=== PATIENT | male | born 1955 | race Caucasian/White ===

== ENCOUNTER → 2016-07-28 | Outpatient (CLI) | payer MEDICAID ==
[~2016-07-28] MED LIST: ALDACTONE; BUDE10.2 IH; BUDE6HFA INH; CHOLESTYRAMINE; CLCX200C; DIAZ10TA3 PO; DIAZ2TAB2 PO; FLUC100T PO; FURO20TA4 PO; FURO40TA4 PO; HYDR1TAB86 PO; LACT10SO33; LACT10SO33 PO; LANS30CA PO; LEVO500T2 PO; LNS30CCR; MAGN500C15 PO; MAGNESIUM PO; METH10TA12 PO; METH20TA34 PO; METO10TA3 PO; METO25TA PO; NR-TACRO1; NR-TACRO1 PO; OMEP20CA6; ONDN4T PO; OSLT75C PO; OXC5T; OXYC10TA7 PO; OXYC20TA4; OXYC30TA; OXYC30TA PO; OXYC30TA80 PO; OXYC80TA PO; OXYC80TA39 PO; OXYC80TA4 PO; OXYCODONE 30 MG PO; PHEN16.223 PO; PNT40TEC; POTA10TA10 PO; POTA10TA36 PO; PRD20T PO; PREG50C; RELISTOR12 SQ; RIFA550T PO; RT-ALBUINH IH; SENN-101 PO; SENN8.6T80 PO; SIME125C PO; SPIR100T PO; SPIR100T28 PO; SULF1TAB38 PO; TACR0.5C2 PO; TACR0.5C6 PO; [UNRECOGNIZED DRUG - CODE]; [UNRECOGNIZED DRUG - CODE]; [UNRECOGNIZED DRUG - CODE] PO; [UNRECOGNIZED DRUG - OTHER]; [UNRECOGNIZED DRUG - OTHER] PO
--- OUTSIDE RECORDS SUMMARY | 2016-07-28 10:06 | XMS REPORT | Continuity of Care Document ---
Author Author [facility] Organization [facility] Address Unknown Phone Unavailable Care Team Providers Care Cardiovascular Surgical Tech Name Role Phone Max Anne PCP Unavailable Source Comments Some departments are not documenting in the electronic medical record. If you do not see the information that you expected, contact Release of Information in the Health Information Management department at [phone] for further assistance in locating additional records.[facility] Active Allergies and Adverse Reactions Allergen Noted Date Severity Reactions Comments Codeine 12/16/2003 Medium NAUSEA ONLY, ITCHING, SEE Ringing in ears COMMENTS Fentanyl 03/06/2005 High SEE COMMENTS Restlessness, sleep loss, Hyperactivity Heparin Analogues 12/18/2003 Medium NAUSEA ONLY Sumatriptan 03/06/2005 High SEE COMMENTS Hypertension, Headache Current Medications Prescription Sig. Disp. Refills Start End Date Status Date oxycodone (OXY-IR) 30 mg Take 1 Tab by mouth Twice Active tablet Daily as needed. oxycodone SR (OXYCONTIN) Take 1 Tab by mouth Every Active 80 mg tablet 12 Hours. tacrolimus (PROGRAF) 1 mg Take 1 Cap by mouth Twice Active capsule Daily. lansoprazole DR Take 1 Cap by mouth Active (PREVACID) 30 mg capsule Daily. spironolactone Take 1 Tab by mouth Active (ALDACTONE) 100 mg tablet Daily. Cholestyramine, Bulk, Take 1 Packet by mouth Active Powd Four Times Daily. Lactulose 10 gram/15 mL Take 30 mL by mouth Three Active Syrp Times Daily as needed. oxycodone 5 mg capsule Take 1 Cap by mouth Every 30 Cap 0 10/30/19 Active 4 Hours as needed. 1-2 10 tablets as needed for pain Active Problems Not on file Most Recent Encounters Date Type Specialty Providers Description 07/25/2016 Telephone Transplant Surgery True, Beck, RN Labs Only Social History Tobacco Use Types Packs/Day Years Used Date Former Smoker Cigarettes 1 20 Alcohol Use Drinks/Week oz/Week Comments No Last Filed Vital Signs Vital Sign Reading Time Taken Blood Pressure 94/51 10/29/2009 6:00 AM CDT Pulse 79 10/29/2009 6:00 AM CDT Temperature 37.1 C (98.8 F) 10/29/2009 6:00 AM CDT Respiratory Rate - - Height 1.803 m (5' 11") 10/28/2009 9:00 AM CDT Weight 65.5 kg (144 lb 6.4 oz) 10/28/2009 9:00 AM CDT Body Mass Index 20.15 10/28/2009 9:00 AM CDT Oxygen Saturation 94% 10/29/2009 6:00 AM CDT Plan of Care Health Maintenance Due Date Last Done Comments Physical (Comprehensive) 10/10/1963 Exam Pertussis Vaccine 10/10/1967 Tetanus Vaccine 1973 Colorectal Cancer 2006 Screening Influenza Vaccine 03/09/2016 Hepatitis C Screening Completed 03/16/2004 Results from Last 3 Months Not on file
--- NOTE | 2016-07-28 11:34 | Diagnostic Imaging Report ---
PROCEDURE: US abdomen complete. TECHNIQUE: Multiple real-time grayscale images were obtained over the abdomen in various projections. INDICATION: Cirrhosis. FINDINGS: The visualized portions of the pancreas appear unremarkable. The liver is fairly homogeneous with no focal lesion seen. The portal vein is patent with hepatopetal flow seen. There is a TIPS stent seen that appears patent. The left lobe of the liver is partially obscured by bowel gas. The CBD is 1 cm in caliber, normal after cholecystectomy. The spleen is 15.0 x 7.4 x 5.4 cm, borderline enlarged. There is normal caliber of the visualized mid abdominal aorta. The IVC visualized portions appear unremarkable. The right kidney is 11.0 cm, and the left kidney is 11.8 cm in length. There is no hydronephrosis or focal lesion in either kidney. No ascites seen. IMPRESSION: Some limitations to this study as above. Patent TIPS stent seen. No definite abnormality. Dictated by: Dictated on workstation # [id number]
== END ==
LOC: RAD 10:03
PROVIDERS: ATTEND Internal Medicine Gastroenterology
DX: K74.60 Unspecified cirrhosis of liver (principal)
CPT/HCPCS: 76700

== ENCOUNTER → 2016-07-31 | Outpatient (CLI) | payer MEDICAID ==
--- OUTSIDE RECORDS SUMMARY | 2016-07-31 12:51 | XMS REPORT | Continuity of Care Document ---
Author Author [facility] Organization [facility] Address Unknown Phone Unavailable Care Team Providers Care Pet Adoption Counselor Name Role Phone Max Anne PCP Unavailable Source Comments Some departments are not documenting in the electronic medical record. If you do not see the information that you expected, contact Release of Information in the Health Information Management department at [phone] for further assistance in locating additional records.[facility] Active Allergies and Adverse Reactions Allergen Noted [...]
--- NOTE | 2016-07-31 14:32 | Diagnostic Imaging Report ---
PROCEDURE: CT chest without contrast. TECHNIQUE: Multiple contiguous axial images were obtained through the chest without the use of intravenous contrast. INDICATION: Lung mass, COPD. FINDINGS: The CT chest exam performed on 07/22/15 indicated multiple lung nodules primarily in the right lower lobe and right middle lobe. The subsequent PET/CT exam of 08/03/15 indicated that the nodules were not hypermetabolic in nature. The subsequent CT chest exam of 10/29/15 indicated that the nodules in the lungs have resolved with the exception of a 6 mm opacity in the anterior aspect of the right middle lobe and another 6 mm pleural-based nodule along the posterior aspect of the right upper lobe. Those findings are again evident on this study and no different. No other parenchymal nodule is identified. The emphysematous changes seen on the previous study are again visualized and no different. There is no sign of failure, pneumonia or pleural effusion to indicate an acute abnormality. The heart size is within normal limits and stable when compared to the prior exam. The aorta is not abnormally dilated. The prior study did note a 9.6 mm lymph node in the pretracheal region on the right. That finding is again evident and no different. A few other smaller mediastinal nodes are also seen and these appear stable as well. The prior study also identified 2 contiguous lymph nodes in the left axilla. These have a conglomerate size of approximately 1.6 cm. Those findings are again evident and no different. The thyroid gland is unremarkable. The sections through the upper abdomen fail to show any sign of an acute abnormality. The TIPS catheter noted previously is again evident. The bone windows show no evidence for a fracture or for a destructive lesion. IMPRESSION: 1. The 2 small nodules in the right middle lobe and right upper lung seen previously are again evident and no different. Most likely, these are benign. There is no other parenchymal nodule identified. A six-month followup CT chest exam would be recommended for continued evaluation. 2. The nodes in the mediastinum and left axilla seen previously are also again evident and unchanged. There is no new mediastinal or hilar adenopathy. 3. There are emphysematous changes involving both lungs but there is no sign of an acute cardiopulmonary abnormality. Dictated by: Dictated on workstation # [id number]
== END ==
LOC: RAD 12:48
PROVIDERS: ATTEND Nurse Practitioner Family
DX: R91.8 Other nonspecific abnormal finding of lung field (principal); J44.9 Chronic obstructive pulmonary disease, unspecified; F17.200 Nicotine dependence, unspecified, uncomplicated
CPT/HCPCS: 71250

== ENCOUNTER → 2016-11-08 | Outpatient (CLI) | payer MEDICAID ==
[2016-11-08 13:56] LABS: BASOPHILS # (AUTO) 0.1 10^3/uL (0.0-0.1); BASOPHILS % (AUTO) 1 % (0-10); EOSINOPHILS # (AUTO) 0.8 10^3/uL (0.0-0.3); EOSINOPHILS % (AUTO) 6 % (0-10); LYMPHOCYTES # (AUTO) 3.2 X 10^3 (1.0-4.0); LYMPHOCYTES % (AUTO) 25 % (12-44); MEAN CORPUSCULAR HEMOGLOBIN 31 PG (25-34); MEAN CORPUSCULAR HGB CONC 35 G/DL (32-36); MEAN CORPUSCULAR VOLUME 91 FL (80-99); MEAN PLATELET VOLUME 10.8 FL (7.4-10.4); MONOCYTES # (AUTO) 1.3 X 10^3 (0.0-1.0); MONOCYTES % (AUTO) 10 % (0-12); NEUTROPHILS # (AUTO) 7.6 X 10^3 (1.8-7.8); NEUTROPHILS % (AUTO) 59 % (42-75); PLATELET COUNT 110 10^3/uL (130-400); RED BLOOD COUNT 3.84 10^6/uL (4.35-5.85); RED CELL DISTRIBUTION WIDTH 14.5 % (10.0-14.5); WHITE BLOOD COUNT 12.9 10^3/uL (4.3-11.0)
[2016-11-08 14:13] LABS: ALBUMIN 3.3 G/DL (3.2-4.5); BILIRUBIN,TOTAL 1.3 MG/DL (0.1-1.0); CALCIUM 8.9 MG/DL (8.5-10.1); CREATININE SERUM 1.68 MG/DL (0.60-1.30); MAGNESIUM 1.5 MG/DL (1.8-2.4); POTASSIUM 4.1 MMOL/L (3.6-5.0); TOTAL PROTEIN 7.1 G/DL (6.4-8.2)
== END ==
LOC: LAB 12:53
PROVIDERS: ATTEND Internal Medicine Gastroenterology
DX: E83.42 Hypomagnesemia (principal)
CPT/HCPCS: 36415; 80053; 80197; 80306; 82140; 83735; 85025

== ENCOUNTER → 2016-11-27 | Outpatient (CLI) | payer MEDICAID | LOC: LAB 13:23 | PROVIDERS: ATTEND Internal Medicine Gastroenterology | DX: Z94.4 Liver transplant status (principal) | CPT/HCPCS: 36415; 80197 ==

== ENCOUNTER 2016-11-28 02:09 | Emergency (ER) | payer MEDICAID ==
[2016-11-28 02:18] VITALS: BP 0/0
== END 2016-11-28 02:18 | disposition left against medical advice (07) ==
LOC: EDUNIT# 02:09 → ER 02:13
DX: R53.81 Other malaise (principal); Z94.4 Liver transplant status; Z53.21 Procedure and treatment not carried out due to patient leaving prior to being seen by health care provider
CPT/HCPCS: 99281

== ENCOUNTER → 2016-12-21 | Outpatient (CLI) | payer MEDICAID ==
[2016-12-21 14:45] LABS: BASOPHILS # (AUTO) 0.1 10^3/uL (0.0-0.1); BASOPHILS % (AUTO) 1 % (0-10); EOSINOPHILS % (AUTO) 12 % (0-10); LYMPHOCYTES # (AUTO) 2.1 X 10^3 (1.0-4.0); LYMPHOCYTES % (AUTO) 27 % (12-44); MEAN CORPUSCULAR HEMOGLOBIN 32 PG (25-34); MEAN CORPUSCULAR HGB CONC 35 G/DL (32-36); MEAN CORPUSCULAR VOLUME 93 FL (80-99); MEAN PLATELET VOLUME 10.7 FL (7.4-10.4); MONOCYTES # (AUTO) 1.1 X 10^3 (0.0-1.0); MONOCYTES % (AUTO) 14 % (0-12); NEUTROPHILS # (AUTO) 3.6 X 10^3 (1.8-7.8); NEUTROPHILS % (AUTO) 46 % (42-75); PLATELET COUNT 104 10^3/uL (130-400); RED BLOOD COUNT 3.73 10^6/uL (4.35-5.85); RED CELL DISTRIBUTION WIDTH 14.6 % (10.0-14.5); WHITE BLOOD COUNT 7.8 10^3/uL (4.3-11.0)
[2016-12-21 15:00] LABS: BILIRUBIN,URINE NEGATIVE (NEGATIVE); KETONES,URINE NEGATIVE (NEGATIVE); LEUKOCYTE ESTERASE ,URINE NEGATIVE (NEGATIVE); NITRITE,URINE NEGATIVE (NEGATIVE); PH,URINE 5 (5-9); PROTEIN,URINE 3+ (NEGATIVE); UROBILINOGEN,URINE NORMAL (NORMAL)
[2016-12-21 15:08] LABS: SQUAMOUS EPITHELIAL CELL,UR 0-2 /HPF
[2016-12-21 15:09] LABS: BILIRUBIN,DIRECT 0.5 MG/DL (0.0-0.3); BILIRUBIN,INDIRECT 0.8 MG/DL; BILIRUBIN,TOTAL 1.3 MG/DL (0.1-1.0); CALCIUM 8.5 MG/DL (8.5-10.1); CREATININE SERUM 1.68 MG/DL (0.60-1.30); ICTERUS 0.8 (0-1.9); MAGNESIUM 1.8 MG/DL (1.8-2.4); PHOSPHORUS 3.2 MG/DL (2.3-4.7); POTASSIUM 4.1 MMOL/L (3.6-5.0); TOTAL PROTEIN 5.9 GM/DL (6.4-8.2); URIC ACID 6.5 MG/DL (2.6-7.2)
[2016-12-21 15:11] LABS: BAND NEUTROPHILS 1 %; BASOPHILS % (MANUAL) 0 %; EOSINOPHILS % (MANUAL) 6 %; LYMPHOCYTES % (MANUAL) 37 %; NEUTROPHILS % (MANUAL) 41 %
[2016-12-21 15:18] LABS: PROTEIN/CREATININE RATIO 1.42
[2016-12-22 07:14] LABS: CALCIUM PARA THYROID HORMONE 8.3 mg/dL (8.5-10.5)
== END ==
LOC: LAB 13:55
PROVIDERS: ATTEND Internal Medicine Nephrology
DX: E55.9 Vitamin D deficiency, unspecified (principal); J20.9 Acute bronchitis, unspecified; E83.42 Hypomagnesemia; N18.3 Chronic kidney disease, stage 3 (moderate)
CPT/HCPCS: 36415; 80069; 80076; 81000; 82306; 82550; 82570; 83735; 83970; 84156; 84550; 85007; 85025; 85027

== ENCOUNTER → 2016-12-26 | Outpatient (CLI) | payer MEDICAID | LOC: LAB 13:36 | PROVIDERS: ATTEND Internal Medicine Gastroenterology | DX: K74.60 Unspecified cirrhosis of liver (principal) | CPT/HCPCS: 36415; 82140 ==

== ENCOUNTER 2017-01-21 09:52 | Emergency (ER) | payer MEDICAID ==
[~2017-01-21] VITALS: Ht 182.9 cm; Wt 73.9 kg
[2017-01-21] MEDS ORDERED: morphine INJ 10 MG/ML 1ML (SYR OR VIAL) IM ONE (10:30)
--- NOTE | 2017-01-21 10:32 | ED Abdominal Pain ---
General Stated Complaint: R SIDE PAIN Source of Information: Patient Exam Limitations: No Limitations History of Present Illness Time Seen By Provider: 10:30 Initial Comments To ER with right-sided abdominal pain. His pain began over a month ago and has been worked up by Dr. Miller, photograph tinter in [place] as well as Dr. Phipps, box sorter in [place]. He was admitted to the hospital last week over there. He has a history of hepatitis C, liver transplant in 2004. History of chronic kidney disease. States that he is out of his oxycodone 80 mg tablets which he takes 3 times a day. He is scheduled to see Dr. Phipps tomorrow and Dr[facility]. He states he is here because he is out of his pain medication for the last 3 days and cannot Sleep. He denies fevers chills nausea vomiting or diarrhea. He does have discharge papers with him from [facility]. He states this pain is not new to him and is the reason that he takes his oxycodone but has been worse lately. He states he was told his transplanted liver was too large and is pushing on his ribs and that is the cause of his chronic pain. Timing/Duration: 2-3 Days Severity/Quality: Moderate Location: RUQ, RLQ Radiation: No Radiation Activities at Onset: None Allergies and Home Medications Allergies Coded Allergies: Heparin Analogues (Verified Allergy, Mild, 07/22/15) codeine (Verified Allergy, Unknown, TAKES OXYCODONE AT HOME, 07/22/15) fentanyl (Verified Allergy, Unknown, 07/22/15) sumatriptan (Verified Allergy, Unknown, 07/22/15) zolpidem (Verified Allergy, Unknown, 07/22/15) Uncoded Allergies: NSADS (Allergy, Unknown, 04/10/14) CONTRAST DYE/RADIOLOGY DYE (Adverse Reaction, Unknown, 04/10/14) DUE TO KIDNEY FUNCTION Home Medications Albuterol Sulfate 8.5 Gm Hfa.aer.ad, 2 PUFF IH Q4H PRN for SHORTNESS OF BREATH, (Reported) Budesonide/Formoterol Fumarate 10.2 Gm Hfa.aer.ad, 2 PUFF IH BID PRN for SHORTNESS OF BREATH, (Reported) Diazepam 10 Mg Tablet, 10 MG PO HS PRN for ANXIETY, (Reported) Fluconazole 100 Mg Tablet, 100 MG PO DAILY, #7 Prescribed by: MARJAN STANLEY on 07/24/1524 Lactulose 10 G/15 Ml Solution, 10 ML PO TID PRN, (Reported) NEEDED FOR HIGH AMONIA LEVELS Levofloxacin 500 Mg Tablet, 500 MG PO DAILY, #4 Prescribed by: MARJAN STANLEY on 07/24/1524 Magnesium Oxide 500 Mg Capsule, 500 MG PO DAILY, (Reported) Methylphenidate HCl 20 Mg Tablet, 20-40 MG PO DAILY, (Reported) TAKES 1 TO 2 (20 MG) TABLETS Oxycodone HCl 80 Mg Tab.er.12h, 80 MG PO TID, (Reported) Oxycodone HCl 30 Mg Tablet, 30 MG PO Q4H PRN for PAIN, (Reported) Potassium Chloride 10 Meq Tablet.er, 10 MEQ PO BID, (Reported) Rifaximin 550 Mg Tablet, 550 MG PO BID, (Reported) Senna 8.6 Mg Tab, 17.2 MG PO BID, (Reported) Tacrolimus 0.5 Mg Capsule, 1 MG PO DAILY, (Reported) TAKES 2 (0.5 MG) CAPSULES Tacrolimus Anhydrous 0.5 Mg Capsule, 0.5 MG PO HS, (Reported) Review of Systems Constitutional: see HPI EENTM: No Symptoms Reported Respiratory: No Symptoms Reported Cardiovascular: No Symptoms Reported Gastrointestinal: See HPI, Abdominal Pain, Denies Constipated, Denies Nausea Genitourinary: No Symptoms Reported Musculoskeletal: no symptoms reported Skin: no symptoms reported Psychiatric/Neurological: No Symptoms Reported Endocrine: No Symptoms Reported Past Qbhomju-Zeigyd-Wwfizq Hx Patient Social History Recent Foreign Travel: No Contact w/Someone Who Travel: No Immunizations Up To Date Tetanus Booster (TDap): Less than 5yrs PED Vaccines UTD: Yes Date of Pneumonia Vaccine: May 09, 2015 Date of Influenza Vaccine: Jul 22, 2015 Seasonal Allergies Seasonal Allergies: No Surgeries HX Surgeries: Yes (LIVER TRANSPLANT 2004. BROKEN LEFT ARM 2011. PORT PLACEMENT. LIVER SHUNT) Respiratory Hx Respiratory Disorders: Yes Respiratory Disorders: Asthma, Emphysema Cardiovascular Hx Cardiac Disorders: Yes Neurological Hx Neurological Disorders: Yes (CAUSED FROM ANTI REJECTION MED) Reproductive System Hx Reproductive Disorders: No Sexually Transmitted Disease: No HIV/AIDS: No Genitourinary Hx Genitourinary Disorders: Yes Genitourinary Disorders: Renal Failure Gastrointestinal Hx Gastrointestinal Disorders: Yes (chronic abdominal pain) Gastrointestinal Disorders: Liver Disease/Jaundice, Hepatitis, Gall Bladder Disease Musculoskeletal Hx Musculoskeletal Disorders: Yes ( right dislocated shoulde, broken arm age 13 & 2 years ago , siatica nerve) Musculoskeletal Disorders: Arthritis, Fractures Endocrine Hx Endocrine Disorders: No HEENT HX ENT Disorders: Yes (WEARS GLASSES) Loss of Vision: Denies Hearing Impairment: Hard of Hearing Cancer Hx Cancer: Yes Cancer: Liver Psychosocial Hx Psychiatric Problems: Yes Behavioral Health Disorders: Anxiety, Depression Integumentary HX Skin/Integumentary Disorder: Yes (BRUISES EASY) Blood Transfusions Hx Blood Disorders: No Adverse Reaction to a Blood Tr: No Family Medical History Family Medial History: Not obtainable due to adoption Physical Exam Vital Signs Capillary Refill : General Appearance: WD/WN, no apparent distress, other (appears chronically ill and older than stated age) HEENT: PERRL/EOMI, normal ENT inspection Neck: non-tender, full range of motion Respiratory: no respiratory distress, no accessory muscle use, decreased breath sounds Cardiovascular: regular rate, rhythm, no murmur Gastrointestinal: normal bowel sounds, soft, tenderness (slight tenderness right side of the abdomen) Extremities: normal range of motion, non-tender Neurologic/Psychiatric: alert, normal mood/affect, oriented x 3 Skin: normal color, warm/dry Progress/Results/Core Measures Results/Orders My Orders Orders - MAXIME AMAYA APRN Morphine Injection (Morphine Injection (01/21/17 10:30) Departure Impression Impression: Primary Impression: Chronic pain Disposition: 01 HOME, SELF-CARE Condition: Stable Departure-Patient Inst. Decision time for Depature: 10:37 Referrals: TEREZA JAVIER MD (PCP/Family) Primary Care Physician Patient Instructions: CHRONIC PAIN Add. Discharge Instructions: 1. Return to ER for any concerns such as fevers chills or feeling poorly 2. Follow-up with your doctor as scheduled this week MAXIME AMAYA APRN Jan 21, 2017 10:32
[2017-01-21 10:55] VITALS: BP 185/99
== END 2017-01-21 10:55 | disposition home or self-care (01) ==
LOC: EDUNIT# 09:52 → ER 09:54
DX: R10.11 Right upper quadrant pain (principal); R10.31 Right lower quadrant pain; G89.29 Other chronic pain; J43.9 Emphysema, unspecified; J45.909 Unspecified asthma, uncomplicated; B19.20 Unspecified viral hepatitis C without hepatic coma; N18.9 Chronic kidney disease, unspecified; F41.9 Anxiety disorder, unspecified; F32.9 Major depressive disorder, single episode, unspecified; M19.90 Unspecified osteoarthritis, unspecified site; Z87.19 Personal history of other diseases of the digestive system; Z94.4 Liver transplant status
CPT/HCPCS: 96372; 99284

== ENCOUNTER 2017-01-21 19:43 | Emergency (ER) | payer MEDICAID ==
[~2017-01-21] VITALS: Ht 182.9 cm; Wt 78.5 kg
[2017-01-21 20:05] VITALS: BP 160/97
--- NOTE | 2017-01-21 20:11 | ED Abdominal Pain ---
General Chief Complaint: General Problems/Pain Stated Complaint: SIDE AB PAIN Nursing Triage Note: Patient advises he was seen this am secondary to right abdominal pain. He advised that he received a shot of morphine that has since worn off and he is experiencing pain again. Sepsis Screen: No Definite Risk Source of Information: Patient Exam Limitations: No Limitations History of Present Illness Time Seen By Provider: 20:08 Initial Comments To ER with severe right-sided abdominal pain. Patient was seen here earlier this morning for the same complaint. He states that he been out of his pain medicine since and his abdominal pain is being worked up by Dr. Miller and his nurse aide evaluator in [place]. The pain is not new to him is been present for over a month. He takes oxycodone extended release 80 mg tablets 3 times a day. He was prescribed a 28 day supply of these 24 days ago and states that he ran out 4 days ago. He denies fevers chills constipation diarrhea or vomiting. Severity/Quality: Severe Location: RUQ, RLQ Radiation: No Radiation Allergies and Home Medications Allergies Coded Allergies: Heparin Analogues (Verified Allergy, Mild, 07/22/15) codeine (Verified Allergy, Unknown, TAKES OXYCODONE AT HOME, 07/22/15) fentanyl (Verified Allergy, Unknown, 07/22/15) sumatriptan (Verified Allergy, Unknown, 07/22/15) zolpidem (Verified Allergy, Unknown, 07/22/15) Uncoded Allergies: NSADS (Allergy, Unknown, 04/10/14) CONTRAST DYE/RADIOLOGY DYE (Adverse Reaction, Unknown, 04/10/14) DUE TO KIDNEY FUNCTION Home Medications Albuterol Sulfate 8.5 Gm Hfa.aer.ad, 2 PUFF IH Q4H PRN for SHORTNESS OF BREATH, (Reported) Budesonide/Formoterol Fumarate 10.2 Gm Hfa.aer.ad, 2 PUFF IH BID PRN for SHORTNESS OF BREATH, (Reported) Diazepam 10 Mg Tablet, 10 MG PO HS PRN for ANXIETY, (Reported) Fluconazole 100 Mg Tablet, 100 MG PO DAILY, #7 Prescribed by: MARJAN STANLEY on 07/24/15 0924 Lactulose 10 G/15 Ml Solution, 10 ML PO TID PRN, (Reported) NEEDED FOR HIGH AMONIA LEVELS Levofloxacin 500 Mg Tablet, 500 MG PO DAILY, #4 Prescribed by: AMRJAN STANLEY on 07/24/15 0924 Magnesium Oxide 500 Mg Capsule, 500 MG PO DAILY, (Reported) Methylphenidate HCl 20 Mg Tablet, 20-40 MG PO DAILY, (Reported) TAKES 1 TO 2 (20 MG) TABLETS Oxycodone HCl 80 Mg Tab.er.12h, 80 MG PO TID, (Reported) Oxycodone HCl 30 Mg Tablet, 30 MG PO Q4H PRN for PAIN, (Reported) Potassium Chloride 10 Meq Tablet.er, 10 MEQ PO BID, (Reported) Rifaximin 550 Mg Tablet, 550 MG PO BID, (Reported) Senna 8.6 Mg Tab, 17.2 MG PO BID, (Reported) Tacrolimus 0.5 Mg Capsule, 1 MG PO DAILY, (Reported) TAKES 2 (0.5 MG) CAPSULES Tacrolimus Anhydrous 0.5 Mg Capsule, 0.5 MG PO HS, (Reported) Review of Systems Constitutional: see HPI EENTM: No Symptoms Reported Respiratory: No Symptoms Reported Cardiovascular: No Symptoms Reported Gastrointestinal: See HPI, Abdominal Pain Genitourinary: No Symptoms Reported Musculoskeletal: no symptoms reported Skin: no symptoms reported Psychiatric/Neurological: No Symptoms Reported Past Kcozynw-Aunbcg-Kjgfzg Hx Patient Social History Alcohol Use: Occasionally Uses Recreational Drug Use: No Smoking Status: Current Everyday Smoker Type Used: Cigarettes 2nd Hand Smoke Exposure: Yes Recent Foreign Travel: No Contact w/Someone Who Travel: No Recent Infectious Disease Expo: No Immunizations Up To Date Tetanus Booster (TDap): Less than 5yrs PED Vaccines UTD: Yes Date of Pneumonia Vaccine: May 09, 2015 Date of Influenza Vaccine: Jul 22, 2015 Seasonal Allergies Seasonal Allergies: No Surgeries HX Surgeries: Yes (LIVER TRANSPLANT 2004. BROKEN LEFT ARM 2011. PORT PLACEMENT. LIVER SHUNT) Respiratory Hx Respiratory Disorders: Yes Respiratory Disorders: Asthma, Emphysema Cardiovascular Hx Cardiac Disorders: Yes Neurological Hx Neurological Disorders: Yes (CAUSED FROM ANTI REJECTION MED) Reproductive System Hx Reproductive Disorders: No Sexually Transmitted Disease: No HIV/AIDS: No Genitourinary Hx Genitourinary Disorders: Yes Genitourinary Disorders: Renal Failure Gastrointestinal Hx Gastrointestinal Disorders: Yes (chronic abdominal pain) Gastrointestinal Disorders: Liver Disease/Jaundice, Hepatitis, Gall Bladder Disease Musculoskeletal Hx Musculoskeletal Disorders: Yes ( right dislocated shoulde, broken arm age 13 & 2 years ago , siatica nerve) Musculoskeletal Disorders: Arthritis, Fractures Endocrine Hx Endocrine Disorders: No HEENT HX ENT Disorders: Yes (WEARS GLASSES) Loss of Vision: Denies Hearing Impairment: Hard of Hearing Cancer Hx Cancer: Yes Cancer: Liver Psychosocial Hx Psychiatric Problems: Yes Behavioral Health Disorders: Anxiety, Depression Integumentary HX Skin/Integumentary Disorder: Yes (BRUISES EASY) Blood Transfusions Hx Blood Disorders: No Adverse Reaction to a Blood Tr: No Family Medical History Family Medial History: Not obtainable due to adoption Physical Exam Vital Signs VS - Last 72 Hours, by Label 01/21/17 01/21/17 19:59 20:05 Temp 98.7 Pulse 71 71 Resp 16 16 B/P (MAP) 160/97 Pulse Ox 97 97 O2 Delivery Room Air Room Air Capillary Refill : Less Than 3 Seconds General Appearance: WD/WN, no apparent distress, other (I advised the patient that if his pain is so severe we should check blood work. However I would not be giving another shot of morphine or refilling his oxycodone prescription before determining the cause of his abdominal pain. He states "well then admit me!". Advised him that I could not do this without checking blood work area patient states "no, I'm having labs drawn tomorrow when you're not checking them tonight". He states he will be leaving and talking with administration tomorrow) Progress/Results/Core Measures Results/Orders Vital Signs/I&O Vital Sign - Last 12Hours 01/21/17 01/21/17 19:59 20:05 Temp 98.7 Pulse 71 71 Resp 16 16 B/P (MAP) 160/97 Pulse Ox 97 97 O2 Delivery Room Air Room Air Blood Pressure Mean: 118 Departure Impression Impression: Primary Impression: Left against medical advice Disposition: 07 AGAINST MEDICAL ADVICE Condition: Against Medical Advice Departure-Patient Inst. Referrals: TEREZA JAVIER MD (PCP/Family) Primary Care Physician MAXIME AMAYA APRN Jan 21, 2017 20:11
== END 2017-01-21 20:06 | disposition left against medical advice (07) ==
LOC: EDUNIT# 19:43 → ER 19:45
DX: R10.11 Right upper quadrant pain (principal); R10.31 Right lower quadrant pain; J43.9 Emphysema, unspecified; J45.909 Unspecified asthma, uncomplicated; F41.9 Anxiety disorder, unspecified; F32.9 Major depressive disorder, single episode, unspecified; M19.90 Unspecified osteoarthritis, unspecified site; F17.210 Nicotine dependence, cigarettes, uncomplicated; Z85.05 Personal history of malignant neoplasm of liver; Z87.19 Personal history of other diseases of the digestive system; Z94.4 Liver transplant status
CPT/HCPCS: 99281

== ENCOUNTER → 2017-01-25 | Outpatient (CLI) | payer MEDICAID ==
[~2017-01-25] MED LIST changes: +AMLO5TAB2 PO; +CHOL20003 PO; +LACT10SO PO; +MAGN500T PO; +METH-288 PO; +METH10TA3 PO; +NADO40TA PO; +SENN-1 PO; +TACR0.5C PO
[2017-01-25 13:29] LABS: BASOPHILS # (AUTO) 0.1 10^3/uL (0.0-0.1); BASOPHILS % (AUTO) 1 % (0-10); BILIRUBIN,URINE NEGATIVE (NEGATIVE); EOSINOPHILS % (AUTO) 11 % (0-10); KETONES,URINE NEGATIVE (NEGATIVE); LEUKOCYTE ESTERASE ,URINE NEGATIVE (NEGATIVE); LYMPHOCYTES # (AUTO) 2.4 X 10^3 (1.0-4.0); LYMPHOCYTES % (AUTO) 24 % (12-44); MEAN CORPUSCULAR HEMOGLOBIN 32 PG (25-34); MEAN CORPUSCULAR HGB CONC 34 G/DL (32-36); MEAN CORPUSCULAR VOLUME 95 FL (80-99); MEAN PLATELET VOLUME 11.2 FL (7.4-10.4); MONOCYTES # (AUTO) 1.4 X 10^3 (0.0-1.0); MONOCYTES % (AUTO) 14 % (0-12); NEUTROPHILS # (AUTO) 4.9 X 10^3 (1.8-7.8); NEUTROPHILS % (AUTO) 50 % (42-75); NITRITE,URINE NEGATIVE (NEGATIVE); PH,URINE 5 (5-9); PLATELET COUNT 127 10^3/uL (130-400); PROTEIN,URINE 3+ (NEGATIVE); RED BLOOD COUNT 4.01 10^6/uL (4.35-5.85); RED CELL DISTRIBUTION WIDTH 14.4 % (10.0-14.5); UROBILINOGEN,URINE NORMAL (NORMAL); WHITE BLOOD COUNT 9.8 10^3/uL (4.3-11.0)
[2017-01-25 13:36] LABS: SQUAMOUS EPITHELIAL CELL,UR 0-2 /HPF; WBC,URINE 0-2 /HPF
[2017-01-25 13:46] LABS: PROTEIN/CREATININE RATIO 0.69
[2017-01-25 13:47] LABS: ALBUMIN 2.9 GM/DL (3.2-4.5); CALCIUM 8.3 MG/DL (8.5-10.1); CREATININE SERUM 2.17 MG/DL (0.60-1.30); PHOSPHORUS 3.2 MG/DL (2.3-4.7); POTASSIUM 4.2 MMOL/L (3.6-5.0)
== END ==
LOC: LAB 13:00
PROVIDERS: ATTEND Internal Medicine Nephrology
DX: N18.3 Chronic kidney disease, stage 3 (moderate) (principal)
CPT/HCPCS: 36415; 80069; 81000; 82570; 84156; 85025

== ENCOUNTER → 2017-01-30 | Outpatient (CLI) | payer MEDICAID ==
[2017-01-30 16:34] LABS: ALBUMIN 2.9 GM/DL (3.2-4.5); CALCIUM 8.2 MG/DL (8.5-10.1); CREATININE SERUM 1.82 MG/DL (0.60-1.30); PHOSPHORUS 2.4 MG/DL (2.3-4.7); POTASSIUM 4.1 MMOL/L (3.6-5.0)
== END ==
LOC: LAB 16:05
PROVIDERS: ATTEND Internal Medicine Nephrology
DX: N18.3 Chronic kidney disease, stage 3 (moderate) (principal)
CPT/HCPCS: 36415; 80069

== ENCOUNTER → 2017-02-21 | Outpatient (CLI) | payer MEDICAID ==
[~2017-02-21] MED LIST changes: -AMLO5TAB2 PO; -CHOL20003 PO; -LACT10SO PO; -MAGN500T PO; -METH-288 PO; -METH10TA3 PO; -NADO40TA PO; -SENN-1 PO; -TACR0.5C PO
[2017-02-21 14:28] LABS: BILIRUBIN,URINE NEGATIVE (NEGATIVE); KETONES,URINE NEGATIVE (NEGATIVE); LEUKOCYTE ESTERASE ,URINE NEGATIVE (NEGATIVE); NITRITE,URINE NEGATIVE (NEGATIVE); PH,URINE 5 (5-9); PROTEIN,URINE 2+ (NEGATIVE); UROBILINOGEN,URINE NORMAL (NORMAL)
[2017-02-21 14:48] LABS: PROTEIN/CREATININE RATIO 0.8; SQUAMOUS EPITHELIAL CELL,UR RARE /HPF
[2017-02-21 14:54] LABS: BASOPHILS # (AUTO) 0.1 10^3/uL (0.0-0.1); BASOPHILS % (AUTO) 1 % (0-10); EOSINOPHILS # (AUTO) 1.6 10^3/uL (0.0-0.3); EOSINOPHILS % (AUTO) 15 % (0-10); LYMPHOCYTES # (AUTO) 2.9 X 10^3 (1.0-4.0); LYMPHOCYTES % (AUTO) 27 % (12-44); MEAN CORPUSCULAR HEMOGLOBIN 32 PG (25-34); MEAN CORPUSCULAR HGB CONC 34 G/DL (32-36); MEAN CORPUSCULAR VOLUME 93 FL (80-99); MEAN PLATELET VOLUME 10.7 FL (7.4-10.4); MONOCYTES # (AUTO) 1.5 X 10^3 (0.0-1.0); MONOCYTES % (AUTO) 14 % (0-12); NEUTROPHILS # (AUTO) 4.8 X 10^3 (1.8-7.8); NEUTROPHILS % (AUTO) 44 % (42-75); PLATELET COUNT 143 10^3/uL (130-400); RED CELL DISTRIBUTION WIDTH 14.1 % (10.0-14.5)
[2017-02-21 14:57] LABS: ALBUMIN 3.4 GM/DL (3.2-4.5); CALCIUM 8.8 MG/DL (8.5-10.1); CREATININE SERUM 2.04 MG/DL (0.60-1.30); PHOSPHORUS 2.7 MG/DL (2.3-4.7); POTASSIUM 3.8 MMOL/L (3.6-5.0)
== END ==
LOC: LAB 14:20
PROVIDERS: ATTEND Internal Medicine Nephrology
DX: N18.3 Chronic kidney disease, stage 3 (moderate) (principal)
CPT/HCPCS: 36415; 80069; 81000; 82570; 84156; 85025

== ENCOUNTER → 2017-02-21 | Outpatient (CLI) | payer MEDICAID ==
[2017-02-21 14:39] LABS: CALCIUM 8.6 MG/DL (8.5-10.1); CREATININE SERUM 2.05 MG/DL (0.60-1.30); POTASSIUM 3.8 MMOL/L (3.6-5.0)
== END ==
LOC: LAB 13:42
PROVIDERS: ATTEND Internal Medicine Gastroenterology
DX: K74.60 Unspecified cirrhosis of liver (principal)
CPT/HCPCS: 36415; 80048; 82140

== ENCOUNTER → 2017-03-05 | Outpatient (CLI) | payer MEDICAID ==
[2017-03-05 14:34] LABS: CREATININE SERUM 1.71 MG/DL (0.60-1.30); POTASSIUM 3.9 MMOL/L (3.6-5.0)
== END ==
LOC: LAB 13:54
PROVIDERS: ATTEND Internal Medicine Gastroenterology
DX: K74.60 Unspecified cirrhosis of liver (principal)
CPT/HCPCS: 36415; 80048

== ENCOUNTER → 2017-03-05 | Outpatient (CLI) | payer MEDICAID ==
[2017-03-05 14:38] LABS: CREATININE SERUM 1.71 MG/DL (0.60-1.30); POTASSIUM 3.9 MMOL/L (3.6-5.0)
[2017-03-05 14:39] LABS: ALBUMIN 3.4 GM/DL (3.2-4.5); PHOSPHORUS 2.8 MG/DL (2.3-4.7)
== END ==
LOC: LAB 13:49
PROVIDERS: ATTEND Internal Medicine Nephrology
DX: N18.3 Chronic kidney disease, stage 3 (moderate) (principal)
CPT/HCPCS: 36415; 80069

== ENCOUNTER → 2017-03-16 | Outpatient (CLI) | payer MEDICAID ==
[~2017-03-16] MED LIST changes: +AMLO5TAB2 PO; +CHOL20003 PO; +LACT10SO PO; +MAGN500T PO; +METH-288 PO; +METH10TA3 PO; +NADO40TA PO; +SENN-1 PO; +TACR0.5C PO
[2017-03-16 12:23] LABS: ALBUMIN 3.1 GM/DL (3.2-4.5); CALCIUM 8.9 MG/DL (8.5-10.1); CREATININE SERUM 1.91 MG/DL (0.60-1.30); POTASSIUM 3.9 MMOL/L (3.6-5.0)
== END ==
LOC: LAB 11:27
PROVIDERS: ATTEND Internal Medicine Nephrology
DX: I12.9 Hypertensive chronic kidney disease with stage 1 through stage 4 chronic kidney disease, or unspecified chronic kidney disease (principal); N18.3 Chronic kidney disease, stage 3 (moderate); R80.8 Other proteinuria; Z94.4 Liver transplant status
CPT/HCPCS: 36415; 80069; 80197; 82550

== ENCOUNTER 2017-03-28 23:29 | Inpatient (IN) | payer MEDICAID ==
[~2017-03-28] VITALS: Ht 182.9 cm; Wt 83.1 kg
[~2017-03-28 23:29] MED LIST changes: -AMLO5TAB2 PO; -CHOL20003 PO; -LACT10SO PO; -MAGN500T PO; -METH-288 PO; -METH10TA3 PO; -NADO40TA PO; +RT-ALBUTEROL/IPRATROPIUM 3 ML (DUONEB) VIAL ONE; +RT-IPRATROPIUM (ATROVENT) 0.5MG/2.5ML AMP IH ONE; -SENN-1 PO; -TACR0.5C PO
--- OUTSIDE RECORDS SUMMARY | 2017-03-28 23:35 | XMS REPORT | Clinical Summary ---
Author Author [facility] Organization [facility] Address Unknown Phone Unavailable Care Team Providers Care First Officer Name Role Phone PCP Unavailable Source Comments Some departments are not documenting in the electronic medical record. If you do not see the information that you expected, contact Release of Information in the Health Information Management department at [phone] for further assistance in locating additional records.[facility] Allergies Active Allergy Reactions Severity Noted Date Comments Fentanyl SEE COMMENTS High 03/06/2005 Restlessness, sleep loss, Hyperactivity Sumatriptan SEE COMMENTS High 03/06/2005 Hypertension, Headache Codeine NAUSEA ONLY, ITCHING, SEE Medium 12/16/2003 Ringing in ears COMMENTS Heparin Analogues NAUSEA ONLY Medium 12/18/2003 Current Medications Prescription Sig. Disp. Refills Start [...] for pain Active Problems Not on file Social History Tobacco Use Types Packs/Day Years Used Date Former Smoker Cigarettes 1 20 Alcohol Use Drinks/Week oz/Week Comments No Sex Assigned at Date Recorded Not on file Last Filed Vital Signs Vital Sign Reading Time Taken Blood Pressure 94/51 10/29/2009 6:00 AM CDT Pulse 79 10/29/2009 6:00 AM CDT Temperature 37.1 C (98.8 F) 10/29/2009 6:00 AM CDT Respiratory Rate - - Oxygen Saturation 94% 10/29/2009 6:00 AM CDT Inhaled Oxygen - - Concentration Weight 65.5 kg (144 lb 6.4 oz) 10/28/2009 9:00 AM CDT Height 180.3 cm (5' 11") 10/28/2009 9:00 AM CDT Body Mass Index 20.14 10/28/2009 9:00 AM CDT Plan of Treatment Health Maintenance Due Date Last Done Comments PHYSICAL (COMPREHENSIVE) 10/10/1963 EXAM PERTUSSIS VACCINE 10/10/1967 TETANUS VACCINE 1973 COLORECTAL CANCER 2006 SCREENING SHINGLES VACCINE 2016 INFLUENZA VACCINE 04/08/2017 HEPATITIS C SCREENING Completed 03/16/2004 Results Not on filefrom Last 3 Months
--- OUTSIDE RECORDS SUMMARY | 2017-03-28 23:36 | XMS REPORT ---
Author Author TEREZA JAVIER [facility] Address [address] [place] [address] Care Team Providers Care First Coat Operator Name Role Phone TEREZA JAVIER Unavailable PROBLEMS Type Condition ICD9-CM Code [id number] Code Onset Dates Condition Status SNOMED Code Problem Essential hypertension I10 Active 62006025 Problem Reactive depression F32.9 Active 97930841 Problem ZOSTAVAX DX V05.8 Active 35421018 Problem History of liver transplant Z94.4 Active 899133049 Problem Sciatica of left side M54.32 Active 27499932 ALLERGIES Unknown Allergies SOCIAL HISTORY No smoking Hx information available PLAN OF CARE VITAL SIGNS MEDICATIONS Medication Instructions Dosage Frequency Start Date End Date Duration Status OxyContin 80 MG Orally 3 times a day 1 tablet 8h Jul, Active Oxycodone HCl 30 MG Orally every 4 hours as needed 1 tablet Jul, Active RESULTS No Results PROCEDURES No Known procedures IMMUNIZATIONS No Known Immunizations
--- OUTSIDE RECORDS SUMMARY | 2017-03-28 23:36 | XMS REPORT ---
Author Author TEREZA JAVIER [facility] Address [address] [place] [address] Care Team Providers Care Truck Repair Service Estimator Name Role Phone TEREZA JAVIER Unavailable PROBLEMS Type Condition ICD9-CM Code [id number] Code Onset Dates Condition Status SNOMED Code Problem Essential hypertension I10 Active 72025998 Problem Reactive depression F32.9 Active 91432439 Problem ZOSTAVAX DX V05.8 Active 39686059 Problem History of liver transplant Z94.4 Active 569855000 Problem Sciatica of left side M54.32 Active 05192104 ALLERGIES Unknown Allergies SOCIAL HISTORY No smoking Hx information available PLAN OF CARE VITAL SIGNS MEDICATIONS Medication Instructions Dosage Frequency Start Date End Date Duration Status Oxycodone HCl 30 MG Orally every 4 hours as needed 1 tablet Aug, Active OxyContin 80 MG Orally 3 times a day 1 tablet 8h Aug, Active RESULTS No Results PROCEDURES No Known procedures IMMUNIZATIONS No Known Immunizations
[2017-03-28] MEDS ORDERED: PROPOFOL DRIP (ICU) 100 ML IV SCH (23:45)
[2017-03-28] MEDS ORDERED: ETOMIDATE IV SOLN 20 MG/10 ML VIAL IV ONE (23:45)
[2017-03-28] MEDS ORDERED: NS IV 1000 ML 1,000 ML IV SCH (23:45)
[2017-03-28] MEDS ORDERED: SUCCINYLCHOLINE INJ 100 MG/5 ML SYR INJ ONE (23:45)
[2017-03-28 23:49] LABS: BASOPHILS % (AUTO) 0 % (0-10); EOSINOPHILS # (AUTO) 0.6 10^3/uL (0.0-0.3); EOSINOPHILS % (AUTO) 3 % (0-10); LYMPHOCYTES # (AUTO) 2.6 X 10^3 (1.0-4.0); LYMPHOCYTES % (AUTO) 14 % (12-44); MEAN CORPUSCULAR HEMOGLOBIN 32 PG (25-34); MEAN CORPUSCULAR HGB CONC 34 G/DL (32-36); MEAN CORPUSCULAR VOLUME 93 FL (80-99); MEAN PLATELET VOLUME 11.3 FL (7.4-10.4); MONOCYTES # (AUTO) 0.8 X 10^3 (0.0-1.0); MONOCYTES % (AUTO) 4 % (0-12); NEUTROPHILS # (AUTO) 14.8 X 10^3 (1.8-7.8); NEUTROPHILS % (AUTO) 79 % (42-75); PLATELET COUNT 137 10^3/uL (130-400); RED BLOOD COUNT 3.66 10^6/uL (4.35-5.85); RED CELL DISTRIBUTION WIDTH 14.3 % (10.0-14.5); WHITE BLOOD COUNT 18.8 10^3/uL (4.3-11.0)
[2017-03-28] MEDS ORDERED: RT-ALBUTEROL/IPRATROPIUM 3 ML (DUONEB) VIAL ONE (23:56)
--- NOTE | 2017-03-28 23:56 | ED Neurological Problem ---
General Stated Complaint: CHOKING Source: patient, EMS, spouse Exam Limitations: clinical condition History of Present Illness Time seen by provider: 23:30 Initial Comments Patient presents to ER by EMS with chief complaint of altered mental status, choking. EMS reports that they were called on scene because the patient was choking on some pills had earlier per had some choking on food. He said he was very short of breath when they arrived he was in the car at the police station where they family members had drove him to. They loaded him up and started moving indoors ER and S1 they noticed he had a heart rate in the 40s and a sat duration rate in the 70s so they put him on a nonrebreather and were contemplating RSI but the patient was talking. Patient gives little history that he was short of breath but not having any pain anywhere or nausea. The reports that earlier this week the patient was obtunded and not taking his rifaximin or his lactulose for his liver failure as she is status post liver transplant and that his ammonia gotten up to 88 but after they got him back on his medicines he was improving and he just had lab this morning outpatient at [facility] lab. The ammonia this morning was 65. She says the patient this morning was having some problems choking on his food all of the dinner table and got up and ran to the bathroom and threw up some of it but otherwise was doing just fine feeling well again. Then tonight she was giving him his pills and saw them including the potassium and the rifaximin or very large pills so she has been getting them little bit by little bit and he still had a problem getting them down to like he was choking on them. She says after that he told her he was very short of breath. This worried her so she loaded him in the car drove the police station. Of note she says he also has a triple a but does not know how big it is and is never received any surgical attention. She denies any history of coronary disease or CHF. She says for the past couple days she's been coughing up frothy sputum. Allergies and Home Medications Allergies Coded Allergies: Heparin Analogues (Verified Allergy, Mild, 07/22/15) codeine (Verified Allergy, Unknown, TAKES OXYCODONE AT HOME, 07/22/15) fentanyl (Verified Allergy, Unknown, 07/22/15) sumatriptan (Verified Allergy, Unknown, 07/22/15) zolpidem (Verified Allergy, Unknown, 07/22/15) Uncoded Allergies: NSADS (Allergy, Unknown, 04/10/14) CONTRAST DYE/RADIOLOGY DYE (Adverse Reaction, Unknown, 04/10/14) DUE TO KIDNEY FUNCTION Home Medications Albuterol Sulfate 8.5 Gm Hfa.aer.ad, 2 PUFF IH Q4H PRN for SHORTNESS OF BREATH, (Reported) Budesonide/Formoterol Fumarate 10.2 Gm Hfa.aer.ad, 2 PUFF IH BID PRN for SHORTNESS OF BREATH, (Reported) Diazepam 10 Mg Tablet, 10 MG PO HS PRN for ANXIETY, (Reported) Fluconazole 100 Mg Tablet, 100 MG PO DAILY, #7 Prescribed by: MARJAN STANLEY on 07/24/15 0924 Lactulose 10 G/15 Ml Solution, 10 ML PO TID PRN, (Reported) NEEDED FOR HIGH AMONIA LEVELS Levofloxacin 500 Mg Tablet, 500 MG PO DAILY, #4 Prescribed by: MARJAN STANLEY on 07/24/15 0924 Magnesium Oxide 500 Mg Capsule, 500 MG PO DAILY, (Reported) Methylphenidate HCl 20 Mg Tablet, 20-40 MG PO DAILY, (Reported) TAKES 1 TO 2 (20 MG) TABLETS Oxycodone HCl 80 Mg Tab.er.12h, 80 MG PO TID, (Reported) Oxycodone HCl 30 Mg Tablet, 30 MG PO Q4H PRN for PAIN, (Reported) Potassium Chloride 10 Meq Tablet.er, 10 MEQ PO BID, (Reported) Rifaximin 550 Mg Tablet, 550 MG PO BID, (Reported) Senna 8.6 Mg Tab, 17.2 MG PO BID, (Reported) Tacrolimus 0.5 Mg Capsule, 1 MG PO DAILY, (Reported) TAKES 2 (0.5 MG) CAPSULES Tacrolimus Anhydrous 0.5 Mg Capsule, 0.5 MG PO HS, (Reported) Constitutional: see HPI (a thorough review of systems was unable to be obtained secondary to the patient's clinical condition) Past Ulehqsq-Iwsmko-Olkqrx Hx Patient Social History Alcohol Use: Denies Use Recreational Drug Use: No Smoking Status: Current Everyday Smoker Type Used: Cigarettes 2nd Hand Smoke Exposure: Yes Recent Foreign Travel: No Contact w/Someone Who Travel: No Immunizations Up To Date Tetanus Booster (TDap): Less than 5yrs PED Vaccines UTD: Yes Date of Pneumonia Vaccine: May 09, 2015 Date of Influenza Vaccine: Jul 22, 2015 Seasonal Allergies Seasonal Allergies: No Respiratory Respiratory Disorders: Asthma, Emphysema Currently Using CPAP: No Currently Using BIPAP: No Reproductive System Hx Reproductive Disorders: No Sexually Transmitted Disease: No HIV/AIDS: No Genitourinary Genitourinary Disorders: Renal Failure Gastrointestinal Gastrointestinal Disorders: Liver Disease/Jaundice, Hepatitis, Gall Bladder Disease Musculoskeletal Musculoskeletal Disorders: Arthritis, Fractures HEENT Loss of Vision: Denies Hearing Impairment: Hard of Hearing Cancer Cancer: Liver Psychosocial Behavioral Health Disorders: Anxiety, Depression Blood Transfusions Adverse Reaction to a Blood Tr: No Family Medical History Family Medial History: Not obtainable due to adoption Physical Exam Vital Signs Vital Sign - Last 12Hours 03/28/17 03/28/17 23:38 23:53 Temp 97.6 Pulse 49 Resp 21 B/P (MAP) 159/80 Pulse Ox 96 O2 Delivery Non Rebreather O2 Flow Rate 15.00 FiO2 92 Capillary Refill : General Appearance: WD/WN, moderate distress, thin HEENT: PERRL/EOMI, normal ENT inspection, TMs normal, pharynx normal Neck: non-tender, supple Respiratory: chest non-tender, decreased breath sounds, accessory muscle use ( mild with mild intercostal retractions), wheezing (scant bilateral) Cardiovascular: normal peripheral pulses, regular rate, rhythm, no edema, no JVD Peripheral Pulses: 3+ Dorsalis Pedis (R), 3+ Left Dors-Pedis (L), 3+ Radial Pulses (R), 3+ Radial Pulses (L) Gastrointestinal: normal bowel sounds, non tender, soft, no organomegaly Extremities: normal range of motion, no pedal edema, no calf tenderness, normal capillary refill Neurologic/Psychiatric: alert, oriented x 3, other (initial GCS 11) Crainal Nerves: normal hearing, PERRL Motor/Sensory: no motor deficit, no sensory deficit Skin: normal color, warm/dry Focused Exam Evaluation Lactate Level Laboratory Tests 03/28/17 23:54: Lactic Acid Level 1.13 Lactic Acid Level Laboratory Tests Test 03/28/17 23:54 Lactic Acid Level 1.13 MMOL/L (0.50-2.00) Progress/Results/Core Measures Results/Orders Lab Results Laboratory Tests Test 03/28/17 11:42 03/28/17 23:42 03/28/17 23:49 03/28/17 23:54 Range/Units White Blood Count 18.8 H 4.3-11.0 10^3/uL Red Blood Count 3.66 L 4.35-5.85 10^6/uL Hemoglobin 11.6 L 13.3-17.7 G/DL Hematocrit 34 L 40-54 % Mean Corpuscular Volume 93 80-99 FL Mean Corpuscular Hemoglobin 32 25-34 PG Mean Corpuscular Hemoglobin Concent 34 32-36 G/DL Red Cell Distribution Width 14.3 10.0-14.5 % Platelet Count 137 130-400 10^3/uL Mean Platelet Volume 11.3 H 7.4-10.4 FL Neutrophils (%) (Auto) 79 H 42-75 % Lymphocytes (%) (Auto) 14 12-44 % Monocytes (%) (Auto) 4 0-12 % Eosinophils (%) (Auto) 3 0-10 % Basophils (%) (Auto) 0 0-10 % Neutrophils # (Auto) 14.8 H 1.8-7.8 X 10^3 Lymphocytes # (Auto) 2.6 1.0-4.0 X 10^3 Monocytes # (Auto) 0.8 0.0-1.0 X 10^3 Eosinophils # (Auto) 0.6 H 0.0-0.3 10^3/uL Basophils # (Auto) 0.0 0.0-0.1 10^3/uL Neutrophils % (Manual) 68 % Lymphocytes % (Manual) 14 % Monocytes % (Manual) 1 % Eosinophils % (Manual) 2 % Basophils % (Manual) 0 % Band Neutrophils 13 % Reactive Lymphocytes 2 % Anisocytosis SLIGHT Prothrombin Time 14.6 12.2-14.7 SEC INR Comment 1.1 0.8-1.4 Activated Partial Thromboplast Time 41 H 24-35 SEC Sodium Level 139 135-145 MMOL/L Potassium Level 4.2 3.6-5.0 MMOL/L Chloride Level 108 H 98-107 MMOL/L Carbon Dioxide Level 22 21-32 MMOL/L Anion Gap 9 5-14 MMOL/L Blood Urea Nitrogen 24 H 7-18 MG/DL Creatinine 2.33 H 0.60-1.30 MG/DL Estimat Glomerular Filtration Rate 29 BUN/Creatinine Ratio 10 Glucose Level 111 H 70-105 MG/DL Calcium Level 8.1 L 8.5-10.1 MG/DL Total Bilirubin 1.0 0.1-1.0 MG/DL Aspartate Amino Transf (AST/SGOT) 72 H 5-34 U/L Alanine Aminotransferase (ALT/SGPT) 49 0-55 U/L Alkaline Phosphatase 130 40-136 U/L Ammonia 93 H 11-32 UMOL/L B-Type Natriuretic Peptide 208.7 H <100.0 PG/ML Total Protein 6.5 6.4-8.2 GM/DL Albumin 2.8 L 3.2-4.5 GM/DL Salicylates Level < 5.0 L 5.0-20.0 MG/DL Troponin I < 0.30 <0.30 NG/ML Blood Gas Puncture Site L RAD Blood Gas Patient Temperature 97.6 Arterial Blood pH 7.33 *L 7.37-7.43 Arterial Blood Partial Pressure CO2 46 H 35-45 MMHG Arterial Blood Partial Pressure O2 114 H 79-93 MMHG Arterial Blood HCO3 24 23-27 MMOL/L Arterial Blood Total CO2 25.3 21.0-31.0 MMOL/L Arterial Blood Oxygen Saturation 97 94-100 % Arterial Blood Base Excess -1.3 -2.5-2.5 MMOL/L Rigo Test YES-POS Blood Gas Ventilator Setting NO Blood Gas Inspired Oxygen 15L Lactic Acid Level 1.13 0.50-2.00 MMOL/L My Orders Orders - HELGA COREAS Continuous Ekg Monitoring (03/28/17 23:49) Ekg Tracing (03/28/17 23:49) Lactic Acid Analyzer (03/28/17 23:49) Blood Culture (03/28/17 23:49) Sputum Culture (03/28/17 23:49) Ua Culture If Indicated (03/28/17 23:49) O2 (03/28/17 23:49) Saline Lock/Iv-Start (03/28/17 23:49) Troponin I (03/28/17 23:49) Vital Signs Adult Sepsis Patie Q1HR (03/28/17 23:49) Remove Rings In Anticipation O (03/28/17 23:49) Influenza A And B Antigens (03/28/17 23:49) Ct Head Wo (03/29/17 00:01) Ct Chest/Abdomen/Pelvis Wo (03/29/17 00:01) Albuterol/Ipra Inhalation Soln (Duoneb I (03/28/17 23:56) Vancomycin Injection (Vancomycin Injecti (03/29/17 01:00) Ns Iv 500 Ml (Sodium Chloride 0.9%) (03/29/17 01:14) Medications Given in ED Current Medications Medications Dose Ordered Sig/Lindsay Route Start Time Stop Time Status Last Admin Dose Admin Albuterol/ Ipratropium 3 ml STK-MED ONCE .ROUTE 03/28/17 23:29 03/28/17 23:37 DC 03/29/17 00:00 3 ML Sodium Chloride 500 ml @ 0 mls/hr Q0M ONCE IV 03/29/17 01:14 03/29/17 01:16 DC 03/29/17 01:32 500 MLS/HR Vancomycin HCl 1000 mg/Sodium Chloride 250 ml @ 250 mls/hr ONCE ONCE IV 03/29/17 01:00 03/29/17 01:59 DC 03/29/17 01:32 250 MLS/HR Vital Signs/I&O Vital Sign - Last 12Hours 03/28/17 03/28/17 03/29/17 23:38 23:53 00:29 Temp 97.6 Pulse 49 Resp 21 B/P (MAP) 159/80 Pulse Ox 96 92 94 O2 Delivery Non Rebreather OxyMask OxyMask O2 Flow Rate 15.00 6.00 7.00 FiO2 92 Progress Note : Time: 01:12 Progress Note Patient's clinical presentation is that of one who is dry without any edema. His chest x-ray shows some patchiness in the CT also shows groundglass appearance which in this case is probably more consistent with pneumonitis if he 's been choking on food and pills all day. We'll go ahead and treat him with antibiotics given his 18,000 white count and give him a little fluids cautiously given the elevated BNP. His initial Rick Coma Scale was 11 however this improved to 14 with the administration of some oxygen and breathing treatments. We held off intubating him to protect his airway as he was improving and his was insistent that intubating him was about what she him desired. ECG Initial ECG Impression Date: Mar 28, 2017 Initial ECG Impression Time: 23:45 Initial ECG Rate: 49 Initial ECG Rhythm: S.Chano Initial ECG Intervals: Normal Initial ECG Impression: Nonspecific Changes, Sinus Bradycardia Initial ECG Comparisson: No Previous ECG Available Comment There are sinus P waves present. There is no ST-T wave elevation or depression. Diagnostic Imaging Diagonstic Imaging: Xray Plain Films/CT/US/NM/MRI: chest Comments No obvious infiltrates or acute cardiopulmonary processes noted. Reviewed: Reviewed by Me Diagonstic Imaging: CT Plain Films/CT/US/NM/MRI: chest, abdomen, pelvis, head Comments Negative head. Groundglass appearance of chest consistent with pneumonitis versus pneumonia. Reviewed: Reviewed [place] Hawk Study, Reviewed by Me Departure Communication (Admissions) Time/Spoke to Admitting Phy: 01:[address] Delgado about the patient's case, clinical condition, imaging, laboratory findings and treatment plan and is okay with vancomycin and cefepime and will see the patient in the morning. Impression Impression: Primary Impression: Pneumonia Qualified Codes: J18.9 - Pneumonia, unspecified organism Additional Impressions: Pneumonitis Sepsis Qualified Codes: A41.9 - Sepsis, unspecified organism Encephalopathy acute Hyperammonemia Disposition: HOME, SELF-CARE Condition: Stable Admissions Decision to Admit Reason: Admit from ER (General) Decision to Admit/Date: Mar 29, 2017 Time/Decision to Admit Time: 01:30 Departure-Patient Inst. Referrals: TEREZA JAVIER MD (PCP/Family) Primary Care Physician Copy Copies To 1: LAZRAUS EVERETT TITUS J Mar 28, 2017 23:56
[2017-03-28 23:58] LABS: ABG BASE EXCESS -1.3 MMOL/L (-2.5-2.5); ABG HCO3 24 MMOL/L (23-27); ABG OXYGEN SATURATION 97 % (94-100); ABG PCO2 46 MMHG (35-45); ABG PO2 114 MMHG (79-93); ABG TCO2 25.3 MMOL/L (21.0-31.0)
[2017-03-29] VITALS (22 sets, daily range): BP systolic 73–170; BP diastolic 41–79
[2017-03-29] LABS: INR 1.1 (0.8-1.4); PROTHROMBIN TIME PATIENT 14.6 SEC (12.2-14.7)
[2017-03-29 00:01] LABS: BAND NEUTROPHILS 13 %; BASOPHILS % (MANUAL) 0 %; EOSINOPHILS % (MANUAL) 2 %; LYMPHOCYTES % (MANUAL) 14 %; NEUTROPHILS % (MANUAL) 68 %
[2017-03-29 00:02] LABS: ANISOCYTOSIS SLIGHT; REACTIVE LYMPHOCYTES 2 %
[2017-03-29 00:04] LABS: ALLENS TEST YES-POS; PATIENT TEMP 97.6
[2017-03-29 00:05] LABS: ABG PH 7.33 (7.37-7.43)
[2017-03-29 00:27] LABS: ALANINE AMINOTRANSFERASE 49 U/L (0-55); ALBUMIN 2.8 GM/DL (3.2-4.5); AMMONIA 93 UMOL/L (11-32); ANION GAP 9 MMOL/L (5-14); ASPARTATE AMINO TRANSFERASE 72 U/L (5-34); BLOOD UREA NITROGEN 24 MG/DL (7-18); BUN/CREATININE RATIO 10; CALCIUM 8.1 MG/DL (8.5-10.1); CARBON DIOXIDE 22 MMOL/L (21-32); CHLORIDE 108 MMOL/L (98-107); CREATININE SERUM 2.33 MG/DL (0.60-1.30); GFR ESTIMATED 29; GLUCOSE 111 MG/DL (70-105); POTASSIUM 4.2 MMOL/L (3.6-5.0); SALICYLATE < 5.0 MG/DL (5.0-20.0); SODIUM 139 MMOL/L (135-145); TOTAL PROTEIN 6.5 GM/DL (6.4-8.2)
[2017-03-29] MEDS ORDERED: VANCOMYCIN INJECTION 1,000 MG in NS (IVPB) 250 ML IV ONE (01:00)
[2017-03-29] MEDS ORDERED: NS IV 500 ML 500 ML IV ONE (01:14)
[2017-03-29] MEDS ORDERED: RT-ALBUTEROL/IPRATROPIUM 3 ML (DUONEB) VIAL INH PRN (03:15)
[2017-03-29] MEDS ORDERED: ONDANSETRON 4 MG/2 ML (SDV) Z0FRAN IV PRN (03:15)
[2017-03-29] MEDS ORDERED: IBUPROFEN TABLET 200 MG TAB PO PRN (03:15)
[2017-03-29] MEDS ORDERED: NS IV SCH (03:15)
[2017-03-29] MEDS ORDERED: CEFEPIME IV SCH (03:15)
[2017-03-29] MEDS ORDERED: NS (IVPB) 250 ML IV ONE (03:45)
[2017-03-29 04:59] LABS: BASOPHILS % (AUTO) 0 % (0-10); EOSINOPHILS # (AUTO) 0.6 10^3/uL (0.0-0.3); EOSINOPHILS % (AUTO) 5 % (0-10); LYMPHOCYTES # (AUTO) 1.2 X 10^3 (1.0-4.0); LYMPHOCYTES % (AUTO) 9 % (12-44); MEAN CORPUSCULAR HEMOGLOBIN 31 PG (25-34); MEAN CORPUSCULAR HGB CONC 34 G/DL (32-36); MEAN CORPUSCULAR VOLUME 92 FL (80-99); MEAN PLATELET VOLUME 11.9 FL (7.4-10.4); MONOCYTES # (AUTO) 1.2 X 10^3 (0.0-1.0); MONOCYTES % (AUTO) 9 % (0-12); NEUTROPHILS # (AUTO) 10.4 X 10^3 (1.8-7.8); NEUTROPHILS % (AUTO) 78 % (42-75); PLATELET COUNT 105 10^3/uL (130-400); RED BLOOD COUNT 3.53 10^6/uL (4.35-5.85); RED CELL DISTRIBUTION WIDTH 14.1 % (10.0-14.5); WHITE BLOOD COUNT 13.4 10^3/uL (4.3-11.0)
[2017-03-29 05:27] LABS: CALCIUM 7.6 MG/DL (8.5-10.1); CREATININE SERUM 2.03 MG/DL (0.60-1.30); MAGNESIUM 1.4 MG/DL (1.8-2.4); PHOSPHORUS 2.4 MG/DL (2.3-4.7); POTASSIUM 4.2 MMOL/L (3.6-5.0)
--- NOTE | 2017-03-29 06:21 | Diagnostic Imaging Report ---
PROCEDURE: CT head without contrast. TECHNIQUE: Multiple contiguous axial images were obtained through the brain without the use of intravenous contrast. INDICATION: Dyspnea, dysphagia and liver cancer. CT HEAD: Multiple contiguous axial CT images of the head were obtained. FINDINGS: Ventricles and sulci are within normal limits for size. There is no intracranial hemorrhage identified. There is no abnormal mass effect or shift of midline structures. IMPRESSION: Unremarkable CT of the head. Dictated by: Dictated on workstation # [id number]
--- NOTE | 2017-03-29 06:31 | Diagnostic Imaging Report ---
PROCEDURE: CT chest, abdomen, and pelvis without contrast. TECHNIQUE: Multiple contiguous axial images were obtained through the chest, abdomen, and pelvis without the use of intravenous contrast. INDICATION: Dyspnea in patient with liver transplant and liver cancer There is diffuse centrilobular emphysema with development of patchy groundglass opacities throughout the middle lobe, lingula and both lower lobes. No focal consolidation is identified. There is no significant pleural or pericardial fluid. Prominent lymph nodes are again seen within the left axilla measuring up to 1.5 cm long axis. Mildly prominent mediastinal lymph nodes are again noted with the largest precarinal lymph node measuring up to 1.3 cm long axis. Evaluation of the mediastinum and sonia somewhat limited without intravenous contrast. IMPRESSION: Groundglass opacities in the lower half of the lungs, bilaterally. This may represent edema or pneumonitis. Atypical pneumonia could have this appearance. Mild prominent thoracic lymph nodes are not significantly changed when compared to the previous study. 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 The portal vein and intrahepatic branches are prominent with heterogeneous density throughout the liver parenchyma. A focal lesion is not seen on the noncontrast study. There is no evidence of pancreatic, splenic or adrenal gland lesion. Evaluation of the kidneys is limited without intravenous contrast, however, no stone, mass or hydronephrosis is noted. There is no evidence of free fluid in the abdomen or pelvis. No pathologic adenopathy is identified. IMPRESSION: Heterogeneous appearance of transplanted liver. This is nonspecific on the unenhanced study. Consideration could be given to ultrasound assessment if indicated. Otherwise, there is no evidence of acute abnormality. In particular, there is no significant splenomegaly or free fluid. Dictated by: Dictated on workstation # [id number]
[2017-03-29] MEDS: RT-ALBUTEROL/IPRATROPIUM 3 ML (DUONEB) VIAL INH SCH ×4 (06:36→18:56)
--- NOTE | 2017-03-29 07:59 | Diagnostic Imaging Report ---
Portable supine AP chest at 1129 hours. INDICATION: Respiratory distress. FINDINGS: The heart size is within normal limits and stable when compared to 07/23/15. In the interval since the prior study, alveolar/interstitial pulmonary infiltrates have developed in both lung bases. Most likely these are related to pneumonia/atelectasis. The upper lungs are relatively clear. There is no significant pleural effusion identified. The mediastinum is not widened. The osseous structures are intact. The right-sided central venous catheter seen previously is again evident and no different. IMPRESSION: 1. The appearance of the chest has worsened since the prior study as bibasilar pneumonia/atelectasis has developed. There is no acute cardiopulmonary abnormality noted otherwise. 2. Reportedly, CT of the chest is pending for further evaluation. Dictated by: Dictated on workstation # [id number]
--- NOTE | 2017-03-29 08:19 | Diagnostic Imaging Report ---
INDICATION: Dyspnea 0502 hrs. Since the examination of one day earlier, there has been an increase in airspace disease in the lung bases, greater on the right. There is no evidence of pneumothorax. Right anterior chest wall port is in stable position. IMPRESSION: Increasing basilar airspace disease, greater on the right. This could be due to edema or developing pneumonia. Radiographic followup would be of use. Dictated by: Dictated on workstation # [id number]
[2017-03-29] MEDS: LACTULOSE SYRUP 10GM/15ML (ENULOSE) 30ML UDC PO SCH ×2 (08:40→21:25)
[2017-03-29] MEDS: RIFAXIMIN 550 MG TABLET (XIFAXAN) PO SCH ×2 (08:40→21:26)
[2017-03-29] MEDS ORDERED: NADO40TA PO (08:54)
[2017-03-29] MEDS ORDERED: METH-288 PO (08:54)
[2017-03-29] MEDS ORDERED: LACT10SO PO (08:54)
[2017-03-29] MEDS ORDERED: AMLO5TAB2 PO (08:54)
[2017-03-29] MEDS ORDERED: SENN-1 PO (08:54)
[2017-03-29] MEDS ORDERED: TACR0.5C PO (08:54)
[2017-03-29] MEDS ORDERED: RIFA550T PO (08:54)
[2017-03-29] MEDS ORDERED: CHOL20003 PO (08:54)
[2017-03-29] MEDS ORDERED: MAGN500T PO (08:54)
[2017-03-29] MEDS ORDERED: METH10TA3 PO (09:06)
--- NOTE | 2017-03-29 11:41 | History & Physicial (CHS) ---
FRANCISCO BOSWELL MED STUDENT 03/29/17 1141: HPI History of Present Illness: Harshal is a 61-year old male who presented to the [facility] ED last evening () with the chief complaints of difficulty breathing, SOB, and lethargy. Patient was brought in by ambulance after police called EMS at the request of his ; who had initially driven him to the police station. 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 Buck). After returning home from blood draw , patient "didn't feel well." After taking his dog for a walk, patient ate a corn dog and reddy burrito, and soon "began to have shallow breaths." Patient seemed to have a "congested chest" and was emitting "gurgling noises." Patient' s assisted patient as he took his Symbicort. Patient had cereal for dinner and soon thereafter began "coughing it up into the toilet." Soon after going to bed, patient sat upright and said "[he] couldn't breathe" and started running around "as if in a panic attack." Patient's started to drive patient to hospital, but stopped at the police station on the way because patient stated he was, "about to pass out." Patient's anxiety continued at police station as he "ran around saying he couldn't get air." Upon arrival at ED, patient had an elevated ammonia level of 98. Patient has been "coma-like" in the past whenever his ammonia levels get to high. Patient will then take his Laculose to address this. Dr. Buck was contacted last night regarding the evening's developments. Patient sees Dr. Phipps in [place] for his kidney care. Patient had contact over the past couple of weeks with his [id number], who has had "flu-like symptoms." Dr. Chance is patient's PCP at [facility], but he "has only seen patient twice" all time. Source: spouse (Outside of orientation questions, patient's Ramon provided history) Date seen by provider: Mar 29, 2017 Time Seen by Provider: 08:15 Attending Physician Ramírez Mcneal MD PCP Eric Chance MD Consult Date of Admission Mar 29, 2017 at 01:20 Home Medications Home Medications Reviewed patient Home Medication Reconciliation Form Allergies Coded Allergies: Heparin Analogues (Verified Allergy, Mild, 07/22/15) codeine (Verified Allergy, Unknown, TAKES OXYCODONE AT HOME, 07/22/15) fentanyl (Verified Allergy, Unknown, 07/22/15) sumatriptan (Verified Allergy, Unknown, 07/22/15) zolpidem (Verified Allergy, Unknown, 07/22/15) Uncoded Allergies: NSADS (Allergy, Unknown, 04/10/14) CONTRAST DYE/RADIOLOGY DYE (Adverse Reaction, Unknown, 04/10/14) DUE TO KIDNEY FUNCTION [id number]-Uitjrl Hx Patient Social History Marrital Status: Alcohol Use: Past History (Patient gave up drinking alcohol 15-16 years ago in advanve of his liver transplant 12.5 years ago) Recreational Drug Use: No Smoking Status: Current Everyday Smoker (Patient has smoked cigarettes for the past 47 years) Type Used: Cigarettes 2nd Hand Smoke Exposure: Yes Recent Foreign Travel: No Contact w/other who traveled: No Recent Hopitalizations: No Recent Infectious Disease Expo: No Physical Abuse Screen: No Sexual Abuse: No Immunizations Up To Date Tetanus Booster (TDap): Less than 5yrs Date of Pneumonia Vaccine: May 09, 2015 Date of Influenza Vaccine: Jul 22, 2015 Past Medical History Centrolobar emphysema, hepatic encephalopathy, varices, HTN, heart murmur, benign lung mass (1 year ago), liver transplant (September 2004) and liver rejection (2009), and port placement (5 or 6 years ago) Family Medical History Family History: Not obtainable due to adoption Review of Systems (CHC) Constitutional: other (Patient feels "hot" at times, but hands are "cold") Respiratory: short of breath (recent shallow breathing) Gastrointestinal: constipation (Constipated when he doesn't take laculose) Physical Exam-([facility]) Physical Exam Vital Signs VS - Last 72 Hours, by Label 03/28/17 03/28/17 03/29/17 03/29/17 23:38 23:53 00:29 01:28 Temp 97.6 97.6 Pulse 49 51 Resp 21 13 B/P (MAP) 159/80 Pulse Ox 96 92 94 95 O2 Delivery Non Rebreather OxyMask OxyMask OxyMask O2 Flow Rate 15.00 6.00 7.00 6.00 FiO2 92 03/29/17 03/29/17 03/29/17 03/29/17 01:35 01:40 02:00 02:55 Temp 100.1 Pulse 56 55 56 Resp 22 21 B/P (MAP) 110/74 170/71 Pulse Ox 93 93 93 O2 Delivery OxyMask OxyMask OxyMask O2 Flow Rate 6.00 6.00 6.00 03/29/17 03/29/17 03/29/17 03/29/17 03:00 03:44 03:45 04:00 Temp 100.9 Pulse 55 55 Resp 16 17 B/P (MAP) 147/79 141/74 Pulse Ox 96 94 O2 Delivery OxyMask OxyMask OxyMask O2 Flow Rate 6.00 4.00 4.00 03/29/17 03/29/17 03/29/17 03/29/17 04:00 05:00 06:00 06:36 Pulse 60 58 Resp 20 16 B/P (MAP) 147/79 121/65 Pulse Ox 97 93 95 96 O2 Delivery OxyMask OxyMask OxyMask OxyMask O2 Flow Rate 4.00 4.00 4.00 4.00 03/29/17 03/29/17 03/29/17 03/29/17 07:00 07:07 07:37 08:00 Temp 101.6 101.6 100.6 Pulse 63 03/29/17 03/29/17 08:00 10:15 Pulse Ox 97 93 O2 Delivery OxyMask OxyMask O2 Flow Rate 4.00 4.00 Capillary Refill : Less Than 3 Seconds General Appearance: other (Patient lethargic and oriented x2 (person and place) ) Respiratory: decreased breath sounds Cardiovascular: bradycardia (HR since admission has been in the 50's for bpm) Neurologic/Psychiatric: No oriented x 3 (Patient oriented x2 (person and place , did not know date and time)) Assessment/Plan Assessment/Plan Admission Dx 1. Aspiration Pneumonia 2. Hepatic encephalopathy 3. Liver transplant (09/2004) 4. Liver rejection (2009) 5. Centrolobar emphysema 6. HTN Plan 1. Continue vancomycin and cefepime to treat aspiration PNA. Stop vancomycin after 24-48 if no bacteremia present on most recent blood draw. 2. Monitor kidney function and make sure his kidney medications are dosed appropriately. 3. NPO and perform a bedside swallow test to ascertain patient's current swallow capability. 4. Hold all of patient's sedating medications until patient is more awake. 5. Hold patient's methylphenidate. Diagnosis/Problems: Clinical Quality Measures DVT/VTE Risk/Contraindication: Risk Factor Score Per Nursin RFS Level Per Nursing on Admit: 3=High RAMÍREZ MCNEAL MD 03/29/17 1843: HPI History of Present Illness: Time Seen by Provider: 09:00 Home Medications Allergies Coded Allergies: Heparin Analogues (Verified Allergy, Mild, 07/22/15) codeine (Verified Allergy, Unknown, TAKES OXYCODONE AT HOME, 07/22/15) fentanyl (Verified Allergy, Unknown, 07/22/15) sumatriptan (Verified Allergy, Unknown, 07/22/15) zolpidem (Verified Allergy, Unknown, 07/22/15) Uncoded Allergies: NSADS (Allergy, Unknown, 04/10/14) CONTRAST DYE/RADIOLOGY DYE (Adverse Reaction, Unknown, 04/10/14) DUE TO KIDNEY FUNCTION KWK-Kldksw-Rpeste Hx Past Medical History PMHx: Hep C s/p liver transplant with chronic rejection Chronic kidney disease Chronic pain PSurgHx: Liver transplant Lung biopsy Family Medical History Family History: Not obtainable due to adoption Reviewed Test Results Reviewed Test Results Lab Laboratory Tests Test 03/28/17 11:42 03/28/17 23:42 03/28/17 23:49 03/28/17 23:54 Range/Units White Blood Count 18.8 H 4.3-11.0 10^3/uL Red Blood Count 3.66 L 4.35-5.85 10^6/uL Hemoglobin 11.6 L 13.3-17.7 G/DL Hematocrit 34 L 40-54 % Mean Corpuscular Volume 93 80-99 FL Mean Corpuscular Hemoglobin 32 25-34 PG Mean Corpuscular Hemoglobin Concent 34 32-36 G/DL Red Cell Distribution Width 14.3 10.0-14.5 % Platelet Count 137 130-400 10^3/uL Mean Platelet Volume 11.3 H 7.4-10.4 FL Neutrophils (%) (Auto) 79 H 42-75 % Lymphocytes (%) (Auto) 14 12-44 % Monocytes (%) (Auto) 4 0-12 % Eosinophils (%) (Auto) 3 0-10 % Basophils (%) (Auto) 0 0-10 % Neutrophils # (Auto) 14.8 H 1.8-7.8 X 10^3 Lymphocytes # (Auto) 2.6 1.0-4.0 X 10^3 Monocytes # (Auto) 0.8 0.0-1.0 X 10^3 Eosinophils # (Auto) 0.6 H 0.0-0.3 10^3/uL Basophils # (Auto) 0.0 0.0-0.1 10^3/uL Neutrophils % (Manual) 68 % Lymphocytes % (Manual) 14 % Monocytes % (Manual) 1 % Eosinophils % (Manual) 2 % Basophils % (Manual) 0 % Band Neutrophils 13 % Reactive Lymphocytes 2 % Anisocytosis SLIGHT Prothrombin Time 14.6 12.2-14.7 SEC INR Comment 1.1 0.8-1.4 Activated Partial Thromboplast Time 41 H 24-35 SEC Sodium Level 139 135-145 MMOL/L Potassium Level 4.2 3.6-5.0 MMOL/L Chloride Level 108 H 98-107 MMOL/L Carbon Dioxide Level 22 21-32 MMOL/L Anion Gap 9 5-14 MMOL/L Blood Urea Nitrogen 24 H 7-18 MG/DL Creatinine 2.33 H 0.60-1.30 MG/DL Estimat Glomerular Filtration Rate 29 BUN/Creatinine Ratio 10 Glucose Level 111 H 70-105 MG/DL Calcium Level 8.1 L 8.5-10.1 MG/DL Total Bilirubin 1.0 0.1-1.0 MG/DL Aspartate Amino Transf (AST/SGOT) 72 H 5-34 U/L Alanine Aminotransferase (ALT/SGPT) 49 0-55 U/L Alkaline Phosphatase 130 40-136 U/L Ammonia 93 H 11-32 UMOL/L B-Type Natriuretic Peptide 208.7 H <100.0 PG/ML Total Protein 6.5 6.4-8.2 GM/DL Albumin 2.8 L 3.2-4.5 GM/DL Salicylates Level < 5.0 L 5.0-20.0 MG/DL Troponin I < 0.30 <0.30 NG/ML Blood Gas Puncture Site L RAD Blood Gas Patient Temperature 97.6 Arterial Blood pH 7.33 *L 7.37-7.43 Arterial Blood Partial Pressure CO2 46 H 35-45 MMHG Arterial Blood Partial Pressure O2 114 H 79-93 MMHG Arterial Blood HCO3 24 23-27 MMOL/L Arterial Blood Total CO2 25.3 21.0-31.0 MMOL/L Arterial Blood Oxygen Saturation 97 94-100 % Arterial Blood Base Excess -1.3 -2.5-2.5 MMOL/L Rigo Test YES-POS Blood Gas Ventilator Setting NO Blood Gas Inspired Oxygen 15L Lactic Acid Level 1.13 0.50-2.00 MMOL/L Test 03/29/17 04:30 Range/Units White Blood Count 13.4 H 4.3-11.0 10^3/uL Red Blood Count 3.53 L 4.35-5.85 10^6/uL Hemoglobin 11.1 L 13.3-17.7 G/DL Hematocrit 33 L 40-54 % Mean Corpuscular Volume 92 80-99 FL Mean Corpuscular Hemoglobin 31 25-34 PG Mean Corpuscular Hemoglobin Concent 34 32-36 G/DL Red Cell Distribution Width 14.1 10.0-14.5 % Platelet Count 105 L 130-400 10^3/uL Mean Platelet Volume 11.9 H 7.4-10.4 FL Neutrophils (%) (Auto) 78 H 42-75 % Lymphocytes (%) (Auto) 9 L 12-44 % Monocytes (%) (Auto) 9 0-12 % Eosinophils (%) (Auto) 5 0-10 % Basophils (%) (Auto) 0 0-10 % Neutrophils # (Auto) 10.4 H 1.8-7.8 X 10^3 Lymphocytes # (Auto) 1.2 1.0-4.0 X 10^3 Monocytes # (Auto) 1.2 H 0.0-1.0 X 10^3 Eosinophils # (Auto) 0.6 H 0.0-0.3 10^3/uL Basophils # (Auto) 0.0 0.0-0.1 10^3/uL Sodium Level 139 135-145 MMOL/L Potassium Level 4.2 3.6-5.0 MMOL/L Chloride Level 111 H 98-107 MMOL/L Carbon Dioxide Level 21 21-32 MMOL/L Anion Gap 7 5-14 MMOL/L Blood Urea Nitrogen 24 H 7-18 MG/DL Creatinine 2.03 H 0.60-1.30 MG/DL Estimat Glomerular Filtration Rate 34 BUN/Creatinine Ratio 12 Glucose Level 118 H 70-105 MG/DL Calcium Level 7.6 L 8.5-10.1 MG/DL Phosphorus Level 2.4 2.3-4.7 MG/DL Magnesium Level 1.4 L 1.8-2.4 MG/DL Radiology Head CT 03/28: Unremarkable CAP CT 03/28: IMPRESSION: Heterogeneous appearance of transplanted liver. This is nonspecific on the unenhanced study. Consideration could be given to ultrasound assessment if indicated. Otherwise, there is no evidence of acute abnormality. In particular, there is no significant splenomegaly or free fluid. CXR 03/28: IMPRESSION: 1. The appearance of the chest has worsened since the prior study as bibasilar pneumonia/atelectasis has developed. There is no acute cardiopulmonary abnormality noted otherwise. Physical Exam-([facility]) Physical Exam Vital Signs VS - Last 72 Hours, by Label 03/28/17 03/28/17 03/29/17 03/29/17 23:38 23:53 00:29 01:28 Temp 97.6 97.6 Pulse 49 51 Resp 21 13 B/P (MAP) 159/80 Pulse Ox 96 92 94 95 O2 Delivery Non Rebreather OxyMask OxyMask OxyMask O2 Flow Rate 15.00 6.00 7.00 6.00 FiO2 92 03/29/17 03/29/17 03/29/17 03/29/17 01:35 01:40 02:00 02:55 Temp 100.1 Pulse 56 55 56 Resp 21 B/P (MAP) 110/74 170/71 Pulse Ox 93 93 93 O2 Delivery OxyMask OxyMask OxyMask O2 Flow Rate 6.00 6.00 6.00 03/29/17 03/29/17 03/29/17 03/29/17 03:00 03:44 03:45 04:00 Temp 100.9 Pulse 55 55 Resp 17 B/P (MAP) 147/79 141/74 Pulse Ox 96 94 O2 Delivery OxyMask OxyMask OxyMask O2 Flow Rate 6.00 4.00 4.00 03/29/17 03/29/17 03/29/17 03/29/17 04:00 05:00 06:00 06:36 Pulse 60 58 Resp 20 16 B/P (MAP) 147/79 121/65 Pulse Ox 97 93 95 96 O2 Delivery OxyMask OxyMask OxyMask OxyMask O2 Flow Rate 4.00 4.00 4.00 4.00 03/29/17 03/29/17 03/29/17 03/29/17 07:00 07:00 07:07 07:37 Temp 101.6 101.6 Pulse 63 56 Resp 16 B/P (MAP) 117/57 Pulse Ox 98 O2 Delivery OxyMask O2 Flow Rate 4.00 03/29/17 03/29/17 03/29/17 03/29/17 08:00 08:00 08:00 09:00 Temp 100.6 Pulse 54 52 Resp 14 13 B/P (MAP) 133/79 95/55 Pulse Ox 97 98 95 O2 Delivery OxyMask OxyMask OxyMask O2 Flow Rate 4.00 4.00 4.00 03/29/17 03/29/17 03/29/17 03/29/17 10:00 10:15 11:00 11:49 Pulse 49 49 Resp 11 10 B/P (MAP) 89/53 82/47 Pulse Ox 90 93 91 90 O2 Delivery OxyMask OxyMask OxyMask OxyMask O2 Flow Rate 4.00 4.00 4.00 3.00 03/29/17 03/29/17 03/29/17 03/29/17 12:00 12:00 13:00 13:00 Pulse 49 49 48 Resp 14 18 B/P (MAP) 94/51 73/42 Pulse Ox 97 94 93 O2 Delivery OxyMask OxyMask OxyMask O2 Flow Rate 4.00 4.00 4.00 03/29/17 03/29/17 03/29/17 03/29/17 14:00 14:09 15:00 16:00 Pulse 46 44 47 Resp 12 10 16 B/P (MAP) 79/53 83/50 91/62 Pulse Ox 90 93 97 97 O2 Delivery OxyMask OxyMask OxyMask OxyMask O2 Flow Rate 4.00 4.00 4.00 4.00 03/29/17 03/29/17 17:00 18:00 Pulse 48 47 B/P (MAP) 74/41 90/47 Pulse Ox 97 100 O2 Delivery OxyMask OxyMask O2 Flow Rate 4.00 4.00 General Appearance: other (Patient lethargic and oriented x2 (person and place) ) Cardiovascular: no murmur, bradycardia Gastrointestinal: normal bowel sounds, non tender, soft Extremities: No pedal edema Neurologic/Psychiatric: other (lethargic, answers direct questions) Skin: warm/dry Supervisory-Addendum Brief Supervisory Addendum Patient seen and examined by me, history confirmed by me with patient and on 03/29/2017 am with [facility]3 Michael Sheldon. See below for my changes/additions to plans. Aspiration pneumonia with sepsis- febrile with leukocytosis, normal lactic acid and BP in the am at time of rounds, currently requiring 4 lpm by oxymask, no home supplemental oxygen requirement -cefepime, vancomycin -RT, resume home inhalers Received call about 3 pm with new hypotension- 1 liter bolus ordered given his CKD and chronic liver disease with plan to re-evaluate after first liter and likely order more fluid if tolerating. BP improved with bolus but began to drop again, at about 6 pm blood pressure less than 80/50, now suspect severe sepsis, additional 1.5 liter bolus ordered (to achieve total of 2.5 liters which is 30 mls/kg). Due to his severe sepsis with underlying chronic liver transplant rejection and CKD followed at [facility], discussed with Dr. Watson, technical instructor at [facility] who accepted in transfer. However, they are on med/surg diversion and only accepting ICU transfers, so are unsure as to when bed will be available , he will be transferred as soon as possible. CKD- relatively new diagnosis apparently based on labs with new elevation 11/2016 , following with Dr. Phipps in [place] -Electrolytes stable, monitor electrolytes and fluid status carefully Hepatic encephalopathy- ammonia 96 on admission, lactulose restarted (had not been taking at home for period, but had restarted in last day or so). CT head unremarkable. -Was recently given diazepam, will hold for now due to lethargy Chronic pain- on large doses of oxycodone/oxycontin at home, holding for now due to lethargy Bradycardia- unclear etiology, EKG and Cardiology consult FRANCISCO BOSWELL MED STUDENT Mar 29, 2017 11:41 RAMÍREZ MCNEAL MD Mar 29, 2017 18:43
[2017-03-29] MEDS: RT-ADVAIR HFA 115/21 MCG PER PUFF IH SCH ×2 (11:48→18:56)
[2017-03-29] MEDS ORDERED: NS IV 1000 ML 1,000 ML IV SCH ×4 (15:00→19:30)
[2017-03-29] MEDS ORDERED: PATIENT MAY USE OWN MEDS, ALL MC SCH (16:45)
[2017-03-29 20:43] LABS: BASOPHILS % (AUTO) 0 % (0-10); EOSINOPHILS # (AUTO) 0.8 10^3/uL (0.0-0.3); EOSINOPHILS % (AUTO) 5 % (0-10); LYMPHOCYTES # (AUTO) 2.4 X 10^3 (1.0-4.0); LYMPHOCYTES % (AUTO) 16 % (12-44); MEAN CORPUSCULAR HEMOGLOBIN 32 PG (25-34); MEAN CORPUSCULAR HGB CONC 33 G/DL (32-36); MEAN CORPUSCULAR VOLUME 94 FL (80-99); MEAN PLATELET VOLUME 11.8 FL (7.4-10.4); MONOCYTES # (AUTO) 1.7 X 10^3 (0.0-1.0); MONOCYTES % (AUTO) 11 % (0-12); NEUTROPHILS % (AUTO) 67 % (42-75); PLATELET COUNT 82 10^3/uL (130-400); RED BLOOD COUNT 3.02 10^6/uL (4.35-5.85); RED CELL DISTRIBUTION WIDTH 14.3 % (10.0-14.5); WHITE BLOOD COUNT 14.9 10^3/uL (4.3-11.0)
[2017-03-29] MEDS ORDERED: TACROLIMUS 0.5 MG (PROGRAF) CAP NON-FORMULARY PO SCH (21:00)
[2017-03-29] MEDS ORDERED: VITAMIN D3 1,000 UNITS (CHOLECALCIFEROL) TABLET PO SCH (21:00)
[2017-03-29] MEDS ORDERED: MAGNESIUM OXIDE (MAG-OX)400 MG TAB PO SCH (21:00)
[2017-03-29] MEDS ORDERED: NADOLOL 40 MG PO SCH (21:00)
[2017-03-29 21:09] LABS: ALANINE AMINOTRANSFERASE 38 U/L (0-55); ALBUMIN 2.3 GM/DL (3.2-4.5); AMMONIA 41 UMOL/L (11-32); ANION GAP 6 MMOL/L (5-14); ASPARTATE AMINO TRANSFERASE 50 U/L (5-34); BILIRUBIN,TOTAL 0.9 MG/DL (0.1-1.0); BLOOD UREA NITROGEN 28 MG/DL (7-18); BUN/CREATININE RATIO 13; CARBON DIOXIDE 20 MMOL/L (21-32); CHLORIDE 112 MMOL/L (98-107); CREATININE SERUM 2.09 MG/DL (0.60-1.30); GFR ESTIMATED 33; GLUCOSE 89 MG/DL (70-105); POTASSIUM 3.9 MMOL/L (3.6-5.0); SODIUM 138 MMOL/L (135-145); TOTAL PROTEIN 5.4 GM/DL (6.4-8.2)
[2017-03-29 21:29] LABS: THYROID STIMULATING HORMONE 0.64 UIU/ML (0.35-4.94); TROPONIN I < 0.30 NG/ML (<0.30)
[2017-03-30] MEDS ORDERED: VANCOMYCIN 1250 MG/NS 250 ML IVPB IV SCH ×2 (08:00)
[2017-03-30] MEDS ORDERED: CEFEPIME INJECTION 500 MG in NS (IVPB) 50 ML IV SCH (09:00)
--- NOTE | 2017-03-30 14:52 | Discharge Summary ---
Diagnosis/Chief Complaint Date of Admission Mar 29, 2017 at 01:20 Date of Discharge Mar 29, 2017 at 22:02 Admission Diagnosis Admission Diagnosis Aspiration pneumonia with sepsis CKD Hepatic encephalopathy Chronic pain Discharge Diagnosis Aspiration pneumonia with severe sepsis- febrile with leukocytosis, normal lactic acid and BP in the am at time of rounds, currently requiring 4 lpm by oxymask, no home supplemental oxygen requirement -cefepime, vancomycin -RT, resume home inhalers Received call about 3 pm with new hypotension- 1 liter bolus ordered given his CKD and chronic liver disease with plan to re-evaluate after first liter and likely order more fluid if tolerating. BP improved with bolus but began to drop again, at about 6 pm blood pressure less than 80/50, now suspect severe sepsis, additional 1.5 liter bolus ordered (to achieve total of 2.5 liters which is 30 mls/kg). Due to his severe sepsis with underlying chronic liver transplant rejection and CKD followed at [facility], discussed with Dr. Watson, waste minimization technician at [facility] who accepted in transfer. CKD- relatively new diagnosis apparently based on labs with new elevation 11/2016 , following with Dr. Phipps in [place] -Electrolytes stable, monitor electrolytes and fluid status carefully Hepatic encephalopathy- ammonia 96 on admission, lactulose restarted (had not been taking at home for period, but had restarted in last day or so). CT head unremarkable. -Was recently given diazepam, will hold for now due to lethargy Chronic pain- on large doses of oxycodone/oxycontin at home, holding for now due to lethargy Bradycardia- unclear etiology, EKG and Cardiology consult EKG concerning for junctional escape rhythm, patient transferred as noted above. May be related to nadolol which was new medication for him. Chief Complaint/HPI Chief Complaint/HPI Harshal is a 61-year old male who presented to the [facility] ED last evening () with the chief complaints of difficulty breathing, SOB, and lethargy. Patient was brought in by ambulance after police called EMS at the request of his ; who had initially driven him to the police station. Patient came to [facility] earlier in the day yesterday (03/28) for a routine blood draw as required by his real estate legal assistant (Dr. Buck). After returning home from blood draw , patient "didn't feel well." After taking his dog for a walk, patient ate a corn dog and reddy burrito, and soon "began to have shallow breaths." Patient seemed to have a "congested chest" and was emitting "gurgling noises." Patient' s assisted patient as he took his Symbicort. Patient had cereal for dinner and soon thereafter began "coughing it up into the toilet." Soon after going to bed, patient sat upright and said "[he] couldn't breathe" and started running around "as if in a panic attack." Patient's started to drive patient to hospital, but stopped at the police station on the way because patient stated he was, "about to pass out." Patient's anxiety continued at police station as he "ran around saying he couldn't get air." Upon arrival at ED, patient had an elevated ammonia level of 98. Patient has been "coma-like" in the past whenever his ammonia levels get to high. Patient will then take his Laculose to address this. Dr. Buck was contacted last night regarding the evening's developments. Patient sees Dr. Phipps in [place] for his kidney care. Patient had contact over the past couple of weeks with his [id number], who has had "flu-like symptoms." Dr. Javier is patient's PCP at [facility], but he "has only seen patient twice" all time. Discharge Summary-Simple/Stand Consultations Discharge Physical Examination Allergies: Coded Allergies: Heparin Analogues (Verified Allergy, Mild, 07/22/15) codeine (Verified Allergy, Unknown, TAKES OXYCODONE AT HOME, 07/22/15) fentanyl (Verified Allergy, Unknown, 07/22/15) sumatriptan (Verified Allergy, Unknown, 07/22/15) zolpidem (Verified Allergy, Unknown, 07/22/15) Uncoded Allergies: NSADS (Allergy, Unknown, 04/10/14) CONTRAST DYE/RADIOLOGY DYE (Adverse Reaction, Unknown, 04/10/14) DUE TO KIDNEY FUNCTION Vitals & I&Os Vital Sign - Last 12Hours Date Time Temp Pulse Resp B/P (MAP) Pulse Ox O2 Delivery O2 Flow Rate FiO2 03/29/17 21:00 48 97/53 99 OxyMask 3.00 03/29/17 20:00 92 03/29/17 19:00 98.7 03/29/17 16:00 16 General Appearance: Alert, No Acute Distress Psych/Mental Status: Mental Status NL Hospital Course See final discharge diagnosis. Labs Laboratory Tests Test 03/28/17 23:42 03/28/17 23:49 03/28/17 23:54 03/29/17 04:30 Range/Units Troponin I < 0.30 <0.30 NG/ML Blood Gas Puncture Site L RAD Blood Gas Patient Temperature 97.6 Arterial Blood pH 7.33 *L 7.37-7.43 Arterial Blood Partial Pressure CO2 46 H 35-45 MMHG Arterial Blood Partial Pressure O2 114 H 79-93 MMHG Arterial Blood HCO3 24 23-27 MMOL/L Arterial Blood Total CO2 25.3 21.0-31.0 MMOL/L Arterial Blood Oxygen Saturation 97 94-100 % Arterial Blood Base Excess -1.3 -2.5-2.5 MMOL/L Rigo Test YES-POS Blood Gas Ventilator Setting NO Blood Gas Inspired Oxygen 15L Lactic Acid Level 1.13 0.50-2.00 MMOL/L White Blood Count 13.4 H 4.3-11.0 10^3/uL Red Blood Count 3.53 L 4.35-5.85 10^6/uL Hemoglobin 11.1 L 13.3-17.7 G/DL Hematocrit 33 L 40-54 % Mean Corpuscular Volume 92 80-99 FL Mean Corpuscular Hemoglobin 31 25-34 PG Mean Corpuscular Hemoglobin Concent 34 32-36 G/DL Red Cell Distribution Width 14.1 10.0-14.5 % Platelet Count 105 L 130-400 10^3/uL Mean Platelet Volume 11.9 H 7.4-10.4 FL Neutrophils (%) (Auto) 78 H 42-75 % Lymphocytes (%) (Auto) 9 L 12-44 % Monocytes (%) (Auto) 9 0-12 % Eosinophils (%) (Auto) 5 0-10 % Basophils (%) (Auto) 0 0-10 % Neutrophils # (Auto) 10.4 H 1.8-7.8 X 10^3 Lymphocytes # (Auto) 1.2 1.0-4.0 X 10^3 Monocytes # (Auto) 1.2 H 0.0-1.0 X 10^3 Eosinophils # (Auto) 0.6 H 0.0-0.3 10^3/uL Basophils # (Auto) 0.0 0.0-0.1 10^3/uL Sodium Level 139 135-145 MMOL/L Potassium Level 4.2 3.6-5.0 MMOL/L Chloride Level 111 H 98-107 MMOL/L Carbon Dioxide Level 21 21-32 MMOL/L Anion Gap 7 5-14 MMOL/L Blood Urea Nitrogen 24 H 7-18 MG/DL Creatinine 2.03 H 0.60-1.30 MG/DL Estimat Glomerular Filtration Rate 34 BUN/Creatinine Ratio 12 Glucose Level 118 H 70-105 MG/DL Calcium Level 7.6 L 8.5-10.1 MG/DL Phosphorus Level 2.4 2.3-4.7 MG/DL Magnesium Level 1.4 L 1.8-2.4 MG/DL Test 03/29/17 20:35 Range/Units White Blood Count 14.9 H 4.3-11.0 10^3/uL Red Blood Count 3.02 L 4.35-5.85 10^6/uL Hemoglobin 9.5 L 13.3-17.7 G/DL Hematocrit 29 L 40-54 % Mean Corpuscular Volume 94 80-99 FL Mean Corpuscular Hemoglobin 32 25-34 PG Mean Corpuscular Hemoglobin Concent 33 32-36 G/DL Red Cell Distribution Width 14.3 10.0-14.5 % Platelet Count 82 L 130-400 10^3/uL Mean Platelet Volume 11.8 H 7.4-10.4 FL Neutrophils (%) (Auto) 67 42-75 % Lymphocytes (%) (Auto) 16 12-44 % Monocytes (%) (Auto) 11 0-12 % Eosinophils (%) (Auto) 5 0-10 % Basophils (%) (Auto) 0 0-10 % Neutrophils # (Auto) 10.0 H 1.8-7.8 X 10^3 Lymphocytes # (Auto) 2.4 1.0-4.0 X 10^3 Monocytes # (Auto) 1.7 H 0.0-1.0 X 10^3 Eosinophils # (Auto) 0.8 H 0.0-0.3 10^3/uL Basophils # (Auto) 0.0 0.0-0.1 10^3/uL Sodium Level 138 135-145 MMOL/L Potassium Level 3.9 3.6-5.0 MMOL/L Chloride Level 112 H 98-107 MMOL/L Carbon Dioxide Level 20 L 21-32 MMOL/L Anion Gap 6 5-14 MMOL/L Blood Urea Nitrogen 28 H 7-18 MG/DL Creatinine 2.09 H 0.60-1.30 MG/DL Estimat Glomerular Filtration Rate 33 BUN/Creatinine Ratio 13 Glucose Level 89 70-105 MG/DL Lactic Acid Level 1.77 0.50-2.00 MMOL/L Calcium Level 7.0 L 8.5-10.1 MG/DL Total Bilirubin 0.9 0.1-1.0 MG/DL Aspartate Amino Transf (AST/SGOT) 50 H 5-34 U/L Alanine Aminotransferase (ALT/SGPT) 38 0-55 U/L Alkaline Phosphatase 100 40-136 U/L Ammonia 41 H 11-32 UMOL/L Troponin I < 0.30 <0.30 NG/ML Total Protein 5.4 L 6.4-8.2 GM/DL Albumin 2.3 L 3.2-4.5 GM/DL Thyroid Stimulating Hormone (TSH) 0.64 0.35-4.94 UIU/ML Radiology Reviewed Head CT 03/28: Unremarkable CAP CT 03/28: IMPRESSION: Heterogeneous appearance of transplanted liver. This is nonspecific on the unenhanced study. Consideration could be given to ultrasound assessment if indicated. Otherwise, there is no evidence of acute abnormality. In particular, there is no significant splenomegaly or free fluid. CXR 03/28: IMPRESSION: 1. The appearance of the chest has worsened since the prior study as bibasilar pneumonia/atelectasis has developed. There is no acute cardiopulmonary abnormality noted otherwise. Discharge Instructions to patient/family Please see electronic discharge instructions given to patient. Discharge Medications Reviewed and agree with Discharge Medication list on patient's Discharge Instruction sheet Clinical Quality Measures DVT/VTE Risk/Contraindication: Risk Factor Score Per Nursin RFS Level Per Nursing on Admit: 3=High Copy Copies To 1: TEREZA JAVIER MD, BETHANY N MD Mar 30, 2017 14:52
[2017-03-31] MEDS ORDERED: TROUGH ORDER-PHARMACY XX NR (07:00)
== END 2017-03-29 22:02 | disposition short-term general hospital (02) | DRG 871 ==
LOC: EDUNIT# 23:29 → ER 23:31 → ICU 03-29 01:20
PROVIDERS: ADMIT Family Medicine; ATTEND Family Medicine
DX: J69.0 Pneumonitis due to inhalation of food and vomit; R00.1 Bradycardia, unspecified; F41.9 Anxiety disorder, unspecified; G89.29 Other chronic pain; F17.210 Nicotine dependence, cigarettes, uncomplicated; I12.9 Hypertensive chronic kidney disease with stage 1 through stage 4 chronic kidney disease, or unspecified chronic kidney disease; J43.2 Centrilobular emphysema; F32.9 Major depressive disorder, single episode, unspecified; A41.9 Sepsis, unspecified organism; Z94.4 Liver transplant status; K72.90 Hepatic failure, unspecified without coma; N18.9 Chronic kidney disease, unspecified
CPT/HCPCS: 36415; 70450; 71010; 71250; 74176; 80048; 80053; 80329; 82140; 82805; 83605; 83735; 83880; 84100; 84443; 84484; 85007; 85025; 85027; 85610; 85730; 87040; 87081; 93005; 94640; 94664

== ENCOUNTER → 2017-03-28 | Outpatient (CLI) | payer MEDICAID ==
[2017-03-28 13:36] LABS: BILIRUBIN,URINE NEGATIVE (NEGATIVE); KETONES,URINE NEGATIVE (NEGATIVE); LEUKOCYTE ESTERASE ,URINE 1+ (NEGATIVE); NITRITE,URINE NEGATIVE (NEGATIVE); PH,URINE 5 (5-9); PROTEIN,URINE 3+ (NEGATIVE); UROBILINOGEN,URINE NORMAL (NORMAL)
[2017-03-28 13:45] LABS: WBC,URINE RARE /HPF
[2017-03-28 13:51] LABS: MEAN PLATELET VOLUME 11.4 FL (7.4-10.4); RED BLOOD COUNT 3.9 10^6/uL (4.35-5.85); RED CELL DISTRIBUTION WIDTH 14.2 % (10.0-14.5); WHITE BLOOD COUNT 14.4 10^3/uL (4.3-11.0)
[2017-03-28 13:54] LABS: PROTEIN/CREATININE RATIO 0.32
[2017-03-28 14:08] LABS: BILIRUBIN,DIRECT 0.5 MG/DL (0.0-0.3); BILIRUBIN,INDIRECT 0.7 MG/DL; BILIRUBIN,TOTAL 1.2 MG/DL (0.1-1.0); CALCIUM 8.5 MG/DL (8.5-10.1); CREATININE SERUM 2.15 MG/DL (0.60-1.30); MAGNESIUM 1.8 MG/DL (1.8-2.4); POTASSIUM 4.3 MMOL/L (3.6-5.0); TOTAL PROTEIN 7.2 GM/DL (6.4-8.2); URIC ACID 7.2 MG/DL (2.6-7.2)
[2017-03-29 06:35] LABS: CALCIUM PARA THYROID HORMONE 8.4 mg/dL (8.5-10.5)
== END ==
LOC: LAB 13:08
PROVIDERS: ATTEND Internal Medicine Gastroenterology
DX: K74.60 Unspecified cirrhosis of liver (principal)
CPT/HCPCS: 36415; 80069; 80076; 81000; 82140; 82247; 82248; 82550; 82570; 83735; 83970; 84075; 84155; 84156; 84450; 84460; 84550; 85027

== ENCOUNTER → 2017-03-28 | Outpatient (CLI) | payer MEDICAID | LOC: LAB 12:58 | PROVIDERS: ATTEND Internal Medicine Nephrology | DX: R80.8 Other proteinuria; E55.9 Vitamin D deficiency, unspecified; I12.9 Hypertensive chronic kidney disease with stage 1 through stage 4 chronic kidney disease, or unspecified chronic kidney disease; N18.3 Chronic kidney disease, stage 3 (moderate) ==

== ENCOUNTER 2017-07-16 09:09 | Emergency (ER) | payer MEDICAID ==
[~2017-07-16] VITALS: Ht 182.9 cm; Wt 83.9 kg
[~2017-07-16 09:09] MED LIST changes: +AMLO5TAB2 PO; +CHOL20003 PO; +LACT10SO PO; +MAGN500T PO; +METH-288 PO; +METH10TA3 PO; +NADO40TA PO; -RT-ALBUTEROL/IPRATROPIUM 3 ML (DUONEB) VIAL ONE; -RT-IPRATROPIUM (ATROVENT) 0.5MG/2.5ML AMP IH ONE; +SENN-1 PO; +TACR0.5C PO
[2017-07-16] MEDS ORDERED: HALOPERIDOL 5 MG/ML (HALDOL) AMP IM ONE (09:15)
--- OUTSIDE RECORDS SUMMARY | 2017-07-16 09:15 | XMS REPORT | Clinical Summary ---
Author Author [facility] Organization [facility] Address Unknown Phone Unavailable Care Team Providers Care Parking Attendant Name Role Phone PCP Unavailable Source Comments Some departments are not documenting in the electronic medical record. If you do not see the information that you expected, contact Release of Information in the Health Information Management department at [phone] for further assistance in locating additional records.[facility] Allergies Active Allergy Reactions Severity Noted Date [...] 2006 SCREENING SHINGLES VACCINE 2016 INFLUENZA VACCINE 02/06/2017 HEPATITIS C SCREENING Completed 03/16/2004 Results Not on filefrom Last 3 Months
--- OUTSIDE RECORDS SUMMARY | 2017-07-16 09:16 | XMS REPORT ---
Author Author TEREZA JAVIER [facility] Address [address] [place] [address] Care Team Providers Care Cardiovascular Invasive Specialist Name Role Phone TEREZA JAVIER Unavailable PROBLEMS Type Condition ICD9-CM Code [id number] Code Onset Dates Condition Status SNOMED Code Problem Essential hypertension I10 Active 41054529 Problem Reactive depression F32.9 Active 35206407 Problem ZOSTAVAX DX V05.8 Active 55577761 Problem History of liver transplant Z94.4 Active 044571606 Problem Sciatica of left side M54.32 Active 64215916 ALLERGIES No Known Allergies SOCIAL HISTORY Never Assessed PLAN OF CARE Activity Details Follow Up 3 Months Reason: VITAL SIGNS Height 72 in 2016-09-12 Weight 175.5 lbs 2016-09-12 Temperature 98.5 degrees Fahrenheit 2016-09-12 Heart Rate 92 bpm 2016-09-12 Respiratory Rate 20 2016-09-12 BMI 23.80 kg/m2 2016-09-12 Blood pressure systolic 132 mmHg 2016-09-12 Blood pressure diastolic 80 mmHg 2016-09-12 MEDICATIONS Medication Instructions Dosage Frequency Start Date End Date Duration Status OxyContin 80 MG Orally 3 times a day 1 tablet 8h Sep, 28 days Active Oxycodone HCl 30 MG Orally every 4 hrs 1 tablet 4h Sep, 28 days Active Symbicort 160-4.5 MCG/ACT Inhalation Twice a day 2 puffs 12h Active Lactulose 20 GM/30ML Orally 4 times a day 45 ml 6h Active Klor-Con 25 MEQ Orally Once a day 1 packet with food 24h Active Prograf 0.5 MG Orally Once a day 3 capsules 24h Active Xifaxan 550 MG Orally Twice a day 1 tablet 12h Active Albuterol Sulfate (5 MG/ML) 0.5% Inhalation Three times a day 0.5 ml 8h Active Potassium 99 MG Orally Once a day 1 tablet 24h Active Magnesium 500 MG Orally twice a day 1 tablet with a meal 12h Active Vitamin D 1000 UNIT Orally Once a day 1 tablet 24h Active Nebulizer - Active RESULTS No Results PROCEDURES No Known procedures IMMUNIZATIONS No Known Immunizations MEDICAL (GENERAL) HISTORY Type Description Date Medical History cirrhosis of liver Medical History liver transplant Surgical History liver transplant Hospitalization History liver transplant
--- OUTSIDE RECORDS SUMMARY | 2017-07-16 09:18 | XMS REPORT ---
Author Author TEREZA JAVIER [facility] Address [address] [place] [address] Care Team Providers Care Reclamation Worker Name Role Phone TEREZA JAVIER Unavailable PROBLEMS Type Condition ICD9-CM Code [id number] Code Onset Dates Condition Status SNOMED Code Problem Essential hypertension I10 Active 88821741 Problem Reactive depression F32.9 Active 38594705 Problem ZOSTAVAX DX V05.8 Active 30255403 Problem History of liver transplant Z94.4 Active 189958944 Problem Sciatica of left side M54.32 Active 32657863 ALLERGIES No Information SOCIAL HISTORY Never Assessed PLAN OF CARE VITAL SIGNS MEDICATIONS Medication Instructions Dosage Frequency Start Date End Date Duration Status OxyContin 80 MG Orally 3 times a day 1 tablet 8h November, 28 days Active Oxycodone HCl 30 MG Orally every 4 hrs 1 tablet 4h November, 28 days Active RESULTS No Results PROCEDURES No Known procedures IMMUNIZATIONS No Known Immunizations MEDICAL (GENERAL) HISTORY Type Description Date Medical History cirrhosis of liver Medical History liver transplant Surgical History liver transplant Hospitalization History liver transplant
[2017-07-16] MEDS ORDERED: NS IV 1000 ML 1,000 ML IV ONE (09:19)
--- OUTSIDE RECORDS SUMMARY | 2017-07-16 09:20 | XMS REPORT ---
Author Author TEREZA JAVIER [facility] Address [address] [place] [address] Care Team Providers Care Train Engineer Name Role Phone TEREZA JAVIER Unavailable PROBLEMS Type Condition ICD9-CM Code [id number] Code Onset Dates Condition Status SNOMED Code Problem Essential hypertension I10 Active 16303805 Problem Reactive depression F32.9 Active 36234419 Problem ZOSTAVAX DX V05.8 Active 91073172 Problem History of liver transplant Z94.4 Active 561968626 Problem Sciatica of left side M54.32 Active 72873259 ALLERGIES No Information SOCIAL HISTORY Never Assessed PLAN OF CARE VITAL SIGNS MEDICATIONS Medication Instructions Dosage Frequency Start Date End Date Duration Status OxyContin 80 MG Orally 3 times a day 1 tablet 8h Sep, 28 days Active Oxycodone HCl 30 MG Orally every 4 hrs 1 tablet 4h Sep, 28 days Active RESULTS No Results PROCEDURES No Known procedures IMMUNIZATIONS No Known Immunizations MEDICAL (GENERAL) HISTORY Type Description Date Medical History cirrhosis of liver Medical History liver transplant Surgical History liver transplant Hospitalization History liver transplant
--- OUTSIDE RECORDS SUMMARY | 2017-07-16 09:27 | XMS REPORT | Continuity of Care Document ---
Author Author [facility] Organization [facility] Address Unknown Phone Unavailable Allergies Active Description Code Type Severity Reaction Onset Reported/Identified Relationship to Patient Clinical Status Yes CONTRAST DYE/RADIOLOGY DYE CONTRAST DYE/RADIOLOGY DYE Unknown N/A 04/10 Yes NSADS NSADS Unknown N/A 04/10/2014 Yes Heparin Analogues [id number] Drug Allergy Mild N/A 07/22/2015 Yes codeine [id number] Drug Allergy Unknown TAKES OXYCODONE 07/22/2015 Yes fentanyl [id number] Drug Allergy Unknown N/A 07/22/2015 Yes morphine [id number] Drug Allergy Unknown N/A 07/22/2015 Yes sumatriptan [id number] Drug Allergy Unknown N/A 07/22/2015 Yes zolpidem [id number] Drug Allergy Unknown N/A 07/22/2015 Medications There is no data. Problems Date Dx Coded Attending Type Code Diagnosis Diagnosed By 01/03/2010 Ot 572.2 01/03/2010 Ot 572.8 01/03/2010 Ot 996.82 01/03/2010 Ot E849.9 01/03/2010 Ot E878.0 01/24/2010 Ot V42.7 01/24/2010 Ot V58.44 01/24/2010 Ot V58.69 02/07/2010 Ot 560.1 02/07/2010 Ot 572.8 02/07/2010 Ot 585.9 02/07/2010 Ot 593.9 02/07/2010 Ot 996.82 02/07/2010 Ot E937.9 03/19/2010 Ot 285.9 ANEMIA NOS 03/19/2010 Ot 300.4 DYSTHYMIC DISORDER 03/19/2010 Ot 789.00 ABDOMINAL PAIN, UNSPECIFIED SITE 03/19/2010 Ot V42.7 LIVER TRANSPLANT STATUS 03/19/2010 Ot V58.69 OTH MED,LT, CURRENT USE 03/21/2010 Ot 070.70 03/21/2010 Ot 285.9 03/21/2010 Ot 535.40 03/21/2010 Ot 553.3 03/21/2010 Ot 572.8 03/21/2010 Ot V42.7 03/21/2010 Ot V58.69 04/12/2010 Ot 300.4 DYSTHYMIC DISORDER 04/12/2010 Ot 496 CHR AIRWAY OBSTRUCT NEC 04/12/2010 Ot 560.9 INTESTINAL OBSTRUCT NOS 04/12/2010 Ot V42.7 LIVER TRANSPLANT STATUS 04/12/2010 Ot V58.69 OTH MED,LT, CURRENT USE 05/24/2010 Ot 285.9 ANEMIA NOS 05/24/2010 Ot 796.4 ABN CLINICAL FINDING NEC 07/11/2010 Ot 276.51 DEHYDRATION 07/11/2010 Ot 276.7 HYPERPOTASSEMIA 07/11/2010 Ot 285.9 ANEMIA NOS 07/11/2010 Ot 300.00 ANXIETY STATE NOS 07/11/2010 Ot 305.1 TOBACCO USE DISORDER 07/11/2010 Ot 493.20 CHRONIC OBSTRUCTIVE ASTHMA, NOS 07/11/2010 Ot 572.2 HEPATIC ENCEPHALOPATHY 07/11/2010 Ot 572.8 OTH SEQUELA, CHR LILIANA DIS 07/11/2010 Ot 573.3 HEPATITIS NOS 07/11/2010 Ot 996.82 COMPLICATIONS OF TRANSPLANTED LIVER 07/11/2010 Ot V10.07 HX OF LIVER MALIGNANCY 07/11/2010 Ot V11.3 HX OF ALCOHOLISM 09/14/2010 Ot 285.9 ANEMIA NOS 09/14/2010 Ot 796.4 ABN CLINICAL FINDING NEC 01/20/2012 Ot 155.0 MAL FIDEL LIVER , PRIMARY 01/20/2012 Ot 496 CHR AIRWAY OBSTRUCT NEC 01/20/2012 Ot 572.8 OTH SEQUELA, CHR LILIANA DIS 01/20/2012 Ot 585.9 CHRONIC KIDNEY DISEASE, UNSPECIFIED 01/20/2012 Ot 784.0 HEADACHE 01/20/2012 Ot 787.01 NAUSEA WITH VOMITING 01/20/2012 Ot 791.9 ABN URINE FINDINGS NEC 01/20/2012 Ot V42.7 LIVER TRANSPLANT STATUS 10/16/2012 Ot 573.8 LIVER DISORDERS NEC 10/16/2012 Ot 593.9 RENAL URETERAL DIS NOS 10/16/2012 Ot 789.09 ABDOMINAL PAIN, OTHER SPECIFIED SITE 01/29/2013 JJ CORRAL DO Ot 959.4 HAND INJURY NOS 01/29/2013 JJ CORRAL DO Ot E000.8 OTHER EXTERNAL CAUSE STATUS 01/29/2013 JJ CORRAL DO Ot E928.9 ACCIDENT NOS 03/30/2013 TEREZA BRADEN MD Ot 572.8 OTH SEQUELA, CHR LILIANA DIS 03/30/2013 TEREZA BRADEN MD Ot 585.3 CHRONIC KIDNEY DISEASE, STAGE III (MODER 04/07/2013 EDUARDO PALACIO Ot V42.7 LIVER TRANSPLANT STATUS 04/07/2013 EDUARDO PALACIO Ot V58.69 OTH MED,LT,CURRENT USE 04/07/2013 EDUARDO PALACIO Ot V58.83 ENCOUNTER FOR THERAPEUTIC DRUG MONITORIN 06/11/2013 EDUARDO PALACIO Ot V42.7 LIVER TRANSPLANT STATUS 06/11/2013 EDUARDO PALACIO Ot V58.44 AFTERCARE FOLLOWING ORGAN TRANSPLANT 06/11/2013 EDUARDO PALACIO Ot V58.69 OTH MED,LT,CURRENT USE 06/30/2013 TEREZA BRADEN MD Ot 572.8 OTH SEQUELA, CHR LILIANA DIS 06/30/2013 TEREZA BRADEN MD Ot 585.3 CHRONIC KIDNEY DISEASE, STAGE III (MODER 07/08/2013 MARIA LUISA STARR, MICHAEL Joel Ot 276.51 DEHYDRATION 07/08/2013 MARIA LUISA STARR, MICHAEL Joel Ot 301.9 PERSONALITY DISORDER NOS 07/08/2013 MARIA LUISA STARR, MICHAEL Joel Ot 305.1 TOBACCO USE DISORDER 07/08/2013 MARIA LUISA STARR, MICHAEL Joel Ot 305.90 DRUG ABUSE NEC-UNSPEC 07/08/2013 MARIA LUISA STARR, MICHAEL Joel Ot 487.0 INFLUENZA WITH PNEUMONIA 07/08/2013 MICHAEL GLASS MD Ot 782.4 JAUNDICE NOS 07/08/2013 MICHAEL GLASS MD Ot V42.7 LIVER TRANSPLANT STATUS 09/10/2013 EDUARDO PALACIO Ot V42.7 LIVER TRANSPLANT STATUS 09/10/2013 EDUARDO PALACIO Ot V58.44 AFTERCARE FOLLOWING ORGAN TRANSPLANT 09/10/2013 EDUARDO PALACIO Ot V58.69 OTH MED,LT,CURRENT USE 11/20/2013 TEREZA BRADEN MD Ot 572.8 OTH SEQUELA, CHR LILIANA DIS 11/20/2013 TEREZA BRADEN MD Ot 585.3 CHRONIC KIDNEY DISEASE, STAGE III (MODER 12/11/2013 EDUARDO PALACIO Ot V42.7 LIVER TRANSPLANT STATUS 12/11/2013 EDUARDO PALACIO Ot V58.44 AFTERCARE FOLLOWING ORGAN TRANSPLANT 12/11/2013 EDUARDO PALACIO Ot V58.69 OTH MED,LT,CURRENT USE 12/29/2013 SALOME PERSAUD Ot 724.3 SCIATICA 03/02/2014 LOYDA DOMINGUEZ MD Ot 305.1 TOBACCO USE DISORDER 03/02/2014 LOYDA DOMINGUEZ MD Ot 427.9 CARDIAC DYSRHYTHMIA NOS 03/02/2014 LOYDA DOMINGUEZ MD Ot 585.9 CHRONIC KIDNEY DISEASE, UNSPECIFIED 03/02/2014 LOYDA DOMINGUEZ MD Ot 790.29 OTHER ABNORMAL GLUCOSE 03/02/2014 LOYDA DOMINGUEZ MD Ot V15.81 HX OF PAST NONCOMPLIANCE 03/15/2014 TEREZA BRADEN MD Ot 572.8 OTH SEQUELA, CHR LILIANA DIS 03/15/2014 TEREZA BRADEN MD Ot 585.3 CHRONIC KIDNEY DISEASE, STAGE III (MODER 03/15/2014 EDUARDO PALACIO Ot V42.7 LIVER TRANSPLANT STATUS 03/15/2014 EDUARDO PALACIO Ot V58.44 AFTERCARE FOLLOWING ORGAN TRANSPLANT 03/15/2014 EDUARDO PALACIO Ot V58.69 OTH MED,LT,CURRENT USE 04/12/2014 MICHAEL GLASS MD Ot 276.51 DEHYDRATION 04/12/2014 MICHAEL GLASS MD Ot 285.9 ANEMIA NOS 04/12/2014 MICHAEL GLASS MD Ot 435.9 TRANS CEREB ISCHEMIA NOS 04/12/2014 MICHAEL GLASS MD Ot 496 CHR AIRWAY OBSTRUCT NEC 04/12/2014 MICHAEL GLASS MD Ot 572.2 HEPATIC ENCEPHALOPATHY 04/12/2014 MICHAEL GLASS MD Ot 572.8 OTH SEQUELA, CHR LILIANA DIS 04/12/2014 MICHAEL GLASS MD Ot 724.3 SCIATICA 04/12/2014 MICHAEL GLASS MD Ot 790.6 ABN BLOOD CHEMISTRY NEC 04/12/2014 MICHAEL GLASS MD Ot V04.81 ND FOR PROPHYLACTIC VACCIN AND INOCULATI 04/12/2014 MARIA LUISA STARR, MICHAEL Joel Ot V42.7 LIVER TRANSPLANT STATUS 04/24/2014 TEREZA BRADEN MD Ot 572.8 OTH SEQUELA, CHR LILIANA DIS 04/24/2014 TEREZA BRADEN MD Ot 585.3 CHRONIC KIDNEY DISEASE, STAGE III (MODER 05/21/2014 RAMESH STARR, PRSICILA B Ot 268.9 05/21/2014 RAMESH STARR, PRISCILA B Ot 275.2 05/21/2014 RAMESH STARR, PRISCILA B Ot 585.3 05/27/2014 TEREZA BRADEN MD Ot 572.8 05/27/2014 TEREZA BRADEN MD Ot 585.3 05/27/2014 TEREZA BRADEN MD Ot 790.6 06/21/2014 EDUARDO PALACIO Ot V42.7 LIVER TRANSPLANT STATUS 06/21/2014 EDUARDO PALACIO Ot V58.44 AFTERCARE FOLLOWING ORGAN TRANSPLANT 06/21/2014 EDUARDO PALACIO Ot V58.69 OT MED,LT,CURRENT USE 07/20/2014 TEREZA BRADEN MD Ot 572.8 OTH SEQUELA, CHR LILIANA DIS 07/20/2014 TEREZA BRADEN MD Ot 585.3 CHRONIC KIDNEY DISEASE, STAGE III (MODER 07/20/2014 TEREZA BRADEN MD Ot 790.6 ABN BLOOD CHEMISTRY NEC 08/11/2014 TEREZA BRADEN MD Ot 572.8 08/11/2014 TEREZA BRADEN MD Ot 585.3 08/11/2014 TEREZA BRADEN MD Ot 790.6 08/11/2014 EDUARDO PALACIO Ot V42.7 08/11/2014 EDUARDO PALACIO Ot V58.44 08/11/2014 EDUARDO PALACIO Ot V58.69 08/12/2014 EDUARDO PALACIO Ot V42.7 08/12/2014 EDUARDO PALACIO Ot V58.44 08/12/2014 EDUARDO PALACIO Ot V58.69 08/12/2014 TEREZA BRADEN MD Ot 572.8 08/12/2014 ASIYA STARR, TEREZA Mathew Ot 585.3 08/12/2014 ASIYA STARR, TEREZA Mathew Ot 790.6 08/27/2014 EDUARDO PALACIO Ot V42.7 08/27/2014 EDUARDO PALACIO Ot V58.44 08/27/2014 EDUARDO PALACIO Ot V58.69 08/27/2014 ASIYA STARR, TEREZA Mathew Ot 572.8 08/27/2014 ASIYA STARR, TEREZA Mathew Ot 585.3 08/27/2014 ASIYA STARR, TEREZA Mathew Ot 790.6 10/06/2014 Ot 268.9 10/06/2014 Ot 275.2 10/06/2014 Ot 403.90 10/06/2014 Ot 585.3 11/09/2014 EDUARDO PALACIO Ot V42.7 LIVER TRANSPLANT STATUS 11/09/2014 EDUARDO PALACIO Ot V58.44 AFTERCARE FOLLOWING ORGAN TRANSPLANT 11/09/2014 EDUARDO PALACIO Ot V58.69 OTH MED,LT,CURRENT USE 11/09/2014 ASIYA STARR, TEREZA Mathew Ot 572.8 OTH SEQUELA, CHR LILIANA DIS 11/09/2014 ASIYA STARR, TEREZA Mathew Ot 585.3 CHRONIC KIDNEY DISEASE, STAGE III (MODER 11/09/2014 ASIYA STARR, TEREZA Mathew Ot 790.6 ABN BLOOD CHEMISTRY NEC 11/18/2014 EDUARDO PALACIO Ot V42.7 LIVER TRANSPLANT STATUS 11/18/2014 EDUARDO PALACIO Ot V58.44 AFTERCARE FOLLOWING ORGAN TRANSPLANT 11/18/2014 EDUARDO PALACIO Ot V58.69 OTH MED,LT,CURRENT USE 11/18/2014 ASIYA STARR, TEREZA Mathew Ot 572.8 11/18/2014 ASIYA STARR, TEREZA Mathew Ot 585.3 11/18/2014 ASIYA STARR, TEREZA Mathew Ot 790.6 11/19/2014 AISYA STARR, TEREZA Mathew Ot 572.8 11/19/2014 ASIYA STARR, TEREZA Mathew Ot 585.3 11/19/2014 ASIYA STARR, TEREZA Mathew Ot 790.6 12/18/2014 MARIA LUISA STARR, MICHAEL J Ot 729.82 12/18/2014 MARIA LUISA STARR, MICHAEL J Ot 780.60 12/18/2014 MARIA LUISA STARR, MICHAEL J Ot V58.69 12/29/2014 ASIYA STARR, YADY Ot 572.8 12/29/2014 ASIYA STARR, YADY Ot 585.3 12/29/2014 ASIYA STARR, YADY Ot 790.6 01/06/2015 ASIYA STARR, YADY Ot 571.5 01/06/2015 ASIYA STARR, YADY Ot V42.7 02/05/2015 ASIYA STARR, YADY Ot 571.5 02/05/2015 ASIYA STARR, YADY Ot V42.7 02/16/2015 ASIYA STARR, TEREZA Mathew Ot 572.8 OTH SEQUELA, CHR LILIANA DIS 02/16/2015 ASIYA STARR, TEREZA Mathew Ot 585.3 CHRONIC KIDNEY DISEASE, STAGE III (MODER 02/16/2015 ASIYA STARR, TEREZA Mathew Ot 790.6 ABN BLOOD CHEMISTRY NEC 02/17/2015 ASIYA STRAR, TEREZA Mathew Ot 572.8 02/17/2015 ASIYA STARR, YADY Ot 585.3 02/17/2015 ASIYA STARR, YADY Ot 790.6 02/17/2015 MARIA LUISA STARR, MICHAEL Joel Ot 573.9 02/17/2015 MARIA LUISA STARR, MICHAEL J Ot 780.60 02/17/2015 MARIA LUISA STARR, MICHAEL Joel Ot V42.7 03/17/2015 ASIYA STARR, TEREZA Mathew Ot 572.8 03/17/2015 ASIYA STARR, TEREZA aMthew Ot 585.3 03/17/2015 ASIYA STARR, TEREZA Mathew Ot 790.6 03/18/2015 ASIYA STARR, TEREZA Mathew Ot 572.8 03/18/2015 ASIYA STARR, TEREZA Mathew Ot 585.3 03/18/2015 ASIYA STARR, TEREZA Mathew Ot 790.6 03/30/2015 EDUARDO PALACIO Ot 268.9 03/30/2015 EDUARDO PALACIO Ot 272.4 03/30/2015 EDUARDO PALACIO Ot V42.7 03/30/2015 EDUARDO PALACIO Ot V58.69 04/01/2015 ASIYA STARR, TEREZA Mathew Ot 572.8 04/01/2015 ASIYA STARR, TEREZA Mathew Ot 585.3 04/01/2015 ASIYA STARR, TEREZA Mathew Ot 790.6 04/07/2015 ASIYA STARR, TEREZA Mathew Ot 572.8 OTH SEQUELA, CHR LILIANA DIS 04/07/2015 ASIYA STARR, TEREZA Mathew Ot 585.3 CHRONIC KIDNEY DISEASE, STAGE III (MODER 04/07/2015 ASIYA STARR, TEREZA Mathew Ot 790.6 ABN BLOOD CHEMISTRY NEC 04/07/2015 RAMESH STARR, PRISCILA Vieira Ot 268.9 VITAMIN D DEFICIENCY NOS 04/07/2015 RAMESH STARR, PRISCILA Vieira Ot 275.2 DIS MAGNESIUM METABOLISM 04/07/2015 RAMESH STARR, PRISCILA Vieira Ot 403.90 HYPTNSV CHR KID DIS, UNSPEC, W CHR KD ST 04/07/2015 RAMESH STARR, PRISCILA Vieira Ot 585.3 CHRONIC KIDNEY DISEASE, STAGE III (MODER 04/13/2015 ASIYA STARR, TEREZA Mathew Ot 572.8 04/13/2015 ASIYA STARR, TEREZA Mathew Ot 585.3 04/13/2015 ASIYA STARR, TEREZA Mathew Ot 790.6 04/16/2015 ASIYA STARR, TEREZA Mathew Ot 572.8 04/16/2015 ASIYA STARR, TEREZA Mathew Ot 585.3 04/16/2015 ASIYA STARR, TEREZA Mathew Ot 790.6 05/06/2015 ASIYA STARR, TEREZA Mathew Ot 572.8 05/06/2015 ASIYA STARR, TEREZA Mathew Ot 585.3 05/06/2015 ASIYA STARR, TEREZA Mathew Ot 790.6 05/21/2015 ASIYA STARR, TEREZA Mathew Ot K72.90 05/21/2015 ASIYA STARR, TEREZA Mahtew Ot N18.3 05/21/2015 ASIYA STARR, TEREZA Mathew Ot R79.89 05/21/2015 ASIYA STARR, TEREZA Mathew Ot Z51.81 05/21/2015 ASIYA STARR, TEREZA Mathew Ot Z79.899 05/21/2015 ASIYA STARR, TEREZA Mathew Ot Z94.4 05/21/2015 MARIA LUISA STARR, MICHAEL Joel Ot K72.90 06/11/2015 Ot V42.7 06/11/2015 Ot V58.44 06/11/2015 Ot V58.69 06/11/2015 Ot 996.82 06/11/2015 Ot 285.9 06/11/2015 Ot 571.5 06/11/2015 Ot 571.5 06/11/2015 Ot 786.9 06/11/2015 Ot 276.7 06/11/2015 Ot 285.9 06/11/2015 Ot 572.8 06/11/2015 Ot 276.7 06/11/2015 Ot 571.2 06/11/2015 Ot 572.8 06/11/2015 Ot 276.7 06/11/2015 Ot 571.2 06/11/2015 Ot 572.8 06/11/2015 Ot 572.8 06/11/2015 Ot 586 06/11/2015 Ot 572.8 06/11/2015 Ot 572.8 06/11/2015 Ot 572.8 06/11/2015 Ot 276.7 06/11/2015 Ot 571.2 06/11/2015 Ot 572.8 06/11/2015 Ot 572.8 06/11/2015 Ot 572.8 06/11/2015 Ot 572.8 06/11/2015 Ot 276.7 06/11/2015 Ot 572.8 06/11/2015 Ot 572.8 06/11/2015 Ot 572.8 06/11/2015 Ot 572.8 06/11/2015 Ot 572.8 06/11/2015 Ot 572.8 06/11/2015 Ot 572.8 06/11/2015 Ot 572.8 06/11/2015 Ot 572.8 06/11/2015 Ot 572.8 06/11/2015 Ot 572.8 06/11/2015 Ot 572.8 06/11/2015 Ot 572.8 06/11/2015 Ot 572.8 06/11/2015 Ot 572.8 06/11/2015 Ot 572.8 06/11/2015 Ot 572.8 06/11/2015 Ot 572.8 06/11/2015 Ot 572.8 06/11/2015 Ot 572.8 06/11/2015 Ot 285.9 06/11/2015 Ot 572.8 06/11/2015 Ot 585.6 06/11/2015 Ot V42.7 06/11/2015 Ot 572.8 06/11/2015 Ot 572.8 06/11/2015 Ot 572.8 06/11/2015 Ot 585.9 06/11/2015 Ot 572.8 06/11/2015 Ot 572.8 06/11/2015 Ot 572.8 06/11/2015 Ot 572.8 06/11/2015 Ot 276.8 06/11/2015 Ot 572.8 06/11/2015 Ot 585.3 06/11/2015 Ot 588.81 06/11/2015 Ot 571.5 06/11/2015 Ot V42.7 06/11/2015 Ot 572.8 06/11/2015 Ot 585.3 06/11/2015 Ot 285.9 06/11/2015 Ot 585.3 06/11/2015 Ot 572.8 06/11/2015 Ot 572.8 06/11/2015 Ot 572.8 06/11/2015 Ot 585.3 06/11/2015 Ot 572.8 06/11/2015 Ot 572.8 06/11/2015 Ot 070.54 06/11/2015 Ot 285.9 06/11/2015 Ot 491.20 06/11/2015 Ot 572.8 06/11/2015 Ot 585.9 06/11/2015 Ot V42.7 06/11/2015 Ot 572.8 06/11/2015 Ot 572.8 06/11/2015 Ot 585.9 06/11/2015 Ot 572.8 06/11/2015 Ot 585.9 06/11/2015 Ot 572.8 06/11/2015 Ot 585.3 06/11/2015 Ot 572.8 06/11/2015 Ot 572.8 06/11/2015 Ot 285.9 06/11/2015 Ot 496 06/11/2015 Ot 572.8 06/11/2015 Ot 607.84 06/11/2015 Ot 780.79 06/11/2015 Ot V42.7 06/11/2015 Ot V58.69 06/11/2015 Ot 572.8 06/11/2015 Ot 796.4 06/11/2015 Ot V42.7 06/11/2015 Ot 572.8 06/11/2015 Ot 572.8 06/11/2015 Ot 572.8 06/11/2015 Ot 070.54 06/11/2015 Ot 572.8 06/11/2015 Ot 585.3 06/11/2015 Ot 572.8 06/11/2015 Ot 572.8 06/11/2015 Ot 572.8 06/11/2015 Ot 572.8 06/11/2015 Ot 572.8 06/11/2015 Ot 572.8 06/11/2015 Ot V42.7 06/11/2015 Ot 268.9 06/11/2015 Ot 281.1 06/11/2015 Ot 285.9 06/11/2015 Ot 491.21 06/11/2015 Ot 572.8 06/11/2015 Ot 585.3 06/11/2015 Ot V42.7 06/11/2015 Ot V58.69 06/11/2015 Ot 573.8 06/11/2015 Ot 593.9 06/11/2015 Ot 721.3 06/11/2015 Ot V58.69 06/11/2015 Ot 572.8 06/11/2015 Ot V42.7 06/11/2015 Ot 572.8 06/11/2015 Ot 585.3 06/11/2015 Ot 572.8 06/11/2015 Ot 572.8 06/11/2015 Ot 585.3 06/11/2015 Ot 572.8 06/11/2015 Ot 268.9 06/11/2015 Ot 275.2 06/11/2015 Ot 572.8 06/11/2015 Ot 585.3 06/11/2015 Ot V42.7 06/11/2015 Ot V58.69 06/11/2015 Ot 573.8 06/11/2015 Ot 593.9 06/11/2015 Ot 789.09 06/11/2015 RAMESH STARR, PRISCILA Vieira Ot 285.9 06/11/2015 RAMESH STARR, PRISCILA Vieira Ot 572.8 06/11/2015 PRISCILA CHANDLER MD Ot 585.9 06/11/2015 EDUARDO PALACIO Ot 572.8 06/11/2015 EDUARDO PALACIO Ot 585.9 06/11/2015 PRISCILA CHANDLER MD Ot 285.9 06/11/2015 PRISCILA CHANDLER MD Ot 572.8 06/11/2015 RAMESH STARR, PRISCILA B Ot 585.9 06/11/2015 EDUARDO PALACIO Ot 572.8 06/11/2015 TEREZA BRADEN MD Ot 572.8 06/11/2015 TEREZA BRADEN MD Ot 585.3 06/11/2015 RAMESH STARR, PRISCILA B Ot 268.9 06/11/2015 RAMESH STARR, PRISCILA B Ot V42.7 06/11/2015 MARIA LUISA STARR, MICHAEL Joel Ot 780.79 06/11/2015 PRISCILA CHANDLER MD B Ot 585.3 06/11/2015 MARIA LUISA STARR, MICHAEL Joel Ot 719.06 06/11/2015 MARIA LUISA STARR, MICHAEL Joel Ot 719.47 06/11/2015 TEREZA BRADEN MD Ot V42.7 06/11/2015 TEREZA BRADEN MD Ot V58.44 06/11/2015 PRISCILA CHANDLER MD Ot 268.9 06/11/2015 PRISCILA CHANDLER MD Ot 276.8 06/11/2015 PRISCILA CHANDLER MD B Ot 585.3 06/11/2015 RAMESH STARR, PRISCILA B Ot 588.81 06/11/2015 MARIA LUISA STARR, MICHAEL Joel Ot 275.41 06/11/2015 MARIA LUISA STARR, MICHAEL Joel Ot 276.9 06/11/2015 MARIA LUISA STARR, MICHAEL Joel Ot 427.89 06/11/2015 TEREZA BRADEN MD Ot 572.8 06/11/2015 TEREZA BRADEN MD Ot 585.3 06/11/2015 TEREZA BRADEN MD Ot 790.6 06/11/2015 ANGELICA STARR, LOYDA Joel Ot 427.9 06/11/2015 ANGELICA STARR, LOYDA Joel Ot 585.9 06/11/2015 ANGELICA STARR, LOYDA Joel Ot V15.81 06/11/2015 MARIA LUISA STARR, MICHAEL Joel Ot 721.3 06/11/2015 MARIA LUISA STARR, MICHAEL Joel Ot 722.10 06/11/2015 MARIA LUISA STARR, MICHAEL Joel Ot V15.88 06/11/2015 MARIA LUISA STARR, MICHAEL Joel Ot 722.52 06/11/2015 MARIA LUISA STARR, MICHAEL Joel Ot 737.30 06/11/2015 Ot 305.1 06/11/2015 Ot 427.9 06/11/2015 Ot 585.9 06/11/2015 Ot 790.29 06/11/2015 Ot V15.81 06/11/2015 RAMESH STARR, PRISCILA Vieira Ot 268.9 06/11/2015 RAMESH STARR, PRISCILA Vieira Ot 275.2 06/11/2015 RAMESH STARR, PRISCILA Vieira Ot 585.3 06/11/2015 RAMESH STARR, PRISCILA Vieira Ot 588.81 06/11/2015 RAMESH STARR, PRISCILA Vieira Ot 268.9 06/11/2015 RAMESH STARR, PRISCILA Vieira Ot 275.2 06/11/2015 RAMESH STARR, PRISCILA Vieira Ot 585.3 06/11/2015 Ot 338.29 06/11/2015 Ot 573.9 06/11/2015 Ot 729.82 06/11/2015 Ot V58.69 06/11/2015 Ot 268.9 06/11/2015 Ot 275.2 06/11/2015 Ot 403.90 06/11/2015 Ot 585.3 06/11/2015 MARIA LUISA STARR, MICHAEL Joel Ot 729.82 06/11/2015 MARIA LUISA STARR, MICHAEL Joel Ot 780.60 06/11/2015 MARIA LUISA STARR, MICHAEL Marycruz Ot V58.69 06/11/2015 ASIYA STARR, TEREZA Mathew Ot 571.5 06/11/2015 TEREZA BRADEN MD Ot V42.7 06/11/2015 MARIA LUISA STARR, MICHAEL Joel Ot 573.9 06/11/2015 MARIA LUISA STARR, MICHAEL Joel Ot 780.60 06/11/2015 MARIA LUISA STARR, MICHAEL Joel Ot V42.7 06/11/2015 EDUARDO PALACIO Ot 268.9 06/11/2015 EDUARDO PALACIO Ot 272.4 06/11/2015 EDUARDO PALACIO Ot V42.7 06/11/2015 EDUARDO PALACIO Ot V58.69 06/11/2015 TEREZA BRADEN MD Ot K72.90 06/11/2015 TEREZA BRADEN MD Ot N18.3 06/11/2015 TEREZA BRADEN MD Ot R79.89 06/11/2015 TEREZA BRADEN MD Ot Z51.81 06/11/2015 TEREZA BRADEN MD Ot Z79.899 06/11/2015 TEREZA BRADEN MD Ot Z94.4 06/11/2015 MARIA LUISA STARR, MICHAEL Joel Ot K72.90 07/12/2015 TEREZA BRADEN MD Ot K72.90 HEPATIC FAILURE, UNSPECIFIED WITHOUT COM 07/12/2015 TEREZA BRADEN MD Ot N18.3 CHRONIC KIDNEY DISEASE, STAGE 3 (MODERAT 07/12/2015 TEREZA BRADEN MD Ot R79.89 OTHER SPECIFIED ABNORMAL FINDINGS OF BLO 07/12/2015 TEREZA BRADEN MD Ot V42.7 LIVER TRANSPLANT STATUS 07/12/2015 TEREZA BRADEN MD Ot V58.69 OT MED,LT,CURRENT USE 07/12/2015 TEREZA BRADEN MD Ot V58.83 ENCOUNTER FOR THERAPEUTIC DRUG MONITORIN 07/12/2015 TEREZA BRADEN MD, Ot Z51.81 ENCOUNTER FOR THERAPEUTIC DRUG LEVEL MON 07/12/2015 TEREZA BRADEN MD Ot Z79.899 OTHER CARE HOME (CURRENT) DRUG THERAPY 07/12/2015 TEREZA BRADEN MD Ot Z94.4 LIVER TRANSPLANT STATUS 07/13/2015 MARIA LUISA STARR, MICHAEL Joel Ot K72.90 07/22/2015 Ot V42.7 07/22/2015 Ot V58.44 07/22/2015 Ot V58.69 07/22/2015 Ot 996.82 07/22/2015 Ot 285.9 07/22/2015 Ot 571.5 07/22/2015 Ot 571.5 07/22/2015 Ot 786.9 07/22/2015 Ot 276.7 07/22/2015 Ot 285.9 07/22/2015 Ot 572.8 07/22/2015 Ot 276.7 07/22/2015 Ot 571.2 07/22/2015 Ot 572.8 07/22/2015 Ot 276.7 07/22/2015 Ot 571.2 07/22/2015 Ot 572.8 07/22/2015 Ot 572.8 07/22/2015 Ot 586 07/22/2015 Ot 572.8 07/22/2015 Ot 572.8 07/22/2015 Ot 572.8 07/22/2015 Ot 276.7 07/22/2015 Ot 571.2 07/22/2015 Ot 572.8 07/22/2015 Ot 572.8 07/22/2015 Ot 572.8 07/22/2015 Ot 572.8 07/22/2015 Ot 276.7 07/22/2015 Ot 572.8 07/22/2015 Ot 572.8 07/22/2015 Ot 572.8 07/22/2015 Ot 572.8 07/22/2015 Ot 572.8 07/22/2015 Ot 572.8 07/22/2015 Ot 572.8 07/22/2015 Ot 572.8 07/22/2015 Ot 572.8 07/22/2015 Ot 572.8 07/22/2015 Ot 572.8 07/22/2015 Ot 572.8 07/22/2015 Ot 572.8 07/22/2015 Ot 572.8 07/22/2015 Ot 572.8 07/22/2015 Ot 572.8 07/22/2015 Ot 572.8 07/22/2015 Ot 572.8 07/22/2015 Ot 572.8 07/22/2015 Ot 572.8 07/22/2015 Ot 285.9 07/22/2015 Ot 572.8 07/22/2015 Ot 585.6 07/22/2015 Ot V42.7 07/22/2015 Ot 572.8 07/22/2015 Ot 572.8 07/22/2015 Ot 572.8 07/22/2015 Ot 585.9 07/22/2015 Ot 572.8 07/22/2015 Ot 572.8 07/22/2015 Ot 572.8 07/22/2015 Ot 572.8 07/22/2015 Ot 276.8 07/22/2015 Ot 572.8 07/22/2015 Ot 585.3 07/22/2015 Ot 588.81 07/22/2015 Ot 571.5 07/22/2015 Ot V42.7 07/22/2015 Ot 572.8 07/22/2015 Ot 585.3 07/22/2015 Ot 285.9 07/22/2015 Ot 585.3 07/22/2015 Ot 572.8 07/22/2015 Ot 572.8 07/22/2015 Ot 572.8 07/22/2015 Ot 585.3 07/22/2015 Ot 572.8 07/22/2015 Ot 572.8 07/22/2015 Ot 070.54 07/22/2015 Ot 285.9 07/22/2015 Ot 491.20 07/22/2015 Ot 572.8 07/22/2015 Ot 585.9 07/22/2015 Ot V42.7 07/22/2015 Ot 572.8 07/22/2015 Ot 572.8 07/22/2015 Ot 585.9 07/22/2015 Ot 572.8 07/22/2015 Ot 585.9 07/22/2015 Ot 572.8 07/22/2015 Ot 585.3 07/22/2015 Ot 572.8 07/22/2015 Ot 572.8 07/22/2015 Ot 285.9 07/22/2015 Ot 496 07/22/2015 Ot 572.8 07/22/2015 Ot 607.84 07/22/2015 Ot 780.79 07/22/2015 Ot V42.7 07/22/2015 Ot V58.69 07/22/2015 Ot 572.8 07/22/2015 Ot 796.4 07/22/2015 Ot V42.7 07/22/2015 Ot 572.8 07/22/2015 Ot 572.8 07/22/2015 Ot 572.8 07/22/2015 Ot 070.54 07/22/2015 Ot 572.8 07/22/2015 Ot 585.3 07/22/2015 Ot 572.8 07/22/2015 Ot 572.8 07/22/2015 Ot 572.8 07/22/2015 Ot 572.8 07/22/2015 Ot 572.8 07/22/2015 Ot 572.8 07/22/2015 Ot V42.7 07/22/2015 Ot 268.9 07/22/2015 Ot 281.1 07/22/2015 Ot 285.9 07/22/2015 Ot 491.21 07/22/2015 Ot 572.8 07/22/2015 Ot 585.3 07/22/2015 Ot V42.7 07/22/2015 Ot V58.69 07/22/2015 Ot 573.8 07/22/2015 Ot 593.9 07/22/2015 Ot 721.3 07/22/2015 Ot V58.69 07/22/2015 Ot 572.8 07/22/2015 Ot V42.7 07/22/2015 Ot 572.8 07/22/2015 Ot 585.3 07/22/2015 Ot 572.8 07/22/2015 Ot 572.8 07/22/2015 Ot 585.3 07/22/2015 Ot 572.8 07/22/2015 Ot 268.9 07/22/2015 Ot 275.2 07/22/2015 Ot 572.8 07/22/2015 Ot 585.3 07/22/2015 Ot V42.7 07/22/2015 Ot V58.69 07/22/2015 Ot 573.8 07/22/2015 Ot 593.9 07/22/2015 Ot 789.09 07/22/2015 RAMESH STARR, PRISCILA Vieira Ot 285.9 07/22/2015 RAMESH STARR, PRISCILA B Ot 572.8 07/22/2015 RAMESH STARR, PRISCILA B Ot 585.9 07/22/2015 ED[place]IO [facility] [place] 572.8 07/22/2015 EDUARDO PALACIO Ot 585.9 07/22/2015 RAMESH STARR, PRISCILA [place] Ot 285.9 07/22/2015 RAMESH STARR, PRISCILA B Ot 572.8 07/22/2015 RAMESH STARR, PRISCILA B Ot 585.9 07/22/2015 EDUARDO PALACIO Ot 572.8 07/22/2015 ASIYA STARR, TEREZA Mathew Ot 572.8 07/22/2015 ASIYA STARR, TEREZA Mathew Ot 585.3 07/22/2015 RAMESH STARR, PRISCILA [place] Ot 268.9 07/22/2015 RAMESH STARR, PRISCILA [place] Ot V42.7 07/22/2015 MARIA LUISA STARR, MICHAEL Joel Ot 780.79 07/22/2015 RAMESH STARR, PRISCILA [place] Ot 585.3 07/22/2015 MARIA LUISA STARR, MICHAEL Joel Ot 719.06 07/22/2015 MARIA LUISA STARR, MICHAEL Joel Ot 719.47 07/22/2015 TEREZA BRADEN MD Ot V42.7 07/22/2015 ASIYA STARR, TEREZA Mathew Ot V58.44 07/22/2015 RAMESH STARR, PRISCILA [place] Ot 268.9 07/22/2015 RAMESH STARR, PRISCILA [place] Ot 276.8 07/22/2015 RAMESH STARR, PRISCILA [place] Ot 585.3 07/22/2015 RAMESH STARR, PRISCILA [place] Ot 588.81 07/22/2015 MARIA LUISA STARR, MICHAEL J Ot 275.41 07/22/2015 MARIA LUISA STARR, MICHAEL J Ot 276.9 07/22/2015 MARIA LUISA STARR, MICHAEL J Ot 427.89 07/22/2015 ASIYA STARR, TEREZA Mathew Ot 572.8 07/22/2015 ASIYA STARR, TEREZA Mathew Ot 585.3 07/22/2015 ASIYA STARR, TEREZA Mathew Ot 790.6 07/22/2015 ANGELICA STARR, LOYDA Joel Ot 427.9 07/22/2015 [facility] Ot 585.9 07/22/2015 [facility] J Ot V15.81 07/22/2015 MARIA LUISA STARR, MICHAEL J Ot 721.3 07/22/2015 MARIA LUISA STARR, MICHAEL J Ot 722.10 07/22/2015 MARIA LUISA STARR, MICHAEL J Ot V15.88 07/22/2015 MARIA LUISA STARR, MICHAEL J Ot 722.52 07/22/2015 MARIA LUISA STARR, MICHAEL J Ot 737.30 07/22/2015 Ot 305.1 07/22/2015 Ot 427.9 07/22/2015 Ot 585.9 07/22/2015 Ot 790.29 07/22/2015 Ot V15.81 07/22/2015 RAMESH STARR, PRISCILA [place] Ot 268.9 07/22/2015 RAMESH STARR, PRISCILA [place] Ot 275.2 07/22/2015 RAMESH STARR, PRISCILA [place] Ot 585.3 07/22/2015 RAMESH STARR, PRISCILA [place] Ot 588.81 07/22/2015 RAMESH STARR, PRISCILA [place] Ot 268.9 07/22/2015 RAMESH STARR, PRISCILA [place] Ot 275.2 07/22/2015 RAMESH STARR, PRISCILA [place] Ot 585.3 07/22/2015 Ot 338.29 07/22/2015 Ot 573.9 07/22/2015 Ot 729.82 07/22/2015 Ot V58.69 07/22/2015 Ot 268.9 07/22/2015 Ot 275.2 07/22/2015 Ot 403.90 07/22/2015 Ot 585.3 07/22/2015 MARIA LUISA STARR, MICHAEL J Ot 729.82 07/22/2015 MARIA LUISA STARR, MICHAEL J Ot 780.60 07/22/2015 MARIA LUISA STARR, MICHAEL J Ot V58.69 07/22/2015 ASIYA STARR, TEREZA Mathew Ot 571.5 07/22/2015 ASIYA STARR, TEREZA Mathew Ot V42.7 07/22/2015 MARIA LUISA STARR, MICHAEL J Ot 573.9 07/22/2015 MARIA LUISA STARR, MICHAEL J Ot 780.60 07/22/2015 MARIA LUISA STARR, MICHAEL Joel Ot V42.7 07/22/2015 EDUARDO PALACIO Ot 268.9 07/22/2015 EDUARDO PALACIO Ot 272.4 07/22/2015 EDUARDO PALACIO Ot V42.7 07/22/2015 EDUARDO PALACIO Ot V58.69 07/22/2015 MARIA LUISA STARR, MICHAEL Joel Ot K72.90 07/22/2015 ASIYA STARR, TEREZA Mathew Ot K72.90 07/22/2015 ASIYA STARR, TEREZA Mathew Ot N18.3 07/22/2015 ASIYA STARR, TEREZA Mathew Ot R79.89 07/22/2015 EDUARDO PALACIO Ot Z51.81 07/22/2015 EDUARDO PALACIO Ot Z79.899 07/22/2015 EDUARDO PALACIO Ot Z94.4 07/22/2015 Ot 573.8 07/22/2015 Ot 593.9 07/22/2015 Ot 789.09 07/22/2015 Ot 305.1 07/22/2015 Ot 427.9 07/22/2015 Ot 585.9 07/22/2015 Ot 790.29 07/22/2015 Ot V15.81 07/22/2015 MARIA LUISA STARR, MICHAEL Joel Ot K72.90 07/22/2015 ASIYA STARR, TEREZA Mathew Ot K72.90 07/22/2015 ASIYA STARR, TEREZA Mathew Ot N18.3 07/22/2015 ASIYA STARR, TEREZA Mathew Ot R79.89 07/22/2015 EDUARDO PALACIO Ot Z51.81 07/22/2015 EDUARDO PALACIO Ot Z79.899 07/22/2015 EDUARDO PALACOI Ot Z94.4 07/24/2015 MARIA LUISA STARR, MICHAEL Joel Ot B49 UNSPECIFIED MYCOSIS 07/24/2015 MARIA LUISA STARR, MICHAEL Joel Ot 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 07/24/2015 MARIA LUISA STARR, MICHAEL Joel Ot F17.210 NICOTINE DEPENDENCE, CIGARETTES, UNCOMPL 07/24/2015 MARIA LUISA STARR, MICHAEL Joel Ot G89.29 OTHER CHRONIC PAIN 07/24/2015 MARIA LUISA STARR, MICHAEL Joel Ot J16.8 PNEUMONIA DUE TO OTHER SPECIFIED INFECTI 07/24/2015 MARIA LUISA STARR, MICHAEL Joel Ot J44.9 CHRONIC OBSTRUCTIVE PULMONARY DISEASE, U 07/24/2015 MARIA LUISA STARR, MICHAEL Joel Ot K72.90 HEPATIC FAILURE, UNSPECIFIED WITHOUT COM 07/24/2015 MARIA LUISA STARR, MICHAEL Joel Ot Z66 DO NOT RESUSCITATE 07/24/2015 MARIA LUISA STARR, MICHAEL Joel Ot Z85.05 PERSONAL HISTORY OF MALIGNANT NEOPLASM O 07/24/2015 MARIA LUISA STARR, MICHAEL Joel Ot Z94.4 LIVER TRANSPLANT STATUS 07/29/2015 MARIA LUISA STARR, MICHAEL Joel Ot K72.90 HEPATIC FAILURE, UNSPECIFIED WITHOUT COM 08/10/2015 MARIA LUISA STARR, MICHAEL Joel Ot F17.210 08/10/2015 MARIA LUISA STARR, MICHAEL Joel Ot R05 08/10/2015 MARIA LUISA STARR, MICHEAL Joel Ot R10.9 08/10/2015 MARIA LUISA STARR, MICHAEL Joel Ot R91.1 08/12/2015 MARIA LUISA STARR, MICHAEL Joel Ot F17.210 08/12/2015 MARIA LUISA STARR, MICHAEL Joel Ot R05 08/12/2015 MARIA LUISA STARR, MICHAEL Joel Ot R10.9 08/12/2015 MICHAEL GLASS MD Ot R91.1 08/13/2015 STANLEY DO, MARJAN Ot B49 08/13/2015 STANLEY DO, MARJAN Ot R91.8 08/13/2015 STANLEY DO, MARJAN Ot Z94.4 09/27/2015 EDUARDO PALACIO Ot Z51.81 09/27/2015 EDUARDO PALACIO Ot Z79.899 09/27/2015 EDUARDO PALACIO Ot Z94.4 09/27/2015 TEREZA BRADEN MD Ot K72.90 09/27/2015 TEREZA BRADEN MD Ot N18.3 09/27/2015 ASIYA STARR, TEREZA Mathew Ot R79.89 09/28/2015 ASIYA STARR, TEREZA Mathew Ot K72.90 09/28/2015 ASIYA STARR, TEREZA Mathew Ot N18.3 09/28/2015 ASIYA STARR, TEREZA Mathew Ot R79.89 09/29/2015 ASIYA STARR, TEREZA Mathew Ot K72.90 09/29/2015 ASIYA STARR, TEREZA Mathew Ot N18.3 09/29/2015 ASIYA STARR, TEREAZ Mathew Ot R79.89 10/13/2015 EDUARDO PALACIO Ot Z51.81 10/13/2015 EDUARDO PALACIO Ot Z79.899 10/13/2015 EDUARDO PALACIO Ot Z94.4 10/19/2015 ASIYA STARR, TEREZA Mathew Ot K72.90 10/19/2015 ASIYA STARR, TEREZA Mathew Ot N18.3 10/19/2015 ASIYA STARR, TEREZA Mathew Ot R79.89 10/21/2015 EDUARDO PALACIO Ot Z51.81 10/21/2015 EDUARDO PALACIO Ot Z79.899 10/21/2015 EDUARDO PALACIO Ot Z94.4 10/27/2015 Ot V42.7 LIVER TRANSPLANT STATUS 10/27/2015 Ot V58.44 AFTERCARE FOLLOWING ORGAN TRANSPLANT 10/27/2015 Ot V58.69 OTH MED,LT, CURRENT USE 10/27/2015 Ot 571.5 CIRRHOSIS OF LIVER NOS 10/27/2015 Ot 786.9 RESP SYS/ CHEST SYMP NEC 10/27/2015 Ot 276.7 HYPERPOTASSEMIA 10/27/2015 Ot 285.9 ANEMIA NOS 10/27/2015 Ot 572.8 OTH SEQUELA, CHR LILIANA DIS 10/27/2015 Ot 276.7 HYPERPOTASSEMIA 10/27/2015 Ot 571.2 ALCOHOL CIRRHOSIS LIVER 10/27/2015 Ot 572.8 OTH SEQUELA, CHR LILIANA DIS 10/27/2015 Ot 276.7 HYPERPOTASSEMIA 10/27/2015 Ot 571.2 ALCOHOL CIRRHOSIS LIVER 10/27/2015 Ot 572.8 OTH SEQUELA, CHR LILIANA DIS 10/27/2015 Ot 572.8 OTH SEQUELA, CHR LILIANA DIS 10/27/2015 Ot 586 RENAL FAILURE NOS 10/27/2015 Ot 572.8 OTH SEQUELA, CHR LILIANA DIS 10/27/2015 Ot 572.8 OTH SEQUELA, CHR LILIANA DIS 10/27/2015 Ot 572.8 OTH SEQUELA, CHR LILIANA DIS 10/27/2015 Ot 276.7 HYPERPOTASSEMIA 10/27/2015 Ot 571.2 ALCOHOL CIRRHOSIS LIVER 10/27/2015 Ot 572.8 OTH SEQUELA, CHR LILIANA DIS 10/27/2015 Ot 572.8 OTH SEQUELA, CHR LILIANA DIS 10/27/2015 Ot 572.8 OTH SEQUELA, CHR LILIANA DIS 10/27/2015 Ot 572.8 OTH SEQUELA, CHR LILIANA DIS 10/27/2015 Ot 276.7 HYPERPOTASSEMIA 10/27/2015 Ot 572.8 OTH SEQUELA, CHR LILIANA DIS 10/27/2015 Ot 572.8 OTH SEQUELA, CHR LILIANA DIS 10/27/2015 Ot 572.8 OTH SEQUELA, CHR LILIANA DIS 10/27/2015 Ot 572.8 OTH SEQUELA, CHR LILIANA DIS 10/27/2015 Ot 572.8 OTH SEQUELA, CHR LILIANA DIS 10/27/2015 Ot 572.8 OTH SEQUELA, CHR LILIANA DIS 10/27/2015 Ot 572.8 OTH SEQUELA, CHR LILIANA DIS 10/27/2015 Ot 572.8 OTH SEQUELA, CHR LILIANA DIS 10/27/2015 Ot 572.8 OTH SEQUELA, CHR LILIANA DIS 10/27/2015 Ot 572.8 OTH SEQUELA, CHR LILIANA DIS 10/27/2015 Ot 572.8 OTH SEQUELA, CHR LILIANA DIS 10/27/2015 Ot 572.8 OTH SEQUELA, CHR LILIANA DIS 10/27/2015 Ot 572.8 OTH SEQUELA, CHR LILIANA DIS 10/27/2015 Ot 572.8 OTH SEQUELA, CHR LILIANA DIS 10/27/2015 Ot 572.8 OTH SEQUELA, CHR LILIANA DIS 10/27/2015 Ot 572.8 OTH SEQUELA, CHR LILIANA DIS 10/27/2015 Ot 572.8 OTH SEQUELA, CHR LILIANA DIS 10/27/2015 Ot 572.8 OTH SEQUELA, CHR LILIANA DIS 10/27/2015 Ot 572.8 OTH SEQUELA, CHR LILIANA DIS 10/27/2015 Ot 572.8 OTH SEQUELA, CHR LILIANA DIS 10/27/2015 Ot 285.9 ANEMIA NOS 10/27/2015 Ot 572.8 OTH SEQUELA, CHR LILIANA DIS 10/27/2015 Ot 585.6 END STAGE RENAL DISEASE 10/27/2015 Ot V42.7 LIVER TRANSPLANT STATUS 10/27/2015 Ot 572.8 OTH SEQUELA, CHR LILIANA DIS 10/27/2015 Ot 572.8 OTH SEQUELA, CHR LILIANA DIS 10/27/2015 Ot 572.8 OTH SEQUELA, [facility] LILIANA DIS 10/27/2015 Ot 585.9 CHRONIC KIDNEY DISEASE, UNSPECIFIED 10/27/2015 Ot 572.8 OTH SEQUELA, [facility] LILIANA DIS 10/27/2015 Ot 572.8 OTH SEQUELA, [facility] DIS 10/27/2015 Ot 572.8 OTH SEQUELA, [facility] DIS 10/27/2015 Ot 572.8 OTH SEQUELA, [facility] DIS 10/27/2015 Ot 276.8 HYPOPOTASSEMIA 10/27/2015 Ot 572.8 OTH SEQUELA, [facility] LILIANA DIS 10/27/2015 Ot 585.3 CHRONIC KIDNEY DISEASE, STAGE III (MODER 10/27/2015 Ot 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 10/27/2015 Ot 571.5 CIRRHOSIS OF LIVER NOS 10/27/2015 Ot V42.7 LIVER TRANSPLANT STATUS 10/27/2015 Ot 572.8 OTH SEQUELA, [facility] DIS 10/27/2015 Ot 585.3 CHRONIC KIDNEY DISEASE, STAGE III (MODER 10/27/2015 Ot 285.9 ANEMIA NOS 10/27/2015 Ot 585.3 CHRONIC KIDNEY DISEASE, STAGE III (MODER 10/27/2015 Ot 572.8 OTH SEQUELA, CHR LILIANA DIS 10/27/2015 Ot 572.8 OTH SEQUELA, CHR LILIANA DIS 10/27/2015 Ot 572.8 OTH SEQUELA, CHR LILIANA DIS 10/27/2015 Ot 585.3 CHRONIC KIDNEY DISEASE, STAGE III (MODER 10/27/2015 Ot 572.8 OTH SEQUELA, CHR LILIANA DIS 10/27/2015 Ot 572.8 OTH SEQUELA, CHR LILIANA DIS 10/27/2015 Ot 070.54 CHRONIC HEPATITIS C W/O HEPATIC COMA 10/27/2015 Ot 285.9 ANEMIA NOS 10/27/2015 Ot 491.20 OBSTR CHRONIC BRONCHITIS, W/O EXACERBATI 10/27/2015 Ot 572.8 OTH SEQUELA, CHR LILIANA DIS 10/27/2015 Ot 585.9 CHRONIC KIDNEY DISEASE, UNSPECIFIED 10/27/2015 Ot V42.7 LIVER TRANSPLANT STATUS 10/27/2015 Ot 572.8 OTH SEQUELA, CHR LILIANA DIS 10/27/2015 Ot 572.8 OTH SEQUELA, CHR LILIANA DIS 10/27/2015 Ot 585.9 CHRONIC KIDNEY DISEASE, UNSPECIFIED 10/27/2015 Ot 572.8 OTH SEQUELA, CHR LILIANA DIS 10/27/2015 Ot 585.9 CHRONIC KIDNEY DISEASE, UNSPECIFIED 10/27/2015 Ot 572.8 OTH SEQUELA, CHR LILIANA DIS 10/27/2015 Ot 585.3 CHRONIC KIDNEY DISEASE, STAGE III (MODER 10/27/2015 Ot 572.8 OTH SEQUELA, CHR LILIANA DIS 10/27/2015 Ot 572.8 OTH SEQUELA, CHR LILIANA DIS 10/27/2015 Ot 285.9 ANEMIA NOS 10/27/2015 Ot 496 CHR AIRWAY OBSTRUCT NEC 10/27/2015 Ot 572.8 OTH SEQUELA, CHR LILIANA DIS 10/27/2015 Ot 607.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, ORGANIC ORIGN 10/27/2015 Ot 780.79 OTH MALAISE FATIGUE 10/27/2015 Ot V42.7 LIVER TRANSPLANT STATUS 10/27/2015 Ot V58.69 OTH MED,LT, CURRENT USE 10/27/2015 Ot 572.8 OTH SEQUELA, CHR LILIANA DIS 10/27/2015 Ot 796.4 ABN CLINICAL FINDING NEC 10/27/2015 Ot V42.7 LIVER TRANSPLANT STATUS 10/27/2015 Ot 572.8 OTH SEQUELA, CHR LILIANA DIS 10/27/2015 Ot 572.8 OTH SEQUELA, CHR LILIANA DIS 10/27/2015 Ot 572.8 OTH SEQUELA, [facility] LILIANA DIS 10/27/2015 Ot 070.54 CHRONIC HEPATITIS C W/O HEPATIC COMA 10/27/2015 Ot 572.8 OTH SEQUELA, CHR LILIANA DIS 10/27/2015 Ot 585.3 CHRONIC KIDNEY DISEASE, STAGE III (MODER 10/27/2015 Ot 572.8 OTH SEQUELA, CHR LILIANA DIS 10/27/2015 Ot 572.8 OTH SEQUELA, CHR LILIANA DIS 10/27/2015 Ot 572.8 OTH SEQUELA, CHR LILIANA DIS 10/27/2015 Ot 572.8 OTH SEQUELA, CHR LILIANA DIS 10/27/2015 Ot 572.8 OTH SEQUELA, CHR LILIANA DIS 10/27/2015 Ot 572.8 OTH SEQUELA, CHR LILIANA DIS 10/27/2015 Ot V42.7 LIVER TRANSPLANT STATUS 10/27/2015 Ot 268.9 VITAMIN D DEFICIENCY NOS 10/27/2015 Ot 281.1 B12 DEFIC ANEMIA NEC 10/27/2015 Ot 285.9 ANEMIA NOS 10/27/2015 Ot 491.21 OBSTR CHRONIC BRONCHITIS, W (ACUTE) EXAC 10/27/2015 Ot 572.8 OTH SEQUELA, CHR LILIANA DIS 10/27/2015 Ot 585.3 CHRONIC KIDNEY DISEASE, STAGE III (MODER 10/27/2015 Ot V42.7 LIVER TRANSPLANT STATUS 10/27/2015 Ot V58.69 OTH MED,LT, CURRENT USE 10/27/2015 Ot 573.8 LIVER DISORDERS NEC 10/27/2015 Ot 593.9 RENAL URETERAL DIS NOS 10/27/2015 Ot 721.3 LUMBOSACRAL SPONDYLOSIS 10/27/2015 Ot V58.69 OTH MED,LT, CURRENT USE 10/27/2015 Ot 572.8 OTH SEQUELA, CHR LILIANA DIS 10/27/2015 Ot V42.7 LIVER TRANSPLANT STATUS 10/27/2015 Ot 572.8 OTH SEQUELA, CHR LILIANA DIS 10/27/2015 Ot 585.3 CHRONIC KIDNEY DISEASE, STAGE III (MODER 10/27/2015 Ot 572.8 OTH SEQUELA, CHR LILIANA DIS 10/27/2015 Ot 572.8 OTH SEQUELA, CHR LILIANA DIS 10/27/2015 Ot 585.3 CHRONIC KIDNEY DISEASE, STAGE III (MODER 10/27/2015 Ot 572.8 OTH SEQUELA, CHR LILIANA DIS 10/27/2015 Ot 268.9 VITAMIN D DEFICIENCY NOS 10/27/2015 Ot 275.2 DIS MAGNESIUM METABOLISM 10/27/2015 Ot 572.8 OTH SEQUELA, CHR LILIANA DIS 10/27/2015 Ot 585.3 CHRONIC KIDNEY DISEASE, STAGE III (MODER 10/27/2015 Ot V42.7 LIVER TRANSPLANT STATUS 10/27/2015 Ot V58.69 OTH MED,LT, CURRENT USE 10/27/2015 Ot 573.8 LIVER DISORDERS NEC 10/27/2015 Ot 593.9 RENAL URETERAL DIS NOS 10/27/2015 Ot 789.09 ABDOMINAL PAIN, OTHER SPECIFIED SITE 10/27/2015 RAMESH STARR, PRISCILA Vieira Ot 285.9 ANEMIA NOS 10/27/2015 RAMESH STARR, PRISCILA Vieira Ot 572.8 OTH SEQUELA, CHR LILIANA DIS 10/27/2015 RAMESH STARR, PRISCILA Vieira Ot 585.9 CHRONIC KIDNEY DISEASE, UNSPECIFIED 10/27/2015 EDUARDO PALACIO Ot 572.8 OTH SEQUELA, CHR LILIANA DIS 10/27/2015 EDUARDO PALACIO Ot 585.9 CHRONIC KIDNEY DISEASE, UNSPECIFIED 10/27/2015 RAMESH STARR, PRISCILA Vieira Ot 285.9 ANEMIA NOS 10/27/2015 RAMESH STARR, PRISCILA Vieira Ot 572.8 OTH SEQUELA, CHR LILIANA DIS 10/27/2015 RAMESH STARR, PRISCILA Vieira Ot 585.9 CHRONIC KIDNEY DISEASE, UNSPECIFIED 10/27/2015 EDUARDO PALACIO Ot 572.8 OTH SEQUELA, CHR LILIANA DIS 10/27/2015 TEREZA BRADEN MD Ot 572.8 OTH SEQUELA, CHR LILIANA DIS 10/27/2015 TEREZA BRADEN MD Ot 585.3 CHRONIC KIDNEY DISEASE, STAGE III (MODER 10/27/2015 RAMESH STARR, PRISCILA Vieira Ot 268.9 VITAMIN D DEFICIENCY NOS 10/27/2015 PRISCILA CHANDLER MD Ot V42.7 LIVER TRANSPLANT STATUS 10/27/2015 MARIA LUISA STARR, MICHAEL Joel Ot 780.79 OTH MALAISE FATIGUE 10/27/2015 PRISCILA CHANDLER MD Ot 585.3 CHRONIC KIDNEY DISEASE, STAGE III (MODER 10/27/2015 MARIA LIUSA STARR, MICHAEL Joel Ot 719.06 JOINT EFFUSION-L/LEG 10/27/2015 MARIA LUISA STARR, MICHAEL Joel Ot 719.47 JOINT PAIN-ANKLE 10/27/2015 TEREZA BRADEN MD Ot V42.7 LIVER TRANSPLANT STATUS 10/27/2015 TEREZA BRADEN MD Ot V58.44 AFTERCARE FOLLOWING ORGAN TRANSPLANT 10/27/2015 RAMESH STARR, PRISCILA Vieira Ot 268.9 VITAMIN D DEFICIENCY NOS 10/27/2015 PRISCILA CHANDLER MD Ot 276.8 HYPOPOTASSEMIA 10/27/2015 PRISCILA CHANDLER MD Ot 585.3 CHRONIC KIDNEY DISEASE, STAGE III (MODER 10/27/2015 PRISCILA CHANDLER MD Ot 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 10/27/2015 MARIA LUISA STARR, MICHAEL Joel Ot 275.41 HYPOCALCEMIA 10/27/2015 MICHAEL GLASS MD Ot 276.9 ELECTROLYT/FLUID DIS NEC 10/27/2015 MICHAEL GLASS MD Ot 427.89 CARDIAC DYSRHYTHMIAS NEC 10/27/2015 TEREZA BRADEN MD Ot 572.8 OTH SEQUELA, CHR LILIANA DIS 10/27/2015 TEREZA BRADEN MD Ot 585.3 CHRONIC KIDNEY DISEASE, STAGE III (MODER 10/27/2015 TEREZA BRADEN MD Ot 790.6 ABN BLOOD CHEMISTRY NEC 10/27/2015 ANGELICA STARR, LOYDA Joel Ot 427.9 CARDIAC DYSRHYTHMIA NOS 10/27/2015 LOYDA DOMINGUEZ MD Ot 585.9 CHRONIC KIDNEY DISEASE, UNSPECIFIED 10/27/2015 ANGELICA STARR, LOYDA Joel Ot V15.81 HX OF PAST NONCOMPLIANCE 10/27/2015 MARIA LUISA STARR, MICHAEL Joel Ot 721.3 LUMBOSACRAL SPONDYLOSIS 10/27/2015 MARIA LUISA STARR, MICHAEL Joel Ot 722.10 LUMBAR DISC DISPLACEMENT 10/27/2015 MARIA LUISA STARR, MICHAEL Joel Ot V15.88 HISTORY OF FALL 10/27/2015 MARIA LUISA STARR, MICHAEL Joel Ot 722.52 LUMB/LUMBOSAC DISC DEGEN 10/27/2015 MARIA LUISA STARR, MICHAEL Joel Ot 737.30 IDIOPATHIC SCOLIOSIS 10/27/2015 Ot 305.1 TOBACCO USE DISORDER 10/27/2015 Ot 427.9 CARDIAC DYSRHYTHMIA NOS 10/27/2015 Ot 585.9 CHRONIC KIDNEY DISEASE, UNSPECIFIED 10/27/2015 Ot 790.29 OTHER ABNORMAL GLUCOSE 10/27/2015 Ot V15.81 HX OF PAST NONCOMPLIANCE 10/27/2015 PRISCILA CHANDLER MD Ot 268.9 VITAMIN D DEFICIENCY NOS 10/27/2015 PRISCILA CHANDLER MD Ot 275.2 DIS MAGNESIUM METABOLISM 10/27/2015 RAMESH STARR, PRISCILA Vieira Ot 585.3 CHRONIC KIDNEY DISEASE, STAGE III (MODER 10/27/2015 PRISCILA CHANDLER MD Ot 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 10/27/2015 PRISCILA CHANDLER MD Ot 268.9 VITAMIN D DEFICIENCY NOS 10/27/2015 RAMESH STARR, PRISCILA Vieira Ot 275.2 DIS MAGNESIUM METABOLISM 10/27/2015 PRISCILA CHANDLER MD Ot 585.3 CHRONIC KIDNEY DISEASE, STAGE III (MODER 10/27/2015 Ot 338.29 OTHER CHRONIC PAIN 10/27/2015 Ot 573.9 LIVER DISORDER NOS 10/27/2015 Ot 729.82 CRAMP IN LIMB 10/27/2015 Ot V58.69 OTH MED,LT, CURRENT USE 10/27/2015 Ot 268.9 VITAMIN D DEFICIENCY NOS 10/27/2015 Ot 275.2 DIS MAGNESIUM METABOLISM 10/27/2015 Ot 403.90 HYPTNSV CHR KID DIS, UNSPEC, W CHR KD ST 10/27/2015 Ot 585.3 CHRONIC KIDNEY DISEASE, STAGE III (MODER 10/27/2015 MICHAEL GLASS MD Ot 729.82 CRAMP IN LIMB 10/27/2015 MICHAEL GLASS MD Ot 780.60 FEVER, UNSPECIFIED 10/27/2015 MICHAEL GLASS MD Ot V58.69 OTH MED,LT,CURRENT USE 10/27/2015 TEREZA BRADEN MD Ot 571.5 CIRRHOSIS OF LIVER NOS 10/27/2015 TEREZA BRADEN MD Ot V42.7 LIVER TRANSPLANT STATUS 10/27/2015 MICHAEL GLASS MD Ot 573.9 LIVER DISORDER NOS 10/27/2015 MICHAEL GLASS MD Ot 780.60 FEVER, UNSPECIFIED 10/27/2015 MICHAEL GLASS MD Ot V42.7 LIVER TRANSPLANT STATUS 10/27/2015 EDUARDO PALACIO Ot 268.9 VITAMIN D DEFICIENCY NOS 10/27/2015 EDUARDO PALACIO Ot 272.4 HYPERLIPIDEMIA NEC/NOS 10/27/2015 EDUARDO PALACIO Ot V42.7 LIVER TRANSPLANT STATUS 10/27/2015 EDUARDO PALACIO Ot V58.69 OTH MED,LT,CURRENT USE 10/27/2015 TEREZA BRADEN MD Ot K72.90 HEPATIC FAILURE, UNSPECIFIED WITHOUT COM 10/27/2015 ASIYA STARR, TEREZA Mathew Ot N18.3 CHRONIC KIDNEY DISEASE, STAGE 3 (MODERAT 10/27/2015 TEREZA BRADEN MD Ot R79.89 OTHER SPECIFIED ABNORMAL FINDINGS OF BLO 10/27/2015 EDUARDO PALACIO Ot Z51.81 ENCOUNTER FOR THERAPEUTIC DRUG LEVEL MON 10/27/2015 EDUARDO PALACIO Ot Z79.899 OTHER RENTAL MANAGEMENT TRAINEE (CURRENT) DRUG THERAPY 10/27/2015 EDUARDO PALACIO Ot Z94.4 LIVER TRANSPLANT STATUS 10/27/2015 MARIA LUISA STARR, MICHAEL Joel Ot F17.210 NICOTINE DEPENDENCE, CIGARETTES, UNCOMPL 10/27/2015 MICHAEL GLASS MD Ot R05 COUGH 10/27/2015 MICHAEL GLASS MD Ot R10.9 UNSPECIFIED ABDOMINAL PAIN 10/27/2015 MICHAEL GLASS MD Ot R91.1 SOLITARY PULMONARY NODULE 10/27/2015 MARJAN STANLEY DO Ot B49 UNSPECIFIED MYCOSIS 10/27/2015 MARJAN STANLEY DO Ot R91.8 OTHER NONSPECIFIC ABNORMAL FINDING OF BRENT 10/27/2015 MARJAN STANLEY DO Ot Z94.4 LIVER TRANSPLANT STATUS 10/27/2015 MICHAEL GLASS MD Ot K72.90 HEPATIC FAILURE, UNSPECIFIED WITHOUT COM 11/01/2015 KIMBERLEY HILL DO Ot J44.9 CHRONIC OBSTRUCTIVE PULMONARY DISEASE, U 11/01/2015 KIMBERLEY HILL DO Ot R91.8 OTHER NONSPECIFIC ABNORMAL FINDING OF BRENT 11/01/2015 KIMBERLEY HILL DO Ot J44.9 CHRONIC OBSTRUCTIVE PULMONARY DISEASE, U 11/01/2015 KIMBERLEY HILL DO Ot R91.8 OTHER NONSPECIFIC ABNORMAL FINDING OF BRENT 11/02/2015 MICHAEL GLASS MD Ot K72.90 HEPATIC FAILURE, UNSPECIFIED WITHOUT COM 11/03/2015 MICHAEL GLASS MD Ot K72.90 HEPATIC FAILURE, UNSPECIFIED WITHOUT COM 11/10/2015 RAMESH STARR, PRISCILA Vieira Ot E55.9 VITAMIN D DEFICIENCY, UNSPECIFIED 11/10/2015 PRISCILA CHANDLER MD Ot E83.42 HYPOMAGNESEMIA 11/10/2015 PRISCILA CHANDLER MD Ot K72.90 HEPATIC FAILURE, UNSPECIFIED WITHOUT COM 11/10/2015 RAMESH MD, PRISCILA B Ot N18.3 CHRONIC KIDNEY DISEASE, STAGE 3 (MODERAT 11/10/2015 KIMBERLEY HILL DO Ot J44.9 CHRONIC OBSTRUCTIVE PULMONARY DISEASE, U 11/10/2015 KIMBERLEY HILL DO Ot R91.8 OTHER NONSPECIFIC ABNORMAL FINDING OF BRENT 11/17/2015 MARIA LUISA STARR, MICHAEL Joel Ot K72.90 HEPATIC FAILURE, UNSPECIFIED WITHOUT COM 11/23/2015 TEREZA BRADEN MD Ot K72.90 HEPATIC FAILURE, UNSPECIFIED WITHOUT COM 11/23/2015 TEREZA BRADEN MD Ot N18.3 CHRONIC KIDNEY DISEASE, STAGE 3 (MODERAT 11/23/2015 TEREZA BRADEN MD Ot R79.89 OTHER SPECIFIED ABNORMAL FINDINGS OF BLO 11/23/2015 EDUARDO PALACIO Ot Z51.81 ENCOUNTER FOR THERAPEUTIC DRUG LEVEL MON 11/23/2015 EDUARDO PALACIO Ot Z79.899 OTHER CARE HOME (CURRENT) DRUG THERAPY 11/23/2015 EDUARDO PALACIO Ot Z94.4 LIVER TRANSPLANT STATUS 11/23/2015 MARIA LUISA STARR, MICHAEL Joel Ot K72.90 HEPATIC FAILURE, UNSPECIFIED WITHOUT COM 12/01/2015 RAMESH STARR, PRISCILA Vieira Ot E55.9 VITAMIN D DEFICIENCY, UNSPECIFIED 12/01/2015 PRISCILA CHANDLER MD Ot E83.42 HYPOMAGNESEMIA 12/01/2015 PRISCILA CHANDLER MD Ot K72.90 HEPATIC FAILURE, UNSPECIFIED WITHOUT COM 12/01/2015 PRISCILA CHANDLER MD Ot N18.3 CHRONIC KIDNEY DISEASE, STAGE 3 (MODERAT 12/26/2015 TEREZA BRADEN MD Ot K72.90 HEPATIC FAILURE, UNSPECIFIED WITHOUT COM 12/26/2015 TEREZA BRADEN MD Ot N18.3 CHRONIC KIDNEY DISEASE, STAGE 3 (MODERAT 12/26/2015 TEREZA BRADEN MD Ot R79.89 OTHER SPECIFIED ABNORMAL FINDINGS OF BLO 12/26/2015 EDUARDO PALACIO Ot Z51.81 ENCOUNTER FOR THERAPEUTIC DRUG LEVEL MON 12/26/2015 EDUARDO PALACIO Ot Z79.899 OTHER RENTAL MANAGEMENT TRAINEE (CURRENT) DRUG THERAPY 12/26/2015 EDUARDO PALACIO Ot Z94.4 LIVER TRANSPLANT STATUS 12/27/2015 TEREZA BRADEN MD, Ot K74.60 UNSPECIFIED CIRRHOSIS OF LIVER 01/21/2016 TEREZA BRADEN MD Ot K72.90 HEPATIC FAILURE, UNSPECIFIED WITHOUT COM 01/21/2016 TEREZA BRADEN MD, Ot N18.3 CHRONIC KIDNEY DISEASE, STAGE 3 (MODERAT 01/21/2016 TEREZA BRADEN MD Ot R79.89 OTHER SPECIFIED ABNORMAL FINDINGS OF BLO 01/24/2016 TEREZA BRADEN MD Ot K72.90 HEPATIC FAILURE, UNSPECIFIED WITHOUT COM 01/24/2016 TEREZA BRADEN MD, Ot N18.3 CHRONIC KIDNEY DISEASE, STAGE 3 (MODERAT 01/24/2016 TEREAZ BRADEN MD Ot R79.89 OTHER SPECIFIED ABNORMAL FINDINGS OF BLO 01/31/2016 MICHAEL GLASS MD Ot K72.90 HEPATIC FAILURE, UNSPECIFIED WITHOUT COM 02/01/2016 TEREZA BRADEN MD, Ot K72.90 HEPATIC FAILURE, UNSPECIFIED WITHOUT COM 02/01/2016 TEREZA BRADEN MD, Ot N18.3 CHRONIC KIDNEY DISEASE, STAGE 3 (MODERAT 02/01/2016 TEREZA BRADEN MD Ot R79.89 OTHER SPECIFIED ABNORMAL FINDINGS OF BLO 03/17/2016 TEREZA BRADEN MD Ot K72.90 HEPATIC FAILURE, UNSPECIFIED WITHOUT COM 03/17/2016 TEREZA BRADEN MD, Ot N18.3 CHRONIC KIDNEY DISEASE, STAGE 3 (MODERAT 03/17/2016 TEREZA BRADEN MD Ot R79.89 OTHER SPECIFIED ABNORMAL FINDINGS OF BLO 04/20/2016 TEREZA BRADEN MD Ot K72.90 HEPATIC FAILURE, UNSPECIFIED WITHOUT COM 04/20/2016 TEREZA BRADEN MD, Ot N18.3 CHRONIC KIDNEY DISEASE, STAGE 3 (MODERAT 04/20/2016 TEREZA BRADEN MD Ot R79.89 OTHER SPECIFIED ABNORMAL FINDINGS OF BLO 04/21/2016 TEREZA BRADEN MD, Ot K72.90 HEPATIC FAILURE, UNSPECIFIED WITHOUT COM 04/21/2016 TEREZA BRADEN MD, Ot N18.3 CHRONIC KIDNEY DISEASE, STAGE 3 (MODERAT 04/21/2016 TEREZA BRADEN MD Ot R79.89 OTHER SPECIFIED ABNORMAL FINDINGS OF BLO 05/24/2016 RAMESH STARR, PRISCILA Vieira Ot E55.9 VITAMIN D DEFICIENCY, UNSPECIFIED 05/24/2016 RAMESH STARR, PRISCILA Vieira Ot E83.42 HYPOMAGNESEMIA 05/24/2016 RAMESH STARR, PRISCILA Vieira Ot K72.90 HEPATIC FAILURE, UNSPECIFIED WITHOUT COM 05/24/2016 RAMESH STARR, PRISCILA Vieira Ot K74.60 UNSPECIFIED CIRRHOSIS OF LIVER 05/24/2016 RAMESH STARR, PRISCILA Vieira Ot N18.3 CHRONIC KIDNEY DISEASE, STAGE 3 (MODERAT 05/24/2016 RAMESH STARR, PRISCILA Vieira Ot 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 O 05/24/2016 RAMESH STARR, PRISCILA Vieira Ot R79.89 OTHER SPECIFIED ABNORMAL FINDINGS OF BLO 05/25/2016 TEREZA BRADEN MD Ot K74.60 UNSPECIFIED CIRRHOSIS OF LIVER 06/06/2016 TEREZA BRADEN MD Ot K74.60 UNSPECIFIED CIRRHOSIS OF LIVER 06/07/2016 TEREZA BRADEN MD Ot K72.90 HEPATIC FAILURE, UNSPECIFIED WITHOUT COM 06/07/2016 TEREZA BRADEN MD Ot N18.3 CHRONIC KIDNEY DISEASE, STAGE 3 (MODERAT 06/07/2016 TEREZA BRADEN MD Ot R79.89 OTHER SPECIFIED ABNORMAL FINDINGS OF BLO 06/26/2016 Ot V42.7 LIVER TRANSPLANT STATUS 06/26/2016 Ot V58.44 AFTERCARE FOLLOWING ORGAN TRANSPLANT 06/26/2016 Ot V58.69 OTH MED,LT, CURRENT USE 06/26/2016 Ot 572.8 OTH SEQUELA, CHR LILIANA DIS 06/26/2016 Ot 572.8 OTH SEQUELA, CHR LILIANA DIS 06/26/2016 Ot 572.8 OTH SEQUELA, CHR LILIANA DIS 06/26/2016 Ot 572.8 OTH SEQUELA, CHR LILIANA DIS 06/26/2016 Ot 572.8 OTH SEQUELA, CHR LILIANA DIS 06/26/2016 Ot 572.8 OTH SEQUELA, CHR LILIANA DIS 06/26/2016 Ot 572.8 OTH SEQUELA, CHR LILIANA DIS 06/26/2016 Ot 572.8 OTH SEQUELA, CHR LILIANA DIS 06/26/2016 Ot 572.8 OTH SEQUELA, CHR LILIANA DIS 06/26/2016 Ot 285.9 ANEMIA NOS 06/26/2016 Ot 572.8 OTH SEQUELA, CHR LILIANA DIS 06/26/2016 Ot 585.6 END STAGE RENAL DISEASE 06/26/2016 Ot V42.7 LIVER TRANSPLANT STATUS 06/26/2016 Ot 572.8 OTH SEQUELA, CHR LILIANA DIS 06/26/2016 Ot 572.8 OTH SEQUELA, CHR LILIANA DIS 06/26/2016 Ot 572.8 OTH SEQUELA, CHR LILIANA DIS 06/26/2016 Ot 585.9 CHRONIC KIDNEY DISEASE, UNSPECIFIED 06/26/2016 Ot 572.8 OTH SEQUELA, CHR LILIANA DIS 06/26/2016 Ot 572.8 OTH SEQUELA, CHR LILIANA DIS 06/26/2016 Ot 572.8 OTH SEQUELA, CHR LILIANA DIS 06/26/2016 Ot 572.8 OTH SEQUELA, CHR LILIANA DIS 06/26/2016 Ot 276.8 HYPOPOTASSEMIA 06/26/2016 Ot 572.8 OTH SEQUELA, CHR LILIANA DIS 06/26/2016 Ot 585.3 CHRONIC KIDNEY DISEASE, STAGE III (MODER 06/26/2016 Ot 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 06/26/2016 Ot 571.5 CIRRHOSIS OF LIVER NOS 06/26/2016 Ot V42.7 LIVER TRANSPLANT STATUS 06/26/2016 Ot 572.8 OTH SEQUELA, CHR LILIANA DIS 06/26/2016 Ot 585.3 CHRONIC KIDNEY DISEASE, STAGE III (MODER 06/26/2016 Ot 285.9 ANEMIA NOS 06/26/2016 Ot 585.3 CHRONIC KIDNEY DISEASE, STAGE III (MODER 06/26/2016 Ot 572.8 OTH SEQUELA, CHR LILIANA DIS 06/26/2016 Ot 572.8 OTH SEQUELA, CHR LILIANA DIS 06/26/2016 Ot 572.8 OTH SEQUELA, CHR LILIANA DIS 06/26/2016 Ot 585.3 CHRONIC KIDNEY DISEASE, STAGE III (MODER 06/26/2016 Ot 572.8 OTH SEQUELA, CHR LILIANA DIS 06/26/2016 Ot 572.8 OTH SEQUELA, CHR LILIANA DIS 06/26/2016 Ot 070.54 CHRONIC HEPATITIS C W/O HEPATIC COMA 06/26/2016 Ot 285.9 ANEMIA NOS 06/26/2016 Ot 491.20 OBSTR CHRONIC BRONCHITIS, W/O EXACERBATI 06/26/2016 Ot 572.8 OTH SEQUELA, CHR LILIANA DIS 06/26/2016 Ot 585.9 CHRONIC KIDNEY DISEASE, UNSPECIFIED 06/26/2016 Ot V42.7 LIVER TRANSPLANT STATUS 06/26/2016 Ot 572.8 OTH SEQUELA, CHR LILIANA DIS 06/26/2016 Ot 572.8 OTH SEQUELA, CHR LILIANA DIS 06/26/2016 Ot 585.9 CHRONIC KIDNEY DISEASE, UNSPECIFIED 06/26/2016 Ot 572.8 OTH SEQUELA, CHR LILIANA DIS 06/26/2016 Ot 585.9 CHRONIC KIDNEY DISEASE, UNSPECIFIED 06/26/2016 Ot 572.8 OTH SEQUELA, CHR LILIANA DIS 06/26/2016 Ot 585.3 CHRONIC KIDNEY DISEASE, STAGE III (MODER 06/26/2016 Ot 572.8 OTH SEQUELA, CHR LILIANA DIS 06/26/2016 Ot 572.8 OTH SEQUELA, CHR LILIANA DIS 06/26/2016 Ot 285.9 ANEMIA NOS 06/26/2016 Ot 496 CHR AIRWAY OBSTRUCT NEC 06/26/2016 Ot 572.8 OTH SEQUELA, CHR LILIANA DIS 06/26/2016 Ot 607.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, ORGANIC ORIGN 06/26/2016 Ot 780.79 OTH MALAISE FATIGUE 06/26/2016 Ot V42.7 LIVER TRANSPLANT STATUS 06/26/2016 Ot V58.69 OTH MED,LT, CURRENT USE 06/26/2016 Ot 572.8 OTH SEQUELA, CHR LILIANA DIS 06/26/2016 Ot 796.4 ABN CLINICAL FINDING NEC 06/26/2016 Ot V42.7 LIVER TRANSPLANT STATUS 06/26/2016 Ot 572.8 OTH SEQUELA, CHR LILIANA DIS 06/26/2016 Ot 572.8 OTH SEQUELA, CHR LILIANA DIS 06/26/2016 Ot 572.8 OTH SEQUELA, CHR LILIANA DIS 06/26/2016 Ot 070.54 CHRONIC HEPATITIS C W/O HEPATIC COMA 06/26/2016 Ot 572.8 OTH SEQUELA, CHR LILIANA DIS 06/26/2016 Ot 585.3 CHRONIC KIDNEY DISEASE, STAGE III (MODER 06/26/2016 Ot 572.8 OTH SEQUELA, CHR LILIANA DIS 06/26/2016 Ot 572.8 OTH SEQUELA, CHR LILIANA DIS 06/26/2016 Ot 572.8 OTH SEQUELA, CHR LILIANA DIS 06/26/2016 Ot 572.8 OTH SEQUELA, CHR LILIANA DIS 06/26/2016 Ot 572.8 OTH SEQUELA, CHR LILIANA DIS 06/26/2016 Ot 572.8 OTH SEQUELA, CHR LILIANA DIS 06/26/2016 Ot V42.7 LIVER TRANSPLANT STATUS 06/26/2016 Ot 268.9 VITAMIN D DEFICIENCY NOS 06/26/2016 Ot 281.1 B12 DEFIC ANEMIA NEC 06/26/2016 Ot 285.9 ANEMIA NOS 06/26/2016 Ot 491.21 OBSTR CHRONIC BRONCHITIS, W (ACUTE) EXAC 06/26/2016 Ot 572.8 OTH SEQUELA, CHR LILIANA DIS 06/26/2016 Ot 585.3 CHRONIC KIDNEY DISEASE, STAGE III (MODER 06/26/2016 Ot V42.7 LIVER TRANSPLANT STATUS 06/26/2016 Ot V58.69 OTH MED,LT, CURRENT USE 06/26/2016 Ot 573.8 LIVER DISORDERS NEC 06/26/2016 Ot 593.9 RENAL URETERAL DIS NOS 06/26/2016 Ot 721.3 LUMBOSACRAL SPONDYLOSIS 06/26/2016 Ot V58.69 OTH MED,LT, CURRENT USE 06/26/2016 Ot 572.8 OTH SEQUELA, CHR LILIANA DIS 06/26/2016 Ot V42.7 LIVER TRANSPLANT STATUS 06/26/2016 Ot 572.8 OTH SEQUELA, CHR LILIANA DIS 06/26/2016 Ot 585.3 CHRONIC KIDNEY DISEASE, STAGE III (MODER 06/26/2016 Ot 572.8 OTH SEQUELA, CHR LILIANA DIS 06/26/2016 Ot 572.8 OTH SEQUELA, CHR LILIANA DIS 06/26/2016 Ot 585.3 CHRONIC KIDNEY DISEASE, STAGE III (MODER 06/26/2016 Ot 572.8 OTH SEQUELA, CHR LILIANA DIS 06/26/2016 Ot 268.9 VITAMIN D DEFICIENCY NOS 06/26/2016 Ot 275.2 DIS MAGNESIUM METABOLISM 06/26/2016 Ot 572.8 OTH SEQUELA, CHR LILIANA DIS 06/26/2016 Ot 585.3 CHRONIC KIDNEY DISEASE, STAGE III (MODER 06/26/2016 Ot V42.7 LIVER TRANSPLANT STATUS 06/26/2016 Ot V58.69 OTH MED,LT, CURRENT USE 06/26/2016 Ot 573.8 LIVER DISORDERS NEC 06/26/2016 Ot 593.9 RENAL URETERAL DIS NOS 06/26/2016 Ot 789.09 ABDOMINAL PAIN, OTHER SPECIFIED SITE 06/26/2016 RAMESH STARR, PRISCILA Vieira Ot 285.9 ANEMIA NOS 06/26/2016 RAMESH STARR, PRISCILA Vieira Ot 572.8 OTH SEQUELA, CHR LILIANA DIS 06/26/2016 RAMESH STARR, PRISCILA Vieira Ot 585.9 CHRONIC KIDNEY DISEASE, UNSPECIFIED 06/26/2016 EDUARDO PALACIO Ot 572.8 OTH SEQUELA, CHR LILIANA DIS 06/26/2016 EDUARDO PALACIOBS Ot 585.9 CHRONIC KIDNEY DISEASE, UNSPECIFIED 06/26/2016 RAMESH STARR, PRISCILA Vieira Ot 285.9 ANEMIA NOS 06/26/2016 RAMESH STARR, PRISCILA Vieira Ot 572.8 OTH SEQUELA, CHR LILIANA DIS 06/26/2016 RAMESH STARR, PRISCILA Vieira Ot 585.9 CHRONIC KIDNEY DISEASE, UNSPECIFIED 06/26/2016 EDUARDO PALACIO Ot 572.8 OTH SEQUELA, CHR LILIANA DIS 06/26/2016 TEREZA BRADEN MD Ot 572.8 OTH SEQUELA, CHR LILIANA DIS 06/26/2016 TEREZA BRADEN MD Ot 585.3 CHRONIC KIDNEY DISEASE, STAGE III (MODER 06/26/2016 RAMESH STARR, PRISCILA Vieira Ot 268.9 VITAMIN D DEFICIENCY NOS 06/26/2016 PRISCILA CHANDLER MD Ot V42.7 LIVER TRANSPLANT STATUS 06/26/2016 MARIA LUISA STARR, MICHAEL Joel Ot 780.79 OTH MALAISE FATIGUE 06/26/2016 PRISCILA CHANDLER MD Ot 585.3 CHRONIC KIDNEY DISEASE, STAGE III (MODER 06/26/2016 MARIA LUISA STARR, MICHAEL Joel Ot 719.06 JOINT EFFUSION-L/LEG 06/26/2016 MARIA LUISA STARR, MICHAEL Joel Ot 719.47 JOINT PAIN-ANKLE 06/26/2016 TEREZA BRADEN MD Ot V42.7 LIVER TRANSPLANT STATUS 06/26/2016 TEREZA BRADEN MD Ot V58.44 AFTERCARE FOLLOWING ORGAN TRANSPLANT 06/26/2016 PRISCILA CHANDLER MD Ot 268.9 VITAMIN D DEFICIENCY NOS 06/26/2016 RAMESH STARR, PRISCILA Vieira Ot 276.8 HYPOPOTASSEMIA 06/26/2016 PRISCILA CHANDLER MD Ot 585.3 CHRONIC KIDNEY DISEASE, STAGE III (MODER 06/26/2016 RAMESH STARR, PRISCILA Vieira Ot 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 06/26/2016 MARIA LUISA STARR, MICHAEL Joel Ot 275.41 HYPOCALCEMIA 06/26/2016 MARIA LUISA STARR, MICHAEL Joel Ot 276.9 ELECTROLYT/FLUID DIS NEC 06/26/2016 MICHAEL GLASS MD Ot 427.89 CARDIAC DYSRHYTHMIAS NEC 06/26/2016 TEREZA BRADEN MD Ot 572.8 OTH SEQUELA, CHR LILIANA DIS 06/26/2016 TEREZA BRADEN MD Ot 585.3 CHRONIC KIDNEY DISEASE, STAGE III (MODER 06/26/2016 TEREZA BRADEN MD Ot 790.6 ABN BLOOD CHEMISTRY NEC 06/26/2016 ANGELICA STARR, LOYDA Joel Ot 427.9 CARDIAC DYSRHYTHMIA NOS 06/26/2016 LOYDA DOMINGUEZ MD Ot 585.9 CHRONIC KIDNEY DISEASE, UNSPECIFIED 06/26/2016 LOYDA DOMINGUEZ MD Ot V15.81 HX OF PAST NONCOMPLIANCE 06/26/2016 MARIA LUISA STARR, MICHAEL Joel Ot 721.3 LUMBOSACRAL SPONDYLOSIS 06/26/2016 MARIA LUISA STARR, MICHAEL Joel Ot 722.10 LUMBAR DISC DISPLACEMENT 06/26/2016 MARIA LUISA STARR, MICHAEL Joel Ot V15.88 HISTORY OF FALL 06/26/2016 MARIA LUISA STARR, MICHAEL Joel Ot 722.52 LUMB/LUMBOSAC DISC DEGEN 06/26/2016 MARIA LUISA STARR, MICHAEL Joel Ot 737.30 IDIOPATHIC SCOLIOSIS 06/26/2016 Ot 305.1 TOBACCO USE DISORDER 06/26/2016 Ot 427.9 CARDIAC DYSRHYTHMIA NOS 06/26/2016 Ot 585.9 CHRONIC KIDNEY DISEASE, UNSPECIFIED 06/26/2016 Ot 790.29 OTHER ABNORMAL GLUCOSE 06/26/2016 Ot V15.81 HX OF PAST NONCOMPLIANCE 06/26/2016 RAMESH STARR, PRISCILA Vieira Ot 268.9 VITAMIN D DEFICIENCY NOS 06/26/2016 PRISCILA CHANDLER MD Ot 275.2 DIS MAGNESIUM METABOLISM 06/26/2016 PRISCILA CHANDLER MD Ot 585.3 CHRONIC KIDNEY DISEASE, STAGE III (MODER 06/26/2016 PRISCILA CHANDLER MD Ot 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 06/26/2016 RAMESH STARR, PRISCILA Vieira Ot 268.9 VITAMIN D DEFICIENCY NOS 06/26/2016 PRISCILA CHANDLER MD Ot 275.2 DIS MAGNESIUM METABOLISM 06/26/2016 PRISCILA CHANDLER MD Ot 585.3 CHRONIC KIDNEY DISEASE, STAGE III (MODER 06/26/2016 Ot 338.29 OTHER CHRONIC PAIN 06/26/2016 Ot 573.9 LIVER DISORDER NOS 06/26/2016 Ot 729.82 CRAMP IN LIMB 06/26/2016 Ot V58.69 OTH MED,LT, CURRENT USE 06/26/2016 Ot 268.9 VITAMIN D DEFICIENCY NOS 06/26/2016 Ot 275.2 DIS MAGNESIUM METABOLISM 06/26/2016 Ot 403.90 HYPTNSV CHR KID DIS, UNSPEC, W CHR KD ST 06/26/2016 Ot 585.3 CHRONIC KIDNEY DISEASE, STAGE III (MODER 06/26/2016 MARIA LUISA STARR, MICHAEL Joel Ot 729.82 CRAMP IN LIMB 06/26/2016 MICHAEL GLASS MD Ot 780.60 FEVER, UNSPECIFIED 06/26/2016 MICHAEL GLASS MD Ot V58.69 OTH MED,LT,CURRENT USE 06/26/2016 TEREZA BRADEN MD Ot 571.5 CIRRHOSIS OF LIVER NOS 06/26/2016 TEREZA BRADEN MD Ot V42.7 LIVER TRANSPLANT STATUS 06/26/2016 MICHAEL GLASS MD Ot 573.9 LIVER DISORDER NOS 06/26/2016 MICHAEL GLASS MD Ot 780.60 FEVER, UNSPECIFIED 06/26/2016 MICHAEL GLASS MD Ot V42.7 LIVER TRANSPLANT STATUS 06/26/2016 EDUARDO PALACIO Ot 268.9 VITAMIN D DEFICIENCY NOS 06/26/2016 EDUARDO PALACIO Ot 272.4 HYPERLIPIDEMIA NEC/NOS 06/26/2016 EDUARDO PALACIO Ot V42.7 LIVER TRANSPLANT STATUS 06/26/2016 EDUARDO PALACIO Ot V58.69 OTH MED,LT,CURRENT USE 06/26/2016 MICHAEL GLASS MD Ot F17.210 NICOTINE DEPENDENCE, CIGARETTES, UNCOMPL 06/26/2016 MICHAEL GLASS MD Ot R05 COUGH 06/26/2016 MICHAEL GLASS MD Ot R10.9 UNSPECIFIED ABDOMINAL PAIN 06/26/2016 MICHAEL GLASS MD Ot R91.1 SOLITARY PULMONARY NODULE 06/26/2016 MARJAN STANLEY DO Ot B49 UNSPECIFIED MYCOSIS 06/26/2016 MARJAN STANLEY DO Ot R91.8 OTHER NONSPECIFIC ABNORMAL FINDING OF BRENT 06/26/2016 MARJAN STANLEY DO Ot Z94.4 LIVER TRANSPLANT STATUS 06/26/2016 KIMBERLEY HILL DO Ot J44.9 CHRONIC OBSTRUCTIVE PULMONARY DISEASE, U 06/26/2016 KIMBERLEY HILL DO Ot R91.8 OTHER NONSPECIFIC ABNORMAL FINDING OF BRENT 06/26/2016 RAMESH STARR, PRISCILA Vieira Ot E55.9 VITAMIN D DEFICIENCY, UNSPECIFIED 06/26/2016 RAMESH STARR, PRISCILA Vieira Ot E83.42 HYPOMAGNESEMIA 06/26/2016 RAMESH STARR, PRISCILA Vieira Ot K72.90 HEPATIC FAILURE, UNSPECIFIED WITHOUT COM 06/26/2016 RAMESH STARR, PRISCILA Vieira Ot N18.3 CHRONIC KIDNEY DISEASE, STAGE 3 (MODERAT 06/26/2016 ASIYA STARR, TEREZA Mathew Ot K74.60 UNSPECIFIED CIRRHOSIS OF LIVER 06/26/2016 Ot Z51.81 ENCOUNTER FOR THERAPEUTIC DRUG LEVEL MON 06/26/2016 Ot Z79.899 OTHER CARE HOME (CURRENT) DRUG THERAPY 06/26/2016 Ot Z94.4 LIVER TRANSPLANT STATUS 06/26/2016 MARIA LUISA STARR, MICHAEL Joel Ot K72.90 HEPATIC FAILURE, UNSPECIFIED WITHOUT COM 06/26/2016 ASIYA STARR, TEREZA Mathew Ot K74.60 UNSPECIFIED CIRRHOSIS OF LIVER 06/28/2016 EMELIA LOZOYA PROFESSIONAL DRIVER Ot F17.200 NICOTINE DEPENDENCE, UNSPECIFIED, UNCOMP 06/28/2016 EMELIA LOZOYA APRN Ot J44.9 CHRONIC OBSTRUCTIVE PULMONARY DISEASE, U 07/12/2016 EMELIA LOZOYA PROFESSIONAL DRIVER Ot F17.200 NICOTINE DEPENDENCE, UNSPECIFIED, UNCOMP 07/12/2016 EMELIA LOZOYA PROFESSIONAL DRIVER Ot J44.9 CHRONIC OBSTRUCTIVE PULMONARY DISEASE, U 07/31/2016 Ot V42.7 LIVER TRANSPLANT STATUS 07/31/2016 Ot V58.44 AFTERCARE FOLLOWING ORGAN TRANSPLANT 07/31/2016 Ot V58.69 OTH MED,LT, CURRENT USE 07/31/2016 Ot 572.8 OTH SEQUELA, CHR LILIANA DIS 07/31/2016 Ot 572.8 OTH SEQUELA, CHR LILIANA DIS 07/31/2016 Ot 572.8 OTH SEQUELA, CHR LILIANA DIS 07/31/2016 Ot 572.8 OTH SEQUELA, CHR LILIANA DIS 07/31/2016 Ot 572.8 OTH SEQUELA, CHR LILIANA DIS 07/31/2016 Ot 572.8 OTH SEQUELA, CHR LILIANA DIS 07/31/2016 Ot 572.8 OTH SEQUELA, CHR LILIANA DIS 07/31/2016 Ot 285.9 ANEMIA NOS 07/31/2016 Ot 572.8 OTH SEQUELA, CHR LILIANA DIS 07/31/2016 Ot 585.6 END STAGE RENAL DISEASE 07/31/2016 Ot V42.7 LIVER TRANSPLANT STATUS 07/31/2016 Ot 572.8 OTH SEQUELA, CHR LILIANA DIS 07/31/2016 Ot 572.8 OTH SEQUELA, CHR LILIANA DIS 07/31/2016 Ot 572.8 OTH SEQUELA, CHR LILIANA DIS 07/31/2016 Ot 585.9 CHRONIC KIDNEY DISEASE, UNSPECIFIED 07/31/2016 Ot 572.8 OTH SEQUELA, CHR LILIANA DIS 07/31/2016 Ot 572.8 OTH SEQUELA, CHR LILIANA DIS 07/31/2016 Ot 572.8 OTH SEQUELA, CHR LILIANA DIS 07/31/2016 Ot 572.8 OTH SEQUELA, CHR LILIANA DIS 07/31/2016 Ot 276.8 HYPOPOTASSEMIA 07/31/2016 Ot 572.8 OTH SEQUELA, CHR LILIANA DIS 07/31/2016 Ot 585.3 CHRONIC KIDNEY DISEASE, STAGE III (MODER 07/31/2016 Ot 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 07/31/2016 Ot 571.5 CIRRHOSIS OF LIVER NOS 07/31/2016 Ot V42.7 LIVER TRANSPLANT STATUS 07/31/2016 Ot 572.8 OTH SEQUELA, CHR LILIANA DIS 07/31/2016 Ot 585.3 CHRONIC KIDNEY DISEASE, STAGE III (MODER 07/31/2016 Ot 285.9 ANEMIA NOS 07/31/2016 Ot 585.3 CHRONIC KIDNEY DISEASE, STAGE III (MODER 07/31/2016 Ot 572.8 OTH SEQUELA, CHR LILIANA DIS 07/31/2016 Ot 572.8 OTH SEQUELA, CHR LILIANA DIS 07/31/2016 Ot 572.8 OTH SEQUELA, CHR LILIANA DIS 07/31/2016 Ot 585.3 CHRONIC KIDNEY DISEASE, STAGE III (MODER 07/31/2016 Ot 572.8 OTH SEQUELA, CHR LILIANA DIS 07/31/2016 Ot 572.8 OTH SEQUELA, CHR LILIANA DIS 07/31/2016 Ot 070.54 CHRONIC HEPATITIS C W/O HEPATIC COMA 07/31/2016 Ot 285.9 ANEMIA NOS 07/31/2016 Ot 491.20 OBSTR CHRONIC BRONCHITIS, W/O EXACERBATI 07/31/2016 Ot 572.8 OTH SEQUELA, CHR LILIANA DIS 07/31/2016 Ot 585.9 CHRONIC KIDNEY DISEASE, UNSPECIFIED 07/31/2016 Ot V42.7 LIVER TRANSPLANT STATUS 07/31/2016 Ot 572.8 OTH SEQUELA, CHR LILIANA DIS 07/31/2016 Ot 572.8 OTH SEQUELA, CHR LILIANA DIS 07/31/2016 Ot 585.9 CHRONIC KIDNEY DISEASE, UNSPECIFIED 07/31/2016 Ot 572.8 OTH SEQUELA, CHR LILIANA DIS 07/31/2016 Ot 585.9 CHRONIC KIDNEY DISEASE, UNSPECIFIED 07/31/2016 Ot 572.8 OTH SEQUELA, CHR LILIANA DIS 07/31/2016 Ot 585.3 CHRONIC KIDNEY DISEASE, STAGE III (MODER 07/31/2016 Ot 572.8 OTH SEQUELA, CHR LILIANA DIS 07/31/2016 Ot 572.8 OTH SEQUELA, CHR LILIANA DIS 07/31/2016 Ot 285.9 ANEMIA NOS 07/31/2016 Ot 496 CHR AIRWAY OBSTRUCT NEC 07/31/2016 Ot 572.8 OTH SEQUELA, CHR LILIANA DIS 07/31/2016 Ot 607.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, ORGANIC ORIGN 07/31/2016 Ot 780.79 OTH MALAISE FATIGUE 07/31/2016 Ot V42.7 LIVER TRANSPLANT STATUS 07/31/2016 Ot V58.69 OTH MED,LT, CURRENT USE 07/31/2016 Ot 572.8 OTH SEQUELA, CHR LILIANA DIS 07/31/2016 Ot 796.4 ABN CLINICAL FINDING NEC 07/31/2016 Ot V42.7 LIVER TRANSPLANT STATUS 07/31/2016 Ot 572.8 OTH SEQUELA, CHR LILIANA DIS 07/31/2016 Ot 572.8 OTH SEQUELA, CHR LILIANA DIS 07/31/2016 Ot 572.8 OTH SEQUELA, CHR LILIANA DIS 07/31/2016 Ot 070.54 CHRONIC HEPATITIS C W/O HEPATIC COMA 07/31/2016 Ot 572.8 OTH SEQUELA, CHR LILIANA DIS 07/31/2016 Ot 585.3 CHRONIC KIDNEY DISEASE, STAGE III (MODER 07/31/2016 Ot 572.8 OTH SEQUELA, CHR LILIANA DIS 07/31/2016 Ot 572.8 OTH SEQUELA, CHR LILIANA DIS 07/31/2016 Ot 572.8 OTH SEQUELA, CHR LILIANA DIS 07/31/2016 Ot 572.8 OTH SEQUELA, CHR LILIANA DIS 07/31/2016 Ot 572.8 OTH SEQUELA, CHR LILIANA DIS 07/31/2016 Ot 572.8 OTH SEQUELA, CHR LILIANA DIS 07/31/2016 Ot V42.7 LIVER TRANSPLANT STATUS 07/31/2016 Ot 268.9 VITAMIN D DEFICIENCY NOS 07/31/2016 Ot 281.1 B12 DEFIC ANEMIA NEC 07/31/2016 Ot 285.9 ANEMIA NOS 07/31/2016 Ot 491.21 OBSTR CHRONIC BRONCHITIS, W (ACUTE) EXAC 07/31/2016 Ot 572.8 OTH SEQUELA, CHR LILIANA DIS 07/31/2016 Ot 585.3 CHRONIC KIDNEY DISEASE, STAGE III (MODER 07/31/2016 Ot V42.7 LIVER TRANSPLANT STATUS 07/31/2016 Ot V58.69 OTH MED,LT, CURRENT USE 07/31/2016 Ot 573.8 LIVER DISORDERS NEC 07/31/2016 Ot 593.9 RENAL URETERAL DIS NOS 07/31/2016 Ot 721.3 LUMBOSACRAL SPONDYLOSIS 07/31/2016 Ot V58.69 OTH MED,LT, CURRENT USE 07/31/2016 Ot 572.8 OTH SEQUELA, CHR LILIANA DIS 07/31/2016 Ot V42.7 LIVER TRANSPLANT STATUS 07/31/2016 Ot 572.8 OTH SEQUELA, CHR LILIANA DIS 07/31/2016 Ot 585.3 CHRONIC KIDNEY DISEASE, STAGE III (MODER 07/31/2016 Ot 572.8 OTH SEQUELA, CHR LILIANA DIS 07/31/2016 Ot 572.8 OTH SEQUELA, CHR LILIANA DIS 07/31/2016 Ot 585.3 CHRONIC KIDNEY DISEASE, STAGE III (MODER 07/31/2016 Ot 572.8 OTH SEQUELA, CHR LILIANA DIS 07/31/2016 Ot 268.9 VITAMIN D DEFICIENCY NOS 07/31/2016 Ot 275.2 DIS MAGNESIUM METABOLISM 07/31/2016 Ot 572.8 OTH SEQUELA, CHR LILIANA DIS 07/31/2016 Ot 585.3 CHRONIC KIDNEY DISEASE, STAGE III (MODER 07/31/2016 Ot V42.7 LIVER TRANSPLANT STATUS 07/31/2016 Ot V58.69 OTH MED,LT, CURRENT USE 07/31/2016 Ot 573.8 LIVER DISORDERS NEC 07/31/2016 Ot 593.9 RENAL URETERAL DIS NOS 07/31/2016 Ot 789.09 ABDOMINAL PAIN, OTHER SPECIFIED SITE 07/31/2016 RAMESH STARR, PRISCILA Vieira Ot 285.9 ANEMIA NOS 07/31/2016 RAMESH STARR, PRISCILA Vieira Ot 572.8 OTH SEQUELA, CHR LILIANA DIS 07/31/2016 RAMESH STARR, PRISCILA Vieira Ot 585.9 CHRONIC KIDNEY DISEASE, UNSPECIFIED 07/31/2016 EDUARDO PALACIO Ot 572.8 OTH SEQUELA, CHR LILIANA DIS 07/31/2016 EDUARDO PALACIO Ot 585.9 CHRONIC KIDNEY DISEASE, UNSPECIFIED 07/31/2016 RAMESH STARR, PRISCILA Vieira Ot 285.9 ANEMIA NOS 07/31/2016 RAMESH STARR, PRISCILA Vieira Ot 572.8 OTH SEQUELA, CHR LILIANA DIS 07/31/2016 PRISCILA CHANDLER MD Ot 585.9 CHRONIC KIDNEY DISEASE, UNSPECIFIED 07/31/2016 EDUARDO PALACIOBS Ot 572.8 OTH SEQUELA, CHR LILIANA DIS 07/31/2016 TEREZA BRADEN MD Ot 572.8 OTH SEQUELA, CHR LILIANA DIS 07/31/2016 TEREZA BRADEN MD Ot 585.3 CHRONIC KIDNEY DISEASE, STAGE III (MODER 07/31/2016 RAMESH STARR, PRISCILA Vieira Ot 268.9 VITAMIN D DEFICIENCY NOS 07/31/2016 PRISCILA CHANDLER MD Ot V42.7 LIVER TRANSPLANT STATUS 07/31/2016 MARIA LUISA STARR, MICHAEL Joel Ot 780.79 OTH MALAISE FATIGUE 07/31/2016 PRISCILA CHANDLER MD Ot 585.3 CHRONIC KIDNEY DISEASE, STAGE III (MODER 07/31/2016 MARIA LUISA STARR, MICHAEL Joel Ot 719.06 JOINT EFFUSION-L/LEG 07/31/2016 MARIA LUISA STARR, MICHAEL Joel Ot 719.47 JOINT PAIN-ANKLE 07/31/2016 TEREZA BRADEN MD Ot V42.7 LIVER TRANSPLANT STATUS 07/31/2016 TEREZA BRADEN MD Ot V58.44 AFTERCARE FOLLOWING ORGAN TRANSPLANT 07/31/2016 PRISCILA CHANDLER MD Ot 268.9 VITAMIN D DEFICIENCY NOS 07/31/2016 PRISCILA CHANDLER MD Ot 276.8 HYPOPOTASSEMIA 07/31/2016 PRISCILA CHANDLER MD Ot 585.3 CHRONIC KIDNEY DISEASE, STAGE III (MODER 07/31/2016 PRISCILA CHANDLER MD Ot 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 07/31/2016 MARIA LUISA STARR, MICHAEL Joel Ot 275.41 HYPOCALCEMIA 07/31/2016 MARIA LUISA STARR, MICHAEL Joel Ot 276.9 ELECTROLYT/FLUID DIS NEC 07/31/2016 MICHAEL GLASS MD Ot 427.89 CARDIAC DYSRHYTHMIAS NEC 07/31/2016 TEREZA BRADEN MD Ot 572.8 OTH SEQUELA, CHR LILIANA DIS 07/31/2016 TEREZA BRADEN MD Ot 585.3 CHRONIC KIDNEY DISEASE, STAGE III (MODER 07/31/2016 TEREZA BRADEN MD Ot 790.6 ABN BLOOD CHEMISTRY NEC 07/31/2016 ANGELICA STARR, LOYDA Joel Ot 427.9 CARDIAC DYSRHYTHMIA NOS 07/31/2016 LOYDA DOMINGUEZ MD Ot 585.9 CHRONIC KIDNEY DISEASE, UNSPECIFIED 07/31/2016 LOYDA DOMINGUEZ MD Ot V15.81 HX OF PAST NONCOMPLIANCE 07/31/2016 MARIA LUISA STARR, MICHAEL Joel Ot 721.3 LUMBOSACRAL SPONDYLOSIS 07/31/2016 MICHAEL GLASS MD Ot 722.10 LUMBAR DISC DISPLACEMENT 07/31/2016 MARIA LUISA STARR, MICHAEL Joel Ot V15.88 HISTORY OF FALL 07/31/2016 MARIA LUISA STARR, MICHAEL Joel Ot 722.52 LUMB/LUMBOSAC DISC DEGEN 07/31/2016 MICHAEL GLASS MD Ot 737.30 IDIOPATHIC SCOLIOSIS 07/31/2016 Ot 305.1 TOBACCO USE DISORDER 07/31/2016 Ot 427.9 CARDIAC DYSRHYTHMIA NOS 07/31/2016 Ot 585.9 CHRONIC KIDNEY DISEASE, UNSPECIFIED 07/31/2016 Ot 790.29 OTHER ABNORMAL GLUCOSE 07/31/2016 Ot V15.81 HX OF PAST NONCOMPLIANCE 07/31/2016 PRISCILA CHANDLER MD Ot 268.9 VITAMIN D DEFICIENCY NOS 07/31/2016 PRISCILA CHANDLER MD Ot 275.2 DIS MAGNESIUM METABOLISM 07/31/2016 PRISCILA CHANDLER MD Ot 585.3 CHRONIC KIDNEY DISEASE, STAGE III (MODER 07/31/2016 PRISCILA CHANDLER MD Ot 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 07/31/2016 PRISCILA CHANDLER MD Ot 268.9 VITAMIN D DEFICIENCY NOS 07/31/2016 PRISCILA CHANDLER MD Ot 275.2 DIS MAGNESIUM METABOLISM 07/31/2016 PRISCILA CHANDLER MD Ot 585.3 CHRONIC KIDNEY DISEASE, STAGE III (MODER 07/31/2016 Ot 338.29 OTHER CHRONIC PAIN 07/31/2016 Ot 573.9 LIVER DISORDER NOS 07/31/2016 Ot 729.82 CRAMP IN LIMB 07/31/2016 Ot V58.69 OTH MED,LT, CURRENT USE 07/31/2016 Ot 268.9 VITAMIN D DEFICIENCY NOS 07/31/2016 Ot 275.2 DIS MAGNESIUM METABOLISM 07/31/2016 Ot 403.90 HYPTNSV CHR KID DIS, UNSPEC, W CHR KD ST 07/31/2016 Ot 585.3 CHRONIC KIDNEY DISEASE, STAGE III (MODER 07/31/2016 MARIA LUISA STARR, MICHAEL Joel Ot 729.82 CRAMP IN LIMB 07/31/2016 MARIA LUISA STARR, MICHAEL Joel Ot 780.60 FEVER, UNSPECIFIED 07/31/2016 MICHAEL GLASS MD Ot V58.69 OTH MED,LT,CURRENT USE 07/31/2016 TEREZA BRADEN MD Ot 571.5 CIRRHOSIS OF LIVER NOS 07/31/2016 TEREZA BRADEN MD Ot V42.7 LIVER TRANSPLANT STATUS 07/31/2016 MICHAEL GLASS MD Ot 573.9 LIVER DISORDER NOS 07/31/2016 MICHAEL GLASS MD Ot 780.60 FEVER, UNSPECIFIED 07/31/2016 MICHAEL GLASS MD Ot V42.7 LIVER TRANSPLANT STATUS 07/31/2016 EDUARDO PALACIO Ot 268.9 VITAMIN D DEFICIENCY NOS 07/31/2016 EDUARDO PALACIO Ot 272.4 HYPERLIPIDEMIA NEC/NOS 07/31/2016 EDUARDO PALACIO Ot V42.7 LIVER TRANSPLANT STATUS 07/31/2016 EDUARDO PALACIO Ot V58.69 OTH MED,LT,CURRENT USE 07/31/2016 MARIA LUISA STARR, MICHAEL Joel Ot F17.210 NICOTINE DEPENDENCE, CIGARETTES, UNCOMPL 07/31/2016 MARIA LUISA STARR, MICHAEL Joel Ot R05 COUGH 07/31/2016 MICHAEL GLASS MD Ot R10.9 UNSPECIFIED ABDOMINAL PAIN 07/31/2016 MICHAEL GLASS MD Ot R91.1 SOLITARY PULMONARY NODULE 07/31/2016 STANLEYMARJAN LIN DO Ot B49 UNSPECIFIED MYCOSIS 07/31/2016 STANLEYMARJAN LIN DO Ot R91.8 OTHER NONSPECIFIC ABNORMAL FINDING OF BRENT 07/31/2016 MARJAN STANLEY DO Ot Z94.4 LIVER TRANSPLANT STATUS 07/31/2016 KIMBERLEY HILL DO Ot J44.9 CHRONIC OBSTRUCTIVE PULMONARY DISEASE, U 07/31/2016 KIMBERLEY HILL DO Ot R91.8 OTHER NONSPECIFIC ABNORMAL FINDING OF BRENT 07/31/2016 RAMESH STARR, PRISCILA Vieira Ot E55.9 VITAMIN D DEFICIENCY, UNSPECIFIED 07/31/2016 PRISCILA CHANDLER MD Ot E83.42 HYPOMAGNESEMIA 07/31/2016 PRISCILA CHANDLER MD Ot K72.90 HEPATIC FAILURE, UNSPECIFIED WITHOUT COM 07/31/2016 RAMESH STARR, PRISCILA Vieira Ot N18.3 CHRONIC KIDNEY DISEASE, STAGE 3 (MODERAT 07/31/2016 TEREZA BRADEN MD Ot K74.60 UNSPECIFIED CIRRHOSIS OF LIVER 07/31/2016 Ot Z51.81 ENCOUNTER FOR THERAPEUTIC DRUG LEVEL MON 07/31/2016 Ot Z79.899 OTHER RENTAL MANAGEMENT TRAINEE (CURRENT) DRUG THERAPY 07/31/2016 Ot Z94.4 LIVER TRANSPLANT STATUS 07/31/2016 MICHAEL GLASS MD Ot K72.90 HEPATIC FAILURE, UNSPECIFIED WITHOUT COM 07/31/2016 TEREZA BRADEN MD Ot K74.60 UNSPECIFIED CIRRHOSIS OF LIVER 07/31/2016 EMELIA LOZOYA APRN Ot F17.200 NICOTINE DEPENDENCE, UNSPECIFIED, UNCOMP 07/31/2016 EMELIA LOZOYA APRN Ot J44.9 CHRONIC OBSTRUCTIVE PULMONARY DISEASE, U 07/31/2016 TEREZA BRADEN MD Ot K74.60 UNSPECIFIED CIRRHOSIS OF LIVER 07/31/2016 TEREZA BRADEN MD Ot K74.60 UNSPECIFIED CIRRHOSIS OF LIVER 08/01/2016 DEVORA, EMELIA E PROFESSIONAL DRIVER Ot F17.200 NICOTINE DEPENDENCE, UNSPECIFIED, UNCOMP 08/01/2016 EMELIA LOZOYA PROFESSIONAL DRIVER Ot J44.9 CHRONIC OBSTRUCTIVE PULMONARY DISEASE, U 08/01/2016 EMELIA LOZOYA PROFESSIONAL DRIVER Ot R91.8 OTHER NONSPECIFIC ABNORMAL FINDING OF BRENT 08/08/2016 TEREZA BRADEN MD Ot K74.60 UNSPECIFIED CIRRHOSIS OF LIVER 08/17/2016 EMELIA LOZOYA PROFESSIONAL DRIVER Ot F17.200 NICOTINE DEPENDENCE, UNSPECIFIED, UNCOMP 08/17/2016 EMELIA LOZOYA PROFESSIONAL DRIVER Ot J44.9 CHRONIC OBSTRUCTIVE PULMONARY DISEASE, U 08/17/2016 EMELIA LOZOYA PROFESSIONAL DRIVER Ot R91.8 OTHER NONSPECIFIC ABNORMAL FINDING OF BRENT 11/14/2016 TEREZA BRADEN MD Ot E83.42 HYPOMAGNESEMIA 11/27/2016 TEREZA BRADEN MD Ot E83.42 HYPOMAGNESEMIA 11/28/2016 Ot V42.7 LIVER TRANSPLANT STATUS 11/28/2016 Ot V58.44 AFTERCARE FOLLOWING ORGAN TRANSPLANT 11/28/2016 Ot V58.69 OTH MED,LT, CURRENT USE 11/28/2016 Ot 572.8 OTH SEQUELA, CHR LILIA[place] DIS 11/28/2016 Ot 572.8 OTH SEQUELA, CHR LILIANA DIS 11/28/2016 Ot 572.8 OTH SEQUELA, CHR LILIANA DIS 11/28/2016 Ot 572.8 OTH SEQUELA, CHR LILIANA DIS 11/28/2016 Ot 572.8 OTH SEQUELA, CHR LILIANA DIS 11/28/2016 Ot 276.8 HYPOPOTASSEMIA 11/28/2016 Ot 572.8 OTH SEQUELA, CHR LILIANA DIS 11/28/2016 Ot 585.3 CHRONIC KIDNEY DISEASE, STAGE III (MODER 11/28/2016 Ot 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 11/28/2016 Ot 571.5 CIRRHOSIS OF LIVER NOS 11/28/2016 Ot V42.7 LIVER TRANSPLANT STATUS 11/28/2016 Ot 572.8 OTH SEQUELA, CHR LILIANA DIS 11/28/2016 Ot 585.3 CHRONIC KIDNEY DISEASE, STAGE III (MODER 11/28/2016 Ot 285.9 ANEMIA NOS 11/28/2016 Ot 585.3 CHRONIC KIDNEY DISEASE, STAGE III (MODER 11/28/2016 Ot 572.8 OTH SEQUELA, CHR LILIANA DIS 11/28/2016 Ot 572.8 OTH SEQUELA, CHR LILIANA DIS 11/28/2016 Ot 572.8 OTH SEQUELA, CHR LILIANA DIS 11/28/2016 Ot 585.3 CHRONIC KIDNEY DISEASE, STAGE III (MODER 11/28/2016 Ot 572.8 OTH SEQUELA, CHR LILIANA DIS 11/28/2016 Ot 572.8 OTH SEQUELA, CHR LILIANA DIS 11/28/2016 Ot 070.54 CHRONIC HEPATITIS C W/O HEPATIC COMA 11/28/2016 Ot 285.9 ANEMIA NOS 11/28/2016 Ot 491.20 OBSTR CHRONIC BRONCHITIS, W/O EXACERBATI 11/28/2016 Ot 572.8 OTH SEQUELA, CHR LILIANA DIS 11/28/2016 Ot 585.9 CHRONIC KIDNEY DISEASE, UNSPECIFIED 11/28/2016 Ot V42.7 LIVER TRANSPLANT STATUS 11/28/2016 Ot 572.8 OTH SEQUELA, CHR LILIANA DIS 11/28/2016 Ot 572.8 OTH SEQUELA, CHR LILIANA DIS 11/28/2016 Ot 585.9 CHRONIC KIDNEY DISEASE, UNSPECIFIED 11/28/2016 Ot 572.8 OTH SEQUELA, CHR LILIANA DIS 11/28/2016 Ot 585.9 CHRONIC KIDNEY DISEASE, UNSPECIFIED 11/28/2016 Ot 572.8 OTH SEQUELA, CHR LILIANA DIS 11/28/2016 Ot 585.3 CHRONIC KIDNEY DISEASE, STAGE III (MODER 11/28/2016 Ot 572.8 OTH SEQUELA, CHR LILIANA DIS 11/28/2016 Ot 572.8 OTH SEQUELA, CHR LILIANA DIS 11/28/2016 Ot 285.9 ANEMIA NOS 11/28/2016 Ot 496 CHR AIRWAY OBSTRUCT NEC 11/28/2016 Ot 572.8 OTH SEQUELA, CHR LILIANA DIS 11/28/2016 Ot 607.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, ORGANIC ORIGN 11/28/2016 Ot 780.79 OTH MALAISE FATIGUE 11/28/2016 Ot V42.7 LIVER TRANSPLANT STATUS 11/28/2016 Ot V58.69 OTH MED,LT, CURRENT USE 11/28/2016 Ot 572.8 OTH SEQUELA, [facility] LILIA[place] DIS 11/28/2016 Ot 796.4 ABN CLINICAL FINDING NEC 11/28/2016 Ot V42.7 LIVER TRANSPLANT STATUS 11/28/2016 Ot 572.8 OTH SEQUELA, CHR LILIANA DIS 11/28/2016 Ot 572.8 OTH SEQUELA, CHR LILIANA DIS 11/28/2016 Ot 572.8 OTH SEQUELA, CHR LILIANA DIS 11/28/2016 Ot 070.54 CHRONIC HEPATITIS C W/O HEPATIC COMA 11/28/2016 Ot 572.8 OTH SEQUELA, CHR LILIANA DIS 11/28/2016 Ot 585.3 CHRONIC KIDNEY DISEASE, STAGE III (MODER 11/28/2016 Ot 572.8 OTH SEQUELA, CHR LILIANA DIS 11/28/2016 Ot 572.8 OTH SEQUELA, CHR LILIANA DIS 11/28/2016 Ot 572.8 OTH SEQUELA, CHR LILIANA DIS 11/28/2016 Ot 572.8 OTH SEQUELA, CHR LILIANA DIS 11/28/2016 Ot 572.8 OTH SEQUELA, [facility] L[place] DIS 11/28/2016 Ot 572.8 OTH SEQUELA, [facility] [place] DIS 11/28/2016 Ot V42.7 LIVER TRANSPLANT STATUS 11/28/2016 Ot 268.9 VITAMIN D DEFICIENCY NOS 11/28/2016 Ot 281.1 B12 DEFIC ANEMIA NEC 11/28/2016 Ot 285.9 ANEMIA NOS 11/28/2016 Ot 491.21 OBSTR CHRONIC BRONCHITIS, W (ACUTE) EXAC 11/28/2016 Ot 572.8 OTH SEQUELA, CHR LILIANA DIS 11/28/2016 Ot 585.3 CHRONIC KIDNEY DISEASE, STAGE III (MODER 11/28/2016 Ot V42.7 LIVER TRANSPLANT STATUS 11/28/2016 Ot V58.69 OTH MED,LT, CURRENT USE 11/28/2016 Ot 573.8 LIVER DISORDERS NEC 11/28/2016 Ot 593.9 RENAL URETERAL DIS NOS 11/28/2016 Ot 721.3 LUMBOSACRAL SPONDYLOSIS 11/28/2016 Ot V58.69 OTH MED,LT, CURRENT USE 11/28/2016 Ot 572.8 OTH SEQUELA, CHR LILIANA DIS 11/28/2016 Ot V42.7 LIVER TRANSPLANT STATUS 11/28/2016 Ot 572.8 OTH SEQUELA, CHR LILIANA DIS 11/28/2016 Ot 585.3 CHRONIC KIDNEY DISEASE, STAGE III (MODER 11/28/2016 Ot 572.8 OTH SEQUELA, CHR LILIANA DIS 11/28/2016 Ot 572.8 OTH SEQUELA, CHR LILIANA DIS 11/28/2016 Ot 585.3 CHRONIC KIDNEY DISEASE, STAGE III (MODER 11/28/2016 Ot 572.8 OTH SEQUELA, CHR LILIANA DIS 11/28/2016 Ot 268.9 VITAMIN D DEFICIENCY NOS 11/28/2016 Ot 275.2 DIS MAGNESIUM METABOLISM 11/28/2016 Ot 572.8 OTH SEQUELA, [facility] [place] DIS 11/28/2016 Ot 585.3 CHRONIC KIDNEY DISEASE, STAGE III (MODER 11/28/2016 Ot V42.7 LIVER TRANSPLANT STATUS 11/28/2016 Ot V58.69 OTH MED,LT, CURRENT USE 11/28/2016 Ot 573.8 LIVER DISORDERS NEC 11/28/2016 Ot 593.9 RENAL URETERAL DIS NOS 11/28/2016 Ot 789.09 ABDOMINAL PAIN, OTHER SPECIFIED SITE 11/28/2016 RAMESH STARR, PRISCILA Vieira Ot 285.9 ANEMIA NOS 11/28/2016 RAMESH STARR, PRISCILA Vieira Ot 572.8 OTH SEQUELA, [facility] [place] DIS 11/28/2016 RAMESH STARR, PRISCILA Vieira Ot 585.9 CHRONIC KIDNEY DISEASE, UNSPECIFIED 11/28/2016 EDUARDO PALACIO Ot 572.8 OTH SEQUELA, [facility] [place] DIS 11/28/2016 EDUARDO PALACIO Ot 585.9 CHRONIC KIDNEY DISEASE, UNSPECIFIED 11/28/2016 RAMESH STARR, PRISCILA Vieira Ot 285.9 ANEMIA NOS 11/28/2016 RAMESH STARR, PRISCILA Vieira Ot 572.8 OTH SEQUELA, [facility] [place] DIS 11/28/2016 RAMESH STARR, PRISCILA Vieira Ot 585.9 CHRONIC KIDNEY DISEASE, UNSPECIFIED 11/28/2016 EDUARDO PALACIO Ot 572.8 OTH SEQUELA, CHR [place] DIS 11/28/2016 ASIYA STARR, TEREZA Mathew Ot 572.8 OTH SEQUELA, [facility] [place] DIS 11/28/2016 ASIYA STARR, TEREZA Mathew Ot 585.3 CHRONIC KIDNEY DISEASE, STAGE III (MODER 11/28/2016 RAMESH STARR, PRISCILA Vieira Ot 268.9 VITAMIN D DEFICIENCY NOS 11/28/2016 RAMESH STARR, PRISCILA Vieira Ot V42.7 LIVER TRANSPLANT STATUS 11/28/2016 MICHAEL GLASS MD Ot 780.79 OTH MALAISE FATIGUE 11/28/2016 PRISCILA CHANDLER MD Ot 585.3 CHRONIC KIDNEY DISEASE, STAGE III (MODER 11/28/2016 MICHAEL GLASS MD Ot 719.06 JOINT EFFUSION-L/LEG 11/28/2016 MICHAEL GLASS MD Ot 719.47 JOINT PAIN-ANKLE 11/28/2016 TEREZA BRDAEN MD Ot V42.7 LIVER TRANSPLANT STATUS 11/28/2016 TEREZA BRADEN MD Ot V58.44 AFTERCARE FOLLOWING ORGAN TRANSPLANT 11/28/2016 PRISCILA CHANDLER MD Ot 268.9 VITAMIN D DEFICIENCY NOS 11/28/2016 PRISCILA CHANDLER MD Ot 276.8 HYPOPOTASSEMIA 11/28/2016 PRISCILA CHANDLER MD Ot 585.3 CHRONIC KIDNEY DISEASE, STAGE III (MODER 11/28/2016 PRISCILA CHANDLER MD Ot 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 11/28/2016 MICHAEL GLASS MD Ot 275.41 HYPOCALCEMIA 11/28/2016 MICHAEL GLASS MD Ot 276.9 ELECTROLYT/FLUID DIS NEC 11/28/2016 MICHAEL GLASS MD Ot 427.89 CARDIAC DYSRHYTHMIAS NEC 11/28/2016 TEREZA BRADEN MD Ot 572.8 OTH SEQUELA, [facility] [place] DIS 11/28/2016 TEREZA BRADEN MD Ot 585.3 CHRONIC KIDNEY DISEASE, STAGE III (MODER 11/28/2016 TEREZA BRADEN MD Ot 790.6 ABN BLOOD CHEMISTRY NEC 11/28/2016 LOYDA DOMINGUEZ MD Ot 427.9 CARDIAC DYSRHYTHMIA NOS 11/28/2016 LOYDA DOMINGUEZ MD Ot 585.9 CHRONIC KIDNEY DISEASE, UNSPECIFIED 11/28/2016 LOYDA DOMINGUEZ MD Ot V15.81 HX OF PAST NONCOMPLIANCE 11/28/2016 MICHAEL GLASS MD Ot 721.3 LUMBOSACRAL SPONDYLOSIS 11/28/2016 MICHAEL GLASS MD Ot 722.10 LUMBAR DISC DISPLACEMENT 11/28/2016 MICHAEL GLASS MD Ot V15.88 HISTORY OF FALL 11/28/2016 MICHAEL GLASS MD Ot 722.52 LUMB/LUMBOSAC DISC DEGEN 11/28/2016 MICHAEL GLASS MD Ot 737.30 IDIOPATHIC SCOLIOSIS 11/28/2016 Ot 305.1 TOBACCO USE DISORDER 11/28/2016 Ot 427.9 CARDIAC DYSRHYTHMIA NOS 11/28/2016 Ot 585.9 CHRONIC KIDNEY DISEASE, UNSPECIFIED 11/28/2016 Ot 790.29 OTHER ABNORMAL GLUCOSE 11/28/2016 Ot V15.81 HX OF PAST NONCOMPLIANCE 11/28/2016 RAMESH STARR, PRISCILA Vieira Ot 268.9 VITAMIN D DEFICIENCY NOS 11/28/2016 RAMESH STARR, PRISCILA Vieira Ot 275.2 DIS MAGNESIUM METABOLISM 11/28/2016 PRISCILA CHANDLER MD Ot 585.3 CHRONIC KIDNEY DISEASE, STAGE III (MODER 11/28/2016 PRISCILA CHANDLER MD Ot 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 11/28/2016 PRISCILA CHANDLER MD Ot 268.9 VITAMIN D DEFICIENCY NOS 11/28/2016 RAMESH STARR, PRISCILA Vieira Ot 275.2 DIS MAGNESIUM METABOLISM 11/28/2016 PRISCILA CHANDLER MD Ot 585.3 CHRONIC KIDNEY DISEASE, STAGE III (MODER 11/28/2016 Ot 338.29 OTHER CHRONIC PAIN 11/28/2016 Ot 573.9 LIVER DISORDER NOS 11/28/2016 Ot 729.82 CRAMP IN LIMB 11/28/2016 Ot V58.69 OTH MED,LT, CURRENT USE 11/28/2016 Ot 268.9 VITAMIN D DEFICIENCY NOS 11/28/2016 Ot 275.2 DIS MAGNESIUM METABOLISM 11/28/2016 Ot 403.90 HYPTNSV CHR KID DIS, UNSPEC, W CHR KD ST 11/28/2016 Ot 585.3 CHRONIC KIDNEY DISEASE, STAGE III (MODER 11/28/2016 MARIA LUISA STARR, MICHAEL Joel Ot 729.82 CRAMP IN LIMB 11/28/2016 MARIA LUISA STARR, MICHAEL Joel Ot 780.60 FEVER, UNSPECIFIED 11/28/2016 MICHAEL GLASS MD Ot V58.69 OTH MED,LT,CURRENT USE 11/28/2016 TEREZA BRADEN MD Ot 571.5 CIRRHOSIS OF LIVER NOS 11/28/2016 TEREZA BRADEN MD Ot V42.7 LIVER TRANSPLANT STATUS 11/28/2016 MICHAEL GLASS MD Ot 573.9 LIVER DISORDER NOS 11/28/2016 MICHAEL GLASS MD Ot 780.60 FEVER, UNSPECIFIED 11/28/2016 MICHAEL GLASS MD Ot V42.7 LIVER TRANSPLANT STATUS 11/28/2016 [place] [facility] [place] 268.9 VITAMIN D DEFICIENCY NOS 11/28/2016 EDUARDO PALACIOBS Ot 272.4 HYPERLIPIDEMIA NEC/NOS 11/28/2016 EDUARDO PALACIOBS Ot V42.7 LIVER TRANSPLANT STATUS 11/28/2016 EDUARDO PALACIO Ot V58.69 OTH MED,LT,CURRENT USE 11/28/2016 MARIA LUISA STARR, MICHAEL Joel Ot F17.210 NICOTINE DEPENDENCE, CIGARETTES, UNCOMPL 11/28/2016 MICHAEL GLASS MD Ot R05 COUGH 11/28/2016 MICHAEL GLASS MD Ot R10.9 UNSPECIFIED ABDOMINAL PAIN 11/28/2016 MICHAEL GLASS MD Ot R91.1 SOLITARY PULMONARY NODULE 11/28/2016 MARJAN STANLEY DO Ot B49 UNSPECIFIED MYCOSIS 11/28/2016 MARJAN STANLEY DO Ot R91.8 OTHER NONSPECIFIC ABNORMAL FINDING OF BRENT 11/28/2016 MARJAN STANLEY DO Ot Z94.4 LIVER TRANSPLANT STATUS 11/28/2016 KIMBERLEY HILL DO Ot J44.9 CHRONIC OBSTRUCTIVE PULMONARY DISEASE, U 11/28/2016 KIMBERLEY HILL DO Ot R91.8 OTHER NONSPECIFIC ABNORMAL FINDING OF BRENT 11/28/2016 PRISCILA CHANDLER MD Ot E55.9 VITAMIN D DEFICIENCY, UNSPECIFIED 11/28/2016 PRISCILA CHANDLER MD Ot E83.42 HYPOMAGNESEMIA 11/28/2016 PRISCILA CHANDLER MD Ot K72.90 HEPATIC FAILURE, UNSPECIFIED WITHOUT COM 11/28/2016 PRISCILA CHANDLER MD Ot N18.3 CHRONIC KIDNEY DISEASE, STAGE 3 (MODERAT 11/28/2016 TEREZA BRADEN MD Ot K74.60 UNSPECIFIED CIRRHOSIS OF LIVER 11/28/2016 Ot Z51.81 ENCOUNTER FOR THERAPEUTIC DRUG LEVEL MON 11/28/2016 Ot Z79.899 OTHER CARE HOME (CURRENT) DRUG THERAPY 11/28/2016 Ot Z94.4 LIVER TRANSPLANT STATUS 11/28/2016 MICHAEL GLASS MD Ot K72.90 HEPATIC FAILURE, UNSPECIFIED WITHOUT COM 11/28/2016 TEREZA BRADEN MD Ot K74.60 UNSPECIFIED CIRRHOSIS OF LIVER 11/28/2016 EMELIA LOZOYA APRN Ot F17.200 NICOTINE DEPENDENCE, UNSPECIFIED, UNCOMP 11/28/2016 EMELIA LOZOYA APRN Ot J44.9 CHRONIC OBSTRUCTIVE PULMONARY DISEASE, U 11/28/2016 EMELIA LOZOYA APRN Ot F17.200 NICOTINE DEPENDENCE, UNSPECIFIED, UNCOMP 11/28/2016 EMELIA LOZOYA APRN Ot J44.9 CHRONIC OBSTRUCTIVE PULMONARY DISEASE, U 11/28/2016 EMELIA LOZOYA APRN Ot R91.8 OTHER NONSPECIFIC ABNORMAL FINDING OF BRENT 11/28/2016 TEREZA BRADEN MD Ot K74.60 UNSPECIFIED CIRRHOSIS OF LIVER 11/28/2016 TEREZA BRADEN MD Ot E83.42 HYPOMAGNESEMIA 11/28/2016 JJ CORRAL DO Ot R53.81 OTHER MALAISE 11/28/2016 JJ CORRAL DO Ot Z53.21 PROC/TRTMT NOT CRD OUT D/T PT LV BEF SEE 11/28/2016 JJ CORRAL DO Ot Z94.4 LIVER TRANSPLANT STATUS 12/11/2016 TEREZA BRADEN MD Ot Z94.4 LIVER TRANSPLANT STATUS 01/04/2017 Ot V42.7 LIVER TRANSPLANT STATUS 01/04/2017 Ot V58.44 AFTERCARE FOLLOWING ORGAN TRANSPLANT 01/04/2017 Ot V58.69 OTH MED,LT, CURRENT USE 01/04/2017 Ot 572.8 OTH SEQUELA, CH[facility] [place] DIS 01/04/2017 Ot 572.8 OTH SEQUELA, CHR [place] DIS 01/04/2017 Ot 276.8 HYPOPOTASSEMIA 01/04/2017 Ot 572.8 OTH SEQUELA, CH[facility] [place] DIS 01/04/2017 Ot 585.3 CHRONIC KIDNEY DISEASE, STAGE III (MODER 01/04/2017 Ot 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 01/04/2017 Ot 571.5 CIRRHOSIS OF LIVER NOS 01/04/2017 Ot V42.7 LIVER TRANSPLANT STATUS 01/04/2017 Ot 572.8 OTH SEQUELA, CH[facility] [place] DIS 01/04/2017 Ot 585.3 CHRONIC KIDNEY DISEASE, STAGE III (MODER 01/04/2017 Ot 285.9 ANEMIA NOS 01/04/2017 Ot 585.3 CHRONIC KIDNEY DISEASE, STAGE III (MODER 01/04/2017 Ot 572.8 OTH SEQUELA, CHR [place] DIS 01/04/2017 Ot 572.8 OTH SEQUELA, CHR [place] DIS 01/04/2017 Ot 572.8 OTH SEQUELA, CHR [place] DIS 01/04/2017 Ot 585.3 CHRONIC KIDNEY DISEASE, STAGE III (MODER 01/04/2017 Ot 572.8 OTH SEQUELA, CHR [place] DIS 01/04/2017 Ot 572.8 OTH SEQUELA, CH[facility] [place] DIS 01/04/2017 Ot 070.54 CHRONIC HEPATITIS C W/O HEPATIC COMA 01/04/2017 Ot 285.9 ANEMIA NOS 01/04/2017 Ot 491.20 OBSTR CHRONIC BRONCHITIS, W/O EXACERBATI 01/04/2017 Ot 572.8 OTH SEQUELA, CHR [place] DIS 01/04/2017 Ot 585.9 CHRONIC KIDNEY DISEASE, UNSPECIFIED 01/04/2017 Ot V42.7 LIVER TRANSPLANT STATUS 01/04/2017 Ot 572.8 OTH SEQUELA, CHR [place] DIS 01/04/2017 Ot 572.8 OTH SEQUELA, [facility] [place] DIS 01/04/2017 Ot 585.9 CHRONIC KIDNEY DISEASE, UNSPECIFIED 01/04/2017 Ot 572.8 OTH SEQUELA, CHR [place] DIS 01/04/2017 Ot 585.9 CHRONIC KIDNEY DISEASE, UNSPECIFIED 01/04/2017 Ot 572.8 OTH SEQUELA, CHR [place] DIS 01/04/2017 Ot 585.3 CHRONIC KIDNEY DISEASE, STAGE III (MODER 01/04/2017 Ot 572.8 OTH SEQUELA, CHR [place] DIS 01/04/2017 Ot 572.8 OTH SEQUELA, [facility] [place] DIS 01/04/2017 Ot 285.9 ANEMIA NOS 01/04/2017 Ot 496 CHR AIRWAY OBSTRUCT NEC 01/04/2017 Ot 572.8 OTH SEQUELA, CHR [place] DIS 01/04/2017 Ot 607.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, ORGANIC ORIGN 01/04/2017 Ot 780.79 OTH MALAISE FATIGUE 01/04/2017 Ot V42.7 LIVER TRANSPLANT STATUS 01/04/2017 Ot V58.69 OTH MED,LT, CURRENT USE 01/04/2017 Ot 572.8 OTH SEQUELA, [facility] [place] DIS 01/04/2017 Ot 796.4 ABN CLINICAL FINDING NEC 01/04/2017 Ot V42.7 LIVER TRANSPLANT STATUS 01/04/2017 Ot 572.8 OTH SEQUELA, CH[facility] [place] DIS 01/04/2017 Ot 572.8 OTH SEQUELA, [facility] [place] DIS 01/04/2017 Ot 572.8 OTH SEQUELA, [facility] [place] DIS 01/04/2017 Ot 070.54 CHRONIC HEPATITIS C W/O HEPATIC COMA 01/04/2017 Ot 572.8 OTH SEQUELA, CHR [place] DIS 01/04/2017 Ot 585.3 CHRONIC KIDNEY DISEASE, STAGE III (MODER 01/04/2017 Ot 572.8 OTH SEQUELA, CH[facility] [place] DIS 01/04/2017 Ot 572.8 OTH SEQUELA, CHR [place] DIS 01/04/2017 Ot 572.8 OTH SEQUELA, [facility] [place] DIS 01/04/2017 Ot 572.8 OTH SEQUELA, [facility] [place] DIS 01/04/2017 Ot 572.8 OTH SEQUELA, [facility] DIS 01/04/2017 Ot 572.8 OTH SEQUELA, [facility] [place] DIS 01/04/2017 Ot V42.7 LIVER TRANSPLANT STATUS 01/04/2017 Ot 268.9 VITAMIN D DEFICIENCY NOS 01/04/2017 Ot 281.1 B12 DEFIC ANEMIA NEC 01/04/2017 Ot 285.9 ANEMIA NOS 01/04/2017 Ot 491.21 OBSTR CHRONIC BRONCHITIS, W (ACUTE) EXAC 01/04/2017 Ot 572.8 OTH SEQUELA, [facility] DIS 01/04/2017 Ot 585.3 CHRONIC KIDNEY DISEASE, STAGE III (MODER 01/04/2017 Ot V42.7 LIVER TRANSPLANT STATUS 01/04/2017 Ot V58.69 OTH MED,LT, CURRENT USE 01/04/2017 Ot 573.8 LIVER DISORDERS NEC 01/04/2017 Ot 593.9 RENAL URETERAL DIS NOS 01/04/2017 Ot 721.3 LUMBOSACRAL SPONDYLOSIS 01/04/2017 Ot V58.69 OTH MED,LT, CURRENT USE 01/04/2017 Ot 572.8 OTH SEQUELA, [facility] [place] DIS 01/04/2017 Ot V42.7 LIVER TRANSPLANT STATUS 01/04/2017 Ot 572.8 OTH SEQUELA, [facility] [place] DIS 01/04/2017 Ot 585.3 CHRONIC KIDNEY DISEASE, STAGE III (MODER 01/04/2017 Ot 572.8 OTH SEQUELA, CHR [place] DIS 01/04/2017 Ot 572.8 OTH SEQUELA, [facility] [place] DIS 01/04/2017 Ot 585.3 CHRONIC KIDNEY DISEASE, STAGE III (MODER 01/04/2017 Ot 572.8 OTH SEQUELA, CH[facility] [place] DIS 01/04/2017 Ot 268.9 VITAMIN D DEFICIENCY NOS 01/04/2017 Ot 275.2 DIS MAGNESIUM METABOLISM 01/04/2017 Ot 572.8 OTH SEQUELA, [facility] [place] DIS 01/04/2017 Ot 585.3 CHRONIC KIDNEY DISEASE, STAGE III (MODER 01/04/2017 Ot V42.7 LIVER TRANSPLANT STATUS 01/04/2017 Ot V58.69 OTH MED,LT, CURRENT USE 01/04/2017 Ot 573.8 LIVER DISORDERS NEC 01/04/2017 Ot 593.9 RENAL URETERAL DIS NOS 01/04/2017 Ot 789.09 ABDOMINAL PAIN, OTHER SPECIFIED SITE 01/04/2017 RAMESH STARR, PRISCILA Vieira Ot 285.9 ANEMIA NOS 01/04/2017 RAMESH STARR, PRISCILA Vieira Ot 572.8 OTH SEQUELA, [facility] [place] DIS 01/04/2017 RAMESH STARR, PRISCILA Vieira Ot 585.9 CHRONIC KIDNEY DISEASE, UNSPECIFIED 01/04/2017 EDUARDO PALACIO Ot 572.8 OTH SEQUELA, [facility] [place] DIS 01/04/2017 EDUARDO PALACIO Ot 585.9 CHRONIC KIDNEY DISEASE, UNSPECIFIED 01/04/2017 RAMESH STARR, PRISCILA Vieira Ot 285.9 ANEMIA NOS 01/04/2017 RAMESH STARR, PRISCILA Vieira Ot 572.8 OTH SEQUELA, CHR [place] DIS 01/04/2017 RAMESH STARR, PRISCILA Vieira Ot 585.9 CHRONIC KIDNEY DISEASE, UNSPECIFIED 01/04/2017 EDUARDO PALACIOBS Ot 572.8 OTH SEQUELA, [facility] [place] DIS 01/04/2017 ASIYA STARR, TEREZA Mathew Ot 572.8 OTH SEQUELA, CH[facility] [place] DIS 01/04/2017 ASIYA STARR, TEREZA Mathew Ot 585.3 CHRONIC KIDNEY DISEASE, STAGE III (MODER 01/04/2017 RAMESH STARR, PRISCILA Vieira Ot 268.9 VITAMIN D DEFICIENCY NOS 01/04/2017 RAMESH STARR, PRISCILA Vieira Ot V42.7 LIVER TRANSPLANT STATUS 01/04/2017 MARIA LUISA STARR, MICHAEL Joel Ot 780.79 OTH MALAISE FATIGUE 01/04/2017 PRISCILA CHANDLER MD Ot 585.3 CHRONIC KIDNEY DISEASE, STAGE III (MODER 01/04/2017 MARIA LUISA STARR, MICHAEL Joel Ot 719.06 JOINT EFFUSION-L/LEG 01/04/2017 MICHAEL GLASS MD Ot 719.47 JOINT PAIN-ANKLE 01/04/2017 TEREZA BRADEN MD Ot V42.7 LIVER TRANSPLANT STATUS 01/04/2017 TEREZA BRADEN MD Ot V58.44 AFTERCARE FOLLOWING ORGAN TRANSPLANT 01/04/2017 PRISCILA CHANDLER MD Ot 268.9 VITAMIN D DEFICIENCY NOS 01/04/2017 PRISCILA CHANDLER MD Ot 276.8 HYPOPOTASSEMIA 01/04/2017 PRISCILA CHANDLER MD Ot 585.3 CHRONIC KIDNEY DISEASE, STAGE III (MODER 01/04/2017 PRISCILA CHANDLER MD Ot 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 01/04/2017 MICHAEL GLASS MD Ot 275.41 HYPOCALCEMIA 01/04/2017 MICHAEL GLASS MD Ot 276.9 ELECTROLYT/FLUID DIS NEC 01/04/2017 MICHAEL GLASS MD Ot 427.89 CARDIAC DYSRHYTHMIAS NEC 01/04/2017 TEREZA BRADEN MD Ot 572.8 OTH SEQUELA, CH[facility] [place] DIS 01/04/2017 TEREZA BRADEN MD Ot 585.3 CHRONIC KIDNEY DISEASE, STAGE III (MODER 01/04/2017 TEREZA BRADEN MD Ot 790.6 ABN BLOOD CHEMISTRY NEC 01/04/2017 LOYDA DOMINGUEZ MD Ot 427.9 CARDIAC DYSRHYTHMIA NOS 01/04/2017 LOYDA DOMINGUEZ MD Ot 585.9 CHRONIC KIDNEY DISEASE, UNSPECIFIED 01/04/2017 LOYDA DOMINGUEZ MD Ot V15.81 HX OF PAST NONCOMPLIANCE 01/04/2017 MICHAEL GLASS MD Ot 721.3 LUMBOSACRAL SPONDYLOSIS 01/04/2017 MICHAEL GLASS MD Ot 722.10 LUMBAR DISC DISPLACEMENT 01/04/2017 MICHAEL GLASS MD Ot V15.88 HISTORY OF FALL 01/04/2017 MICHAEL GLASS MD Ot 722.52 LUMB/LUMBOSAC DISC DEGEN 01/04/2017 MICHAEL GLASS MD Ot 737.30 IDIOPATHIC SCOLIOSIS 01/04/2017 Ot 305.1 TOBACCO USE DISORDER 01/04/2017 Ot 427.9 CARDIAC DYSRHYTHMIA NOS 01/04/2017 Ot 585.9 CHRONIC KIDNEY DISEASE, UNSPECIFIED 01/04/2017 Ot 790.29 OTHER ABNORMAL GLUCOSE 01/04/2017 Ot V15.81 HX OF PAST NONCOMPLIANCE 01/04/2017 RAMESH STARR, PRISCILA Vieira Ot 268.9 VITAMIN D DEFICIENCY NOS 01/04/2017 RAMESH STARR, PRISCILA Vieira Ot 275.2 DIS MAGNESIUM METABOLISM 01/04/2017 PRISCILA CHANDLER MD Ot 585.3 CHRONIC KIDNEY DISEASE, STAGE III (MODER 01/04/2017 PRISCILA CHANDLER MD Ot 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 01/04/2017 PRISCILA CHANDLER MD Ot 268.9 VITAMIN D DEFICIENCY NOS 01/04/2017 PRISCILA CHANDLER MD Ot 275.2 DIS MAGNESIUM METABOLISM 01/04/2017 PRISCILA CHANDLER MD Ot 585.3 CHRONIC KIDNEY DISEASE, STAGE III (MODER 01/04/2017 Ot 338.29 OTHER CHRONIC PAIN 01/04/2017 Ot 573.9 LIVER DISORDER NOS 01/04/2017 Ot 729.82 CRAMP IN LIMB 01/04/2017 Ot V58.69 OTH MED,LT, CURRENT USE 01/04/2017 Ot 268.9 VITAMIN D DEFICIENCY NOS 01/04/2017 Ot 275.2 DIS MAGNESIUM METABOLISM 01/04/2017 Ot 403.90 HYPTNSV CHR KID DIS, UNSPEC, W CHR KD ST 01/04/2017 Ot 585.3 CHRONIC KIDNEY DISEASE, STAGE III (MODER 01/04/2017 MARIA LUISA STARR, MICHAEL Joel Ot 729.82 CRAMP IN LIMB 01/04/2017 MARIA LUISA STARR, MICHAEL Joel Ot 780.60 FEVER, UNSPECIFIED 01/04/2017 MICHAEL GLASS MD Ot V58.69 OTH MED,LT,CURRENT USE 01/04/2017 TEREZA BRADEN MD Ot 571.5 CIRRHOSIS OF LIVER NOS 01/04/2017 TEREZA BRADEN MD Ot V42.7 LIVER TRANSPLANT STATUS 01/04/2017 MICHAEL GLASS MD Ot 573.9 LIVER DISORDER NOS 01/04/2017 MICHAEL GLASS MD Ot 780.60 FEVER, UNSPECIFIED 01/04/2017 MICHAEL GLASS MD Ot V42.7 LIVER TRANSPLANT STATUS 01/04/2017 EDUARDO PALACIO Ot 268.9 VITAMIN D DEFICIENCY NOS 01/04/2017 [place] [facility] [place] 272.4 HYPERLIPIDEMIA NEC/NOS 01/04/2017 EDUARDO PALACIOBS Ot V42.7 LIVER TRANSPLANT STATUS 01/04/2017 EDUARDO PALACIO Ot V58.69 OTH MED,LT,CURRENT USE 01/04/2017 MARIA LUISA STARR, MICHAEL Joel Ot F17.210 NICOTINE DEPENDENCE, CIGARETTES, UNCOMPL 01/04/2017 MICHAEL GLASS MD Ot R05 COUGH 01/04/2017 MICHAEL GLASS MD Ot R10.9 UNSPECIFIED ABDOMINAL PAIN 01/04/2017 MICHAEL GLASS MD Ot R91.1 SOLITARY PULMONARY NODULE 01/04/2017 MARJAN STANLEY DO Ot B49 UNSPECIFIED MYCOSIS 01/04/2017 MARJAN STANLEY DO Ot R91.8 OTHER NONSPECIFIC ABNORMAL FINDING OF BRENT 01/04/2017 MARJAN STANLEY DO Ot Z94.4 LIVER TRANSPLANT STATUS 01/04/2017 KIMBERLEY HILL DO Ot J44.9 CHRONIC OBSTRUCTIVE PULMONARY DISEASE, U 01/04/2017 KIMBERLEY HILL DO Ot R91.8 OTHER NONSPECIFIC ABNORMAL FINDING OF BRENT 01/04/2017 PRISCILA CHANDLER MD Ot E55.9 VITAMIN D DEFICIENCY, UNSPECIFIED 01/04/2017 PRISCILA CHANDLER MD Ot E83.42 HYPOMAGNESEMIA 01/04/2017 PRISCILA CHANDLER MD Ot K72.90 HEPATIC FAILURE, UNSPECIFIED WITHOUT COM 01/04/2017 PRISCILA CHANDLER MD Ot N18.3 CHRONIC KIDNEY DISEASE, STAGE 3 (MODERAT 01/04/2017 TEREZA BRADEN MD Ot K74.60 UNSPECIFIED CIRRHOSIS OF LIVER 01/04/2017 Ot Z51.81 ENCOUNTER FOR THERAPEUTIC DRUG LEVEL MON 01/04/2017 Ot Z79.899 OTHER CARE HOME (CURRENT) DRUG THERAPY 01/04/2017 Ot Z94.4 LIVER TRANSPLANT STATUS 01/04/2017 MICHAEL GLASS MD Ot K72.90 HEPATIC FAILURE, UNSPECIFIED WITHOUT COM 01/04/2017 TEREZA BRADEN MD Ot K74.60 UNSPECIFIED CIRRHOSIS OF LIVER 01/04/2017 EMELIA LOZOYA APRN Ot F17.200 NICOTINE DEPENDENCE, UNSPECIFIED, UNCOMP 01/04/2017 EMELIA LOZOYA APRN Ot J44.9 CHRONIC OBSTRUCTIVE PULMONARY DISEASE, U 01/04/2017 EMELIA LOZOYA APRN Ot F17.200 NICOTINE DEPENDENCE, UNSPECIFIED, UNCOMP 01/04/2017 EMELIA LOZOYA APRN Ot J44.9 CHRONIC OBSTRUCTIVE PULMONARY DISEASE, U 01/04/2017 EMELIA LOZOYA APRN Ot R91.8 OTHER NONSPECIFIC ABNORMAL FINDING OF BRENT 01/04/2017 TEREZA BRADEN MD Ot K74.60 UNSPECIFIED CIRRHOSIS OF LIVER 01/04/2017 TEREZA BRADEN MD Ot E83.42 HYPOMAGNESEMIA 01/04/2017 TEREZA BRADEN MD Ot Z94.4 LIVER TRANSPLANT STATUS 01/04/2017 RAMESH STARR, PRISCILA Vieira Ot E55.9 VITAMIN D DEFICIENCY, UNSPECIFIED 01/04/2017 RAMESH STARR, PRISCILA Vieira Ot E83.42 HYPOMAGNESEMIA 01/04/2017 RAMESH STARR, PRISCILA B Ot J20.9 ACUTE BRONCHITIS, UNSPECIFIED 01/04/2017 RAMESH STARR, PRISCILA Vieira Ot N18.3 CHRONIC KIDNEY DISEASE, STAGE 3 (MODERAT 01/04/2017 TEREZA BRADEN MD Ot K74.60 UNSPECIFIED CIRRHOSIS OF LIVER 01/04/2017 RAMESH STARR, PRISCILA Vieira Ot E55.9 VITAMIN D DEFICIENCY, UNSPECIFIED 01/04/2017 RAMESH STARR, PRISCILA Vieira Ot E83.42 HYPOMAGNESEMIA 01/04/2017 RAMESH STARR, PRISCILA B Ot J20.9 ACUTE BRONCHITIS, UNSPECIFIED 01/04/2017 RAMESH STARR, PRISCILA B Ot N18.3 CHRONIC KIDNEY DISEASE, STAGE 3 (MODERAT 01/05/2017 TEREZA BRADEN MD Ot K74.60 UNSPECIFIED CIRRHOSIS OF LIVER 01/21/2017 Ot V42.7 LIVER TRANSPLANT STATUS 01/21/2017 Ot V58.44 AFTERCARE FOLLOWING ORGAN TRANSPLANT 01/21/2017 Ot V58.69 OTH MED,LT, CURRENT USE 01/21/2017 Ot 572.8 OTH SEQUELA, CHR LILIANA DIS 01/21/2017 Ot 276.8 HYPOPOTASSEMIA 01/21/2017 Ot 572.8 OTH SEQUELA, CHR LILIANA DIS 01/21/2017 Ot 585.3 CHRONIC KIDNEY DISEASE, STAGE III (MODER 01/21/2017 Ot 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 01/21/2017 Ot 571.5 CIRRHOSIS OF LIVER NOS 01/21/2017 Ot V42.7 LIVER TRANSPLANT STATUS 01/21/2017 Ot 572.8 OTH SEQUELA, CHR LILIANA DIS 01/21/2017 Ot 585.3 CHRONIC KIDNEY DISEASE, STAGE III (MODER 01/21/2017 Ot 285.9 ANEMIA NOS 01/21/2017 Ot 585.3 CHRONIC KIDNEY DISEASE, STAGE III (MODER 01/21/2017 Ot 572.8 OTH SEQUELA, CHR LILIANA DIS 01/21/2017 Ot 572.8 OTH SEQUELA, CHR LILIANA DIS 01/21/2017 Ot 572.8 OTH SEQUELA, CHR LILIANA DIS 01/21/2017 Ot 585.3 CHRONIC KIDNEY DISEASE, STAGE III (MODER 01/21/2017 Ot 572.8 OTH SEQUELA, CHR LILIANA DIS 01/21/2017 Ot 572.8 OTH SEQUELA, CHR LILIANA DIS 01/21/2017 Ot 070.54 CHRONIC HEPATITIS C W/O HEPATIC COMA 01/21/2017 Ot 285.9 ANEMIA NOS 01/21/2017 Ot 491.20 OBSTR CHRONIC BRONCHITIS, W/O EXACERBATI 01/21/2017 Ot 572.8 OTH SEQUELA, CHR LILIANA DIS 01/21/2017 Ot 585.9 CHRONIC KIDNEY DISEASE, UNSPECIFIED 01/21/2017 Ot V42.7 LIVER TRANSPLANT STATUS 01/21/2017 Ot 572.8 OTH SEQUELA, CHR LILIANA DIS 01/21/2017 Ot 572.8 OTH SEQUELA, CHR LILIANA DIS 01/21/2017 Ot 585.9 CHRONIC KIDNEY DISEASE, UNSPECIFIED 01/21/2017 Ot 572.8 OTH SEQUELA, CHR ILLIANA DIS 01/21/2017 Ot 585.9 CHRONIC KIDNEY DISEASE, UNSPECIFIED 01/21/2017 Ot 572.8 OTH SEQUELA, CHR LILIANA DIS 01/21/2017 Ot 585.3 CHRONIC KIDNEY DISEASE, STAGE III (MODER 01/21/2017 Ot 572.8 OTH SEQUELA, CHR LILIANA DIS 01/21/2017 Ot 572.8 OTH SEQUELA, CHR LILIANA DIS 01/21/2017 Ot 285.9 ANEMIA NOS 01/21/2017 Ot 496 CHR AIRWAY OBSTRUCT NEC 01/21/2017 Ot 572.8 OTH SEQUELA, [facility] LILIANA DIS 01/21/2017 Ot 607.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, ORGANIC ORIGN 01/21/2017 Ot 780.79 OTH MALAISE FATIGUE 01/21/2017 Ot V42.7 LIVER TRANSPLANT STATUS 01/21/2017 Ot V58.69 OTH MED,LT, CURRENT USE 01/21/2017 Ot 572.8 OTH SEQUELA, CHR LILIANA DIS 01/21/2017 Ot 796.4 ABN CLINICAL FINDING NEC 01/21/2017 Ot V42.7 LIVER TRANSPLANT STATUS 01/21/2017 Ot 572.8 OTH SEQUELA, CHR LILIANA DIS 01/21/2017 Ot 572.8 OTH SEQUELA, CHR LILIANA DIS 01/21/2017 Ot 572.8 OTH SEQUELA, [facility] LILIANA DIS 01/21/2017 Ot 070.54 CHRONIC HEPATITIS C W/O HEPATIC COMA 01/21/2017 Ot 572.8 OTH SEQUELA, CHR LILIANA DIS 01/21/2017 Ot 585.3 CHRONIC KIDNEY DISEASE, STAGE III (MODER 01/21/2017 Ot 572.8 OTH SEQUELA, CHR LILIANA DIS 01/21/2017 Ot 572.8 OTH SEQUELA, CHR LILIANA DIS 01/21/2017 Ot 572.8 OTH SEQUELA, CHR LILIANA DIS 01/21/2017 Ot 572.8 OTH SEQUELA, CHR LILIANA DIS 01/21/2017 Ot 572.8 OTH SEQUELA, [facility] LILIANA DIS 01/21/2017 Ot 572.8 OTH SEQUELA, CHR LILIANA DIS 01/21/2017 Ot V42.7 LIVER TRANSPLANT STATUS 01/21/2017 Ot 268.9 VITAMIN D DEFICIENCY NOS 01/21/2017 Ot 281.1 B12 DEFIC ANEMIA NEC 01/21/2017 Ot 285.9 ANEMIA NOS 01/21/2017 Ot 491.21 OBSTR CHRONIC BRONCHITIS, W (ACUTE) EXAC 01/21/2017 Ot 572.8 OTH SEQUELA, CHR LILIANA DIS 01/21/2017 Ot 585.3 CHRONIC KIDNEY DISEASE, STAGE III (MODER 01/21/2017 Ot V42.7 LIVER TRANSPLANT STATUS 01/21/2017 Ot V58.69 OTH MED,LT, CURRENT USE 01/21/2017 Ot 573.8 LIVER DISORDERS NEC 01/21/2017 Ot 593.9 RENAL URETERAL DIS NOS 01/21/2017 Ot 721.3 LUMBOSACRAL SPONDYLOSIS 01/21/2017 Ot V58.69 OTH MED,LT, CURRENT USE 01/21/2017 Ot 572.8 OTH SEQUELA, CHR LILIANA DIS 01/21/2017 Ot V42.7 LIVER TRANSPLANT STATUS 01/21/2017 Ot 572.8 OTH SEQUELA, CHR LILIANA DIS 01/21/2017 Ot 585.3 CHRONIC KIDNEY DISEASE, STAGE III (MODER 01/21/2017 Ot 572.8 OTH SEQUELA, CHR LILIANA DIS 01/21/2017 Ot 572.8 OTH SEQUELA, CHR LILIANA DIS 01/21/2017 Ot 585.3 CHRONIC KIDNEY DISEASE, STAGE III (MODER 01/21/2017 Ot 572.8 OTH SEQUELA, CHR LILIANA DIS 01/21/2017 Ot 268.9 VITAMIN D DEFICIENCY NOS 01/21/2017 Ot 275.2 DIS MAGNESIUM METABOLISM 01/21/2017 Ot 572.8 OTH SEQUELA, CHR LILIANA DIS 01/21/2017 Ot 585.3 CHRONIC KIDNEY DISEASE, STAGE III (MODER 01/21/2017 Ot V42.7 LIVER TRANSPLANT STATUS 01/21/2017 Ot V58.69 OTH MED,LT, CURRENT USE 01/21/2017 Ot 573.8 LIVER DISORDERS NEC 01/21/2017 Ot 593.9 RENAL URETERAL DIS NOS 01/21/2017 Ot 789.09 ABDOMINAL PAIN, OTHER SPECIFIED SITE 01/21/2017 RAMESH STARR, PRISCILA [place] Ot 285.9 ANEMIA NOS 01/21/2017 RAMESH SATRR, PRISCILA [place] Ot 572.8 OTH SEQUELA, [facility] LILIA[place] DIS 01/21/2017 PRISCILA CHANDLER MD Ot 585.9 CHRONIC KIDNEY DISEASE, UNSPECIFIED 01/21/2017 EDUARDO PALACIO Ot 572.8 OTH SEQUELA, CHR LIL[place] DIS 01/21/2017 EDUARDO PALACIOBS Ot 585.9 CHRONIC KIDNEY DISEASE, UNSPECIFIED 01/21/2017 PRISCILA CHANDLER MD Ot 285.9 ANEMIA NOS 01/21/2017 PRISCILA CHANDLER MD Ot 572.8 OTH SEQUELA, CHR LIL[place] DIS 01/21/2017 PRISCILA CHANDLER MD Ot 585.9 CHRONIC KIDNEY DISEASE, UNSPECIFIED 01/21/2017 EDUARDO PALACIO Ot 572.8 OTH SEQUELA, CHR LIL[place] DIS 01/21/2017 TEREZA BRADEN MD Ot 572.8 OTH SEQUELA, CHR LILIANA DIS 01/21/2017 TEREZA BRADEN MD Ot 585.3 CHRONIC KIDNEY DISEASE, STAGE III (MODER 01/21/2017 PRISCILA CHANDLER MD Ot 268.9 VITAMIN D DEFICIENCY NOS 01/21/2017 PRISCILA CHANDLER MD Ot V42.7 LIVER TRANSPLANT STATUS 01/21/2017 MARIA LUISA STARR, MICHAEL Joel Ot 780.79 OTH MALAISE FATIGUE 01/21/2017 PRISCILA CHANDLER MD Ot 585.3 CHRONIC KIDNEY DISEASE, STAGE III (MODER 01/21/2017 MARIA LUISA STARR, MICHAEL Joel Ot 719.06 JOINT EFFUSION-L/LEG 01/21/2017 MARIA LUISA STARR, MICHAEL Joel Ot 719.47 JOINT PAIN-ANKLE 01/21/2017 TEREZA BRADEN MD Ot V42.7 LIVER TRANSPLANT STATUS 01/21/2017 TEREZA BRADEN MD Ot V58.44 AFTERCARE FOLLOWING ORGAN TRANSPLANT 01/21/2017 PRISCILA CHANDLER MD Ot 268.9 VITAMIN D DEFICIENCY NOS 01/21/2017 PRISCILA CHANDLER MD Ot 276.8 HYPOPOTASSEMIA 01/21/2017 PRISCILA CHANDLER MD Ot 585.3 CHRONIC KIDNEY DISEASE, STAGE III (MODER 01/21/2017 PRISCILA CHANDLER MD Ot 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 01/21/2017 MARIA LUISA STARR, MICHAEL Joel Ot 275.41 HYPOCALCEMIA 01/21/2017 MARIA LUISA STARR, MICHAEL Joel Ot 276.9 ELECTROLYT/FLUID DIS NEC 01/21/2017 MARIA LUISA STARR, MICHAEL Joel Ot 427.89 CARDIAC DYSRHYTHMIAS NEC 01/21/2017 TEREZA BRADEN MD Ot 572.8 OTH SEQUELA, CHR LILIANA DIS 01/21/2017 TEREZA BRADEN MD Ot 585.3 CHRONIC KIDNEY DISEASE, STAGE III (MODER 01/21/2017 TEREZA BRADEN MD Ot 790.6 ABN BLOOD CHEMISTRY NEC 01/21/2017 LOYDA DOMINGUEZ MD Ot 427.9 CARDIAC DYSRHYTHMIA NOS 01/21/2017 LOYDA DOMINGUEZ MD Ot 585.9 CHRONIC KIDNEY DISEASE, UNSPECIFIED 01/21/2017 LOYDA DOMINGUEZ MD Ot V15.81 HX OF PAST NONCOMPLIANCE 01/21/2017 MICHAEL GLASS MD Ot 721.3 LUMBOSACRAL SPONDYLOSIS 01/21/2017 MARIA LUISA STARR, MICHAEL Joel Ot 722.10 LUMBAR DISC DISPLACEMENT 01/21/2017 MARIA LUISA STARR, MICHAEL Joel Ot V15.88 HISTORY OF FALL 01/21/2017 MARIA LUISA STARR, MICHAEL Joel Ot 722.52 LUMB/LUMBOSAC DISC DEGEN 01/21/2017 MARIA LUISA STARR, MICHAEL Joel Ot 737.30 IDIOPATHIC SCOLIOSIS 01/21/2017 Ot 305.1 TOBACCO USE DISORDER 01/21/2017 Ot 427.9 CARDIAC DYSRHYTHMIA NOS 01/21/2017 Ot 585.9 CHRONIC KIDNEY DISEASE, UNSPECIFIED 01/21/2017 Ot 790.29 OTHER ABNORMAL GLUCOSE 01/21/2017 Ot V15.81 HX OF PAST NONCOMPLIANCE 01/21/2017 PRISCILA CHANDLER MD Ot 268.9 VITAMIN D DEFICIENCY NOS 01/21/2017 PRISCILA CHANDLER MD Ot 275.2 DIS MAGNESIUM METABOLISM 01/21/2017 PRISCILA CHANDLER MD Ot 585.3 CHRONIC KIDNEY DISEASE, STAGE III (MODER 01/21/2017 PRISCILA CHANDLER MD Ot 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 01/21/2017 PRISCILA CHANDLER MD Ot 268.9 VITAMIN D DEFICIENCY NOS 01/21/2017 PRISCILA CHANDLER MD Ot 275.2 DIS MAGNESIUM METABOLISM 01/21/2017 PRISCILA CHANDLER MD Ot 585.3 CHRONIC KIDNEY DISEASE, STAGE III (MODER 01/21/2017 Ot 338.29 OTHER CHRONIC PAIN 01/21/2017 Ot 573.9 LIVER DISORDER NOS 01/21/2017 Ot 729.82 CRAMP IN LIMB 01/21/2017 Ot V58.69 OTH MED,LT, CURRENT USE 01/21/2017 Ot 268.9 VITAMIN D DEFICIENCY NOS 01/21/2017 Ot 275.2 DIS MAGNESIUM METABOLISM 01/21/2017 Ot 403.90 HYPTNSV CHR KID DIS, UNSPEC, W CHR KD ST 01/21/2017 Ot 585.3 CHRONIC KIDNEY DISEASE, STAGE III (MODER 01/21/2017 MICHAEL GLASS MD Ot 729.82 CRAMP IN LIMB 01/21/2017 MICHAEL GLASS MD Ot 780.60 FEVER, UNSPECIFIED 01/21/2017 MICHAEL GLASS MD Ot V58.69 OTH MED,LT,CURRENT USE 01/21/2017 TEREZA BRADEN MD Ot 571.5 CIRRHOSIS OF LIVER NOS 01/21/2017 TEREZA BRADEN MD Ot V42.7 LIVER TRANSPLANT STATUS 01/21/2017 MICHAEL GLASS MD Ot 573.9 LIVER DISORDER NOS 01/21/2017 MICHAEL GLASS MD Ot 780.60 FEVER, UNSPECIFIED 01/21/2017 MICHAEL GLASS MD Ot V42.7 LIVER TRANSPLANT STATUS 01/21/2017 EDUARDO PALACIO Ot 268.9 VITAMIN D DEFICIENCY NOS 01/21/2017 EDUARDO PALACIO Ot 272.4 HYPERLIPIDEMIA NEC/NOS 01/21/2017 EDUARDO PALACIO Ot V42.7 LIVER TRANSPLANT STATUS 01/21/2017 EDUARDO PALACIO Ot V58.69 OTH MED,LT,CURRENT USE 01/21/2017 MICHAEL GLASS MD Ot F17.210 NICOTINE DEPENDENCE, CIGARETTES, UNCOMPL 01/21/2017 MICHAEL GLASS MD Ot R05 COUGH 01/21/2017 MICHAEL GLASS MD Ot R10.9 UNSPECIFIED ABDOMINAL PAIN 01/21/2017 MICHAEL GLASS MD Ot R91.1 SOLITARY PULMONARY NODULE 01/21/2017 MARJAN STANLEY DO Ot B49 UNSPECIFIED MYCOSIS 01/21/2017 MARJAN STANLEY DO Ot R91.8 OTHER NONSPECIFIC ABNORMAL FINDING OF BRENT 01/21/2017 MARJAN STANLEY DO Ot Z94.4 LIVER TRANSPLANT STATUS 01/21/2017 KIMBERLEY HILL DO Ot J44.9 CHRONIC OBSTRUCTIVE PULMONARY DISEASE, U 01/21/2017 KIMBERLEY HILL DO Ot R91.8 OTHER NONSPECIFIC ABNORMAL FINDING OF BRENT 01/21/2017 PRISCILA CHANDLER MD Ot E55.9 VITAMIN D DEFICIENCY, UNSPECIFIED 01/21/2017 PRISCILA CHANDLER MD Ot E83.42 HYPOMAGNESEMIA 01/21/2017 PRISCILA CHANDLER MD Ot K72.90 HEPATIC FAILURE, UNSPECIFIED WITHOUT COM 01/21/2017 PRISCILA CHANDLER MD Ot N18.3 CHRONIC KIDNEY DISEASE, STAGE 3 (MODERAT 01/21/2017 TEREZA BRADEN MD Ot K74.60 UNSPECIFIED CIRRHOSIS OF LIVER 01/21/2017 Ot Z51.81 ENCOUNTER FOR THERAPEUTIC DRUG LEVEL MON 01/21/2017 Ot Z79.899 OTHER CARE HOME (CURRENT) DRUG THERAPY 01/21/2017 Ot Z94.4 LIVER TRANSPLANT STATUS 01/21/2017 MARIA LUISA STARR, MICHAEL Joel Ot K72.90 HEPATIC FAILURE, UNSPECIFIED WITHOUT COM 01/21/2017 TEREZA BRADEN MD Ot K74.60 UNSPECIFIED CIRRHOSIS OF LIVER 01/21/2017 DEVORAEMELIA ONEAL PROFESSIONAL DRIVER Ot F17.200 NICOTINE DEPENDENCE, UNSPECIFIED, UNCOMP 01/21/2017 DEVORAEMELIA ONEAL PROFESSIONAL DRIVER Ot J44.9 CHRONIC OBSTRUCTIVE PULMONARY DISEASE, U 01/21/2017 DEVORAEMELIA ONEAL PROFESSIONAL DRIVER Ot F17.200 NICOTINE DEPENDENCE, UNSPECIFIED, UNCOMP 01/21/2017 DEVORAEMELIA ONEAL PROFESSIONAL DRIVER Ot J44.9 CHRONIC OBSTRUCTIVE PULMONARY DISEASE, U 01/21/2017 EMELIA LOZOYA APRN Ot R91.8 OTHER NONSPECIFIC ABNORMAL FINDING OF BRENT 01/21/2017 TEREZA BRADEN MD Ot K74.60 UNSPECIFIED CIRRHOSIS OF LIVER 01/21/2017 TEREZA BRADEN MD Ot E83.42 HYPOMAGNESEMIA 01/21/2017 TEREZA BRADEN MD Ot Z94.4 LIVER TRANSPLANT STATUS 01/21/2017 RAMESH STARR, PRISCILA Vieira Ot E55.9 VITAMIN D DEFICIENCY, UNSPECIFIED 01/21/2017 RAMESH STARR, PRISCILA Vieira Ot E83.42 HYPOMAGNESEMIA 01/21/2017 RAMESH STARR, PRISCILA Vieira Ot J20.9 ACUTE BRONCHITIS, UNSPECIFIED 01/21/2017 RAMESH STARR, PRISCILA Vieira Ot N18.3 CHRONIC KIDNEY DISEASE, STAGE 3 (MODERAT 01/21/2017 TEREZA BRADEN MD Ot K74.60 UNSPECIFIED CIRRHOSIS OF LIVER 01/21/2017 Ot 573.8 LIVER DISORDERS NEC 01/21/2017 Ot 593.9 RENAL URETERAL DIS NOS 01/21/2017 Ot 789.09 ABDOMINAL PAIN, OTHER SPECIFIED SITE 01/21/2017 Ot 305.1 TOBACCO USE DISORDER 01/21/2017 Ot 427.9 CARDIAC DYSRHYTHMIA NOS 01/21/2017 Ot 585.9 CHRONIC KIDNEY DISEASE, UNSPECIFIED 01/21/2017 Ot 790.29 OTHER ABNORMAL GLUCOSE 01/21/2017 Ot V15.81 HX OF PAST NONCOMPLIANCE 01/21/2017 Ot Z51.81 ENCOUNTER FOR THERAPEUTIC DRUG LEVEL MON 01/21/2017 Ot Z79.899 OTHER RENTAL MANAGEMENT TRAINEE (CURRENT) DRUG THERAPY 01/21/2017 Ot Z94.4 LIVER TRANSPLANT STATUS 01/21/2017 MARIA LUISA STARR, MICHAEL Joel Ot K72.90 HEPATIC FAILURE, UNSPECIFIED WITHOUT COM 01/21/2017 MAXIME AMAYA PROFESSIONAL DRIVER Ot B19.20 UNSPECIFIED VIRAL HEPATITIS C WITHOUT HE 01/21/2017 MAXIME AMAYA PROFESSIONAL DRIVER Ot F32.9 MAJOR DEPRESSIVE DISORDER, SINGLE EPISOD 01/21/2017 MAIXME AMAYA PROFESSIONAL DRIVER Ot F41.9 ANXIETY DISORDER, UNSPECIFIED 01/21/2017 MAXIME AMAYA PROFESSIONAL DRIVER Ot G89.29 OTHER CHRONIC PAIN 01/21/2017 MAXIME AMAYA APRN Ot J43.9 EMPHYSEMA, UNSPECIFIED 01/21/2017 MAXIME AMAYA APRN Ot J45.909 UNSPECIFIED ASTHMA, UNCOMPLICATED 01/21/2017 MAXIME AMAYA APRN Ot M19.90 UNSPECIFIED OSTEOARTHRITIS, UNSPECIFIED 01/21/2017 MAXIME AMAYA APRN Ot N18.9 CHRONIC KIDNEY DISEASE, UNSPECIFIED 01/21/2017 MAXIME AMAYA APRN Ot R10.11 RIGHT UPPER QUADRANT PAIN 01/21/2017 MAXIME AMAYA APRN Ot R10.31 RIGHT LOWER QUADRANT PAIN 01/21/2017 MAXIME AMAYA APRN Ot Z87.19 PERSONAL HISTORY OF OTHER DISEASES OF TH 01/21/2017 MAXIME AMAYA PROFESSIONAL DRIVER Ot Z94.4 LIVER TRANSPLANT STATUS 01/21/2017 MAXIME AMAYA PROFESSIONAL DRIVER Ot F17.210 NICOTINE DEPENDENCE, CIGARETTES, UNCOMPL 01/21/2017 MAXIME AMAYA APRN Ot F32.9 MAJOR DEPRESSIVE DISORDER, SINGLE EPISOD 01/21/2017 MAXIME AMAYA PROFESSIONAL DRIVER Ot F41.9 ANXIETY DISORDER, UNSPECIFIED 01/21/2017 MAXIME AMAYA APRN Ot J43.9 EMPHYSEMA, UNSPECIFIED 01/21/2017 MAXIME AMAYA APRN Ot J45.909 UNSPECIFIED ASTHMA, UNCOMPLICATED 01/21/2017 MAXIME AMAYA PROFESSIONAL DRIVER Ot M19.90 UNSPECIFIED OSTEOARTHRITIS, UNSPECIFIED 01/21/2017 MAXIME AMAYA PROFESSIONAL DRIVER Ot R10.11 RIGHT UPPER QUADRANT PAIN 01/21/2017 MAXIME AMAYA PROFESSIONAL DRIVER Ot R10.31 RIGHT LOWER QUADRANT PAIN 01/21/2017 MAXIME AMAYA PROFESSIONAL DRIVER Ot Z85.05 PERSONAL HISTORY OF MALIGNANT NEOPLASM O 01/21/2017 MAXIME AMAYA PROFESSIONAL DRIVER Ot Z87.19 PERSONAL HISTORY OF OTHER DISEASES OF TH 01/21/2017 MAXIME AMAYA PROFESSIONAL DRIVER Ot Z94.4 LIVER TRANSPLANT STATUS 01/23/2017 MAXIME AMAYA PROFESSIONAL DRIVER Ot B19.20 UNSPECIFIED VIRAL HEPATITIS C WITHOUT HE 01/23/2017 MAXIME AMAYA PROFESSIONAL DRIVER Ot F32.9 MAJOR DEPRESSIVE DISORDER, SINGLE EPISOD 01/23/2017 MAXIME AMAYA PROFESSIONAL DRIVER Ot F41.9 ANXIETY DISORDER, UNSPECIFIED 01/23/2017 MAXIME AMAYA PROFESSIONAL DRIVER Ot G89.29 OTHER CHRONIC PAIN 01/23/2017 MAXIME AMAYA APRN Ot J43.9 EMPHYSEMA, UNSPECIFIED 01/23/2017 MAXIME AMAYA PROFESSIONAL DRIVER Ot J45.909 UNSPECIFIED ASTHMA, UNCOMPLICATED 01/23/2017 MAXIME AMAYA PROFESSIONAL DRIVER Ot M19.90 UNSPECIFIED OSTEOARTHRITIS, UNSPECIFIED 01/23/2017 MAXIME AMAYA PROFESSIONAL DRIVER Ot N18.9 CHRONIC KIDNEY DISEASE, UNSPECIFIED 01/23/2017 MAXIME AMAYA PROFESSIONAL DRIVER Ot R10.11 RIGHT UPPER QUADRANT PAIN 01/23/2017 MAXIME AMAYA PROFESSIONAL DRIVER Ot R10.31 RIGHT LOWER QUADRANT PAIN 01/23/2017 MAXIME AMAYA PROFESSIONAL DRIVER Ot Z87.19 PERSONAL HISTORY OF OTHER DISEASES OF TH 01/23/2017 MAXIME AMAYA PROFESSIONAL DRIVER Ot Z94.4 LIVER TRANSPLANT STATUS 01/23/2017 MAXIME AMAYA PROFESSIONAL DRIVER Ot F17.210 NICOTINE DEPENDENCE, CIGARETTES, UNCOMPL 01/23/2017 MAXIME AMAYA PROFESSIONAL DRIVER Ot F32.9 MAJOR DEPRESSIVE DISORDER, SINGLE EPISOD 01/23/2017 MAXIME AMAYA PROFESSIONAL DRIVER Ot F41.9 ANXIETY DISORDER, UNSPECIFIED 01/23/2017 MAXIME AMAYA PROFESSIONAL DRIVER Ot J43.9 EMPHYSEMA, UNSPECIFIED 01/23/2017 MAXIME AMAYA PROFESSIONAL DRIVER Ot J45.909 UNSPECIFIED ASTHMA, UNCOMPLICATED 01/23/2017 MAXIME AMAYA PROFESSIONAL DRIVER Ot M19.90 UNSPECIFIED OSTEOARTHRITIS, UNSPECIFIED 01/23/2017 MAXIME AMAYA PROFESSIONAL DRIVER Ot R10.11 RIGHT UPPER QUADRANT PAIN 01/23/2017 MAXIME AAMYA PROFESSIONAL DRIVER Ot R10.31 RIGHT LOWER QUADRANT PAIN 01/23/2017 MAXIME AMAYA PROFESSIONAL DRIVER Ot Z85.05 PERSONAL HISTORY OF MALIGNANT NEOPLASM O 01/23/2017 MAXIME AMAYA PROFESSIONAL DRIVER Ot Z87.19 PERSONAL HISTORY OF OTHER DISEASES OF TH 01/23/2017 MAXIME AMAYA PROFESSIONAL DRIVER Ot Z94.4 LIVER TRANSPLANT STATUS 01/26/2017 RAMESH STARR, PRISCILA Vieira Ot N18.3 CHRONIC KIDNEY DISEASE, STAGE 3 (MODERAT 01/30/2017 Ot V42.7 LIVER TRANSPLANT STATUS 01/30/2017 Ot V58.44 AFTERCARE FOLLOWING ORGAN TRANSPLANT 01/30/2017 Ot V58.69 OTH MED,LT, CURRENT USE 01/30/2017 Ot 571.5 CIRRHOSIS OF LIVER NOS 01/30/2017 Ot V42.7 LIVER TRANSPLANT STATUS 01/30/2017 Ot 572.8 OTH SEQUELA, CHR LILIANA DIS 01/30/2017 Ot 585.3 CHRONIC KIDNEY DISEASE, STAGE III (MODER 01/30/2017 Ot 285.9 ANEMIA NOS 01/30/2017 Ot 585.3 CHRONIC KIDNEY DISEASE, STAGE III (MODER 01/30/2017 Ot 572.8 OTH SEQUELA, CHR LILIANA DIS 01/30/2017 Ot 572.8 OTH SEQUELA, CHR LILIANA DIS 01/30/2017 Ot 572.8 OTH SEQUELA, CHR LILIANA DIS 01/30/2017 Ot 585.3 CHRONIC KIDNEY DISEASE, STAGE III (MODER 01/30/2017 Ot 572.8 OTH SEQUELA, CHR LILIANA DIS 01/30/2017 Ot 572.8 OTH SEQUELA, CHR LILIANA DIS 01/30/2017 Ot 070.54 CHRONIC HEPATITIS C W/O HEPATIC COMA 01/30/2017 Ot 285.9 ANEMIA NOS 01/30/2017 Ot 491.20 OBSTR CHRONIC BRONCHITIS, W/O EXACERBATI 01/30/2017 Ot 572.8 OTH SEQUELA, CHR LILIANA DIS 01/30/2017 Ot 585.9 CHRONIC KIDNEY DISEASE, UNSPECIFIED 01/30/2017 Ot V42.7 LIVER TRANSPLANT STATUS 01/30/2017 Ot 572.8 OTH SEQUELA, CHR LILIANA DIS 01/30/2017 Ot 572.8 OTH SEQUELA, CHR LILIANA DIS 01/30/2017 Ot 585.9 CHRONIC KIDNEY DISEASE, UNSPECIFIED 01/30/2017 Ot 572.8 OTH SEQUELA, CHR LILIANA DIS 01/30/2017 Ot 585.9 CHRONIC KIDNEY DISEASE, UNSPECIFIED 01/30/2017 Ot 572.8 OTH SEQUELA, CHR LILIANA DIS 01/30/2017 Ot 585.3 CHRONIC KIDNEY DISEASE, STAGE III (MODER 01/30/2017 Ot 572.8 OTH SEQUELA, CHR LILIANA DIS 01/30/2017 Ot 572.8 OTH SEQUELA, [facility] DIS 01/30/2017 Ot 285.9 ANEMIA NOS 01/30/2017 Ot 496 CHR AIRWAY OBSTRUCT NEC 01/30/2017 Ot 572.8 OTH SEQUELA, [facility] LILIANA DIS 01/30/2017 Ot 607.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, ORGANIC ORIGN 01/30/2017 Ot 780.79 OTH MALAISE FATIGUE 01/30/2017 Ot V42.7 LIVER TRANSPLANT STATUS 01/30/2017 Ot V58.69 OTH MED,LT, CURRENT USE 01/30/2017 Ot 572.8 OTH SEQUELA, [facility] DIS 01/30/2017 Ot 796.4 ABN CLINICAL FINDING NEC 01/30/2017 Ot V42.7 LIVER TRANSPLANT STATUS 01/30/2017 Ot 572.8 OTH SEQUELA, [facility] LILIANA DIS 01/30/2017 Ot 572.8 OTH SEQUELA, [facility] DIS 01/30/2017 Ot 572.8 OTH SEQUELA, [facility] DIS 01/30/2017 Ot 070.54 CHRONIC HEPATITIS C W/O HEPATIC COMA 01/30/2017 Ot 572.8 OTH SEQUELA, [facility] LILIANA DIS 01/30/2017 Ot 585.3 CHRONIC KIDNEY DISEASE, STAGE III (MODER 01/30/2017 Ot 572.8 OTH SEQUELA, CHR LILIANA DIS 01/30/2017 Ot 572.8 OTH SEQUELA, CHR LILIANA DIS 01/30/2017 Ot 572.8 OTH SEQUELA, [facility] LILIANA DIS 01/30/2017 Ot 572.8 OTH SEQUELA, [facility] LILIANA DIS 01/30/2017 Ot 572.8 OTH SEQUELA, [facility] LILIANA DIS 01/30/2017 Ot 572.8 OTH SEQUELA, [facility] DIS 01/30/2017 Ot V42.7 LIVER TRANSPLANT STATUS 01/30/2017 Ot 268.9 VITAMIN D DEFICIENCY NOS 01/30/2017 Ot 281.1 B12 DEFIC ANEMIA NEC 01/30/2017 Ot 285.9 ANEMIA NOS 01/30/2017 Ot 491.21 OBSTR CHRONIC BRONCHITIS, W (ACUTE) EXAC 01/30/2017 Ot 572.8 OTH SEQUELA, CHR LILIANA DIS 01/30/2017 Ot 585.3 CHRONIC KIDNEY DISEASE, STAGE III (MODER 01/30/2017 Ot V42.7 LIVER TRANSPLANT STATUS 01/30/2017 Ot V58.69 OTH MED,LT, CURRENT USE 01/30/2017 Ot 573.8 LIVER DISORDERS NEC 01/30/2017 Ot 593.9 RENAL URETERAL DIS NOS 01/30/2017 Ot 721.3 LUMBOSACRAL SPONDYLOSIS 01/30/2017 Ot V58.69 OTH MED,LT, CURRENT USE 01/30/2017 Ot 572.8 OTH SEQUELA, CHR LILIANA DIS 01/30/2017 Ot V42.7 LIVER TRANSPLANT STATUS 01/30/2017 Ot 572.8 OTH SEQUELA, CHR LILIANA DIS 01/30/2017 Ot 585.3 CHRONIC KIDNEY DISEASE, STAGE III (MODER 01/30/2017 Ot 572.8 OTH SEQUELA, CHR LILIANA DIS 01/30/2017 Ot 572.8 OTH SEQUELA, CHR LILIANA DIS 01/30/2017 Ot 585.3 CHRONIC KIDNEY DISEASE, STAGE III (MODER 01/30/2017 Ot 572.8 OTH SEQUELA, CHR LILIANA DIS 01/30/2017 Ot 268.9 VITAMIN D DEFICIENCY NOS 01/30/2017 Ot 275.2 DIS MAGNESIUM METABOLISM 01/30/2017 Ot 572.8 OTH SEQUELA, CHR LILIANA DIS 01/30/2017 Ot 585.3 CHRONIC KIDNEY DISEASE, STAGE III (MODER 01/30/2017 Ot V42.7 LIVER TRANSPLANT STATUS 01/30/2017 Ot V58.69 OTH MED,LT, CURRENT USE 01/30/2017 Ot 573.8 LIVER DISORDERS NEC 01/30/2017 Ot 593.9 RENAL URETERAL DIS NOS 01/30/2017 Ot 789.09 ABDOMINAL PAIN, OTHER SPECIFIED SITE 01/30/2017 PRISCILA CHANDLER MD Ot 285.9 ANEMIA NOS 01/30/2017 PRISCILA CHANDLER MD Ot 572.8 OTH SEQUELA, CHR LILIANA DIS 01/30/2017 PRISCILA CHANDLER MD Ot 585.9 CHRONIC KIDNEY DISEASE, UNSPECIFIED 01/30/2017 EDUARDO PALACIO Ot 572.8 OTH SEQUELA, CHR LILIANA DIS 01/30/2017 EDUARDO PALACIOBS Ot 585.9 CHRONIC KIDNEY DISEASE, UNSPECIFIED 01/30/2017 RAMESH STARR, PRISCILA Vieira Ot 285.9 ANEMIA NOS 01/30/2017 RAMESH STARR, PRISCILA Vieira Ot 572.8 OTH SEQUELA, CHR LILIANA DIS 01/30/2017 PRISCILA CHANDLER MD Ot 585.9 CHRONIC KIDNEY DISEASE, UNSPECIFIED 01/30/2017 EDUARDO PALACIOBS Ot 572.8 OTH SEQUELA, CHR LILIANA DIS 01/30/2017 TEREZA BRADEN MD Ot 572.8 OTH SEQUELA, CHR LILIANA DIS 01/30/2017 TEREZA BRADEN MD Ot 585.3 CHRONIC KIDNEY DISEASE, STAGE III (MODER 01/30/2017 PRISCILA CHANDLER MD Ot 268.9 VITAMIN D DEFICIENCY NOS 01/30/2017 RAMESH STARR, PRISCILA Vieira Ot V42.7 LIVER TRANSPLANT STATUS 01/30/2017 MARIA LUISA STARR, MICHAEL Joel Ot 780.79 OTH MALAISE FATIGUE 01/30/2017 PRISCILA CHANDLER MD Ot 585.3 CHRONIC KIDNEY DISEASE, STAGE III (MODER 01/30/2017 MARIA LUISA STARR, MICHAEL Joel Ot 719.06 JOINT EFFUSION-L/LEG 01/30/2017 MARIA LUISA STARR, MICHAEL Joel Ot 719.47 JOINT PAIN-ANKLE 01/30/2017 TEREZA BRADEN MD Ot V42.7 LIVER TRANSPLANT STATUS 01/30/2017 TEREZA BRADEN MD Ot V58.44 AFTERCARE FOLLOWING ORGAN TRANSPLANT 01/30/2017 RAMESH STARR, PRISCILA Vieira Ot 268.9 VITAMIN D DEFICIENCY NOS 01/30/2017 RAMESH STARR, PRISCILA B Ot 276.8 HYPOPOTASSEMIA 01/30/2017 PRISCILA CHANDLER MD Ot 585.3 CHRONIC KIDNEY DISEASE, STAGE III (MODER 01/30/2017 RAMESH STARR, PRISCILA Vieira Ot 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 01/30/2017 MARIA LUISA STARR, MICHAEL Joel Ot 275.41 HYPOCALCEMIA 01/30/2017 MARIA LUISA STARR, MICHAEL Joel Ot 276.9 ELECTROLYT/FLUID DIS NEC 01/30/2017 MARIA LUISA STARR, MICHAEL Joel Ot 427.89 CARDIAC DYSRHYTHMIAS NEC 01/30/2017 TEREZA BRADEN MD Ot 572.8 OTH SEQUELA, CHR LILIANA DIS 01/30/2017 TEREZA BRADEN MD Ot 585.3 CHRONIC KIDNEY DISEASE, STAGE III (MODER 01/30/2017 TEREZA BRADEN MD Ot 790.6 ABN BLOOD CHEMISTRY NEC 01/30/2017 LOYDA DOMINGUEZ MD Ot 427.9 CARDIAC DYSRHYTHMIA NOS 01/30/2017 LOYDA DOMINGUEZ MD Ot 585.9 CHRONIC KIDNEY DISEASE, UNSPECIFIED 01/30/2017 LOYDA DOMINGUEZ MD Ot V15.81 HX OF PAST NONCOMPLIANCE 01/30/2017 MARIA LUISA STARR, MICHAEL Joel Ot 721.3 LUMBOSACRAL SPONDYLOSIS 01/30/2017 MARIA LUISA STARR, MICHAEL Joel Ot 722.10 LUMBAR DISC DISPLACEMENT 01/30/2017 MICHAEL GLASS MD Ot V15.88 HISTORY OF FALL 01/30/2017 MARIA LUISA STARR, MICHAEL Joel Ot 722.52 LUMB/LUMBOSAC DISC DEGEN 01/30/2017 MARIA LUISA STARR, MICHAEL Joel Ot 737.30 IDIOPATHIC SCOLIOSIS 01/30/2017 Ot 305.1 TOBACCO USE DISORDER 01/30/2017 Ot 427.9 CARDIAC DYSRHYTHMIA NOS 01/30/2017 Ot 585.9 CHRONIC KIDNEY DISEASE, UNSPECIFIED 01/30/2017 Ot 790.29 OTHER ABNORMAL GLUCOSE 01/30/2017 Ot V15.81 HX OF PAST NONCOMPLIANCE 01/30/2017 PRISCILA CHANDLER MD Ot 268.9 VITAMIN D DEFICIENCY NOS 01/30/2017 PRISCILA CHANDLER MD Ot 275.2 DIS MAGNESIUM METABOLISM 01/30/2017 PRISCILA CHANDLER MD Ot 585.3 CHRONIC KIDNEY DISEASE, STAGE III (MODER 01/30/2017 PRISCILA CHANDLER MD Ot 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 01/30/2017 PRISCILA CHANDLER MD Ot 268.9 VITAMIN D DEFICIENCY NOS 01/30/2017 PRISCILA CHANDLER MD Ot 275.2 DIS MAGNESIUM METABOLISM 01/30/2017 PRISCILA CHANDLER MD Ot 585.3 CHRONIC KIDNEY DISEASE, STAGE III (MODER 01/30/2017 Ot 338.29 OTHER CHRONIC PAIN 01/30/2017 Ot 573.9 LIVER DISORDER NOS 01/30/2017 Ot 729.82 CRAMP IN LIMB 01/30/2017 Ot V58.69 OTH MED,LT, CURRENT USE 01/30/2017 Ot 268.9 VITAMIN D DEFICIENCY NOS 01/30/2017 Ot 275.2 DIS MAGNESIUM METABOLISM 01/30/2017 Ot 403.90 HYPTNSV CHR 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, UNSPEC, W CHR KD ST 01/30/2017 Ot 585.3 CHRONIC KIDNEY DISEASE, STAGE III (MODER 01/30/2017 MICHAEL GLASS MD Ot 729.82 CRAMP IN LIMB 01/30/2017 MICHAEL GLASS MD Ot 780.60 FEVER, UNSPECIFIED 01/30/2017 MICHAEL GLASS MD Ot V58.69 OTH MED,LT,CURRENT USE 01/30/2017 TEREZA BRADEN MD Ot 571.5 CIRRHOSIS OF LIVER NOS 01/30/2017 TEREZA BRADEN MD Ot V42.7 LIVER TRANSPLANT STATUS 01/30/2017 MICHAEL GLASS MD Ot 573.9 LIVER DISORDER NOS 01/30/2017 MICHAEL GLASS MD Ot 780.60 FEVER, UNSPECIFIED 01/30/2017 MICHAEL GLASS MD Ot V42.7 LIVER TRANSPLANT STATUS 01/30/2017 EDUARDO PALACIO Ot 268.9 VITAMIN D DEFICIENCY NOS 01/30/2017 EDUARDO PALACIO Ot 272.4 HYPERLIPIDEMIA NEC/NOS 01/30/2017 EDUARDO PALACIO Ot V42.7 LIVER TRANSPLANT STATUS 01/30/2017 EDUARDO PALACIO Ot V58.69 OTH MED,LT,CURRENT USE 01/30/2017 MICHAEL GLASS MD Ot F17.210 NICOTINE DEPENDENCE, CIGARETTES, UNCOMPL 01/30/2017 MICHAEL GLASS MD Ot R05 COUGH 01/30/2017 MICHAEL GLASS MD Ot R10.9 UNSPECIFIED ABDOMINAL PAIN 01/30/2017 MICHAEL GLASS MD Ot R91.1 SOLITARY PULMONARY NODULE 01/30/2017 MARJAN STANLEY DO Ot B49 UNSPECIFIED MYCOSIS 01/30/2017 MARJAN STANLEY DO Ot R91.8 OTHER NONSPECIFIC ABNORMAL FINDING OF BRENT 01/30/2017 MARJAN STANLEY DO Ot Z94.4 LIVER TRANSPLANT STATUS 01/30/2017 KIMBERLEY HILL DO Ot J44.9 CHRONIC OBSTRUCTIVE PULMONARY DISEASE, U 01/30/2017 KIMBERLEY HILL DO Ot R91.8 OTHER NONSPECIFIC ABNORMAL FINDING OF BRENT 01/30/2017 RAMESH STARR, PRISCILA Vieira Ot E55.9 VITAMIN D DEFICIENCY, UNSPECIFIED 01/30/2017 RAMESH STARR, PRISCILA Vieira Ot E83.42 HYPOMAGNESEMIA 01/30/2017 RAMESH STARR, PRISCILA Vieira Ot K72.90 HEPATIC FAILURE, UNSPECIFIED WITHOUT COM 01/30/2017 RAMESH STARR, PRISCILA Vieira Ot N18.3 CHRONIC KIDNEY DISEASE, STAGE 3 (MODERAT 01/30/2017 TEREZA BRADEN MD Ot K74.60 UNSPECIFIED CIRRHOSIS OF LIVER 01/30/2017 Ot Z51.81 ENCOUNTER FOR THERAPEUTIC DRUG LEVEL MON 01/30/2017 Ot Z79.899 OTHER RENTAL MANAGEMENT TRAINEE (CURRENT) DRUG THERAPY 01/30/2017 Ot Z94.4 LIVER TRANSPLANT STATUS 01/30/2017 MARIA LUISA STARR, MICHAEL Joel Ot K72.90 HEPATIC FAILURE, UNSPECIFIED WITHOUT COM 01/30/2017 TEREZA BRADEN MD Ot K74.60 UNSPECIFIED CIRRHOSIS OF LIVER 01/30/2017 DEVORAEMELIA ONEAL PROFESSIONAL DRIVER Ot F17.200 NICOTINE DEPENDENCE, UNSPECIFIED, UNCOMP 01/30/2017 PHYLLIS LOZOYAINE E PROFESSIONAL DRIVER Ot J44.9 CHRONIC OBSTRUCTIVE PULMONARY DISEASE, U 01/30/2017 DEVORAEMELIA ONEAL E PROFESSIONAL DRIVER Ot F17.200 NICOTINE DEPENDENCE, UNSPECIFIED, UNCOMP 01/30/2017 EMELIA LOZOYA PROFESSIONAL DRIVER Ot J44.9 CHRONIC OBSTRUCTIVE PULMONARY DISEASE, U 01/30/2017 EMELIA LOZOYA PROFESSIONAL DRIVER Ot R91.8 OTHER NONSPECIFIC ABNORMAL FINDING OF BRENT 01/30/2017 TEREZA BRADEN MD Ot K74.60 UNSPECIFIED CIRRHOSIS OF LIVER 01/30/2017 TEREZA BRADEN MD Ot E83.42 HYPOMAGNESEMIA 01/30/2017 TEREZA BRADEN MD Ot Z94.4 LIVER TRANSPLANT STATUS 01/30/2017 PRISCILA CHANDLER MD Ot E55.9 VITAMIN D DEFICIENCY, UNSPECIFIED 01/30/2017 PRISCILA CHANDLER MD Ot E83.42 HYPOMAGNESEMIA 01/30/2017 PRISCILA CHANDLER MD Ot J20.9 ACUTE BRONCHITIS, UNSPECIFIED 01/30/2017 PRISCILA CHANDLER MD Ot N18.3 CHRONIC KIDNEY DISEASE, STAGE 3 (MODERAT 01/30/2017 TEREZA BRADEN MD Ot K74.60 UNSPECIFIED CIRRHOSIS OF LIVER 01/30/2017 RAMESH STARR, PRISCILA B Ot N18.3 CHRONIC KIDNEY DISEASE, STAGE 3 (MODERAT 01/31/2017 RAMESH STARR, PRISCILA B Ot N18.3 CHRONIC KIDNEY DISEASE, STAGE 3 (MODERAT 02/06/2017 RAMESH STARR, PRISCILA B Ot N18.3 CHRONIC KIDNEY DISEASE, STAGE 3 (MODERAT 02/09/2017 RAMESH STARR, PRISCILA B Ot N18.3 CHRONIC KIDNEY DISEASE, STAGE 3 (MODERAT 03/06/2017 RAMESH STARR, PRISCILA B Ot N18.3 CHRONIC KIDNEY DISEASE, STAGE 3 (MODERAT 03/06/2017 TEREZA BRADEN MD Ot K74.60 UNSPECIFIED CIRRHOSIS OF LIVER 03/06/2017 TEREZA BRADEN MD Ot K74.60 UNSPECIFIED CIRRHOSIS OF LIVER 03/06/2017 TEREZA BRADEN MD Ot K74.60 UNSPECIFIED CIRRHOSIS OF LIVER 03/06/2017 PRISCILA CHANDLER MD B Ot N18.3 CHRONIC KIDNEY DISEASE, STAGE 3 (MODERAT 03/20/2017 PRISCILA CHANDLER MD B Ot N18.3 CHRONIC KIDNEY DISEASE, STAGE 3 (MODERAT 03/27/2017 PRISCILA CHANDLER MD Ot I12.9 HYPERTENSIVE CHRONIC KIDNEY DISEASE W ST 03/27/2017 PRISCILA CHANDLER MD Ot N18.3 CHRONIC KIDNEY DISEASE, STAGE 3 (MODERAT 03/27/2017 PRISCILA CHANDLER MD Ot R80.8 OTHER PROTEINURIA 03/27/2017 RAMESH STARR, PRISCILA Vieira Ot Z94.4 LIVER TRANSPLANT STATUS 03/29/2017 PRISCILA CHANDLER MD Ot E55.9 VITAMIN D DEFICIENCY, UNSPECIFIED 03/29/2017 PRISCILA CHANDLER MD Ot I12.9 HYPERTENSIVE CHRONIC KIDNEY DISEASE W ST 03/29/2017 PRISCILA CHANDLER MD Ot N18.3 CHRONIC KIDNEY DISEASE, STAGE 3 (MODERAT 03/29/2017 PRISCILA CHANDLER MD Ot R80.8 OTHER PROTEINURIA 03/29/2017 FREDIS STARR, RAMÍREZ Fulton Ot A41.9 SEPSIS, UNSPECIFIED ORGANISM 03/29/2017 RAMÍREZ MCNEAL MD Ot F17.210 NICOTINE DEPENDENCE, CIGARETTES, UNCOMPL 03/29/2017 RAMÍREZ MCNEAL MD, Ot F32.9 MAJOR DEPRESSIVE DISORDER, SINGLE EPISOD 03/29/2017 RAMÍREZ MCNEAL MD, Ot F41.9 ANXIETY DISORDER, UNSPECIFIED 03/29/2017 RAMÍREZ MCNEAL MD Ot G89.29 OTHER CHRONIC PAIN 03/29/2017 RAMÍREZ MCNEAL MD, Ot I12.9 HYPERTENSIVE CHRONIC KIDNEY DISEASE W ST 03/29/2017 RAMÍREZ MCNEAL MD, Ot J43.2 CENTRILOBULAR EMPHYSEMA 03/29/2017 RAMÍREZ MCNEAL MD, Ot J69.0 PNEUMONITIS DUE TO INHALATION OF FOOD AN 03/29/2017 RAMÍREZ MCNEAL MD Ot K72.90 HEPATIC FAILURE, UNSPECIFIED WITHOUT COM 03/29/2017 RAMÍREZ MCNEAL MD, Ot N18.9 CHRONIC KIDNEY DISEASE, UNSPECIFIED 03/29/2017 RAMÍREZ MCNEAL MD Ot R00.1 BRADYCARDIA, UNSPECIFIED 03/29/2017 RAMÍREZ MCNEAL MD Ot Z94.4 LIVER TRANSPLANT STATUS 03/31/2017 TEREZA BRADEN MD, Ot K74.60 UNSPECIFIED CIRRHOSIS OF LIVER 04/04/2017 PRISCILA CHANDLER MD Ot E55.9 VITAMIN D DEFICIENCY, UNSPECIFIED 04/04/2017 PRISCILA CHANDLER MD, Ot I12.9 HYPERTENSIVE CHRONIC KIDNEY DISEASE W ST 04/04/2017 PRISCILA CHANDLER MD, Ot N18.3 CHRONIC KIDNEY DISEASE, STAGE 3 (MODERAT 04/04/2017 PRISCILA CHANDLER MD Ot R80.8 OTHER PROTEINURIA 04/04/2017 TEREZA BRADEN MD, Ot K74.60 UNSPECIFIED CIRRHOSIS OF LIVER 04/08/2017 Ot 572.8 OTH SEQUELA, CHR LILIANA DIS 04/08/2017 Ot 585.3 CHRONIC KIDNEY DISEASE, STAGE III (MODER 04/10/2017 TEREZA BRADEN MD, Ot K74.60 UNSPECIFIED CIRRHOSIS OF LIVER Procedures Code Description Performed By Performed On 86.07 INSERTION OF TOTALLY IMPLANTABLE VASC AC 10/15/2009 Results Test Result Range Complete blood count (CBC) with automated white blood cell (WBC) differential - 04/06/16 10:33 Blood leukocytes automated count (number/volume) 8.3 10*3/uL 4.3-11.0 Blood erythrocytes automated count (number/volume) 4.19 10*6/uL 4.35-5.85 Venous blood hemoglobin measurement (mass/volume) 13.3 g/dL 13.3-17.7 Blood hematocrit (volume fraction) 38 % 40-54 Automated erythrocyte mean corpuscular volume 91 [foz_us] 80-99 Automated erythrocyte mean corpuscular hemoglobin (mass per erythrocyte) 32 pg 25-34 Automated erythrocyte mean corpuscular hemoglobin concentration measurement ( mass/volume) 35 g/dL 32-36 Automated erythrocyte distribution width ratio 13.6 % 10.0-14.5 Automated blood platelet count (count/volume) 134 10*3/uL 130-400 Automated blood platelet mean volume measurement 10.5 [foz_us] 7.4-10.4 Automated blood neutrophils/100 leukocytes 48 % 42-75 Automated blood lymphocytes/100 leukocytes 23 % 12-44 Blood monocytes/100 leukocytes 13 % 0-12 Automated blood eosinophils/100 leukocytes 15 % 0-10 Automated blood basophils/100 leukocytes 1 % 0-10 Blood neutrophils automated count (number/volume) 4.0 10*3 1.8-7.8 Blood lymphocytes automated count (number/volume) 1.9 10*3 1.0-4.0 Blood monocytes automated count (number/volume) 1.1 10*3 0.0-1.0 Automated eosinophil count 1.2 10*3/uL 0.0-0.3 Automated blood basophil count (count/volume) 0.1 10*3/uL 0.0-0.1 Comprehensive metabolic panel - 04/06/16 10:33 Serum or plasma sodium measurement (moles/volume) 138 mmol/L 135-145 Serum or plasma potassium measurement (moles/volume) 3.5 mmol/L 3.6-5.0 Serum or plasma chloride measurement (moles/volume) 105 mmol/L 98-107 Carbon dioxide 23 mmol/L 21-32 Serum or plasma anion gap determination (moles/volume) 10 mmol/L 5-14 Serum or plasma urea nitrogen measurement (mass/volume) 11 mg/dL 7-18 Serum or plasma creatinine measurement (mass/volume) 1.21 mg/dL 0.60-1.30 Serum or plasma urea nitrogen/creatinine mass ratio 9 NRG Serum or plasma creatinine measurement with calculation of estimated glomerular filtration rate > NRG Serum or plasma glucose measurement (mass/volume) 112 mg/dL 70-105 Serum or plasma calcium measurement (mass/volume) 8.7 mg/dL 8.5-10.1 Serum or plasma total bilirubin measurement (mass/volume) 1.6 mg/dL 0.1-1.0 Serum or plasma alkaline phosphatase measurement (enzymatic activity/volume) 137 U/L 40-136 Serum or plasma aspartate aminotransferase measurement (enzymatic activity/ volume) 30 U/L 5-34 Serum or plasma alanine aminotransferase measurement (enzymatic activity/volume ) 20 U/L 0-55 Serum or plasma protein measurement (mass/volume) 6.7 g/dL 6.4-8.2 Serum or plasma albumin measurement (mass/volume) 3.2 g/dL 3.2-4.5 Ammonia - 04/06/16 10:33 Ammonia 47 umol/L 11-32 Blood manual differential performed detection - 04/06/16 10:33 Blood monocytes/100 leukocytes 9 % NRG Manual blood segmented neutrophils/100 leukocytes 46 % NRG Blood band neutrophils/100 leukocytes 0 % NRG Manual blood lymphocytes/100 leukocytes 26 % NRG Manual eosinophils/100 leukocytes in nose 19 % NRG Manual blood basophils/100 leukocytes 0 % NRG Blood erythrocyte morphology finding identification NORMAL NRG Serum or plasma renal function panel (Na, K, Cl, CO2, BUN, Cr, glucose,Ca, phos , alb) - 05/24/16 13:23 Serum or plasma sodium measurement (moles/volume) 135 mmol/L 135-145 Serum or plasma potassium measurement (moles/volume) 4.0 mmol/L 3.6-5.0 Serum or plasma chloride measurement (moles/volume) 104 mmol/L 98-107 Carbon dioxide 25 mmol/L 21-32 Serum or plasma anion gap determination (moles/volume) 6 mmol/L 5-14 Serum or plasma urea nitrogen measurement (mass/volume) 17 mg/dL 7-18 Serum or plasma creatinine measurement (mass/volume) 1.15 mg/dL 0.60-1.30 Serum or plasma urea nitrogen/creatinine mass ratio 15 NRG Serum or plasma creatinine measurement with calculation of estimated glomerular filtration rate > NRG Serum or plasma glucose measurement (mass/volume) 88 mg/dL 70-105 Serum or plasma calcium measurement (mass/volume) 8.2 mg/dL 8.5-10.1 Serum or plasma albumin measurement (mass/volume) 2.9 g/dL 3.2-4.5 Serum or plasma phosphate measurement (mass/volume) 2.7 mg/dL 2.3-4.7 Serum or plasma uric acid measurement (mass/volume) - 05/24/16 13:23 Serum or plasma uric acid measurement (mass/volume) 5.4 mg/dL 2.6-7.2 Magnesium - 05/24/16 13:23 Magnesium 1.4 mg/dL 1.8-2.4 Serum or plasma creatine kinase measurement (enzymatic activity/volume) - 05/24 13:23 Serum or plasma creatine kinase measurement (enzymatic activity/volume) 152 U/L 30-200 Serum or plasma intact pararthyroid hormone measurement (mass/volume) - 13:23 Serum or plasma intact parathyroid hormone measurement (mass/volume) 99 pg/mL 10-65 Bio-intact parathyroid hormone (PTH) measurement with calcium 8.0 % 8.5-10.5 25-hydroxyvitamin D measurement - 05/24/16 13:23 25-hydroxy vitamin D measurement 26 % 30-100 Complete urinalysis with reflex to culture - 05/24/16 14:10 Urine color determination CHRISTIN NRG Urine clarity determination CLEAR NRG Urine pH measurement by test strip 6 5-9 Specific gravity of urine by test strip 1.020 1.016- 1.022 Urine protein assay by test strip, semi-quantitative 3+ NEGATIVE Urine glucose detection by automated test strip NEGATIVE NEGATIVE Erythrocytes detection in urine sediment by light microscopy 2+ NEGATIVE Urine ketones detection by automated test strip NEGATIVE NEGATIVE Urine nitrite detection by test strip NEGATIVE NEGATIVE Urine total bilirubin detection by test strip NEGATIVE NEGATIVE Urine urobilinogen measurement by automated test strip (mass/volume) 1 mg/dL NORMAL Urine leukocyte esterase detection by dipstick NEGATIVE NEGATIVE Automated urine sediment erythrocyte count by microscopy (number/high power field) NONE NRG Automated urine sediment leukocyte count by microscopy (number/high power field ) RARE NRG Bacteria detection in urine sediment by light microscopy NEGATIVE NRG Squamous epithelial cells detection in urine sediment by light microscopy 0-2 NRG Crystals detection in urine sediment by light microscopy NONE NRG Casts detection in urine sediment by light microscopy NONE NRG Mucus detection in urine sediment by light microscopy SMALL NRG Complete urinalysis with reflex to culture NO NRG Urine protein/creatinine mass ratio - 05/24/16 14:10 Urine protein measurement (mass/volume) 196 mg/dL 6-12 Urine creatinine measurement (mass/volume) 204 mg/dL 30- 125 Urine protein/creatinine mass ratio 0.96 NRG Urine drug screening test - 11/08/16 13:30 Urine phencyclidine detection by screening method NEGATIVE NEGATIVE Urine benzodiazepines detection by screening method NEGATIVE NEGATIVE Urine cocaine detection NEGATIVE NEGATIVE Urine amphetamines detection by screening method NEGATIVE NEGATIVE Urine methamphetamine detection by screening method NEGATIVE NEGATIVE Urine cannabinoids detection by screening method NEGATIVE NEGATIVE Urine opiates detection by screening method POSITIVE NEGATIVE Urine barbiturates detection NEGATIVE NEGATIVE Screening urine tricyclic antidepressants detection NEGATIVE NEGATIVE Urine methadone detection by screening method NEGATIVE NEGATIVE Urine oxycodone detection POSITIVE NEGATIVE Urine propoxyphene detection NEGATIVE NEGATIVE Complete blood count (CBC) with automated white blood cell (WBC) differential - 11/08/16 13:49 Blood leukocytes automated count (number/volume) 12.9 10*3/uL 4.3-11.0 Blood erythrocytes automated count (number/volume) 3.84 10*6/uL 4.35-5.85 Venous blood hemoglobin measurement (mass/volume) 12.0 g/dL 13.3-17.7 Blood hematocrit (volume fraction) 35 % 40-54 Automated erythrocyte mean corpuscular volume 91 [foz_us] 80-99 Automated erythrocyte mean corpuscular hemoglobin (mass per erythrocyte) 31 pg 25-34 Automated erythrocyte mean corpuscular hemoglobin concentration measurement ( mass/volume) 35 g/dL 32-36 Automated erythrocyte distribution width ratio 14.5 % 10.0-14.5 Automated blood platelet count (count/volume) 110 10*3/uL 130-400 Automated blood platelet mean volume measurement 10.8 [foz_us] 7.4-10.4 Automated blood neutrophils/100 leukocytes 59 % 42-75 Automated blood lymphocytes/100 leukocytes 25 % 12-44 Blood monocytes/100 leukocytes 10 % 0-12 Automated blood eosinophils/100 leukocytes 6 % 0-10 Automated blood basophils/100 leukocytes 1 % 0-10 Blood neutrophils automated count (number/volume) 7.6 10*3 1.8-7.8 Blood lymphocytes automated count (number/volume) 3.2 10*3 1.0-4.0 Blood monocytes automated count (number/volume) 1.3 10*3 0.0-1.0 Automated eosinophil count 0.8 10*3/uL 0.0-0.3 Automated blood basophil count (count/volume) 0.1 10*3/uL 0.0-0.1 Comprehensive metabolic panel - 11/08/16 13:49 Serum or plasma sodium measurement (moles/volume) 138 mmol/L 135-145 Serum or plasma potassium measurement (moles/volume) 4.1 mmol/L 3.6-5.0 Serum or plasma chloride measurement (moles/volume) 107 mmol/L 98-107 Carbon dioxide 22 mmol/L 21-32 Serum or plasma anion gap determination (moles/volume) 9 mmol/L 5-14 Serum or plasma urea nitrogen measurement (mass/volume) 23 mg/dL 7-18 Serum or plasma creatinine measurement (mass/volume) 1.68 mg/dL 0.60-1.30 Serum or plasma urea nitrogen/creatinine mass ratio 14 NRG Serum or plasma creatinine measurement with calculation of estimated glomerular filtration rate 42 NRG Serum or plasma glucose measurement (mass/volume) 104 mg/dL 70-105 Serum or plasma calcium measurement (mass/volume) 8.9 mg/dL 8.5-10.1 Serum or plasma total bilirubin measurement (mass/volume) 1.3 mg/dL 0.1-1.0 Serum or plasma alkaline phosphatase measurement (enzymatic activity/volume) 119 U/L 40-136 Serum or plasma aspartate aminotransferase measurement (enzymatic activity/ volume) 32 U/L 5-34 Serum or plasma alanine aminotransferase measurement (enzymatic activity/volume ) 24 U/L 0-55 Serum or plasma protein measurement (mass/volume) 7.1 g/dL 6.4-8.2 Serum or plasma albumin measurement (mass/volume) 3.3 g/dL 3.2-4.5 Magnesium - 11/08/16 13:49 Magnesium 1.5 mg/dL 1.8-2.4 Ammonia - 11/08/16 13:49 Ammonia 45 umol/L 11-32 FK 506 - 11/08/16 13:49 Tacrolimus blood 12.2 % NRG Complete blood count (CBC) with automated white blood cell (WBC) differential - 12/21/16 14:40 Blood leukocytes automated count (number/volume) 7.8 10*3/uL 4.3-11.0 Blood erythrocytes automated count (number/volume) 3.73 10*6/uL 4.35-5.85 Venous blood hemoglobin measurement (mass/volume) 11.9 g/dL 13.3-17.7 Blood hematocrit (volume fraction) 35 % 40-54 Automated erythrocyte mean corpuscular volume 93 [foz_us] 80-99 Automated erythrocyte mean corpuscular hemoglobin (mass per erythrocyte) 32 pg 25-34 Automated erythrocyte mean corpuscular hemoglobin concentration measurement ( mass/volume) 35 g/dL 32-36 Automated erythrocyte distribution width ratio 14.6 % 10.0-14.5 Automated blood platelet count (count/volume) 104 10*3/uL 130-400 Automated blood platelet mean volume measurement 10.7 [foz_us] 7.4-10.4 Automated blood neutrophils/100 leukocytes 46 % 42-75 Automated blood lymphocytes/100 leukocytes 27 % 12-44 Blood monocytes/100 leukocytes 14 % 0-12 Automated blood eosinophils/100 leukocytes 12 % 0-10 Automated blood basophils/100 leukocytes 1 % 0-10 Blood neutrophils automated count (number/volume) 3.6 10*3 1.8-7.8 Blood lymphocytes automated count (number/volume) 2.1 10*3 1.0-4.0 Blood monocytes automated count (number/volume) 1.1 10*3 0.0-1.0 Automated eosinophil count 1.0 10*3/uL 0.0-0.3 Automated blood basophil count (count/volume) 0.1 10*3/uL 0.0-0.1 Complete urinalysis with reflex to culture - 12/21/16 14:40 Urine color determination YELLOW NRG Urine clarity determination CLEAR NRG Urine pH measurement by test strip 5 5-9 Specific gravity of urine by test strip 1.020 1.016- 1.022 Urine protein assay by test strip, semi-quantitative 3+ NEGATIVE Urine glucose detection by automated test strip NEGATIVE NEGATIVE Erythrocytes detection in urine sediment by light microscopy 1+ NEGATIVE Urine ketones detection by automated test strip NEGATIVE NEGATIVE Urine nitrite detection by test strip NEGATIVE NEGATIVE Urine total bilirubin detection by test strip NEGATIVE NEGATIVE Urine urobilinogen measurement by automated test strip (mass/volume) NORMAL NORMAL Urine leukocyte esterase detection by dipstick NEGATIVE NEGATIVE Automated urine sediment erythrocyte count by microscopy (number/high power field) [HPF] NRG Automated urine sediment leukocyte count by microscopy (number/high power field ) NONE NRG Bacteria detection in urine sediment by light microscopy NEGATIVE NRG Squamous epithelial cells detection in urine sediment by light microscopy 0-2 NRG Crystals detection in urine sediment by light microscopy NONE NRG Casts detection in urine sediment by light microscopy NONE NRG Mucus detection in urine sediment by light microscopy NEGATIVE NRG Complete urinalysis with reflex to culture NO NRG Liver function panel (serum or plasma alk phos, alb, total and direct bili, total protein, ALT, AST) - 12/21/16 14:40 Serum or plasma total bilirubin measurement (mass/volume) 1.3 mg/dL 0.1-1.0 Serum or plasma alkaline phosphatase measurement (enzymatic activity/volume) 116 U/L 40-136 Serum or plasma aspartate aminotransferase measurement (enzymatic activity/ volume) 36 U/L 5-34 Serum or plasma alanine aminotransferase measurement (enzymatic activity/volume ) 22 U/L 0-55 Serum or plasma protein measurement (mass/volume) 5.9 g/dL 6.4-8.2 Serum or plasma albumin measurement (mass/volume) 3.0 g/dL 3.2-4.5 Bilirubin direct 0.5 mg/dL 0.0-0.3 Serum or plasma indirect bilirubin measurement (mass/volume) 0.8 mg/ dL NRG Serum or plasma renal function panel (Na, K, Cl, CO2, BUN, Cr, glucose,Ca, phos , alb) - 12/21/16 14:40 Serum or plasma sodium measurement (moles/volume) 138 mmol/L 135-145 Serum or plasma potassium measurement (moles/volume) 4.1 mmol/L 3.6-5.0 Serum or plasma chloride measurement (moles/volume) 111 mmol/L 98-107 Carbon dioxide 19 mmol/L 21-32 Serum or plasma anion gap determination (moles/volume) 8 mmol/L 5-14 Serum or plasma urea nitrogen measurement (mass/volume) 23 mg/dL 7-18 Serum or plasma creatinine measurement (mass/volume) 1.68 mg/dL 0.60-1.30 Serum or plasma urea nitrogen/creatinine mass ratio 14 0 -20 Serum or plasma creatinine measurement with calculation of estimated glomerular filtration rate 42 NRG Serum or plasma glucose measurement (mass/volume) 104 mg/dL 70-105 Serum or plasma calcium measurement (mass/volume) 8.5 mg/dL 8.5-10.1 Serum or plasma phosphate measurement (mass/volume) 3.2 mg/dL 2.3-4.7 Serum or plasma uric acid measurement (mass/volume) - 12/21/16 14:40 Serum or plasma uric acid measurement (mass/volume) 6.5 mg/dL 2.6-7.2 Magnesium - 12/21/16 14:40 Magnesium 1.8 mg/dL 1.8-2.4 Serum or plasma creatine kinase measurement (enzymatic activity/volume) - 12/21 14:40 Serum or plasma creatine kinase measurement (enzymatic activity/volume) 153 U/L 30-200 Blood manual differential performed detection - 12/21/16 14:40 Blood monocytes/100 leukocytes 15 % NRG Manual blood segmented neutrophils/100 leukocytes 41 % NRG Blood band neutrophils/100 leukocytes 1 % NRG Manual blood lymphocytes/100 leukocytes 37 % NRG Manual eosinophils/100 leukocytes in nose 6 % NRG Manual blood basophils/100 leukocytes 0 % NRG Blood erythrocyte morphology finding identification NORMAL NRG Urine protein/creatinine mass ratio - 12/21/16 14:40 Urine protein measurement (mass/volume) 173 mg/dL 6-12 Urine creatinine measurement (mass/volume) 122 mg/dL 30- 125 Urine protein/creatinine mass ratio 1.42 NRG Serum or plasma intact pararthyroid hormone measurement (mass/volume) - 14:40 Serum or plasma intact parathyroid hormone measurement (mass/volume) 64.0 pg/mL 10.0-65.0 Bio-intact parathyroid hormone (PTH) measurement with calcium 8.3 % 8.5-10.5 25-hydroxyvitamin D measurement - 12/21/16 14:40 25-hydroxy vitamin D measurement 23 % 30-100 Ammonia - 12/26/16 13:45 Ammonia 39 umol/L 11-32 Complete blood count (CBC) with automated white blood cell (WBC) differential - 01/25/17 13:20 Blood leukocytes automated count (number/volume) 9.8 10*3/uL 4.3-11.0 Blood erythrocytes automated count (number/volume) 4.01 10*6/uL 4.35-5.85 Venous blood hemoglobin measurement (mass/volume) 12.8 g/dL 13.3-17.7 Blood hematocrit (volume fraction) 38 % 40-54 Automated erythrocyte mean corpuscular volume 95 [foz_us] 80-99 Automated erythrocyte mean corpuscular hemoglobin (mass per erythrocyte) 32 pg 25-34 Automated erythrocyte mean corpuscular hemoglobin concentration measurement ( mass/volume) 34 g/dL 32-36 Automated erythrocyte distribution width ratio 14.4 % 10.0-14.5 Automated blood platelet count (count/volume) 127 10*3/uL 130-400 Automated blood platelet mean volume measurement 11.2 [foz_us] 7.4-10.4 Automated blood neutrophils/100 leukocytes 50 % 42-75 Automated blood lymphocytes/100 leukocytes 24 % 12-44 Blood monocytes/100 leukocytes 14 % 0-12 Automated blood eosinophils/100 leukocytes 11 % 0-10 Automated blood basophils/100 leukocytes 1 % 0-10 Blood neutrophils automated count (number/volume) 4.9 10*3 1.8-7.8 Blood lymphocytes automated count (number/volume) 2.4 10*3 1.0-4.0 Blood monocytes automated count (number/volume) 1.4 10*3 0.0-1.0 Automated eosinophil count 1.0 10*3/uL 0.0-0.3 Automated blood basophil count (count/volume) 0.1 10*3/uL 0.0-0.1 Complete urinalysis with reflex to culture - 01/25/17 13:20 Urine color determination YELLOW NRG Urine clarity determination CLEAR NRG Urine pH measurement by test strip 5 5-9 Specific gravity of urine by test strip 1.020 1.016- 1.022 Urine protein assay by test strip, semi-quantitative 3+ NEGATIVE Urine glucose detection by automated test strip NEGATIVE NEGATIVE Erythrocytes detection in urine sediment by light microscopy 2+ NEGATIVE Urine ketones detection by automated test strip NEGATIVE NEGATIVE Urine nitrite detection by test strip NEGATIVE NEGATIVE Urine total bilirubin detection by test strip NEGATIVE NEGATIVE Urine urobilinogen measurement by automated test strip (mass/volume) NORMAL NORMAL Urine leukocyte esterase detection by dipstick NEGATIVE NEGATIVE Automated urine sediment erythrocyte count by microscopy (number/high power field) [HPF] NRG Automated urine sediment leukocyte count by microscopy (number/high power field ) [HPF] NRG Bacteria detection in urine sediment by light microscopy NEGATIVE NRG Squamous epithelial cells detection in urine sediment by light microscopy 0-2 NRG Crystals detection in urine sediment by light microscopy NONE NRG Casts detection in urine sediment by light microscopy NONE NRG Mucus detection in urine sediment by light microscopy NEGATIVE NRG Complete urinalysis with reflex to culture NO NR Urine protein/creatinine mass ratio - 01/25/17 13:20 Urine protein measurement (mass/volume) 90 mg/dL 6-12 Urine creatinine measurement (mass/volume) 130 mg/dL 30- 125 Urine protein/creatinine mass ratio 0.69 NR Serum or plasma renal function panel (Na, K, Cl, CO2, BUN, Cr, glucose,Ca, phos , alb) - 01/25/17 13:20 Serum or plasma sodium measurement (moles/volume) 139 mmol/L 135-145 Serum or plasma potassium measurement (moles/volume) 4.2 mmol/L 3.6-5.0 Serum or plasma chloride measurement (moles/volume) 111 mmol/L 98-107 Carbon dioxide 22 mmol/L 21-32 Serum or plasma anion gap determination (moles/volume) 6 mmol/L 5-14 Serum or plasma urea nitrogen measurement (mass/volume) 33 mg/dL 7-18 Serum or plasma creatinine measurement (mass/volume) 2.17 mg/dL 0.60-1.30 Serum or plasma urea nitrogen/creatinine mass ratio 15 NR Serum or plasma creatinine measurement with calculation of estimated glomerular filtration rate 31 NR Serum or plasma glucose measurement (mass/volume) 133 mg/dL 70-105 Serum or plasma calcium measurement (mass/volume) 8.3 mg/dL 8.5-10.1 Serum or plasma albumin measurement (mass/volume) 2.9 g/dL 3.2-4.5 Serum or plasma phosphate measurement (mass/volume) 3.2 mg/dL 2.3-4.7 Serum or plasma renal function panel (Na, K, Cl, CO2, BUN, Cr, glucose,Ca, phos , alb) - 01/30/17 16:10 Serum or plasma sodium measurement (moles/volume) 142 mmol/L 135-145 Serum or plasma potassium measurement (moles/volume) 4.1 mmol/L 3.6-5.0 Serum or plasma chloride measurement (moles/volume) 112 mmol/L 98-107 Carbon dioxide 21 mmol/L 21-32 Serum or plasma anion gap determination (moles/volume) 9 mmol/L 5-14 Serum or plasma urea nitrogen measurement (mass/volume) 26 mg/dL 7-18 Serum or plasma creatinine measurement (mass/volume) 1.82 mg/dL 0.60-1.30 Serum or plasma urea nitrogen/creatinine mass ratio 14 NRG Serum or plasma creatinine measurement with calculation of estimated glomerular filtration rate 38 NRG Serum or plasma glucose measurement (mass/volume) 122 mg/dL 70-105 Serum or plasma calcium measurement (mass/volume) 8.2 mg/dL 8.5-10.1 Serum or plasma albumin measurement (mass/volume) 2.9 g/dL 3.2-4.5 Serum or plasma phosphate measurement (mass/volume) 2.4 mg/dL 2.3-4.7 Whole blood basic metabolic panel - 02/21/17 14:17 Serum or plasma sodium measurement (moles/volume) 141 mmol/L 135-145 Serum or plasma potassium measurement (moles/volume) 3.8 mmol/L 3.6-5.0 Serum or plasma chloride measurement (moles/volume) 108 mmol/L 98-107 Carbon dioxide 25 mmol/L 21-32 Serum or plasma anion gap determination (moles/volume) 8 mmol/L 5-14 Serum or plasma urea nitrogen measurement (mass/volume) 22 mg/dL 7-18 Serum or plasma creatinine measurement (mass/volume) 2.05 mg/dL 0.60-1.30 Serum or plasma urea nitrogen/creatinine mass ratio 11 NRG Serum or plasma creatinine measurement with calculation of estimated glomerular filtration rate 33 NRG Serum or plasma glucose measurement (mass/volume) 101 mg/dL 70-105 Serum or plasma calcium measurement (mass/volume) 8.6 mg/dL 8.5-10.1 Ammonia - 02/21/17 14:17 Ammonia 88 umol/L 11-32 Urine protein/creatinine mass ratio - 02/21/17 14:20 Urine protein measurement (mass/volume) 32 mg/dL 6-12 Urine creatinine measurement (mass/volume) 40 mg/dL 30- 125 Urine protein/creatinine mass ratio 0.80 NRG Complete urinalysis with reflex to culture - 02/21/17 14:20 Urine color determination YELLOW NRG Urine clarity determination CLEAR NRG Urine pH measurement by test strip 5 5-9 Specific gravity of urine by test strip 1.010 1.016- 1.022 Urine protein assay by test strip, semi-quantitative 2+ NEGATIVE Urine glucose detection by automated test strip NEGATIVE NEGATIVE Erythrocytes detection in urine sediment by light microscopy NEGATIVE NEGATIVE Urine ketones detection by automated test strip NEGATIVE NEGATIVE Urine nitrite detection by test strip NEGATIVE NEGATIVE Urine total bilirubin detection by test strip NEGATIVE NEGATIVE Urine urobilinogen measurement by automated test strip (mass/volume) NORMAL NORMAL Urine leukocyte esterase detection by dipstick NEGATIVE NEGATIVE Automated urine sediment erythrocyte count by microscopy (number/high power field) NONE NRG Automated urine sediment leukocyte count by microscopy (number/high power field ) NONE NRG Bacteria detection in urine sediment by light microscopy NEGATIVE NRG Squamous epithelial cells detection in urine sediment by light microscopy RARE NRG Crystals detection in urine sediment by light microscopy NONE NRG Casts detection in urine sediment by light microscopy NONE NRG Mucus detection in urine sediment by light microscopy NEGATIVE NRG Complete urinalysis with reflex to culture NO NRG Serum or plasma renal function panel (Na, K, Cl, CO2, BUN, Cr, glucose,Ca, phos , alb) - 02/21/17 14:31 Serum or plasma sodium measurement (moles/volume) 142 mmol/L 135-145 Serum or plasma potassium measurement (moles/volume) 3.8 mmol/L 3.6-5.0 Serum or plasma chloride measurement (moles/volume) 110 mmol/L 98-107 Carbon dioxide 24 mmol/L 21-32 Serum or plasma anion gap determination (moles/volume) 8 mmol/L 5-14 Serum or plasma urea nitrogen measurement (mass/volume) 23 mg/dL 7-18 Serum or plasma creatinine measurement (mass/volume) 2.04 mg/dL 0.60-1.30 Serum or plasma urea nitrogen/creatinine mass ratio 11 NRG Serum or plasma creatinine measurement with calculation of estimated glomerular filtration rate 33 NRG Serum or plasma glucose measurement (mass/volume) 97 mg/dL 70-105 Serum or plasma calcium measurement (mass/volume) 8.8 mg/dL 8.5-10.1 Serum or plasma albumin measurement (mass/volume) 3.4 g/dL 3.2-4.5 Serum or plasma phosphate measurement (mass/volume) 2.7 mg/dL 2.3-4.7 Complete blood count (CBC) with automated white blood cell (WBC) differential - 02/21/17 14:31 Blood leukocytes automated count (number/volume) 11.0 10*3/uL 4.3-11.0 Blood erythrocytes automated count (number/volume) 4.00 10*6/uL 4.35-5.85 Venous blood hemoglobin measurement (mass/volume) 12.7 g/dL 13.3-17.7 Blood hematocrit (volume fraction) 37 % 40-54 Automated erythrocyte mean corpuscular volume 93 [foz_us] 80-99 Automated erythrocyte mean corpuscular hemoglobin (mass per erythrocyte) 32 pg 25-34 Automated erythrocyte mean corpuscular hemoglobin concentration measurement ( mass/volume) 34 g/dL 32-36 Automated erythrocyte distribution width ratio 14.1 % 10.0-14.5 Automated blood platelet count (count/volume) 143 10*3/uL 130-400 Automated blood platelet mean volume measurement 10.7 [foz_us] 7.4-10.4 Automated blood neutrophils/100 leukocytes 44 % 42-75 Automated blood lymphocytes/100 leukocytes 27 % 12-44 Blood monocytes/100 leukocytes 14 % 0-12 Automated blood eosinophils/100 leukocytes 15 % 0-10 Automated blood basophils/100 leukocytes 1 % 0-10 Blood neutrophils automated count (number/volume) 4.8 10*3 1.8-7.8 Blood lymphocytes automated count (number/volume) 2.9 10*3 1.0-4.0 Blood monocytes automated count (number/volume) 1.5 10*3 0.0-1.0 Automated eosinophil count 1.6 10*3/uL 0.0-0.3 Automated blood basophil count (count/volume) 0.1 10*3/uL 0.0-0.1 Whole blood basic metabolic panel - 03/05/17 14:11 Serum or plasma sodium measurement (moles/volume) 143 mmol/L 135-145 Serum or plasma potassium measurement (moles/volume) 3.9 mmol/L 3.6-5.0 Serum or plasma chloride measurement (moles/volume) 115 mmol/L 98-107 Carbon dioxide 20 mmol/L 21-32 Serum or plasma anion gap determination (moles/volume) 8 mmol/L 5-14 Serum or plasma urea nitrogen measurement (mass/volume) 18 mg/dL 7-18 Serum or plasma creatinine measurement (mass/volume) 1.71 mg/dL 0.60-1.30 Serum or plasma urea nitrogen/creatinine mass ratio 11 NRG Serum or plasma creatinine measurement with calculation of estimated glomerular filtration rate 41 NRG Serum or plasma glucose measurement (mass/volume) 94 mg/dL 70-105 Serum or plasma calcium measurement (mass/volume) 9.0 mg/dL 8.5-10.1 Serum or plasma renal function panel (Na, K, Cl, CO2, BUN, Cr, glucose,Ca, phos , alb) - 03/05/17 14:11 Serum or plasma sodium measurement (moles/volume) 143 mmol/L 135-145 Serum or plasma potassium measurement (moles/volume) 3.9 mmol/L 3.6-5.0 Serum or plasma chloride measurement (moles/volume) 115 mmol/L 98-107 Carbon dioxide 20 mmol/L -32 Serum or plasma anion gap determination (moles/volume) 8 mmol/L 5-14 Serum or plasma urea nitrogen measurement (mass/volume) 18 mg/dL 7-18 Serum or plasma creatinine measurement (mass/volume) 1.71 mg/dL 0.60-1.30 Serum or plasma urea nitrogen/creatinine mass ratio 11 NRG Serum or plasma creatinine measurement with calculation of estimated glomerular filtration rate 41 NRG Serum or plasma glucose measurement (mass/volume) 94 mg/dL 70-105 Serum or plasma calcium measurement (mass/volume) 9.0 mg/dL 8.5-10.1 Serum or plasma albumin measurement (mass/volume) 3.4 g/dL 3.2-4.5 Serum or plasma phosphate measurement (mass/volume) 2.8 mg/dL 2.3-4.7 Serum or plasma renal function panel (Na, K, Cl, CO2, BUN, Cr, glucose,Ca, phos , alb) - 03/16/17 11:47 Serum or plasma sodium measurement (moles/volume) 141 mmol/L 135-145 Serum or plasma potassium measurement (moles/volume) 3.9 mmol/L 3.6-5.0 Serum or plasma chloride measurement (moles/volume) 107 mmol/L 98-107 Carbon dioxide 26 mmol/L -32 Serum or plasma anion gap determination (moles/volume) 8 mmol/L 5-14 Serum or plasma urea nitrogen measurement (mass/volume) 22 mg/dL 7-18 Serum or plasma creatinine measurement (mass/volume) 1.91 mg/dL 0.60-1.30 Serum or plasma urea nitrogen/creatinine mass ratio 12 NRG Serum or plasma creatinine measurement with calculation of estimated glomerular filtration rate 36 NRG Serum or plasma glucose measurement (mass/volume) 143 mg/dL 70-105 Serum or plasma calcium measurement (mass/volume) 8.9 mg/dL 8.5-10.1 Serum or plasma albumin measurement (mass/volume) 3.1 g/dL 3.2-4.5 Serum or plasma phosphate measurement (mass/volume) 3.0 mg/dL 2.3-4.7 Serum or plasma creatine kinase measurement (enzymatic activity/volume) - 03/16 11:47 Serum or plasma creatine kinase measurement (enzymatic activity/volume) 62 U/L 30-200 FK 506 - 03/16/17 11:47 Tacrolimus blood 3.7 % NRG Complete blood count (CBC) with automated white blood cell (WBC) differential - 03/28/17 23:42 Blood leukocytes automated count (number/volume) 18.8 10*3/uL 4.3-11.0 Blood erythrocytes automated count (number/volume) 3.66 10*6/uL 4.35-5.85 Venous blood hemoglobin measurement (mass/volume) 11.6 g/dL 13.3-17.7 Blood hematocrit (volume fraction) 34 % 40-54 Automated erythrocyte mean corpuscular volume 93 [foz_us] 80-99 Automated erythrocyte mean corpuscular hemoglobin (mass per erythrocyte) 32 pg 25-34 Automated erythrocyte mean corpuscular hemoglobin concentration measurement ( mass/volume) 34 g/dL 32-36 Automated erythrocyte distribution width ratio 14.3 % 10.0-14.5 Automated blood platelet count (count/volume) 137 10*3/uL 130-400 Automated blood platelet mean volume measurement 11.3 [foz_us] 7.4-10.4 Automated blood neutrophils/100 leukocytes 79 % 42-75 Automated blood lymphocytes/100 leukocytes 14 % 12-44 Blood monocytes/100 leukocytes 4 % 0-12 Automated blood eosinophils/100 leukocytes 3 % 0-10 Automated blood basophils/100 leukocytes 0 % 0-10 Blood neutrophils automated count (number/volume) 14.8 10*3 1.8-7.8 Blood lymphocytes automated count (number/volume) 2.6 10*3 1.0-4.0 Blood monocytes automated count (number/volume) 0.8 10*3 0.0-1.0 Automated eosinophil count 0.6 10*3/uL 0.0-0.3 Automated blood basophil count (count/volume) 0.0 10*3/uL 0.0-0.1 Blood manual differential performed detection - 03/28/17 23:42 Blood monocytes/100 leukocytes 1 % NRG Manual blood segmented neutrophils/100 leukocytes 68 % NRG Blood band neutrophils/100 leukocytes 13 % NRG Manual blood lymphocytes/100 leukocytes 14 % NRG Manual eosinophils/100 leukocytes in nose 2 % NRG Manual blood basophils/100 leukocytes 0 % NRG Blood lymphocytes variant/100 leukocytes 2 % NRG Blood anisocytosis detection by light microscopy SLIGHT NRG PT panel in platelet poor plasma by coagulation assay - 03/28/17 23:42 Prothrombin time (PT) in platelet poor plasma by coagulation assay 14.6 s 12.2-14.7 INR in platelet poor plasma or blood by coagulation assay 1.1 0.8-1.4 Activated partial thromboplastin time (aPTT) in platelet poor plasma bycoagulation assay - 03/28/17 23:42 Activated partial thromboplastin time (aPTT) in platelet poor plasma bycoagulation assay 41 s 24-35 Comprehensive metabolic panel - 03/28/17 23:42 Serum or plasma sodium measurement (moles/volume) 139 mmol/L 135-145 Serum or plasma potassium measurement (moles/volume) 4.2 mmol/L 3.6-5.0 Serum or plasma chloride measurement (moles/volume) 108 mmol/L 98-107 Carbon dioxide 22 mmol/L 21-32 Serum or plasma anion gap determination (moles/volume) 9 mmol/L 5-14 Serum or plasma urea nitrogen measurement (mass/volume) 24 mg/dL 7-18 Serum or plasma creatinine measurement (mass/volume) 2.33 mg/dL 0.60-1.30 Serum or plasma urea nitrogen/creatinine mass ratio 10 NRG Serum or plasma creatinine measurement with calculation of estimated glomerular filtration rate 29 NRG Serum or plasma glucose measurement (mass/volume) 111 mg/dL 70-105 Serum or plasma calcium measurement (mass/volume) 8.1 mg/dL 8.5-10.1 Serum or plasma total bilirubin measurement (mass/volume) 1.0 mg/dL 0.1-1.0 Serum or plasma alkaline phosphatase measurement (enzymatic activity/volume) 130 U/L 40-136 Serum or plasma aspartate aminotransferase measurement (enzymatic activity/ volume) 72 U/L 5-34 Serum or plasma alanine aminotransferase measurement (enzymatic activity/volume ) 49 U/L 0-55 Serum or plasma protein measurement (mass/volume) 6.5 g/dL 6.4-8.2 Serum or plasma albumin measurement (mass/volume) 2.8 g/dL 3.2-4.5 Ammonia - 03/28/17 23:42 Ammonia 93 umol/L 11-32 Serum or plasma salicylates measurement (mass/volume) - 03/28/17 23:42 Serum or plasma salicylates measurement (mass/volume) < mg/dL 5.0-20.0 Serum or plasma lithium measurement (moles/volume) - 03/28/17 23:42 BNP level 208.7 pg/mL <100.0 Complete urinalysis with reflex to culture - 03/28/17 13:30 Urine color determination YELLOW NRG Urine clarity determination CLEAR NRG Urine pH measurement by test strip 5 5-9 Specific gravity of urine by test strip 1.025 1.016- 1.022 Urine protein assay by test strip, semi-quantitative 3+ NEGATIVE Urine glucose detection by automated test strip NEGATIVE NEGATIVE Erythrocytes detection in urine sediment by light microscopy NEGATIVE NEGATIVE Urine ketones detection by automated test strip NEGATIVE NEGATIVE Urine nitrite detection by test strip NEGATIVE NEGATIVE Urine total bilirubin detection by test strip NEGATIVE NEGATIVE Urine urobilinogen measurement by automated test strip (mass/volume) NORMAL NORMAL Urine leukocyte esterase detection by dipstick 1+ NEGATIVE Automated urine sediment erythrocyte count by microscopy (number/high power field) NONE NRG Automated urine sediment leukocyte count by microscopy (number/high power field ) RARE NRG Bacteria detection in urine sediment by light microscopy NEGATIVE NRG Squamous epithelial cells detection in urine sediment by light microscopy 2-5 NRG Crystals detection in urine sediment by light microscopy NONE NRG Casts detection in urine sediment by light microscopy NONE NRG Mucus detection in urine sediment by light microscopy NEGATIVE NRG Complete urinalysis with reflex to culture NO NRG Urine protein/creatinine mass ratio - 03/28/17 13:30 Urine protein measurement (mass/volume) 66 mg/dL 6-12 Urine creatinine measurement (mass/volume) 208 mg/dL 30- 125 Urine protein/creatinine mass ratio 0.32 NRG Automated blood complete blood count (hemogram) panel - 03/28/17 13:40 Blood leukocytes automated count (number/volume) 14.4 10*3/uL 4.3-11.0 Blood erythrocytes automated count (number/volume) 3.90 10*6/uL 4.35-5.85 Venous blood hemoglobin measurement (mass/volume) 12.2 g/dL 13.3-17.7 Blood hematocrit (volume fraction) 36 % 40-54 Automated erythrocyte mean corpuscular volume 92 [foz_us] 80-99 Automated erythrocyte mean corpuscular hemoglobin (mass per erythrocyte) 31 pg 25-34 Automated erythrocyte mean corpuscular hemoglobin concentration measurement ( mass/volume) 34 g/dL 32-36 Automated erythrocyte distribution width ratio 14.2 % 10.0-14.5 Automated blood platelet count (count/volume) 153 10*3/uL 130-400 Automated blood platelet mean volume measurement 11.4 [foz_us] 7.4-10.4 Liver function panel (serum or plasma alk phos, alb, total and direct bili, total protein, ALT, AST) - 03/28/17 13:40 Serum or plasma total bilirubin measurement (mass/volume) 1.2 mg/dL 0.1-1.0 Serum or plasma alkaline phosphatase measurement (enzymatic activity/volume) 144 U/L 40-136 Serum or plasma aspartate aminotransferase measurement (enzymatic activity/ volume) 85 U/L 5-34 Serum or plasma alanine aminotransferase measurement (enzymatic activity/volume ) 57 U/L 0-55 Serum or plasma protein measurement (mass/volume) 7.2 g/dL 6.4-8.2 Serum or plasma albumin measurement (mass/volume) 3.0 g/dL 3.2-4.5 Bilirubin direct 0.5 mg/dL 0.0-0.3 Serum or plasma indirect bilirubin measurement (mass/volume) 0.7 mg/ dL NRG Serum or plasma renal function panel (Na, K, Cl, CO2, BUN, Cr, glucose,Ca, phos , alb) - 03/28/17 13:40 Serum or plasma sodium measurement (moles/volume) 138 mmol/L 135-145 Serum or plasma potassium measurement (moles/volume) 4.3 mmol/L 3.6-5.0 Serum or plasma chloride measurement (moles/volume) 108 mmol/L 98-107 Carbon dioxide 23 mmol/L 21-32 Serum or plasma anion gap determination (moles/volume) 7 mmol/L 5-14 Serum or plasma urea nitrogen measurement (mass/volume) 21 mg/dL 7-18 Serum or plasma creatinine measurement (mass/volume) 2.15 mg/dL 0.60-1.30 Serum or plasma urea nitrogen/creatinine mass ratio 10 NRG Serum or plasma creatinine measurement with calculation of estimated glomerular filtration rate 32 NRG Serum or plasma glucose measurement (mass/volume) 99 mg/dL 70-105 Serum or plasma calcium measurement (mass/volume) 8.5 mg/dL 8.5-10.1 Serum or plasma phosphate measurement (mass/volume) 3.0 mg/dL 2.3-4.7 Serum or plasma uric acid measurement (mass/volume) - 03/28/17 13:40 Serum or plasma uric acid measurement (mass/volume) 7.2 mg/dL 2.6-7.2 Magnesium - 03/28/17 13:40 Magnesium 1.8 mg/dL 1.8-2.4 Serum or plasma creatine kinase measurement (enzymatic activity/volume) - 03/28 13:40 Serum or plasma creatine kinase measurement (enzymatic activity/volume) 49 U/L 30-200 Ammonia - 03/28/17 13:40 Ammonia 65 umol/L 11-32 Serum or plasma intact pararthyroid hormone measurement (mass/volume) - 13:40 Serum or plasma intact parathyroid hormone measurement (mass/volume) 30.0 pg/mL 10.0-65.0 Bio-intact parathyroid hormone (PTH) measurement with calcium 8.4 % 8.5-10.5 Serum or plasma troponin i.cardiac measurement (mass/volume) - 03/28/17 23:42 Serum or plasma troponin i.cardiac measurement (mass/volume) < ng/ mL <0.30 Arterial blood gas measurement - 03/28/17 23:49 Blood pCO2 46 mm[Hg] 35-45 Blood pO2 114 mm[Hg] 79-93 Arterial blood bicarbonate measurement (moles/volume) 24 mmol/L 23-27 Arterial blood base excess by calculation -1.3 mmol/L - 2.5-2.5 Arterial blood oxygen saturation measurement 97 % 94-100 * Inhaled oxygen flow rate 15L NRG Arterial blood pH measurement with patient temperature correction 7.33 7.37-7.43 Arterial blood carbon dioxide, total measurement (moles/volume) 25.3 mmol/L 21.0-31.0 Body site L RAD NRG Assessment of wrist artery patency prior to arterial puncture YES- POS NRG Setting of ventilation mode NO NRG Measurement of body temperature 97.6 NRG Blood lactic acid measurement (moles/volume) - 03/28/17 23:54 Blood lactic acid measurement (moles/volume) 1.13 mmol/L 0.50-2.00 Bacterial blood culture - 03/28/17 23:54 Bacterial blood culture NG NRG Bacterial blood culture - 03/29/17 00:30 Bacterial blood culture NG NRG Methicillin resistant Staphylococcus aureus (MRSA) screening culture - 02:15 Methicillin resistant Staphylococcus aureus (MRSA) screening culture NEG NRG Complete blood count (CBC) with automated white blood cell (WBC) differential - 03/29/17 04:30 Blood leukocytes automated count (number/volume) 13.4 10*3/uL 4.3-11.0 Blood erythrocytes automated count (number/volume) 3.53 10*6/uL 4.35-5.85 Venous blood hemoglobin measurement (mass/volume) 11.1 g/dL 13.3-17.7 Blood hematocrit (volume fraction) 33 % 40-54 Automated erythrocyte mean corpuscular volume 92 [foz_us] 80-99 Automated erythrocyte mean corpuscular hemoglobin (mass per erythrocyte) 31 pg 25-34 Automated erythrocyte mean corpuscular hemoglobin concentration measurement ( mass/volume) 34 g/dL 32-36 Automated erythrocyte distribution width ratio 14.1 % 10.0-14.5 Automated blood platelet count (count/volume) 105 10*3/uL 130-400 Automated blood platelet mean volume measurement 11.9 [foz_us] 7.4-10.4 Automated blood neutrophils/100 leukocytes 78 % 42-75 Automated blood lymphocytes/100 leukocytes 9 % 12-44 Blood monocytes/100 leukocytes 9 % 0-12 Automated blood eosinophils/100 leukocytes 5 % 0-10 Automated blood basophils/100 leukocytes 0 % 0-10 Blood neutrophils automated count (number/volume) 10.4 10*3 1.8-7.8 Blood lymphocytes automated count (number/volume) 1.2 10*3 1.0-4.0 Blood monocytes automated count (number/volume) 1.2 10*3 0.0-1.0 Automated eosinophil count 0.6 10*3/uL 0.0-0.3 Automated blood basophil count (count/volume) 0.0 10*3/uL 0.0-0.1 Whole blood basic metabolic panel - 03/29/17 04:30 Serum or plasma sodium measurement (moles/volume) 139 mmol/L 135-145 Serum or plasma potassium measurement (moles/volume) 4.2 mmol/L 3.6-5.0 Serum or plasma chloride measurement (moles/volume) 111 mmol/L 98-107 Carbon dioxide 21 mmol/L 21-32 Serum or plasma anion gap determination (moles/volume) 7 mmol/L 5-14 Serum or plasma urea nitrogen measurement (mass/volume) 24 mg/dL 7-18 Serum or plasma creatinine measurement (mass/volume) 2.03 mg/dL 0.60-1.30 Serum or plasma urea nitrogen/creatinine mass ratio 12 NRG Serum or plasma creatinine measurement with calculation of estimated glomerular filtration rate 34 NRG Serum or plasma glucose measurement (mass/volume) 118 mg/dL 70-105 Serum or plasma calcium measurement (mass/volume) 7.6 mg/dL 8.5-10.1 Serum or plasma phosphate measurement (mass/volume) - 03/29/17 04:30 Serum or plasma phosphate measurement (mass/volume) 2.4 mg/dL 2.3-4.7 Magnesium - 03/29/17 04:30 Magnesium 1.4 mg/dL 1.8-2.4 Complete blood count (CBC) with automated white blood cell (WBC) differential - 03/29/17 20:35 Blood leukocytes automated count (number/volume) 14.9 10*3/uL 4.3-11.0 Blood erythrocytes automated count (number/volume) 3.02 10*6/uL 4.35-5.85 Venous blood hemoglobin measurement (mass/volume) 9.5 g/dL 13.3-17.7 Blood hematocrit (volume fraction) 29 % 40-54 Automated erythrocyte mean corpuscular volume 94 [foz_us] 80-99 Automated erythrocyte mean corpuscular hemoglobin (mass per erythrocyte) 32 pg 25-34 Automated erythrocyte mean corpuscular hemoglobin concentration measurement ( mass/volume) 33 g/dL 32-36 Automated erythrocyte distribution width ratio 14.3 % 10.0-14.5 Automated blood platelet count (count/volume) 82 10*3/uL 130-400 Automated blood platelet mean volume measurement 11.8 [foz_us] 7.4-10.4 Automated blood neutrophils/100 leukocytes 67 % 42-75 Automated blood lymphocytes/100 leukocytes 16 % 12-44 Blood monocytes/100 leukocytes 11 % 0-12 Automated blood eosinophils/100 leukocytes 5 % 0-10 Automated blood basophils/100 leukocytes 0 % 0-10 Blood neutrophils automated count (number/volume) 10.0 10*3 1.8-7.8 Blood lymphocytes automated count (number/volume) 2.4 10*3 1.0-4.0 Blood monocytes automated count (number/volume) 1.7 10*3 0.0-1.0 Automated eosinophil count 0.8 10*3/uL 0.0-0.3 Automated blood basophil count (count/volume) 0.0 10*3/uL 0.0-0.1 Blood lactic acid measurement (moles/volume) - 03/29/17 20:35 Blood lactic acid measurement (moles/volume) 1.77 mmol/L 0.50-2.00 Comprehensive metabolic panel - 03/29/17 20:35 Serum or plasma sodium measurement (moles/volume) 138 mmol/L 135-145 Serum or plasma potassium measurement (moles/volume) 3.9 mmol/L 3.6-5.0 Serum or plasma chloride measurement (moles/volume) 112 mmol/L 98-107 Carbon dioxide 20 mmol/L 21-32 Serum or plasma anion gap determination (moles/volume) 6 mmol/L 5-14 Serum or plasma urea nitrogen measurement (mass/volume) 28 mg/dL 7-18 Serum or plasma creatinine measurement (mass/volume) 2.09 mg/dL 0.60-1.30 Serum or plasma urea nitrogen/creatinine mass ratio 13 NRG Serum or plasma creatinine measurement with calculation of estimated glomerular filtration rate 33 NRG Serum or plasma glucose measurement (mass/volume) 89 mg/dL 70-105 Serum or plasma calcium measurement (mass/volume) 7.0 mg/dL 8.5-10.1 Serum or plasma total bilirubin measurement (mass/volume) 0.9 mg/dL 0.1-1.0 Serum or plasma alkaline phosphatase measurement (enzymatic activity/volume) 100 U/L 40-136 Serum or plasma aspartate aminotransferase measurement (enzymatic activity/ volume) 50 U/L 5-34 Serum or plasma alanine aminotransferase measurement (enzymatic activity/volume ) 38 U/L 0-55 Serum or plasma protein measurement (mass/volume) 5.4 g/dL 6.4-8.2 Serum or plasma albumin measurement (mass/volume) 2.3 g/dL 3.2-4.5 Ammonia - 03/29/17 20:35 Ammonia 41 umol/L 11-32 Serum or plasma troponin i.cardiac measurement (mass/volume) - 03/29/17 20:35 Serum or plasma troponin i.cardiac measurement (mass/volume) < ng/ mL <0.30 THYROID STIMULATING HORMONE - 03/29/17 20:35 THYROID STIMULATING HORMONE 0.64 u[iU]/mL 0.35-4.94 Ammonia - 03/29/17 20:35 Ammonia 41 umol/L 11-32 THYROID STIMULATING HORMONE - 03/29/17 20:35 THYROID STIMULATING HORMONE 0.64 u[iU]/mL 0.35-4.94 Encounters ACCT No. Visit Date/Time Discharge Status Pt. Type Provider Facility Loc./Unit Complaint [id number] 03/29/2017 01:20:00 03/29/2017 22:02:00 DIS Inpatient FREDIS STARR, RAMÍREZ [place] [facility] ICU PNEUMONITIS VS PNEUMONIA, REST DISTRESS,HYPOXIA, [id number] 03/28/2017 13:08:00 03/28/2017 23:59:59 CLS Outpatient TEREZA BRADEN MD [facility] LAB R74.60 [id number] 03/28/2017 12:58:00 03/28/2017 23:59:59 CLS Outpatient PRISCILA CHANDLER MD [facility] LAB N18.3 E55.9 I12.9 R80.8 [id number] 03/16/2017 11:27:00 03/16/2017 23:59:59 CLS Outpatient PRISCILA CHANDLER MD [facility] LAB N18.3 [id number] 03/05/2017 13:54:00 03/05/2017 23:59:59 CLS Outpatient TEREZA BRADEN MD [facility] LAB K74.60 [id number] 03/05/2017 13:49:00 03/05/2017 23:59:59 CLS Outpatient PRISCILA CHANDLER MD [facility] LAB CKD STAGE III [id number] 02/21/2017 14:20:00 02/21/2017 23:59:59 CLS Outpatient PRISCILA CHANDLER MD [facility] LAB CKD STAGE III [id number] 02/21/2017 13:42:00 02/21/2017 23:59:59 CLS Outpatient TEREZA BRADEN MD [facility] LAB K74.60 [id number] 01/30/2017 16:05:00 01/30/2017 23:59:59 CLS Outpatient PRISCILA CHANDLER MD [facility] LAB CKD STAGE III [id number] 01/25/2017 13:00:00 01/25/2017 23:59:59 CLS Outpatient PRISCILA CHANDLER MD [facility] LAB N18.3 [id number] 01/21/2017 19:45:00 01/21/2017 20:06:00 DIS Emergency MAXIME AMAYA [employer] [facility] ER SIDE AB PAIN [id number] 01/21/2017 09:54:00 01/21/2017 10:55:00 DIS Emergency MAIXME AMAYA [employer] [facility] ER R SIDE PAIN [id number] 01/08/2017 09:15:00 01/08/2017 23:59:59 CLS Preadmit TEREZA BRADEN MD [facility] RAD POST LIVER TRANSPLANT, RUQ PAIN [id number] 12/26/2016 13:36:00 12/26/2016 23:59:59 CLS Outpatient TEREZA BRADEN MD [facility] LAB K74.60 [id number] 12/21/2016 13:55:00 12/21/2016 23:59:59 CLS Outpatient PRISCILA CHANDLER MD [facility] LAB N18.3 E55.9 E83.42 J20 [id number] 11/28/2016 02:13:00 11/28/2016 02:18:00 DIS Emergency JJ CORRAL DO [facility] ER NOT FEELING WELL,LIVER TRANSPLANT IN 2005 [id number] 11/27/2016 13:23:00 11/27/2016 23:59:59 CLS Outpatient TEREZA BRADEN MD [facility] LAB POST TRANSPLANT [id number] 11/08/2016 12:53:00 11/08/2016 23:59:59 CLS Outpatient TEREZA BRADEN MD [facility] LAB LOW MAGNESIUM [id number] 07/31/2016 12:48:00 07/31/2016 23:59:59 CLS Outpatient EMELIA LOZOYA APRN [facility] RAD LUNG MASS,COPD [id number] 07/28/2016 10:03:00 07/28/2016 23:59:59 CLS Outpatient TEREZA BRADEN MD [facility] RAD CIRRHOSIS [id number] 06/26/2016 16:10:00 06/26/2016 23:59:59 CLS Outpatient EMELIA LOZOYA APRN [facility] RT COPD [id number] 05/24/2016 12:50:00 05/24/2016 23:59:59 CLS Outpatient TEREZA BRADEN MD [facility] LAB UNSPECIFIED CIRRHOSIS OF LIVER [id number] 05/24/2016 13:48:00 05/24/2016 14:31:00 DIS Outpatient PRISCILA CHANDLER MD [facility] LAB CHRONIC LIVER DISEASE , CKD, VIT D DEF, HYPERTHYROI [id number] 04/06/2016 10:24:00 04/20/2016 00:01:00 DIS Outpatient TEREZA BRADEN MD [facility] LAB CHRONIC LIVER DISEASE, CKD, OTHER [id number] 02/01/2016 00:08:00 02/01/2016 23:59:59 CLS Preadmit MICHAEL GLASS MD [facility] LAB HEPATIC CEPHALITIS [id number] 11/02/2015 13:41:00 01/31/2016 00:01:00 DIS Outpatient MICHAEL GLASS MD [facility] LAB HEPATIC CEPHALITIS [id number] 12/13/2015 09:35:00 12/13/2015 23:59:59 CLS Outpatient TEREZA BRADEN MD [facility] LAB Unspecified cirrhosis of liver [id number] 11/08/2015 08:07:00 11/08/2015 23:59:59 CLS Outpatient PRISCILA CHANDLER MD [facility] LAB [id number] 10/29/2015 09:40:00 10/29/2015 23:59:59 CLS Outpatient TEREZA BRADEN MD [facility] LAB CHRONIC LIVER DISEASE, CKD, OTHER [id number] 10/29/2015 09:37:00 10/29/2015 23:59:59 CLS Outpatient EDUARDO PALACIO [facility] Liver replaced by transplant,Long-term med use [id number] 10/29/2015 09:07:00 10/29/2015 23:59:59 CLS Outpatient KIMBERLEY HILL DO [facility] RAD LUNG MASS,COPD [id number] 08/03/2015 08:56:00 08/03/2015 23:59:59 CLS Outpatient MARJAN STANLEY DO [facility] RAD FUNGAL LUNG INFECTION [id number] 07/22/2015 13:44:00 07/24/2015 09:58:00 DIS Inpatient MICHAEL GLASS MD [facility] 4TH FUNGAL LUNG INFECTION,S/ P LIVER TRANSPLANT [id number] 07/22/2015 12:44:00 07/22/2015 23:59:59 CLS Preadmit MICHAEL GLASS MD [id number] 07/22/2015 11:24:00 07/22/2015 23:59:59 CLS Outpatient MICHAEL GLASS MD [facility] LAB HEPATIC CEPHALITIS [id number] 07/22/2015 11:07:00 07/22/2015 23:59:59 CLS Outpatient MICHAEL GLASS MD [facility] RAD CHRONIC COUGH,ABD PAIN [id number] 06/30/2015 14:30:00 07/12/2015 00:01:00 DIS Outpatient TEREZA BRADEN MD [facility] LAB CHRONIC LIVER DISEASE, CKD, OTHER [id number] 06/30/2015 13:41:00 07/12/2015 00:01:00 DIS Outpatient TEREZA BRADEN MD [facility] LAB Liver replaced by transplant,Long-term med use [id number] 04/07/2015 13:37:00 04/07/2015 13:49:00 DIS Outpatient PRISCILA CHANDLER MD [facility] CKD STAGE III, HYPOMAGNESEMIA,VIT D DEFICIENCY [id number] 03/17/2015 10:29:00 04/07/2015 00:01:00 DIS Outpatient TEREZA BRADEN MD [facility] LAB CHRONIC LIVER DISEASE, CKD, OTHER [id number] 03/17/2015 10:32:00 03/17/2015 23:59:59 CLS Outpatient EDUARDO PALACIO [facility] LAB 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 def, [employer]ENT[employer] TRAINEE MED USE,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 [id number] 02/05/2015 14:20:00 02/16/2015 00:01:00 DIS Outpatient TEREZA BRADEN MD [facility] LAB CHRONIC LIVER DISEASE, CKD, OTHER [id number] 02/05/2015 14:22:00 02/05/2015 23:59:59 CLS Outpatient MICHAEL GLASS MD [facility] LAB FEVER, LIVER DISEASE, LIVER TRANSPLANT [id number] 01/05/2015 10:58:00 01/05/2015 23:59:59 CLS Outpatient TEREZA BRADEN MD [facility] RAD POST LIVER TRANSPLANT, CIRROHSIS [id number] 11/18/2014 13:21:00 11/18/2014 23:59:59 CLS Outpatient MICHAEL GLASS MD [facility] LAB CRAMPING, FEVER, RENTAL MANAGEMENT TRAINEE MED USE [id number] 11/18/2014 09:09:00 11/18/2014 09:12:00 DIS Outpatient EDUARDO PALACIO [facility] LAB LIVER TRANSPLANT [id number] 09/25/2014 09:57:00 11/09/2014 00:01:00 DIS Outpatient TEREZA BRADEN MD [facility] LAB CHRONIC LIVER DISEASE, CKD, OTHER [id number] 08/18/2014 09:04:00 11/09/2014 00:01:00 DIS Outpatient EDUARDO PALACIO [facility] LAB LIVER TRANSPLANT [id number] 05/28/2014 07:53:00 07/20/2014 00:01:00 DIS Outpatient TEREZA BRADEN MD [facility] LAB CHRONIC LIVER DISEASE, CKD, OTHER [id number] 05/28/2014 07:35:00 06/21/2014 00:01:00 DIS Outpatient EDUARDO PALACIO [facility] LAB LIVER TRANSPLANT [id number] 05/04/2014 15:02:00 05/04/2014 23:59:59 CLS Outpatient RAMESH STARR, PRISCILA Vieira [facility] LAB CKD, VIT D DEFICIENCY , HYPOMAGNESEMIA [id number] 04/21/2014 12:58:00 04/24/2014 08:14:00 DIS Outpatient ETREZA BRADEN MD [facility] LAB CHRONIC KIDNEY DISEASE, OTHER SPECIFIED DISEASES [id number] 04/10/2014 13:15:00 04/12/2014 11:06:00 DIS Inpatient MARIA LUISA STARR, MICHAEL Joel [facility] 4TH DEHYDRATION, ENCEPHALOTAPHIA,WEAKNESS [id number] 03/23/2014 09:34:00 03/23/2014 23:59:59 CLS Outpatient RAMESH STARR, PRISCILA Vieira [facility] LAB CKD, VIT D DEFICIENCY , HYPOMAGNESEMIA [id number] 02/10/2014 11:22:00 03/15/2014 00:01:00 DIS Outpatient TEREZA BRADEN MD [facility] LAB CHRONIC KIDNEY DISEASE, OTHER SPECIFIED DISEASES [id number] 01/23/2014 07:42:00 03/15/2014 00:01:00 DIS Outpatient EDUARDO PALACIO [facility] LAB LIVER TRANSPLANT [id number] 12/02/2013 12:54:00 03/02/2014 00:01:00 DIS Outpatient ANGELICA STARR, LOYDA Joel [facility] CARD IRREGULAR HEARTBEAT, CHRONIC RENAL DISEASE [id number] 01/26/2014 09:54:00 01/26/2014 23:59:59 CLS Outpatient MICHAEL GLASS MD [facility] RAD RT LOWER BACK AND BUTTOCK PAIN [id number] 01/16/2014 11:27:00 01/16/2014 23:59:59 CLS Outpatient MICHAEL GLASS MD [facility] RAD LOW BACK PAIN [id number] 12/29/2013 12:34:00 12/29/2013 14:26:00 DIS Emergency MINERVA PA, SALOME L [facility] ER FALL/RIGHT HIP PAIN [id number] 11/17/2013 13:11:00 12/11/2013 00:01:00 DIS Outpatient EDUARDO PALACIO [facility] LAB LIVER TRANSPLANT [id number] 11/17/2013 13:10:00 11/20/2013 00:01:00 DIS Outpatient TEREZA BRADEN MD [facility] LAB CHRONIC KIDNEY DISEASE, OTHER SPECIFIED DISEASES [id number] 11/17/2013 13:04:00 11/17/2013 23:59:59 CLS Outpatient ANGELICA STARR, LOYDA Joel [facility] CARD IRREGULAR HEART BEAT,CRD ,HYPERGLYCEMIA [id number] 10/29/2013 08:00:00 10/29/2013 23:59:59 CLS Outpatient TEREZA BRADEN MD [facility] LAB LIVER TRANSPLANT, ELEVATED PROGRAF [id number] 10/06/2013 08:12:00 10/06/2013 23:59:59 CLS Outpatient MICHAEL GLASS MD [facility] CARD ELECTROLYTES IMBALANCE, HYPOCALCEMIA [id number] 08/22/2013 07:15:00 09/10/2013 00:01:00 DIS Outpatient EDUARDO PALACIO [facility] LAB LIVER TRANSPLANT [id number] 08/22/2013 07:33:00 08/22/2013 23:59:59 CLS Outpatient PRISCILA CHANDLER MD [facility] LAB CKD III, HYPOKALEMIA , HYPERPARATHYROIDISM,VIT D DE [id number] 08/08/2013 08:53:00 08/08/2013 23:59:59 CLS Outpatient TEREZA BRADEN MD [facility] LAB POST LIVER TRANSPLANT [id number] 07/07/2013 10:13:00 07/08/2013 18:50:00 DIS Inpatient MARIA LUISA STARR, MICHAEL Joel [facility] 4TH PNEUMONIA,RUQ PAIN [id number] 05/22/2013 08:24:00 06/30/2013 00:01:00 DIS Outpatient TEREZA BRADEN MD [facility] CHRONIC KIDNEY DISEASE, OTHER SPECIFIED DISEASES [id number] 05/22/2013 08:24:00 06/11/2013 00:01:00 DIS Outpatient EDUARDO PALACIO [facility] LAB LIVER TRANSPLANT [id number] 04/24/2013 10:57:00 04/24/2013 23:59:59 CLS Outpatient MICHAEL GLASS MD [facility] RAD RT ANKLE PAIN AND SWELLING [id number] 04/18/2013 08:10:00 04/18/2013 23:59:59 CLS Outpatient PRISCILA CHANDLER MD [facility] LAB CHRONIC KIDNEY DISEASE STAGE III [id number] 04/01/2013 10:29:00 04/07/2013 12:02:00 DIS Outpatient EDUARDO PALACIO [facility] LAB TRANSPLANT [id number] 03/13/2013 11:35:00 03/30/2013 00:01:00 DIS Outpatient TEREZA BRADEN MD [facility] Other specified diseases, Chronic kidney disease, [id number] 02/12/2013 12:11:00 02/12/2013 23:59:59 CLS Outpatient PRISCILA CHANDLER MD [facility] LAB LIVER TRANSPLANT,VIT D DEFICIENCY [id number] 02/12/2013 12:11:00 02/12/2013 23:59:59 CLS Outpatient MICHAEL GLASS MD [facility] LAB FATIGUE, YEARLY SCREENING [id number] 01/29/2013 22:53:00 01/29/2013 23:15:00 DIS Emergency JJ CORRAL DO [facility] ER RT HAND/FINGER INJ [id number] 12/12/2012 11:43:00 12/12/2012 23:59:59 CLS Outpatient TEREZA BRADEN MD [facility] LAB LIVER TRANSPLANT [id number] 11/28/2012 10:45:00 11/28/2012 23:59:59 CLS Outpatient EDUARDO PAALCIO [facility] ESLD [id number] 11/14/2012 11:00:00 11/14/2012 23:59:59 CLS Outpatient PRISCILA CHANDLER MD [facility] END STAGE LIVER DISEASE, CKD [id number] 10/31/2012 11:25:00 10/31/2012 23:59:59 CLS Outpatient PRISCILA CHANDLER MD [facility] ESLD, CKD [id number] 10/31/2012 11:25:00 10/31/2012 23:59:59 CLS Outpatient EDUARDO PALACIO [facility] ESLD, CKD [id number] 12/27/2015 00:00:00 Document Registration [id number] 07/22/2015 14:20:00 Document Registration [id number] 06/11/2015 15:15:00 Document Registration [id number] 06/11/2015 15:14:00 Document Registration [id number] 06/11/2015 15:14:00 Document Registration [id number] 06/11/2015 15:14:00 Document Registration [id number] 06/11/2015 15:14:00 Document Registration [id number] 06/11/2015 15:14:00 Document Registration [id number] 06/11/2015 15:14:00 Document Registration [id number] 09/25/2014 10:00:00 Document Registration [id number] 09/02/2014 10:04:00 Document Registration [id number] 03/03/2014 08:00:00 Document Registration [id number] 10/18/2012 10:20:00 Document Registration [id number] 10/17/2012 00:00:00 Document Registration [id number] 10/03/2012 10:55:00 Document Registration [id number] 09/19/2012 11:48:00 Document Registration [id number] 09/05/2012 11:26:00 Document Registration [id number] 08/23/2012 11:30:00 Document Registration [id number] 08/08/2012 11:45:00 Document Registration [id number] 07/19/2012 14:09:00 Document Registration [id number] 07/18/2012 10:45:00 Document Registration [id number] 07/11/2012 09:30:00 Document Registration [id number] 06/27/2012 10:10:00 Document Registration [id number] 06/13/2012 11:30:00 Document Registration [id number] 05/28/2012 10:25:00 Document Registration [id number] 05/16/2012 14:30:00 Document Registration [id number] 05/01/2012 10:20:00 Document Registration [id number] 04/18/2012 10:50:00 Document Registration [id number] 04/04/2012 11:40:00 Document Registration [id number] 03/21/2012 10:26:00 Document Registration [id number] 03/02/2012 10:55:00 Document Registration [id number] 03/01/2012 07:48:00 Document Registration [id number] 02/29/2012 09:30:00 Document Registration [id number] 02/23/2012 10:20:00 Document Registration [id number] 02/09/2012 10:00:00 Document Registration [id number] 02/01/2012 13:50:00 Document Registration [id number] 01/20/2012 18:52:00 Document Registration [id number] 01/19/2012 12:05:00 Document Registration [id number] 12/29/2011 12:00:00 Document Registration [id number] 12/14/2011 11:45:00 Document Registration [id number] 12/07/2011 11:00:00 Document Registration [id number] 11/30/2011 11:40:00 Document Registration [id number] 11/16/2011 12:00:00 Document Registration [id number] 11/02/2011 10:50:00 Document Registration [id number] 10/19/2011 12:55:00 Document Registration [id number] 10/06/2011 09:33:00 Document Registration [id number] 09/21/2011 11:00:00 Document Registration [id number] 09/07/2011 11:45:00 Document Registration [id number] 08/28/2011 08:57:00 Document Registration [id number] 08/24/2011 12:00:00 Document Registration [id number] 08/24/2011 12:00:00 Document Registration [id number] 08/10/2011 12:10:00 Document Registration [id number] 08/10/2011 11:30:00 Document Registration [id number] 07/26/2011 08:00:00 Document Registration [id number] 07/14/2011 09:15:00 Document Registration [id number] 06/27/2011 11:00:00 Document Registration [id number] 06/13/2011 10:45:00 Document Registration [id number] 05/30/2011 11:15:00 Document Registration [id number] 05/30/2011 11:15:00 Document Registration [id number] 05/12/2011 11:00:00 Document Registration [id number] 05/04/2011 11:10:00 Document Registration [id number] 05/04/2011 11:10:00 Document Registration [id number] 04/27/2011 11:30:00 Document Registration [id number] 04/13/2011 10:20:00 Document Registration [id number] 03/23/2011 11:00:00 Document Registration [id number] 03/08/2011 11:10:00 Document Registration [id number] 02/23/2011 04:03:00 Document Registration [id number] 02/09/2011 10:55:00 Document Registration [id number] 01/26/2011 14:15:00 Document Registration [id number] 01/12/2011 10:45:00 Document Registration [id number] 12/27/2010 10:00:00 Document Registration [id number] 12/13/2010 10:45:00 Document Registration [id number] 11/24/2010 11:50:00 Document Registration [id number] 11/09/2010 10:15:00 Document Registration [id number] 11/03/2010 11:20:00 Document Registration [id number] 10/28/2010 10:45:00 Document Registration [id number] 10/20/2010 11:35:00 Document Registration [id number] 10/20/2010 11:35:00 Document Registration [id number] 10/11/2010 11:55:00 Document Registration [id number] 10/04/2010 10:20:00 Document Registration [id number] 09/27/2010 10:10:00 Document Registration [id number] 09/27/2010 10:10:00 Document Registration [id number] 09/13/2010 10:15:00 Document Registration [id number] 09/06/2010 10:45:00 Document Registration [id number] 08/30/2010 10:45:00 Document Registration [id number] 08/30/2010 10:45:00 Document Registration [id number] 08/23/2010 10:30:00 Document Registration [id number] 08/18/2010 10:40:00 Document Registration [id number] 08/11/2010 11:15:00 Document Registration [id number] 08/02/2010 10:30:00 Document Registration [id number] 07/26/2010 11:30:00 Document Registration [id number] 07/19/2010 10:00:00 Document Registration [id number] 07/06/2010 16:25:00 Document Registration [id number] 07/05/2010 15:23:00 Document Registration [id number] 06/30/2010 10:37:00 Document Registration [id number] 05/23/2010 13:59:00 Document Registration [id number] 04/11/2010 11:00:00 Document Registration [id number] 03/21/2010 07:55:00 Document Registration [id number] 03/18/2010 11:48:00 Document Registration [id number] 02/15/2010 09:54:00 Document Registration [id number] 02/06/2010 03:26:00 Document Registration [id number] 02/01/2010 11:06:00 Document Registration [id number] 01/01/2010 10:12:00 Document Registration [id number] 10/26/2009 09:34:00 Document Registration [id number] 08/18/2009 00:00:00 Document Registration
--- NOTE | 2017-07-16 09:29 | ED Psychosocial ---
General Stated Complaint: DELIRIUM Source: patient, family ( and son), EMS, old records Exam Limitations: clinical condition (acute delirium) History of Present Illness Time seen by provider: 09:12 Initial Comments Patient presents to ER by EMS with and son and toe and a chief complaint of acute hyper excitatory state delirium. EMS and son report that the patient has a history of a liver transplant and has not been very good about taking his lactulose, mag citrate, rifaximin, Prograf. He has however eating lots of proteins in salt and this is happened in the past when the patient's ammonia levels of gotten too high and his gone into a delirium state although the son says his private worst he seen. Says the past he was given Ativan which caused him to sleep for over a week. the patient is unable to give any meaningful history but is agitated and just shouting confused, nonsensical words. Prior to this patient was not complaining of any fevers, chills, cough, shortness of breath, chest pain or nausea and vomiting. EMS also reports the patient has a cut on his left elbow. He is known to a GI doctor and [place]. The plan was to go see a employment interviewer in [place] tomorrow and have routine labs drawn. Allergies and Home Medications Allergies Coded Allergies: Heparin Analogues (Verified Allergy, Mild, 07/22/15) codeine (Verified Allergy, Unknown, TAKES OXYCODONE AT HOME, 07/22/15) fentanyl (Verified Allergy, Unknown, 07/22/15) sumatriptan (Verified Allergy, Unknown, 07/22/15) zolpidem (Verified Allergy, Unknown, 07/22/15) Uncoded Allergies: NSADS (Allergy, Unknown, 04/10/14) CONTRAST DYE/RADIOLOGY DYE (Adverse Reaction, Unknown, 04/10/14) DUE TO KIDNEY FUNCTION Home Medications Budesonide/Formoterol Fumarate 10.2 Gm Hfa.aer.ad, 2 PUFF IH BID PRN for SHORTNESS OF BREATH, (Reported) Cholecalciferol (Vitamin D3) 2,000 Unit Capsule, 2,000 UNIT PO BID, (Reported) Diazepam 10 Mg Tablet, 10 MG PO HS PRN for ANXIETY, (Reported) Lactulose 10 Gm/15 Ml Solution, 45 ML PO QID PRN for HIGH AMMONIA LEVELS, ( Reported) LAST FILLED #[id number] ML 4-11-17 Magnesium Oxide 500 Mg Tablet, 500 MG PO BID, (Reported) Methylphenidate HCl 10 Mg Tablet, 10 MG PO DAILY, (Reported) Methylphenidate HCl 10 Mg Tablet, 10 MG PO TID PRN for ENERGY, (Reported) Nadolol 40 Mg Tablet, 40 MG PO HS, (Reported) Oxycodone HCl 80 Mg Tab.er.12h, 80 MG PO TID PRN for PAIN-SEVERE, (Reported) Oxycodone HCl 30 Mg Tablet, 30 MG PO Q4H PRN for PAIN-BREAKTHROUGH, (Reported) Potassium Chloride 10 Meq Tablet.er, 10 MEQ PO BID, (Reported) LAST FILLED #60 02-13-17 Rifaximin 550 Mg Tablet, 550 MG PO BID, (Reported) LAST FILLED #60 02-13-17 Sennosides/Docusate Sodium 1 Each Tablet, 2 TAB PO BID, (Reported) Tacrolimus 0.5 Mg Capsule, 0.5 MG PO BID, (Reported) LAST FILLED #90 02-13-17 Constitutional: see HPI (patient unable to give a meaningful review of systems secondary to clinical condition surgeries as well as basal and sons report) Past Ajzetrj-Alfzll-Ofjvnb Hx Patient Social History Alcohol Use: Denies Use Recreational Drug Use: No Smoking Status: Current Everyday Smoker Type Used: Cigarettes 2nd Hand Smoke Exposure: Yes Recent Hopitalizations: No Immunizations Up To Date Tetanus Booster (TDap): Less than 5yrs PED Vaccines UTD: No Date of Pneumonia Vaccine: May 09, 2015 Date of Influenza Vaccine: Jul 22, 2015 Seasonal Allergies Seasonal Allergies: No Surgeries History of Surgeries: Yes (LIVER TRANSPLANT 2004. BROKEN LEFT ARM 2011. PORT PLACEMENT. LIVER SHUNT) Respiratory History of Respiratory Disorde: Yes Respiratory Disorders: Asthma, COPD, Emphysema Currently Using CPAP: No Currently Using BIPAP: No Cardiovascular History of Cardiac Disorders: No (AORTIC ANEURYSM ) Neurological History of Neurological Disord: Yes (CAUSED FROM ANTI REJECTION MED) Reproductive System Hx Reproductive Disorders: No Sexually Transmitted Disease: No HIV/AIDS: No Genitourinary History of Genitourinary Disor: Yes Genitourinary Disorders: Renal Failure Gastrointestinal History of Gastrointestinal Di: Yes (chronic abdominal pain) Gastrointestinal Disorders: Liver Disease/Jaundice, Hepatitis, Gall Bladder Disease Musculoskeletal History of Musculoskeletal Dis: Yes ( right dislocated shoulder, broken arm age 13 & 3 years ago , siatica nerve) Musculoskeletal Disorders: Arthritis, Fractures Endocrine History of Endocrine Disorders: No HEENT History of HEENT Disorders: No Loss of Vision: Denies Hearing Impairment: Hard of Hearing Cancer History of Cancer: Yes Cancer: Liver Psychosocial History of Psychiatric Problem: Yes Behavioral Health Disorders: Anxiety, Depression Integumentary History of Skin or Integumenta: Yes (BRUISES EASY) Blood Transfusions History of Blood Disorders: No Adverse Reaction to a Blood Tr: No Family Medical History Family Medial History: Not obtainable due to adoption Physical Exam Vital Signs Vital Sign - Last 12Hours 07/16/17 09:09 Temp 98.0 Pulse 82 Resp 18 B/P (MAP) 172/115 (134) Pulse Ox 92 O2 Delivery Room Air Capillary Refill : General Appearance: moderate distress, thin HEENT: PERRL/EOMI, pharynx normal (oral mucosa is dry) Neck: non-tender, normal inspection Respiratory: normal breath sounds, no respiratory distress, no accessory muscle use Cardiovascular: normal peripheral pulses, regular rate, rhythm Peripheral Pulses: 2+ Radial Pulses (R), 2+ Radial Pulses (L) Gastrointestinal: normal bowel sounds, non tender, soft Extremities: non-tender, normal inspection, normal capillary refill Neurologic/Psychiatric: alert, other (delirious shouting) Appearance/Memory: disheveled, impaired insight, impaired recent memory, impaired remote memory Behavior/Eye Contact: belligerent, uncooperative Thoughts/Hallucinations: incoherent Skin: normal color, warm/dry Progress/Results/Core Measures Results/Orders Lab Results Laboratory Tests Test 07/16/17 09:25 07/16/17 09:53 07/16/17 10:54 Range/Units White Blood Count 5.5 4.3-11.0 10^3/uL Red Blood Count 3.43 L 4.35-5.85 10^6/uL Hemoglobin 10.7 L 13.3-17.7 G/DL Hematocrit 33 L 40-54 % Mean Corpuscular Volume 96 80-99 FL Mean Corpuscular Hemoglobin 31 25-34 PG Mean Corpuscular Hemoglobin Concent 32 32-36 G/DL Red Cell Distribution Width 15.4 H 10.0-14.5 % Platelet Count 129 L 130-400 10^3/uL Mean Platelet Volume 11.1 H 7.4-10.4 FL Neutrophils (%) (Auto) 70 42-75 % Lymphocytes (%) (Auto) 17 12-44 % Monocytes (%) (Auto) 10 0-12 % Eosinophils (%) (Auto) 3 0-10 % Basophils (%) (Auto) 1 0-10 % Neutrophils # (Auto) 3.8 1.8-7.8 X 10^3 Lymphocytes # (Auto) 0.9 L 1.0-4.0 X 10^3 Monocytes # (Auto) 0.5 0.0-1.0 X 10^3 Eosinophils # (Auto) 0.2 0.0-0.3 10^3/uL Basophils # (Auto) 0.0 0.0-0.1 10^3/uL Prothrombin Time 15.1 H 12.2-14.7 SEC INR Comment 1.2 0.8-1.4 Activated Partial Thromboplast Time 40 H 24-35 SEC Sodium Level 141 135-145 MMOL/L Potassium Level 3.8 3.6-5.0 MMOL/L Chloride Level 111 H 98-107 MMOL/L Carbon Dioxide Level 22 21-32 MMOL/L Anion Gap 8 5-14 MMOL/L Blood Urea Nitrogen 23 H 7-18 MG/DL Creatinine 1.93 H 0.60-1.30 MG/DL Estimat Glomerular Filtration Rate 36 BUN/Creatinine Ratio 12 Glucose Level 117 H 70-105 MG/DL Calcium Level 8.0 L 8.5-10.1 MG/DL Phosphorus Level 2.1 L 2.3-4.7 MG/DL Magnesium Level 1.2 L 1.8-2.4 MG/DL Total Bilirubin 1.5 H 0.1-1.0 MG/DL Aspartate Amino Transf (AST/SGOT) 152 H 5-34 U/L Alanine Aminotransferase (ALT/SGPT) 95 H 0-55 U/L Alkaline Phosphatase 348 H 40-136 U/L Total Protein 6.8 6.4-8.2 GM/DL Albumin 2.1 L 3.2-4.5 GM/DL Serum Alcohol < 10 <10 MG/DL Lactic Acid Level 1.37 0.50-2.00 MMOL/L Ammonia 155 H 11-32 UMOL/L Urine Color YELLOW Urine Clarity CLEAR Urine pH 6 5-9 Urine Specific Myra 1.010 L 1.016-1.022 Urine Protein 3+ H NEGATIVE Urine Glucose (UA) NEGATIVE NEGATIVE Urine Ketones NEGATIVE NEGATIVE Urine Nitrite NEGATIVE NEGATIVE Urine Bilirubin NEGATIVE NEGATIVE Urine Urobilinogen NORMAL NORMAL MG/DL Urine Leukocyte Esterase NEGATIVE NEGATIVE Urine RBC (Auto) 3+ H NEGATIVE Urine RBC 2-5 H /HPF Urine WBC RARE /HPF Urine Squamous Epithelial Cells 2-5 /HPF Urine Crystals NONE /LPF Urine Bacteria NEGATIVE /HPF Urine Casts NONE /LPF Urine Mucus NEGATIVE /LPF Urine Culture Indicated NO Urine Opiates Screen NEGATIVE NEGATIVE Urine Oxycodone Screen POSITIVE H NEGATIVE Urine Methadone Screen NEGATIVE NEGATIVE Urine Propoxyphene Screen NEGATIVE NEGATIVE Urine Barbiturates Screen NEGATIVE NEGATIVE Ur Tricyclic Antidepressants Screen NEGATIVE NEGATIVE Urine Phencyclidine Screen NEGATIVE NEGATIVE Urine Amphetamines Screen NEGATIVE NEGATIVE Urine Methamphetamines Screen NEGATIVE NEGATIVE Urine Benzodiazepines Screen NEGATIVE NEGATIVE Urine Cocaine Screen NEGATIVE NEGATIVE Urine Cannabinoids Screen NEGATIVE NEGATIVE Micro Results Microbiology 07/16/17 Influenza Types A,B Antigen (PAGE) - Final, Complete My Orders Orders - HELGA COREAS Haloperidol Injection (Haldol Injectio (07/16/17 09:15) Alcohol (07/16/17 09:19) Cbc With Automated Diff (07/16/17 09:19) Comprehensive Metabolic Panel (07/16/17 09:19) Drug Screen Stat (Urine) (07/16/17 09:19) Lactic Acid Analyzer (07/16/17 09:19) Magnesium (07/16/17 09:19) Protime With Inr (07/16/17 09:19) Partial Thromboplastin Time (07/16/17 09:19) Ua Culture If Indicated (07/16/17 09:19) Blood Culture (07/16/17 09:19) Influenza A And B Antigens (07/16/17 09:19) Phosphorus (07/16/17 09:19) Chest 1 View, Ap/Pa Only (07/16/17 09:19) Saline Lock/Iv-Start (07/16/17 09:19) Ns Iv 1000 Ml (Sodium Chloride 0.9%) (07/16/17 09:19) Ketamine Injection (Ketalar Injection) (07/16/17 09:45) Ketamine Injection (Ketalar Injection) (07/16/17 09:32) Ketamine Injection (Ketalar Injection) (07/16/17 09:45) Ketamine Injection (Ketalar Injection) (07/16/17 09:59) Ammonia (07/16/17 10:00) Magnesium 1 Gm/100 Ml Ivpb (Magnesium Marcelino (07/16/17 10:30) Sodium Phosphate Inj (Sodium Phosphate I (07/16/17 10:30) Ketamine Injection (Ketalar Injection) (07/16/17 10:30) Labetalol Injection (Normodyne Injection (07/16/17 10:45) Ketamine Injection (Ketalar Injection) (07/16/17 12:15) Labetalol Injection (Normodyne Injection (07/16/17 12:30) Medications Given in ED Current Medications Medications Dose Ordered Sig/Lindsay Route Start Time Stop Time Status Last Admin Dose Admin Haloperidol Lactate 5 mg ONCE ONCE IM 07/16/17 09:15 07/16/17 09:16 DC 07/16/17 09:16 5 MG Ketamine HCl 40 mg ONCE ONCE IM 07/16/17 12:15 07/16/17 12:16 DC 07/16/17 12:28 40 MG Ketamine HCl 40 mg ONCE ONCE IV 07/16/17 10:30 07/16/17 10:31 DC 07/16/17 10:29 40 MG Ketamine HCl 80 mg ONCE ONCE IM 07/16/17 09:45 07/16/17 09:46 DC 07/16/17 09:35 80 MG Labetalol HCl 20 mg ONCE ONCE IV 07/16/17 10:45 07/16/17 10:46 DC 07/16/17 11:01 20 MG Magnesium Sulfate/ Dextrose 100 ml @ 100 mls/hr ONCE ONCE IV 07/16/17 10:30 07/16/17 11:29 DC 07/16/17 10:59 100 MLS/HR Sodium Chloride 1,000 ml @ 0 mls/hr Q0M ONCE IV 07/16/17 09:19 07/16/17 09:23 DC 07/16/17 09:44 1,000 MLS/HR Sodium Phosphate 15 mm/Sodium Chloride 105 ml @ 42 mls/hr 1030 ONCE IV 07/16/17 10:30 07/16/17 12:43 DC 07/16/17 11:25 42 MLS/HR Vital Signs/I&O Vital Sign - Last 12Hours 07/16/17 07/16/17 09:09 12:35 Temp 98.0 Pulse 82 62 Resp 18 18 B/P (MAP) 172/115 (134) Pulse Ox 92 98 O2 Delivery Room Air Room Air Progress Note : Time: 09:30 Progress Note Patient has not responded to 5 mg Haldol so we'll use ketamine trying to bring his delirium and uncontrolled states that we can get blood work and start treating him. Return as soon the most likely differential is hyperammonemia and hepatic encephalopathy however been also look for evidence of infection. Diagnostic Imaging Diagonstic Imaging: Xray Plain Films/CT/US/NM/MRI: chest (1v) Comments NAME: MONICA LORD MED REC#: [id number] PHYSICIAN: HELGA COREAS MD CC: FIORDALIZA CORREIA MD; HELGA COREAS Page 1 of 1 RADIOLOGY REPORT VIA [facility], [facility]. [place], [place] CC: FIORDALIZA CORREIA MD; HELGA COREAS Page 1 of 1 RADIOLOGY REPORT NAME: MONICA LORD MED REC#: [id number] PT STATUS: DEP ER : 1955 PHYSICIAN: HELGA COREAS MD ADMIT DATE: 07/16/17/ER Signed Date of Exam: 07/16/17 CHEST 1 VIEW, AP/PA ONLY INDICATION: Confusion in patient with liver transplantation. Portable upright AP view of the chest is obtained. Comparison is made to study of 03/29/2017. FINDINGS: Heart size and pulmonary vascularity are within normal limits. There is no pneumothorax or consolidation. Right anterior chest wall port is in stable position. There is no pneumothorax or significant pleural fluid. IMPRESSION: No acute abnormality is seen in the chest. Dictated by: Dictated on workstation # [id number] Dict: 07/16/17 1022 Trans: 07/16/17 171 Interpreted by: FIORDALIZA CORREIA MD Electronically signed by: FIORDALIZA CORREIA MD 07/16/171711 Reviewed: Reviewed by Me Departure Impression Impression: Primary Impression: Acute hepatic encephalopathy Additional Impressions: Hypomagnesemia Hypophosphatemia Chronic anemia Chronic kidney disease Qualified Codes: N18.3 - Chronic kidney disease, stage 3 (moderate) Hypertensive urgency Disposition: 02 XFER SHT-TRM HOSP Condition: Stable Transfer Time Spoke to Accepting Phy: 10:53 Transfer Progress Notes [place] coordinator at [facility], [place]. Dr Mendoza, accepting physician. Transfer Time: 12:35 Transfer Facility: [facility] Method of Transfer: EMS Departure-Patient Inst. Referrals: TEREZA JAVIER MD (PCP/Family) Primary Care Physician Copy Copies To 1: LAZARUS EVERETT TITUS J Jul 16, 2017 09:29
[2017-07-16] MEDS ORDERED: KETAMINE HCL 100 MG/ML 5 ML VIAL ONE (09:32)
[2017-07-16] MEDS ORDERED: KETAMINE HCL 100 MG/ML 5 ML VIAL IV ONE ×2 (09:45→10:30)
[2017-07-16] MEDS ORDERED: KETAMINE HCL 100 MG/ML 5 ML VIAL IM ONE ×2 (09:45→12:15)
[2017-07-16 09:51] LABS: INR 1.2 (0.8-1.4); PROTHROMBIN TIME PATIENT 15.1 SEC (12.2-14.7)
[2017-07-16 09:57] LABS: BASOPHILS % (AUTO) 1 % (0-10); EOSINOPHILS # (AUTO) 0.2 10^3/uL (0.0-0.3); EOSINOPHILS % (AUTO) 3 % (0-10); HEMATOCRIT 33 % (40-54); HEMOGLOBIN 10.7 G/DL (13.3-17.7); LYMPHOCYTES # (AUTO) 0.9 X 10^3 (1.0-4.0); LYMPHOCYTES % (AUTO) 17 % (12-44); MEAN CORPUSCULAR HEMOGLOBIN 31 PG (25-34); MEAN CORPUSCULAR HGB CONC 32 G/DL (32-36); MEAN CORPUSCULAR VOLUME 96 FL (80-99); MEAN PLATELET VOLUME 11.1 FL (7.4-10.4); MONOCYTES # (AUTO) 0.5 X 10^3 (0.0-1.0); MONOCYTES % (AUTO) 10 % (0-12); NEUTROPHILS # (AUTO) 3.8 X 10^3 (1.8-7.8); NEUTROPHILS % (AUTO) 70 % (42-75); PLATELET COUNT 129 10^3/uL (130-400); RED BLOOD COUNT 3.43 10^6/uL (4.35-5.85); RED CELL DISTRIBUTION WIDTH 15.4 % (10.0-14.5); WHITE BLOOD COUNT 5.5 10^3/uL (4.3-11.0)
[2017-07-16] MEDS ORDERED: KETAMINE INJECTION 100 MG in NS (IVPB) 100 ML IV NR (09:59)
[2017-07-16 10:15] LABS: ALANINE AMINOTRANSFERASE 95 U/L (0-55); ALBUMIN 2.1 GM/DL (3.2-4.5); ALKALINE PHOSPHATASE 348 U/L (40-136); BILIRUBIN,TOTAL 1.5 MG/DL (0.1-1.0); BUN/CREATININE RATIO 12; CARBON DIOXIDE 22 MMOL/L (21-32); CHLORIDE 111 MMOL/L (98-107); CREATININE SERUM 1.93 MG/DL (0.60-1.30); GFR ESTIMATED 36; GLUCOSE 117 MG/DL (70-105); MAGNESIUM 1.2 MG/DL (1.8-2.4); PHOSPHORUS 2.1 MG/DL (2.3-4.7); POTASSIUM 3.8 MMOL/L (3.6-5.0); SODIUM 141 MMOL/L (135-145); TOTAL PROTEIN 6.8 GM/DL (6.4-8.2)
--- NOTE | 2017-07-16 10:25 | Diagnostic Imaging Report ---
INDICATION: Confusion in patient with liver transplantation. Portable upright AP view of the chest is obtained. Comparison is made to study of 03/29/2017. FINDINGS: Heart size and pulmonary vascularity are within normal limits. There is no pneumothorax or consolidation. Right anterior chest wall port is in stable position. There is no pneumothorax or significant pleural fluid. IMPRESSION: No acute abnormality is seen in the chest. Dictated by: Dictated on workstation # [id number]
[2017-07-16] MEDS ORDERED: SODIUM PHOSPHATE INJ 15 MM in NS (IVPB) 100 ML IV ONE (10:30)
[2017-07-16] MEDS ORDERED: MAGNESIUM 1 GM/100 ML IVPB 100 ML IV ONE (10:30)
[2017-07-16] MEDS ORDERED: LABETALOL HCL 20 MG/4 ML VIAL IV ONE ×2 (10:45→12:30)
[2017-07-16 11:04] LABS: BILIRUBIN,URINE NEGATIVE (NEGATIVE); CLARITY,URINE CLEAR; COLOR,URINE YELLOW; GLUCOSE, URINE (UA) NEGATIVE (NEGATIVE); KETONES,URINE NEGATIVE (NEGATIVE); LEUKOCYTE ESTERASE ,URINE NEGATIVE (NEGATIVE); NITRITE,URINE NEGATIVE (NEGATIVE); PH,URINE 6 (5-9); PROTEIN,URINE 3+ (NEGATIVE); UROBILINOGEN,URINE NORMAL (NORMAL)
[2017-07-16 11:20] LABS: BACTERIA,URINE NEGATIVE /HPF; WBC,URINE RARE /HPF
[2017-07-16 11:44] LABS: AMPHETAMINE SCREEN, URINE NEGATIVE (NEGATIVE); BARBITURATE SCREEN URINE NEGATIVE (NEGATIVE); BENZODIAZEPINES SCREEN URINE NEGATIVE (NEGATIVE); CANNABINOID SCREEN, URINE NEGATIVE (NEGATIVE); COCAINE SCREEN URINE NEGATIVE (NEGATIVE); METHADONE STAT NEGATIVE (NEGATIVE); METHAMPHETAMINE SCREEN URINE S NEGATIVE (NEGATIVE); OPIATE SCREEN URINE NEGATIVE (NEGATIVE); OXYCODONE STAT POSITIVE (NEGATIVE); PROPOXYPHENE STAT NEGATIVE (NEGATIVE); TRICYCLIC ANTIDEPRESSANTS SCRE NEGATIVE (NEGATIVE)
[2017-07-16 12:35] VITALS: BP 168/90
== END 2017-07-16 12:35 | disposition short-term general hospital (02) ==
LOC: EDUNIT# 09:09 → ER 09:11
DX: K72.90 Hepatic failure, unspecified without coma (principal); E83.42 Hypomagnesemia; E83.31 Familial hypophosphatemia; N18.9 Chronic kidney disease, unspecified; D63.8 Anemia in other chronic diseases classified elsewhere; J43.9 Emphysema, unspecified; F41.9 Anxiety disorder, unspecified; F32.9 Major depressive disorder, single episode, unspecified; F17.210 Nicotine dependence, cigarettes, uncomplicated; Z94.4 Liver transplant status; Z87.19 Personal history of other diseases of the digestive system; Z85.05 Personal history of malignant neoplasm of liver
CPT/HCPCS: 36415; 51701; 71045; 80053; 80306; 80320; 81000; 82140; 83605; 83735; 84100; 85025; 85610; 85730; 87040; 87804; 96361; 96365; 96366; 96367; 96368; 96372; 96375

== ENCOUNTER → 2017-08-01 | Outpatient (CLI) | payer MEDICAID ==
[2017-08-01 10:21] LABS: ALBUMIN 2.1 GM/DL (3.2-4.5); CALCIUM 8.5 MG/DL (8.5-10.1); CREATININE SERUM 2.54 MG/DL (0.60-1.30); POTASSIUM 4.1 MMOL/L (3.6-5.0)
== END ==
LOC: LAB 09:02
PROVIDERS: ATTEND Internal Medicine Nephrology
DX: N18.3 Chronic kidney disease, stage 3 (moderate) (principal)
CPT/HCPCS: 36415; 80069

== ENCOUNTER → 2017-08-07 | Outpatient (CLI) | payer MEDICAID ==
[2017-08-07 07:38] LABS: BASOPHILS # (AUTO) 0.1 10^3/uL (0.0-0.1); BASOPHILS % (AUTO) 1 % (0-10); EOSINOPHILS # (AUTO) 1.2 10^3/uL (0.0-0.3); EOSINOPHILS % (AUTO) 12 % (0-10); HEMATOCRIT 34 % (40-54); HEMOGLOBIN 11.6 G/DL (13.3-17.7); LYMPHOCYTES % (AUTO) 30 % (12-44); MEAN CORPUSCULAR HEMOGLOBIN 32 PG (25-34); MEAN CORPUSCULAR HGB CONC 34 G/DL (32-36); MEAN CORPUSCULAR VOLUME 92 FL (80-99); MEAN PLATELET VOLUME 10.3 FL (7.4-10.4); MONOCYTES # (AUTO) 1.5 X 10^3 (0.0-1.0); MONOCYTES % (AUTO) 15 % (0-12); NEUTROPHILS # (AUTO) 4.2 X 10^3 (1.8-7.8); NEUTROPHILS % (AUTO) 42 % (42-75); PLATELET COUNT 156 10^3/uL (130-400); RED BLOOD COUNT 3.67 10^6/uL (4.35-5.85); RED CELL DISTRIBUTION WIDTH 14.4 % (10.0-14.5)
[2017-08-07 08:04] LABS: ALBUMIN 2.1 GM/DL (3.2-4.5); CALCIUM 7.8 MG/DL (8.5-10.1); CREATININE SERUM 2.59 MG/DL (0.60-1.30); PHOSPHORUS 3.3 MG/DL (2.3-4.7); POTASSIUM 3.9 MMOL/L (3.6-5.0)
[2017-08-07 08:29] LABS: BILIRUBIN,URINE NEGATIVE (NEGATIVE); CLARITY,URINE CLEAR; COLOR,URINE YELLOW; GLUCOSE, URINE (UA) NEGATIVE (NEGATIVE); KETONES,URINE NEGATIVE (NEGATIVE); LEUKOCYTE ESTERASE ,URINE NEGATIVE (NEGATIVE); NITRITE,URINE NEGATIVE (NEGATIVE); PH,URINE 5 (5-9); PROTEIN,URINE 3+ (NEGATIVE); UROBILINOGEN,URINE NORMAL (NORMAL)
[2017-08-07 08:40] LABS: BACTERIA,URINE TRACE /HPF; RBC,URINE 0-2 /HPF
== END ==
LOC: LAB 07:10
PROVIDERS: ATTEND Internal Medicine Nephrology
DX: I12.9 Hypertensive chronic kidney disease with stage 1 through stage 4 chronic kidney disease, or unspecified chronic kidney disease (principal); N18.3 Chronic kidney disease, stage 3 (moderate); Z94.4 Liver transplant status
CPT/HCPCS: 36415; 80069; 80197; 81000; 82550; 83735; 84550; 85025; 85027

== ENCOUNTER → 2017-08-13 | Outpatient (CLI) | payer MEDICAID | LOC: LAB 08:46 | PROVIDERS: ATTEND Internal Medicine Gastroenterology | DX: K74.60 Unspecified cirrhosis of liver (principal) | CPT/HCPCS: 36415; 80197; 82140 ==

== ENCOUNTER → 2017-08-13 | Outpatient (CLI) | payer MEDICAID | LOC: LAB 08:41 | PROVIDERS: ATTEND Internal Medicine Nephrology | DX: I12.9 Hypertensive chronic kidney disease with stage 1 through stage 4 chronic kidney disease, or unspecified chronic kidney disease (principal); N18.3 Chronic kidney disease, stage 3 (moderate); R60.9 Edema, unspecified; Z94.4 Liver transplant status ==

== ENCOUNTER → 2017-10-15 | Outpatient (CLI) | payer MEDICAID ==
[2017-10-15 13:28] LABS: BASOPHILS % (AUTO) 0 % (0-10); EOSINOPHILS # (AUTO) 0.9 10^3/uL (0.0-0.3); EOSINOPHILS % (AUTO) 10 % (0-10); HEMATOCRIT 32 % (40-54); HEMOGLOBIN 10.8 G/DL (13.3-17.7); LYMPHOCYTES # (AUTO) 1.8 X 10^3 (1.0-4.0); LYMPHOCYTES % (AUTO) 19 % (12-44); MEAN CORPUSCULAR HEMOGLOBIN 32 PG (25-34); MEAN CORPUSCULAR HGB CONC 34 G/DL (32-36); MEAN CORPUSCULAR VOLUME 95 FL (80-99); MEAN PLATELET VOLUME 11.2 FL (7.4-10.4); MONOCYTES # (AUTO) 1.6 X 10^3 (0.0-1.0); MONOCYTES % (AUTO) 17 % (0-12); NEUTROPHILS # (AUTO) 5.2 X 10^3 (1.8-7.8); NEUTROPHILS % (AUTO) 54 % (42-75); PLATELET COUNT 122 10^3/uL (130-400); RED BLOOD COUNT 3.36 10^6/uL (4.35-5.85); RED CELL DISTRIBUTION WIDTH 16.4 % (10.0-14.5); WHITE BLOOD COUNT 9.6 10^3/uL (4.3-11.0)
[2017-10-15 13:41] LABS: BILIRUBIN,URINE NEGATIVE (NEGATIVE); CLARITY,URINE CLEAR; COLOR,URINE YELLOW; GLUCOSE, URINE (UA) NEGATIVE (NEGATIVE); KETONES,URINE NEGATIVE (NEGATIVE); LEUKOCYTE ESTERASE ,URINE NEGATIVE (NEGATIVE); NITRITE,URINE NEGATIVE (NEGATIVE); PH,URINE 5 (5-9); PROTEIN,URINE 3+ (NEGATIVE); UROBILINOGEN,URINE NORMAL (NORMAL)
[2017-10-15 13:46] LABS: ALBUMIN 2.4 GM/DL (3.2-4.5); BILIRUBIN,DIRECT 0.4 MG/DL (0.0-0.3); BILIRUBIN,INDIRECT 0.3 MG/DL; BILIRUBIN,TOTAL 0.7 MG/DL (0.1-1.0); CALCIUM 8.2 MG/DL (8.5-10.1); CREATININE SERUM 2.56 MG/DL (0.60-1.30); MAGNESIUM 1.7 MG/DL (1.8-2.4); PHOSPHORUS 2.8 MG/DL (2.3-4.7); POTASSIUM 4.5 MMOL/L (3.6-5.0); TOTAL PROTEIN 6.6 GM/DL (6.4-8.2)
[2017-10-15 13:57] LABS: BACTERIA,URINE NEGATIVE /HPF; SQUAMOUS EPITHELIAL CELL,UR 0-2 /HPF; WBC,URINE RARE /HPF
== END ==
LOC: LAB 12:45
PROVIDERS: ATTEND Internal Medicine Nephrology
DX: I12.9 Hypertensive chronic kidney disease with stage 1 through stage 4 chronic kidney disease, or unspecified chronic kidney disease (principal); N18.3 Chronic kidney disease, stage 3 (moderate); E83.42 Hypomagnesemia; R60.9 Edema, unspecified
CPT/HCPCS: 36415; 80069; 80076; 80197; 81000; 82550; 82570; 83735; 84156; 84550; 85025

== ENCOUNTER → 2017-10-24 | Outpatient (CLI) | payer MEDICAID ==
[~2017-10-24] MED LIST changes: -SENN-1 PO; +SENN-145 PO
[2017-10-24 10:22] LABS: BASOPHILS % (AUTO) 0 % (0-10); EOSINOPHILS # (AUTO) 0.8 10^3/uL (0.0-0.3); EOSINOPHILS % (AUTO) 9 % (0-10); HEMATOCRIT 30 % (40-54); HEMOGLOBIN 9.9 G/DL (13.3-17.7); LYMPHOCYTES # (AUTO) 2.6 X 10^3 (1.0-4.0); LYMPHOCYTES % (AUTO) 30 % (12-44); MEAN CORPUSCULAR HEMOGLOBIN 31 PG (25-34); MEAN CORPUSCULAR HGB CONC 33 G/DL (32-36); MEAN CORPUSCULAR VOLUME 95 FL (80-99); MEAN PLATELET VOLUME 11.2 FL (7.4-10.4); MONOCYTES % (AUTO) 23 % (0-12); NEUTROPHILS # (AUTO) 3.3 X 10^3 (1.8-7.8); NEUTROPHILS % (AUTO) 38 % (42-75); PLATELET COUNT 118 10^3/uL (130-400); RED BLOOD COUNT 3.18 10^6/uL (4.35-5.85); RED CELL DISTRIBUTION WIDTH 16.7 % (10.0-14.5); WHITE BLOOD COUNT 8.6 10^3/uL (4.3-11.0)
[2017-10-24 10:25] LABS: AMPHETAMINE SCREEN, URINE NEGATIVE (NEGATIVE); BARBITURATE SCREEN URINE NEGATIVE (NEGATIVE); BENZODIAZEPINES SCREEN URINE NEGATIVE (NEGATIVE); CANNABINOID SCREEN, URINE NEGATIVE (NEGATIVE); COCAINE SCREEN URINE NEGATIVE (NEGATIVE); METHADONE STAT NEGATIVE (NEGATIVE); METHAMPHETAMINE SCREEN URINE S NEGATIVE (NEGATIVE); OPIATE SCREEN URINE NEGATIVE (NEGATIVE); OXYCODONE STAT POSITIVE (NEGATIVE); PROPOXYPHENE STAT NEGATIVE (NEGATIVE); TRICYCLIC ANTIDEPRESSANTS SCRE NEGATIVE (NEGATIVE)
[2017-10-24 10:45] LABS: ALBUMIN 2.5 GM/DL (3.2-4.5); BILIRUBIN,DIRECT 0.4 MG/DL (0.0-0.3); BILIRUBIN,INDIRECT 0.3 MG/DL; BILIRUBIN,TOTAL 0.7 MG/DL (0.1-1.0); TOTAL PROTEIN 6.6 GM/DL (6.4-8.2)
[2017-10-24 11:20] LABS: ANISOCYTOSIS SLIGHT; BAND NEUTROPHILS 0 %; BASOPHILS % (MANUAL) 1 %; EOSINOPHILS % (MANUAL) 12 %; LYMPHOCYTES % (MANUAL) 28 %; MONOCYTES % (MANUAL) 10 %; NEUTROPHILS % (MANUAL) 49 %
== END ==
LOC: LAB 09:59
PROVIDERS: ATTEND Internal Medicine Gastroenterology
DX: K74.60 Unspecified cirrhosis of liver (principal); Z79.899 Other long term (current) drug therapy
CPT/HCPCS: 36415; 80076; 80306; 85007; 85027

== ENCOUNTER → 2018-01-10 | Outpatient (CLI) | payer MEDICAID ==
[2018-01-10 13:02] LABS: ALBUMIN 2.6 GM/DL (3.2-4.5); CREATININE SERUM 2.84 MG/DL (0.60-1.30); PHOSPHORUS 3.6 MG/DL (2.3-4.7)
== END ==
LOC: LAB 12:03
PROVIDERS: ATTEND Internal Medicine Nephrology
DX: N18.4 Chronic kidney disease, stage 4 (severe) (principal)
CPT/HCPCS: 36415; 80069

== ENCOUNTER → 2018-03-14 | Outpatient (CLI) | payer MEDICAID ==
[~2018-03-14] MED LIST changes: -AMLO5TAB2 PO; +AMLO5TAB7 PO
[2018-03-14 10:02] LABS: HEMOGLOBIN 11.3 G/DL (13.3-17.7); MEAN PLATELET VOLUME 11.9 FL (7.4-10.4); RED BLOOD COUNT 3.47 10^6/uL (4.35-5.85); RED CELL DISTRIBUTION WIDTH 14.2 % (10.0-14.5); WHITE BLOOD COUNT 9.8 10^3/uL (4.3-11.0)
[2018-03-14 10:24] LABS: ALBUMIN 2.9 GM/DL (3.2-4.5); BILIRUBIN,DIRECT 0.4 MG/DL (0.0-0.3); BILIRUBIN,INDIRECT 0.4 MG/DL; BILIRUBIN,TOTAL 0.8 MG/DL (0.1-1.0); CALCIUM 8.2 MG/DL (8.5-10.1); CREATININE SERUM 2.9 MG/DL (0.60-1.30); MAGNESIUM 1.6 MG/DL (1.8-2.4); PHOSPHORUS 3.1 MG/DL (2.3-4.7); URIC ACID 7.9 MG/DL (2.6-7.2)
== END ==
LOC: LAB 09:38
PROVIDERS: ATTEND Internal Medicine Nephrology
DX: I12.9 Hypertensive chronic kidney disease with stage 1 through stage 4 chronic kidney disease, or unspecified chronic kidney disease (principal); N18.4 Chronic kidney disease, stage 4 (severe); N17.9 Acute kidney failure, unspecified; R11.2 Nausea with vomiting, unspecified; E87.6 Hypokalemia; Z94.4 Liver transplant status
CPT/HCPCS: 36415; 80069; 80076; 82550; 83615; 83735; 83970; 84550; 85027

== ENCOUNTER 2018-04-15 02:31 | Emergency (ER) | payer MEDICAID ==
[~2018-04-15] VITALS: Ht 182.9 cm; Wt 74.9 kg
--- OUTSIDE RECORDS SUMMARY | 2018-04-15 02:37 | XMS REPORT ---
Author Author TEREZA JAVIER Organization [facility] Address [address] [place] [address] Care Team Providers Care Product Architect Name Role Phone TEREZA JAVIER Unavailable PROBLEMS Type Condition ICD9-CM Code PBR59-GB Code Onset Dates Condition Status SNOMED Code Problem ZOSTAVAX DX V05.8 Active 29449047 Problem Other chronic pain G89.29 Active 93007524 Problem Chronic obstructive pulmonary disease, unspecified COPD type J44.9 Active 25142459 Problem Sciatica of left side M54.32 Active 74487672 Problem History of liver transplant Z94.4 Active 788970200 Problem Reactive depression F32.9 Active 56145978 Problem Essential hypertension I10 Active 65115960 ALLERGIES No Information ENCOUNTERS Encounter Location Date Diagnosis [place] [id number] [place] [address]452- [address] 13 Mar, 2018 History of liver transplant Z94.4 [place] [id number] [place] [address] 62855- 6141 Feb, History of liver transplant Z94.4 [place] [id number] [place] [address] 80570- 8960 Jan, History of liver transplant Z94.4 [facility] [id number] [place] [address] 13348- 2070 05 Jan, 2018 Encounter for long-term opiate analgesic use Z79.891 [facility] [address] [address] Jan, [place] [id number] [place] [address] 28926- 8510 Dec, History of liver transplant Z94.4 [place] [id number] [place] [address] 02244- 4473 Dec, Other chronic pain G89.29 ; Unspecified abdominal pain R10.9 and Sciatica of left side M54.32 [facility] [id number] [place] [address] 26666- 5176 November, History of liver transplant Z94.4 [facility] [id number] [place] [address] 35475- 1556 Oct, History of liver transplant Z94.4 [facility] [id number] [place] [address] 94886- 9693 Oct, History of liver transplant Z94.4 [facility] [id number] [place] [address] 29049- 2657 Oct, Sciatica of left side M54.32 [facility] [id number] [place] [address] 99685- 2635 Sep, [facility] [id number] [place] [address] 79899- 8796 Sep, Sciatica of left side M54.32 and Flu-like symptoms R68.89 [facility] [id number] [place] [address] 03379- 0389 Sep, Sciatica of left side M54.32 [facility] [id number] [place] [address] 09037- 9024 Aug, History of liver transplant Z94.4 [facility] [address] [place] [address] 41147- 8856 Aug, Sciatica of left side M54.32 [facility] [id number] [place] [address] 83958- 8976 Jul, Generalized edema R60.1 [facility] [id number] [place] [address] 02983- 0074 Jun, Sciatica of left side M54.32 [facility] [address] [place] [address] Jun, Sciatica of left side M54.32 [facility] [address] 8[address]21- [address]85 May, Sciatica of left side M54.32 ; Encounter for immunization Z23 ; History of liver transplant Z94.4 and Chronic obstructive pulmonary disease, unspecified COPD type J44.9 [facility] [address] 11456- 8642 May, Sciatica of left side M54.32 [facility] [address] 94441- 4334 Apr, Sciatica of left side M54.32 [facility] [address] 31487- 3027 15 Mar, 2017 Sciatica of left side M54.32 [facility] [address] 93171- 6318 Mar, Sciatica of left side M54.32 [facility] [address] 31010- 4030 Feb, Sciatica of left side M54.32 [facility] [id number] [place] [address] 85747- 7088 Jan, [facility] [address] 16[address]- 1854 Jan, Essential hypertension I10 and Reactive depression F32.9 [facility] [id number] [place] [address] 18738- 4482 Jan, Sciatica of left side M54.32 [facility] [address] [address]- [address] Jan, [facility] [id number] [place] [address] 46044- 8050 Dec, [facility] [address] 13464- 2546 Dec, Sciatica of left side M54.32 [facility] [address] [place] [address] November, Sciatica of left side M54.32 [facility] [address] [place] [address]- 2546 Oct, Sciatica of left side M54.32 [facility] [id number] [place] [address], [place] [address]- [address] Sep, [facility] [address] [place] [address], [place] [address]- 2546 Sep, Sciatica of left side M54.32 [facility] [id number] [place] [address]- [address]46 Sep, Sciatica of left side M54.32 [facility] [id number] [place] [address], [place] [address]- 2546 Sep, Sciatica of left side M54.32 [facility] [address] [place] [address]- 2546 Aug, Sciatica of left side M54.32 [facility] [address] [place] [address]- [address] Aug, [facility] [address] [place] [address]- 2546 Jun, Sciatica of left side M54.32 [facility] [address] [place] [address]- [address]46 Jun, [facility] [address] [place] [address]- [address]46 Jun, [facility] [address] [place] [address]- [address]46 May, [facility] [address] [place] [address]- [address] May, [facility] [address] [address] Apr, [facility] [address] [address] Apr, Sciatica of left side M54.32 [facility] [address] [address] 2546 Mar, [facility] [id number] [place] [address]70 2546 Feb, [facility] [address] [address]- [address] Jan, [place] [id number] [place] [address] 06536- 0286 Jan, Sciatica of left side M54.32 [place] [address] [address] Dec, History of liver transplant Z94.4 and Sciatica of left side M54.32 [place] [address] [address] Oct, IMMUNIZATIONS No Known Immunizations SOCIAL HISTORY Never Assessed REASON FOR VISIT Controlled Med Refill 03/22 PLAN OF CARE VITAL SIGNS MEDICATIONS Medication Instructions Dosage Frequency Start Date End Date Duration Status Methylphenidate HCl 20 MG Orally Twice a day 1 tablet on an empty stomach 12h Aug, Active Oxycodone HCl 30 MG Orally every 4 hrs 1 tablet 4h Mar, 28 days Active OxyContin 80 MG Orally 3 times a day 1 tablet 8h Mar, 28 days Active RESULTS No Results PROCEDURES No Known procedures INSTRUCTIONS MEDICATIONS ADMINISTERED No Known Medications MEDICAL (GENERAL) HISTORY Type Description Date Medical History cirrhosis of liver Medical History liver transplant Surgical History liver transplant Surgical History kidney biopsy Hospitalization History liver transplant Hospitalization History [facility] Jul 2017
--- OUTSIDE RECORDS SUMMARY | 2018-04-15 02:37 | XMS REPORT | Clinical Summary ---
Author Author [facility] Organization [facility] Address Unknown Phone Unavailable Care Team Providers Care Financial Services Assistant Name Role Phone Max Anne MD PCP Unavailable Shaun Centeno MD Unavailable Flash Ruggiero RN Unavailable Unavailable Barb Luther Unavailable Unavailable Dennise Yao Unavailable Unavailable Marlen Bowling MA Unavailable Unavailable Source Comments Some departments are not documenting in the electronic medical record. If you do not see the information that you expected, contact Release of Information in the Health Information Management department at [phone] for further assistance in locating additional records.[facility] Allergies Active Allergy Reactions Severity Noted Date Comments Codeine NAUSEA ONLY, ITCHING, SEE Medium 12/16/2003 Ringing in ears COMMENTS Fentanyl SEE COMMENTS High 03/06/2005 Restlessness, sleep loss, Hyperactivity Heparin Analogues NAUSEA ONLY Medium 12/18/2003 Sumatriptan SEE COMMENTS High 03/06/2005 Hypertension, Headache Current Medications Prescription Sig. Disp. [...] Cap by mouth Every 30 Cap 0 04/23/20 Active 4 Hours as needed. 1-2 10 tablets as needed for pain Active Problems Not on file Encounters Date Type Specialty Care Team Description 02/05/2018 Telephone Transplant Surgery Beck Wong RN Other from Last 3 Months Social History Tobacco Use Types Packs/Day Years [...] PHYSICAL (COMPREHENSIVE) 10/10/1963 EXAM PERTUSSIS VACCINE 10/10/1967 HIV SCREENING 10/10/1971 TETANUS VACCINE 1973 COLORECTAL CANCER 2006 SCREENING SHINGLES RECOMBINANT 2006 VACCINE (1 of 2) INFLUENZA VACCINE 02/06/2018 HEPATITIS C SCREENING Completed 03/16/2004 Procedures Procedure Name Priority Date/Time Associated Diagnosis Comments TACROLIMUS LEVEL(FK506) Routine 01/23/2018 History of liver Results for this 2:41 PM CDT transplant (HCC) procedure are in the Encounter for long-term results section. (current) use of high-risk medication from Last 3 Months Results * TACROLIMUS LEVEL(FK506) (01/23/2018 2:41 PM) Tacrolimus 3.4 (L) 5 - 20 [facility] Specimen Blood Narrative Performed At [facility] Outside Lab Verified by Shea Blankenship on 01/25/2018. Performing Organization Address City/State/Zipcode Phone Number [facility] from Last 3 Months
--- OUTSIDE RECORDS SUMMARY | 2018-04-15 02:37 | XMS REPORT ---
Author Author TEREZA JAVIER Organization [facility] Address [address] [place] [address] Care Team Providers Care Director External Communications Name Role Phone TEREZA JAVIER Unavailable PROBLEMS Type Condition ICD9-CM Code CLA25-HL Code Onset Dates Condition Status SNOMED Code Problem ZOSTAVAX DX V05.8 Active 73129312 Problem Other chronic pain G89.29 Active 53903242 Problem Chronic obstructive pulmonary disease, unspecified COPD type J44.9 Active 13036390 Problem Sciatica of left side M54.32 Active 18720511 Problem History of liver transplant Z94.4 Active 046652055 Problem Reactive depression F32.9 Active 08053814 Problem Essential hypertension I10 Active 55960796 ALLERGIES No Information ENCOUNTERS Encounter Location Date Diagnosis [place] [id number] [place] [address] 84951- 1364 Feb, History of liver transplant Z94.4 [place] [id number] [place] [address] 24127- 9188 Jan, History of liver transplant Z94.4 [place] [id number] [place] [address] 28341- 4439 Jan, Encounter for long-term opiate analgesic use Z79.891 [place] [id number] [place] [address] 27715- 5700 Jan, [place] [id number] [place] [address] 65935- 1650 Dec, History of liver transplant Z94.4 [place] [address] [place] [address] 46118- 1468 Dec, Other chronic pain G89.29 ; Unspecified abdominal pain R10.9 and Sciatica of left side M54.32 [facility] [address] [address] November, History of liver transplant Z94.4 [facility] [id number] [place] [address] 35257 2546 Oct, History of liver transplant Z94.4 [facility] [address] [address] 2546 Oct, History of liver transplant Z94.4 [facility] [id number] [address] 2546 Oct, Sciatica of left side M54.32 [facility] [id number] [place] [address] 67842 2546 Sep, [facility] [id number] [place] [address] 71447 2546 Sep, Sciatica of left side M54.32 and Flu-like symptoms R68.89 [facility] [address] [place] [address] 24469 2546 Sep, Sciatica of left side M54.32 [facility] [address] [place] [address] 08696- 4436 Aug, History of liver transplant Z94.4 [facility] [address] [address] 2546 Aug, Sciatica of left side M54.32 [facility] [address] [address] 2546 Jul, Generalized edema R60.1 [facility] [id number] [place] [address] 25940 2546 Jun, Sciatica of left side M54.32 [facility] [address] [address] 2546 Jun, Sciatica of left side M54.32 [facility] [address] [place] [address] May, Sciatica of left side M54.32 ; Encounter for immunization Z23 ; History of liver transplant Z94.4 and Chronic obstructive pulmonary disease, unspecified COPD type J44.9 [facility] [id number] [place] [address] 75273- 2546 May, Sciatica of left side M54.32 [facility] [id number] [place] [address] 25357- 9708 Apr, Sciatica of left side M54.32 [facility] [id number] [place] [address] 15298- 4796 15 Mar, 2017 Sciatica of left side M54.32 [facility] [id number] [place] [address] 29304- 3890 07 Mar, 2017 Sciatica of left side M54.32 [facility] [id number] [place] [address] 81647- 4742 Feb, Sciatica of left side M54.32 [facility] [id number] [place] [address] 16978- 8474 Jan, [facility] [id number] [place] [address] 16636- 4239 Jan, Essential hypertension I10 and Reactive depression F32.9 [facility] [id number] [place] [address] 39884- 6415 Jan, Sciatica of left side M54.32 [facility] [id number] [place] [address] 69741- 8227 Jan, [facility] [id number] [place] [address] 42802- 9942 Dec, [facility] [id number] [place] [address] 75105- 2549 Dec, Sciatica of left side M54.32 [facility] [id number] [place] [address] [place] [address] 2546 November, Sciatica of left side M54.32 [facility] [address] [address]- 2546 Oct, Sciatica of left side M54.32 [facility] [address] [address]- 2546 Sep, [facility] [id number] [place] [address], [place] [address]- 2546 Sep, Sciatica of left side M54.32 [facility] [address] [address]- 2546 Sep, Sciatica of left side M54.32 [facility] [id number] [address]- 2546 Sep, Sciatica of left side M54.32 [facility] [id number] [address]- 2546 Aug, Sciatica of left side M54.32 [facility] [address] [address]- 2546 Aug, [facility] [address] [address] 2546 Jun, Sciatica of left side M54.32 [facility] [address] [address]- 2546 Jun, [facility] [address] [address]- 2546 Jun, [facility] [address] [address]- 2546 May, [facility] [address] [address]- 2546 May, [facility] [address] [address]- 2546 Apr, [facility] [id number] [address]- 0695 Apr, Sciatica of left side M54.32 [facility] [address] [address]- 5456 Mar, [facility] [address] [address] 68[address] Feb, [place] [address] [address]- 7806 Jan, [place] [address] [address] Jan, Sciatica of left side M54.32 [place] [address] [address] Dec, History of liver transplant Z94.4 and Sciatica of left side M54.32 [place] [address] [address]15 Oct, IMMUNIZATIONS No Known Immunizations SOCIAL HISTORY Never Assessed REASON FOR VISIT Oxycodone and Oxycontin Due 01/25 PLAN OF CARE VITAL SIGNS MEDICATIONS Medication Instructions Dosage Frequency Start Date End Date Duration Status OxyContin 80 MG Orally 3 times a day 1 tablet 8h Jan, 28 days Active Oxycodone HCl 30 MG Orally every 4 hrs 1 tablet 4h Jan, 28 days Active RESULTS No Results PROCEDURES No Known procedures INSTRUCTIONS MEDICATIONS ADMINISTERED No Known Medications MEDICAL (GENERAL) HISTORY Type Description Date Medical History cirrhosis of liver Medical History liver transplant Surgical History liver transplant Surgical History kidney biopsy Hospitalization History liver transplant Hospitalization History Bob Jul 2017
--- OUTSIDE RECORDS SUMMARY | 2018-04-15 02:37 | XMS REPORT | Encounter Summary ---
Author Author [facility] Organization [facility] Address Unknown Phone Unavailable Care Team Providers Care Management Liaison Name Role Phone Max Anne MD PCP Unavailable Shaun Centeno MD Unavailable Flash Ruggiero RN Unavailable Unavailable Barb Luther Unavailable Unavailable Dennise Yao Unavailable Unavailable Marlen Bowling MA Unavailable Unavailable Reason for Visit * Reason Comments Other Encounter Details Date Type Department Care Team Description 02/05/2018 Telephone Center for Beck Wong RN Other Transplantation-Liver Transplant [facility] [address] [place] [address] Social History Tobacco Use Types Packs/Day Years Used Date Former Smoker Cigarettes 1 20 Alcohol Use Drinks/Week oz/Week Comments No Sex Assigned at Date Recorded Not on file as of this encounter Miscellaneous Notes * Telephone Encounter - Beck Wong RN - 02/06/2018 1:50 PM CDT NC received a call from the patient. Claiming he has gone deaf. Patient states "I think I am going deaf and Dr. Edward said it was your fault because my immunosuppression dose is too high." RI informed the patient that our office has been able to contact for over 2 years now. Prior to the patients October 2017 we had not received labs since October 2015. Furthermore our office has not been able to fill his tacrolimus or manage his levels since we have not received labs or would know to send a prescription for the patients medication. NC asked the patient who has been filling his tacrolimus and adjusting the dosage. Patient informed the NC that Dr. Edward has been managing it. RI explained to the patient that there are multiple things that could be causing him to go deaf but our office would be unable to help the patient with this issue if we can not contact the patient or be able to assess the patient at least annually. Patient V/U NEDA informed the patient that once we see the patient in an office visit. We could possibly send a referral to a doctor that can help with the patients hearing loss. Myrat V/U NEDA informed the patient that if he would like to be seen by someone in our office we would be more than happy to get the patient scheduled for an appointment. Patient politely confirmed he would like to get an appointment and our office can just mail him an appointment date and time and he will show up. NEDA also explained the importance of good communication between the patient and our office. Patient V/ U and confirmed he would participate more in his care. in this encounter Plan of Treatment Not on fileas of this encounter Visit Diagnoses Not on filein this encounter
--- OUTSIDE RECORDS SUMMARY | 2018-04-15 02:37 | XMS REPORT ---
Author Author TEREZA JAVIER Organization [facility] Address [address] [place] [address] Care Team Providers Care Senior Account Executive Name Role Phone TEREZA JAVIER Unavailable PROBLEMS Type Condition ICD9-CM Code CMM13-ME Code Onset Dates Condition Status SNOMED Code Problem ZOSTAVAX DX V05.8 Active 55266005 Problem Other chronic pain G89.29 Active 71694492 Problem Chronic obstructive pulmonary disease, unspecified COPD type J44.9 Active 82878234 Problem Sciatica of left side M54.32 Active 81277729 Problem History of liver transplant Z94.4 Active 659185953 Problem Reactive depression F32.9 Active 39832736 Problem Essential hypertension I10 Active 31901059 ALLERGIES No Information ENCOUNTERS Encounter Location Date Diagnosis [place] [id number] [place] [address] 82319- 4218 13 Mar, 2018 History of liver transplant Z94.4 [place] [id number] [place] [address] 19355- 4377 Feb, History of liver transplant Z94.4 [place] [id number] [place] [address] 98492- 8801 Jan, History of liver transplant Z94.4 [facility] [id number] [place] [address] 69034- 8992 05 Jan, 2018 Encounter for long-term opiate analgesic use Z79.891 [facility] [address] [address]- 3728 02 Jan, 2018 [place] [id number] [place] [address] 47239- 3084 Dec, History of liver transplant Z94.4 [place] [id number] [place] [address] 52818- 3377 Dec, Other chronic pain G89.29 ; Unspecified abdominal pain R10.9 and Sciatica of left side M54.32 [facility] [id number] [place] [address] 03129- 3896 November, History of liver transplant Z94.4 [facility] [id number] [place] [address] 07990- 9676 Oct, History of liver transplant Z94.4 [facility] [id number] [place] [address] 76721- 0701 Oct, History of liver transplant Z94.4 [facility] [id number] [place] [address] 50470- 0176 Oct, Sciatica of left side M54.32 [facility] [id number] [place] [address] 77186- 2252 Sep, [facility] [id number] [place] [address] 72890- 4954 Sep, Sciatica of left side M54.32 and Flu-like symptoms R68.89 [facility] [id number] [place] [address] 04789- 8467 Sep, Sciatica of left side M54.32 [facility] [id number] [place] [address] 92255- 1014 Aug, History of liver transplant Z94.4 [facility] [address] [place] [address] 30309- 2866 Aug, Sciatica of left side M54.32 [facility] [id number] [place] [address] 96992- 8216 Jul, Generalized edema R60.1 [facility] [id number] [place] [address] 08366- 3106 Jun, Sciatica of left side M54.32 [facility] [address] [place] [address]- 5977 Jun, Sciatica of left side M54.32 [facility] [address] 05395- 5893 May, Sciatica of left side M54.32 ; Encounter for immunization Z23 ; History of liver transplant Z94.4 and Chronic obstructive pulmonary disease, unspecified COPD type J44.9 [facility] [address] 93664- 7154 May, Sciatica of left side M54.32 [facility] [address] 13901- 9746 Apr, Sciatica of left side M54.32 [facility] [address] 35540- 5481 15 Mar, 2017 Sciatica of left side M54.32 [facility] [address] 74921- 0775 Mar, Sciatica of left side M54.32 [facility] [address] 03300- 2599 Feb, Sciatica of left side M54.32 [facility] [id number] [place] [address] 55684- 0631 Jan, [facility] [address] 14004- 9568 Jan, Essential hypertension I10 and Reactive depression F32.9 [facility] [id number] [place] [address] 75933- 8006 Jan, Sciatica of left side M54.32 [facility] [address] 35218- 3039 Jan, [facility] [id number] [place] [address] 99310- 9989 Dec, [facility] [address] 87094- 2546 Dec, Sciatica of left side M54.32 [facility] [address] [place] [address]- 2546 November, Sciatica of left side M54.32 [facility] [address] [place] [address]- 2546 Oct, Sciatica of left side M54.32 [facility] [id number] [place] [address], [place] [address]- 2546 Sep, [facility] [address] [place] [address], [place] [address]- 2546 Sep, Sciatica of left side M54.32 [facility] [address] [place] [address]- 2546 Sep, Sciatica of left side M54.32 [facility] [id number] [place] [address], [place] [address]- 2546 Sep, Sciatica of left side M54.32 [facility] [address] [place] [address]- 2546 Aug, Sciatica of left side M54.32 [facility] [address] [place] [address]- 2546 Aug, [facility] [address] [place] [address]- 2546 Jun, Sciatica of left side M54.32 [facility] [address] [place] [address]- 2546 Jun, [facility] [address] [place] [address]- 2546 Jun, [facility] [address] [place] [address]- 2546 May, [facility] [address] [place] [address]- 2546 May, [facility] [address], [place] [address]- 0318 Apr, [facility] [address], [place] [address]- 3406 Apr, Sciatica of left side M54.32 [facility] [address] [place] [address] 2546 Mar, [facility] [id number] [place] [address] 53056 2546 Feb, [facility] [address] [place] [address] 38136- 8826 Jan, [facility] [id number] [place] [address] 89783- 9709 Jan, Sciatica of left side M54.32 [facility] [address], [place] [address]- 8732 Dec, History of liver transplant Z94.4 and Sciatica of left side M54.32 [facility] [address], [place] [address]- 5681 Oct, IMMUNIZATIONS No Known Immunizations SOCIAL HISTORY Never Assessed REASON FOR VISIT Controlled Med Refill 02/22 PLAN OF CARE VITAL SIGNS MEDICATIONS Medication Instructions Dosage Frequency Start Date End Date Duration Status Oxycodone HCl 30 MG Orally every 4 hrs 1 tablet 4h Feb, 28 days Active OxyContin 80 MG Orally 3 times a day 1 tablet 8h Feb, 28 days Active RESULTS No Results PROCEDURES No Known procedures INSTRUCTIONS MEDICATIONS ADMINISTERED No Known Medications MEDICAL (GENERAL) HISTORY Type Description Date Medical History cirrhosis of liver Medical History liver transplant Surgical History liver transplant Surgical History kidney biopsy Hospitalization History liver transplant Hospitalization History Bob Jul 2017
--- OUTSIDE RECORDS SUMMARY | 2018-04-15 02:37 | XMS REPORT | Clinical Summary ---
Author Author [facility] Organization [facility] Address Unknown Phone Unavailable Care Team Providers Care Business Services Director Name Role Phone PCP Unavailable Allergies Not on File Current Medications Not on file Active Problems Not on file Social History Tobacco Use Types Packs/Day Years Used Date Never Assessed Sex Assigned at Date Recorded Not on file Last Filed Vital Signs Not on file Plan of Treatment Not on file Results Not on filefrom Last 3 Months
--- OUTSIDE RECORDS SUMMARY | 2018-04-15 02:38 | XMS REPORT ---
Author Author TEREZA JAVIER Organization [facility] Address [address] [place] [address] Care Team Providers Care Smokehouse Operator Name Role Phone TEREZA JAVIER Unavailable PROBLEMS Type Condition ICD9-CM Code FCW35-LN Code Onset Dates Condition Status SNOMED Code Problem ZOSTAVAX DX V05.8 Active 24654390 Problem Other chronic pain G89.29 Active 07682931 Problem Chronic obstructive pulmonary disease, unspecified COPD type J44.9 Active 25965317 Problem Sciatica of left side M54.32 Active 90090066 Problem History of liver transplant Z94.4 Active 645525602 Problem Reactive depression F32.9 Active 00527570 Problem Essential hypertension I10 Active 15489534 ALLERGIES No Information ENCOUNTERS Encounter Location Date Diagnosis [place] [id number] [place] [address] 15268- 0439 Feb, History of liver transplant Z94.4 [place] [id number] [place] [address] 81803- 0231 Jan, History of liver transplant Z94.4 [place] [id number] [place] [address] 67273- 3791 Jan, Encounter for long-term opiate analgesic use Z79.891 [place] [id number] [place] [address] 01900- 0638 Jan, [place] [id number] [place] [address] 60747- 8210 Dec, History of liver transplant Z94.4 [place] [id number] [place] [address] 02499- 1538 Dec, Other chronic pain G89.29 ; Unspecified abdominal pain R10.9 and Sciatica of left side M54.32 [facility] [address] [address] November, History of liver transplant Z94.4 [facility] [id number] [place] [address] 79812 2546 Oct, History of liver transplant Z94.4 [facility] [address] [address] 2546 Oct, History of liver transplant Z94.4 [facility] [id number] [place] [address] 2546 Oct, Sciatica of left side M54.32 [facility] [id number] [place] [address] 01097 2546 Sep, [facility] [id number] [place] [address] 77469 2546 Sep, Sciatica of left side M54.32 and Flu-like symptoms R68.89 [facility] [id number] [place] [address] 10978 2546 Sep, Sciatica of left side M54.32 [facility] [id number] [place] [address] 54609- 2036 Aug, History of liver transplant Z94.4 [facility] [id number] [address] 2546 Aug, Sciatica of left side M54.32 [facility] [address] [address] 2546 Jul, Generalized edema R60.1 [facility] [id number] [place] [address] 80885 2546 Jun, Sciatica of left side M54.32 [facility] [address] [address] 2546 Jun, Sciatica of left side M54.32 [facility] [address] [place] [address] May, Encounter for immunization Z23 ; Sciatica of left side M54.32 ; History of liver transplant Z94.4 and Chronic obstructive pulmonary disease, unspecified COPD type J44.9 [facility] [id number] [place] [address] 10006- 2804 May, Sciatica of left side M54.32 [facility] [id number] [place] [address] 88368- 3825 Apr, Sciatica of left side M54.32 [facility] [id number] [place] [address] 85723- 5416 15 Mar, 2017 Sciatica of left side M54.32 [facility] [id number] [place] [address] 00649- 9130 07 Mar, 2017 Sciatica of left side M54.32 [facility] [id number] [place] [address] 67362- 1160 Feb, Sciatica of left side M54.32 [facility] [id number] [place] [address] 24619- 9010 Jan, [facility] [id number] [place] [address] 28532- 4921 Jan, Essential hypertension I10 and Reactive depression F32.9 [facility] [id number] [place] [address] 70291- 1228 Jan, Sciatica of left side M54.32 [facility] [id number] [place] [address] 05691- 5174 Jan, [facility] [id number] [place] [address] 54182- 4036 Dec, [facility] [id number] [place] [address] 77846- 6273 Dec, Sciatica of left side M54.32 [facility] [id number] [place] [address] [place] [address] 2546 November, Sciatica of left side M54.32 [facility] [id number] [place] [address]- 2546 Oct, Sciatica of left side M54.32 [facility] [id number] [place] [address]- 2546 Sep, [facility] [id number] [place] [address], [place] [address]- 2546 Sep, Sciatica of left side M54.32 [facility] [id number] [place] [address]- 2546 Sep, Sciatica of left side M54.32 [facility] [id number] [place] [address]- 2546 Sep, Sciatica of left side M54.32 [facility] [id number] [place] [address]- 2546 Aug, Sciatica of left side M54.32 [facility] [id number] [place] [address]- 2546 Aug, [facility] [id number] [place] [address] 2546 Jun, Sciatica of left side M54.32 [facility] [id number] [place] [address]- 2546 Jun, [facility] [id number] [address]- 2546 Jun, [facility] [id number] [place] [address]- 2546 May, [facility] [id number] [place] [address]- 2546 May, [facility] [id number] [address]- 2546 Apr, [facility] [id number] [address]- 7611 Apr, Sciatica of left side M54.32 [facility] [id number] [address]- 8206 Mar, [facility] [id number] [address]- 5432 Feb, [place] [id number] [address]- 2927 Jan, [place] [address] [address]- 5810 Jan, Sciatica of left side M54.32 [place] [address] [address]- 1178 Dec, History of liver transplant Z94.4 and Sciatica of left side M54.32 [place] [id number] [address] 7607 Oct, IMMUNIZATIONS No Known Immunizations SOCIAL HISTORY Never Assessed REASON FOR VISIT Oxycodone and Oxycontin due 11/30 PLAN OF CARE VITAL SIGNS MEDICATIONS Medication Instructions Dosage Frequency Start Date End Date Duration Status Oxycodone HCl 30 MG Orally every 4 hrs 1 tablet 4h November, 28 days Active OxyContin 80 MG Orally 3 times a day 1 tablet 8h November, 28 days Active RESULTS No Results PROCEDURES No Known procedures INSTRUCTIONS MEDICATIONS ADMINISTERED No Known Medications MEDICAL (GENERAL) HISTORY Type Description Date Medical History cirrhosis of liver Medical History liver transplant Surgical History liver transplant Surgical History kidney biopsy Hospitalization History liver transplant Hospitalization History Bob Jul 2017
--- OUTSIDE RECORDS SUMMARY | 2018-04-15 02:38 | XMS REPORT ---
Author Author TEREZA JAVIER Organization [facility] Address [address] [place] [address] Care Team Providers Care Bridge Attacher Name Role Phone TEREZA JAVIER Unavailable PROBLEMS Type Condition ICD9-CM Code EHG96-MN Code Onset Dates Condition Status SNOMED Code Problem ZOSTAVAX DX V05.8 Active 55573803 Problem Other chronic pain G89.29 Active 25010383 Problem Chronic obstructive pulmonary disease, unspecified COPD type J44.9 Active 16503961 Problem Sciatica of left side M54.32 Active 86779427 Problem History of liver transplant Z94.4 Active 331515337 Problem Reactive depression F32.9 Active 72132268 Problem Essential hypertension I10 Active 89317055 ALLERGIES No Known Allergies ENCOUNTERS Encounter Location Date Diagnosis [place] [id number] [place] [address] 87517- 9694 Jan, History of liver transplant Z94.4 [place] [id number] [place] [address] 88046- 6790 Jan, Encounter for long-term opiate analgesic use Z79.891 [place] [address] [place] [address] 92005- 8295 Jan, [place] [id number] [place] [address] 33332- 8083 Dec, History of liver transplant Z94.4 [place] [id number] [place] [address] 29212- 9197 Dec, Other chronic pain G89.29 ; Unspecified abdominal pain R10.9 and Sciatica of left side M54.32 [facility] [address] [place] [address] 29900- 8513 November, History of liver transplant Z94.4 [facility] [address], [place] [address]- 7456 Oct, History of liver transplant Z94.4 [facility] [address], [place] [address] 2546 Oct, History of liver transplant Z94.4 [facility] [address], [place] [address] 2546 Oct, Sciatica of left side M54.32 [facility] [address] [place] [address] 33045 2546 Sep, [facility] [id number] [place] [address] 46578 2546 Sep, Sciatica of left side M54.32 and Flu-like symptoms R68.89 [facility] [id number] [place] [address] 74085- 2996 Sep, Sciatica of left side M54.32 [facility] [id number] [address] Aug, History of liver transplant Z94.4 [facility] [id number] [place] [address] 50522 2546 Aug, Sciatica of left side M54.32 [facility] [address], [place] [address] 2546 Jul, Generalized edema R60.1 [facility] [address] [place] [address] 22616 2546 Jun, Sciatica of left side M54.32 [facility] [id number] [place] [address] 13101 2546 Jun, Sciatica of left side M54.32 [facility] [address], [place] [address] 2546 May, Sciatica of left side M54.32 ; Encounter for immunization Z23 ; History of liver transplant Z94.4 and Chronic obstructive pulmonary disease, unspecified COPD type J44.9 [facility] [id number] [place] [address] 49581- 2546 May, Sciatica of left side M54.32 [facility] [id number] [place] [address] 76311 2546 10 Apr, 2017 Sciatica of left side M54.32 [facility] [id number] [place] [address] 50314- 1076 15 Mar, 2017 Sciatica of left side M54.32 [facility] [id number] [place] [address] 00096- 1356 07 Mar, 2017 Sciatica of left side M54.32 [facility] [id number] [place] [address] 91728- 3346 Feb, Sciatica of left side M54.32 [facility] [id number] [place] [address] 43190- 7129 Jan, [facility] [id number] [place] [address] 69481- 1552 Jan, Essential hypertension I10 and Reactive depression F32.9 [facility] [id number] [place] [address] 53792- 4730 Jan, Sciatica of left side M54.32 [facility] [id number] [place] [address] 72652- 5034 Jan, [facility] [id number] [place] [address] 54042- 2547 Dec, [facility] [id number] [place] [address] 74670- 2544 Dec, Sciatica of left side M54.32 [facility] [id number] [place] [address] 13048- 5296 November, Sciatica of left side M54.32 [facility] [id number] [address]- 2546 Oct, Sciatica of left side M54.32 [facility] [address] [place] [address], [place] [address]- 2546 Sep, [facility] [id number] [place] [address]- 2546 Sep, Sciatica of left side M54.32 [facility] [id number] [place] [address], [place] [address]- 2546 Sep, Sciatica of left side M54.32 [facility] [address] [place] [address], [place] [address]- 2546 Sep, Sciatica of left side M54.32 [facility] [place] [id number] [place] [address]- 2546 Aug, Sciatica of left side M54.32 [facility] [address] [place] [address], [place] [address]- 2546 Aug, [facility] [id number] [place] [address]- 2546 Jun, Sciatica of left side M54.32 [facility] [id number] [place] [address]- 2546 Jun, [facility] [address], [place] [address] 2546 Jun, [facility] [address], [place] [address]- 2546 May, [facility] [id number] [place] [address]- 2546 May, [facility] [id number] [place] [address]- 2546 Apr, [facility] [id number] [place] [address]- 2546 Apr, Sciatica of left side M54.32 [facility] [id number], [place] [address]- 4603 Mar, [facility] [address], [place] [address]- 2233 Feb, [facility] [address], [place] [address]- 3296 Jan, [facility] [id number] [place] [address] 54438- 8234 Jan, Sciatica of left side M54.32 [facility] [address], [place] [address]- 8186 Dec, History of liver transplant Z94.4 and Sciatica of left side M54.32 [place] [address], [place] [address]- 0399 Oct, IMMUNIZATIONS No Known Immunizations SOCIAL HISTORY Never Assessed REASON FOR VISIT feeling sluggish, with sudden vomiting and fevers in the evening and heartburn- [place] MARY, PDM PLAN OF CARE Activity Details Follow Up prn Reason: Pending Test PDM - ATS (PROFILE 8) Pending Test PDM - AMPHETAMINES W/ REFLEX d/l ISOMERS VITAL SIGNS Height 72 in 2017-10-04 Weight 182.8 lbs 2017-10-04 Temperature 98.1 degrees Fahrenheit 2017-10-04 Heart Rate 72 bpm 2017-10-04 Respiratory Rate 18 2017-10-04 BMI 24.79 kg/m2 2017-10-04 Blood pressure systolic 148 mmHg 2017-10-04 Blood pressure diastolic 72 mmHg 2017-10-04 MEDICATIONS Medication Instructions Dosage Frequency Start Date End Date Duration Status Klor-Con 25 MEQ Orally Once a day 1 packet with food 24h Not- Taking Potassium 99 MG Orally Once a day 1 tablet 24h Active Lactulose 20 GM/30ML Orally 4 times a day 45 ml 6h Active Mirtazapine 15 mg Orally Once a day 1 tablet at bedtime 24h Jan, 30 day(s) Not-Taking Vitamin D 1000 UNIT Orally Once a day 1 tablet 24h Active Carvedilol 6.25 MG Orally 2 times a day 1 tablet 12h Active Methylphenidate HCl 20 MG Orally Twice a day 1 tablet on an empty stomach 12h Aug, Active Xifaxan 550 MG Orally Twice a day 1 tablet 12h Active Nebulizer - Active Albuterol Sulfate (5 MG/ML) 0.5% Inhalation Three times a day 0.5 ml 8h Active Symbicort 160-4.5 MCG/ACT Inhalation Twice a day 2 puffs 12h Active Prograf 0.5 MG Orally Once a day 3 capsules 24h Active Magnesium 500 MG Orally twice a day 1 tablet with a meal 12h Active Oxycodone HCl 30 MG Orally every 4 hrs 1 tablet 4h Sep, 28 days Active Zofran ODT 4 MG Orally every 4 hours as needed 1 tablet Sep, Active OxyContin 80 MG Orally 3 times a day 1 tablet 8h Sep, 28 days Active RESULTS No Results PROCEDURES Procedure Date Ordered Result Body Site DRUG TEST PRSMV CHEM ANLYZR October 04, 2017 DRUG SCREEN AMPHETAMINES 07/10October 04, 2017 INSTRUCTIONS MEDICATIONS ADMINISTERED No Known Medications MEDICAL (GENERAL) HISTORY Type Description Date Medical History cirrhosis of liver Medical History liver transplant Surgical History liver transplant Surgical History kidney biopsy Hospitalization History liver transplant Hospitalization History Bob Jul 2017
--- OUTSIDE RECORDS SUMMARY | 2018-04-15 02:38 | XMS REPORT ---
Author Author TEREZA JAVIER Organization [facility] Address [address] [place] [address] Care Team Providers Care Cloth Examiner Name Role Phone TEREZA JAVIER Unavailable PROBLEMS Type Condition ICD9-CM Code UUJ57-RN Code Onset Dates Condition Status SNOMED Code Problem ZOSTAVAX DX V05.8 Active 07036261 Problem Other chronic pain G89.29 Active 92168919 Problem Chronic obstructive pulmonary disease, unspecified COPD type J44.9 Active 80464464 Problem Sciatica of left side M54.32 Active 80591561 Problem History of liver transplant Z94.4 Active 689096253 Problem Reactive depression F32.9 Active 18696175 Problem Essential hypertension I10 Active 94626858 ALLERGIES No Information ENCOUNTERS Encounter Location Date Diagnosis [place] [id number] [place] [address] 82407- 0730 Jan, History of liver transplant Z94.4 [place] [id number] [place] [address] 03174- 4651 Jan, Encounter for long-term opiate analgesic use Z79.891 [place] [id number] [place] [address] 76608- 2480 Jan, [place] [id number] [place] [address] 89078- 0041 Dec, History of liver transplant Z94.4 [facility] [id number] [place] [address] 83099- 9643 Dec, Other chronic pain G89.29 ; Unspecified abdominal pain R10.9 and Sciatica of left side M54.32 [facility] [id number] [place] [address] 78408- 6761 November, History of liver transplant Z94.4 [facility] [address], [place] [address] 3346 Oct, History of liver transplant Z94.4 [facility] [id number] [place] [address] 42981- 3166 Oct, History of liver transplant Z94.4 [facility] [id number] [place] [address] 19935- 7076 Oct, Sciatica of left side M54.32 [facility] [id number] [place] [address] 97839- 9076 Sep, [facility] [id number] [place] [address] 52564- 0286 Sep, Sciatica of left side M54.32 and Flu-like symptoms R68.89 [facility] [id number] [place] [address] 00736- 3376 Sep, Sciatica of left side M54.32 [facility] [id number] [place] [address] 13363- 9553 Aug, History of liver transplant Z94.4 [facility] [id number] [place] [address] 91499- 5556 Aug, Sciatica of left side M54.32 [facility] [id number] [place] [address] 21425- 4926 Jul, Generalized edema R60.1 [facility] [id number] [place] [address] 74578- 6917 Jun, Sciatica of left side M54.32 [facility] [id number] [place] [address] 56587- 7426 Jun, Sciatica of left side M54.32 [facility] [address], [place] [address]- 7996 May, Encounter for immunization Z23 ; Sciatica of left side M54.32 ; History of liver transplant Z94.4 and Chronic obstructive pulmonary disease, unspecified COPD type J44.9 [facility] [id number] [place] [address] 08657- 3866 May, Sciatica of left side M54.32 [facility] [id number] [place] [address] 89760 2546 Apr, Sciatica of left side M54.32 [facility] [id number] [place] [address] 78452 2546 15 Mar, 2017 Sciatica of left side M54.32 [facility] [id number] [place] [address] 12833 2546 07 Mar, 2017 Sciatica of left side M54.32 [facility] [id number] [place] [address] 66911- 1026 Feb, Sciatica of left side M54.32 [facility] [id number] [place] [address] 98873- 9173 Jan, [facility] [id number] [place] [address] 37191- 4140 Jan, Essential hypertension I10 and Reactive depression F32.9 [facility] [id number] [place] [address] 29042- 4694 Jan, Sciatica of left side M54.32 [facility] [id number] [place] [address] 02880- 3958 Jan, [facility] [id number] [place] [address] 65571- 2546 Dec, [facility] [id number] [place] [address] 65000- 2545 Dec, Sciatica of left side M54.32 [facility] [id number] [place] [address] 76411- 2541 November, Sciatica of left side M54.32 [facility] [id number] [place] [address], [place] [address] 2546 Oct, Sciatica of left side M54.32 [facility] [id number] [address]- 2546 Sep, [facility] [address] [address]- 2546 Sep, Sciatica of left side M54.32 [facility] [address] [place] [address], [place] [address]- 2546 Sep, Sciatica of left side M54.32 [facility] [id number] [address]- 2546 Sep, Sciatica of left side M54.32 [facility] [address] [address]- 2546 Aug, Sciatica of left side M54.32 [facility] [id number] [place] [address], [place] [address]- 2546 Aug, [facility] [address] [address]- 2546 Jun, Sciatica of left side M54.32 [facility] [address] [address]- 2546 Jun, [facility] [address], [place] [address] 2546 Jun, [facility] [address], [place] [address]- 2546 May, [facility] [id number] [address]- 2546 May, [facility] [id number], [place] [address]- 2546 Apr, [facility] [id number] [address]- 2546 Apr, Sciatica of left side M54.32 [facility] [id number] 0306 Mar, [facility] [address] 9430 Feb, [facility] [address], [place] [address]- 5050 Jan, [facility] [address], [place] [address]- 4118 Jan, Sciatica of left side M54.32 [facility] [address], [place] [address]- 5573 Dec, History of liver transplant Z94.4 and Sciatica of left side M54.32 [facility] [address], [place] [address]- 0345 Oct, IMMUNIZATIONS No Known Immunizations SOCIAL HISTORY Never Assessed REASON FOR VISIT Oxycodone and Oxycontin 11/02 PLAN OF CARE VITAL SIGNS MEDICATIONS Medication Instructions Dosage Frequency Start Date End Date Duration Status Oxycodone HCl 30 MG Orally every 4 hrs 1 tablet 4h Oct, 28 days Active OxyContin 80 MG Orally 3 times a day 1 tablet 8h Oct, 28 days Active RESULTS No Results PROCEDURES No Known procedures INSTRUCTIONS MEDICATIONS ADMINISTERED No Known Medications MEDICAL (GENERAL) HISTORY Type Description Date Medical History cirrhosis of liver Medical History liver transplant Surgical History liver transplant Surgical History kidney biopsy Hospitalization History liver transplant Hospitalization History Bob Jul 2017
--- OUTSIDE RECORDS SUMMARY | 2018-04-15 02:38 | XMS REPORT ---
Author Author TEREZA JAVIER Organization [facility] Address [address] [place] [address] Care Team Providers Care Engineering Manager Name Role Phone TEREZA JAVIER Unavailable PROBLEMS Type Condition ICD9-CM Code GSX25-ON Code Onset Dates Condition Status SNOMED Code Problem ZOSTAVAX DX V05.8 Active 77773933 Problem Other chronic pain G89.29 Active 74959445 Problem Chronic obstructive pulmonary disease, unspecified COPD type J44.9 Active 10504370 Problem Sciatica of left side M54.32 Active 68041349 Problem History of liver transplant Z94.4 Active 550343836 Problem Reactive depression F32.9 Active 01342525 Problem Essential hypertension I10 Active 07634557 ALLERGIES No Information ENCOUNTERS Encounter Location Date Diagnosis [place] [id number] [place] [address] 53434- 9303 Feb, History of liver transplant Z94.4 [place] [id number] [place] [address] 89774- 7335 Jan, History of liver transplant Z94.4 [place] [id number] [place] [address] 57906- 8062 Jan, Encounter for long-term opiate analgesic use Z79.891 [place] [id number] [place] [address] 83136- 2543 Jan, [place] [id number] [place] [address] 56322- 7324 Dec, History of liver transplant Z94.4 [place] [address] [place] [address] 28110- 3343 Dec, Other chronic pain G89.29 ; Unspecified abdominal pain R10.9 and Sciatica of left side M54.32 [facility] [address], [place] [address]- 1156 November, History of liver transplant Z94.4 [facility] [id number] [place] [address] 28239 2546 Oct, History of liver transplant Z94.4 [facility] [address], [place] [address] 2546 Oct, History of liver transplant Z94.4 [facility] [id number] [place] [address] 2546 Oct, Sciatica of left side M54.32 [facility] [id number] [place] [address] 76792 2546 Sep, [facility] [id number] [place] [address] 42977 2546 Sep, Sciatica of left side M54.32 and Flu-like symptoms R68.89 [facility] [address] [place] [address] 28206 2546 Sep, Sciatica of left side M54.32 [facility] [address] [place] [address] 46218- 1576 Aug, History of liver transplant Z94.4 [facility] [address], [place] [address] 2546 Aug, Sciatica of left side M54.32 [facility] [address], [place] [address] 2546 Jul, Generalized edema R60.1 [facility] [id number] [place] [address] 07055 2546 Jun, Sciatica of left side M54.32 [facility] [address], [place] [address] 2546 Jun, Sciatica of left side M54.32 [facility] [address] [place] [address]- 2952 May, Sciatica of left side M54.32 ; Encounter for immunization Z23 ; History of liver transplant Z94.4 and Chronic obstructive pulmonary disease, unspecified COPD type J44.9 [facility] [id number] [place] [address] 01786- 2546 May, Sciatica of left side M54.32 [facility] [id number] [place] [address] 07459- 4809 Apr, Sciatica of left side M54.32 [facility] [id number] [place] [address] 52213- 8026 15 Mar, 2017 Sciatica of left side M54.32 [facility] [id number] [place] [address] 00546- 8806 07 Mar, 2017 Sciatica of left side M54.32 [facility] [id number] [place] [address] 46417- 3806 Feb, Sciatica of left side M54.32 [facility] [id number] [place] [address] 71092- 6110 Jan, [facility] [id number] [place] [address] 64780- 3660 Jan, Essential hypertension I10 and Reactive depression F32.9 [facility] [id number] [place] [address] 43684- 9277 Jan, Sciatica of left side M54.32 [facility] [id number] [place] [address] 01906- 7249 Jan, [facility] [id number] [place] [address] 94878- 3706 Dec, [facility] [id number] [place] [address] 19943- 2545 Dec, Sciatica of left side M54.32 [facility] [id number] [place] [address] [place] [address] 2546 November, Sciatica of left side M54.32 [facility] [id number] [place] [address]- 2546 Oct, Sciatica of left side M54.32 [facility] [id number] [place] [address]- 2546 Sep, [facility] [id number] [place] [address], [place] [address]- 2546 Sep, Sciatica of left side M54.32 [facility] [address] [place] [address]- 2546 Sep, Sciatica of left side M54.32 [facility] [id number] [place] [address]- 2546 Sep, Sciatica of left side M54.32 [facility] [id number] [place] [address]- 2546 Aug, Sciatica of left side M54.32 [facility] [id number] [place] [address]- 2546 Aug, [facility] [id number] [place] [address] 2546 Jun, Sciatica of left side M54.32 [facility] [id number] [place] [address]- 2546 Jun, [facility] [address], [place] [address]- 2546 Jun, [facility] [id number] [place] [address]- 2546 May, [facility] [id number] [place] [address]- 2546 May, [facility] [address], [place] [address]- 2546 Apr, [facility] [address], [place] [address]- 5388 Apr, Sciatica of left side M54.32 [facility] [address] [address]- 8573 Mar, [facility] [address] [place] [address] 30753- 7377 Feb, [facility] [id number] [place] [address] 39425- 1393 Jan, [facility] [id number] [place] [address] 91865- 3974 Jan, Sciatica of left side M54.32 [facility] [address], [place] [address]- 7990 Dec, History of liver transplant Z94.4 and Sciatica of left side M54.32 [place] [address], [place] [address]- 1590 Oct, IMMUNIZATIONS No Known Immunizations SOCIAL HISTORY Never Assessed REASON FOR VISIT Reports of narc abuse- Call PLAN OF CARE VITAL SIGNS MEDICATIONS Unknown Medications RESULTS No Results PROCEDURES No Known procedures INSTRUCTIONS MEDICATIONS ADMINISTERED No Known Medications MEDICAL (GENERAL) HISTORY Type Description Date Medical History cirrhosis of liver Medical History liver transplant Surgical History liver transplant Surgical History kidney biopsy Hospitalization History liver transplant Hospitalization History Bob Jul 2017
--- OUTSIDE RECORDS SUMMARY | 2018-04-15 02:38 | XMS REPORT ---
Author Author TEREZA JAVIER Organization [facility] Address [address] [place] [address] Care Team Providers Care Housecalls Nurse Name Role Phone TEREZA JAVIER Unavailable PROBLEMS Type Condition ICD9-CM Code HHN91-WY Code Onset Dates Condition Status SNOMED Code Problem ZOSTAVAX DX V05.8 Active 87421695 Problem Other chronic pain G89.29 Active 01455200 Problem Chronic obstructive pulmonary disease, unspecified COPD type J44.9 Active 19360251 Problem Sciatica of left side M54.32 Active 09351661 Problem History of liver transplant Z94.4 Active 998410512 Problem Reactive depression F32.9 Active 84355946 Problem Essential hypertension I10 Active 41746627 ALLERGIES Substance Reaction Event Type Date Status Codeine Phosphate itching Drug Allergy Dec, Active ENCOUNTERS Encounter Location Date Diagnosis [place] [address] [place] [address] 38552- 7174 Feb, History of liver transplant Z94.4 [place] [address] [place] [address] 78533- 8206 Jan, History of liver transplant Z94.4 [facility] [address], [place] [address] 4[address] Jan, Encounter for long-term opiate analgesic use Z79.891 [facility] [address], [place] [address] 2925 Jan, [place] [address] [place] [id number] [place] [address] 75678- 2908 Dec, History of liver transplant Z94.4 [facility] [address], [place] [address] 5243 Dec, Other chronic pain G89.29 ; Unspecified abdominal pain R10.9 and Sciatica of left side M54.32 [facility] [address] [place] [id number] [place] [address] 69937- 7166 November, History of liver transplant Z94.4 [facility] [address] [place] [id number] [place] [address] 84693 2546 Oct, History of liver transplant Z94.4 [facility] [address] [place] [id number] [place] [address] 91594 2546 Oct, History of liver transplant Z94.4 [facility] [address] [place] [id number] [place] [address] 18113- 0276 Oct, Sciatica of left side M54.32 [facility] [address] [place] [id number] [place] [address] 21723- 7056 Sep, [place] [address] [place] [id number] [place] [address] 21570- 4529 Sep, Sciatica of left side M54.32 and Flu-like symptoms R68.89 [facility] [address] [place] [id number] [place] [address] 74553- 4743 Sep, Sciatica of left side M54.32 [facility] [address] [place] [id number] [place] [address] 73195- 6707 Aug, History of liver transplant Z94.4 [facility] [address] [place] [address] 95019 2546 Aug, Sciatica of left side M54.32 [facility] [address] [place] [id number] [place] [address] 51143 2546 Jul, Generalized edema R60.1 [facility] [address] [place] [id number] [place] [address] 43100 2546 Jun, Sciatica of left side M54.32 [facility] [address] [place] [id number] [place] [address] 53976 2546 Jun, Sciatica of left side M54.32 [facility] [address] [place] [id number] [place] [address] 37843- 4527 May, Sciatica of left side M54.32 ; Encounter for immunization Z23 ; History of liver transplant Z94.4 and Chronic obstructive pulmonary disease, unspecified COPD type J44.9 [facility] [address] [place] [id number] [place] [address] 62488- 2546 May, Sciatica of left side M54.32 [facility] [address] [place] [id number] [place] [address] 19345- 5368 Apr, Sciatica of left side M54.32 [facility] [address] [address]- 3256 15 Mar, 2017 Sciatica of left side M54.32 [facility] [address] [place] [id number] [place] [address] 02361- 6436 Mar, Sciatica of left side M54.32 [facility] [address] [place] [id number] [place] [address] 83950- 2810 Feb, Sciatica of left side M54.32 [facility] [address] [place] [id number] [place] [address] 34161- 8565 Jan, [facility] [address] [place] [id number] [place] [address] 59986- 7483 Jan, Essential hypertension I10 and Reactive depression F32.9 [facility] [address] [place] [id number] [place] [address] 27507- 6791 Jan, Sciatica of left side M54.32 [facility] [address] [place] [id number] [place] [address] 81307- 9541 Jan, [facility] [address] [place] [id number] [place] [address] 55230- 5347 Dec, [facility] [address] [place] [id number] [place] [address] 80472- 5331 Dec, Sciatica of left side M54.32 [facility] [address] [place] [address]- 3226 November, Sciatica of left side M54.32 [facility] [address] [place] [id number] [place] [address]- 2546 Oct, Sciatica of left side M54.32 [facility] [address] [place] [id number] [place] [address], [place] [address]- 2546 Sep, [facility] [address] [place] [id number] [place] [address], [place] [address]- 2546 Sep, Sciatica of left side M54.32 [facility] [address] [place] [id number] [place] [address], [place] [address]- 2546 Sep, Sciatica of left side M54.32 [facility] [address] [place] [id number] [place] [address]- 2546 Sep, Sciatica of left side M54.32 [facility] [address] [place] [address] [place] [address]- 3226 Aug, Sciatica of left side M54.32 [facility] [address] [place] [address] [place] [address]- 2516 Aug, [facility] [address], [place] [address]- 2556 Jun, Sciatica of left side M54.32 [facility] [address], [place] [address]- 2546 Jun, [facility] [address], [place] [address]- 2546 Jun, [facility] [address] [place] [address] [address]- 2546 May, [facility] [address], [place] [address]- 2546 May, [facility] [address] [place] [id number] [place] [address] 98101- 2154 Apr, [place] [address] 8417 Apr, Sciatica of left side M54.32 [place] [address] 8496 Mar, [place] [address] 1744 Feb, [place] [address], [place] [address]- 7751 Jan, [place] [address] [place] [id number] [place] [address] 217114- 3398 Jan, Sciatica of left side M54.32 [place] [address], [place] [address]- 7211 Dec, History of liver transplant Z94.4 and Sciatica of left side M54.32 [place] [address] [place] [id number] [address]- 1296 Oct, IMMUNIZATIONS No Known Immunizations SOCIAL HISTORY Never Assessed REASON FOR VISIT Pain management (chronic) WB-MA, PT claims he pulled something within his right pectoral muscle, PT fears that he is going deaf and that his speech is beginning to deteriorate PLAN OF CARE Activity Details Follow Up 3 Months Reason: VITAL SIGNS Height 72 in 2017-12-11 Weight 175 lbs 2017-12-11 Temperature 99.8 degrees Fahrenheit 2017-12-11 Heart Rate 80 bpm 2017-12-11 Respiratory Rate 18 2017-12-11 BMI 23.73 kg/m2 2017-12-11 Blood pressure systolic 128 mmHg 2017-12-11 Blood pressure diastolic 84 mmHg 2017-12-11 MEDICATIONS Medication Instructions Dosage Frequency Start Date End Date Duration Status Potassium 99 MG Orally Once a day 1 tablet 24h Active Lactulose 20 GM/30ML Orally 4 times a day 45 ml 6h Active Prograf 0.5 MG Orally Once a day 3 capsules 24h Active Vitamin D 1000 UNIT Orally Once a day 1 tablet 24h Active Carvedilol 6.25 MG Orally 2 times a day 1 tablet 12h Active OxyContin 80 MG Orally 3 times a day 1 tablet 8h November, 28 days Active Xifaxan 550 MG Orally Twice a day 1 tablet 12h Active Symbicort 160-4.5 MCG/ACT Inhalation Twice a day 2 puffs 12h Active Nebulizer - Active Oxycodone HCl 30 MG Orally every 4 hrs 1 tablet 4h November, 28 days Active Magnesium 500 MG Orally twice a day 1 tablet with a meal 12h Active Methylphenidate HCl 20 MG Orally Twice a day 1 tablet on an empty stomach 12h Aug, Active Zofran ODT 4 MG Orally every 4 hours as needed 1 tablet Sep, Active RESULTS No Results PROCEDURES No Known procedures INSTRUCTIONS MEDICATIONS ADMINISTERED No Known Medications MEDICAL (GENERAL) HISTORY Type Description Date Medical History cirrhosis of liver Medical History liver transplant Surgical History liver transplant Surgical History kidney biopsy Hospitalization History liver transplant Hospitalization History [facility] Jul 2017
--- OUTSIDE RECORDS SUMMARY | 2018-04-15 02:38 | XMS REPORT ---
Author Author TEREZA JAVIER Organization [facility] [place] Address [address] [place] [address] Care Team Providers Care Pattern Wheel Maker Name Role Phone TEREZA JAVIER Unavailable PROBLEMS Type Condition ICD9-CM Code CXH42-RY Code Onset Dates Condition Status SNOMED Code Problem ZOSTAVAX DX V05.8 Active 24122414 Problem Other chronic pain G89.29 Active 13920122 Problem Chronic obstructive pulmonary disease, unspecified COPD type J44.9 Active 36757986 Problem Sciatica of left side M54.32 Active 07678310 Problem History of liver transplant Z94.4 Active 929252733 Problem Reactive depression F32.9 Active 42140799 Problem Essential hypertension I10 Active 97559735 ALLERGIES No Information ENCOUNTERS Encounter Location Date Diagnosis [place] [address] [place] [id number] [place] [address] 60150- 0460 Feb, History of liver transplant Z94.4 [place] [address] [place] [id number] [place] [address] 88867- 9203 Jan, History of liver transplant Z94.4 [place] [address] [place] [id number] [place] [address] 73496- 7016 Jan, Encounter for long-term opiate analgesic use Z79.891 [place] [address] [place] [id number] [place] [address] 76845- 9005 Jan, [place] [address] [place] [id number] [place] [address] 46222- 4955 Dec, History of liver transplant Z94.4 [place] [address] [place] [address] 91245- 5621 Dec, Other chronic pain G89.29 ; Unspecified abdominal pain R10.9 and Sciatica of left side M54.32 [facility] [place] [address], [place] [address]- 5146 November, History of liver transplant Z94.4 [facility] [place] [address] [place] [id number] [place] [address] 40735 2546 Oct, History of liver transplant Z94.4 [facility] [place] [address], [place] [address] 2546 Oct, History of liver transplant Z94.4 [facility] [place] [address] [place] [id number] [place] [address] 2546 Oct, Sciatica of left side M54.32 [facility] [place] [address] [place] [id number] [place] [address] 75942 2546 Sep, [facility] [place] [address] [place] [id number] [place] [address] 26710 2546 Sep, Sciatica of left side M54.32 and Flu-like symptoms R68.89 [facility] [place] [address] [place] [address] 95568 2546 Sep, Sciatica of left side M54.32 [facility] [place] [address] [place] [address] 63695- 6586 Aug, History of liver transplant Z94.4 [facility] [place] [address], [place] [address] 2546 Aug, Sciatica of left side M54.32 [facility] [place] [address], [place] [address] 2546 Jul, Generalized edema R60.1 [facility] [place] [address] [place] [id number] [place] [address] 41409 2546 Jun, Sciatica of left side M54.32 [facility] [place] [address], [place] [address] 2546 Jun, Sciatica of left side M54.32 [facility] [place] [address] [place] [address] [place] [address]- 0281 May, Sciatica of left side M54.32 ; Encounter for immunization Z23 ; History of liver transplant Z94.4 and Chronic obstructive pulmonary disease, unspecified COPD type J44.9 [facility] [place] [address] [place] [id number] [place] [address] 39167- 2546 May, Sciatica of left side M54.32 [facility] [place] [address] [place] [id number] [place] [address] 00629- 2717 Apr, Sciatica of left side M54.32 [facility] [place] [address] [place] [id number] [place] [address] 54160- 3846 15 Mar, 2017 Sciatica of left side M54.32 [facility] [place] [address] [place] [id number] [place] [address] 20445- 8749 07 Mar, 2017 Sciatica of left side M54.32 [facility] [place] [address] [place] [id number] [place] [address] 54719- 1008 Feb, Sciatica of left side M54.32 [facility] [place] [address] [place] [id number] [place] [address] 19301- 3782 Jan, [facility] [place] [address] [place] [id number] [place] [address] 82245- 2444 Jan, Essential hypertension I10 and Reactive depression F32.9 [facility] [place] [address] [place] [id number] [place] [address] 36267- 4502 Jan, Sciatica of left side M54.32 [facility] [place] [address] [place] [id number] [place] [address] 15481- 9442 Jan, [facility] [place] [address] [place] [id number] [place] [address] 41272- 2734 Dec, [facility] [place] [address] [place] [id number] [place] [address] 01550- 2542 Dec, Sciatica of left side M54.32 [facility] [place] [address] [place] [id number] [place] [address] [place] [address] 2546 November, Sciatica of left side M54.32 [facility] [place] [address] [place] [address]- 2546 Oct, Sciatica of left side M54.32 [facility] [place] [address] [place] [address]- 2546 Sep, [facility] [place] [address] [place] [id number] [place] [address], [place] [address]- 2546 Sep, Sciatica of left side M54.32 [facility] [place] [address] [place] [address]- 2546 Sep, Sciatica of left side M54.32 [facility] [place] [address] [place] [id number] [place] [address]- 2546 Sep, Sciatica of left side M54.32 [facility] [place] [address] [place] [id number] [place] [address]- 2546 Aug, Sciatica of left side M54.32 [facility] [place] [address] [place] [address]- 2546 Aug, [facility] [place] [address] [place] [address] 2546 Jun, Sciatica of left side M54.32 [facility] [place] [address] [place] [address]- 2546 Jun, [facility] [place] [address], [place] [address]- 2546 Jun, [facility] [place] [address] [place] [address]- 2546 May, [facility] [place] [address] [place] [address]- 2546 May, [facility] [place] [address], [place] [address]- 2546 Apr, [facility] [place] [address], [place] [address]- 9839 Apr, Sciatica of left side M54.32 [facility] [place] [address], [place] [address]- 1409 Mar, [facility] [place] [address] [place] [address] 56464- 9107 Feb, [place] [address] [place] [id number] [place] [address] 62843- 6904 Jan, [place] [address] [place] [id number] [place] [address] 03310- 2991 Jan, Sciatica of left side M54.32 [place] [address], [place] [address]- 1743 Dec, History of liver transplant Z94.4 and Sciatica of left side M54.32 [place] [address], [place] [address]- 2987 Oct, IMMUNIZATIONS No Known Immunizations SOCIAL HISTORY Never Assessed REASON FOR VISIT Lab (walk-in) PLAN OF CARE VITAL SIGNS MEDICATIONS Unknown Medications RESULTS No Results PROCEDURES Procedure Date Ordered Result Body Site LAB NOT BILLED BY [facility] January 10, 2018 INSTRUCTIONS MEDICATIONS ADMINISTERED No Known Medications MEDICAL (GENERAL) HISTORY Type Description Date Medical History cirrhosis of liver Medical History liver transplant Surgical History liver transplant Surgical History kidney biopsy Hospitalization History liver transplant Hospitalization History Bob Jul 2017
--- OUTSIDE RECORDS SUMMARY | 2018-04-15 02:39 | XMS REPORT ---
Author Author TEREZA JAVIER Organization [facility] Address [address] [place] [address] Care Team Providers Care Hospitality Ambassador Name Role Phone TEREZA JAVIER Unavailable PROBLEMS Type Condition ICD9-CM Code [id number] Code Onset Dates Condition Status SNOMED Code Problem ZOSTAVAX DX V05.8 Active 32993618 Problem Other chronic pain G89.29 Active 98132658 Problem Chronic obstructive pulmonary disease, unspecified COPD type J44.9 Active 92978611 Problem Sciatica of left side M54.32 Active 39589432 Problem History of liver transplant Z94.4 Active 663873646 Problem Reactive depression F32.9 Active 10776547 Problem Essential hypertension I10 Active 43661121 ALLERGIES No Information ENCOUNTERS Encounter Location Date Diagnosis [place] [id number] [place] [address] 04002- 1597 Jan, History of liver transplant Z94.4 [place] [id number] [place] [address] 25644- 7440 Jan, Encounter for long-term opiate analgesic use Z79.891 [place] [id number] [place] [address] 99748- 2457 Jan, [place] [id number] [place] [address] 72352- 7948 Dec, History of liver transplant Z94.4 [facility] [id number] [place] [address] 11566- 0693 Dec, Other chronic pain G89.29 ; Unspecified abdominal pain R10.9 and Sciatica of left side M54.32 [facility] [id number] [place] [address] 95911- 0952 November, History of liver transplant Z94.4 [facility] [address] [address] 3416 Oct, History of liver transplant Z94.4 [facility] [id number] [place] [address] 25943 2546 Oct, History of liver transplant Z94.4 [facility] [address] [place] [address] 80695 2546 Oct, Sciatica of left side M54.32 [facility] [id number] [place] [address] 64241 2546 Sep, [facility] [id number] [place] [address] 62663- 7976 Sep, Sciatica of left side M54.32 and Flu-like symptoms R68.89 [facility] [id number] [place] [address] 81222- 4446 Sep, Sciatica of left side M54.32 [facility] [id number] [place] [address] 83072- 4536 Aug, History of liver transplant Z94.4 [facility] [id number] [place] [address] 04710- 8496 Aug, Sciatica of left side M54.32 [facility] [id number] [place] [address] 23152- 2946 Jul, Generalized edema R60.1 [facility] [id number] [place] [address] 27400 2546 Jun, Sciatica of left side M54.32 [facility] [id number] [place] [address] 14365- 5926 Jun, Sciatica of left side M54.32 [facility] [address] [address]- 1026 May, Sciatica of left side M54.32 ; Encounter for immunization Z23 ; History of liver transplant Z94.4 and Chronic obstructive pulmonary disease, unspecified COPD type J44.9 [facility] [id number] [place] [address] 43326- 8076 May, Sciatica of left side M54.32 [facility] [id number] [place] [address] 90760 2546 Apr, Sciatica of left side M54.32 [facility] [id number] [place] [address] 86899 2546 15 Mar, 2017 Sciatica of left side M54.32 [facility] [id number] [place] [address] 10860 2546 07 Mar, 2017 Sciatica of left side M54.32 [facility] [id number] [place] [address] 35641- 2146 Feb, Sciatica of left side M54.32 [facility] [id number] [place] [address] 43130- 5812 Jan, [facility] [id number] [place] [address] 66397- 0185 Jan, Essential hypertension I10 and Reactive depression F32.9 [facility] [id number] [place] [address] 96033- 7032 Jan, Sciatica of left side M54.32 [facility] [id number] [place] [address] 64120- 4394 Jan, [facility] [id number] [place] [address] 88543- 2546 Dec, [facility] [id number] [place] [address] 75628- 254 Dec, Sciatica of left side M54.32 [facility] [id number] [place] [address] 20798- 2549 November, Sciatica of left side M54.32 [facility] [id number] [place] [address], [place] [address] 2546 Oct, Sciatica of left side M54.32 [facility] [id number] [place] [address]- 2546 Sep, [facility] [id number] [place] [address]- 2546 Sep, Sciatica of left side M54.32 [facility] [id number] [place] [address], [place] [address]- 2546 Sep, Sciatica of left side M54.32 [facility] [id number] [place] [address]- 2546 Sep, Sciatica of left side M54.32 [facility] [address] [place] [address]- 2546 Aug, Sciatica of left side M54.32 [facility] [id number] [place] [address], [place] [address]- 2546 Aug, [facility] [id number] [place] [address]- 2546 Jun, Sciatica of left side M54.32 [facility] [id number] [place] [address]- 2546 Jun, [facility] [address] [address] 2546 Jun, [facility] [id number] [address]- 2546 May, [facility] [id number] [place] [address]- 2546 May, [facility] [id number] [address]- 2546 Apr, [facility] [id number] [address]- 2546 Apr, Sciatica of left side M54.32 [facility] [id number] [address]- 7307 Mar, [facility] [address] [address]- 1221 Feb, [facility] [address] [address]- 1307 Jan, [facility] [id number] [place] [address] 63355- 3655 Jan, Sciatica of left side M54.32 [facility] [address] [address]- 8532 Dec, History of liver transplant Z94.4 and Sciatica of left side M54.32 [facility] [address] [address]- 2504 Oct, IMMUNIZATIONS No Known Immunizations SOCIAL HISTORY Never Assessed REASON FOR VISIT Lab (walk-in)--[facility] PLAN OF CARE VITAL SIGNS MEDICATIONS Unknown Medications RESULTS No Results PROCEDURES Procedure Date Ordered Result Body Site DRUG TEST PRSMV CHEM ANLYZR October 08, 2017 INSTRUCTIONS MEDICATIONS ADMINISTERED No Known Medications MEDICAL (GENERAL) HISTORY Type Description Date Medical History cirrhosis of liver Medical History liver transplant Surgical History liver transplant Surgical History kidney biopsy Hospitalization History liver transplant Hospitalization History Bob Jul 2017
--- OUTSIDE RECORDS SUMMARY | 2018-04-15 02:39 | XMS REPORT ---
Author Author TEREZA JAVIER Organization [facility] Address [address] [place] [address] Care Team Providers Care Gas Compressor Operator Name Role Phone TEREZA JAVIER Unavailable PROBLEMS Type Condition ICD9-CM Code BLC74-VH Code Onset Dates Condition Status SNOMED Code Problem ZOSTAVAX DX V05.8 Active 28817979 Problem Other chronic pain G89.29 Active 01513252 Problem Chronic obstructive pulmonary disease, unspecified COPD type J44.9 Active 70677427 Problem Sciatica of left side M54.32 Active 65114980 Problem History of liver transplant Z94.4 Active 967082507 Problem Reactive depression F32.9 Active 16729854 Problem Essential hypertension I10 Active 18052980 ALLERGIES No Information ENCOUNTERS Encounter Location Date Diagnosis [place] [id number] [place] [address] 18617- 6219 Jan, History of liver transplant Z94.4 [place] [id number] [place] [address] 83368- 1056 Jan, Encounter for long-term opiate analgesic use Z79.891 [place] [id number] [place] [address] 67060- 7668 Jan, [place] [id number] [place] [address] 05266- 1699 Dec, History of liver transplant Z94.4 [facility] [id number] [place] [address] 30370- 9519 Dec, Other chronic pain G89.29 ; Unspecified abdominal pain R10.9 and Sciatica of left side M54.32 [facility] [id number] [place] [address] 91032- 3175 November, History of liver transplant Z94.4 [facility] [address], [place] [address]- 2046 Oct, History of liver transplant Z94.4 [facility] [id number] [place] [address] 27151 2546 Oct, History of liver transplant Z94.4 [facility] [address] [place] [address] 45713 2546 Oct, Sciatica of left side M54.32 [facility] [id number] [place] [address] 52499 2546 Sep, [facility] [id number] [place] [address] 95024- 1506 Sep, Sciatica of left side M54.32 and Flu-like symptoms R68.89 [facility] [id number] [place] [address] 20483- 4156 Sep, Sciatica of left side M54.32 [facility] [id number] [place] [address] 91519- 6997 Aug, History of liver transplant Z94.4 [facility] [id number] [place] [address] 61825- 4726 Aug, Sciatica of left side M54.32 [facility] [id number] [place] [address] 92092- 9636 Jul, Generalized edema R60.1 [facility] [id number] [place] [address] 14911 2546 Jun, Sciatica of left side M54.32 [facility] [id number] [place] [address] 59745- 3236 Jun, Sciatica of left side M54.32 [facility] [address], [place] [address]- 8706 May, Sciatica of left side M54.32 ; Encounter for immunization Z23 ; History of liver transplant Z94.4 and Chronic obstructive pulmonary disease, unspecified COPD type J44.9 [facility] [id number] [place] [address] 46227- 7356 May, Sciatica of left side M54.32 [facility] [id number] [place] [address] 95514 2546 Apr, Sciatica of left side M54.32 [facility] [id number] [place] [address] 76893 2546 15 Mar, 2017 Sciatica of left side M54.32 [facility] [id number] [place] [address] 99497 2546 07 Mar, 2017 Sciatica of left side M54.32 [facility] [id number] [place] [address] 04059- 6446 Feb, Sciatica of left side M54.32 [facility] [id number] [place] [address] 38953- 3821 Jan, [facility] [id number] [place] [address] 66561- 6707 Jan, Essential hypertension I10 and Reactive depression F32.9 [facility] [id number] [place] [address] 50763- 6318 Jan, Sciatica of left side M54.32 [facility] [id number] [place] [address] 29792- 7238 Jan, [facility] [id number] [place] [address] 46051- 2546 Dec, [facility] [id number] [place] [address] 88769- 2549 Dec, Sciatica of left side M54.32 [facility] [id number] [place] [address] 46715- 2540 November, Sciatica of left side M54.32 [facility] [id number] [place] [address], [place] [address] 2546 Oct, Sciatica of left side M54.32 [facility] [id number] [place] [address]- 2546 Sep, [facility] [id number] [place] [address]- 2546 Sep, Sciatica of left side M54.32 [facility] [id number] [place] [address], [place] [address]- 2546 Sep, Sciatica of left side M54.32 [facility] [id number] [place] [address]- 2546 Sep, Sciatica of left side M54.32 [facility] [id number] [place] [address]- 2546 Aug, Sciatica of left side M54.32 [facility] [id number] [place] [address], [place] [address]- 2546 Aug, [facility] [id number] [place] [address]- 2546 Jun, Sciatica of left side M54.32 [facility] [id number] [address]- 2546 Jun, [facility] [address], [place] [address] 2546 Jun, [facility] [address], [place] [address]- 2546 May, [facility] [id number] [address]- 2546 May, [facility] [id number], [place] [address]- 2546 Apr, [facility] [id number] [address]- 2546 Apr, Sciatica of left side M54.32 [facility] [id number], [place] [address]- 5161 Mar, [facility] [address], [place] [address]- 5973 Feb, [facility] [address], [place] [address]- 2084 Jan, [facility] [address], [place] [address]- 3502 Jan, Sciatica of left side M54.32 [facility] [address], [place] [address]- 8617 Dec, History of liver transplant Z94.4 and Sciatica of left side M54.32 [facility] [id number], [place] [address]- 4704 Oct, IMMUNIZATIONS No Known Immunizations SOCIAL HISTORY Never Assessed REASON FOR VISIT Requests return call PLAN OF CARE VITAL SIGNS MEDICATIONS Medication [...]
--- OUTSIDE RECORDS SUMMARY | 2018-04-15 02:39 | XMS REPORT ---
Author Author TEREZA JAVIER Organization [facility] Address [address] [place] [address] Care Team Providers Care Communication Skills Instructor Name Role Phone TEREZA JAVIER Unavailable PROBLEMS Type Condition ICD9-CM Code JEE35-WY Code Onset Dates Condition Status SNOMED Code Problem ZOSTAVAX DX V05.8 Active 87178585 Problem Other chronic pain G89.29 Active 73221579 Problem Chronic obstructive pulmonary disease, unspecified COPD type J44.9 Active 97787819 Problem Sciatica of left side M54.32 Active 51617059 Problem History of liver transplant Z94.4 Active 792813540 Problem Reactive depression F32.9 Active 79751791 Problem Essential hypertension I10 Active 37063891 ALLERGIES No Information ENCOUNTERS Encounter Location Date Diagnosis [place] [id number] [place] [address] 55041- 6847 Jan, History of liver transplant Z94.4 [place] [id number] [place] [address] 89841- 2679 Jan, Encounter for long-term opiate analgesic use Z79.891 [place] [id number] [place] [address] 79500- 4267 Jan, [place] [id number] [place] [address] 21190- 9835 Dec, History of liver transplant Z94.4 [facility] [id number] [place] [address] 77368- 1405 Dec, Other chronic pain G89.29 ; Unspecified abdominal pain R10.9 and Sciatica of left side M54.32 [facility] [id number] [place] [address] 24749- 9949 November, History of liver transplant Z94.4 [facility] [address], [place] [address]26 Oct, History of liver transplant Z94.4 [facility] [id number] [place] [address] 33329- 2696 Oct, History of liver transplant Z94.4 [facility] [id number] [place] [address] 94582- 5386 Oct, Sciatica of left side M54.32 [facility] [id number] [place] [address] 19112- 3376 Sep, [facility] [id number] [place] [address] 11104- 9656 Sep, Sciatica of left side M54.32 and Flu-like symptoms R68.89 [facility] [id number] [place] [address] 03026- 7076 Sep, Sciatica of left side M54.32 [facility] [id number] [place] [address] 52725- 4926 Aug, History of liver transplant Z94.4 [facility] [id number] [place] [address] 07144- 4006 Aug, Sciatica of left side M54.32 [facility] [id number] [place] [address] 70391- 5866 Jul, Generalized edema R60.1 [facility] [id number] [place] [address] 76188- 8293 Jun, Sciatica of left side M54.32 [facility] [id number] [place] [address] 49166- 4526 Jun, Sciatica of left side M54.32 [facility] [address], [place] [address] 0876 May, Encounter for immunization Z23 ; Sciatica of left side M54.32 ; History of liver transplant Z94.4 and Chronic obstructive pulmonary disease, unspecified COPD type J44.9 [facility] [id number] [place] [address] 02831- 8456 May, Sciatica of left side M54.32 [facility] [id number] [place] [address] 46305 2546 Apr, Sciatica of left side M54.32 [facility] [id number] [place] [address] 01547 2546 15 Mar, 2017 Sciatica of left side M54.32 [facility] [id number] [place] [address] 22265 2546 07 Mar, 2017 Sciatica of left side M54.32 [facility] [id number] [place] [address] 06309- 4816 Feb, Sciatica of left side M54.32 [facility] [id number] [place] [address] 75514- 3975 Jan, [facility] [id number] [place] [address] 40313- 2235 Jan, Essential hypertension I10 and Reactive depression F32.9 [facility] [id number] [place] [address] 32886- 6100 Jan, Sciatica of left side M54.32 [facility] [id number] [place] [address] 72018- 6446 Jan, [facility] [id number] [place] [address] 62160- 2546 Dec, [facility] [id number] [place] [address] 21237- 2548 Dec, Sciatica of left side M54.32 [facility] [id number] [place] [address] 31987- 2545 November, Sciatica of left side M54.32 [facility] [id number] [place] [address], [place] [address] 2546 Oct, Sciatica of left side M54.32 [facility] [id number] [address]- 2546 Sep, [facility] [id number] [place] [address]- 2546 Sep, Sciatica of left side M54.32 [facility] [id number] [place] [address], [place] [address]- 2546 Sep, Sciatica of left side M54.32 [facility] [id number] [place] [address]- 2546 Sep, Sciatica of left side M54.32 [facility] [address] [place] [address]- 2546 Aug, Sciatica of left side M54.32 [facility] [id number] [place] [address], [place] [address]- 2546 Aug, [facility] [id number] [place] [address]- 2546 Jun, Sciatica of left side M54.32 [facility] [id number] [place] [address]- 2546 Jun, [facility] [address], [place] [address] 2546 Jun, [facility] [address], [place] [address]- 2546 May, [facility] [id number] [place] [address]- 2546 May, [facility] [id number] [address]- 2546 Apr, [facility] [id number] [address]- 2546 Apr, Sciatica of left side M54.32 [facility] [id number] [address]- 5180 Mar, [facility] [address], [place] [address]- 3911 Feb, [facility] [address], [place] [address]- 7355 Jan, [facility] [address] [place] [address] 417816- 9288 Jan, Sciatica of left side M54.32 [facility] [address], [place] [address]- 9913 Dec, History of liver transplant Z94.4 and Sciatica of left side M54.32 [place] [address], [place] [address]- 6068 Oct, IMMUNIZATIONS No Known Immunizations SOCIAL HISTORY Never Assessed REASON FOR VISIT Oxycodone 10/05 PLAN OF CARE VITAL SIGNS MEDICATIONS Medication [...]
--- OUTSIDE RECORDS SUMMARY | 2018-04-15 02:39 | XMS REPORT ---
Author Author TEREZA JAVIER Organization [facility] [place] Address [address] [place] [address] Care Team Providers Care Director Of Online Merchandising Name Role Phone TEREZA JAVIER Unavailable PROBLEMS Type Condition ICD9-CM Code NGS15-TZ Code Onset Dates Condition Status SNOMED Code Problem Chronic obstructive pulmonary disease, unspecified COPD type J44.9 Active 49060186 Problem Reactive depression F32.9 Active 46950396 Problem History of liver transplant Z94.4 Active 365048446 Problem ZOSTAVAX DX V05.8 Active 28212374 Problem Essential hypertension I10 Active 68944064 Problem Sciatica of left side M54.32 Active 06411252 ALLERGIES No Information ENCOUNTERS Encounter Location Date Diagnosis [place] [id number] [place] [address] 38924- 0576 Oct, [place] [id number] [place] [address] 46345- 7835 Oct, History of liver transplant Z94.4 [place] [id number] [place] [address] 31062- 6389 Oct, Sciatica of left side M54.32 [place] [id number] [place] [address] 01219- 6303 Sep, [place] [id number] [place] [address] 05928- 3978 Sep, Sciatica of left side M54.32 and Flu-like symptoms R68.89 [place] [id number] [place] [address] 89509- 7972 Sep, Sciatica of left side M54.32 [place] [id number] [place] [address] 49444- 0237 Aug, History of liver transplant Z94.4 [facility] [place] [id number] [place] [address] 02294- 8767 Aug, Sciatica of left side M54.32 [facility] [place] [id number] [place] [address] 72252- 1416 Jul, Generalized edema R60.1 [facility] [place] [id number] [place] [address] 84191- 9146 Jun, Sciatica of left side M54.32 [facility] [place] [id number] [place] [address] 32050- 7188 Jun, Sciatica of left side M54.32 [facility] [place] [id number] [place] [address] 12117- 4655 May, Encounter for immunization Z23 ; Sciatica of left side M54.32 ; History of liver transplant Z94.4 and Chronic obstructive pulmonary disease, unspecified COPD type J44.9 [facility] [place] [id number] [place] [address] 99170- 7609 May, Sciatica of left side M54.32 [facility] [place] [id number] [place] [address] 02172- 8273 Apr, Sciatica of left side M54.32 [facility] [place] [id number] [place] [address] 73339- 5853 15 Mar, 2017 Sciatica of left side M54.32 [facility] [place] [id number] [place] [address] 50323- 3924 07 Mar, 2017 Sciatica of left side M54.32 [facility] [place] [id number] [place] [address] 72686- 5599 Feb, Sciatica of left side M54.32 [facility] [place] [id number] [place] [address] 38453- 0198 Jan, [facility] [place] [address] 27909- 7166 Jan, Essential hypertension I10 and Reactive depression F32.9 [facility] [place] [id number] [place] [address] 80315- 0736 Jan, Sciatica of left side M54.32 [facility] [place] [id number] [place] [address] 33074 2546 Jan, [facility] [place] [id number] [place] [address] 15446- 3386 Dec, [facility] [place] [id number] [place] [address] 54037 2546 Dec, Sciatica of left side M54.32 [facility] [place] [id number] [place] [address] 63697- 4256 November, Sciatica of left side M54.32 [facility] [place] [id number] [place] [address] 21722- 0856 Oct, Sciatica of left side M54.32 [facility] [place] [id number] [place] [address] 59670 2546 Sep, [facility] [place] [id number] [place] [address] 26746- 2546 Sep, Sciatica of left side M54.32 [facility] [place] [id number] [place] [address] 43969 2546 Sep, Sciatica of left side M54.32 [facility] [place] [id number] [place] [address] 81136 2546 Sep, Sciatica of left side M54.32 [facility] [place] [id number] [place] [address] 49527 2546 Aug, Sciatica of left side M54.32 [facility] [place] [id number] [place] [address] 36938- 2546 Aug, [facility] [place] [id number] [place] [address] 52813- 1270 Jun, Sciatica of left side M54.32 [facility] [place] [address] [address]- 2536 Jun, [facility] [place] [address] [address]- 2776 Jun, [facility] [place] [address] [place] [address] 91863- 8786 May, [facility] [place] [id number] [place] [address] 70110- 4782 May, [facility] [place] [id number] [place] [address] 723903- 1524 Apr, [facility] [place] [id number] [place] [address] 978143- 8201 Apr, Sciatica of left side M54.32 [facility] [place] [id number] [place] [address] 333752- 6186 Mar, [facility] [place] [address]- 1080 Feb, [facility] [place] [address] [place] [address] 583577- 0510 Jan, [facility] [place] [address] [address]- 9348 Jan, Sciatica of left side M54.32 [facility] [place] [address]- 2258 Dec, History of liver transplant Z94.4 and Sciatica of left side M54.32 [facility] [place] [address]- 8771 Oct, IMMUNIZATIONS No Known Immunizations SOCIAL HISTORY Never Assessed REASON FOR VISIT Awaiting return call PLAN OF CARE VITAL SIGNS MEDICATIONS Unknown Medications RESULTS No Results PROCEDURES No Known procedures INSTRUCTIONS MEDICATIONS ADMINISTERED No Known Medications MEDICAL (GENERAL) HISTORY Type Description Date Medical History cirrhosis of liver Medical History liver transplant Surgical History liver transplant Surgical History kidney biopsy Hospitalization History liver transplant Hospitalization History Bob Jul 2017
--- OUTSIDE RECORDS SUMMARY | 2018-04-15 02:39 | XMS REPORT ---
Author Author TEREZA JAVIER Organization [facility] Address [address] [place] [address] Care Team Providers Care Roller Repairer Name Role Phone TEREZA JAVIER Unavailable PROBLEMS Type Condition ICD9-CM Code CCC81-AU Code Onset Dates Condition Status SNOMED Code Problem ZOSTAVAX DX V05.8 Active 96975993 Problem Other chronic pain G89.29 Active 72613871 Problem Chronic obstructive pulmonary disease, unspecified COPD type J44.9 Active 18470009 Problem Sciatica of left side M54.32 Active 20796663 Problem History of liver transplant Z94.4 Active 505624839 Problem Reactive depression F32.9 Active 58751641 Problem Essential hypertension I10 Active 93937578 ALLERGIES No Information ENCOUNTERS Encounter Location Date Diagnosis [place] [id number] [place] [address] 72965- 1532 Jan, History of liver transplant Z94.4 [place] [id number] [place] [address] 16021- 3241 Jan, Encounter for long-term opiate analgesic use Z79.891 [place] [id number] [place] [address] 11645- 9511 Jan, [place] [id number] [place] [address] 75379- 6469 Dec, History of liver transplant Z94.4 [facility] [id number] [place] [address] 55936- 6036 Dec, Other chronic pain G89.29 ; Unspecified abdominal pain R10.9 and Sciatica of left side M54.32 [facility] [id number] [place] [address] 05079- 6463 November, History of liver transplant Z94.4 [facility] [address], [place] [address] 9586 Oct, History of liver transplant Z94.4 [facility] [id number] [place] [address] 31588- 3676 Oct, History of liver transplant Z94.4 [facility] [id number] [place] [address] 44421- 0316 Oct, Sciatica of left side M54.32 [facility] [id number] [place] [address] 75949- 0166 Sep, [facility] [id number] [place] [address] 46772- 2646 Sep, Sciatica of left side M54.32 and Flu-like symptoms R68.89 [facility] [id number] [place] [address] 47756- 4436 Sep, Sciatica of left side M54.32 [facility] [id number] [place] [address] 48689- 6210 Aug, History of liver transplant Z94.4 [facility] [id number] [place] [address] 62247- 9116 Aug, Sciatica of left side M54.32 [facility] [id number] [place] [address] 31054- 4986 Jul, Generalized edema R60.1 [facility] [id number] [place] [address] 37477- 8448 Jun, Sciatica of left side M54.32 [facility] [id number] [place] [address] 14443- 0016 Jun, Sciatica of left side M54.32 [facility] [address], [place] [address]- 8996 May, Encounter for immunization Z23 ; Sciatica of left side M54.32 ; History of liver transplant Z94.4 and Chronic obstructive pulmonary disease, unspecified COPD type J44.9 [facility] [id number] [place] [address] 15167- 4466 May, Sciatica of left side M54.32 [facility] [id number] [place] [address] 57136 2546 Apr, Sciatica of left side M54.32 [facility] [id number] [place] [address] 83853 2546 15 Mar, 2017 Sciatica of left side M54.32 [facility] [id number] [place] [address] 24768 2546 07 Mar, 2017 Sciatica of left side M54.32 [facility] [id number] [place] [address] 42516- 8936 Feb, Sciatica of left side M54.32 [facility] [id number] [place] [address] 83319- 0356 Jan, [facility] [id number] [place] [address] 50184- 3496 Jan, Essential hypertension I10 and Reactive depression F32.9 [facility] [id number] [place] [address] 32236- 4090 Jan, Sciatica of left side M54.32 [facility] [id number] [place] [address] 89260- 6248 Jan, [facility] [id number] [place] [address] 84006- 2546 Dec, [facility] [id number] [place] [address] 11062- 2544 Dec, Sciatica of left side M54.32 [facility] [id number] [place] [address] 59079- 2540 November, Sciatica of left side M54.32 [facility] [id number] [place] [address], [place] [address] 2546 Oct, Sciatica of left side M54.32 [facility] [id number] [place] [address]- 2546 Sep, [facility] [address] [place] [address]- 2546 Sep, Sciatica of left side M54.32 [facility] [id number] [place] [address], [place] [address]- 2546 Sep, Sciatica of left side M54.32 [facility] [id number] [address]- 2546 Sep, Sciatica of left side M54.32 [facility] [address] [place] [address]- 2546 Aug, Sciatica of left side M54.32 [facility] [id number] [place] [address], [place] [address]- 2546 Aug, [facility] [address] [place] [address]- 2546 Jun, Sciatica of left side M54.32 [facility] [address] [place] [address]- 2546 Jun, [facility] [address], [place] [address] 2546 Jun, [facility] [address], [place] [address]- 2546 May, [facility] [id number] [address]- 2546 May, [facility] [id number] [address]- 2546 Apr, [facility] [id number] [address]- 2546 Apr, Sciatica of left side M54.32 [facility] [id number] [address]- 3334 Mar, [facility] [address], [place] [address]- 0162 Feb, [facility] [address], [place] [address]- 6866 Jan, [facility] [address] [place] [address] 79710- 5811 Jan, Sciatica of left side M54.32 [facility] [address], [place] [address]- 6664 Dec, History of liver transplant Z94.4 and Sciatica of left side M54.32 [facility] [address], [place] [address]- 4874 Oct, IMMUNIZATIONS No Known Immunizations SOCIAL HISTORY Never Assessed REASON FOR VISIT Requesting refill on controlled substance PLAN OF CARE VITAL SIGNS MEDICATIONS Unknown Medications RESULTS No Results PROCEDURES No Known procedures INSTRUCTIONS MEDICATIONS ADMINISTERED No Known Medications MEDICAL (GENERAL) HISTORY Type Description Date Medical History cirrhosis of liver Medical History liver transplant Surgical History liver transplant Surgical History kidney biopsy Hospitalization History liver transplant Hospitalization History Bbo Jul 2017
--- OUTSIDE RECORDS SUMMARY | 2018-04-15 02:40 | XMS REPORT ---
Author Author TEREZA JAVIER Organization [facility] Address [address] [place] [address] Care Team Providers Care Performance Test Architect Name Role Phone TEREZA JAVIER Unavailable PROBLEMS Type Condition ICD9-CM Code XYA37-BI Code Onset Dates Condition Status SNOMED Code Problem Chronic obstructive pulmonary disease, unspecified COPD type J44.9 Active 87923707 Problem Reactive depression F32.9 Active 51629639 Problem History of liver transplant Z94.4 Active 386539629 Problem ZOSTAVAX DX V05.8 Active 75083595 Problem Essential hypertension I10 Active 58397422 Problem Sciatica of left side M54.32 Active 45140310 ALLERGIES No Information ENCOUNTERS Encounter Location Date Diagnosis [place] [id number] [place] [address] 94881- 0116 Oct, [place] [id number] [place] [address] 02997- 4490 Aug, History of liver transplant Z94.4 [place] [id number] [place] [address] 05862- 3283 Aug, Sciatica of left side M54.32 [place] [id number] [place] [address] 69703- 3559 Jul, Generalized edema R60.1 [place] [id number] [place] [address] 81427- 7307 Jun, Sciatica of left side M54.32 [place] [id number] [place] [address] 12477- 2242 Jun, Sciatica of left side M54.32 [place] [id number] [place] [address] 04294- 1208 May, Sciatica of left side M54.32 ; Encounter for immunization Z23 ; History of liver transplant Z94.4 and Chronic obstructive pulmonary disease, unspecified COPD type J44.9 [facility] [id number] [place] [address] 44494- 3706 May, Sciatica of left side M54.32 [facility] [id number] [place] [address] 95342- 4746 Apr, Sciatica of left side M54.32 [facility] [id number] [place] [address] 55519- 2001 15 Mar, 2017 Sciatica of left side M54.32 [facility] [id number] [place] [address] 70258- 8316 07 Mar, 2017 Sciatica of left side M54.32 [facility] [id number] [place] [address] 22173- 5351 Feb, Sciatica of left side M54.32 [facility] [id number] [place] [address] 39536- 5740 Jan, [facility] [id number] [place] [address] 60834- 9564 Jan, Essential hypertension I10 and Reactive depression F32.9 [facility] [id number] [place] [address] 70086- 8048 Jan, Sciatica of left side M54.32 [facility] [id number] [place] [address] 71439- 0286 Jan, [facility] [id number] [place] [address] 10496- 6146 Dec, [facility] [id number] [place] [address] 16718- 6702 Dec, Sciatica of left side M54.32 [facility] [id number] [place] [address] 47732- 5789 November, Sciatica of left side M54.32 [facility] [id number] [place] [address] 2546 Oct, Sciatica of left side M54.32 [facility] [id number] [place] [address], [place] [address]- 2546 Sep, [facility] [id number] [place] [address], [place] [address] 2546 Sep, Sciatica of left side M54.32 [facility] [id number] [place] [address], [place] [address]- 2546 Sep, Sciatica of left side M54.32 [facility] [id number] [place] [address], [place] [address]- 2546 Sep, Sciatica of left side M54.32 [facility] [id number] [place] [address], [place] [address] 2546 Aug, Sciatica of left side M54.32 [facility] [address] [place] [address] 2546 Aug, [facility] [id number] [place] [address], [place] [address] 2546 Jun, Sciatica of left side M54.32 [facility] [address] [place] [address] 2546 Jun, [facility] [address] [address]- 2546 Jun, [facility] [id number] [place] [address] 2546 May, [facility] [id number] [place] [address], [place] [address]- 2546 May, [facility] [id number] [place] [address] 2546 14 Apr, 2016 [facility] [id number] [place] [address] 02802- 9436 Apr, Sciatica of left side M54.32 [facility] [id number] [address] 2546 Mar, [facility] [address] [address]- 2546 Feb, [facility] [address] [address]- 2546 Jan, [facility] [address] [address]- 2546 Jan, Sciatica of left side M54.32 [place] [address] [address] 2546 Dec, History of liver transplant Z94.4 and Sciatica of left side M54.32 [place] [id number] [address] 2546 Oct, IMMUNIZATIONS No Known Immunizations SOCIAL HISTORY Never Assessed REASON FOR VISIT Oxycodone 12/29 PLAN OF CARE VITAL SIGNS MEDICATIONS Medication Instructions Dosage Frequency Start Date End Date Duration Status OxyContin 80 MG Orally 3 times a day 1 tablet 8h Dec, 28 days Active Oxycodone HCl 30 MG Orally every 4 hrs 1 tablet 4h Dec, 28 days Active RESULTS No Results PROCEDURES No Known procedures INSTRUCTIONS MEDICATIONS ADMINISTERED No Known Medications MEDICAL (GENERAL) HISTORY Type Description Date Medical History cirrhosis of liver Medical History liver transplant Surgical History liver transplant Surgical History kidney biopsy Hospitalization History liver transplant Hospitalization History Bob Jul 2017
--- OUTSIDE RECORDS SUMMARY | 2018-04-15 02:40 | XMS REPORT ---
Author Author TEREZA JAVIER Organization [facility] Address [address] [place] [address] Care Team Providers Care Handbook Writer Name Role Phone TEREZA JAVIER Unavailable PROBLEMS Type Condition ICD9-CM Code RUH09-BU Code Onset Dates Condition Status SNOMED Code Problem Chronic obstructive pulmonary disease, unspecified COPD type J44.9 Active 26772988 Problem Reactive depression F32.9 Active 69630892 Problem History of liver transplant Z94.4 Active 427012928 Problem ZOSTAVAX DX V05.8 Active 85581840 Problem Essential hypertension I10 Active 01208769 Problem Sciatica of left side M54.32 Active 75782347 ALLERGIES No Information ENCOUNTERS Encounter Location Date Diagnosis [place] [address] [place] [address] 30272- 9741 Dec, [place] [id number] [place] [address] 30111- 7560 November, History of liver transplant Z94.4 [place] [id number] [place] [address] 06063- 4563 Oct, History of liver transplant Z94.4 [place] [address] [place] [address] 53384- 1850 Oct, History of liver transplant Z94.4 [place] [address] [address]- 8917 Oct, Sciatica of left side M54.32 [place] [address] [place] [address] 47313- 6893 Sep, [place] [address] [place] [address] 94595- 1702 Sep, Sciatica of left side M54.32 and Flu-like symptoms R68.89 [facility] [id number] [place] [address] 14355- 3387 Sep, Sciatica of left side M54.32 [facility] [id number] [place] [address] 92492- 3616 Aug, History of liver transplant Z94.4 [facility] [id number] [place] [address] 51247- 7736 Aug, Sciatica of left side M54.32 [facility] [id number] [place] [address] 59193- 3257 Jul, Generalized edema R60.1 [facility] [id number] [place] [address] 91567- 7075 Jun, Sciatica of left side M54.32 [facility] [address] 96452- 4118 Jun, Sciatica of left side M54.32 [facility] [id number] [place] [address] 32391- 9874 May, Encounter for immunization Z23 ; Sciatica of left side M54.32 ; History of liver transplant Z94.4 and Chronic obstructive pulmonary disease, unspecified COPD type J44.9 [facility] [id number] [place] [address] 54801- 7218 May, Sciatica of left side M54.32 [facility] [id number] [place] [address] 29412- 9322 10 Apr, 2017 Sciatica of left side M54.32 [facility] [address] 39440- 0084 15 Mar, 2017 Sciatica of left side M54.32 [facility] [id number] [place] [address] 24238- 9068 07 Mar, 2017 Sciatica of left side M54.32 [facility] [address] [place] [address]- 2365 Feb, Sciatica of left side M54.32 [facility] [id number] [place] [address] 44179- 0026 Jan, [facility] [id number] [place] [address] 62781 2546 Jan, Essential hypertension I10 and Reactive depression F32.9 [facility] [id number] [place] [address] 85620 2546 Jan, Sciatica of left side M54.32 [facility] [id number] [place] [address] 40842- 3376 Jan, [facility] [id number] [place] [address] 44724- 5756 Dec, [facility] [id number] [place] [address] 92837- 2666 Dec, Sciatica of left side M54.32 [facility] [id number] [place] [address] 82775- 2585 November, Sciatica of left side M54.32 [facility] [id number] [place] [address] 98652- 0576 Oct, Sciatica of left side M54.32 [facility] [id number] [place] [address] 53684 2546 Sep, [facility] [id number] [place] [address] 43799 2546 Sep, Sciatica of left side M54.32 [facility] [id number] [place] [address] 66956 2546 Sep, Sciatica of left side M54.32 [facility] [address] [place] [address] 11185 2546 Sep, Sciatica of left side M54.32 [facility] [id number] [place] [address], [place] [address]- 5466 Aug, Sciatica of left side M54.32 [facility] [address] [address] 2546 Aug, [facility] [address] [address] 2546 Jun, Sciatica of left side M54.32 [facility] [id number] [address]- 9686 Jun, [facility] [id number] [address]- 1586 Jun, [facility] [address] [place] [address], [place] [address]- 0016 May, [facility] [id number] 1706 May, [facility] [address] [address]- 0156 Apr, [facility] [id number] [address]- 4786 Apr, Sciatica of left side M54.32 [facility] [id number] [address] Mar, [facility] ([facility] [id number] [address] Feb, [facility] ([facility] [address] [id number] [address] Jan, [facility] ([facility] [id number] [address] Jan, Sciatica of left side M54.32 [facility] ([facility] [id number] [address] Dec, History of liver transplant Z94.4 and Sciatica of left side M54.32 [facility] ([facility] [id number] [id number] Oct, IMMUNIZATIONS No Known Immunizations SOCIAL HISTORY Never Assessed REASON FOR VISIT Oxycodone 06/15 PLAN OF CARE VITAL SIGNS MEDICATIONS Medication Instructions Dosage Frequency Start Date End Date Duration Status Oxycodone HCl 30 MG Orally every 4 hrs 1 tablet 4h Jun, 28 days Active OxyContin 80 MG Orally 3 times a day 1 tablet 8h Jun, 28 days Active RESULTS No Results PROCEDURES No Known procedures INSTRUCTIONS MEDICATIONS ADMINISTERED No Known Medications MEDICAL (GENERAL) HISTORY Type Description Date Medical History cirrhosis of liver Medical History liver transplant Surgical History liver transplant Surgical History kidney biopsy Hospitalization History liver transplant Hospitalization History [facility] Jul 2017
--- OUTSIDE RECORDS SUMMARY | 2018-04-15 02:40 | XMS REPORT ---
Author Author TEREAZ JAVIER Organization [facility] Address [address] [place] [address] Care Team Providers Care Unit Operator Name Role Phone TEREZA JAVIER Unavailable PROBLEMS Type Condition ICD9-CM Code MBO27-VN Code Onset Dates Condition Status SNOMED Code Problem ZOSTAVAX DX V05.8 Active 03647896 Problem Other chronic pain G89.29 Active 46070102 Problem Chronic obstructive pulmonary disease, unspecified COPD type J44.9 Active 83939941 Problem Sciatica of left side M54.32 Active 25820224 Problem History of liver transplant Z94.4 Active 735631135 Problem Reactive depression F32.9 Active 99786257 Problem Essential hypertension I10 Active 58325648 ALLERGIES No Information ENCOUNTERS Encounter Location Date Diagnosis [place] [id number] [place] [address] 39680- 6711 Dec, Other chronic pain G89.29 ; Unspecified abdominal pain R10.9 and Sciatica of left side M54.32 [place] [id number] [place] [address] 79980- 6355 November, History of liver transplant Z94.4 [place] [id number] [place] [address] 34204- 3296 Oct, History of liver transplant Z94.4 [facility] [id number] [place] [address] 97453- 6509 Oct, History of liver transplant Z94.4 [place] [id number] [place] [address] 57970- 5294 Oct, Sciatica of left side M54.32 [facility] [id number] [place] [address] 78710- 9470 Sep, [place] [id number] [place] [address] 36851- 3684 Sep, Sciatica of left side M54.32 and Flu-like symptoms R68.89 [facility] [address] 84779- 9066 Sep, Sciatica of left side M54.32 [facility] [address] 87155- 6734 Aug, History of liver transplant Z94.4 [facility] [address] 48721- 5755 Aug, Sciatica of left side M54.32 [place] [address] 72361- 3252 Jul, Generalized edema R60.1 [place] [address] 06215- 9240 Jun, Sciatica of left side M54.32 [place] [address] 43240- 1063 Jun, Sciatica of left side M54.32 [place] [address] 49855- 2574 May, Sciatica of left side M54.32 ; Encounter for immunization Z23 ; History of liver transplant Z94.4 and Chronic obstructive pulmonary disease, unspecified COPD type J44.9 [facility] [id number] [place] [address] 98656- 2962 May, Sciatica of left side M54.32 [place] [address] 31975- 9360 10 Apr, 2017 Sciatica of left side M54.32 [facility] [id number] [place] [address] 93010- 3257 15 Mar, 2017 Sciatica of left side M54.32 [facility] [address] [place] [address]- 7646 07 Mar, 2017 Sciatica of left side M54.32 [facility] [id number] [place] [address] 99069- 4656 Feb, Sciatica of left side M54.32 [facility] [id number] [place] [address] 17180 2546 Jan, [facility] [id number] [place] [address] 56804 2546 Jan, Essential hypertension I10 and Reactive depression F32.9 [facility] [id number] [place] [address] 69594 2546 Jan, Sciatica of left side M54.32 [facility] [id number] [place] [address] 13836- 2546 Jan, [facility] [id number] [place] [address] 67031- 8216 Dec, [facility] [id number] [place] [address] 19518 2546 Dec, Sciatica of left side M54.32 [facility] [id number] [place] [address] 99124 2546 November, Sciatica of left side M54.32 [facility] [id number] [place] [address] 46908- 1896 Oct, Sciatica of left side M54.32 [facility] [id number] [place] [address] 73516 2546 Sep, [facility] [id number] [place] [address] 79992 2546 Sep, Sciatica of left side M54.32 [facility] [address] [address] 2546 Sep, Sciatica of left side M54.32 [facility] [id number] [place] [address] 21980 2546 Sep, Sciatica of left side M54.32 [facility] [id number] [place] [address]- 2546 Aug, Sciatica of left side M54.32 [facility] [address] [place] [id number] [place] [address]- 2546 Aug, [facility] [id number] [place] [address] 2546 Jun, Sciatica of left side M54.32 [facility] [id number] [place] [address]- 2546 Jun, [facility] [id number] [place] [address] 2546 Jun, [facility] [id number] [place] [address], [place] [address] 2546 May, [facility] [id number] [place] [address] 2546 May, [facility] [id number] [place] [address] 2546 Apr, [facility] [id number] [place] [address] 2546 Apr, Sciatica of left side M54.32 [facility] [id number] [place] [address] 2546 Mar, [facility] [id number] [address] 2546 Feb, [facility] [id number] [place] [address] 2546 Jan, [facility] [id number] [place] [address]- 2546 Jan, Sciatica of left side M54.32 [facility] [address] [address]- 9769 Dec, History of liver transplant Z94.4 and Sciatica of left side M54.32 [facility] [address] [facility] [id number] [place] [address] 4463 Oct, IMMUNIZATIONS No Known Immunizations SOCIAL HISTORY Never Assessed REASON FOR VISIT Oxycodone and Oxycontin 1/5 PLAN OF CARE VITAL SIGNS MEDICATIONS Medication Instructions Dosage Frequency Start Date End Date Duration Status OxyContin 80 MG Orally 3 times a day 1 tablet 8h Jul, 28 days Active Oxycodone HCl 30 MG Orally every 4 hrs 1 tablet 4h Jul, 28 days Active RESULTS No Results PROCEDURES No Known procedures INSTRUCTIONS MEDICATIONS ADMINISTERED No Known Medications MEDICAL (GENERAL) HISTORY Type Description Date Medical History cirrhosis of liver Medical History liver transplant Surgical History liver transplant Surgical History kidney biopsy Hospitalization History liver transplant Hospitalization History Bob Jul 2017
--- OUTSIDE RECORDS SUMMARY | 2018-04-15 02:40 | XMS REPORT ---
Author Author TEREZA JAVIER Organization [facility] Address [address] [place] [address] Care Team Providers Care Health Commissioner Name Role Phone TEREZA JAVIER Unavailable PROBLEMS Type Condition ICD9-CM Code HWK78-RV Code Onset Dates Condition Status SNOMED Code Problem Chronic obstructive pulmonary disease, unspecified COPD type J44.9 Active 53741117 Problem Reactive depression F32.9 Active 96397828 Problem History of liver transplant Z94.4 Active 896977857 Problem ZOSTAVAX DX V05.8 Active 62279655 Problem Essential hypertension I10 Active 32247862 Problem Sciatica of left side M54.32 Active 50291576 ALLERGIES No Known Allergies ENCOUNTERS Encounter Location Date Diagnosis [place] [id number] [place] [address] 18552- 6994 Dec, [place] [id number] [place] [address] 94169- 2839 November, History of liver transplant Z94.4 [place] [id number] [place] [address] 56233- 2489 Oct, History of liver transplant Z94.4 [place] [id number] [place] [address] 02163- 6260 Oct, History of liver transplant Z94.4 [place] [id number] [place] [address] 19588- 1732 Oct, Sciatica of left side M54.32 [place] [id number] [place] [address] 93799- 5253 Sep, [place] [id number] [place] [address] 27120- 4978 Sep, Sciatica of left side M54.32 and Flu-like symptoms R68.89 [facility] [id number] [place] [address] 32642- 7082 Sep, Sciatica of left side M54.32 [facility] [id number] [place] [address] 33802- 9996 Aug, History of liver transplant Z94.4 [facility] [id number] [place] [address] 53812- 6783 Aug, Sciatica of left side M54.32 [facility] [id number] [place] [address] 86624- 8528 Jul, Generalized edema R60.1 [facility] [id number] [place] [address] 20289- 9334 Jun, Sciatica of left side M54.32 [facility] [id number] [place] [address] 73376- 4972 Jun, Sciatica of left side M54.32 [facility] [id number] [place] [address] 44208- 7276 May, Sciatica of left side M54.32 ; Encounter for immunization Z23 ; History of liver transplant Z94.4 and Chronic obstructive pulmonary disease, unspecified COPD type J44.9 [facility] [id number] [place] [address] 23842- 0941 May, Sciatica of left side M54.32 [facility] [id number] [place] [address] 02703- 4736 10 Apr, 2017 Sciatica of left side M54.32 [facility] [address] 10209- 1125 15 Mar, 2017 Sciatica of left side M54.32 [facility] [id number] [place] [address] 53723- 1246 07 Mar, 2017 Sciatica of left side M54.32 [facility] [address] [place] [address]- 9596 Feb, Sciatica of left side M54.32 [facility] [id number] [place] [address] 42478 2546 Jan, [facility] [id number] [place] [address] 42894 2546 Jan, Essential hypertension I10 and Reactive depression F32.9 [facility] [id number] [place] [address] 22766 2546 Jan, Sciatica of left side M54.32 [facility] [id number] [place] [address] 22228- 6936 Jan, [facility] [id number] [place] [address] 16964- 8926 Dec, [facility] [id number] [place] [address] 40136- 7796 Dec, Sciatica of left side M54.32 [facility] [id number] [place] [address] 71801 2547 November, Sciatica of left side M54.32 [facility] [id number] [place] [address] 00375 2546 Oct, Sciatica of left side M54.32 [facility] [id number] [place] [address] 57228 2546 Sep, [facility] [id number] [place] [address] 75037 2546 Sep, Sciatica of left side M54.32 [facility] [id number] [place] [address] 03673 2546 Sep, Sciatica of left side M54.32 [facility] [id number] [place] [address] 20317 2546 Sep, Sciatica of left side M54.32 [facility] [address] [id number] [place] [address] 2546 Aug, Sciatica of left side M54.32 [facility] [id number] [place] [address] 2546 Aug, [facility] [address] [place] [id number] [place] [address] 2546 Jun, Sciatica of left side M54.32 [facility] [id number] [place] [address]- 3876 Jun, [facility] [address] [place] [id number] [place] [address]- 8806 Jun, [facility] [id number] [place] [address]- 6356 May, [facility] [id number] [place] [address]- 5656 May, [facility] [id number] [place] 0116 Apr, [facility] [address] [place] [id number] [place] [address]- 5034 Apr, Sciatica of left side M54.32 [facility] [id number] [place] [address]- 6486 Mar, [facility] [address] [address]- 8256 Feb, [facility] [id number] [address] 2546 Jan, [facility] [id number] [address]- 2096 Jan, Sciatica of left side M54.32 [facility] [address] [id number] [address] 2546 Dec, History of liver transplant Z94.4 and Sciatica of left side M54.32 [facility] [address] [address]- 6947 Oct, IMMUNIZATIONS Vaccine Route Administration Date Status FLUARIX QUAD (3 AND UP) 2016 IM Intramuscular May 29, 2017 Administered PCV 13 IM Intramuscular May 29, 2017 Administered SOCIAL HISTORY Never Assessed REASON FOR VISIT Pain management (chronic), PT has had multiple proceduers since last time he was here-[facility] PLAN OF CARE Activity Details Follow Up 3 Months Reason: VITAL SIGNS Height 72 in 2017-05-29 Weight 173.8 lbs 2017-05-29 Temperature 98.6 degrees Fahrenheit 2017-05-29 Heart Rate 74 bpm 2017-05-29 Respiratory Rate 22 2017-05-29 BMI 23.57 kg/m2 2017-05-29 Blood pressure systolic 150 mmHg 2017-05-29 Blood pressure diastolic 88 mmHg 2017-05-29 MEDICATIONS Medication Instructions Dosage Frequency Start Date End Date Duration Status Lactulose 20 GM/30ML Orally 4 times a day 45 ml 6h Active Vitamin D 1000 UNIT Orally Once a day 1 tablet 24h Active Oxycodone HCl 30 MG Orally every 4 hrs 1 tablet 4h May, 28 days Active Mirtazapine 15 mg Orally Once a day 1 tablet at bedtime 24h Jan, 30 day(s) Not-Taking Potassium 99 MG Orally Once a day 1 tablet 24h Active Klor-Con 25 MEQ Orally Once a day 1 packet with food 24h Active Symbicort 160-4.5 MCG/ACT Inhalation Twice a day 2 puffs 12h Active Xifaxan 550 MG Orally Twice a day 1 tablet 12h Active Prograf 0.5 MG Orally Once a day 3 capsules 24h Active Magnesium 500 MG Orally twice a day 1 tablet with a meal 12h Active ProAir HFA 108 (90 Base) MCG/ACT Inhalation every 4 hrs 2 puffs as needed 4h Dec, 0 days Active OxyContin 80 MG Orally 3 times a day 1 tablet 8h May, 28 days Active Nebulizer - Active Albuterol Sulfate (5 MG/ML) 0.5% Inhalation Three times a day 0.5 ml 8h Active RESULTS No Results PROCEDURES Procedure Date Ordered Result Body Site PCV 13 May 29, 2017 SINGLE IMMUNIZATION ADMIN May 29, 2017 FLUARIX QUAD (3 AND UP) 2016May 29, 2017 IMMUNIZATION ADMIN, EACH ADD (please include units) May 29, 2017 INSTRUCTIONS MEDICATIONS ADMINISTERED No Known Medications MEDICAL (GENERAL) HISTORY Type Description Date Medical History cirrhosis of liver Medical History liver transplant Surgical History liver transplant Surgical History kidney biopsy Hospitalization History liver transplant Hospitalization History Bob Jul 2017
--- OUTSIDE RECORDS SUMMARY | 2018-04-15 02:41 | XMS REPORT ---
Author Author LAZARUS EVERETT Organization [facility] Address [address] [place] [address] Care Team Providers Care Dubbing Machine Operator Name Role Phone LAZARUS EVERETT Unavailable PROBLEMS Type Condition ICD9-CM Code ZJY15-RG Code Onset Dates Condition Status SNOMED Code Problem Chronic obstructive pulmonary disease, unspecified COPD type J44.9 Active 28833430 Problem Reactive depression F32.9 Active 19230833 Problem History of liver transplant Z94.4 Active 272211663 Problem ZOSTAVAX DX V05.8 Active 97602113 Problem Essential hypertension I10 Active 01657186 Problem Sciatica of left side M54.32 Active 53821976 ALLERGIES No Information ENCOUNTERS Encounter Location Date Diagnosis [place] [id number] [place] [address] 41388- 7647 Oct, History of liver transplant Z94.4 [place] [address] 64050- 7939 Oct, History of liver transplant Z94.4 [place] [id number] [place] [address] 03386- 8145 Oct, Sciatica of left side M54.32 [place] [id number] [place] [address] 18783- 7268 Sep, [place] [id number] [place] [address] 28705- 7656 Sep, Sciatica of left side M54.32 and Flu-like symptoms R68.89 [place] [id number] [place] [address] 36863- 9073 Sep, Sciatica of left side M54.32 [place] [id number] [place] [address] 64260- 8618 Aug, History of liver transplant Z94.4 [facility] [address] [place] [address] 91036- 3046 Aug, Sciatica of left side M54.32 [facility] [id number] [place] [address] 19809- 0286 Jul, Generalized edema R60.1 [facility] [address] 83551- 8686 Jun, Sciatica of left side M54.32 [facility] [id number] [place] [address] 76554- 6886 Jun, Sciatica of left side M54.32 [facility] [id number] [place] [address] 25912- 4020 May, Sciatica of left side M54.32 ; Encounter for immunization Z23 ; History of liver transplant Z94.4 and Chronic obstructive pulmonary disease, unspecified COPD type J44.9 [facility] [id number] [place] [address] 72837- 2165 May, Sciatica of left side M54.32 [facility] [id number] [place] [address] 96553- 5120 Apr, Sciatica of left side M54.32 [facility] [id number] [place] [address] 38576- 3451 15 Mar, 2017 Sciatica of left side M54.32 [facility] [id number] [place] [address] 98349- 2417 07 Mar, 2017 Sciatica of left side M54.32 [facility] [id number] [place] [address] 72268- 2489 Feb, Sciatica of left side M54.32 [facility] [id number] [place] [address] 76627- 9242 Jan, [facility] [address] [place] [address]- 2156 Jan, Essential hypertension I10 and Reactive depression F32.9 [facility] [id number] [place] [address] 79348 2546 Jan, Sciatica of left side M54.32 [facility] [id number] [place] [address] 04508 2546 Jan, [facility] [id number] [place] [address] 33321 2546 Dec, [facility] [id number] [place] [address] 88586 2546 Dec, Sciatica of left side M54.32 [facility] [id number] [place] [address] 97943 2546 November, Sciatica of left side M54.32 [facility] [id number] [place] [address] 14995 2546 Oct, Sciatica of left side M54.32 [facility] [id number] [place] [address] 06836 2546 Sep, [facility] [id number] [place] [address] 68501 2546 Sep, Sciatica of left side M54.32 [facility] [id number] [place] [address] 60893 2546 Sep, Sciatica of left side M54.32 [facility] [id number] [place] [address] 03260 2546 Sep, Sciatica of left side M54.32 [facility] [id number] [place] [address] 61112 2546 Aug, Sciatica of left side M54.32 [facility] [id number] [address]- 2546 Aug, [facility] [id number] [address]- 9703 Jun, Sciatica of left side M54.32 [facility] [address] [address]- 2866 Jun, [facility] [address] [address]- 2546 Jun, [facility] [address] [place] [address] 02802- 9866 May, [facility] [id number] [place] [address] 59258 2547 May, [facility] [id number] [place] [address] 21858- 5334 Apr, [facility] [id number] [place] [address] 12639- 9603 Apr, Sciatica of left side M54.32 [facility] [id number] [place] [address] 90006- [phone] Mar, [facility] [id number] [place] [phone] Feb, [facility] [id number] [place] [address] [id number] Jan, [facility] [id number] [address] Jan, Sciatica of left side M54.32 [facility] [id number] [address] Dec, History of liver transplant Z94.4 and Sciatica of left side M54.32 [facility] [id number] [address] Oct, IMMUNIZATIONS No Known Immunizations SOCIAL HISTORY Never Assessed REASON FOR VISIT Controlled Med Refill PLAN OF CARE VITAL SIGNS MEDICATIONS Medication Instructions Dosage Frequency Start Date End Date Duration Status Oxycodone HCl 30 MG Orally every 4 hrs 1 tablet 4h 15 Mar, 2017 28 days Active RESULTS No Results PROCEDURES No Known procedures INSTRUCTIONS MEDICATIONS ADMINISTERED No Known Medications MEDICAL (GENERAL) HISTORY Type Description Date Medical History cirrhosis of liver Medical History liver transplant Surgical History liver transplant Surgical History kidney biopsy Hospitalization History liver transplant Hospitalization History [facility] Jul 2017
--- OUTSIDE RECORDS SUMMARY | 2018-04-15 02:41 | XMS REPORT ---
Author Author LAZARUS EVERETT Organization [facility] Address [address] [place] [address] Care Team Providers Care Cafe Team Member Name Role Phone LAZARUS EVERETT Unavailable PROBLEMS Type Condition ICD9-CM Code JLE42-CJ Code Onset Dates Condition Status SNOMED Code Problem Chronic obstructive pulmonary disease, unspecified COPD type J44.9 Active 42139035 Problem Reactive depression F32.9 Active 10788305 Problem History of liver transplant Z94.4 Active 868976158 Problem ZOSTAVAX DX V05.8 Active 09771875 Problem Essential hypertension I10 Active 96533057 Problem Sciatica of left side M54.32 Active 03436886 ALLERGIES No Information ENCOUNTERS Encounter Location Date Diagnosis [place] [id number] [place] [address] 48285- 2264 Oct, [place] [id number] [place] [address] 30518- 9125 Oct, History of liver transplant Z94.4 [place] [id number] [place] [address] 24581- 8555 Oct, Sciatica of left side M54.32 [place] [id number] [place] [address] 78041- 7716 Sep, [place] [id number] [place] [address] 09235- 6822 Sep, Sciatica of left side M54.32 and Flu-like symptoms R68.89 [place] [id number] [place] [address] 77887- 8821 Sep, Sciatica of left side M54.32 [place] [id number] [place] [address] 92743- 7175 Aug, History of liver transplant Z94.4 [facility] [address] [place] [address] 04916- 9788 Aug, Sciatica of left side M54.32 [facility] [id number] [place] [address] 23849- 9236 Jul, Generalized edema R60.1 [facility] [id number] [place] [address] 47485- 7866 Jun, Sciatica of left side M54.32 [facility] [id number] [place] [address] 92722- 2924 Jun, Sciatica of left side M54.32 [facility] [id number] [place] [address] 81717- 0840 May, Encounter for immunization Z23 ; Sciatica of left side M54.32 ; History of liver transplant Z94.4 and Chronic obstructive pulmonary disease, unspecified COPD type J44.9 [facility] [id number] [place] [address] 77700- 5667 May, Sciatica of left side M54.32 [facility] [id number] [place] [address] 46367- 6134 Apr, Sciatica of left side M54.32 [facility] [id number] [place] [address] 66793- 1736 15 Mar, 2017 Sciatica of left side M54.32 [facility] [id number] [place] [address] 62699- 2040 07 Mar, 2017 Sciatica of left side M54.32 [facility] [id number] [place] [address] 72723- 3346 Feb, Sciatica of left side M54.32 [facility] [id number] [place] [address] 41298- 4682 Jan, [facility] [address] 91638- 3770 Jan, Essential hypertension I10 and Reactive depression F32.9 [facility] [id number] [place] [address] 56062 2546 Jan, Sciatica of left side M54.32 [facility] [id number] [place] [address] 72018 2546 Jan, [facility] [id number] [place] [address] 06582 2546 Dec, [facility] [id number] [place] [address] 46555 2546 Dec, Sciatica of left side M54.32 [facility] [id number] [place] [address] 43134 2546 November, Sciatica of left side M54.32 [facility] [id number] [place] [address] 10271- 0606 Oct, Sciatica of left side M54.32 [facility] [id number] [place] [address] 67898 2546 Sep, [facility] [id number] [place] [address] 71982 2546 Sep, Sciatica of left side M54.32 [facility] [id number] [place] [address] 98661 2546 Sep, Sciatica of left side M54.32 [facility] [id number] [place] [address] 26245 2546 Sep, Sciatica of left side M54.32 [facility] [id number] [place] [address] 42170 2546 Aug, Sciatica of left side M54.32 [facility] [id number] [address] 2546 Aug, [facility] [id number] [place] [address] 52054- 9436 Jun, Sciatica of left side M54.32 [facility] [address] [address] 2546 Jun, [facility] [address] [address]- 2546 Jun, [facility] [address] [address] 2546 May, [facility] [id number] [place] [address] 21758- 2546 May, [facility] [address] [place] [address] 12181- 2566 Apr, [facility] [id number] [place] [address] 01226- 2546 Apr, Sciatica of left side M54.32 [facility] [id number] [place] [address] 97224- 9466 Mar, [facility] [address] [place] [address] 06918- 3952 Feb, [facility] [address] [place] [address] 29803- 8456 Jan, [facility] [address] [address]- 0666 Jan, Sciatica of left side M54.32 [facility] [address] [address]- 0649 Dec, History of liver transplant Z94.4 and Sciatica of left side M54.32 [facility] [address] [place] [address]- 0756 Oct, IMMUNIZATIONS No Known Immunizations SOCIAL HISTORY Never Assessed REASON FOR VISIT Oxycontin- 03/23 PLAN OF CARE VITAL SIGNS MEDICATIONS Medication Instructions Dosage Frequency Start Date End Date Duration Status OxyContin 80 MG Orally 3 times a day 1 tablet 8h 14 Mar, 2017 28 days Active RESULTS No Results PROCEDURES No Known procedures INSTRUCTIONS MEDICATIONS ADMINISTERED No Known Medications MEDICAL (GENERAL) HISTORY Type Description Date Medical History cirrhosis of liver Medical History liver transplant Surgical History liver transplant Surgical History kidney biopsy Hospitalization History liver transplant Hospitalization History [facility] Jul 2017
--- OUTSIDE RECORDS SUMMARY | 2018-04-15 02:41 | XMS REPORT ---
Author Author TEREZA JAVIER Organization [facility] Address [address] [place] [address] Care Team Providers Care Associate Financial Planner Name Role Phone TEREZA JAVIER Unavailable PROBLEMS Type Condition ICD9-CM Code TES34-FW Code Onset Dates Condition Status SNOMED Code Problem Chronic obstructive pulmonary disease, unspecified COPD type J44.9 Active 59849483 Problem Reactive depression F32.9 Active 05521000 Problem History of liver transplant Z94.4 Active 306690342 Problem ZOSTAVAX DX V05.8 Active 22238792 Problem Essential hypertension I10 Active 46789274 Problem Sciatica of left side M54.32 Active 85627040 ALLERGIES No Information ENCOUNTERS Encounter Location Date Diagnosis [place] [id number] [place] [address] 95145- 5378 Oct, [place] [id number] [place] [address] 62109- 6646 Oct, History of liver transplant Z94.4 [place] [id number] [place] [address] 25278- 5832 Oct, Sciatica of left side M54.32 [place] [id number] [place] [address] 05317- 2918 Sep, [place] [id number] [place] [address] 32134- 3243 Sep, Sciatica of left side M54.32 and Flu-like symptoms R68.89 [place] [id number] [place] [address] 73298- 6523 Sep, Sciatica of left side M54.32 [place] [id number] [place] [address] 27917- 4988 Aug, History of liver transplant Z94.4 [facility] [id number] [place] [address] 84718- 6776 Aug, Sciatica of left side M54.32 [facility] [id number] [place] [address] 57195- 1863 Jul, Generalized edema R60.1 [facility] [id number] [place] [address] 92772- 5516 Jun, Sciatica of left side M54.32 [facility] [id number] [place] [address] 78353- 8475 Jun, Sciatica of left side M54.32 [facility] [id number] [place] [address] 96320- 3890 May, Encounter for immunization Z23 ; Sciatica of left side M54.32 ; History of liver transplant Z94.4 and Chronic obstructive pulmonary disease, unspecified COPD type J44.9 [facility] [id number] [place] [address] 69928- 1008 May, Sciatica of left side M54.32 [facility] [id number] [place] [address] 15598- 2888 Apr, Sciatica of left side M54.32 [facility] [id number] [place] [address] 10805- 8042 15 Mar, 2017 Sciatica of left side M54.32 [facility] [id number] [place] [address] 58322- 6381 07 Mar, 2017 Sciatica of left side M54.32 [facility] [id number] [place] [address] 53687- 6532 Feb, Sciatica of left side M54.32 [facility] [id number] [place] [address] 57554- 9847 Jan, [facility] [address] 79127- 4715 Jan, Essential hypertension I10 and Reactive depression F32.9 [facility] [id number] [place] [address] 16604- 8156 Jan, Sciatica of left side M54.32 [facility] [id number] [place] [address] 55096 2546 Jan, [facility] [id number] [place] [address] 28556- 3016 Dec, [facility] [id number] [place] [address] 53962 2546 Dec, Sciatica of left side M54.32 [facility] [id number] [place] [address] 38220- 3236 November, Sciatica of left side M54.32 [facility] [address] [place] [address] 83494- 3716 Oct, Sciatica of left side M54.32 [facility] [address] [place] [address] 44441 2546 Sep, [facility] [id number] [place] [address] 67854- 2546 Sep, Sciatica of left side M54.32 [facility] [id number] [place] [address] 25134 2546 Sep, Sciatica of left side M54.32 [facility] [id number] [place] [address] 56569 2546 Sep, Sciatica of left side M54.32 [facility] [id number] [place] [address] 78353 2546 Aug, Sciatica of left side M54.32 [facility] [id number] [place] [address] 46469- 2546 Aug, [facility] [id number] [place] [address] 964388- 4398 Jun, Sciatica of left side M54.32 [facility] [address] [address]- 0776 Jun, [facility] [address], [place] [address]- 2546 Jun, [facility] [address] [address]- 6626 May, [facility] [id number] [place] [address] 64396- 2546 May, [facility] [address] [place] [address] 75215- 9674 Apr, [facility] [id number] [place] [address] 59257- 8226 Apr, Sciatica of left side M54.32 [facility] [id number] [place] [address] 83851- 3606 Mar, [facility] [address] [address]- 7272 Feb, [facility] [address] [place] [address] 07224- 3388 Jan, [facility] [address] [address]- 5042 Jan, Sciatica of left side M54.32 [facility] [address] [address]- 1153 Dec, History of liver transplant Z94.4 and Sciatica of left side M54.32 [facility] [address], [place] [address]- 1564 Oct, IMMUNIZATIONS No Known Immunizations SOCIAL HISTORY Never Assessed REASON FOR VISIT Oxycodone and Oxycontin 01/26 PLAN OF CARE VITAL SIGNS MEDICATIONS Medication Instructions Dosage Frequency Start Date End Date Duration Status Oxycodone HCl 30 MG Orally every 4 hrs 1 tablet Jan, 28 days Active OxyContin 80 MG Orally 3 times a day 1 tablet 8h Jan, 28 days Active RESULTS No Results PROCEDURES No Known procedures INSTRUCTIONS MEDICATIONS ADMINISTERED No Known Medications MEDICAL (GENERAL) HISTORY Type Description Date Medical History cirrhosis of liver Medical History liver transplant Surgical History liver transplant Surgical History kidney biopsy Hospitalization History liver transplant Hospitalization History [facility] Jul 2017
--- OUTSIDE RECORDS SUMMARY | 2018-04-15 02:41 | XMS REPORT ---
Author Author TEREZA JAVIER Organization [facility] Address [address] [place] [address] Care Team Providers Care Territory Sales Manager Medical Name Role Phone TEREZA JAVIER Unavailable PROBLEMS Type Condition ICD9-CM Code WML55-GD Code Onset Dates Condition Status SNOMED Code Problem Chronic obstructive pulmonary disease, unspecified COPD type J44.9 Active 82722827 Problem Reactive depression F32.9 Active 07598974 Problem History of liver transplant Z94.4 Active 182421554 Problem ZOSTAVAX DX V05.8 Active 67360739 Problem Essential hypertension I10 Active 81798913 Problem Sciatica of left side M54.32 Active 95650975 ALLERGIES No Information ENCOUNTERS Encounter Location Date Diagnosis [place] [id number] [place] [address] 08500- 8653 Oct, [place] [id number] [place] [address] 23767- 0808 Sep, [place] [id number] [place] [address] 52585- 5229 Sep, Sciatica of left side M54.32 [place] [id number] [place] [address] 57356- 4541 Aug, History of liver transplant Z94.4 [place] [id number] [place] [address] 09592- 1169 Aug, Sciatica of left side M54.32 [place] [id number] [place] [address] 71023- 9350 Jul, Generalized edema R60.1 [place] [id number] [place] [address] 81882- 6777 Jun, Sciatica of left side M54.32 [facility] [id number] [place] [address] 35670- 9195 Jun, Sciatica of left side M54.32 [facility] [address] 70645- 5866 May, Sciatica of left side M54.32 ; Encounter for immunization Z23 ; History of liver transplant Z94.4 and Chronic obstructive pulmonary disease, unspecified COPD type J44.9 [facility] [address] 93803- 3506 May, Sciatica of left side M54.32 [facility] [address] 07585- 3044 Apr, Sciatica of left side M54.32 [facility] [address] 44881- 4483 15 Mar, 2017 Sciatica of left side M54.32 [facility] [address] 65977- 0444 Mar, Sciatica of left side M54.32 [facility] [address] 07855- 3115 Feb, Sciatica of left side M54.32 [facility] [id number] [place] [address] 34179- 1107 Jan, [facility] [id number] [place] [address] 45792- 1256 Jan, Essential hypertension I10 and Reactive depression F32.9 [facility] [id number] [place] [address] 87888- 7759 Jan, Sciatica of left side M54.32 [facility] [id number] [place] [address] 24131- 4201 Jan, [facility] [id number] [place] [address] 79717- 7725 Dec, [place] [address] [place] [address] 2546 Dec, Sciatica of left side M54.32 [facility] [address] [place] [place] [address]- 2546 November, Sciatica of left side M54.32 [facility] [address] [place] [place] [address]- 2546 Oct, Sciatica of left side M54.32 [facility] [id number] [place] [place] [address]- 2546 Sep, [facility] [id number] [place] [address], [place] [address]- 2546 Sep, Sciatica of left side M54.32 [facility] [address] [place] [place] [address]- 2546 Sep, Sciatica of left side M54.32 [facility] [address] [place] [place] [address]- 2546 Sep, Sciatica of left side M54.32 [facility] [address] [place] [place] [address] 2546 Aug, Sciatica of left side M54.32 [facility] [address] [place] [place] [address]- 2546 Aug, [facility] [address] [address]- 2546 Jun, Sciatica of left side M54.32 [facility] [address] [place] [place] [address]- 2546 Jun, [facility] [address] [place] [place] [address]- 2546 Jun, [facility] [address] [place] [place] [address]- 2546 May, [facility] [id number] [address]- 0022 May, [facility] [address] [address]- 7250 Apr, [facility] [address] [place] [address] 42343- 2920 Apr, Sciatica of left side M54.32 [facility] [id number] [place] [address] 57154- 7719 Mar, [facility] [address] [place] [address] 84986- 6007 Feb, [facility] [id number] [place] [address] 65431- 4231 Jan, [facility] [id number] [place] [address] 995249- 0661 Jan, Sciatica of left side M54.32 [facility] [id number] [place] [address] 24862- 2607 Dec, History of liver transplant Z94.4 and Sciatica of left side M54.32 [facility] [address] [place] [address] 97973- 1474 Oct, IMMUNIZATIONS No Known Immunizations SOCIAL HISTORY Never Assessed REASON FOR VISIT Medical records request PLAN OF CARE VITAL SIGNS MEDICATIONS Unknown Medications RESULTS No Results PROCEDURES No Known procedures INSTRUCTIONS MEDICATIONS ADMINISTERED No Known Medications MEDICAL (GENERAL) HISTORY Type Description Date Medical History cirrhosis of liver Medical History liver transplant Surgical History liver transplant Surgical History kidney biopsy Hospitalization History liver transplant Hospitalization History Bob Jul 2017
--- OUTSIDE RECORDS SUMMARY | 2018-04-15 02:42 | XMS REPORT ---
Author Author TEREZA JAVIER Organization [facility] Address [address] [place] [address] Care Team Providers Care Prosthodontist/Educator Name Role Phone TEREZA JAVIER Unavailable PROBLEMS Type Condition ICD9-CM Code DST08-EL Code Onset Dates Condition Status SNOMED Code Problem Chronic obstructive pulmonary disease, unspecified COPD type J44.9 Active 41304022 Problem Reactive depression F32.9 Active 29485615 Problem History of liver transplant Z94.4 Active 095923996 Problem ZOSTAVAX DX V05.8 Active 89009523 Problem Essential hypertension I10 Active 78388362 Problem Sciatica of left side M54.32 Active 63185431 ALLERGIES No Information ENCOUNTERS Encounter Location Date Diagnosis [facility] [id number] [place] [address] [phone] Oct, [facility] [id number] [place] [address] 96235- 2237 Aug, History of liver transplant Z94.4 [facility] [id number] [place] [address] 33305- 8011 Aug, Sciatica of left side M54.32 [facility] [id number] [place] [address] 95700- 7154 Jul, Generalized edema R60.1 [facility] [id number] [place] [address] 41629- 5937 Jun, Sciatica of left side M54.32 [facility] [id number] [place] [address] 69519- 0453 Jun, Sciatica of left side M54.32 [facility] [id number] [place] [address] 62022- 3313 May, Sciatica of left side M54.32 ; Encounter for immunization Z23 ; History of liver transplant Z94.4 and Chronic obstructive pulmonary disease, unspecified COPD type J44.9 [facility] [id number] [place] [address] 94667- 6396 May, Sciatica of left side M54.32 [facility] [id number] [place] [address] 63444- 8656 Apr, Sciatica of left side M54.32 [facility] [id number] [place] [address] 33069- 3098 15 Mar, 2017 Sciatica of left side M54.32 [facility] [id number] [place] [address] [phone]- 0796 07 Mar, 2017 Sciatica of left side M54.32 [facility] [id number] [place] [address] 79998- 4151 Feb, Sciatica of left side M54.32 [facility] [id number] [place] [address] 49526- 4006 Jan, [facility] [id number] [place] [address] 58873- 7670 Jan, Essential hypertension I10 and Reactive depression F32.9 [facility] [id number] [place] [address] 26643- 1182 Jan, Sciatica of left side M54.32 [facility] [id number] [place] [address] 86847- 3561 Jan, [facility] [id number] [place] [address] 76999- 7426 Dec, [facility] [id number] [place] [address] 16867- 6658 Dec, Sciatica of left side M54.32 [facility] [id number] [place] [address] 56997- 3237 November, Sciatica of left side M54.32 [facility] [id number] [place] [address] 2546 Oct, Sciatica of left side M54.32 [facility] [place] [id number] [place] [address], [place] [address] Sep, [facility] [id number] [place] [address], [place] [address] 2546 Sep, Sciatica of left side M54.32 [facility] [place] [facility] [id number] [place] [address], [place] [address]- 2546 Sep, Sciatica of left side M54.32 [facility] [place] [facility] [id number] [place] [address], [place] [address]- 2546 Sep, Sciatica of left side M54.32 [facility] [id number] [place] [address], [place] [address] 2546 Aug, Sciatica of left side M54.32 [facility] [place] [facility] [id number] [place] [address] 2546 Aug, [facility] [id number] [place] [address], [place] [address] 2546 Jun, Sciatica of left side M54.32 [facility] [id number] [place] [address] 2546 Jun, [facility] [id number] [place] [address] Jun, [facility] [id number] [place] [address] 2546 May, [facility] [id number] [place] [address], [place] [address]- 2546 May, [facility] [id number] [place] [address] 2546 14 Apr, 2016 [facility] [id number] [place] [address] 96036- 8756 Apr, Sciatica of left side M54.32 [facility] [address] [address] 2546 Mar, [facility] [id number], [place] [address] 2546 Feb, [facility] [address], [place] [address] 2546 Jan, [facility] [address] [address] 2546 Jan, Sciatica of left side M54.32 [facility] [address], [place] [address] 2546 Dec, History of liver transplant Z94.4 and Sciatica of left side M54.32 [facility] [address] [address] Oct, IMMUNIZATIONS No Known Immunizations SOCIAL HISTORY Never Assessed REASON FOR VISIT COPD PLAN OF CARE VITAL SIGNS MEDICATIONS Medication Instructions Dosage Frequency Start Date End Date Duration Status ProAir HFA 108 (90 Base) MCG/ACT Inhalation every 4 hrs 2 puffs as needed Dec, 0 days Active RESULTS No Results PROCEDURES No Known procedures INSTRUCTIONS MEDICATIONS ADMINISTERED No Known Medications MEDICAL (GENERAL) HISTORY Type Description Date Medical History cirrhosis of liver Medical History liver transplant Surgical History liver transplant Surgical History kidney biopsy Hospitalization History liver transplant Hospitalization History Bob Jul 2017
[2018-04-15 03:16] LABS: BASOPHILS % (AUTO) 0 % (0-10); EOSINOPHILS # (AUTO) 0.3 10^3/uL (0.0-0.3); EOSINOPHILS % (AUTO) 2 % (0-10); LYMPHOCYTES # (AUTO) 2.4 X 10^3 (1.0-4.0); LYMPHOCYTES % (AUTO) 16 % (12-44); MEAN CORPUSCULAR HEMOGLOBIN 32 PG (25-34); MEAN CORPUSCULAR HGB CONC 34 G/DL (32-36); MEAN CORPUSCULAR VOLUME 95 FL (80-99); MEAN PLATELET VOLUME 11.4 FL (7.4-10.4); MONOCYTES % (AUTO) 7 % (0-12); NEUTROPHILS # (AUTO) 11.2 X 10^3 (1.8-7.8); NEUTROPHILS % (AUTO) 76 % (42-75); PLATELET COUNT 133 10^3/uL (130-400); RED CELL DISTRIBUTION WIDTH 14.9 % (10.0-14.5); WHITE BLOOD COUNT 14.8 10^3/uL (4.3-11.0)
[2018-04-15 03:24] LABS: HEMOGLOBIN 6.8 G/DL (13.3-17.7)
[2018-04-15 03:25] LABS: HEMATOCRIT 20 % (40-54); INR 1.4 (0.8-1.4); PROTHROMBIN TIME PATIENT 17.5 SEC (12.2-14.7)
[2018-04-15 03:33] LABS: ALBUMIN 1.9 GM/DL (3.2-4.5); BILIRUBIN,TOTAL 0.6 MG/DL (0.1-1.0); CALCIUM 7.3 MG/DL (8.5-10.1); CREATININE SERUM 3.07 MG/DL (0.60-1.30); POTASSIUM 6.2 MMOL/L (3.6-5.0); TOTAL PROTEIN 4.5 GM/DL (6.4-8.2)
--- NOTE | 2018-04-15 03:39 | ED Abdominal Pain ---
General Chief Complaint: Abdominal/GI Problems Stated Complaint: RECTAL BLEEDING,VOMITING Nursing Triage Note: BLOODY STOOL, N/V/D, ABDOMINAL PAIN Sepsis Screen: No Definite Risk Source of Information: Patient, EMS, Family, Old Records Exam Limitations: No Limitations History of Present Illness Date Seen by Provider: Apr 15, 2018 Time Seen by Provider: 02:35 Initial Comments This 62-year-old man with known liver a history of renal failure presents to the emergency room with abdominal pain and rectal bleeding. His reports he has had dark stools for the past several days but today he had a grossly bloody stools. He also had an episode of near syncope with tremoring around the time he had a large bloody bowel movement. She reports he has had nausea, vomiting, and diarrhea for about one week patient was seen at [facility] on April 11. CT of the abdomen was performed and he was dismissed home. Symptoms have worsened since that time. As have other family members. He has had trouble keeping his medications down during that time it is likely dehydrated. Patient has a history of liver transplant and is on Prograf. When patient's arrives she provides further history including history of banded esophageal varices. Patient's blood pressure was marginal in route with a systolic blood pressure of 90. states his pain is essentially unchanged since he was assessed at [facility] on April 11, but his pain is uncontrolled due to inability to keep his medications down. Allergies and Home Medications Allergies Coded Allergies: Heparin Analogues (Verified Allergy, Mild, 07/22/15) codeine (Verified Allergy, Unknown, TAKES OXYCODONE AT HOME, 07/22/15) fentanyl (Verified Allergy, Unknown, 07/22/15) sumatriptan (Verified Allergy, Unknown, 07/22/15) zolpidem (Verified Allergy, Unknown, 07/22/15) Uncoded Allergies: NSADS (Allergy, Unknown, 04/10/14) CONTRAST DYE/RADIOLOGY DYE (Adverse Reaction, Unknown, 04/10/14) DUE TO KIDNEY FUNCTION Home Medications Budesonide/Formoterol Fumarate 10.2 Gm Hfa.aer.ad, 2 PUFF IH BID PRN for SHORTNESS OF BREATH, (Reported) Cholecalciferol (Vitamin D3) 2,000 Unit Capsule, 2,000 UNIT PO BID, (Reported) Diazepam 10 Mg Tablet, 10 MG PO HS PRN for ANXIETY, (Reported) Lactulose 10 Gm/15 Ml Solution, 45 ML PO QID PRN for HIGH AMMONIA LEVELS, ( Reported) LAST FILLED #[id number] ML 10-17-16 Magnesium Oxide 500 Mg Tablet, 500 MG PO BID, (Reported) Methylphenidate HCl 10 Mg Tablet, 10 MG PO DAILY, (Reported) Methylphenidate HCl 10 Mg Tablet, 10 MG PO TID PRN for ENERGY, (Reported) Nadolol 40 Mg Tablet, 40 MG PO HS, (Reported) Oxycodone HCl 80 Mg Tab.er.12h, 80 MG PO TID PRN for PAIN-SEVERE, (Reported) Oxycodone HCl 30 Mg Tablet, 30 MG PO Q4H PRN for PAIN-BREAKTHROUGH, (Reported) Potassium Chloride 10 Meq Tablet.er, 10 MEQ PO BID, (Reported) LAST FILLED #60 02-13-17 Rifaximin 550 Mg Tablet, 550 MG PO BID, (Reported) LAST FILLED #60 02-13-17 Sennosides/Docusate Sodium 1 Each Tablet, 2 TAB PO BID, (Reported) Tacrolimus 0.5 Mg Capsule, 0.5 MG PO BID, (Reported) LAST FILLED #90 02-13-17 Patient Home Medication List Home Medication List Reviewed: Yes Review of Systems Review of Systems Constitutional: chills EENTM: No Symptoms Reported Respiratory: No Symptoms Reported Cardiovascular: See HPI Gastrointestinal: See HPI Genitourinary: No Symptoms Reported Musculoskeletal: no symptoms reported Skin: no symptoms reported Psychiatric/Neurological: See HPI Endocrine: No Symptoms Reported Hematologic/Lymphatic: No Symptoms Reported Past Wcraqse-Moxcih-Wrktsv Hx Past Med/Social Hx: Reviewed and Corrections made Patient Social History Alcohol Use: Denies Use Recreational Drug Use: No Smoking Status: Current Everyday Smoker Type Used: Cigarettes 2nd Hand Smoke Exposure: Yes Recent Foreign Travel: No Contact w/Someone Who Travel: No Recent Infectious Disease Expo: No Recent Hopitalizations: No Immunizations Up To Date Tetanus Booster (TDap): Less than 5yrs PED Vaccines UTD: No Date of Pneumonia Vaccine: May 09, 2015 Date of Influenza Vaccine: Jul 22, 2015 Seasonal Allergies Seasonal Allergies: No Past Medical History Surgeries: Yes (LIVER TRANSPLANT 2004. BROKEN LEFT ARM 2011. PORT PLACEMENT. LIVER SHUNT) Liver Transplant Respiratory: Yes Asthma, COPD, Emphysema Currently Using CPAP: No Currently Using BIPAP: No Cardiac: Yes (AORTIC ANEURYSM ) Aneurysm Neurological: No Reproductive Disorders: No Sexually Transmitted Disease: No HIV/AIDS: No Genitourinary: Yes Renal Failure Gastrointestinal: Yes (chronic abdominal pain) Liver Disease/Jaundice, Hepatitis, Gall Bladder Disease Musculoskeletal: Yes ( right dislocated shoulder, broken arm age 13 & 3 years ago , siatica nerve) Arthritis, Fractures Endocrine: No HEENT: No Loss of Vision: Denies Hearing Impairment: Hard of Hearing Cancer: Yes Liver Psychosocial: Yes Anxiety, Depression Integumentary: Yes (BRUISES EASY) Blood Disorders: No Adverse Reaction/Blood Tranf: No Family Medical History Not obtainable due to adoption Physical Exam Vital Signs Vital Signs - First Documented 04/15/18 03:00 Temp 98.8 Pulse 53 Resp 18 B/P (MAP) 108/58 (75) Pulse Ox 100 O2 Delivery Room Air Capillary Refill : Less Than 3 Seconds Height/Weight/BMI Height: 6'0.00" Weight: 165lbs. 3.0oz. 74.414546pt; 24.9 BMI Method:Stated General Appearance: WD/WN, moderate distress HEENT: PERRL/EOMI, normal ENT inspection, other (oropharynx dry) Neck: supple, normal inspection Respiratory: lungs clear, normal breath sounds, no respiratory distress, no accessory muscle use Cardiovascular: regular rate, rhythm, no edema, no murmur Gastrointestinal: normal bowel sounds, soft, tenderness (tenderness throughout the lower and right side of the abdomen.) Extremities: normal inspection, no pedal edema Neurologic/Psychiatric: other (somnolent and mentation sluggish. Moves all 4 extremities. Alert when aroused and answers questions appropriately.) Skin: normal color, warm/dry Focused Exam Lactate Level 04/15/18 03:30: Lactic Acid Level 1.27 Lactic Acid Level Laboratory Tests Test 04/15/18 03:30 Lactic Acid Level 1.27 MMOL/L (0.50-2.00) Progress/Results/Core Measures Results/Orders Lab Results Laboratory Tests Test 04/15/18 03:00 04/15/18 03:30 Range/Units White Blood Count 14.8 H 4.3-11.0 10^3/uL Red Blood Count 2.10 L 4.35-5.85 10^6/uL Hemoglobin 6.8 *L 13.3-17.7 G/DL Hematocrit 20 *L 40-54 % Mean Corpuscular Volume 95 80-99 FL Mean Corpuscular Hemoglobin 32 25-34 PG Mean Corpuscular Hemoglobin Concent 34 32-36 G/DL Red Cell Distribution Width 14.9 H 10.0-14.5 % Platelet Count 133 130-400 10^3/uL Mean Platelet Volume 11.4 H 7.4-10.4 FL Neutrophils (%) (Auto) 76 H 42-75 % Lymphocytes (%) (Auto) 16 12-44 % Monocytes (%) (Auto) 7 0-12 % Eosinophils (%) (Auto) 2 0-10 % Basophils (%) (Auto) 0 0-10 % Neutrophils # (Auto) 11.2 H 1.8-7.8 X 10^3 Lymphocytes # (Auto) 2.4 1.0-4.0 X 10^3 Monocytes # (Auto) 1.0 0.0-1.0 X 10^3 Eosinophils # (Auto) 0.3 0.0-0.3 10^3/uL Basophils # (Auto) 0.0 0.0-0.1 10^3/uL Neutrophils % (Manual) 79 % Lymphocytes % (Manual) 14 % Monocytes % (Manual) 3 % Eosinophils % (Manual) 2 % Band Neutrophils 2 % Hypochromasia SLIGHT Rouleau SLIGHT Prothrombin Time 17.5 H 12.2-14.7 SEC INR Comment 1.4 0.8-1.4 Activated Partial Thromboplast Time 33 24-35 SEC Sodium Level 138 135-145 MMOL/L Potassium Level 6.2 H 3.6-5.0 MMOL/L Chloride Level 113 H 98-107 MMOL/L Carbon Dioxide Level 18 L 21-32 MMOL/L Anion Gap 7 5-14 MMOL/L Blood Urea Nitrogen 56 H 7-18 MG/DL Creatinine 3.07 H 0.60-1.30 MG/DL Estimat Glomerular Filtration Rate 21 BUN/Creatinine Ratio 18 Glucose Level 121 H 70-105 MG/DL Calcium Level 7.3 L 8.5-10.1 MG/DL Corrected Calcium 9.0 8.5-10.1 MG/DL Total Bilirubin 0.6 0.1-1.0 MG/DL Aspartate Amino Transf (AST/SGOT) 10 5-34 U/L Alanine Aminotransferase (ALT/SGPT) 8 0-55 U/L Alkaline Phosphatase 62 40-136 U/L Ammonia 194 H 11-32 UMOL/L Total Protein 4.5 L 6.4-8.2 GM/DL Albumin 1.9 L 3.2-4.5 GM/DL Lipase 20 8-78 U/L Lactic Acid Level 1.27 0.50-2.00 MMOL/L My Orders Orders - ANABELL PRITCHETT MD Ammonia (04/15/18 02:41) Cbc With Automated Diff (04/15/18 02:41) Comprehensive Metabolic Panel (04/15/18 02:41) Lipase (04/15/18 02:41) Protime With Inr (04/15/18 02:41) Partial Thromboplastin Time (04/15/18 02:41) Saline Lock/Iv-Start (04/15/18 02:41) Ua Culture If Indicated (04/15/18 02:44) Manual Differential (04/15/18 03:00) Red Cells Leukocytes Reduced (04/15/18 03:28) Type And Screen (04/15/18 03:28) Blood Culture (04/15/18 03:31) Lactic Acid Analyzer (04/15/18 03:31) Ns Iv 1000 Ml (Sodium Chloride 0.9%) (04/15/18 03:54) Pantoprazole Injection (Protonix Injecti (04/15/18 04:15) Ceftriaxone For Iv Use (Rocephin For I (04/15/18 04:30) Fresh Frozen Plasma (04/15/18 04:18) Chest 1 View, Ap/Pa Only (04/15/18 04:21) Morphine Injection (Morphine Injection (04/15/18 05:00) Medications Given in ED Current Medications Medications Dose Ordered Sig/Lindsay Route Start Time Stop Time Status Last Admin Dose Admin Ceftriaxone Sodium 1000 mg/ Sodium Chloride 50 ml @ 100 mls/hr ONCE ONCE IV 04/15/18 04:30 04/15/18 05:00 DC 04/15/18 04:21 100 MLS/HR Morphine Sulfate 4 mg ONCE ONCE IVP 04/15/18 05:00 04/15/18 05:01 DC 04/15/18 05:17 4 MG Pantoprazole 80 mg ONCE ONCE IV 04/15/18 04:15 10/8/18 04:16 DC 04/15/18 04:21 80 MG Sodium Chloride 1,000 ml @ 0 mls/hr Q0M ONCE IV 04/15/18 03:54 04/15/18 03:56 DC 04/15/18 03:45 1,000 MLS/HR Vital Signs/I&O 04/15/18 04/15/18 04/15/18 03:00 05:00 05:17 Temp 98.8 98.8 98.8 Pulse 53 48 Resp 18 B/P (MAP) 108/58 (75) Pulse Ox 100 O2 Delivery Room Air Blood Pressure Mean: 75 Progress Progress Note #1: Time: 03:57 Progress Note Patient did not exhibit any active bleeding after arrival to the ER but he did develop hypotension. He is presently receiving his second liter of IV saline and blood pressure has rebounded to 111/53. Patient has had some bradycardia with heart rate in the upper 40s. He is still responsive and answers questions. Patient has severe anemia in the context of hypotension. Four units of blood have been ordered for crossmatch. We intend to administer 2 units of blood. Have placed a call to [facility] in anticipation of transfer. I'm awaiting a call back. Patient's ammonia level is markedly elevated. Progress Note #2: Time: 04:22 Progress Note Case was discussed with Dr. Hollins, hospitalist at [facility]. He is deferring admission to the drapery cutter machine due to presence of esophageal varices and severe anemia. I discussed the case with Dr. Dunn, drapery cutter machine at [facility]. He excepts the transfer and agrees with transfusion. He also requests a gram of Rocephin be administered. Blood cultures have been obtained. I am presently awaiting a room assignment from [facility]. Blood pressure is stable at 110/52. Blood is now ready and transfusion will be started promptly. A unit of FFP will also be given. Progress Note #3: Time: 05:11 Progress Note EMS has been dispatched for transfer. Patient is receiving his second unit of PRBC as well as a unit of FFP. Systolic blood pressure is no 142/65. Patient is requesting pain medication and will be given morphine 4 mg IV. Patient has also received Rocephin 1 g and Protonix 80 mg. Patient has had stable bradycardia in the 45-55 bpm range throughout the ER stay Diagnostic Imaging Diagonstic Imaging: Xray Plain Films/CT/US/NM/MRI: chest Comments Chest x-ray viewed by me. Report not yet available. No acute abnormalities appreciated. Departure Impression Primary Impression: Severe anemia Additional Impressions: Hepatic encephalopathy Hypotension Qualified Codes: I95.89 - Other hypotension; E86.1 - Hypovolemia Hyperkalemia Acute on chronic renal failure Qualified Codes: N17.9 - Acute kidney failure, unspecified; N18.9 - Chronic kidney disease, unspecified Leukocytosis Qualified Codes: D72.829 - Elevated white blood cell count, unspecified Bradycardia Disposition: XFER SHT-TRM HOSP Condition: Improved Transfer Time Spoke to Accepting Phy: 04:00 Transfer Progress Notes Patient accepted to the [facility] ICU by Dr. Zimmerman. Transfer Time: 05:40 Transfer Facility: [facility] Method of Transfer: EMS Departure-Patient Inst. Referrals: TEREZA JAIVER MD (PCP/Family) Primary Care Physician ANABELL PRITCHETT MD Apr 15, 2018 03:39
[2018-04-15] MEDS ORDERED: NS IV 1000 ML 1,000 ML IV ONE (03:54)
[2018-04-15] MEDS ORDERED: PANTOPRAZOLE 40 MG (PROTONIX) VIAL IV ONE (04:15)
[2018-04-15] MEDS ORDERED: cefTRIAXone FOR IV USE 1,000 MG in NS (IVPB) 50 ML IV ONE (04:30)
[2018-04-15 04:35] LABS: BAND NEUTROPHILS 2 %; EOSINOPHILS % (MANUAL) 2 %; LYMPHOCYTES % (MANUAL) 14 %; MONOCYTES % (MANUAL) 3 %; NEUTROPHILS % (MANUAL) 79 %
[2018-04-15 04:36] LABS: HYPOCHROMASIA SLIGHT; ROULEAUX SLIGHT
[2018-04-15] MEDS ORDERED: morphine INJ 10 MG/ML 1ML (SYR OR VIAL) IVP ONE (05:00)
[2018-04-15 05:40] VITALS: BP 147/82
--- NOTE | 2018-04-15 06:42 | Diagnostic Imaging Report ---
INDICATION: Nausea, vomiting, diarrhea. TECHNIQUE: Single frontal view of the chest. COMPARISON: 07/16/2017 FINDINGS: Lung volumes are large. No focal consolidation is seen. There is biapical pleural scarring. The left costophrenic angle is incompletely included but no large pleural effusion or pneumothorax is seen. The cardiac silhouette is upper normal in size. No acute osseous abnormality is seen. IMPRESSION: 1. Large lung volumes with no acute pulmonary abnormality seen. Dictated by: Dictated on workstation # [id number]
== END 2018-04-15 05:40 | disposition short-term general hospital (02) ==
LOC: EDUNIT# 02:31 → ER 02:33
DX: K72.91 Hepatic failure, unspecified with coma (principal); I95.9 Hypotension, unspecified; N17.9 Acute kidney failure, unspecified; N18.9 Chronic kidney disease, unspecified; D72.829 Elevated white blood cell count, unspecified; D64.9 Anemia, unspecified; R00.1 Bradycardia, unspecified; J43.9 Emphysema, unspecified; F41.9 Anxiety disorder, unspecified; F32.9 Major depressive disorder, single episode, unspecified; F17.210 Nicotine dependence, cigarettes, uncomplicated; Z94.4 Liver transplant status; Z85.05 Personal history of malignant neoplasm of liver; Z87.448 Personal history of other diseases of urinary system; Z87.19 Personal history of other diseases of the digestive system; Z88.5 Allergy status to narcotic agent; Z88.8 Allergy status to other drugs, medicaments and biological substances; Z88.6 Allergy status to analgesic agent; Z91.041 Radiographic dye allergy status
CPT/HCPCS: 36415; 71045; 80053; 82140; 83605; 83690; 85007; 85027; 85610; 85730; 86850; 86900; 86901; 86920; 87040

== ENCOUNTER → 2018-05-21 | Outpatient (CLI) | payer MEDICAID ==
[2018-05-21 10:46] LABS: BASOPHILS % (AUTO) 0 % (0-10); EOSINOPHILS # (AUTO) 1.1 10^3/uL (0.0-0.3); EOSINOPHILS % (AUTO) 12 % (0-10); HEMATOCRIT 27 % (40-54); HEMOGLOBIN 8.7 G/DL (13.3-17.7); LYMPHOCYTES # (AUTO) 2.9 X 10^3 (1.0-4.0); LYMPHOCYTES % (AUTO) 29 % (12-44); MEAN CORPUSCULAR HEMOGLOBIN 31 PG (25-34); MEAN CORPUSCULAR HGB CONC 33 G/DL (32-36); MEAN CORPUSCULAR VOLUME 93 FL (80-99); MEAN PLATELET VOLUME 11.4 FL (7.4-10.4); MONOCYTES # (AUTO) 1.9 X 10^3 (0.0-1.0); MONOCYTES % (AUTO) 20 % (0-12); NEUTROPHILS # (AUTO) 3.8 X 10^3 (1.8-7.8); NEUTROPHILS % (AUTO) 39 % (42-75); PLATELET COUNT 130 10^3/uL (130-400); RED BLOOD COUNT 2.84 10^6/uL (4.35-5.85); RED CELL DISTRIBUTION WIDTH 15.2 % (10.0-14.5); WHITE BLOOD COUNT 9.8 10^3/uL (4.3-11.0)
[2018-05-21 11:03] LABS: EOSINOPHILS % (MANUAL) 12 %; LYMPHOCYTES % (MANUAL) 27 %; MONOCYTES % (MANUAL) 19 %; NEUTROPHILS % (MANUAL) 42 %; POIKILOCYTOSIS SLIGHT
== END ==
LOC: LAB 10:17
PROVIDERS: ATTEND Internal Medicine Nephrology
DX: D64.9 Anemia, unspecified (principal)
CPT/HCPCS: 36415; 85007; 85027

== ENCOUNTER → 2018-06-28 | Outpatient (CLI) | payer MEDICAID ==
[2018-06-28 14:11] LABS: BASOPHILS % (AUTO) 1 % (0-10); EOSINOPHILS # (AUTO) 0.4 10^3/uL (0.0-0.3); EOSINOPHILS % (AUTO) 6 % (0-10); HEMATOCRIT 30 % (40-54); HEMOGLOBIN 9.4 G/DL (13.3-17.7); LYMPHOCYTES # (AUTO) 1.7 X 10^3 (1.0-4.0); LYMPHOCYTES % (AUTO) 24 % (12-44); MEAN CORPUSCULAR HEMOGLOBIN 31 PG (25-34); MEAN CORPUSCULAR HGB CONC 31 G/DL (32-36); MEAN CORPUSCULAR VOLUME 98 FL (80-99); MONOCYTES % (AUTO) 15 % (0-12); NEUTROPHILS # (AUTO) 3.7 X 10^3 (1.8-7.8); NEUTROPHILS % (AUTO) 54 % (42-75); PLATELET COUNT 110 10^3/uL (130-400); RED BLOOD COUNT 3.06 10^6/uL (4.35-5.85); RED CELL DISTRIBUTION WIDTH 17.2 % (10.0-14.5); WHITE BLOOD COUNT 6.9 10^3/uL (4.3-11.0)
== END ==
LOC: LAB 13:55
PROVIDERS: ATTEND Internal Medicine Gastroenterology
DX: E61.1 Iron deficiency (principal)
CPT/HCPCS: 36415; 83540; 85025

== ENCOUNTER → 2018-07-19 | Outpatient (CLI) | payer MEDICAID ==
[2018-07-19 10:17] LABS: BASOPHILS # (AUTO) 0.1 10^3/uL (0.0-0.1); BASOPHILS % (AUTO) 1 % (0-10); EOSINOPHILS # (AUTO) 0.9 10^3/uL (0.0-0.3); EOSINOPHILS % (AUTO) 12 % (0-10); HEMATOCRIT 34 % (40-54); HEMOGLOBIN 10.7 G/DL (13.3-17.7); LYMPHOCYTES # (AUTO) 2.3 X 10^3 (1.0-4.0); LYMPHOCYTES % (AUTO) 31 % (12-44); MEAN CORPUSCULAR HEMOGLOBIN 30 PG (25-34); MEAN CORPUSCULAR HGB CONC 32 G/DL (32-36); MEAN CORPUSCULAR VOLUME 95 FL (80-99); MEAN PLATELET VOLUME 11.6 FL (7.4-10.4); MONOCYTES # (AUTO) 1.3 X 10^3 (0.0-1.0); MONOCYTES % (AUTO) 17 % (0-12); NEUTROPHILS % (AUTO) 40 % (42-75); PLATELET COUNT 99 10^3/uL (130-400); RED BLOOD COUNT 3.53 10^6/uL (4.35-5.85); RED CELL DISTRIBUTION WIDTH 15.2 % (10.0-14.5); WHITE BLOOD COUNT 7.5 10^3/uL (4.3-11.0)
[2018-07-19 10:30] LABS: BILIRUBIN,URINE NEGATIVE (NEGATIVE); CLARITY,URINE CLEAR; COLOR,URINE YELLOW; GLUCOSE, URINE (UA) NEGATIVE (NEGATIVE); KETONES,URINE NEGATIVE (NEGATIVE); LEUKOCYTE ESTERASE ,URINE NEGATIVE (NEGATIVE); NITRITE,URINE NEGATIVE (NEGATIVE); PH,URINE 6 (5-9); PROTEIN,URINE 2+ (NEGATIVE); UROBILINOGEN,URINE NORMAL (NORMAL)
[2018-07-19 10:41] LABS: ALBUMIN 2.8 GM/DL (3.2-4.5); BILIRUBIN,DIRECT 0.4 MG/DL (0.0-0.3); BILIRUBIN,INDIRECT 0.3 MG/DL; BILIRUBIN,TOTAL 0.7 MG/DL (0.1-1.0); CALCIUM 8.4 MG/DL (8.5-10.1); CREATININE SERUM 2.63 MG/DL (0.60-1.30); MAGNESIUM 1.5 MG/DL (1.8-2.4); POTASSIUM 4.7 MMOL/L (3.6-5.0); TOTAL PROTEIN 6.5 GM/DL (6.4-8.2); URIC ACID 7.8 MG/DL (2.6-7.2)
[2018-07-19 10:42] LABS: BACTERIA,URINE NEGATIVE /HPF; RBC,URINE RARE /HPF; SQUAMOUS EPITHELIAL CELL,UR RARE /HPF
== END ==
LOC: LAB 09:58
PROVIDERS: ATTEND Internal Medicine Nephrology
DX: N17.9 Acute kidney failure, unspecified (principal); D64.9 Anemia, unspecified; I12.9 Hypertensive chronic kidney disease with stage 1 through stage 4 chronic kidney disease, or unspecified chronic kidney disease; R60.9 Edema, unspecified; E87.6 Hypokalemia; N18.4 Chronic kidney disease, stage 4 (severe)
CPT/HCPCS: 36415; 80069; 80076; 81000; 82550; 82570; 83735; 83970; 84156; 84550; 85025

== ENCOUNTER → 2018-09-11 | Outpatient (CLI) | payer MEDICAID ==
[~2018-09-11] MED LIST changes: -AMLO5TAB7 PO; +AMLO5TAB9 PO
[2018-09-11 12:17] LABS: BASOPHILS % (AUTO) 0 % (0-10); EOSINOPHILS # (AUTO) 0.8 10^3/uL (0.0-0.3); EOSINOPHILS % (AUTO) 9 % (0-10); HEMATOCRIT 33 % (40-54); HEMOGLOBIN 10.8 G/DL (13.3-17.7); LYMPHOCYTES # (AUTO) 2.7 X 10^3 (1.0-4.0); LYMPHOCYTES % (AUTO) 30 % (12-44); MEAN CORPUSCULAR HEMOGLOBIN 30 PG (25-34); MEAN CORPUSCULAR HGB CONC 33 G/DL (32-36); MEAN CORPUSCULAR VOLUME 92 FL (80-99); MEAN PLATELET VOLUME 11.9 FL (7.4-10.4); MONOCYTES # (AUTO) 1.5 X 10^3 (0.0-1.0); MONOCYTES % (AUTO) 16 % (0-12); NEUTROPHILS # (AUTO) 4.1 X 10^3 (1.8-7.8); NEUTROPHILS % (AUTO) 45 % (42-75); PLATELET COUNT 108 10^3/uL (130-400); RED CELL DISTRIBUTION WIDTH 16.2 % (10.0-14.5); WHITE BLOOD COUNT 9.1 10^3/uL (4.3-11.0)
[2018-09-11 12:38] LABS: BILIRUBIN,TOTAL 0.5 MG/DL (0.1-1.0); CALCIUM 8.7 MG/DL (8.5-10.1); CREATININE SERUM 3.02 MG/DL (0.60-1.30); MAGNESIUM 1.4 MG/DL (1.8-2.4); POTASSIUM 4.4 MMOL/L (3.6-5.0); TOTAL PROTEIN 6.5 GM/DL (6.4-8.2)
== END ==
LOC: LAB 12:00
PROVIDERS: ATTEND Internal Medicine Gastroenterology
DX: K74.60 Unspecified cirrhosis of liver (principal)
CPT/HCPCS: 36415; 80053; 82105; 83735; 85025

== ENCOUNTER → 2018-09-12 | Outpatient (CLI) | payer MEDICAID ==
--- NOTE | 2018-09-12 10:57 | Diagnostic Imaging Report ---
PROCEDURE: US Hepatic (Liver). TECHNIQUE: Multiple real-time grayscale images were obtained over the right upper quadrant in various projections. INDICATION: Cirrhosis. Patient had a liver transplant in 2004 as well as a TIPS placed in 2007. FINDINGS: The liver measures 13.9 cm in size. There is generalized parenchymal heterogeneity throughout the liver but no discrete liver mass is identified. The patient does have a TIPS which appears to be patent. Evaluation of the bile duct is limited due to bowel gas. The pancreas is obscured by bowel gas. The right kidney is unremarkable. No calculi or hydronephrosis is seen. There is a small amount of upper abdominal ascites adjacent to the left lobe of the liver. IMPRESSION: 1. Liver heterogeneity without evidence of discrete mass. The patient has a TIPS which appears to be patent. 2. Minimal upper abdominal ascites. Dictated by: Dictated on workstation # [id number]
== END ==
LOC: RAD 08:02
PROVIDERS: ATTEND Internal Medicine Gastroenterology
DX: K74.60 Unspecified cirrhosis of liver (principal); Z94.4 Liver transplant status; Z96.89 Presence of other specified functional implants
CPT/HCPCS: 76705

== ENCOUNTER 2018-09-27 16:26 | Emergency (ER) | payer MEDICAID ==
[~2018-09-27] VITALS: Ht 182.9 cm; Wt 74.8 kg
--- OUTSIDE RECORDS SUMMARY | 2018-09-27 16:32 | XMS REPORT | Clinical Summary ---
Author Author [facility] Organization [facility] Address Unknown Phone Unavailable Care Team Providers Care Staff Nurse Anesthetist Name Role Phone PCP Unavailable Allergies Not [...]
--- OUTSIDE RECORDS SUMMARY | 2018-09-27 16:32 | XMS REPORT | Encounter Summary ---
Author Author [facility] Organization [facility] Address Unknown Phone Unavailable Care Team Providers Care Gasoline Pump Mechanic Name Role Phone Max Anne MD PCP Unavailable Shaun Centeno MD Unavailable Flash Ruggiero RN Unavailable Unavailable Barb Luther Unavailable Unavailable Dennise Yao Unavailable Unavailable Marlen Bowling MA Unavailable Unavailable Reason for Visit * Reason Comments Patient Reminder Call appointment reminder with Transplant Clinic Encounter Details Care Team Description Date Type Department Vic Clayton MD [address] [facility] [place] [address] Patient Reminder Call (appointment reminder with Transplant Clinic) 09/06/2018 Telephone [facility] [address] [id number] Social History Date Tobacco Use Types Packs/Day Years Used Former Smoker Cigarettes 1 20 Alcohol Use Drinks/Week oz/Week Comments No Sex Assigned at Date Recorded Not on file Industry Job Start Date Occupation Not on file Not on file Not on file Travel End Travel History Travel Start No recent travel history available. documented as of this encounter Miscellaneous Notes * Telephone Encounter - Blaze Lopes - 09/06/2018 11:53 AM DUST COLLECTOR OPERATOR Attempted x 3 to contact patient to confirm appointment with Dr. Clayton on Sunday, September 09, 2018 at 12:00 pm. Phone line has been busy. Unable to contact patient.Blaze Lopes COLLECTOR OPERATOR documented in this encounter Plan of Treatment Not on filedocumented as of this encounter Visit Diagnoses Not on filedocumented in this encounter
--- OUTSIDE RECORDS SUMMARY | 2018-09-27 16:32 | XMS REPORT | Clinical Summary ---
Author Author [facility] Organization [facility] Address Unknown Phone Unavailable Care Team Providers Care Repairer Recreational Vehicle Name Role Phone Max Anne MD PCP Unavailable Shaun Centeno MD Unavailable Flash Ruggiero RN Unavailable Unavailable Barb Luther Unavailable Unavailable Dennise Yao Unavailable Unavailable Marlen Bowling MA Unavailable Unavailable Source Comments Some departments are not documenting in the electronic medical record. If you do not see the information that you expected, contact Release of Information in the Health Information Management department at [phone] for further assistance in locating additional records.[facility] Allergies Comments Active Allergy Reactions Severity Noted Date Ringing in ears Codeine NAUSEA ONLY, Medium 12/16/2003 ITCHING, SEE COMMENTS Restlessness, sleep loss, Hyperactivity Fentanyl SEE COMMENTS High 03/06/2005 Heparin Analogues NAUSEA ONLY Medium 12/18/2003 Hypertension, Headache Sumatriptan SEE COMMENTS High 03/06/2005 Medications End Date Status Medication Sig Dispensed Refills Start Date Active oxycodone (OXY-IR) 30 mg Take 1 Tab by 0 tablet mouth Twice Daily as needed. Active oxycodone SR (OXYCONTIN) Take 1 Tab by 0 80 mg tablet mouth Every 12 Hours. Active tacrolimus (PROGRAF) 1 mg Take 1 Cap by 0 capsule mouth Twice Daily. Active lansoprazole DR Take 1 Cap by 0 (PREVACID) 30 mg capsule mouth Daily. Active spironolactone Take 1 Tab by 0 (ALDACTONE) 100 mg tablet mouth Daily. Active Cholestyramine, Bulk, Take 1 Packet 0 Powd by mouth Four Times Daily. Active Lactulose 10 gram/15 mL Take 30 mL by 0 Syrp mouth Three Times Daily as needed. Active oxycodone 5 mg capsule Take 1 Cap by 30 Cap 0 mouth Every 4 0 Hours as needed. 1-2 tablets as needed for pain Active Problems Not on file Encounters Care Team Description Date Type Specialty Vic Clayton MD Scheduling 09/09/2018 Telephone Transplant Surgery Vic Clayton MD Patient Reminder Call (appointment reminder with Transplant Clinic) 09/06/2018 Telephone Transplant Surgery from Last 3 Months Social History Date Tobacco Use Types Packs/Day Years Used Former Smoker Cigarettes 1 20 Alcohol Use Drinks/Week oz/Week Comments No Sex Assigned at Date Recorded Not on file Industry Job Start Date Occupation Not on file Not on file Not on file Travel End Travel History Travel Start No recent travel history available. Last Filed Vital Signs Time Taken Vital Sign Reading 10/29/2009 6:00 AM CDT Blood Pressure 94/51 10/29/2009 6:00 AM CDT Pulse 79 10/29/2009 6:00 AM CDT Temperature 37.1 C (98.8 F) - Respiratory Rate - 10/29/2009 6:00 AM CDT Oxygen Saturation 94% - Inhaled Oxygen - Concentration 10/28/2009 9:00 AM CDT Weight 65.5 kg (144 lb 6.4 oz) 10/28/2009 9:00 AM CDT Height 180.3 cm (5' 11") 10/28/2009 9:00 AM CDT Body Mass Index 20.14 Plan of Treatment Health Maintenance Due Date Last Done Comments PHYSICAL (COMPREHENSIVE) 10/10/1963 EXAM HIV SCREENING 10/10/1971 DTAP/TDAP VACCINES (1 - 1974 Tdap) COLORECTAL CANCER 2006 SCREENING SHINGLES RECOMBINANT 2006 VACCINE (1 of 2) INFLUENZA VACCINE 02/06/2018 HEPATITIS C SCREENING Completed 03/16/2004 Results Not on filefrom Last 3 Months Advance Directives Patient has advance care planning documents on file. For more information, please contact: [facility] [address] [place] [address]
--- OUTSIDE RECORDS SUMMARY | 2018-09-27 16:32 | XMS REPORT | Encounter Summary ---
Author Author [facility] Organization [facility] Address Unknown Phone Unavailable Care Team Providers Care Fruit Ii Farmworker Name Role Phone Max Anne MD PCP Unavailable Shaun Centeno MD Unavailable Flash Ruggiero RN Unavailable Unavailable Barb Luther Unavailable Unavailable Dennise Yao Unavailable Unavailable Marlen Bowling MA Unavailable Unavailable Reason for Visit * Reason Comments Scheduling Encounter Details Care Team Description Date Type Department Vic Clayton MD [address] [facility] [place], [place] [id number] Scheduling 09/09/2018 Telephone [facility] [address] [id number] Social History Date Tobacco Use Types Packs/Day [...] encounter Miscellaneous Notes * Telephone Encounter - Amy Buck - 09/10/2018 11:15 AM PHARMACY LABORATORY TECHNICIAN Called PT lvm with direct line [facility] LABORATORY TECHNICIAN * Telephone Encounter - Marjorie Owusu - 09/09/2018 8:33 AM PHARMACY LABORATORY TECHNICIAN Cancel today's appt. Please call to reschedule.. [facility] LABORATORY TECHNICIAN documented in this encounter Plan of Treatment Not on filedocumented as of this encounter Visit Diagnoses Not on filedocumented in this encounter
--- OUTSIDE RECORDS SUMMARY | 2018-09-27 16:33 | XMS REPORT ---
Author Author TEREZA JAVIER Organization [facility] Address [address] [place] [address] Care Team Providers Care General Office Clerk Name Role Phone TEREZA JAVIER Unavailable PROBLEMS Type Condition ICD9-CM Code ADF53-DQ Code Onset Dates Condition Status SNOMED Code Problem ZOSTAVAX DX V05.8 Active 70691905 Problem Other chronic pain G89.29 Active 17004225 Problem Chronic obstructive pulmonary disease, unspecified COPD type J44.9 Active 26614609 Problem Sciatica of left side M54.32 Active 21394631 Problem History of liver transplant Z94.4 Active 071556349 Problem Reactive depression F32.9 Active 39499713 Problem Essential hypertension I10 Active 12963434 ALLERGIES No Information ENCOUNTERS Encounter Location Date Diagnosis [facility] [id number] [place] [address]17- [address] Jun, History of liver transplant Z94.4 [facility] [id number] [place] [address] 72207- 6769 Jun, [facility] [id number] [place] [address] 74816- 7747 Jun, History of liver transplant Z94.4 [facility] [id number] [place] [address] 66137- 7276 May, Bronchitis J40 [facility] [id number] [place] [address] 69223- 9101 May, [facility] [address] [address] May, [facility] [id number] [place] [address] 01336- 2746 May, History of liver transplant Z94.4 [id number] [address] May, Other chronic pain G89.29 [facility] [id number] [place] [address] 71973- 9655 May, [facility] [address] [place] [address] 06788- 5684 Apr, History of liver transplant Z94.4 [facility] [id number] [place] [address] 60573- 6901 Mar, History of liver transplant Z94.4 [facility] [id number] [place] [address] 45411- 2407 Feb, History of liver transplant Z94.4 [facility] [id number] [place] [address] 77167- 7764 Jan, History of liver transplant Z94.4 [facility] [id number] [place] [address] 89829- 5424 Jan, Encounter for long-term opiate analgesic use Z79.891 [facility] [id number] [place] [address] 28118- 4646 Jan, [facility] [address] [place] [address] 98887- 6075 Dec, History of liver transplant Z94.4 [facility] [id number] [place] [address] 47174- 4430 Dec, Other chronic pain G89.29 ; Unspecified abdominal pain R10.9 and Sciatica of left side M54.32 [facility] [address] [place] [address] 16079- 2703 November, History of liver transplant Z94.4 [facility] [address] [address] Oct, History of liver transplant Z94.4 [facility] [id number] [place] [address] 38262- 1382 Oct, History of liver transplant Z94.4 [facility] [id number] [place] [address] 60465- 8796 Oct, Sciatica of left side M54.32 [facility] [id number] [place] [address] 76373- 7006 Sep, [facility] [id number] [place] [address] 86126- 6532 Sep, Sciatica of left side M54.32 and Flu-like symptoms R68.89 [facility] [id number] [place] [address] 34815- 8336 Sep, Sciatica of left side M54.32 [facility] [id number] [place] [address] 39150- 7487 Aug, History of liver transplant Z94.4 [facility] [id number] [place] [address] 36999- 9735 Aug, Sciatica of left side M54.32 [facility] [id number] [place] [address] 80113- 0076 Jul, Generalized edema R60.1 [facility] [id number] [place] [address] 66498- 9271 Jun, Sciatica of left side M54.32 [facility] [id number] [place] [address] 84169- 4156 Jun, Sciatica of left side M54.32 [facility] [id number] [place] [address] 38424- 3966 May, Sciatica of left side M54.32 ; Encounter for immunization Z23 ; History of liver transplant Z94.4 and Chronic obstructive pulmonary disease, unspecified COPD type J44.9 [facility] [address] [place] [address] 48655- 2146 May, Sciatica of left side M54.32 [facility] [address] [address] 10 Apr, 2017 Sciatica of left side M54.32 [facility] [id number] [place] [address] 63164 2546 15 Mar, 2017 Sciatica of left side M54.32 [facility] [id number] [place] [address] 17635 2546 07 Mar, 2017 Sciatica of left side M54.32 [facility] [address] [place] [address], [place] [address] 2546 Feb, Sciatica of left side M54.32 [facility] [id number] [place] [address] 33984- 3826 Jan, [facility] [id number] [place] [address] 64452- 6686 Jan, Essential hypertension I10 and Reactive depression F32.9 [facility] [id number] [place] [address] 63491- 7235 Jan, Sciatica of left side M54.32 [facility] [id number] [place] [address] 08210- 2006 Jan, [facility] [address] [address] Dec, [facility] [id number] [place] [address] 60204 2546 Dec, Sciatica of left side M54.32 [facility] [address] [address] 2546 November, Sciatica of left side M54.32 [facility] [address] [address] 2546 Oct, Sciatica of left side M54.32 [facility] [id number] [place] [address] 26835 2546 Sep, [facility] [address] [facility] [id number] [place] [address]- [address]46 Sep, Sciatica of left side M54.32 [facility] [id number] [place] [address]- 2546 Sep, Sciatica of left side M54.32 [facility] [address] [place] [address]- 2546 Sep, Sciatica of left side M54.32 [facility] [address] [facility] [id number] [place] [address]- 2546 Aug, Sciatica of left side M54.32 [facility] [id number] [place] [address], [place] [address]- 2546 Aug, [facility] [id number] [place] [address]- 2546 Jun, Sciatica of left side M54.32 [facility] [address] [place] [address]- 2546 Jun, [facility] [id number] [address] 2546 Jun, [facility] [address] [place] [address]- 2546 May, [facility] [address] [place] [address]- 2546 May, [facility] [id number] [place] [address]- 2546 Apr, [facility] [id number] [place] [address]- 2546 Apr, Sciatica of left side M54.32 [facility] [id number] [place] [address]- 2546 Mar, [facility] [address] [place] [address]- 3366 Feb, [facility] [address] [facility] [id number] [address] Jan, [facility] [address] [facility] [id number] [address]- [address]66 Jan, Sciatica of left side M54.32 [address] [facility] [id number] [address]- 9405 Dec, History of liver transplant Z94.4 and Sciatica of left side M54.32 [address] [facility] [id number] [address]- 2564 Oct, IMMUNIZATIONS No Known Immunizations SOCIAL HISTORY Never Assessed REASON FOR VISIT Controlled Med Refill 06/14 PLAN OF CARE VITAL SIGNS MEDICATIONS Medication Instructions Dosage Frequency Start Date End Date Duration Status OxyContin 80 MG Orally 3 times a day 1 tablet 8h Jun, 28 days Active Oxycodone HCl 30 MG Orally every 4 hrs 1 tablet 4h Jun, 28 days Active RESULTS No Results PROCEDURES No Known procedures INSTRUCTIONS MEDICATIONS ADMINISTERED No Known Medications MEDICAL (GENERAL) HISTORY Type Description Date Medical History cirrhosis of liver Medical History liver transplant Medical History ulcers Surgical History liver transplant Surgical History kidney biopsy Surgical History endoscopy for ulcers 04/25 Hospitalization History liver transplant Hospitalization History [facility] Jul 2017 Hospitalization History [facility] for uclers 04/25 Hospitalization History [place] trans to [facility] x3 days - toxins were very high 05/26
--- OUTSIDE RECORDS SUMMARY | 2018-09-27 16:33 | XMS REPORT ---
Author Author TEREZA JAVIER Organization [facility] Address [address] [place] [address] Care Team Providers Care Storyboard Artist Name Role Phone TEREZA JAVIER Unavailable PROBLEMS Type Condition ICD9-CM Code IRV97-AO Code Onset Dates Condition Status SNOMED Code Problem ZOSTAVAX DX V05.8 Active 96865034 Problem Other chronic pain G89.29 Active 35626600 Problem Chronic obstructive pulmonary disease, unspecified COPD type J44.9 Active 97518678 Problem Sciatica of left side M54.32 Active 75532701 Problem History of liver transplant Z94.4 Active 725032487 Problem Reactive depression F32.9 Active 94220821 Problem Essential hypertension I10 Active 38880763 ALLERGIES Substance Reaction Event Type Date Status Codeine Phosphate itching Drug Allergy May, Active ENCOUNTERS Encounter Location Date Diagnosis [facility] [id number] [place] [address] 93257- 2937 May, Bronchitis J40 [facility] [id number] [place] [address] 97817- 8178 May, [facility] [id number] [place] [address] 16755- 4240 May, [facility] [id number] [place] [address] 69832- 0398 May, History of liver transplant Z94.4 [facility] [id number] [place] [address] 11738- 3008 May, Other chronic pain G89.29 [facility] [id number] [place] [address] 04551- 8248 May, [facility] [id number] [place] [address] 68420- 5999 Apr, History of liver transplant Z94.4 [facility] [address], [place] [address] 1806 Mar, History of liver transplant Z94.4 [facility] [address] [address] 6[address] Feb, History of liver transplant Z94.4 [facility] [id number] [place] [address] 64013- 5903 Jan, History of liver transplant Z94.4 [facility] [address], [place] [address] 4694 Jan, Encounter for long-term opiate analgesic use Z79.891 [facility] [id number] [address] 59[address] Jan, [facility] [id number] [place] [address] 61140- 1180 Dec, History of liver transplant Z94.4 [facility] [address], [place] [address] 2360 Dec, Other chronic pain G89.29 ; Unspecified abdominal pain R10.9 and Sciatica of left side M54.32 [facility] [address], [place] [address] 7495 November, History of liver transplant Z94.4 [facility] [address], [place] [address] 8681 Oct, History of liver transplant Z94.4 [facility] [address], [place] [address]- 6842 Oct, History of liver transplant Z94.4 [facility] [address], [place] [address]- 3069 Oct, Sciatica of left side M54.32 [facility] [address], [place] [address]- 0640 Sep, [place] [id number] [place] [address] 01591- 7456 Sep, Sciatica of left side M54.32 and Flu-like symptoms R68.89 [facility] [id number] [place] [address] 58054- 0574 Sep, Sciatica of left side M54.32 [facility] [address] 47499- 7400 Aug, History of liver transplant Z94.4 [facility] [id number] [place] [address] 13154- 3294 Aug, Sciatica of left side M54.32 [place] [address] 78855- 1138 Jul, Generalized edema R60.1 [place] [address] 75773- 5955 Jun, Sciatica of left side M54.32 [facility] [id number] [place] [address] 93116- 7457 Jun, Sciatica of left side M54.32 [facility] [facility] [id number] [place] [address] 75261- 0949 May, Sciatica of left side M54.32 ; Encounter for immunization Z23 ; History of liver transplant Z94.4 and Chronic obstructive pulmonary disease, unspecified COPD type J44.9 [facility] [id number] [place] [address] 33096- 4501 May, Sciatica of left side M54.32 [place] [address] 99496- 2613 10 Apr, 2017 Sciatica of left side M54.32 [facility] [id number] [place] [address] 42722- 6044 15 Mar, 2017 Sciatica of left side M54.32 [facility] [address] [place] [address]- 8646 Mar, Sciatica of left side M54.32 [facility] [id number] [place] [address] 05985 2546 Feb, Sciatica of left side M54.32 [facility] [id number] [place] [address] 60609 2546 Jan, [facility] [id number] [place] [address] 22503 2546 Jan, Essential hypertension I10 and Reactive depression F32.9 [facility] [id number] [place] [address] 53083 2546 Jan, Sciatica of left side M54.32 [facility] [id number] [place] [address] 63186 2546 Jan, [facility] [id number] [place] [address] 77141 2546 Dec, [facility] [id number] [place] [address] 50149 2546 Dec, Sciatica of left side M54.32 [facility] [id number] [place] [address] 36093 2546 November, Sciatica of left side M54.32 [facility] [id number] [place] [address] 00542 2546 Oct, Sciatica of left side M54.32 [facility] [id number] [place] [address] 96893 2546 Sep, [facility] [id number] [place] [address] 99354 2546 Sep, Sciatica of left side M54.32 [facility] [id number] [address] 2546 Sep, Sciatica of left side M54.32 [facility] [id number] [address]- 2546 Sep, Sciatica of left side M54.32 [facility] [address] [place] [address], [place] [address]- 2546 Aug, Sciatica of left side M54.32 [facility] [address] [place] [address], [place] [address]- 2546 Aug, [facility] [id number] [place] [address], [place] [address]- 3876 Jun, Sciatica of left side M54.32 [facility] [id number] [place] [address], [place] [address]- 2546 Jun, [facility] [id number] [place] [address], [place] [address]- 2546 Jun, [facility] [id number] [place] [address] 94651- 9506 May, [facility] [id number] [place] [address]- 2546 May, [facility] [id number] [place] [address] 18455- 4736 Apr, [facility] [address], [place] [address]- 2546 Apr, Sciatica of left side M54.32 [facility] [address], [place] [address]- 2546 Mar, [facility] [address], [place] [address]- 2546 Feb, [facility] [id number] [address] 2546 Jan, [facility] [address], [place] [address]- 2546 Jan, Sciatica of left side M54.32 [facility] [id number] [place] [address] 52456- 8880 Dec, History of liver transplant Z94.4 and Sciatica of left side M54.32 [facility] [address] [facility] [id number] [address]- 9415 Oct, IMMUNIZATIONS No Known Immunizations SOCIAL HISTORY Never Assessed REASON FOR VISIT cough and congetion for over a week Melo TELLO , started with runny nose and cough and went to chest Melo TELLO , cough with mucus and vomiting from coughing so hard Melo Tello , PT says shortness of breath at night- 98% on room air Melo TELLO , PT and family not sure what he can take due to his kidneys Melo TELLO , very cold and has chills - cant get warm Melo Tello PLAN OF CARE Activity Details Follow Up Regular appt Reason: VITAL SIGNS Height 72 in 2018-06-04 Weight 176.3 lbs 2018-06-04 Temperature 98.0 degrees Fahrenheit 2018-06-04 Heart Rate 60 bpm 2018-06-04 Respiratory Rate 20 2018-06-04 Oximetry on room air:98 % 2018-06-04 BMI 23.91 kg/m2 2018-06-04 Blood pressure systolic 134 mmHg 2018-06-04 Blood pressure diastolic 86 mmHg 2018-06-04 MEDICATIONS Medication Instructions Dosage Frequency Start Date End Date Duration Status Oxycodone HCl 30 MG Orally every 4 hrs 1 tablet 4h May, 28 days Active Vitamin D 1000 UNIT Orally Once a day 1 tablet 24h Active Cefuroxime Axetil 500 MG Orally 2 times a day 1 tablet 12h May, 7 days Active Zofran ODT 4 MG Orally every 4 hours as needed 1 tablet Sep, Active Prograf 0.5 MG Orally Once a day 3 capsules 24h Active PredniSONE 20 MG Orally Once a day 2 tablet 24h May, 5 days Active Nebulizer - Active Lactulose 20 GM/30ML Orally 4 times a day 45 ml 6h Active Xifaxan 550 MG Orally Twice a day 1 tablet 12h Active Magnesium 500 MG Orally twice a day 1 tablet with a meal 12h Active Potassium 99 MG Orally Once a day 1 tablet 24h Active OxyContin 80 MG Orally 3 times a day 1 tablet 8h May, 28 days Active Methylphenidate HCl 20 MG Orally Twice a day 1 tablet on an empty stomach 12h Aug, Active Carvedilol 6.25 MG Orally 2 times a day 1 tablet 12h Active Symbicort 160-4.5 MCG/ACT Inhalation Twice a day 2 puffs 12h Active RESULTS No Results PROCEDURES No Known procedures INSTRUCTIONS MEDICATIONS ADMINISTERED No Known Medications MEDICAL (GENERAL) HISTORY Type Description Date Medical History cirrhosis of liver Medical History liver transplant Medical History ulcers Surgical History liver transplant Surgical History kidney biopsy Surgical History endoscopy for ulcers 04/25 Hospitalization History liver transplant Hospitalization History [place] Jul 2017 Hospitalization History [place] for uclers 04/25 Hospitalization History [facility] trans to [facility] x3 days - toxins were very high 05/26
--- OUTSIDE RECORDS SUMMARY | 2018-09-27 16:33 | XMS REPORT ---
Author Author TEREZA JAVIER Organization [facility] Address [address] [place] [address] Care Team Providers Care Physician Interventional Cardiologist Name Role Phone TEREZA JAVIER Unavailable PROBLEMS Type Condition ICD9-CM Code TDA38-KP Code Onset Dates Condition Status SNOMED Code Problem ZOSTAVAX DX V05.8 Active 28319312 Problem Other chronic pain G89.29 Active 07893278 Problem Chronic obstructive pulmonary disease, unspecified COPD type J44.9 Active 67938903 Problem Sciatica of left side M54.32 Active 98460721 Problem History of liver transplant Z94.4 Active 679720624 Problem Reactive depression F32.9 Active 78982429 Problem Essential hypertension I10 Active 83120584 ALLERGIES No Information ENCOUNTERS Encounter Location Date Diagnosis [facility] [id number] [place] [address] 57490- 5455 Jun, History of liver transplant Z94.4 [facility] [id number] [place] [address] 18594- 4947 Jun, [facility] [id number] [place] [address] 72548- 1845 Jun, History of liver transplant Z94.4 [facility] [id number] [place] [address] 09087- 3270 May, Bronchitis J40 [facility] [id number] [place] [address] 50045- 0180 May, [facility] [address] 13241- 1343 May, [facility] [id number] [place] [address] 86143- 4071 May, History of liver transplant Z94.4 [place] [address], [place] [address]- 9496 May, Other chronic pain G89.29 [facility] [id number] [place] [address] 86163- 9986 May, [facility] [address] [place] [address] 22205- 8792 Apr, History of liver transplant Z94.4 [facility] [id number] [place] [address] 17029- 0170 Mar, History of liver transplant Z94.4 [facility] [id number] [place] [address] 22035- 1919 Feb, History of liver transplant Z94.4 [facility] [id number] [place] [address] 27111- 0311 Jan, History of liver transplant Z94.4 [facility] [id number] [place] [address] 10289- 6652 Jan, Encounter for long-term opiate analgesic use Z79.891 [facility] [id number] [place] [address] 15081- 2157 Jan, [facility] [address] [place] [address] 62776- 0279 Dec, History of liver transplant Z94.4 [facility] [id number] [place] [address] 86024- 3624 Dec, Other chronic pain G89.29 ; Unspecified abdominal pain R10.9 and Sciatica of left side M54.32 [facility] [address] [place] [address] 67280- 4042 November, History of liver transplant Z94.4 [facility] [address], [place] [address]- 1828 Oct, History of liver transplant Z94.4 [facility] [id number] [place] [address] 66088- 0585 Oct, History of liver transplant Z94.4 [facility] [id number] [place] [address] 72403- 9626 Oct, Sciatica of left side M54.32 [facility] [id number] [place] [address] 73547- 7626 Sep, [facility] [id number] [place] [address] 70899- 7728 Sep, Sciatica of left side M54.32 and Flu-like symptoms R68.89 [facility] [id number] [place] [address] 59227- 7046 Sep, Sciatica of left side M54.32 [facility] [id number] [place] [address] 53172- 2006 Aug, History of liver transplant Z94.4 [facility] [id number] [place] [address] 57182- 8007 Aug, Sciatica of left side M54.32 [facility] [id number] [place] [address] 48816- 0966 Jul, Generalized edema R60.1 [facility] [id number] [place] [address] 69726- 5761 Jun, Sciatica of left side M54.32 [facility] [id number] [place] [address] 36274- 2086 Jun, Sciatica of left side M54.32 [facility] [id number] [place] [address] 61991- 3646 May, Sciatica of left side M54.32 ; Encounter for immunization Z23 ; History of liver transplant Z94.4 and Chronic obstructive pulmonary disease, unspecified COPD type J44.9 [facility] [address] [place] [address] 01267- 7756 May, Sciatica of left side M54.32 [facility] [address], [place] [address]- 6916 10 Apr, 2017 Sciatica of left side M54.32 [facility] [id number] [place] [address] 23978 2546 15 Mar, 2017 Sciatica of left side M54.32 [facility] [id number] [place] [address] 98649 2546 07 Mar, 2017 Sciatica of left side M54.32 [facility] [address] [place] [address], [place] [address] 2546 Feb, Sciatica of left side M54.32 [facility] [id number] [place] [address] 49128- 1256 Jan, [facility] [id number] [place] [address] 73774- 9766 Jan, Essential hypertension I10 and Reactive depression F32.9 [facility] [id number] [place] [address] 69808- 3306 Jan, Sciatica of left side M54.32 [facility] [id number] [place] [address] 75728- 3476 Jan, [facility] [address], [place] [address]- 8636 Dec, [facility] [id number] [place] [address] 87035 2546 Dec, Sciatica of left side M54.32 [facility] [address], [place] [address] 2546 November, Sciatica of left side M54.32 [facility] [address], [place] [address] 2546 Oct, Sciatica of left side M54.32 [facility] [address] [place] [address] 91258 2546 Sep, [facility] [address] [facility] [id number] [place] [address]- 2546 Sep, Sciatica of left side M54.32 [facility] [id number] [address]- 2546 Sep, Sciatica of left side M54.32 [facility] [address] [address]- 2546 Sep, Sciatica of left side M54.32 [facility] [address] [facility] [id number] [place] [address]- 2546 Aug, Sciatica of left side M54.32 [facility] [id number] [place] [address], [place] [address]- 2546 Aug, [facility] [id number] [address]- 2546 Jun, Sciatica of left side M54.32 [facility] [address] [address]- 2546 Jun, [facility] [id number] [address] 2546 Jun, [facility] [id number] [address]- 2546 May, [facility] [address] [address]- 2546 May, [facility] [id number] [address]- 2546 Apr, [facility] [id number] [address]- 2546 Apr, Sciatica of left side M54.32 [facility] [id number] [address]- 2546 Mar, [facility] [address] [address]- 1976 Feb, [facility] [address] [facility] [id number], [place] [address]- 4841 Jan, [facility] [id number], [place] [address]- 7113 Jan, Sciatica of left side M54.32 [place] [address] [facility] [id number], [place] [address]- 3203 Dec, History of liver transplant Z94.4 and Sciatica of left side M54.32 [place] [address] [facility] [id number], [place] [address]- 4046 Oct, IMMUNIZATIONS No Known Immunizations SOCIAL HISTORY Never Assessed REASON FOR VISIT med refill PLAN OF CARE VITAL SIGNS MEDICATIONS Medication [...] History [facility] for uclers 04/25 Hospitalization History [facility] trans [facility] x3 days - toxins were very high 05/26
--- OUTSIDE RECORDS SUMMARY | 2018-09-27 16:33 | XMS REPORT ---
Author Author TEREZA JAVIER Organization [facility] Address [address] [place] [address] Care Team Providers Care Barrel Assembly Inspector Name Role Phone TEREZA JAVIER Unavailable PROBLEMS Type Condition ICD9-CM Code JDD47-YD Code Onset Dates Condition Status SNOMED Code Problem ZOSTAVAX DX V05.8 Active 34367772 Problem Other chronic pain G89.29 Active 87680065 Problem Chronic obstructive pulmonary disease, unspecified COPD type J44.9 Active 98689118 Problem Sciatica of left side M54.32 Active 77916115 Problem History of liver transplant Z94.4 Active 608181621 Problem Reactive depression F32.9 Active 26974050 Problem Essential hypertension I10 Active 85651807 ALLERGIES No Information ENCOUNTERS Encounter Location Date Diagnosis [facility] [id number] [place] [address] 80763- 1295 Jun, [facility] [id number] [place] [address] 98641- 9734 Jun, History of liver transplant Z94.4 [facility] [id number] [place] [address] 90113- 5404 Jun, [facility] [id number] [place] [address] 60949- 7355 Jun, History of liver transplant Z94.4 [facility] [id number] [place] [address] 29972- 0984 May, Bronchitis J40 [facility] [id number] [place] [address] 75917- 7545 May, [facility] [id number] [place] [address] 20867- 7684 May, [facility] [id number] [address] 2903 May, History of liver transplant Z94.4 [facility] [address] [address]- 2402 May, Other chronic pain G89.29 [facility] [address] [address]- 3408 May, [facility] [id number] [place] [address] 91167- 5780 Apr, History of liver transplant Z94.4 [facility] [address] [address]- 9716 Mar, History of liver transplant Z94.4 [facility] [address] [address]- 2081 Feb, History of liver transplant Z94.4 [facility] [id number] [place] [address] 92697- 9275 Jan, History of liver transplant Z94.4 [facility] [address] [address]- 8995 Jan, Encounter for long-term opiate analgesic use Z79.891 [facility] [address] [address]- 5445 Jan, [facility] [address] [address]- 1759 Dec, History of liver transplant Z94.4 [facility] [id number] [address]- 4087 Dec, Other chronic pain G89.29 ; Unspecified abdominal pain R10.9 and Sciatica of left side M54.32 [facility] [address] [address]- 2942 November, History of liver transplant Z94.4 [facility] [address] [address]- 1714 Oct, History of liver transplant Z94.4 [facility] [address] [address] 2546 Oct, History of liver transplant Z94.4 [facility] [id number] [place] [address] 85960 2546 Oct, Sciatica of left side M54.32 [place] [id number] [place] [address] 57191 2546 Sep, [place] [id number] [place] [address] 21319 2549 Sep, Sciatica of left side M54.32 and Flu-like symptoms R68.89 [place] [id number] [place] [address] 68818- 2546 Sep, Sciatica of left side M54.32 [place] [id number] [place] [address] 75891- 0871 Aug, History of liver transplant Z94.4 [place] [address] [address] 2546 Aug, Sciatica of left side M54.32 [place] [address] [place] [address] 79876- 2546 Jul, Generalized edema R60.1 [place] [address] [place] [address] 77318 2546 Jun, Sciatica of left side M54.32 [place] [id number] [place] [address] 01539 2546 Jun, Sciatica of left side M54.32 [place] [id number] [place] [address] 29386- 2546 May, Sciatica of left side M54.32 ; Encounter for immunization Z23 ; History of liver transplant Z94.4 and Chronic obstructive pulmonary disease, unspecified COPD type J44.9 [place] [id number] [place] [address] 22397- 5266 May, Sciatica of left side M54.32 [facility] [id number] [place] [address] 43343- 2696 10 Apr, 2017 Sciatica of left side M54.32 [facility] [id number] [place] [address] 08273 2546 15 Mar, 2017 Sciatica of left side M54.32 [facility] [id number] [place] [address] 31188 2546 07 Mar, 2017 Sciatica of left side M54.32 [facility] [id number] [place] [address] 43228- 0026 Feb, Sciatica of left side M54.32 [facility] [id number] [place] [address] 52266- 5666 Jan, [facility] [id number] [place] [address] 38870- 3681 Jan, Essential hypertension I10 and Reactive depression F32.9 [facility] [id number] [place] [address] 04174- 0150 Jan, Sciatica of left side M54.32 [facility] [address] [address]- 3486 Jan, [facility] [id number] [place] [address] 08135277- 8786 Dec, [facility] [id number] [place] [address] 11734- 2543 Dec, Sciatica of left side M54.32 [facility] [id number] [place] [address] 46827- 9346 November, Sciatica of left side M54.32 [facility] [address] [address]- 8006 Oct, Sciatica of left side M54.32 [facility] [address] [address] 2546 Sep, [facility] [id number] [place] [address], [place] [address]- 2546 Sep, Sciatica of left side M54.32 [facility] [address] [address]- 2546 Sep, Sciatica of left side M54.32 [facility] [id number] [place] [address], [place] [address]- 2546 Sep, Sciatica of left side M54.32 [facility] [id number] [place] [address], [place] [address]- 2546 Aug, Sciatica of left side M54.32 [facility] [id number] [place] [address], [place] [address]- 2546 Aug, [facility] [id number] [place] [address] 30993 2546 Jun, Sciatica of left side M54.32 [facility] [id number] [place] [address] 2546 Jun, [facility] [address] [address]- 2546 Jun, [facility] [address] [address] 2546 May, [facility] [address] [address]- 2546 May, [facility] [id number] [place] [address] 06037 2546 14 Apr, 2016 [facility] [id number] [place] [address] 04512- 2546 Apr, Sciatica of left side M54.32 [facility] [address] [address]- 2546 Mar, [facility] [address] [facility] [id number] [address] Feb, [facility] [address] [address]- 5804 Jan, [facility] [id number] [address]- 7902 Jan, Sciatica of left side M54.32 [place] [address] [address]- 7459 Dec, History of liver transplant Z94.4 and Sciatica of left side M54.32 [place] [address] 8462 Oct, IMMUNIZATIONS No Known Immunizations SOCIAL HISTORY Never Assessed REASON FOR VISIT Medication refill request PLAN OF CARE VITAL SIGNS MEDICATIONS Medication Instructions Dosage Frequency Start Date End Date Duration Status Protonix 40 MG Orally Once a day 1 tablet 24h Jun, 30 day(s) Active RESULTS No Results PROCEDURES No Known [...] uclers 04/25 Hospitalization History [facility] trans [facility] x[facility] days - toxins were very high 05/26
--- OUTSIDE RECORDS SUMMARY | 2018-09-27 16:33 | XMS REPORT ---
Author Author TEREZA JAVIER Organization [facility] Address [address] [place] [address] Care Team Providers Care Oil Filters Inspector Name Role Phone TEREZA JAVIER Unavailable PROBLEMS Type Condition ICD9-CM Code DAI58-NX Code Onset Dates Condition Status SNOMED Code Problem ZOSTAVAX DX V05.8 Active 31215776 Problem Other chronic pain G89.29 Active 55106266 Problem Chronic obstructive pulmonary disease, unspecified COPD type J44.9 Active 41027760 Problem Sciatica of left side M54.32 Active 97880898 Problem History of liver transplant Z94.4 Active 470951633 Problem Reactive depression F32.9 Active 31412549 Problem Essential hypertension I10 Active 27993094 ALLERGIES No Information ENCOUNTERS Encounter Location Date Diagnosis [facility] [id number] [place] [address] 23081- 4139 Jun, History of liver transplant Z94.4 [facility] [id number] [place] [address] 29939- 9477 Jun, [facility] [id number] [place] [address] 87234- 8991 Jun, History of liver transplant Z94.4 [facility] [id number] [place] [address] 90774- 5541 May, Bronchitis J40 [facility] [id number] [place] [address] 18476- 2331 May, [facility] [address] 28578- 2124 May, [facility] [id number] [place] [address] 17899- 4726 May, History of liver transplant Z94.4 [address] [address], [place] [address]- 0567 May, Other chronic pain G89.29 [facility] [id number] [place] [address] 66769- 6817 May, [facility] [address] [place] [address] 81555- 3014 Apr, History of liver transplant Z94.4 [facility] [id number] [place] [address] 33442- 9236 Mar, History of liver transplant Z94.4 [facility] [id number] [place] [address] 58991- 0147 Feb, History of liver transplant Z94.4 [facility] [id number] [place] [address] 83921- 2116 Jan, History of liver transplant Z94.4 [facility] [id number] [place] [address] 21547- 3413 Jan, Encounter for long-term opiate analgesic use Z79.891 [facility] [id number] [place] [address] 05216- 2312 Jan, [facility] [address] [place] [address] 14740- 3056 Dec, History of liver transplant Z94.4 [facility] [id number] [place] [address] 85759- 5757 Dec, Other chronic pain G89.29 ; Unspecified abdominal pain R10.9 and Sciatica of left side M54.32 [facility] [address] [place] [address] 96637- 8850 November, History of liver transplant Z94.4 [facility] [address], [place] [address]- 2098 Oct, History of liver transplant Z94.4 [facility] [id number] [place] [address] 33069- 1801 Oct, History of liver transplant Z94.4 [facility] [id number] [place] [address] 68420- 5136 Oct, Sciatica of left side M54.32 [facility] [id number] [place] [address] 34205- 6446 Sep, [facility] [id number] [place] [address] 43623- 5933 Sep, Sciatica of left side M54.32 and Flu-like symptoms R68.89 [facility] [id number] [place] [address] 93690- 2836 Sep, Sciatica of left side M54.32 [facility] [id number] [place] [address] 40801- 1467 Aug, History of liver transplant Z94.4 [facility] [id number] [place] [address] 49356- 0004 Aug, Sciatica of left side M54.32 [facility] [id number] [place] [address] 11686- 6146 Jul, Generalized edema R60.1 [facility] [id number] [place] [address] 29252- 6596 Jun, Sciatica of left side M54.32 [facility] [id number] [place] [address] 44454- 3486 Jun, Sciatica of left side M54.32 [facility] [id number] [place] [address] 34633- 0626 May, Sciatica of left side M54.32 ; Encounter for immunization Z23 ; History of liver transplant Z94.4 and Chronic obstructive pulmonary disease, unspecified COPD type J44.9 [facility] [address] [place] [address] 13976- 7436 May, Sciatica of left side M54.32 [facility] [address], [place] [address]- 8096 10 Apr, 2017 Sciatica of left side M54.32 [facility] [id number] [place] [address] 51618 2546 15 Mar, 2017 Sciatica of left side M54.32 [facility] [id number] [place] [address] 46478 2546 07 Mar, 2017 Sciatica of left side M54.32 [facility] [address] [place] [address], [place] [address] 2546 Feb, Sciatica of left side M54.32 [facility] [id number] [place] [address] 04674- 9356 Jan, [facility] [id number] [place] [address] 27578- 4236 Jan, Essential hypertension I10 and Reactive depression F32.9 [facility] [id number] [place] [address] 05458- 1664 Jan, Sciatica of left side M54.32 [facility] [id number] [place] [address] 20226- 9916 Jan, [facility] [address], [place] [address]- 0206 Dec, [facility] [id number] [place] [address] 99234 2546 Dec, Sciatica of left side M54.32 [facility] [address], [place] [address] 2546 November, Sciatica of left side M54.32 [facility] [address], [place] [address] 2546 Oct, Sciatica of left side M54.32 [facility] [address] [place] [address] 76472 2546 Sep, [facility] [address] [facility] [id number] [place] [address]- 2546 Sep, Sciatica of left side M54.32 [facility] [id number] [place] [address]- 2546 Sep, Sciatica of left side M54.32 [facility] [address] [place] [address]- 2546 Sep, Sciatica of left side M54.32 [facility] [address] [facility] [id number] [place] [address]- 2546 Aug, Sciatica of left side M54.32 [facility] [id number] [place] [address], [place] [address]- 2546 Aug, [facility] [id number] [place] [address]- 2546 Jun, Sciatica of left side M54.32 [facility] [address] [place] [address]- 2546 Jun, [facility] [id number] [place] [address] 2546 Jun, [facility] [address] [place] [address]- 2546 May, [facility] [address] [place] [address]- 2546 May, [facility], [facility] [id number] [place] [address]- 2546 Apr, [facility], [facility] [id number] [place] [address]- 2546 Apr, Sciatica of left side M54.32 [facility] [id number] [place] [address]- 2546 Mar, [facility], [facility] [address] [place] [address]- 8074 Feb, [facility] [address] [facility] [id number] [address]- 0765 Jan, [facility] [id number] [address]- 4256 Jan, Sciatica of left side M54.32 [place] [id number] [address]- 7733 Dec, History of liver transplant Z94.4 and Sciatica of left side M54.32 [place] [address] [facility] [id number] [address]- 4306 Oct, IMMUNIZATIONS No Known Immunizations SOCIAL HISTORY [...]
--- OUTSIDE RECORDS SUMMARY | 2018-09-27 16:34 | XMS REPORT ---
Author Author TEREZA JAVIER Organization [facility] Address [address] [place] [address] Care Team Providers Care Price Changer Name Role Phone TEREZA JAVIER Unavailable PROBLEMS Type Condition ICD9-CM Code GSA91-QW Code Onset Dates Condition Status SNOMED Code Problem ZOSTAVAX DX V05.8 Active 02166528 Problem Other chronic pain G89.29 Active 61366412 Problem Chronic obstructive pulmonary disease, unspecified COPD type J44.9 Active 22579970 Problem Sciatica of left side M54.32 Active 08973402 Problem History of liver transplant Z94.4 Active 736127418 Problem Reactive depression F32.9 Active 59645222 Problem Essential hypertension I10 Active 46125493 ALLERGIES Substance Reaction Event Type Date Status Codeine Phosphate itching Drug Allergy May, Active ENCOUNTERS Encounter Location Date Diagnosis [facility] [id number] [place] [address] 10249- 0128 May, [facility] [id number] [place] [address] 81547- 9508 May, History of liver transplant Z94.4 [facility] [address] [place] [address] 02165- 0151 May, Other chronic pain G89.29 [facility] [id number] [place] [address] 26837- 2846 May, [facility] [id number] [place] [address] 57422- 4478 Apr, History of liver transplant Z94.4 [facility] [id number] [place] [address] 97002- 3261 Mar, History of liver transplant Z94.4 [facility] [address] [place] [address]- 3994 Feb, History of liver transplant Z94.4 [facility] [id number] [place] [address] 11510- 6838 Jan, History of liver transplant Z94.4 [facility] [id number] [place] [address] 61454- 6751 Jan, Encounter for long-term opiate analgesic use Z79.891 [facility] [id number] [place] [address] 11876- 1556 Jan, [facility] [id number] [place] [address] 60053- 2628 Dec, History of liver transplant Z94.4 [facility] [id number] [place] [address] 52039- 1580 Dec, Other chronic pain G89.29 ; Unspecified abdominal pain R10.9 and Sciatica of left side M54.32 [facility] [id number] [place] [address] 75466- 6666 November, History of liver transplant Z94.4 [facility] [id number] [place] [address] 58506- 1935 Oct, History of liver transplant Z94.4 [facility] [id number] [place] [address] 27450- 7941 Oct, History of liver transplant Z94.4 [facility] [id number] [place] [address] 58314- 0346 Oct, Sciatica of left side M54.32 [facility] [id number] [place] [address] 31332- 5903 Sep, [facility] [address] [place] [address] 93243- 5910 Sep, Sciatica of left side M54.32 and Flu-like symptoms R68.89 [facility] [address] [place] [address] 47155- 7737 Sep, Sciatica of left side M54.32 [facility] [id number] [place] [address] 67639- 1586 Aug, History of liver transplant Z94.4 [facility] [id number] [place] [address] 87633- 5216 Aug, Sciatica of left side M54.32 [facility] [id number] [place] [address] 98789- 2136 Jul, Generalized edema R60.1 [facility] [address] 82621- 6336 Jun, Sciatica of left side M54.32 [facility] [id number] [place] [address] 84719- 8026 Jun, Sciatica of left side M54.32 [facility] [address] 16490- 9804 May, Sciatica of left side M54.32 ; Encounter for immunization Z23 ; History of liver transplant Z94.4 and Chronic obstructive pulmonary disease, unspecified COPD type J44.9 [facility] [id number] [place] [address] 22873- 2797 May, Sciatica of left side M54.32 [facility] [id number] [place] [address] 31657- 6990 Apr, Sciatica of left side M54.32 [facility] [id number] [place] [address] 72282- 4062 15 Mar, 2017 Sciatica of left side M54.32 [facility] [id number] [place] [address] 44301- 0386 07 Mar, 2017 Sciatica of left side M54.32 [facility] [id number] [place] [address] 71360- 8836 Feb, Sciatica of left side M54.32 [facility] [address] [place] [address] 2546 Jan, [facility] [id number] [place] [address], [place] [address] 2546 Jan, Essential hypertension I10 and Reactive depression F32.9 [facility] [id number] [place] [address], [place] [address] 2546 Jan, Sciatica of left side M54.32 [facility] [id number] [place] [address], [place] [address] 2546 Jan, [facility] [id number] [place] [address], [place] [address] 2546 Dec, [facility] [id number] [place] [address], [place] [address] 2546 Dec, Sciatica of left side M54.32 [facility] [id number] [place] [address], [place] [address] 2546 November, Sciatica of left side M54.32 [facility] [address] [place] [address] 2546 Oct, Sciatica of left side M54.32 [facility] [address] [place] [address] 2546 Sep, [facility] [address] [place] [address], [place] [address] 2546 Sep, Sciatica of left side M54.32 [facility] [address] [place] [address] 2546 Sep, Sciatica of left side M54.32 [facility] [address] [place] [address] 2546 Sep, Sciatica of left side M54.32 [facility] [id number] [address] 2546 Aug, Sciatica of left side M54.32 [facility] [address] [address]- 7026 Aug, [facility] [id number] [place] [address] 29657- 0626 Jun, Sciatica of left side M54.32 [facility] [address] [place] [address] 2546 Jun, [facility] [id number] [place] [address] 89769 2546 Jun, [facility] [id number] [place] [address], [place] [address]- 9486 May, [facility] [id number] [place] [address] 74829- 3766 May, [facility] [address] [place] [address] 79799- 0096 Apr, [facility] [id number] [place] [address] 18990- 7425 Apr, Sciatica of left side M54.32 [facility] [address] [place] [address] 00835- 8246 Mar, [facility] [id number] [address] 2546 Feb, [facility] [address] [address] 2546 Jan, [facility] [address] [address] 2546 Jan, Sciatica of left side M54.32 [facility] [id number] [address] 2546 Dec, History of liver transplant Z94.4 and Sciatica of left side M54.32 [facility] [address] [address] 2546 Oct, IMMUNIZATIONS No Known Immunizations SOCIAL HISTORY Never Assessed REASON FOR VISIT Hospital f/u -Rosemarie TELLO , got flu shot at [facility] last month Rosemarie Tello , toxic levels are severely high cant function and then bottoms out thru blood work Rosemarie Tello , congestion/cough / low grade fever at night / nausea / diarrhea / very tired - sleeps 7-8 hours at time and then goes to sleep again Rosemarie Tello , having scan on to see if he can do dialysis Rosemarie TELLO , had ulcers in stomach and esophagus cut out while at [facility] Rosemarie Tello PLAN OF CARE Activity Details Follow Up 3 Months Reason: VITAL SIGNS Height 72 in 2018-05-14 Weight 167.5 lbs 2018-05-14 Temperature 98.1 degrees Fahrenheit 2018-05-14 Heart Rate 54 bpm 2018-05-14 Respiratory Rate 20 2018-05-14 Oximetry on room air:99 % 2018-05-14 BMI 22.71 kg/m2 2018-05-14 Blood pressure systolic 130 mmHg 2018-05-14 Blood pressure diastolic 70 mmHg 2018-05-14 MEDICATIONS Medication Instructions Dosage Frequency Start Date End Date Duration Status Potassium 99 MG Orally Once a day 1 tablet 24h Active Lactulose 20 GM/30ML Orally 4 times a day 45 ml 6h Active OxyContin 80 MG Orally 3 times a day 1 tablet 8h Apr, 28 days Active Vitamin D 1000 UNIT Orally Once a day 1 tablet 24h Active Methylphenidate HCl 20 MG Orally Twice a day 1 tablet on an empty stomach 12h Aug, Active Carvedilol 6.25 MG Orally 2 times a day 1 tablet 12h Active Xifaxan 550 MG Orally Twice a day 1 tablet 12h Active Magnesium 500 MG Orally twice a day 1 tablet with a meal 12h Active Prograf 0.5 MG Orally Once a day 3 capsules 24h Active Symbicort 160-4.5 MCG/ACT Inhalation Twice a day 2 puffs 12h Active Oxycodone HCl 30 MG Orally every 4 hrs 1 tablet 4h Apr, 28 days Active Nebulizer - Active Zofran ODT 4 MG Orally every [...]
--- OUTSIDE RECORDS SUMMARY | 2018-09-27 16:34 | XMS REPORT ---
Author Author TEREZA JAVIER Organization [facility] Address [address] [place] [address] Care Team Providers Care Short Order Cook Name Role Phone TEREZA JAVIER Unavailable PROBLEMS Type Condition ICD9-CM Code HRQ78-HG Code Onset Dates Condition Status SNOMED Code Problem ZOSTAVAX DX V05.8 Active 42165377 Problem Other chronic pain G89.29 Active 20346111 Problem Chronic obstructive pulmonary disease, unspecified COPD type J44.9 Active 66631413 Problem Sciatica of left side M54.32 Active 41089591 Problem History of liver transplant Z94.4 Active 001007386 Problem Reactive depression F32.9 Active 86881499 Problem Essential hypertension I10 Active 62932284 ALLERGIES No Information ENCOUNTERS Encounter Location Date Diagnosis [facility] [id number] [place] [address] 58513- 1489 May, [facility] [address] 67944- 1493 May, [facility] [id number] [place] [address] 04769- 2840 May, [facility] [id number] [place] [address] 82122- 2841 May, History of liver transplant Z94.4 [facility] [id number] [place] [address] 87679- 3038 May, Other chronic pain G89.29 [facility] [address] 68054- 8824 May, [facility] [id number] [place] [address] 75277- 6955 Apr, History of liver transplant Z94.4 [facility] [address], [place] [address]- 0290 Mar, History of liver transplant Z94.4 [facility] [id number] [place] [address] 79610- 6961 Feb, History of liver transplant Z94.4 [facility] [id number] [place] [address] 84403- 5396 Jan, History of liver transplant Z94.4 [facility] [id number] [place] [address] 88777- 0405 Jan, Encounter for long-term opiate analgesic use Z79.891 [facility] [id number] [place] [address] 18099- 3822 Jan, [facility] [id number] [place] [address] 55674- 1358 Dec, History of liver transplant Z94.4 [facility] [id number] [place] [address] 39125- 4060 Dec, Other chronic pain G89.29 ; Unspecified abdominal pain R10.9 and Sciatica of left side M54.32 [facility] [id number] [place] [address] 46085- 6655 November, History of liver transplant Z94.4 [facility] [address] [place] [address] 26697- 2873 Oct, History of liver transplant Z94.4 [facility] [address] [place] [address] 10837- 3099 Oct, History of liver transplant Z94.4 [facility] [id number] [place] [address] 54077- 7716 Oct, Sciatica of left side M54.32 [facility] [address] [place] [address] 60894- 1897 Sep, [facility] [id number] [place] [address] 53114- 7664 Sep, Sciatica of left side M54.32 and Flu-like symptoms R68.89 [facility] [id number] [place] [address] 62009- 0232 Sep, Sciatica of left side M54.32 [facility] [id number] [place] [address] 82049- 8784 Aug, History of liver transplant Z94.4 [facility] [id number] [place] [address] 47733- 2178 Aug, Sciatica of left side M54.32 [facility] [id number] [place] [address] 07197- 5301 Jul, Generalized edema R60.1 [facility] [id number] [place] [address] 36679- 9280 Jun, Sciatica of left side M54.32 [facility] [id number] [place] [address] 68099- 8314 Jun, Sciatica of left side M54.32 [facility] [id number] [place] [address] 74460- 2959 May, Sciatica of left side M54.32 ; Encounter for immunization Z23 ; History of liver transplant Z94.4 and Chronic obstructive pulmonary disease, unspecified COPD type J44.9 [facility] [id number] [place] [address] 05637- 0183 May, Sciatica of left side M54.32 [facility] [id number] [place] [address] 38944- 3953 10 Apr, 2017 Sciatica of left side M54.32 [facility] [id number] [place] [address] 21675- 7121 15 Mar, 2017 Sciatica of left side M54.32 [facility] [id number] [place] [address] 36625- 1431 Mar, Sciatica of left side M54.32 [facility] [address], [place] [address]- 5936 Feb, Sciatica of left side M54.32 [facility] [id number] [place] [address] 81979 2546 Jan, [facility] [id number] [place] [address] 91533 2546 Jan, Essential hypertension I10 and Reactive depression F32.9 [facility] [id number] [place] [address] 81550 2546 Jan, Sciatica of left side M54.32 [facility] [id number] [place] [address] 37803 2546 Jan, [facility] [id number] [place] [address] 12330 2546 Dec, [facility] [id number] [place] [address] 02733 2546 Dec, Sciatica of left side M54.32 [facility] [id number] [place] [address] 03808- 8256 November, Sciatica of left side M54.32 [facility] [id number] [place] [address] 11831 2546 Oct, Sciatica of left side M54.32 [facility] [id number] [place] [address] 49649 2546 Sep, [facility] [address] [place] [address] 11968 2546 Sep, Sciatica of left side M54.32 [facility] [id number] [place] [address] 55819 2546 Sep, Sciatica of left side M54.32 [facility] [id number] [place] [address] 72892 2546 Sep, Sciatica of left side M54.32 [facility] [address] [facility] [id number] [place] [address] 2546 Aug, Sciatica of left side M54.32 [facility] [address] [facility] [id number] [place] [address]- 2546 Aug, [facility] [id number] [place] [address] 2546 Jun, Sciatica of left side M54.32 [facility] [address] [facility] [id number] [place] [address] 2546 Jun, [facility] [id number] [place] [address], [place] [address] 2546 Jun, [facility] [id number] [place] [address] 2546 May, [facility] [id number] [place] [address], [place] [address] 2546 May, [facility] [id number] [place] [address] 2546 Apr, [facility] [id number] [place] [address] 2546 Apr, Sciatica of left side M54.32 [facility] [id number] [place] [address] 2546 Mar, [facility] [id number] [address] 2546 Feb, [facility] [id number] [place] [address] 2546 Jan, [facility] [id number], [place] [address] 2546 Jan, Sciatica of left side M54.32 [facility] [id number] [place] [address] 2546 Dec, History of liver transplant Z94.4 and Sciatica of left side M54.32 [facility] [address] [facility] [id number] [place] [address]- 3335 Oct, IMMUNIZATIONS No Known Immunizations SOCIAL HISTORY Never Assessed REASON FOR VISIT Routine nurse call PLAN OF CARE VITAL SIGNS MEDICATIONS [...] Bob Jul 2017 Hospitalization History bob for [facility] 04/25
--- OUTSIDE RECORDS SUMMARY | 2018-09-27 16:34 | XMS REPORT ---
Author Author TEREZA JAVIER Organization [facility] Address [address] [place] [address] Care Team Providers Care Personal Care Home Administrator Name Role Phone TEREZA JAVIER Unavailable PROBLEMS Type Condition ICD9-CM Code [id number] Code Onset Dates Condition Status SNOMED Code Problem ZOSTAVAX DX V05.8 Active 02465098 Problem Other chronic pain G89.29 Active 80152211 Problem Chronic obstructive pulmonary disease, unspecified COPD type J44.9 Active 88453163 Problem Sciatica of left side M54.32 Active 87035665 Problem History of liver transplant Z94.4 Active 116273721 Problem Reactive depression F32.9 Active 90828716 Problem Essential hypertension I10 Active 87483307 ALLERGIES No Information ENCOUNTERS Encounter Location Date Diagnosis [place] [id number] [place] [address] 37654- 8810 May, History of liver transplant Z94.4 [facility] [id number] [place] [address] 75857- 8454 May, Other chronic pain G89.29 [facility] [id number] [place] [address] 64186- 7941 May, [facility] [id number] [place] [address] 58563- 4182 Apr, History of liver transplant Z94.4 [facility] [id number] [place] [address] 41833- 2047 Mar, History of liver transplant Z94.4 [facility] [id number] [place] [address] 45159- 7234 Feb, History of liver transplant Z94.4 [facility] [id number] [place] [address] 14511- 7974 Jan, History of liver transplant Z94.4 [facility] [address], [place] [address] 4957 Jan, Encounter for long-term opiate analgesic use Z79.891 [facility] [id number] [place] [address] 38218- 8227 Jan, [facility] [id number] [place] [address] 91632- 5202 Dec, History of liver transplant Z94.4 [facility] [id number] [place] [address] 16419- 2745 Dec, Other chronic pain G89.29 ; Unspecified abdominal pain R10.9 and Sciatica of left side M54.32 [place] [id number] [place] [address] 46052- 3824 November, History of liver transplant Z94.4 [facility] [id number] [place] [address] 74390- 9421 Oct, History of liver transplant Z94.4 [facility] [id number] [place] [address] 91405- 3553 Oct, History of liver transplant Z94.4 [facility] [id number] [place] [address] 86278- 9606 Oct, Sciatica of left side M54.32 [facility] [id number] [place] [address] 01040- 3340 Sep, [facility] [address] [place] [address] 25152- 8721 Sep, Sciatica of left side M54.32 and Flu-like symptoms R68.89 [facility] [id number] [place] [address] 71761- 0613 Sep, Sciatica of left side M54.32 [facility] [id number] [place] [address] 77372- 0977 Aug, History of liver transplant Z94.4 [facility] [id number] [place] [address] 47733- 5917 Aug, Sciatica of left side M54.32 [facility] [id number] [place] [address] 51217- 4466 Jul, Generalized edema R60.1 [facility] [address] 72689- 6176 Jun, Sciatica of left side M54.32 [facility] [id number] [place] [address] 35867- 7386 Jun, Sciatica of left side M54.32 [facility] [id number] [place] [address] 85571- 6858 May, Sciatica of left side M54.32 ; Encounter for immunization Z23 ; History of liver transplant Z94.4 and Chronic obstructive pulmonary disease, unspecified COPD type J44.9 [facility] [id number] [place] [address] 03863- 6671 May, Sciatica of left side M54.32 [facility] [id number] [place] [address] 67442- 7787 Apr, Sciatica of left side M54.32 [facility] [id number] [place] [address] 75036- 9899 15 Mar, 2017 Sciatica of left side M54.32 [facility] [id number] [place] [address] 62819- 5782 07 Mar, 2017 Sciatica of left side M54.32 [facility] [id number] [place] [address] 81233- 0993 Feb, Sciatica of left side M54.32 [facility] [id number] [place] [address] 93225- 3323 Jan, [facility] [address] [place] [address]- 0536 Jan, Essential hypertension I10 and Reactive depression F32.9 [facility] [id number] [place] [address] 00888 2546 Jan, Sciatica of left side M54.32 [facility] [id number] [place] [address] 28724 2546 Jan, [facility] [id number] [place] [address] 79163 2546 Dec, [facility] [id number] [place] [address] 40372 2546 Dec, Sciatica of left side M54.32 [facility] [id number] [place] [address] 06243 2546 November, Sciatica of left side M54.32 [facility] [id number] [place] [address] 60706 2546 Oct, Sciatica of left side M54.32 [facility] [id number] [place] [address] 87115 2546 Sep, [facility] [id number] [place] [address] 46970 2546 Sep, Sciatica of left side M54.32 [facility] [address], [place] [address] 2546 Sep, Sciatica of left side M54.32 [facility] [address], [place] [address] 2546 Sep, Sciatica of left side M54.32 [facility] [id number] [place] [address] 14789 2546 Aug, Sciatica of left side M54.32 [facility] [address], [place] [address]- 2546 Aug, [facility] [id number] 4085 Jun, Sciatica of left side M54.32 [facility] [address], [place] [address]- 8136 Jun, [facility] [address], [place] [address]- 2546 Jun, [facility] [id number] [place] [address] 72346- 0105 May, [facility] [address] [place] [address] 43317 254 May, [facility] [id number] [place] [address] 017129- 6945 Apr, [facility] [id number] [place] [address] 663935- 7861 Apr, Sciatica of left side M54.32 [facility] [id number] [place] [address] 325869- 9837 Mar, [facility] [address] [place] [address] 979065- 0282 Feb, [facility] [address] [place] [address] 438589- 2059 Jan, [facility] [address] 4569 Jan, Sciatica of left side M54.32 [facility] [address] 4202 Dec, History of liver transplant Z94.4 and Sciatica of left side M54.32 [facility] [address], [place] [address]- 0316 Oct, IMMUNIZATIONS No Known Immunizations SOCIAL HISTORY Never Assessed REASON FOR VISIT Controlled Med Refill 05/17 PLAN OF CARE VITAL SIGNS MEDICATIONS Medication Instructions Dosage Frequency Start Date End Date Duration Status OxyContin 80 MG Orally 3 times a day 1 tablet 8h May, 28 days Active Oxycodone HCl 30 MG Orally every 4 hrs 1 tablet 4h May, 28 days Active RESULTS No Results PROCEDURES No Known procedures INSTRUCTIONS MEDICATIONS ADMINISTERED No Known Medications MEDICAL (GENERAL) HISTORY Type Description Date Medical History cirrhosis of liver Medical History liver transplant Medical History ulcers Surgical History liver transplant Surgical History kidney biopsy Surgical History endoscopy for ulcers 04/25 Hospitalization History liver transplant Hospitalization History Bob Jul 2017 Hospitalization History elias for uclers 04/25
--- OUTSIDE RECORDS SUMMARY | 2018-09-27 16:34 | XMS REPORT ---
Author Author TEREZA JAVIER Organization [facility] Address [address] [place] [address] Care Team Providers Care Vacuum Spindle Sander Name Role Phone TEREZA JAVIER Unavailable PROBLEMS Type Condition ICD9-CM Code [id number] Code Onset Dates Condition Status SNOMED Code Problem ZOSTAVAX DX V05.8 Active 23946351 Problem Other chronic pain G89.29 Active 48999085 Problem Chronic obstructive pulmonary disease, unspecified COPD type J44.9 Active 64051848 Problem Sciatica of left side M54.32 Active 49335513 Problem History of liver transplant Z94.4 Active 127698612 Problem Reactive depression F32.9 Active 72335394 Problem Essential hypertension I10 Active 14749362 ALLERGIES No Information ENCOUNTERS Encounter Location Date Diagnosis [place] [id number] [place] [address] 27268- 5167 May, Other chronic pain G89.29 [place] [id number] [place] [address] 86056- 1861 May, [place] [id number] [place] [address] 77209- 9584 Apr, History of liver transplant Z94.4 [place] [id number] [place] [address] 99665- 9243 Mar, History of liver transplant Z94.4 [place] [id number] [place] [address] 38140- 1885 Feb, History of liver transplant Z94.4 [place] [id number] [place] [address] 01189- 9261 Jan, History of liver transplant Z94.4 [place] [address] 35314- 1349 Jan, Encounter for long-term opiate analgesic use Z79.891 [facility] [id number] [place] [address] 43951- 9738 Jan, [facility] [id number] [place] [address] 38323- 9744 Dec, History of liver transplant Z94.4 [facility] [id number] [place] [address] 32852- 8562 Dec, Other chronic pain G89.29 ; Unspecified abdominal pain R10.9 and Sciatica of left side M54.32 [place] [id number] [place] [address] 07496- 6459 November, History of liver transplant Z94.4 [place] [id number] [place] [address] 11009- 1625 Oct, History of liver transplant Z94.4 [facility] [id number] [place] [address] 57521- 2171 Oct, History of liver transplant Z94.4 [place] [id number] [place] [address] 84642- 1768 Oct, Sciatica of left side M54.32 [place] [id number] [place] [address] 97581- 4520 Sep, [facility] [id number] [place] [address] 01423- 9364 Sep, Sciatica of left side M54.32 and Flu-like symptoms R68.89 [facility] [id number] [place] [address] 01354- 3632 Sep, Sciatica of left side M54.32 [facility] [id number] [place] [address] 19145- 6236 Aug, History of liver transplant Z94.4 [facility] [id number] [place] [address] 12300- 0743 Aug, Sciatica of left side M54.32 [facility] [id number] [place] [address] 95368- 6114 Jul, Generalized edema R60.1 [facility] [id number] [place] [address] 85472- 7195 Jun, Sciatica of left side M54.32 [facility] [address] 56229- 1979 Jun, Sciatica of left side M54.32 [facility] [id number] [place] [address] 35746- 6705 May, Sciatica of left side M54.32 ; Encounter for immunization Z23 ; History of liver transplant Z94.4 and Chronic obstructive pulmonary disease, unspecified COPD type J44.9 [place] [address] 03047- 0062 May, Sciatica of left side M54.32 [place] [id number] [place] [address] 12437- 2689 Apr, Sciatica of left side M54.32 [place] [id number] [place] [address] 27979- 1337 15 Mar, 2017 Sciatica of left side M54.32 [place] [id number] [place] [address] 69258- 6223 Mar, Sciatica of left side M54.32 [facility] [id number] [place] [address] 90191- 7112 Feb, Sciatica of left side M54.32 [facility] [address] 91334- 2560 Jan, [facility] [id number] [place] [address] 88932- 4549 Jan, Essential hypertension I10 and Reactive depression F32.9 [place] [address] [address] 2546 Jan, Sciatica of left side M54.32 [facility] [address] [place] [address] 2546 Jan, [facility] [address], [place] [address] 2546 Dec, [facility] [id number] [place] [address] 24969 2546 Dec, Sciatica of left side M54.32 [facility] [address] [place] [address], [place] [address] 2546 November, Sciatica of left side M54.32 [facility] [address] [place] [address] 2546 Oct, Sciatica of left side M54.32 [facility] [id number] [place] [address], [place] [address] 2546 Sep, [facility] [address] [place] [address] 15183 2546 Sep, Sciatica of left side M54.32 [facility] [address] [place] [address] 2546 Sep, Sciatica of left side M54.32 [facility] [address] [place] [address] 2546 Sep, Sciatica of left side M54.32 [facility] [address] [place] [address] 2546 Aug, Sciatica of left side M54.32 [facility] [address] [place] [address]- 2546 Aug, [facility] [address], [place] [address] 2546 Jun, Sciatica of left side M54.32 [facility] [address] [address] 2546 Jun, [facility] [address], [place] [address]- 4974 Jun, [facility] [address], [place] [address]- 5566 May, [facility] [address], [place] [address]- 7748 May, [facility] [address], [place] [address]- 6901 Apr, [facility] [address] [place] [address] 71228- 2594 Apr, Sciatica of left side M54.32 [facility] [address], [place] [address]- 6923 Mar, [facility] [address], [place] [address]- 9433 Feb, [facility] [address]- 3973 Jan, [facility] [address] 1197 Jan, Sciatica of left side M54.32 [facility] [address], [place] [address]- 3101 Dec, History of liver transplant Z94.4 and Sciatica of left side M54.32 [facility] [address], [place] [address]- 5579 Oct, IMMUNIZATIONS No Known Immunizations SOCIAL HISTORY [...]
--- OUTSIDE RECORDS SUMMARY | 2018-09-27 16:34 | XMS REPORT ---
Author Author TEREZA JAVIER Organization [facility] Address [address] [place] [address] Care Team Providers Care Biomedical Equipment Support Specialist Name Role Phone TEREZA JAVIER Unavailable PROBLEMS Type Condition ICD9-CM Code CPG07-RD Code Onset Dates Condition Status SNOMED Code Problem ZOSTAVAX DX V05.8 Active 10587252 Problem Other chronic pain G89.29 Active 84901418 Problem Chronic obstructive pulmonary disease, unspecified COPD type J44.9 Active 85612955 Problem Sciatica of left side M54.32 Active 59838568 Problem History of liver transplant Z94.4 Active 325281099 Problem Reactive depression F32.9 Active 34227964 Problem Essential hypertension I10 Active 22899236 ALLERGIES No Information ENCOUNTERS Encounter Location Date Diagnosis [place] [id number] [place] [address] 47002- 8356 Apr, History of liver transplant Z94.4 [place] [id number] [place] [address] 08890- 2489 Mar, History of liver transplant Z94.4 [place] [id number] [place] [address] 22629- 6892 Feb, History of liver transplant Z94.4 [place] [id number] [place] [address] 06657- 1342 Jan, History of liver transplant Z94.4 [place] [address] 36287- 4306 05 Jan, 2018 Encounter for long-term opiate analgesic use Z79.891 [place] [id number] [place] [address] 47254- 3895 02 Jan, 2018 [place] [address] 08489- 3840 Dec, History of liver transplant Z94.4 [facility] [id number] [place] [address] 55141- 4737 Dec, Other chronic pain G89.29 ; Unspecified abdominal pain R10.9 and Sciatica of left side M54.32 [facility] [id number] [place] [address] 39471- 2996 November, History of liver transplant Z94.4 [facility] [id number] [place] [address] 81045- 3626 Oct, History of liver transplant Z94.4 [facility] [id number] [place] [address] 40518- 1416 Oct, History of liver transplant Z94.4 [facility] [id number] [place] [address] 92270- 9146 Oct, Sciatica of left side M54.32 [facility] [id number] [place] [address] 03989- 9261 Sep, [facility] [id number] [place] [address] 18802- 9504 Sep, Sciatica of left side M54.32 and Flu-like symptoms R68.89 [facility] [id number] [place] [address] 55255- 1866 Sep, Sciatica of left side M54.32 [facility] [id number] [place] [address] 74989- 3660 Aug, History of liver transplant Z94.4 [facility] [id number] [place] [address] 26522- 1336 Aug, Sciatica of left side M54.32 [facility] [id number] [place] [address] 24582- 3506 Jul, Generalized edema R60.1 [facility] [id number] [place] [address] 40406- 0990 Jun, Sciatica of left side M54.32 [facility] [id number] [place] [address] 588545- 0046 Jun, Sciatica of left side M54.32 [facility] [address] [place] [address] 40960- 2177 May, Sciatica of left side M54.32 ; Encounter for immunization Z23 ; History of liver transplant Z94.4 and Chronic obstructive pulmonary disease, unspecified COPD type J44.9 [facility] [id number] [place] [address] 10368- 6896 May, Sciatica of left side M54.32 [facility] [address] [place] [address] 47548- 3152 Apr, Sciatica of left side M54.32 [facility] [address] 97058- 3602 15 Mar, 2017 Sciatica of left side M54.32 [facility] [id number] [place] [address] 03706- 9629 07 Mar, 2017 Sciatica of left side M54.32 [facility] [address] [place] [address] 53594- 1347 Feb, Sciatica of left side M54.32 [facility] [id number] [place] [address] 91531- 0937 Jan, [facility] [address] [place] [address] 43824- 8673 Jan, Essential hypertension I10 and Reactive depression F32.9 [facility] [id number] [place] [address] 84497- 2704 Jan, Sciatica of left side M54.32 [facility] [id number] [place] [address] 34138- 1444 Jan, [facility] [id number] [place] [address] 2546 Dec, [facility] [address] [place] [address], [place] [address] 2546 Dec, Sciatica of left side M54.32 [facility] [address] [place] [address] 2546 November, Sciatica of left side M54.32 [facility] [id number] [place] [address], [place] [address] 2546 Oct, Sciatica of left side M54.32 [facility] [address] [place] [address], [place] [address] 2546 Sep, [facility] [address] [place] [address], [place] [address] 2546 Sep, Sciatica of left side M54.32 [facility] [address] [place] [address], [place] [address] 2546 Sep, Sciatica of left side M54.32 [facility] [address] [place] [address] 2546 Sep, Sciatica of left side M54.32 [facility] [address] [place] [address] 2546 Aug, Sciatica of left side M54.32 [facility] [address] [place] [address] 2546 Aug, [facility] [address], [place] [address] 2546 Jun, Sciatica of left side M54.32 [facility] [address] [place] [address]- 2546 Jun, [facility] [address] [place] [address]- 2546 Jun, [facility] [address] [address]- 2546 May, [facility] [address] [place] [address]- 4026 May, [facility] [address], [place] [address]- 5806 Apr, [facility] [address], [place] [address] 2546 Apr, Sciatica of left side M54.32 [facility] [address], [place] [address] 2546 Mar, [facility] [address], [place] [address]- 1556 Feb, [facility] [address], [place] [address]- 5866 Jan, [facility] [address], [place] [address]- 7746 Jan, Sciatica of left side M54.32 [facility] [address], [place] [address]- 4539 Dec, History of liver transplant Z94.4 and Sciatica of left side M54.32 [facility] [address], [place] [address]- 2126 Oct, IMMUNIZATIONS No Known Immunizations SOCIAL HISTORY Never Assessed REASON FOR VISIT Controlled Med Refill PLAN OF CARE VITAL SIGNS MEDICATIONS Medication Instructions Dosage Frequency Start Date End Date Duration Status OxyContin 80 MG Orally 3 times a day 1 tablet 8h Apr, 28 days Active Oxycodone HCl 30 MG Orally every 4 hrs 1 tablet 4h Apr, 28 days Active RESULTS No Results PROCEDURES No Known procedures INSTRUCTIONS MEDICATIONS ADMINISTERED No Known Medications MEDICAL (GENERAL) HISTORY Type Description Date Medical History cirrhosis of liver Medical History liver transplant Surgical History liver transplant Surgical History kidney biopsy Hospitalization History liver transplant Hospitalization History [facility] Jul 2017
--- OUTSIDE RECORDS SUMMARY | 2018-09-27 16:34 | XMS REPORT ---
Author Author TEREZA JAVIER Organization 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 Name Role Phone TEREZA JAVIER Unavailable PROBLEMS Type Condition ICD9-CM Code NVL21-GB Code Onset Dates Condition Status SNOMED Code Problem ZOSTAVAX DX V05.8 Active 86299162 Problem Other chronic pain G89.29 Active 38540154 Problem Chronic obstructive pulmonary disease, unspecified COPD type J44.9 Active 74624569 Problem Sciatica of left side M54.32 Active 98957450 Problem History of liver transplant Z94.4 Active 785511832 Problem Reactive depression F32.9 Active 50743940 Problem Essential hypertension I10 Active 45021695 ALLERGIES No Information ENCOUNTERS Encounter Location Date Diagnosis [place] [id number] [place] [address] 37274- 8479 May, [place] [id number] [place] [address] 62732- 0253 May, History of liver transplant Z94.4 [place] [id number] [place] [address] 78434- 6015 06 May, 2018 Other chronic pain G89.29 [facility] [id number] [place] [address] 54328- 7099 May, [place] [id number] [place] [address] 24178- 6965 Apr, History of liver transplant Z94.4 [place] [id number] [place] [address] 39482- 2342 Mar, History of liver transplant Z94.4 [place] [id number] [place] [address] 19132- 8521 Feb, History of liver transplant Z94.4 [facility] [address], [place] [address]- 9797 Jan, History of liver transplant Z94.4 [facility] [address], [place] [address]- 6963 Jan, Encounter for long-term opiate analgesic use Z79.891 [facility] [id number] [place] [address] 93200- 7438 Jan, [facility] [id number] [place] [address] 41109- 9092 Dec, History of liver transplant Z94.4 [place] [id number] [place] [address] 78362- 4341 Dec, Other chronic pain G89.29 ; Unspecified abdominal pain R10.9 and Sciatica of left side M54.32 [facility] [id number] [place] [address] 19568- 6163 November, History of liver transplant Z94.4 [facility] [address], [place] [address]- 2860 Oct, History of liver transplant Z94.4 [facility] [address], [place] [address]- 7203 Oct, History of liver transplant Z94.4 [facility] [address], [place] [address]- 1144 Oct, Sciatica of left side M54.32 [facility] [address], [place] [address]- 4424 Sep, [facility] [id number] [place] [address] 58684- 0576 Sep, Sciatica of left side M54.32 and Flu-like symptoms R68.89 [facility] [address] [place] [address] 41840- 8216 Sep, Sciatica of left side M54.32 [facility] [id number] [place] [address] 84181- 4606 Aug, History of liver transplant Z94.4 [facility] [id number] [place] [address] 79220- 5056 Aug, Sciatica of left side M54.32 [facility] [id number] [place] [address] 49107- 8146 Jul, Generalized edema R60.1 [facility] [id number] [place] [address] 35235- 7404 Jun, Sciatica of left side M54.32 [facility] [id number] [place] [address] 55691- 8938 Jun, Sciatica of left side M54.32 [facility] [address] 05277- 1454 May, Sciatica of left side M54.32 ; Encounter for immunization Z23 ; History of liver transplant Z94.4 and Chronic obstructive pulmonary disease, unspecified COPD type J44.9 [facility] [id number] [place] [address] 02968- 5337 May, Sciatica of left side M54.32 [facility] [id number] [place] [address] 24589- 2905 Apr, Sciatica of left side M54.32 [facility] [id number] [place] [address] 42529- 6687 15 Mar, 2017 Sciatica of left side M54.32 [facility] [address] 15034- 0808 07 Mar, 2017 Sciatica of left side M54.32 [facility] [id number] [place] [address] 48704- 0347 18 Feb, 2017 Sciatica of left side M54.32 [facility] [address] [place] [address]- 5236 Jan, [facility] [id number] [place] [address] 42297 2546 Jan, Essential hypertension I10 and Reactive depression F32.9 [facility] [id number] [place] [address] 86825 2546 Jan, Sciatica of left side M54.32 [facility] [id number] [place] [address] 93041 2546 Jan, [facility] [id number] [place] [address] 35893 2546 Dec, [facility] [id number] [place] [address] 52389 2546 Dec, Sciatica of left side M54.32 [facility] [id number] [place] [address] 40411 2546 November, Sciatica of left side M54.32 [facility] [id number] [place] [address] 84532 2546 Oct, Sciatica of left side M54.32 [facility] [id number] [place] [address] 93921 2546 Sep, [facility] [id number] [place] [address] 50831 2546 Sep, Sciatica of left side M54.32 [facility] [id number] [place] [address] 38154 2546 Sep, Sciatica of left side M54.32 [facility] [id number] [place] [address] 77291 2546 Sep, Sciatica of left side M54.32 [facility] [address], [place] [address] 2546 Aug, Sciatica of left side M54.32 [facility] [id number] [address]- 0702 Aug, [facility] [address] [address]- 4833 Jun, Sciatica of left side M54.32 [facility] [address], [place] [address]- 1136 Jun, [facility] [id number] [place] [address] 70293- 0542 Jun, [facility] [id number] [place] [address] 71266- 8830 May, [facility] [id number] [place] [address] 112124- 5278 May, [facility] [id number] [place] [address] 536114- 1164 Apr, [facility] [id number] [place] [address] 48832- 9532 Apr, Sciatica of left side M54.32 [facility] [address] [address] 7478 Mar, [facility] [id number] [place] [address] 868609- 7952 Feb, [facility] [address], [place] [address]- 2199 Jan, [facility] [id number], [place] [address]- 7112 Jan, Sciatica of left side M54.32 [facility] [address], [place] [address]- 8141 Dec, History of liver transplant Z94.4 and Sciatica of left side M54.32 [facility] [address] [address]- 4584 Oct, IMMUNIZATIONS No Known Immunizations SOCIAL HISTORY Never Assessed REASON FOR VISIT medication question PLAN OF CARE VITAL SIGNS MEDICATIONS Unknown [...]
--- NOTE | 2018-09-27 16:40 | NUR ---
PT REFUSED X-RAY AND LABS AT THIS X
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
[2018-09-27] MEDS ORDERED: TETANUS,DIPTH,PERTUSS P/F (BOOSTRIX) 0.5 ML VIAL IM ONE (16:45)
[2018-09-27 16:55] VITALS: BP 159/84
== END 2018-09-27 16:51 | disposition left against medical advice (07) ==
LOC: EDUNIT# 16:26 → ER 16:28
DX: R41.0 Disorientation, unspecified (principal); R51 Headache; R10.9 Unspecified abdominal pain; J43.9 Emphysema, unspecified; F41.9 Anxiety disorder, unspecified; F32.9 Major depressive disorder, single episode, unspecified; Z87.19 Personal history of other diseases of the digestive system; Z85.05 Personal history of malignant neoplasm of liver; Z23 Encounter for immunization; Z87.448 Personal history of other diseases of urinary system; Z88.8 Allergy status to other drugs, medicaments and biological substances; Z88.5 Allergy status to narcotic agent; Z88.6 Allergy status to analgesic agent; Z91.041 Radiographic dye allergy status; Z94.4 Liver transplant status; Z77.22 Contact with and (suspected) exposure to environmental tobacco smoke (acute) (chronic)
CPT/HCPCS: 99283

== ENCOUNTER → 2018-10-09 | Outpatient (CLI) | payer MEDICAID ==
[2018-10-09 09:08] LABS: BASOPHILS % (AUTO) 1 % (0-10); EOSINOPHILS # (AUTO) 0.7 10^3/uL (0.0-0.3); EOSINOPHILS % (AUTO) 9 % (0-10); HEMATOCRIT 31 % (40-54); HEMOGLOBIN 10.4 G/DL (13.3-17.7); LYMPHOCYTES # (AUTO) 2.9 X 10^3 (1.0-4.0); LYMPHOCYTES % (AUTO) 37 % (12-44); MEAN CORPUSCULAR HEMOGLOBIN 31 PG (25-34); MEAN CORPUSCULAR HGB CONC 34 G/DL (32-36); MEAN CORPUSCULAR VOLUME 93 FL (80-99); MEAN PLATELET VOLUME 11.5 FL (7.4-10.4); MONOCYTES # (AUTO) 1.3 X 10^3 (0.0-1.0); MONOCYTES % (AUTO) 17 % (0-12); NEUTROPHILS # (AUTO) 2.9 X 10^3 (1.8-7.8); NEUTROPHILS % (AUTO) 37 % (42-75); PLATELET COUNT 111 10^3/uL (130-400); WHITE BLOOD COUNT 7.8 10^3/uL (4.3-11.0)
[2018-10-09 09:29] LABS: ALBUMIN 3.1 GM/DL (3.2-4.5); BILIRUBIN,DIRECT 0.4 MG/DL (0.0-0.3); BILIRUBIN,INDIRECT 0.4 MG/DL; BILIRUBIN,TOTAL 0.8 MG/DL (0.1-1.0); CREATININE SERUM 4.24 MG/DL (0.60-1.30); MAGNESIUM 1.6 MG/DL (1.8-2.4); PHOSPHORUS 3.3 MG/DL (2.3-4.7); TOTAL PROTEIN 6.8 GM/DL (6.4-8.2); URIC ACID 9.5 MG/DL (2.6-7.2)
== END ==
LOC: LAB 08:36
PROVIDERS: ATTEND Internal Medicine Nephrology
DX: N17.9 Acute kidney failure, unspecified (principal); D64.9 Anemia, unspecified; R60.9 Edema, unspecified; E87.6 Hypokalemia; I12.9 Hypertensive chronic kidney disease with stage 1 through stage 4 chronic kidney disease, or unspecified chronic kidney disease; N18.4 Chronic kidney disease, stage 4 (severe)
CPT/HCPCS: 36415; 80069; 80076; 82550; 82728; 83540; 83735; 83970; 84550; 85025

== ENCOUNTER → 2018-10-11 | Outpatient (CLI) | payer MEDICAID ==
[2018-10-11 11:01] LABS: CALCIUM 8.6 MG/DL (8.5-10.1); CREATININE SERUM 4.29 MG/DL (0.60-1.30); PHOSPHORUS 4.8 MG/DL (2.3-4.7); POTASSIUM 4.8 MMOL/L (3.6-5.0)
== END ==
LOC: LAB 10:34
PROVIDERS: ATTEND Internal Medicine Nephrology
DX: N18.4 Chronic kidney disease, stage 4 (severe) (principal); N17.9 Acute kidney failure, unspecified
CPT/HCPCS: 36415; 80069

== ENCOUNTER 2018-10-24 12:05 | Emergency (ER) | payer MEDICAID ==
[~2018-10-24] VITALS: Ht 188 cm; Wt 78.5 kg
[2018-10-24] MEDS ORDERED: ASPIRIN 81 MG CHEW (CHILDREN'S ASA) PO ONE (12:15)
[2018-10-24 12:35] LABS: BASOPHILS % (AUTO) 0 % (0-10); EOSINOPHILS # (AUTO) 0.3 10^3/uL (0.0-0.3); EOSINOPHILS % (AUTO) 3 % (0-10); HEMATOCRIT 26 % (40-54); HEMOGLOBIN 8.6 G/DL (13.3-17.7); LYMPHOCYTES # (AUTO) 1.4 X 10^3 (1.0-4.0); LYMPHOCYTES % (AUTO) 16 % (12-44); MEAN CORPUSCULAR HEMOGLOBIN 32 PG (25-34); MEAN CORPUSCULAR HGB CONC 33 G/DL (32-36); MEAN CORPUSCULAR VOLUME 96 FL (80-99); MEAN PLATELET VOLUME 11.6 FL (7.4-10.4); MONOCYTES # (AUTO) 2.2 X 10^3 (0.0-1.0); MONOCYTES % (AUTO) 24 % (0-12); NEUTROPHILS # (AUTO) 5.1 X 10^3 (1.8-7.8); NEUTROPHILS % (AUTO) 57 % (42-75); PLATELET COUNT 94 10^3/uL (130-400); RED CELL DISTRIBUTION WIDTH 15.6 % (10.0-14.5); WHITE BLOOD COUNT 8.9 10^3/uL (4.3-11.0)
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
--- NOTE | 2018-10-24 12:50 | NUR ---
SEE LIST FROM LAST HOSPITALIZATION FROM [facility] CURRENT MED LIST
[2018-10-24 12:53] LABS: INR 1.4 (0.8-1.4); PROTHROMBIN TIME PATIENT 18.1 SEC (12.2-14.7)
[2018-10-24] MEDS ORDERED: RT-ALBUTEROL/IPRATROPIUM 3 ML (DUONEB) VIAL INH ONE (13:00)
[2018-10-24 13:02] LABS: ALANINE AMINOTRANSFERASE 8 U/L (0-55); ALBUMIN 3.1 GM/DL (3.2-4.5); ALKALINE PHOSPHATASE 101 U/L (40-136); BILIRUBIN,TOTAL 1.4 MG/DL (0.1-1.0); BUN/CREATININE RATIO 12; CALCIUM 8.4 MG/DL (8.5-10.1); CARBON DIOXIDE 20 MMOL/L (21-32); CHLORIDE 112 MMOL/L (98-107); CREATININE SERUM 3.05 MG/DL (0.60-1.30); GFR ESTIMATED 21; GLUCOSE 94 MG/DL (70-105); MAGNESIUM 1.3 MG/DL (1.8-2.4); POTASSIUM 4.8 MMOL/L (3.6-5.0); SODIUM 140 MMOL/L (135-145)
[2018-10-24 13:12] LABS: EOSINOPHILS % (MANUAL) 5 %; LYMPHOCYTES % (MANUAL) 17 %; MONOCYTES % (MANUAL) 16 %; NEUTROPHILS % (MANUAL) 62 %; RBC MORPH NORMAL
--- NOTE | 2018-10-24 13:15 | Diagnostic Imaging Report ---
INDICATION: Shortness of air. TIME OF EXAM: 12:51 p.m. COMPARISON: Correlation is made with prior study from 04/15/2018. FINDINGS: Patient has developed airspace infiltrates in bilateral lower lobes consistent with pneumonia. Upper lung rodrigues are clear. No effusion or pneumothorax is seen. IMPRESSION: Bilateral lower lobe airspace pulmonary infiltrates consistent with pneumonia. Dictated by: Dictated on workstation # [id number]
[2018-10-24] MEDS ORDERED: PIPERACILLIN/TAZOBACTAM (BULK) 4.5 GM in NS (IVPB) 100 ML IV ONE (13:30)
[2018-10-24] MEDS ORDERED: FUROSEMIDE 40 MG/4 ML INJ (LASIX) IVP ONE (13:30)
--- NOTE | 2018-10-24 13:42 | NUR ---
CONSENT FOR TRANFER SIGNED
--- NOTE | 2018-10-24 14:40 | NUR ---
[id number] NOTIFIED OF TRANSFER, REPORT TO KATH SINGER
[2018-10-24 15:24] VITALS: BP 164/88
== END 2018-10-24 15:24 | disposition short-term general hospital (02) ==
LOC: EDUNIT# 12:05 → ER 12:06
DX: J18.9 Pneumonia, unspecified organism (principal); N18.6 End stage renal disease; J43.9 Emphysema, unspecified; F41.9 Anxiety disorder, unspecified; F32.9 Major depressive disorder, single episode, unspecified; Z99.2 Dependence on renal dialysis; Z88.8 Allergy status to other drugs, medicaments and biological substances; Z87.19 Personal history of other diseases of the digestive system; Z85.05 Personal history of malignant neoplasm of liver; Z88.5 Allergy status to narcotic agent; Z88.6 Allergy status to analgesic agent; Z91.041 Radiographic dye allergy status; Z77.22 Contact with and (suspected) exposure to environmental tobacco smoke (acute) (chronic); Z94.4 Liver transplant status
CPT/HCPCS: 36415; 71045; 80053; 82140; 83605; 83735; 83874; 83880; 84484; 85007; 85027; 85610; 85730; 87040; 93005; 93041; 94640

== ENCOUNTER → 2018-11-29 | Outpatient (CLI) | payer MEDICAID ==
[2018-11-29 08:08] LABS: BASOPHILS # (AUTO) 0.1 10^3/uL (0.0-0.1); BASOPHILS % (AUTO) 1 % (0-10); EOSINOPHILS # (AUTO) 0.8 10^3/uL (0.0-0.3); EOSINOPHILS % (AUTO) 8 % (0-10); HEMATOCRIT 30 % (40-54); HEMOGLOBIN 9.8 G/DL (13.3-17.7); LYMPHOCYTES # (AUTO) 3.3 X 10^3 (1.0-4.0); LYMPHOCYTES % (AUTO) 33 % (12-44); MEAN CORPUSCULAR HEMOGLOBIN 32 PG (25-34); MEAN CORPUSCULAR HGB CONC 32 G/DL (32-36); MEAN CORPUSCULAR VOLUME 97 FL (80-99); MEAN PLATELET VOLUME 11.2 FL (7.4-10.4); MONOCYTES # (AUTO) 1.9 X 10^3 (0.0-1.0); MONOCYTES % (AUTO) 19 % (0-12); NEUTROPHILS # (AUTO) 3.9 X 10^3 (1.8-7.8); NEUTROPHILS % (AUTO) 39 % (42-75); PLATELET COUNT 73 10^3/uL (130-400); RED CELL DISTRIBUTION WIDTH 15.5 % (10.0-14.5)
[2018-11-29 08:40] LABS: ALBUMIN 3.3 GM/DL (3.2-4.5); BILIRUBIN,DIRECT 0.4 MG/DL (0.0-0.3); BILIRUBIN,INDIRECT 0.3 MG/DL; BILIRUBIN,TOTAL 0.7 MG/DL (0.1-1.0); CALCIUM 8.5 MG/DL (8.5-10.1); CREATININE SERUM 4.86 MG/DL (0.60-1.30); MAGNESIUM 2.2 MG/DL (1.8-2.4); PHOSPHORUS 3.9 MG/DL (2.3-4.7); POTASSIUM 4.5 MMOL/L (3.6-5.0); TOTAL PROTEIN 6.8 GM/DL (6.4-8.2); URIC ACID 8.9 MG/DL (2.6-7.2)
[2018-11-29 08:59] LABS: EOSINOPHILS % (MANUAL) 2 %; LYMPHOCYTES % (MANUAL) 36 %; MONOCYTES % (MANUAL) 10 %; NEUTROPHILS % (MANUAL) 52 %; RBC MORPH NORMAL
[2018-11-29 11:59] LABS: BILIRUBIN,URINE NEGATIVE (NEGATIVE); CLARITY,URINE CLEAR; COLOR,URINE YELLOW; GLUCOSE, URINE (UA) NEGATIVE (NEGATIVE); KETONES,URINE NEGATIVE (NEGATIVE); LEUKOCYTE ESTERASE ,URINE NEGATIVE (NEGATIVE); NITRITE,URINE NEGATIVE (NEGATIVE); PH,URINE 6 (5-9); PROTEIN,URINE 2+ (NEGATIVE); UROBILINOGEN,URINE NORMAL (NORMAL)
[2018-11-29 12:36] LABS: BACTERIA,URINE NEGATIVE /HPF; WBC,URINE RARE /HPF
== END ==
LOC: LAB 07:49
PROVIDERS: ATTEND Internal Medicine Nephrology
DX: N18.4 Chronic kidney disease, stage 4 (severe) (principal)
CPT/HCPCS: 36415; 80069; 80076; 81000; 82550; 82570; 83735; 84156; 84550; 85007; 85027

== ENCOUNTER → 2018-12-06 | Outpatient (CLI) | payer MEDICAID ==
[~2018-12-06] VITALS: Ht 188 cm; Wt 78.6 kg
[~2018-12-06] MED LIST changes: +NS IV 1000 ML 1,000 ML IV NR; +NS IV 1000 ML 1,000 ML ONE
[2018-12-06 12:57] VITALS: BP 160/80
== END ==
LOC: SDC 11:50
PROVIDERS: ATTEND Internal Medicine
DX: E86.0 Dehydration (principal); N28.9 Disorder of kidney and ureter, unspecified
CPT/HCPCS: 96360; 96361

== ENCOUNTER → 2018-12-09 | Outpatient (CLI) | payer MEDICAID ==
[~2018-12-09] MED LIST changes: -NS IV 1000 ML 1,000 ML IV NR; -NS IV 1000 ML 1,000 ML ONE
[2018-12-09 10:42] LABS: ALBUMIN 3.2 GM/DL (3.2-4.5); CALCIUM 8.5 MG/DL (8.5-10.1); CREATININE SERUM 3.66 MG/DL (0.60-1.30); POTASSIUM 5.3 MMOL/L (3.6-5.0)
== END ==
LOC: LAB 10:08
PROVIDERS: ATTEND Internal Medicine Nephrology
DX: N18.4 Chronic kidney disease, stage 4 (severe) (principal); Z94.4 Liver transplant status
CPT/HCPCS: 36415; 80069; 82140

== ENCOUNTER → 2019-01-17 | Outpatient (CLI) | payer MEDICAID ==
[2019-01-17 09:48] LABS: BASOPHILS # (AUTO) 0.1 10^3/uL (0.0-0.1); BASOPHILS % (AUTO) 1 % (0-10); EOSINOPHILS # (AUTO) 0.9 10^3/uL (0.0-0.3); EOSINOPHILS % (AUTO) 11 % (0-10); HEMATOCRIT 33 % (40-54); HEMOGLOBIN 10.9 G/DL (13.3-17.7); LYMPHOCYTES # (AUTO) 2.5 X 10^3 (1.0-4.0); LYMPHOCYTES % (AUTO) 31 % (12-44); MEAN CORPUSCULAR HEMOGLOBIN 31 PG (25-34); MEAN CORPUSCULAR HGB CONC 34 G/DL (32-36); MEAN CORPUSCULAR VOLUME 94 FL (80-99); MEAN PLATELET VOLUME 11.4 FL (7.4-10.4); MONOCYTES # (AUTO) 1.2 X 10^3 (0.0-1.0); MONOCYTES % (AUTO) 15 % (0-12); NEUTROPHILS # (AUTO) 3.5 X 10^3 (1.8-7.8); NEUTROPHILS % (AUTO) 43 % (42-75); PLATELET COUNT 89 10^3/uL (130-400); RED CELL DISTRIBUTION WIDTH 14.9 % (10.0-14.5); WHITE BLOOD COUNT 8.2 10^3/uL (4.3-11.0)
[2019-01-17 10:07] LABS: ALBUMIN 3.4 GM/DL (3.2-4.5); CALCIUM 8.7 MG/DL (8.5-10.1); CREATININE SERUM 5.63 MG/DL (0.60-1.30); POTASSIUM 5.1 MMOL/L (3.6-5.0)
== END ==
LOC: LAB 09:14
PROVIDERS: ATTEND Internal Medicine Nephrology
DX: N17.0 Acute kidney failure with tubular necrosis (principal); D64.9 Anemia, unspecified; N25.81 Secondary hyperparathyroidism of renal origin; E87.6 Hypokalemia
CPT/HCPCS: 36415; 80069; 85025; 86038

== ENCOUNTER 2019-02-20 13:33 | Outpatient (RCR) | payer MEDICAID ==
[2019-02-20 13:56] LABS: BASOPHILS # (AUTO) 0.1 10^3/uL (0.0-0.1); BASOPHILS % (AUTO) 1 % (0-10); EOSINOPHILS # (AUTO) 0.8 10^3/uL (0.0-0.3); EOSINOPHILS % (AUTO) 11 % (0-10); HEMATOCRIT 30 % (40-54); HEMOGLOBIN 9.9 G/DL (13.3-17.7); LYMPHOCYTES # (AUTO) 2.1 X 10^3 (1.0-4.0); LYMPHOCYTES % (AUTO) 29 % (12-44); MEAN CORPUSCULAR HEMOGLOBIN 31 PG (25-34); MEAN CORPUSCULAR HGB CONC 33 G/DL (32-36); MEAN CORPUSCULAR VOLUME 93 FL (80-99); MEAN PLATELET VOLUME 11.5 FL (7.4-10.4); MONOCYTES # (AUTO) 0.9 X 10^3 (0.0-1.0); MONOCYTES % (AUTO) 13 % (0-12); NEUTROPHILS # (AUTO) 3.4 X 10^3 (1.8-7.8); NEUTROPHILS % (AUTO) 47 % (42-75); PLATELET COUNT 110 10^3/uL (130-400); RED CELL DISTRIBUTION WIDTH 14.5 % (10.0-14.5); WHITE BLOOD COUNT 7.3 10^3/uL (4.3-11.0)
[2019-02-20 14:15] LABS: BILIRUBIN,TOTAL 0.7 MG/DL (0.1-1.0); CALCIUM 8.1 MG/DL (8.5-10.1); CREATININE SERUM 3.82 MG/DL (0.60-1.30); POTASSIUM 4.9 MMOL/L (3.6-5.0); TOTAL PROTEIN 6.4 GM/DL (6.4-8.2)
== END 2019-05-21 | disposition home or self-care (01) ==
LOC: ONC 13:33
PROVIDERS: ATTEND Internal Medicine Hematology & Oncology
DX: D64.89 Other specified anemias (principal); K70.10 Alcoholic hepatitis without ascites; N18.5 Chronic kidney disease, stage 5; B18.2 Chronic viral hepatitis C; H91.93 Unspecified hearing loss, bilateral; Z79.899 Other long term (current) drug therapy; J43.9 Emphysema, unspecified; Z91.19 Patient's noncompliance with other medical treatment and regimen
CPT/HCPCS: 36415; 80053; 82728; 83540; 85025; 99214

== ENCOUNTER → 2019-04-03 | Outpatient (CLI) | payer MEDICAID ==
[2019-04-03 15:01] LABS: BASOPHILS # (AUTO) 0.1 10^3/uL (0.0-0.1); BASOPHILS % (AUTO) 1 % (0-10); EOSINOPHILS # (AUTO) 0.7 10^3/uL (0.0-0.3); EOSINOPHILS % (AUTO) 10 % (0-10); HEMATOCRIT 28 % (40-54); HEMOGLOBIN 9.4 G/DL (13.3-17.7); LYMPHOCYTES # (AUTO) 1.7 X 10^3 (1.0-4.0); LYMPHOCYTES % (AUTO) 24 % (12-44); MEAN CORPUSCULAR HEMOGLOBIN 31 PG (25-34); MEAN CORPUSCULAR HGB CONC 34 G/DL (32-36); MEAN CORPUSCULAR VOLUME 92 FL (80-99); MONOCYTES # (AUTO) 1.1 X 10^3 (0.0-1.0); MONOCYTES % (AUTO) 15 % (0-12); NEUTROPHILS # (AUTO) 3.6 X 10^3 (1.8-7.8); NEUTROPHILS % (AUTO) 50 % (42-75); PLATELET COUNT 93 10^3/uL (130-400); RED CELL DISTRIBUTION WIDTH 14.9 % (10.0-14.5); WHITE BLOOD COUNT 7.2 10^3/uL (4.3-11.0)
[2019-04-03 15:21] LABS: ALBUMIN 3.1 GM/DL (3.2-4.5); BILIRUBIN,DIRECT 0.4 MG/DL (0.0-0.3); BILIRUBIN,INDIRECT 0.3 MG/DL; BILIRUBIN,TOTAL 0.7 MG/DL (0.1-1.0); MAGNESIUM 1.7 MG/DL (1.6-2.4); TOTAL PROTEIN 6.4 GM/DL (6.4-8.2); URIC ACID 8.1 MG/DL (2.6-7.2)
[2019-04-04 09:09] LABS: ALBUMIN 3.1 GM/DL (3.2-4.5); CALCIUM 7.9 MG/DL (8.5-10.1); CREATININE SERUM 4.23 MG/DL (0.60-1.30); PHOSPHORUS 3.7 MG/DL (2.3-4.7); POTASSIUM 5.1 MMOL/L (3.6-5.0)
== END ==
LOC: LAB 14:36
PROVIDERS: ATTEND Internal Medicine Nephrology
DX: N17.9 Acute kidney failure, unspecified (principal); D64.9 Anemia, unspecified; I10 Essential (primary) hypertension; E87.6 Hypokalemia; N25.81 Secondary hyperparathyroidism of renal origin; R60.9 Edema, unspecified
CPT/HCPCS: 80069; 80076; 82550; 83735; 83970; 84550

== ENCOUNTER → 2019-04-16 | Outpatient (CLI) | payer MEDICAID ==
[2019-04-16 11:47] LABS: BASOPHILS # (AUTO) 0.1 10^3/uL (0.0-0.1); BASOPHILS % (AUTO) 1 % (0-10); EOSINOPHILS # (AUTO) 0.8 10^3/uL (0.0-0.3); EOSINOPHILS % (AUTO) 11 % (0-10); HEMATOCRIT 30 % (40-54); HEMOGLOBIN 9.9 G/DL (13.3-17.7); LYMPHOCYTES # (AUTO) 1.9 X 10^3 (1.0-4.0); LYMPHOCYTES % (AUTO) 26 % (12-44); MEAN CORPUSCULAR HEMOGLOBIN 31 PG (25-34); MEAN CORPUSCULAR HGB CONC 33 G/DL (32-36); MEAN CORPUSCULAR VOLUME 93 FL (80-99); MEAN PLATELET VOLUME 11.8 FL (7.4-10.4); MONOCYTES # (AUTO) 0.9 X 10^3 (0.0-1.0); MONOCYTES % (AUTO) 13 % (0-12); NEUTROPHILS # (AUTO) 3.6 X 10^3 (1.8-7.8); NEUTROPHILS % (AUTO) 50 % (42-75); PLATELET COUNT 98 10^3/uL (130-400); RED CELL DISTRIBUTION WIDTH 15.1 % (10.0-14.5); WHITE BLOOD COUNT 7.3 10^3/uL (4.3-11.0)
[2019-04-16 11:59] LABS: BILIRUBIN,URINE NEGATIVE (NEGATIVE); COLOR,URINE YELLOW; GLUCOSE, URINE (UA) NEGATIVE (NEGATIVE); KETONES,URINE NEGATIVE (NEGATIVE); LEUKOCYTE ESTERASE ,URINE NEGATIVE (NEGATIVE); NITRITE,URINE NEGATIVE (NEGATIVE); PH,URINE 5 (5-9); PROTEIN,URINE 2+ (NEGATIVE); UROBILINOGEN,URINE NORMAL (NORMAL)
[2019-04-16 12:14] LABS: ALBUMIN 2.9 GM/DL (3.2-4.5); BILIRUBIN,DIRECT 0.4 MG/DL (0.0-0.3); BILIRUBIN,INDIRECT 0.3 MG/DL; BILIRUBIN,TOTAL 0.7 MG/DL (0.1-1.0); CALCIUM 8.2 MG/DL (8.5-10.1); CREATININE SERUM 4.34 MG/DL (0.60-1.30); MAGNESIUM 1.6 MG/DL (1.6-2.4); PHOSPHORUS 2.3 MG/DL (2.3-4.7); POTASSIUM 4.9 MMOL/L (3.6-5.0); TOTAL PROTEIN 6.4 GM/DL (6.4-8.2); URIC ACID 8.6 MG/DL (2.6-7.2)
[2019-04-16 12:33] LABS: BACTERIA,URINE NEGATIVE /HPF; CLARITY,URINE CLEAR; RBC,URINE RARE /HPF
[2019-04-16 12:34] LABS: HYALINE CASTS, URINE RARE /LPF
== END ==
LOC: LAB 11:11
PROVIDERS: ATTEND Internal Medicine Nephrology
DX: N17.9 Acute kidney failure, unspecified (principal); I12.9 Hypertensive chronic kidney disease with stage 1 through stage 4 chronic kidney disease, or unspecified chronic kidney disease; N18.9 Chronic kidney disease, unspecified; D63.1 Anemia in chronic kidney disease; E87.6 Hypokalemia; N25.81 Secondary hyperparathyroidism of renal origin
CPT/HCPCS: 36415; 80069; 80076; 81000; 82550; 82570; 83735; 83970; 84156; 84550; 85025

== ENCOUNTER 2019-08-30 04:29 | Emergency (ER) | payer MEDICAID ==
[~2019-08-30] VITALS: Ht 188 cm; Wt 78.9 kg
[~2019-08-30 04:29] MED LIST changes: +RT-ALBUTEROL SULF 2.5 MG/3 ML PRE-MIX VIAL ONE; +RT-ALBUTEROL/IPRATROPIUM 3 ML (DUONEB) VIAL ONE
[2019-08-30] MEDS ORDERED: RT-ALBUTEROL SULF 2.5 MG/3 ML PRE-MIX VIAL INH STA ×2 (04:36→08:10)
[2019-08-30] MEDS ORDERED: methylPREDNISolone 125 MG (Solu-MEDROL) VIAL IV STA (04:36)
[2019-08-30] MEDS ORDERED: NS IV 1000 ML 1,000 ML IV SCH (04:36)
[2019-08-30] MEDS ORDERED: NS IV 1000 ML 1,000 ML IV ONE (04:36)
[2019-08-30] MEDS ORDERED: NS IV 500 ML 500 ML IV ONE (04:44)
--- NOTE | 2019-08-30 04:44 | ED Respiratory ---
General Chief Complaint: Respiratory Problems Stated Complaint: SOA Nursing Triage Note: BROUGHT IN BY [facility] C/O INCREASED SOA. Source: patient, EMS Exam Limitations: no limitations (HELGA DUARTE) History of Present Illness Date Seen by Provider: Aug 30, 2019 Time Seen by Provider: 04:34 Initial Comments Patient arrives the ER by EMS from home with chief complaint of shortness of breath. He has a poor historian. He is accompanied by his . He has a history of COPD and hemodialysis which he did attend Sunday, yesterday. There is a fistula on his left arm and a double-lumen dialysis catheter in his right subclavian. EMS reports he was agitated and after we made an attempt at an IV he refused any further. He refuses to wear CPAP mask or nasal cannula. He continually said he is very short of breath. They gave him 2 DuoNeb's with only minimal relief. Patient denied any pain. (HELGA DUARTE) Initial Comments reports earlier this week that he was playing poker with his friends and he was smoking quite a bit that night as well as the other players. He has intermittently quit smoking and restarted smoking and that continues. He had dialysis yesterday and afterwards did not feel well so did not take his meds until about 4 PM. She was concerned about his ammonia level. Timing/Duration: this morning Severity: moderate, severe Prior Episodes/Possible Cause: occasional episodes (FRANCISCO MARES MD) Allergies and Home Medications Allergies Coded Allergies: Heparin Analogues (Verified Allergy, Mild, 07/22/15) codeine (Verified Allergy, Unknown, TAKES OXYCODONE AT HOME, 07/22/15) fentanyl (Verified Allergy, Unknown, 07/22/15) sumatriptan (Verified Allergy, Unknown, 07/22/15) zolpidem (Verified Allergy, Unknown, 07/22/15) Uncoded Allergies: NSADS (Allergy, Unknown, 04/10/14) CONTRAST DYE/RADIOLOGY DYE (Adverse Reaction, Unknown, 04/10/14) DUE TO KIDNEY FUNCTION Home Medications Budesonide/Formoterol Fumarate 10.2 Gm Hfa.aer.ad, 2 PUFF IH BID PRN for SHORTNESS OF BREATH, (Reported) Cholecalciferol (Vitamin D3) 2,000 Unit Capsule, 2,000 UNIT PO BID, (Reported) Diazepam 10 Mg Tablet, 10 MG PO HS PRN for ANXIETY, (Reported) Lactulose 10 Gm/15 Ml Solution, 45 ML PO QID PRN for HIGH AMMONIA LEVELS, (Reported) LAST FILLED #6111 ML 10-17-16 Magnesium Oxide 500 Mg Tablet, 500 MG PO BID, (Reported) Methylphenidate HCl 10 Mg Tablet, 10 MG PO DAILY, (Reported) Methylphenidate HCl 10 Mg Tablet, 10 MG PO TID PRN for ENERGY, (Reported) Nadolol 40 Mg Tablet, 40 MG PO HS, (Reported) Oxycodone HCl 80 Mg Tab.er.12h, 80 MG PO TID PRN for PAIN-SEVERE, (Reported) Oxycodone HCl 30 Mg Tablet, 30 MG PO Q4H PRN for PAIN-BREAKTHROUGH, (Reported) Potassium Chloride 10 Meq Tablet.er, 10 MEQ PO BID, (Reported) LAST FILLED #60 02-13-17 Rifaximin 550 Mg Tablet, 550 MG PO BID, (Reported) LAST FILLED #60 02-13-17 Sennosides/Docusate Sodium 1 Each Tablet, 2 TAB PO BID, (Reported) Tacrolimus 0.5 Mg Capsule, 0.5 MG PO BID, (Reported) LAST FILLED #90 02-13-17 Patient Home Medication List Home Medication List Reviewed: Yes (HELGA DUARTE) Review of Systems Review of Systems Constitutional: No chills, No diaphoresis EENTM: No ear discharge, No ear pain Respiratory: No cough; dyspnea on exertion, short of breath, wheezing Cardiovascular: No chest pain, No edema Gastrointestinal: No abdominal pain, No constipation, No diarrhea Genitourinary: No discharge, No dysuria Musculoskeletal: No back pain, No joint pain Skin: No pruritus, No rash Psychiatric/Neurological: Denies Headache, Denies Numbness (HELGA DUARTE) Past [id number]-Etfcus-Ufkpwp Hx Patient Social History Alcohol Use: Denies Use Recreational Drug Use: No Smoking Status: Current Everyday Smoker Type Used: Cigarettes 2nd Hand Smoke Exposure: Yes Recent Foreign Travel: No Contact w/Someone Who Travel: No Recent Infectious Disease Expo: No Recent Hopitalizations: No Physical Abuse: No Sexual Abuse: No Mistreated: No Fear: No (HELGA DUARTE) Immunizations Up To Date Tetanus Booster (TDap): Less than 5yrs PED Vaccines UTD: No Date of Pneumonia Vaccine: May 09, 2015 Date of Influenza Vaccine: Jul 22, 2015 (HELGA DUARTE) Seasonal Allergies Seasonal Allergies: No (HELGA DUARTE) Past Medical History Surgeries: Yes (LIVER TRANSPLANT 2004. BROKEN LEFT ARM 2011. PORT PLACEMENT. LIVER SHUNT) Liver Transplant Respiratory: Yes Asthma, COPD, Emphysema Currently Using CPAP: No Currently Using BIPAP: No Cardiac: Yes (AORTIC ANEURYSM ) Aneurysm, Hypertension Neurological: No Reproductive Disorders: No Sexually Transmitted Disease: No HIV/AIDS: No Genitourinary: Yes Renal Failure Gastrointestinal: Yes (chronic abdominal pain) Liver Disease/Jaundice, Hepatitis, Gall Bladder Disease Musculoskeletal: Yes ( right dislocated shoulder, broken arm age 13 & 3 years ago , siatica nerve) Arthritis, Fractures Endocrine: No HEENT: No Loss of Vision: Denies Hearing Impairment: Hard of Hearing Cancer: Yes Liver Psychosocial: Yes Anxiety, Depression Integumentary: Yes Recent Skin Changes Blood Disorders: No Adverse Reaction/Blood Tranf: No (HELGA DAURTE) Family Medical History Not obtainable due to adoption Physical Exam Vital Signs - First Documented 08/30/19 08/30/19 04:31 04:39 Temp 36.0 Pulse 65 Resp 18 B/P (MAP) 187/98 (127) Pulse Ox 99 O2 Delivery Vapotherm O2 Flow Rate 40.00 FiO2 45 (FRANCISCO MARES MD) Capillary Refill : Less Than 3 Seconds (HELGA DUARTE) Height: 6'2.00" Weight: 173lbs. 3.0oz. 78.689014au; 22.00 BMI Method:Stated General Appearance: moderate distress, cachetic Eyes: Bilateral Eye Normal Inspection, Bilateral Eye PERRL, Bilateral Eye EOMI HEENT: PERRL/EOMI, normal ENT inspection, pharynx normal Neck: full range of motion, supple, normal inspection Respiratory: respiratory distress ([id number]), accessory muscle use (tripoding, purse lip breathing), wheezing, expiration (prolonged) Cardiovascular: normal peripheral pulses, regular rate, rhythm, no edema, no murmur Gastrointestinal: normal bowel sounds, non tender, soft Extremities: normal range of motion, non-tender, normal inspection, normal capillary refill Neurologic/Psychiatric: alert, normal mood/affect, oriented x 3 (but not situation.) Skin: normal color, warm/dry (HELGA DUARTE) Progress/Results/Core Measures Suspected Sepsis Recent Fever Within 48 Hours: No Infection Criteria Present: None New/Unexplained Altered Menta: No Sepsis Screen: No Definite Risk SIRS Temperature: Pulse: 65 Respiratory Rate: 18 Laboratory Tests 08/30/19 04:50: White Blood Count 11.4H Blood Pressure 187 /98 Mean: 127 Laboratory Tests 08/30/19 04:50: Creatinine 4.94H, Platelet Count 90L, Total Bilirubin 1.2H (HELGA DUARTE) Results/Orders Lab Results Laboratory Tests Test 08/30/19 04:50 08/30/19 05:53 Range/Units White Blood Count 11.4 H 4.3-11.0 10^3/uL Red Blood Count 3.99 L 4.35-5.85 10^6/uL Hemoglobin 12.3 L 13.3-17.7 G/DL Hematocrit 38 L 40-54 % Mean Corpuscular Volume 95 80-99 FL Mean Corpuscular Hemoglobin 31 25-34 PG Mean Corpuscular Hemoglobin Concent 33 32-36 G/DL Red Cell Distribution Width 16.1 H 10.0-14.5 % Platelet Count 90 L 130-400 10^3/uL Mean Platelet Volume 10.7 H 7.4-10.4 FL Neutrophils (%) (Auto) 60 42-75 % Lymphocytes (%) (Auto) 18 12-44 % Monocytes (%) (Auto) 16 H 0-12 % Eosinophils (%) (Auto) 6 0-10 % Basophils (%) (Auto) 1 0-10 % Neutrophils # (Auto) 6.9 1.8-7.8 X 10^3 Lymphocytes # (Auto) 2.0 1.0-4.0 X 10^3 Monocytes # (Auto) 1.8 H 0.0-1.0 X 10^3 Eosinophils # (Auto) 0.7 H 0.0-0.3 10^3/uL Basophils # (Auto) 0.1 0.0-0.1 10^3/uL Blood Gas Puncture Site RIGHT RADIAL Blood Gas Patient Temperature 36.0 Arterial Blood pH 7.41 7.37-7.43 Arterial Blood Partial Pressure CO2 46 H 35-45 MMHG Arterial Blood Partial Pressure O2 89 79-93 MMHG Arterial Blood HCO3 29 H 23-27 MMOL/L Arterial Blood Total CO2 30.4 21.0-31.0 MMOL/L Arterial Blood Oxygen Saturation 97 94-100 % Arterial Blood Base Excess 4.3 H -2.5-2.5 MMOL/L Rigo Test YES-POS Blood Gas Ventilator Setting NO Blood Gas Inspired Oxygen 45% Sodium Level 141 135-145 MMOL/L Potassium Level 4.4 3.6-5.0 MMOL/L Chloride Level 104 98-107 MMOL/L Carbon Dioxide Level 26 21-32 MMOL/L Anion Gap 11 5-14 MMOL/L Blood Urea Nitrogen 18 7-18 MG/DL Creatinine 4.94 H 0.60-1.30 MG/DL Estimat Glomerular Filtration Rate 12 BUN/Creatinine Ratio 4 Glucose Level 102 70-105 MG/DL Calcium Level 8.4 L 8.5-10.1 MG/DL Corrected Calcium 9.2 8.5-10.1 MG/DL Magnesium Level 1.9 1.6-2.4 MG/DL Total Bilirubin 1.2 H 0.1-1.0 MG/DL Aspartate Amino Transf (AST/SGOT) 27 5-34 U/L Alanine Aminotransferase (ALT/SGPT) 15 0-55 U/L Alkaline Phosphatase 209 H 40-136 U/L Troponin I < 0.028 <0.028 NG/ML C-Reactive Protein High Sensitivity 1.96 H 0.00-0.50 MG/DL Total Protein 6.3 L 6.4-8.2 GM/DL Albumin 3.0 L 3.2-4.5 GM/DL Ammonia 43 H 11-32 UMOL/L (FRANCISCO MARES MD) Micro Results Microbiology 08/30/19 Influenza Types A,B Antigen (PAGE) - Final, Complete (FRANCISCO MARES MD) My Orders Orders - FRANCISCO MARES MD Hydralazine Injection (Apresoline Inject (08/30/19 06:45) Hydralazine Injection (Apresoline Inject (08/30/19 06:27) Lorazepam Injection (Ativan Injection) (08/30/19 07:15) Albuterol Pre-Mix Nebs (Rt) (Proventil (08/30/19 08:10) Svn Small Volume Nebulizer (08/30/19 08:10) (FRANCISCO MARES MD) Medications Given in ED Current Medications Medications Dose Ordered Sig/Lindsay Route Start Time Stop Time Status Last Admin Dose Admin Albuterol/ Ipratropium 3 ml ONCE ONCE INH 08/30/19 04:45 08/30/19 04:46 DC 08/30/19 04:54 3 ML Hydralazine HCl 20 mg ONCE ONCE IV 08/30/19 06:45 08/30/19 06:46 DC 08/30/19 06:34 20 MG Lorazepam 0.5 mg ONCE ONCE IVP 08/30/19 07:15 08/30/19 07:16 DC 08/30/19 07:25 0.5 MG Sodium Chloride 500 ml @ 0 mls/hr Q0M ONCE IV 08/30/19 04:44 08/30/19 04:45 DC 08/30/19 04:54 0 MLS/HR (FRANCISCO MARES MD) Vital Signs/I&O 08/30/19 08/30/19 08/30/19 08/30/19 04:31 04:39 08:36 09:05 Temp 36.0 Pulse 65 Resp 18 B/P (MAP) 187/98 (127) Pulse Ox 99 99 100 O2 Delivery Vapotherm Vapotherm Vapotherm Vapotherm O2 Flow Rate 40.00 30.00 30.00 30.00 FiO2 45 45 45 08/30/19 09:15 Pulse Ox 93 O2 Delivery Room Air (FRANCISCO MARES MD) Vital Signs/I&O Capillary Refill : Less Than 3 Seconds (HELGA DUARTE) Blood Pressure Mean: 127 Progress Note : Time: 04:55 Progress Note ABG, Vapotherm as he was not tolerating the mask and we'll establish an IV and consider a little Ativan for his agitation. No fever or history of fever. Cough is nonproductive. Lots of wheezing sounds so we'll give him an hour-long DuoNeb and 12.5 mg of albuterol. Chest x-ray and a CRP to help differentiate inflammatory infectious versus COPD exacerbation. 500 cc normal saline as he appears dry. (HELGA DUARTE) Progress Note : Progress Note Assumed care of the patient from Dr. Duarte at 0600 pending influenza screen. Monitor patient. 0640: I have reevaluated the patient. He still is wheezing but was doing better. We trialed him off of Vapotherm and he did not do well and became quite dyspneic. Blood pressure is noted to be 180s to 190s over 90s to 100s. Hydralazine 20 mg IV given. We will reevaluate after blood pressure has improved. At this point, we will still consider transfer if he needs adjunct device for breathing. He is not normally on oxygen at home. 0830: Patient did receive Ativan for anxiety and he was given his home dose of pain medicine. Monitor patient. 924: Patient received albuterol nebulizer treatment and has been taken off Vapotherm. He is tolerating well now and back to his more normal baseline. He has nebulizer at home. I believe the exacerbation was related to missing med dose yesterday and catching up after dialysis. He is much more comfortable now and tolerating off oxygen with O2 sat 93% loss sleeping. I did discuss this with the patient and family. is comfortable with taking him home with the understanding that if he worsens he'll need to come back. She has asked for Rx for albuterol nebulizer fluids which I will write for and we will continue prednisone for the next 5 days. Discharged home with return precautions. Patient and family verbalize understanding of instructions and agreement with plan. (FRANCISCO MARES MD) ECG Initial ECG Impression Date: Aug 30, 2019 Initial ECG Impression Time: 04:56 Initial ECG Rate: 61 Initial ECG Rhythm: Normal Sinus Initial ECG Intervals: Normal Initial ECG Impression: Normal Comment Sinus rhythm without ST elevation or depression (HELGA DUARTE) Diagnostic Imaging Diagonstic Imaging: Xray Plain Films/CT/US/NM/MRI: chest (1v) Comments No acute cardiopulmonary process noted. No evidence of pneumothorax. There is a double-lumen dialysis catheter noted on the right side of the chest overlying the shadow of the superior vena cava. Reviewed: Reviewed by Me (HELGA DUARTE) Comments [facility] [place], [place] NAME: MONICA LORD MED REC#: [id number] PT STATUS: REG ER : 1955 PHYSICIAN: HELGA DUARTE MD ADMIT DATE: 08/30/19/ER Draft Date of Exam:08/30/19 CHEST 1 VIEW, AP/PA ONLY INDICATION: Respiratory distress. Compared 10/24/2018 FINDINGS: No focal consolidation at today's exam. Right IJ sheath at the SVC. The heart size within the upper limits of normal. No gross overdistention of vascularity. No effusion or pneumothorax. IMPRESSION: No acute appearing abnormality. Dictated on workstation # [id number] Dict: 08/30/19 0654 Trans: 08/30/19 0742 [facility] [id number] Interpreted by: FIORDALIZA TONEY Electronically signed by: (FRANCISCO MARES MD) Departure Impression Primary Impression: Acute bronchitis Qualified Codes: J20.9 - Acute bronchitis, unspecified Additional Impressions: Hypertension Qualified Codes: I10 - Essential (primary) hypertension End stage renal disease on dialysis Disposition: HOME, SELF-CARE Condition: Stable Departure-Patient Inst. Decision time for Depature: 09:30 (FRANCISCO MARES MD) Referrals: TEREZA JAVIER MD (PCP/Family) Primary Care Physician Patient Instructions: Acute Bronchitis, Adult (DC), End Stage Kidney Disease (DC), High Blood Pressure (DC) Add. Discharge Instructions: All discharge instructions reviewed with patient and/or family. Voiced understanding. Continue home meds as previously prescribed. Follow-up with your Dr. in a few days for recheck. Continue dialysis. Return for worsening, fever, vomiting, weakness, breathing problems or other concerns as needed. Take other medications as directed. Scripts Prednisone (Prednisone) 20 Mg Tab 40 MG PO DAILY, #10 TAB 0 Refills Prov: FRANCISCO MARES MD 08/30/19 Albuterol Sulfate (Albuterol Sulfate) 2.5 Mg/3 Ml Vial.neb 2.5 MG INH Q4H PRN for WHEEZING, #50 EA 1 Refill Prov: FRANCISCO MARES MD 08/30/19 HELGA DUARTE Aug 30, 2019 04:43 FRANCISCO MARES MD Aug 30, 2019 06:50
[2019-08-30] MEDS ORDERED: RT-ALBUTEROL/IPRATROPIUM 3 ML (DUONEB) VIAL INH ONE (04:45)
[2019-08-30 04:59] LABS: ABG BASE EXCESS 4.3 MMOL/L (-2.5-2.5); ABG OXYGEN SATURATION 97 % (94-100); ABG PCO2 46 MMHG (35-45); ABG PH 7.41 (7.37-7.43); ABG PO2 89 MMHG (79-93); ABG TCO2 30.4 MMOL/L (21.0-31.0); BASOPHILS # (AUTO) 0.1 10^3/uL (0.0-0.1); BASOPHILS % (AUTO) 1 % (0-10); EOSINOPHILS # (AUTO) 0.7 10^3/uL (0.0-0.3); EOSINOPHILS % (AUTO) 6 % (0-10); HEMATOCRIT 38 % (40-54); HEMOGLOBIN 12.3 G/DL (13.3-17.7); LYMPHOCYTES % (AUTO) 18 % (12-44); MEAN CORPUSCULAR HEMOGLOBIN 31 PG (25-34); MEAN CORPUSCULAR HGB CONC 33 G/DL (32-36); MEAN CORPUSCULAR VOLUME 95 FL (80-99); MEAN PLATELET VOLUME 10.7 FL (7.4-10.4); MONOCYTES # (AUTO) 1.8 X 10^3 (0.0-1.0); MONOCYTES % (AUTO) 16 % (0-12); NEUTROPHILS # (AUTO) 6.9 X 10^3 (1.8-7.8); NEUTROPHILS % (AUTO) 60 % (42-75); PLATELET COUNT 90 10^3/uL (130-400); RED CELL DISTRIBUTION WIDTH 16.1 % (10.0-14.5); WHITE BLOOD COUNT 11.4 10^3/uL (4.3-11.0)
[2019-08-30 05:00] LABS: ALLENS TEST YES-POS; INSPIRED O2 45%; VENTILATOR NO
[2019-08-30 05:18] LABS: ALANINE AMINOTRANSFERASE 15 U/L (0-55); ALKALINE PHOSPHATASE 209 U/L (40-136); BILIRUBIN,TOTAL 1.2 MG/DL (0.1-1.0); BUN/CREATININE RATIO 4; CALCIUM 8.4 MG/DL (8.5-10.1); CARBON DIOXIDE 26 MMOL/L (21-32); CHLORIDE 104 MMOL/L (98-107); CREATININE SERUM 4.94 MG/DL (0.60-1.30); GFR ESTIMATED 12; GLUCOSE 102 MG/DL (70-105); MAGNESIUM 1.9 MG/DL (1.6-2.4); POTASSIUM 4.4 MMOL/L (3.6-5.0); SODIUM 141 MMOL/L (135-145); TOTAL PROTEIN 6.3 GM/DL (6.4-8.2)
[2019-08-30] MEDS ORDERED: hydrALAZINE (APESOLINE) 20 MG/ML VIAL ONE (06:27)
--- NOTE | 2019-08-30 06:33 | NUR ---
vapotherm back on per erp.
[2019-08-30] MEDS ORDERED: hydrALAZINE (APESOLINE) 20 MG/ML VIAL IV ONE (06:45)
[2019-08-30] MEDS ORDERED: LORazepam INJ 2 MG/ML (ATIVAN) VIAL IVP ONE (07:15)
--- NOTE | 2019-08-30 07:43 | Diagnostic Imaging Report ---
INDICATION: Respiratory distress. Compared 10/24/2018 FINDINGS: No focal consolidation at today's exam. Right IJ sheath at the SVC. The heart size within the upper limits of normal. No gross overdistention of vascularity. No effusion or pneumothorax. IMPRESSION: No acute appearing abnormality. Dictated by: Dictated on workstation # [id number]
[2019-08-30] MEDS ORDERED: PRD20T PO (09:31)
[2019-08-30] MEDS ORDERED: ALBU2.5V4 INH (09:31)
[2019-08-30 09:54] VITALS: BP 158/82
== END 2019-08-30 10:06 | disposition home or self-care (01) ==
LOC: EDUNIT# 04:29 → ER 04:30
DX: J20.9 Acute bronchitis, unspecified (principal); I12.9 Hypertensive chronic kidney disease with stage 1 through stage 4 chronic kidney disease, or unspecified chronic kidney disease; N18.6 End stage renal disease; J43.9 Emphysema, unspecified; F41.9 Anxiety disorder, unspecified; F32.9 Major depressive disorder, single episode, unspecified; F17.210 Nicotine dependence, cigarettes, uncomplicated; Z94.4 Liver transplant status; Z85.05 Personal history of malignant neoplasm of liver; Z99.2 Dependence on renal dialysis; Z88.5 Allergy status to narcotic agent; Z88.8 Allergy status to other drugs, medicaments and biological substances; Z88.6 Allergy status to analgesic agent; Z91.041 Radiographic dye allergy status
CPT/HCPCS: 36415; 71045; 80053; 82140; 82805; 83735; 84484; 85025; 86141; 87804; 93005; 94640

== ENCOUNTER 2019-10-12 09:29 | Emergency (ER) | payer MEDICAID ==
[~2019-10-12] VITALS: Ht 182 cm; Wt 77.0 kg
[~2019-10-12 09:29] MED LIST changes: +ALBU2.5V4 INH; -RT-ALBUTEROL SULF 2.5 MG/3 ML PRE-MIX VIAL ONE; -RT-ALBUTEROL/IPRATROPIUM 3 ML (DUONEB) VIAL ONE
--- NOTE | 2019-10-12 09:30 | NUR ---
C-COLLAR PLACE ON PT CO OF NECK PAIN. 0934 PT C-COLLAR REMOVED PT REFUSING. DENIES NECK PAIN. DR ESCALERA EXPLAINED TO PT RISKS REMOVING C-COLLAR. PT CONT TO REFUSE C-COLLAR
--- OUTSIDE RECORDS SUMMARY | 2019-10-12 09:36 | XMS REPORT | Encounter Summary ---
Author Author [facility] Organization [facility] Address Unknown Phone Unavailable Care Team Providers Care Sausage Grinder Name Role Phone Max Anne MD PCP Unavailable Shaun Cetneno MD Unavailable Blaze Lopes [phone] Unavailable Eric Chance MD Unavailable Encounter Details Care Team Description Date Type Department Vic Clayton MD [address] [facility] [place] [address] [id number] 07/10/2019 Documentation [facility] [address] [address] Social History Date Tobacco Use Types Packs/Day Years Used Current Every Day Smoker Cigarettes 1 20 Smokeless Tobacco: Never Used Drinks/Week oz/Week Comments Alcohol Use No Sex Assigned at Date Recorded Not on file Industry Job Start Date Occupation Not on file Not on file Not on file Travel End Travel History Travel Start No recent travel history available. documented as of this encounter Functional Status Date of Assessment Functional Status Response 12/23/2018 Does the patient have a hearing impairment: Yes 12/23/2018 Does the patient have a visual impairment: Yes 12/23/2018 Does the patient have impaired ambulation: No 12/23/2018 Does the patient have an activity of daily living No (ADL) impairment: Date of Assessment Cognitive Status Response 12/23/2018 Does the patient have a cognitive impairment: No documented as of this encounter Progress Notes * Blaze Lopes - 07/10/2019 9:28 AM NEWSPAPER DELIVERY COUNSELOR Faxed request to Dr. Miller at fax# [phone], requesting patient last office visit note, last labs, last abdominal imaging and EGD/Colonoscopy if any complet ed.Blaze Lopes PAPER DELIVERY COUNSELOR documented in this encounter Plan of Treatment Not on filedocumented as of this encounter Visit Diagnoses Not on filedocumented in this encounter
--- OUTSIDE RECORDS SUMMARY | 2019-10-12 09:36 | XMS REPORT | Clinical Summary ---
Author Author [facility] Organization [facility] Address Unknown Phone Unavailable Care Team Providers Care Hvac Sheet Metal Installer Helper Name Role Phone Max Anne MD PCP Unavailable Shaun Centeno MD Unavailable Blaze Lopes [phone] Unavailable Eric Chance MD Unavailable Source Comments Some departments are not documenting in the electronic medical record. If you d o not see the information that you expected, contact Release of Information in [facility] bead Button Information Management department at [phone] for further assistan ce in locating additional records.[facility] Allergies Comments Active Allergy Reactions Severity [...] Powd by mouth Four Times Daily. Active oxycodone 5 mg capsule Take 1 Cap by 30 Cap 0 0 10/29/ mouth Every 4 0 Hours as needed. 1-2 tablets as needed for pain Active lactulose 10 gram/15 mL Take 15 mL by 473 mL 3 oral solution mouth three 9 times daily. 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 Last Filed Vital Signs Reading Time Taken Comments Vital Sign 198/88 12/23/2018 9:45 AM CDT Blood Pressure 47 12/23/2018 9:45 AM CDT Pulse 36.4 C (97.5 F) 12/23/2018 8:11 AM CDT Temperature 16 12/23/2018 8:11 AM CDT Respiratory Rate 100% 12/23/2018 8:11 AM CDT Oxygen Saturation - - Inhaled Oxygen Concentration 76.2 kg (168 lb) 12/23/2018 9:45 AM CDT Weight 182.9 cm (6') 12/23/2018 9:45 AM CDT Height 22.78 12/23/2018 9:45 AM CDT Body Mass Index Plan of Treatment Health Maintenance Due Date Last Done Comments DTAP/TDAP VACCINES (1 - 10/10/1967 Tdap) HIV SCREENING 10/10/1971 PHYSICAL (COMPREHENSIVE) 1974 EXAM COLORECTAL CANCER 2006 SCREENING SHINGLES RECOMBINANT 2006 VACCINE (1 of 2) INFLUENZA VACCINE 02/07/2020 Results Not on filefrom Last 3 Months Insurance Type Payer Benefit Subscriber ID Effective Phone Address Plan / Dates Group AETNA MEDICAID AETNA xxxxxxxxxxx [id number] [place] Advance Directives Patient Garnett Room Worker Explanation Type Date Recorded Advance Directive/DPOA
--- OUTSIDE RECORDS SUMMARY | 2019-10-12 09:38 | XMS REPORT | Encounter Summary ---
Author Author [facility] Organization [facility] Address Unknown Phone Unavailable Care Team Providers Care Geothermal Production Manager Name Role Phone PCP Unavailable Encounter Details Care Team Description Date Type Department 12/17/2003 [facility] al Encounter [address] [place] [address] Social History Date Tobacco Use Types Packs/Day Years Used Never Assessed Sex Assigned at Date Recorded Not on file Industry Job Start Date Occupation Not on file Not on file Not on file Travel End Travel History Travel Start No recent travel history available. documented as of this encounter Plan of Treatment Not on filedocumented as of this encounter Procedures Comments Procedure Name Priority Date/Time Associated Diag nosis HEPARIN INDUCED PLATELET Routine 12/17/2003 ANTIBODY 3:00 AM CDT documented in this encounter Results * Heparin Induced Platelet Antibody (12/17/2003 3:00 AM CDT) Heparin POSITIVE (A) SUNQUEST Antibody Specimen Blood Performing Organization Address City/State/[facility] Ph one Number [facility] [address] [place], [place] [address] SUNQUEST documented in this encounter Visit Diagnoses Not on filedocumented in this encounter
--- OUTSIDE RECORDS SUMMARY | 2019-10-12 09:38 | XMS REPORT | Clinical Summary ---
Author Author [facility] Organization [facility] Address Unknown Phone Unavailable Care Team Providers Care Carboy Filler Name Role Phone PCP Unavailable Allergies Not on File Medications Not on file Active Problems Not on file Social History Date Tobacco Use Types Packs/Day Years Used Never Assessed Sex Assigned at Date Recorded Not on file Industry Job Start Date Occupation Not on file Not on file Not on file Travel End Travel History Travel Start No recent travel history available. Last Filed Vital Signs Not on file Plan of Treatment Not on file Results Not on filefrom Last 3 Months
--- OUTSIDE RECORDS SUMMARY | 2019-10-12 09:39 | XMS REPORT ---
Author Author Harshal JAVIER Organization [facility] Address [address] [place] [address] Care Team Providers Care Car Servicer Name Role Phone TEREZA JAVIER Unavailable PROBLEMS Type Condition ICD9-CM Code RXH98-GY Code Onset Dates Condition S tatus SNOMED Code Problem Reactive depression F32.9 Active 83266357 Problem Essential hypertension I10 Active 84010596 Problem Chronic obstructive pulmonary disease, unspecified COPD ty pe J44.9 Active 51322879 Problem Chronic atrial fibrillation I48.2 Ac tive 380725653 Problem History of liver transplant Z94.4 Ac tive 981325708 Problem Chronic depression F32.9 Active 1 88233596 Problem Sciatica of left side M54.32 Active 91132228 Problem Other chronic pain G89.29 Active 8 9442971 Problem Kidney failure N19 Active 74006 005 Problem Chronic renal failure, stage 4 (severe) N18.4 Active 97909037 Problem Chronic hepatitis C without hepatic coma B18.2 Active [id number] ALLERGIES No Information ENCOUNTERS Encounter Location Date Diagnosis [place] [address] [address] Sep, Other chronic pain G89.29 [facility] [address] [address] 11 Aug, 2019 Chronic depression F32.9 [facility] [address] [address] 10 Aug, 2019 Other chronic pain G89.29 [facility] [address] [address] Aug, Other chronic pain G89.29 and Chronic de pression F32.9 [facility] [address] [address] 04 Aug, 2019 Cellulitis of left upper extremity L03.1 14 and Other chronic pain G89.29 [facility] [address] [facility] [id number] [place] [address] 14 Jul, 2019 Wheezes R06.2 and Bronchitis J40 [facility] [address] [facility] [place] [address] 13 Jul, 2019 [facility] [address] [address] 10 Jul, 2019 History of liver transplant Z94.4 [place] [address] [address] 09 Jul, 2019 Chronic depression F32.9 and History of liver transplant Z94.4 [place] [address] [place] [id number] [place] [address] 07 Jul, 2019 Chronic depression F32.9 and History of liver transplant Z94.4 [place] [address] [place] [id number] [place] [address] Jul, [facility] [address] [place] [id number] [place] [address] Jul, [place] [address] [address] Jun, Other chronic pain G89.29 and Sciatica o f left side M54.32 [place] [address] [place] [id number] [place] [address] Jun, History of liver transplant Z94.4 [facility] [address] [place] [id number] [place] [address] 16 Jun, 2019 [place] [address] [address] Jun, History of liver transplant Z94.4 [facility] [address] [place] [id number] [place] [address] 11 Jun, 2019 History of liver transplant Z94.4 and Ch ronic depression F32.9 [facility] [place] [address] [place] [address] Jun, [facility] [address] [facility] [place] [address] May, Chronic depression F32.9 [facility] [address] [facility] [place] [address] May, History of liver transplant Z94.4 [facility] [address] [facility] [place] [address] May, History of liver transplant Z94.4 [facility] [address] [facility] [place] [address] May, [facility] [address] [place] [id number] [place] [address] Apr, [facility] [address] [facility] [place] [address] Apr, [facility] [address] [place] [id number] [place] [address] Apr, [facility] [address] [place] [id number] [place] [address] Apr, Bronchitis J40 [facility] [address] [place] [id number] [place] [address] Apr, Chronic depression F32.9 [facility] [address] [facility] [place] [address] Apr, History of liver transplant Z94.4 [facility] [address] [facility] [place] [address] Apr, History of liver transplant Z94.4 [facility] [address] [facility] [place] [address] Mar, Chronic depression F32.9 [facility] [address] [facility] [place] [address] Mar, [facility] [address] [facility] [place] [address] Mar, History of liver transplant Z94.4 [facility] [address] [place] [id number] [place] [address] Mar, [facility] [address] [address] Mar, History of liver transplant Z94.4 [facility] [address] [address] Feb, Sciatica of left side M54.32 and History of liver transplant Z94.4 [facility] [address] [address] Feb, History of liver transplant Z94.4 [facility] [address] [address] Feb, History of liver transplant Z94.4 [facility] [address] [address] Feb, [facility] [address] [address] Jan, Anemia due to other cause, not classifie d D64.89 [facility] [address] [address] Jan, History of liver transplant Z94.4 [facility] [address] [address] Jan, Sciatica of left side M54.32 [facility] [address] [address] Jan, History of liver transplant Z94.4 [facility] [address] [address] Jan, History of liver transplant Z94.4 [facility] [address] [address] Dec, History of liver transplant Z94.4 [facility] [address] [address] Dec, [facility] [address] [address] Dec, History of liver transplant Z94.4 [facility] [address] [address] November, [facility] [address] [address] November, [facility] [address] [address] November, History of liver transplant Z94.4 [facility] [address] [address] November, History of liver transplant Z94.4 [place] [address] [address] November, Chronic renal failure, stage 4 (severe) N18.4 ; Chronic hepatitis C without hepatic coma B18.2 and Chronic atrial fibrillation I48.2 [place] [address] [address] Oct, History of liver transplant Z94.4 [place] [address] [address] Oct, History of liver transplant Z94.4 [place] [address] [address] Oct, [place] [address] [address] Oct, History of liver transplant Z94.4 [place] [address] [address] Sep, History of liver transplant Z94.4 [facility] [address] [address] Aug, History of liver transplant Z94.4 [facility] [address] [address] Aug, Other chronic pain G89.29 and Kidney peace lure N19 [place] [address] [address] Aug, [facility] [address] [facility] [place] [address] Aug, History of liver transplant Z94.4 [facility] [address] [facility] [place] [address] Aug, History of liver transplant Z94.4 [facility] [address] [place] [id number] [place] [address] Jul, History of liver transplant Z94.4 [facility] [address] [facility] [place] [address] Jul, [facility] [address] [place] [id number] [place] [address] Jul, [facility] [address] [facility] [place] [address] Jul, History of liver transplant Z94.4 [facility] [address] [facility] [place] [address] Jun, [facility] [address] [facility] [place] [address] Jun, History of liver transplant Z94.4 [facility] [address] [place] [id number] [place] [address] Jun, [facility] [address] [place] [id number] [place] [address] Jun, History of liver transplant Z94.4 [facility] [address] [facility] [place] [address] May, Bronchitis J40 [facility] [address] [facility] [place] [address] May, [facility] [address] [place] [id number] [place] [address] May, [facility] [address] [place] [id number] [place] [address] May, History of liver transplant Z94.4 [facility] [address] [place] [id number] [place] [address] May, Other chronic pain G89.29 [facility] [address] [place] [id number] [place] [address] May, [facility] [address] [place] [id number] [place] [address] Apr, History of liver transplant Z94.4 [facility] [address] [place] [address] [place] [address] Mar, History of liver transplant Z94.4 [facility] [address] [place] [id number] [place] [address] Feb, History of liver transplant Z94.4 [facility] [address] [place] [id number] [place] [address] Jan, History of liver transplant Z94.4 [facility] [address] [place] [address] [place] [address] Jan, Encounter for long-term opiate analgesic use Z79.891 [facility] [address] [place] [address] [place] [address] Jan, [facility] [address] [address] Dec, History of liver transplant Z94.4 [facility] [address] [place] [address] [place] [address] Dec, Other chronic pain G89.29 ; Unspecified abdominal pain R10.9 and Sciatica of left side M54.32 [facility] [address] [place] [id number] [place] [address] November, History of liver transplant Z94.4 [facility] [address] [place] [address] [place] [address] Oct, History of liver transplant Z94.4 [facility] [address] [place] [id number] [place] [address] Oct, History of liver transplant Z94.4 [facility] [address] [address] Oct, Sciatica of left side M54.32 [place] [address] [address] Sep, [place] [address] [address] Sep, Sciatica of left side M54.32 and Flu-lik e symptoms R68.89 [place] [address] [address] Sep, Sciatica of left side M54.32 [place] [address] [address] Aug, History of liver transplant Z94.4 [place] [address] [address] Aug, Sciatica of left side M54.32 [place] [address] [address] Jul, Generalized edema R60.1 [place] [address] [address] Jun, Sciatica of left side M54.32 [place] [address] [address] Jun, Sciatica of left side M54.32 [place] [address] [address] May, Sciatica of left side M54.32 ; Encounter for immunization Z23 ; History of liver transplant Z94.4 and Chronic obstructive pulmonary disease, unspecified COPD type J44.9 [place] [address] [address] May, Sciatica of left side M54.32 [place] [address] [address] Apr, Sciatica of left side M54.32 [place] [address] [address] 15 Mar, 2017 Sciatica of left side M54.32 [facility] [address] [address] 07 Mar, 2017 Sciatica of left side M54.32 [facility] [address] [address] Feb, Sciatica of left side M54.32 [facility] [address] [address] Jan, [facility] [address] [address] Jan, Essential hypertension I10 and Reactive depression F32.9 [facility] [address] [address] Jan, Sciatica of left side M54.32 [facility] [address] [address] Jan, [facility] [address] [address] Dec, [facility] [address] [address] Dec, Sciatica of left side M54.32 [facility] [address] [address] November, Sciatica of left side M54.32 [facility] [address] [address] Oct, Sciatica of left side M54.32 [facility] [address] [address] Sep, [facility] [address] [address] Sep, Sciatica of left side M54.32 [facility] [address] [address] Sep, Sciatica of left side M54.32 [facility] [address] [facility] [place] [address] Sep, Sciatica of left side M54.32 [facility] [address] [place] [id number] [place] [address] Aug, Sciatica of left side M54.32 [facility] [address] [place] [id number] [place] [address], [place] [address] Aug, [facility] [address] [place] [address] [place] [address] Jun, Sciatica of left side M54.32 [facility] [address] [place] [address] Jun, [facility] [address] [place] [id number] [place] [address] Jun, [facility] [address] [place] [id number] [place] [address] May, [facility] [address] [place] [address] [id number] [place] [address] May, [facility] [address] [address] Apr, [facility] [address] [address] Apr, Sciatica of left side M54.32 [facility] [address] [place] [address] [place] [address] Mar, [facility] [address] [place] [address] [id number] [place] [address] Feb, [facility] [address] [address] Jan, [facility] [address] [place] [address] [place] [address] Jan, Sciatica of left side M54.32 [facility] [address] [place] [id number] [place] [address] Dec, History of liver transplant Z94.4 and Sc iatica of left side M54.32 [facility] [address] [facility] [place] [address] Oct, IMMUNIZATIONS No Known Immunizations SOCIAL HISTORY Never Assessed REASON FOR VISIT controlled 10/04 and 10/07 PLAN OF CARE VITAL SIGNS MEDICATIONS Medication Instructions Dosage Frequency Start Date End Date Duration S tatus OxyContin 40 MG Orally 3 times a day 2 tablet 8h Sep, 28 days Active Oxycodone HCl 30 MG Orally every 4 hrs 1 tablet 4h Sep, 28 days Active RESULTS No Results PROCEDURES No Known procedures INSTRUCTIONS MEDICATIONS ADMINISTERED No Known Medications MEDICAL (GENERAL) HISTORY Type Description Date Medical History cirrhosis of liver Medical History liver transplant Medical History ulcers Medical History kidney failure Surgical History liver transplant Surgical History kidney biopsy Surgical History endoscopy for ulcers 04/25 Surgical History central line and pic line 06/2019 Hospitalization History liver transplant Hospitalization History [facility] Jul 2017 Hospitalization History [facility] for [facility] 04/25 Hospitalization History [place] trans [place] x3 days - to xins were very high 05/26 Hospitalization History kidney failure 09/24 Hospitalization History pneumonia 10/25 Hospitalization History [facility] 01/20-01/26
[2019-10-12] MEDS ORDERED: morphine INJ 10 MG/ML 1ML (SYR OR VIAL) IVP STA ×3 (09:40→12:34)
--- OUTSIDE RECORDS SUMMARY | 2019-10-12 09:45 | XMS REPORT | Continuity of Care Document ---
Author Organization Unknown Address Unknown Phone Unavailable Allergies Active Description Code Type Severity Reaction Onset Reported/Identified Relationship to Patient Clinical Status Yes CONTRAST DYE/RADIOLOGY DYE CON TRAST DYE/RADIOLOGY DYE Unknown N/A 4 Yes NSADS NSADS Unknown N/A 04/10/2014 Yes Heparin Analogues [id number] Drug Allergy Mild N/A 07/22/2015 Yes codeine [id number] Drug Allergy Unknown TAKES OXYCODONE 07/22/2015 Yes fentanyl [id number] Drug Allergy Unknown N/A 07/22/2015 Yes morphine [id number] Drug Allergy Unknown N/A 07/22/2015 Yes sumatriptan [id number] Drug Aller gy Unknown N/A 07/22/2015 Yes zolpidem [id number] Drug Allergy Unknown N/A 07/22/2015 Medications There [...] 996.82 02/07/2010 Ot E937.9 03/19/2010 Ot 285.9 ANEM IA NOS 03/19/2010 Ot 300.4 DYST HYMIC DISORDER 03/19/2010 Ot 789.00 ABD OMINAL PAIN, UNSPECIFIED SITE 03/19/2010 Ot V42.7 LIVE R TRANSPLANT STATUS 03/19/2010 Ot V58.69 OTH MED,LT,CURRENT USE 03/21/2010 Ot 070.70 03/21/2010 Ot 285.9 03/21/2010 Ot 535.40 03/21/2010 Ot 553.3 03/21/2010 Ot 572.8 03/21/2010 Ot V42.7 03/21/2010 Ot V58.69 04/12/2010 Ot 300.4 DYST HYMIC DISORDER 04/12/2010 Ot 496 CHR AI RWAY OBSTRUCT NEC 04/12/2010 Ot 560.9 INTE STINAL OBSTRUCT NOS 04/12/2010 Ot V42.7 LIVE R TRANSPLANT STATUS 04/12/2010 Ot V58.69 OTH MED,LT,CURRENT USE 05/24/2010 Ot 285.9 ANEM IA NOS 05/24/2010 Ot 796.4 ABN CLINICAL FINDING NEC 07/11/2010 Ot 276.51 DEH YDRATION 07/11/2010 Ot 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 07/11/2010 Ot 285.9 ANEM IA NOS 07/11/2010 Ot 300.00 ANX IETY STATE NOS 07/11/2010 Ot 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 07/11/2010 Ot 493.20 CHR ONIC OBSTRUCTIVE ASTHMA, NOS 07/11/2010 Ot 572.2 HEPA TIC ENCEPHALOPATHY 07/11/2010 Ot 572.8 OTH SEQUELA, CHR LILIANA DIS 07/11/2010 Ot 573.3 HEPA TITIS NOS 07/11/2010 Ot 996.82 COM PLICATIONS OF TRANSPLANTED LIVER 07/11/2010 Ot V10.07 HX OF LIVER MALIGNANCY 07/11/2010 Ot V11.3 HX O F ALCOHOLISM 09/14/2010 Ot 285.9 ANEM IA NOS 09/14/2010 Ot 796.4 ABN CLINICAL FINDING NEC 01/20/2012 Ot 155.0 MAL FIDEL LIVER, PRIMARY 01/20/2012 Ot 496 CHR AI RWAY OBSTRUCT NEC 01/20/2012 Ot 572.8 OTH SEQUELA, CHR LILIANA DIS 01/20/2012 Ot 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, UNSPECIFIED 01/20/2012 Ot 784.0 HEAD ACHE 01/20/2012 Ot 787.01 JACQUI SEA WITH VOMITING 01/20/2012 Ot 791.9 ABN URINE FINDINGS NEC 01/20/2012 Ot V42.7 LIVE R TRANSPLANT STATUS 10/16/2012 Ot 573.8 LIVE R DISORDERS NEC 10/16/2012 Ot 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 10/16/2012 Ot 789.09 ABD OMINAL PAIN, OTHER SPECIFIED SITE 01/29/2013 JJ CORRAL DO Ot 959.4 HAND INJURY NOS 01/29/2013 JJ CORRAL DO Ot E000.8 OTHER EXTERNAL CAUSE STATUS 01/29/2013 JJ CORRAL DO Ot E928.9 ACCIDENT NOS 03/30/2013 TEREZA BRADEN MD Ot 572.8 OTH SEQUELA, CHR LILIANA DIS 03/30/2013 TEREZA BRADNE MD Ot 585.3 CHRONIC KIDNEY DISEASE, STAGE [...] 07/08/2013 MARIA LUISA STARR, MICHAEL Joel Ot 276.5 1 DEHYDRATION 07/08/2013 MARIA LUISA STARR, MICHAEL Joel Ot 301.9 PERSONALITY DISORDER NOS 07/08/2013 MARIA LUISA STARR, MICHAEL Joel Ot 305.1 TOBACCO USE DISORDER 07/08/2013 MARIA LUISA STARR, MICHAEL Joel Ot 305.9 0 DRUG ABUSE NEC-UNSPEC 07/08/2013 MICHAEL GLASS MD Ot 487.0 INFLUENZA WITH PNEUMONIA 07/08/2013 MICHAEL [...] 724.3 SCIATICA 03/02/2014 LOYDA DOMINGUEZ MD Ot 305. 1 TOBACCO USE DISORDER 03/02/2014 LOYDA DOMINGUEZ MD Ot 427. 9 CARDIAC DYSRHYTHMIA NOS 03/02/2014 LOYDA DOMINGUEZ MD Ot 585. 9 CHRONIC KIDNEY DISEASE, UNSPECIFIED 03/02/2014 LOYDA DOMINGUEZ MD Ot 790. 29 OTHER ABNORMAL GLUCOSE 03/02/2014 LOYDA DOMINGUEZ MD Ot V15. 81 HX OF PAST NONCOMPLIANCE 03/15/2014 TEREZA BRADEN MD Ot 572.8 OTH SEQUELA, CHR LILIANA DIS 03/15/2014 TEREZA BRADEN MD Ot 585.3 CHRONIC KIDNEY DISEASE, STAGE III (MODER 03/15/2014 EDUARDO PALACIO Ot V42.7 LIVER TRANSPLANT STATUS 03/15/2014 EDUARDO PALACIO Ot V58.44 AFTERCARE FOLLOWING ORGAN TRANSPLANT 03/15/2014 EDUARDO PALACIO Ot V58.69 OTH MED,LT,CURRENT USE 04/12/2014 MICHAEL GLASS MD Ot 276.5 1 DEHYDRATION 04/12/2014 MICHAEL GLASS MD Ot 285.9 ANEMIA NOS 04/12/2014 MICHAEL GLASS MD Ot 435.9 TRANS CEREB ISCHEMIA NOS 04/12/2014 MICHAEL GLASS MD Ot 496 CHR AIRWAY OBSTRUCT NEC 04/12/2014 MICHAEL GLASS MD Ot 572.2 HEPATIC ENCEPHALOPATHY 04/12/2014 MICHAEL GLASS MD Ot 572.8 OTH SEQUELA, CHR LILIANA DIS 04/12/2014 MICHAEL GLASS MD Ot 724.3 SCIATICA 04/12/2014 MARIA LUISA STARR, MICHAEL Joel Ot 790.6 ABN BLOOD CHEMISTRY NEC 04/12/2014 MARIA LUISA STARR, MICHAEL Joel Ot V04.8 1 ND FOR PROPHYLACTIC VACCIN AND INOCULATI 04/12/2014 MICHAEL GLASS MD Ot V42.7 LIVER TRANSPLANT STATUS 04/24/2014 TEREZA BRADEN MD Ot 572.8 OTH SEQUELA, CHR LILIANA DIS 04/24/2014 TEREZA BRADEN MD Ot 585.3 CHRONIC KIDNEY DISEASE, STAGE III (MODER 05/21/2014 RAMESH STARR, PRISCILA B Ot 268.9 05/21/2014 RAMESH STARR, PRISCILA B Ot 275.2 05/21/2014 RAMESH STARR, PRISCILA B Ot 585.3 05/27/2014 TEREZA BRADEN MD Ot 572.8 05/27/2014 TEREZA BRADEN MD Ot 585.3 05/27/2014 TEREZA BRADEN MD Ot 790.6 06/21/2014 EDUARDO PALACIO Ot V42.7 LIVER TRANSPLANT STATUS 06/21/2014 EDUARDO PALACIO Ot V58.44 AFTERCARE FOLLOWING ORGAN TRANSPLANT 06/21/2014 EDUARDO PALACIO Ot V58.69 OTH MED,LT,CURRENT USE 07/20/2014 TEREZA BRADEN MD Ot [...] 08/12/2014 EDUARDO PALACIO Ot V58.44 08/12/2014 EDUARDO PALACIOBS Ot V58.69 08/12/2014 ASIYA STARR, TEREZA Mathew Ot 572.8 08/12/2014 ASIYA STARR, TEREZA Mathew [...] ASIYA STARR, TEREZA Mathew Ot 790.6 11/19/2014 ASIYA STARR, TEREZA Mathew Ot 572.8 11/19/2014 ASIYA STARR, YADY Ot 585.3 11/19/2014 ASIYA STARR, YADY Ot 790.6 12/18/2014 MARIA LUISA STARR, MICHAEL J Ot 729.8 2 12/18/2014 MARIA LUISA STARR, MICHAEL J Ot 780.6 0 12/18/2014 MARIA LUISA STARR, MICHAEL J Ot V58.6 9 12/29/2014 ASIYA STARR, TEREZA Mathew Ot 572.8 12/29/2014 ASIYA STARR, YADY Ot [...] 790.6 ABN BLOOD CHEMISTRY NEC 02/17/2015 ASIYA STARR, TEREZA Mathew Ot 572.8 02/17/2015 ASIYA STARR, TEREZA Mathew Ot 585.3 02/17/2015 ASIYA STARR, TEREZA Mathew Ot 790.6 02/17/2015 MARIA LUISA STARR, MICHAEL J Ot 573.9 02/17/2015 MARIA LUISA STARR, MICHAEL J Ot 780.6 0 02/17/2015 MARIA LUISA STARR, MICHAEL J Ot V42.7 03/17/2015 ASIYA STARR, TEREZA Mathew Ot 572.8 03/17/2015 ASIYA STARR, TEREZA Mathew Ot 585.3 03/17/2015 ASIYA STARR, TEREZA Mathew [...] 790.6 05/21/2015 ASIYA STARR, TEREZA Mathew Ot K72.9 0 05/21/2015 ASIYA STARR, TEREZA Mathew Ot N18.3 05/21/2015 ASIYA STARR, TEREZA Mathew Ot R79.8 9 05/21/2015 ASIYA STARR, TEREZA Mathew Ot Z51.8 1 05/21/2015 ASIYA STARR, TEREZA Mathew Ot Z79.8 99 05/21/2015 ASIYA STARR, TEREZA Mathew Ot Z94.4 05/21/2015 MARIA LUISA STARR, MICHAEL Joel Ot K72.9 0 06/11/2015 Ot V42.7 06/11/2015 Ot V58.44 06/11/2015 [...] RAMESH STARR, PRISCILA Vieira Ot 572.8 06/11/2015 RAMESH STARR, PRISCILA [place] Ot 585.9 06/11/2015 EDUARDO PALACIO Ot 572.8 06/11/2015 EDUARDO PALACIO [facility] Ot 585.9 06/11/2015 RAMESH STARR, PRISCILA [place] Ot 285.9 06/11/2015 RAMESH STARR, PRISCILA [place] Ot 572.8 06/11/2015 PRISCILA CHANDLER MD Ot 585.9 06/11/2015 EDUARDO PALACIO [facility] Ot 572.8 06/11/2015 TEREZA BRADEN MD Ot 572.8 06/11/2015 TEREZA BRADEN MD Ot 585.3 06/11/2015 RAMESH STARR, PRISCILA [place] Ot 268.9 06/11/2015 PRISCILA CHANDLER MD Ot V42.7 06/11/2015 MARIA LUISA STARR, MICHAEL Joel Ot 780.7 9 06/11/2015 PRISCILA CHANDLER MD Ot 585.3 06/11/2015 MARIA LUISA STARR, MICHAEL Joel Ot 719.0 6 06/11/2015 MARIA LUISA STARR, MICHAEL Joel Ot 719.4 7 06/11/2015 TEREZA BRADEN MD Ot V42.7 06/11/2015 TEREZA BRADEN MD Ot V58.4 4 06/11/2015 RAMESH STARR, PRISCILA [place] Ot 268.9 06/11/2015 PRISCILA CHANDLER MD Ot 276.8 06/11/2015 RAMESH STARR, PRISCILA [place] Ot 585.3 06/11/2015 RAMESH STARR, PRISCILA [place] Ot 588.81 06/11/2015 MARIA LUISA STARR, MICHAEL Joel Ot 275.4 1 06/11/2015 MARIA LUISA STARR, MICHAEL Joel Ot 276.9 06/11/2015 MARIA LUISA STARR, MICHAEL Joel Ot 427.8 9 06/11/2015 TEREZA BRADEN MD Ot 572.8 06/11/2015 TEREZA BRADEN MD Ot 585.3 06/11/2015 TEREZA BRADEN MD Ot 790.6 06/11/2015 ANGELICA STARR, LOYDA Joel Ot 427. 9 06/11/2015 LOYDA DOMINGUEZ MD Ot 585. 9 06/11/2015 ANGELICA STARR, LOYDA Joel Ot V15. 81 06/11/2015 MARIA LUISA STARR, MICHAEL Joel Ot 721.3 06/11/2015 MARIA LUISA STARR, MICHAEL Joel Ot 722.1 0 06/11/2015 MARIA LUISA STARR, MICHAEL Joel Ot V15.8 8 06/11/2015 MARIA LUISA STARR, MICHAEL Joel Ot 722.5 2 06/11/2015 MARIA LUISA STARR, MICHAEL Joel Ot 737.3 0 06/11/2015 Ot 305.1 06/11/2015 Ot 427.9 06/11/2015 Ot 585.9 06/11/2015 Ot 790.29 06/11/2015 Ot V15.81 06/11/2015 RAMESH STARR, PRISCILA [place] Ot 268.9 06/11/2015 RAMESH STARR, PRISCILA [place] Ot 275.2 06/11/2015 RAMESH STARR, PRISCILA [place] Ot 585.3 06/11/2015 RAMESH STARR, PRISCILA [place] Ot 588.81 06/11/2015 RAMESH STARR, PRISCILA [place] Ot 268.9 06/11/2015 PRISCILA CHANDLER MD Ot 275.2 06/11/2015 PRISCILA CHANDLER MD Ot 585.3 06/11/2015 Ot 338.29 06/11/2015 Ot 573.9 06/11/2015 Ot 729.82 06/11/2015 Ot V58.69 06/11/2015 Ot 268.9 06/11/2015 Ot 275.2 06/11/2015 Ot 403.90 06/11/2015 Ot 585.3 06/11/2015 MARIA LUISA STARR, MICHAEL Joel Ot 729.8 2 06/11/2015 MICHAEL GLASS MD Ot 780.6 0 06/11/2015 MICHAEL GLASS MD Ot V58.6 9 06/11/2015 TEREZA BRADEN MD Ot 571.5 06/11/2015 TEREZA BRADEN MD Ot V42.7 06/11/2015 MICHAEL GLASS MD Ot 573.9 06/11/2015 MICHAEL GLASS MD Ot 780.6 0 06/11/2015 MICHAEL GLASS MD Ot V42.7 06/11/2015 EDUARDO PALACIO Ot 268.9 06/11/2015 EDUARDO PALACIO Ot 272.4 06/11/2015 EDUARDO PALACIO Ot V42.7 06/11/2015 EDUARDO PALACIO Ot V58.69 06/11/2015 TEREZA BRADEN MD Ot K72.9 0 06/11/2015 TEREZA BRADEN MD Ot N18.3 06/11/2015 TEREZA BRADEN MD Ot R79.8 9 06/11/2015 TEREZA BRADEN MD Ot Z51.8 1 06/11/2015 TEREZA BRADEN MD Ot Z79.8 99 06/11/2015 TEREZA BRADEN MD Ot Z94.4 06/11/2015 MICHAEL GLASS MD Ot K72.9 0 07/12/2015 TEREZA BRADEN MD Ot K72.9 0 HEPATIC FAILURE, UNSPECIFIED WITHOUT COM 07/12/2015 TEREZA BRADEN MD Ot N18.3 CHRONIC KIDNEY DISEASE, STAGE 3 (MODERAT 07/12/2015 TEREZA BRADEN MD Ot R79.8 9 OTHER SPECIFIED ABNORMAL FINDINGS OF BLO 07/12/2015 TEREZA BRADEN MD Ot V42.7 LIVER TRANSPLANT STATUS 07/12/2015 TEREZA BRADEN MD Ot V58.6 9 OT MED,LT,CURRENT USE 07/12/2015 TEREZA BRADEN MD Ot V58.8 3 ENCOUNTER FOR THERAPEUTIC DRUG MONITORIN 07/12/2015 TEREZA BRADEN MD Ot Z51.8 1 ENCOUNTER FOR THERAPEUTIC DRUG LEVEL MON 07/12/2015 TEREZA BRADEN MD Ot Z79.8 99 OTHER CORRECTION (CURRENT) DRUG THERAPY 07/12/2015 TEREZA BRADEN MD Ot Z94.4 LIVER TRANSPLANT STATUS 07/13/2015 MARIA LUISA STARR, MICHAEL Joel Ot K72.9 0 07/22/2015 Ot V42.7 07/22/2015 Ot V58.44 07/22/2015 [...] 07/22/2015 Ot 789.09 07/22/2015 RAMESH STARR, PRISCILA B Ot 285.9 07/22/2015 RAMESH STARR, PRISCILA [place] Ot 572.8 07/22/2015 RAMESH STARR, PRISCILA B Ot 585.9 07/22/2015 EDUARDO PALACIO Ot 572.8 07/22/2015 EDUARDO PALACIO Ot 585.9 07/22/2015 RAMESH STARR, PRISCILA B Ot 285.9 07/22/2015 RAMESH STARR, PRISCILA B Ot 572.8 07/22/2015 RAMESH STARR, PRISCILA [place] Ot 585.9 07/22/2015 EDUARDO PALACIO Ot 572.8 07/22/2015 ASIYA STARR, TEREZA Mathew Ot 572.8 07/22/2015 ASIYA STARR, TEREZA Mathew Ot 585.3 07/22/2015 RAMESH STARR, PRISCILA [place] Ot 268.9 07/22/2015 RAMESH STARR, PRISCILA [place] Ot V42.7 07/22/2015 MARIA LUISA STARR, MICHAEL Joel Ot 780.7 9 07/22/2015 RAMESH STARR, PRISCILA B Ot 585.3 07/22/2015 MARIA LUISA STARR, MICHAEL J Ot 719.0 6 07/22/2015 MARIA LUISA STARR, MICHAEL J Ot 719.4 7 07/22/2015 ASIYA STARR, TEREZA Mathew Ot V42.7 07/22/2015 TEREZA BRADEN MD Ot V58.4 4 07/22/2015 ARMESH STARR, PRISCILA B Ot 268.9 07/22/2015 RAMESH STARR, PRISCILA B Ot 276.8 07/22/2015 RAMESH STARR, PRISCILA B Ot 585.3 07/22/2015 RAMESH STARR, PRISCILA B Ot 588.81 07/22/2015 MARIA LUISA STARR, MICHAEL Joel Ot 275.4 1 07/22/2015 MARIA LUISA STARR, MICHAEL J Ot 276.9 07/22/2015 MARIA LUISA STARR, MICHAEL J Ot 427.8 9 07/22/2015 ASIYA STARR, TEREZA Mathew Ot 572.8 07/22/2015 ASIYA STARR, TEREZA Mathew Ot 585.3 07/22/2015 TEREZA BRADEN MD Ot 790.6 07/22/2015 ANGELICA STARR, LOYDA Joel Ot 427. 9 07/22/2015 ANGELICA STARR, [facility] Marycruz Ot 585. 9 07/22/2015 ANGELICA STARR, BASHUNTER J Ot V15. 81 07/22/2015 MARIA LUISA STARR, MICHAEL J Ot 721.3 07/22/2015 MARIA LUISA STARR, MICHAEL J Ot 722.1 0 07/22/2015 MARIA LUISA STARR, MICHAEL J Ot V15.8 8 07/22/2015 MARIA LUISA STARR, MICHAEL J Ot 722.5 2 07/22/2015 MARIA LUISA STARR, MICHAEL J Ot 737.3 0 07/22/2015 Ot 305.1 07/22/2015 Ot 427.9 07/22/2015 Ot 585.9 07/22/2015 Ot 790.29 07/22/2015 Ot V15.81 07/22/2015 RMAESH STARR, PRISCILA B Ot 268.9 07/22/2015 RAMESH STARR, PRISCILA B Ot 275.2 07/22/2015 RAMESH STARR, PRISCILA B Ot 585.3 07/22/2015 RAMESH STARR, PRISCILA B Ot 588.81 07/22/2015 RAMESH STARR, PRISCILA B Ot 268.9 07/22/2015 RAMESH STARR, PRISCILA [place] Ot 275.2 07/22/2015 RAMESH STARR, PRISCILA [place] Ot 585.3 07/22/2015 Ot 338.29 07/22/2015 Ot 573.9 07/22/2015 Ot 729.82 07/22/2015 Ot V58.69 07/22/2015 Ot 268.9 07/22/2015 Ot 275.2 07/22/2015 Ot 403.90 07/22/2015 Ot 585.3 07/22/2015 MARIA LUISA STARR, MICHAEL Marycruz Ot 729.8 2 07/22/2015 MARIA LUISA STARR, [facility] Ot 780.6 0 07/22/2015 MARIA LUISA STARR, MICHAEL Marycruz Ot V58.6 9 07/22/2015 ASIYA STARR, TEREZA Mathew Ot 571.5 07/22/2015 TEREZA BRADEN MD Ot V42.7 07/22/2015 MARIA LUISA STARR, MICHAEL Marycruz Ot 573.9 07/22/2015 MARIA LUISA STARR, MICHAEL Marycruz Ot 780.6 0 07/22/2015 MARIA LUISA STARR, [facility] Ot V42.7 07/22/2015 EDUARDO PALACIO Ot 268.9 07/22/2015 EDUARDO PALACIO Ot 272.4 07/22/2015 EDUARDO PALACIO Ot V42.7 07/22/2015 EDUARDO PALACIO Ot V58.69 07/22/2015 MARIA LUISA STARR, MICHAEL Joel Ot K72.9 0 07/22/2015 TEREZA BRADEN MD Ot K72.9 0 07/22/2015 TEREZA BRADEN MD Ot N18.3 07/22/2015 TEREZA BRADEN MD Ot R79.8 9 07/22/2015 EDUARDO PALACIO Ot Z51.81 07/22/2015 EDUARDO PALACIO Ot Z79.899 07/22/2015 EDUARDO PALACIO Ot Z94.4 07/22/2015 Ot 573.8 07/22/2015 Ot 593.9 07/22/2015 Ot 789.09 07/22/2015 Ot 305.1 07/22/2015 Ot 427.9 07/22/2015 Ot 585.9 07/22/2015 Ot 790.29 07/22/2015 Ot V15.81 07/22/2015 MICHAEL GLASS MD Ot K72.9 0 07/22/2015 TEREZA BRADEN MD Ot K72.9 0 07/22/2015 TEREZA BRADEN MD Ot N18.3 07/22/2015 TEREZA BRADEN MD Ot R79.8 9 07/22/2015 EDUARDO PALACIO Ot Z51.81 07/22/2015 EDUARDO PALACIOBS Ot Z79.899 07/22/2015 EDUARDO PALACIO Ot Z94.4 07/24/2015 MICHAEL GLASS MD Ot B49 UNSPECIFIED MYCOSIS 07/24/2015 MICHAEL GLASS MD Ot 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 07/24/2015 MICHAEL GLASS MD Ot F17.2 10 NICOTINE DEPENDENCE, CIGARETTES, UNCOMPL 07/24/2015 MICHAEL GLASS MD Ot G89.2 9 OTHER CHRONIC PAIN 07/24/2015 MICHAEL GLASS MD Ot J16.8 PNEUMONIA DUE TO OTHER SPECIFIED INFECTI 07/24/2015 MICHAEL GLASS MD Ot J44.9 CHRONIC OBSTRUCTIVE PULMONARY DISEASE, U 07/24/2015 MICHAEL GLASS MD Ot K72.9 0 HEPATIC FAILURE, UNSPECIFIED WITHOUT COM 07/24/2015 MARIA LUISA STARR, MICHAEL Joel Ot Z66 DO NOT RESUSCITATE 07/24/2015 MICHAEL GLASS MD Ot Z85.0 5 PERSONAL HISTORY OF MALIGNANT NEOPLASM O 07/24/2015 MICHAEL GLASS MD Ot Z94.4 LIVER TRANSPLANT STATUS 07/29/2015 MICHAEL GLASS MD Ot K72.9 0 HEPATIC FAILURE, UNSPECIFIED WITHOUT COM 08/10/2015 MICHAEL GLASS MD Ot F17.2 10 08/10/2015 MICHAEL GLASS MD Ot R05 08/10/2015 MICHAEL GLASS MD Ot R10.9 08/10/2015 MICHAEL GLASS MD Ot R91.1 08/12/2015 MICHAEL GLASS MD Ot F17.2 10 08/12/2015 MICHAEL GLASS MD Ot R05 08/12/2015 MICHAEL GLASS MD Ot R10.9 08/12/2015 MICHAEL GLASS MD Ot R91.1 08/13/2015 CHIO STANLEY DOI Ot B49 08/13/2015 LIZETH SULLIVAN MARJAN Ot R91.8 08/13/2015 LIZETH SULLIVANMARJAN Ot Z94.4 09/27/2015 EDUARDO PALACIO Ot Z51.81 09/27/2015 EDUARDO PALACIO Ot Z79.899 09/27/2015 EDUARDO PALACIO Ot Z94.4 09/27/2015 ASIYA STARR, YADY Ot K72.9 0 09/27/2015 ASIYA STARR, YADY Ot N18.3 09/27/2015 ASIYA STARR, YADY Ot R79.8 9 09/28/2015 ASIYA STARR, TEREZA Mathew Ot K72.9 0 09/28/2015 ASIYA STARR, YADY Ot N18.3 09/28/2015 ASIYA STARR, YADY Ot R79.8 9 09/29/2015 ASIYA STARR, TEREZA Mathew Ot K72.9 0 09/29/2015 ASIYA STARR, TEREZA Mathew Ot N18.3 09/29/2015 ASIYA STARR, TEREZA Mathew Ot R79.8 9 10/13/2015 EDUARDO PALACIO Ot Z51.81 10/13/2015 EDUARDO PALACIO Ot Z79.899 10/13/2015 EDUARDO PALACIO Ot Z94.4 10/19/2015 ASIYA STARR, YADY Ot K72.9 0 10/19/2015 ASIYA STARR, TEREZA Mathew Ot N18.3 10/19/2015 ASIYA STARR, TEREZA Mathew Ot R79.8 9 10/21/2015 EDUARDO PALACIO Ot Z51.81 10/21/2015 EDUARDO PALACIO Ot Z79.899 10/21/2015 EDUARDO PALACIO Ot Z94.4 10/27/2015 Ot V42.7 LIVE R TRANSPLANT STATUS 10/27/2015 Ot V58.44 AFT ERCARE FOLLOWING ORGAN TRANSPLANT 10/27/2015 Ot V58.69 OTH MED,LT,CURRENT USE 10/27/2015 Ot 571.5 CIRR HOSIS OF LIVER NOS 10/27/2015 Ot 786.9 RESP SYS/CHEST SYMP NEC 10/27/2015 Ot 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 10/27/2015 Ot 285.9 ANEM IA NOS 10/27/2015 Ot 572.8 OTH SEQUELA, CHR LILIANA DIS 10/27/2015 Ot 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 10/27/2015 Ot 571.2 ALCO HOL CIRRHOSIS LIVER 10/27/2015 Ot 572.8 OTH SEQUELA, CHR LILIANA DIS 10/27/2015 Ot 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 10/27/2015 Ot 571.2 ALCO HOL CIRRHOSIS LIVER 10/27/2015 Ot 572.8 OTH SEQUELA, CHR LILIANA DIS 10/27/2015 Ot 572.8 OTH SEQUELA, CHR LILIANA DIS 10/27/2015 Ot 586 RENAL FAILURE NOS 10/27/2015 Ot 572.8 OTH SEQUELA, CHR LILIANA DIS 10/27/2015 Ot 572.8 OTH SEQUELA, [facility] LILIANA DIS 10/27/2015 Ot 572.8 OTH SEQUELA, [facility] LILIANA DIS 10/27/2015 Ot 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 10/27/2015 Ot 571.2 ALCO HOL CIRRHOSIS LIVER 10/27/2015 Ot 572.8 OTH SEQUELA, CHR LILIANA DIS 10/27/2015 Ot 572.8 OTH SEQUELA, [facility] LILIANA DIS 10/27/2015 Ot 572.8 OTH SEQUELA, [facility] LILIANA DIS 10/27/2015 Ot 572.8 OTH SEQUELA, [facility] LILIANA DIS 10/27/2015 Ot 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 10/27/2015 Ot 572.8 OTH SEQUELA, [facility] LILIANA DIS 10/27/2015 Ot 572.8 OTH SEQUELA, CHR LILIANA DIS 10/27/2015 Ot 572.8 OTH SEQUELA, CHR LILIANA DIS 10/27/2015 Ot 572.8 OTH SEQUELA, [facility] LILIANA DIS 10/27/2015 Ot 572.8 OTH SEQUELA, [facility] LILIANA DIS 10/27/2015 Ot 572.8 OTH SEQUELA, [facility] LILIANA DIS 10/27/2015 Ot 572.8 OTH SEQUELA, CHR LILIANA DIS 10/27/2015 Ot 572.8 OTH SEQUELA, [facility] LILIANA DIS 10/27/2015 Ot 572.8 OTH SEQUELA, [facility] LILIANA DIS 10/27/2015 Ot 572.8 OTH SEQUELA, [...] LILIANA DIS 10/27/2015 Ot 572.8 OTH SEQUELA, [facility] LILIANA DIS 10/27/2015 Ot 572.8 OTH SEQUELA, [facility] LILIANA DIS 10/27/2015 Ot 285.9 ANEM IA NOS 10/27/2015 Ot 572.8 OTH SEQUELA, [facility] LILIANA DIS 10/27/2015 Ot 585.6 END STAGE RENAL DISEASE 10/27/2015 Ot V42.7 LIVE R TRANSPLANT STATUS 10/27/2015 Ot 572.8 OTH SEQUELA, [facility] LILIANA DIS 10/27/2015 Ot 572.8 OTH SEQUELA, [facility] LILIANA DIS 10/27/2015 Ot 572.8 OTH SEQUELA, [facility] LILIANA DIS 10/27/2015 Ot 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5 CIRR HOSIS OF LIVER NOS 10/27/2015 Ot V42.7 LIVE R TRANSPLANT STATUS 10/27/2015 Ot 572.8 OTH SEQUELA, [facility] [place] DIS 10/27/2015 Ot 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, STAGE III (MODER 10/27/2015 Ot 285.9 ANEM IA NOS 10/27/2015 Ot 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, STAGE III (MODER 10/27/2015 Ot 572.8 OTH SEQUELA, [facility] [place] DIS 10/27/2015 Ot 572.8 OTH SEQUELA, [facility] [place] DIS 10/27/2015 Ot 572.8 OTH SEQUELA, [facility] [place] DIS 10/27/2015 Ot 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, STAGE III (MODER 10/27/2015 Ot 572.8 OTH SEQUELA, [facility] [place] DIS 10/27/2015 Ot 572.8 OTH SEQUELA, [facility] [place] DIS 10/27/2015 Ot 070.54 CHR ONIC HEPATITIS C W/O HEPATIC COMA 10/27/2015 Ot 285.9 ANEM IA NOS 10/27/2015 Ot 491.20 OBS TR CHRONIC BRONCHITIS, W/O EXACERBATI 10/27/2015 Ot 572.8 OTH SEQUELA, [facility] [place] DIS 10/27/2015 Ot 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, UNSPECIFIED 10/27/2015 Ot V42.7 LIVE R TRANSPLANT STATUS 10/27/2015 Ot 572.8 OTH SEQUELA, [facility] [place] DIS 10/27/2015 Ot 572.8 OTH SEQUELA, [facility] [place] DIS 10/27/2015 Ot 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, UNSPECIFIED 10/27/2015 Ot 572.8 OTH SEQUELA, [facility] [place] DIS 10/27/2015 Ot 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, UNSPECIFIED 10/27/2015 Ot 572.8 OTH SEQUELA, [facility] [place] DIS 10/27/2015 Ot 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, STAGE III (MODER 10/27/2015 Ot 572.8 OTH SEQUELA, [facility] [place] DIS 10/27/2015 Ot 572.8 OTH SEQUELA, [facility] [place] DIS 10/27/2015 Ot 285.9 ANEM IA NOS 10/27/2015 Ot 496 CHR AI RWAY OBSTRUCT NEC 10/27/2015 Ot 572.8 OTH SEQUELA, [facility] [place] DIS 10/27/2015 Ot 607.84 IMP OTENCE, ORGANIC ORIGN 10/27/2015 Ot 780.79 OTH MALAISE FATIGUE 10/27/2015 Ot V42.7 LIVE R TRANSPLANT STATUS 10/27/2015 Ot V58.69 OTH MED,LT,CURRENT USE 10/27/2015 Ot 572.8 OTH SEQUELA, [facility] [place] DIS 10/27/2015 Ot 796.4 ABN CLINICAL FINDING NEC 10/27/2015 Ot V42.7 LIVE R TRANSPLANT STATUS 10/27/2015 Ot 572.8 OTH SEQUELA, [facility] [place] DIS 10/27/2015 Ot 572.8 OTH SEQUELA, [facility] [place] DIS 10/27/2015 Ot 572.8 OTH SEQUELA, [facility] [place] DIS 10/27/2015 Ot 070.54 CHR ONIC HEPATITIS C W/O HEPATIC COMA 10/27/2015 Ot 572.8 OTH SEQUELA, [facility] [place] DIS 10/27/2015 Ot 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, STAGE III (MODER 10/27/2015 Ot 572.8 OTH SEQUELA, [facility] [place] DIS 10/27/2015 Ot 572.8 OTH SEQUELA, [facility] [place] DIS 10/27/2015 Ot 572.8 OTH SEQUELA, [facility] [place] DIS 10/27/2015 Ot 572.8 OTH SEQUELA, [facility] [place] DIS 10/27/2015 Ot 572.8 OTH SEQUELA, [facility] [place] DIS 10/27/2015 Ot 572.8 OTH SEQUELA, [facility] [place] DIS 10/27/2015 Ot V42.7 LIVE R TRANSPLANT STATUS 10/27/2015 Ot 268.9 MEAGAN MIN D DEFICIENCY NOS 10/27/2015 Ot 281.1 B12 DEFIC ANEMIA NEC 10/27/2015 Ot 285.9 ANEM IA NOS 10/27/2015 Ot 491.21 OBS TR CHRONIC BRONCHITIS, W (ACUTE) EXAC 10/27/2015 Ot 572.8 OTH SEQUELA, [facility] [place] DIS 10/27/2015 Ot 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, STAGE III (MODER 10/27/2015 Ot V42.7 LIVE R TRANSPLANT STATUS 10/27/2015 Ot V58.69 OTH MED,LT,CURRENT USE 10/27/2015 Ot 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.8 LIVE R DISORDERS NEC 10/27/2015 Ot 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 10/27/2015 Ot 721.3 LUMB OSACRAL SPONDYLOSIS 10/27/2015 Ot V58.69 OTH MED,LT,CURRENT USE 10/27/2015 Ot 572.8 OTH SEQUELA, [facility] [place] DIS 10/27/2015 Ot V42.7 LIVE R TRANSPLANT STATUS 10/27/2015 Ot 572.8 OTH SEQUELA, [facility] [place] DIS 10/27/2015 Ot 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, STAGE III (MODER 10/27/2015 Ot 572.8 OTH SEQUELA, [facility] [place] DIS 10/27/2015 Ot 572.8 OTH SEQUELA, [facility] [place] DIS 10/27/2015 Ot 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, STAGE III (MODER 10/27/2015 Ot 572.8 OTH SEQUELA, [facility] [place] DIS 10/27/2015 Ot 268.9 MEAGAN MIN D DEFICIENCY NOS 10/27/2015 Ot 275.2 DIS MAGNESIUM METABOLISM 10/27/2015 Ot 572.8 OTH SEQUELA, [facility] [place] DIS 10/27/2015 Ot 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, STAGE III (MODER 10/27/2015 Ot V42.7 LIVE R TRANSPLANT STATUS 10/27/2015 Ot V58.69 OTH MED,LT,CURRENT USE 10/27/2015 Ot 573.8 LIVE R DISORDERS NEC 10/27/2015 Ot 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 10/27/2015 Ot 789.09 ABD OMINAL PAIN, OTHER SPECIFIED SITE 10/27/2015 PRISCILA CHANDLER MD Ot 285.9 ANEMIA NOS 10/27/2015 PRISCILA CHANDLER MD Ot 572.8 OTH SEQUELA, [facility] [place] DIS 10/27/2015 PRISCILA CHANDLER MD Ot 585.9 CHRONIC KIDNEY DISEASE, UNSPECIFIED 10/27/2015 EDUARDO PALACIO Ot 572.8 OTH SEQUELA, [facility] [place] DIS 10/27/2015 EDUARDO PALACIO Ot 585.9 CHRONIC KIDNEY DISEASE, UNSPECIFIED 10/27/2015 PRISCILA CHANDLER MD Ot 285.9 ANEMIA NOS 10/27/2015 PRISCILA CHANDLER MD Ot 572.8 OTH SEQUELA, CHR LILIANA DIS 10/27/2015 PRISCILA CHANDLER MD Ot 585.9 CHRONIC KIDNEY DISEASE, UNSPECIFIED 10/27/2015 EDUARDO PALACIO Ot 572.8 OTH SEQUELA, CHR LILIANA DIS 10/27/2015 TEREZA BRADEN MD Ot 572.8 OTH SEQUELA, CHR LILIANA DIS 10/27/2015 TEREZA BRADEN MD Ot 585.3 CHRONIC KIDNEY DISEASE, STAGE III (MODER 10/27/2015 RAMESH STARR, PRISCILA Vieira Ot 268.9 VITAMIN D DEFICIENCY NOS 10/27/2015 RAMESH STARR, PRISCILA Vieira Ot V42.7 LIVER TRANSPLANT STATUS 10/27/2015 MARIA LUISA STARR, MICHAEL Joel Ot 780.7 9 OTH MALAISE FATIGUE 10/27/2015 PRISCILA CHANDLER MD Ot 585.3 CHRONIC KIDNEY DISEASE, STAGE III (MODER 10/27/2015 MARIA LUISA STARR, MICHAEL Joel Ot 719.0 6 JOINT EFFUSION-L/LEG 10/27/2015 MARIA LUISA STARR, MICHAEL Joel Ot 719.4 7 JOINT PAIN-ANKLE 10/27/2015 TEREZA BRADEN MD Ot V42.7 LIVER TRANSPLANT STATUS 10/27/2015 TEREZA BRADEN MD Ot V58.4 4 AFTERCARE FOLLOWING ORGAN TRANSPLANT 10/27/2015 RAMESH STARR, PRISCILA Vieira Ot 268.9 VITAMIN D DEFICIENCY NOS 10/27/2015 RAMESH STARR, PRISCILA Vieira Ot 276.8 HYPOPOTASSEMIA 10/27/2015 PRISCILA CHANDLER MD Ot 585.3 CHRONIC KIDNEY DISEASE, STAGE III (MODER 10/27/2015 RAMESH STARR, PRISCILA Vieira Ot 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 9 CARDIAC DYSRHYTHMIA NOS 10/27/2015 LOYDA DOMINGUEZ MD Ot 585. 9 CHRONIC KIDNEY DISEASE, UNSPECIFIED 10/27/2015 LOYDA DOMINGUEZ MD Ot V15. 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, UNSPECIFIED 10/27/2015 Ot 790.29 OTH ER ABNORMAL GLUCOSE 10/27/2015 Ot V15.81 HX OF PAST NONCOMPLIANCE 10/27/2015 PRISCILA CHANDLER MD Ot 268.9 VITAMIN D DEFICIENCY NOS 10/27/2015 PRISCILA CHANDLER MD Ot 275.2 DIS MAGNESIUM METABOLISM 10/27/2015 PRISCILA CHANDLER MD Ot 585.3 CHRONIC KIDNEY DISEASE, STAGE III (MODER 10/27/2015 PRISCILA CHANDLER MD Ot 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 10/27/2015 PRISCILA CHANDLER MD Ot 268.9 VITAMIN D DEFICIENCY NOS 10/27/2015 PRISCILA CHANDLER MD Ot 275.2 DIS MAGNESIUM METABOLISM 10/27/2015 PRISCILA CHANDLER MD Ot 585.3 CHRONIC KIDNEY DISEASE, STAGE III (MODER 10/27/2015 Ot 338.29 OTH ER CHRONIC PAIN 10/27/2015 Ot 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 10/27/2015 Ot 729.82 MONOTYPE CASTER MP IN LIMB 10/27/2015 Ot V58.69 OTH MED,LT,CURRENT USE 10/27/2015 Ot 268.9 MEAGAN MIN D DEFICIENCY NOS 10/27/2015 Ot 275.2 DIS MAGNESIUM METABOLISM 10/27/2015 Ot 403.90 HYP TNSV CHR KID DIS, UNSPEC, W CHR KD ST 10/27/2015 Ot 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, STAGE III (MODER 10/27/2015 MICHAEL GLASS MD Ot 729.8 2 CRAMP IN LIMB 10/27/2015 MICHAEL GLASS MD Ot 780.6 0 FEVER, UNSPECIFIED 10/27/2015 MICHAEL GLASS MD Ot V58.6 9 OTH MED,LT,CURRENT USE 10/27/2015 TEREZA BRADEN MD Ot 571.5 CIRRHOSIS OF LIVER NOS 10/27/2015 TEREZA BRADEN MD Ot V42.7 LIVER TRANSPLANT STATUS 10/27/2015 MICHAEL GLASS MD Ot 573.9 LIVER DISORDER NOS 10/27/2015 MICHAEL GLASS MD Ot 780.6 0 FEVER, UNSPECIFIED 10/27/2015 MICHAEL GLASS MD Ot V42.7 LIVER TRANSPLANT STATUS 10/27/2015 EDUARDO PALACIO Ot 268.9 VITAMIN D DEFICIENCY NOS 10/27/2015 EDUARDO PALACIO Ot 272.4 HYPERLIPIDEMIA NEC/NOS 10/27/2015 EDUARDO PALACIO Ot V42.7 LIVER TRANSPLANT STATUS 10/27/2015 EDUARDO PALACIO Ot V58.69 OTH MED,LT,CURRENT USE 10/27/2015 TEREZA BRADEN MD Ot K72.9 0 HEPATIC FAILURE, UNSPECIFIED WITHOUT COM 10/27/2015 TEREZA BRADEN MD Ot N18.3 CHRONIC KIDNEY DISEASE, STAGE 3 (MODERAT 10/27/2015 TEREZA BRADEN MD Ot R79.8 9 OTHER SPECIFIED ABNORMAL FINDINGS OF BLO 10/27/2015 EDUARDO PALACIO Ot Z51.81 ENCOUNTER FOR THERAPEUTIC DRUG LEVEL MON 10/27/2015 EDUARDO PALACIO Ot Z79.899 OTHER CORRECTION (CURRENT) DRUG THERAPY 10/27/2015 EDUARDO PALACIO Ot Z94.4 LIVER TRANSPLANT STATUS 10/27/2015 MICHAEL GLASS MD Ot F17.2 10 NICOTINE DEPENDENCE, CIGARETTES, UNCOMPL 10/27/2015 MICHAEL GLASS MD Ot R05 COUGH 10/27/2015 MICHAEL GLASS MD Ot R10.9 UNSPECIFIED ABDOMINAL PAIN 10/27/2015 MICHAEL GLASS MD Ot R91.1 SOLITARY PULMONARY NODULE 10/27/2015 MARJAN STANLEY DO Ot 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 9 CHRONIC OBSTRUCTIVE PULMONARY DISEASE, U 11/01/2015 KIMBERLEY HILL DO Ot R91. 8 OTHER NONSPECIFIC ABNORMAL FINDING OF BRENT 11/01/2015 KIMBERLEY HILL DO Ot J44. 9 CHRONIC OBSTRUCTIVE PULMONARY DISEASE, U 11/01/2015 KIMBERLEY HILL DO Ot R91. 8 OTHER NONSPECIFIC ABNORMAL FINDING OF BRENT 11/02/2015 MICHAEL GLASS MD Ot K72.9 0 HEPATIC FAILURE, UNSPECIFIED WITHOUT COM 11/03/2015 MICHAEL GLASS MD Ot K72.9 0 HEPATIC FAILURE, UNSPECIFIED WITHOUT COM 11/10/2015 RAMESH STARR, PRISCILA Vieira Ot E55.9 VITAMIN D DEFICIENCY, UNSPECIFIED 11/10/2015 RAMESH STARR, PRISCILA Vieira Ot E83.42 HYPOMAGNESEMIA 11/10/2015 RAMESH STARR, PRISCILA Vieira Ot K72.90 HEPATIC FAILURE, UNSPECIFIED WITHOUT COM 11/10/2015 RAMESH STARR, PRISCILA B Ot N18.3 CHRONIC KIDNEY DISEASE, STAGE 3 (MODERAT 11/10/2015 KIMBERLEY HILL DO Ot J44. 9 CHRONIC OBSTRUCTIVE PULMONARY DISEASE, U 11/10/2015 KIMBERLEY HILL DO Ot R91. 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 11/23/2015 EDUARDO PALACIO Ot Z94.4 LIVER TRANSPLANT STATUS 11/23/2015 MICHAEL GLASS MD Ot K72.9 0 HEPATIC FAILURE, UNSPECIFIED WITHOUT COM 12/01/2015 RAMESH STARR, PRISCILA Vieira Ot E55.9 VITAMIN D DEFICIENCY, UNSPECIFIED 12/01/2015 RAMESH STARR, PRISCILA Vieira Ot E83.42 HYPOMAGNESEMIA 12/01/2015 RAMESH STARR, PRISCILA Vieira Ot K72.90 HEPATIC FAILURE, UNSPECIFIED WITHOUT COM 12/01/2015 RAMESH STARR, PRISCILA Vieira Ot N18.3 CHRONIC KIDNEY DISEASE, STAGE 3 (MODERAT 12/26/2015 TEREZA BRADEN MD Ot K72.9 0 HEPATIC FAILURE, UNSPECIFIED WITHOUT COM 12/26/2015 TEREZA BRADEN MD Ot N18.3 CHRONIC KIDNEY DISEASE, STAGE 3 (MODERAT 12/26/2015 TEREZA BRADEN MD Ot R79.8 9 OTHER SPECIFIED ABNORMAL FINDINGS OF BLO 12/26/2015 EDUARDO PALACIO Ot Z51.81 ENCOUNTER FOR THERAPEUTIC DRUG LEVEL MON 12/26/2015 EDUARDO PALACIO Ot Z79.899 OTHER CORRECTION (CURRENT) DRUG THERAPY 12/26/2015 EDUARDO PALACIO Ot Z94.4 LIVER TRANSPLANT STATUS 12/27/2015 TEREZA BRADEN MD Ot K74.6 0 UNSPECIFIED CIRRHOSIS OF LIVER 01/21/2016 TEREZA BRADEN MD Ot K72.9 0 HEPATIC FAILURE, UNSPECIFIED WITHOUT COM 01/21/2016 TEREZA BRADEN MD Ot N18.3 CHRONIC KIDNEY DISEASE, STAGE 3 (MODERAT 01/21/2016 TEREZA BRADEN MD Ot R79.8 9 OTHER SPECIFIED ABNORMAL FINDINGS OF BLO 01/24/2016 TEREZA BRADEN MD Ot K72.9 0 HEPATIC FAILURE, UNSPECIFIED WITHOUT COM 01/24/2016 TEREZA BRADEN MD Ot N18.3 CHRONIC KIDNEY DISEASE, STAGE 3 (MODERAT 01/24/2016 TEREZA BRADEN MD Ot R79.8 9 OTHER SPECIFIED ABNORMAL FINDINGS OF BLO 01/31/2016 MICHAEL GLASS MD Ot K72.9 0 HEPATIC FAILURE, UNSPECIFIED WITHOUT COM 02/01/2016 TEREZA BRADEN MD Ot K72.9 0 HEPATIC FAILURE, UNSPECIFIED WITHOUT COM 02/01/2016 TEREZA BRADEN MD Ot N18.3 CHRONIC KIDNEY DISEASE, STAGE 3 (MODERAT 02/01/2016 TEREZA BRADEN MD Ot R79.8 9 OTHER SPECIFIED ABNORMAL FINDINGS OF BLO 03/17/2016 TEREZA BRADEN MD Ot K72.9 0 HEPATIC FAILURE, UNSPECIFIED WITHOUT COM 03/17/2016 TEREZA BRADEN MD, Ot N18.3 CHRONIC KIDNEY DISEASE, STAGE 3 (MODERAT 03/17/2016 TEREZA BRADEN MD Ot R79.8 9 OTHER SPECIFIED ABNORMAL FINDINGS OF BLO 04/20/2016 TEREZA BRADEN MD Ot K72.9 0 HEPATIC FAILURE, UNSPECIFIED WITHOUT COM 04/20/2016 TEREZA BRADEN MD Ot N18.3 CHRONIC KIDNEY DISEASE, STAGE 3 (MODERAT 04/20/2016 TEREZA BRADEN MD Ot R79.8 9 OTHER SPECIFIED ABNORMAL FINDINGS OF BLO 04/21/2016 TEREZA BRADEN MD Ot K72.9 0 HEPATIC FAILURE, UNSPECIFIED WITHOUT COM 04/21/2016 TEREZA BRADEN MD Ot N18.3 CHRONIC KIDNEY DISEASE, STAGE 3 (MODERAT 04/21/2016 TEREZA BRADEN MD Ot R79.8 9 OTHER SPECIFIED ABNORMAL FINDINGS OF BLO 05/24/2016 PRISCILA CHANDLER MD Ot E55.9 VITAMIN D DEFICIENCY, UNSPECIFIED 05/24/2016 PRISCILA CHANDLER MD B Ot E83.42 HYPOMAGNESEMIA 05/24/2016 PRISCILA CHANDLER MD B Ot K72.90 HEPATIC FAILURE, UNSPECIFIED WITHOUT COM 05/24/2016 PRISCILA CHANDLER MD B Ot K74.60 UNSPECIFIED CIRRHOSIS OF LIVER 05/24/2016 PRISCILA CHANDLER MD Ot N18.3 CHRONIC KIDNEY DISEASE, STAGE 3 (MODERAT 05/24/2016 PRISCILA CHANDLER MD B Ot 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 O 05/24/2016 PRISCILA CHANDLER MD B Ot R79.89 OTHER SPECIFIED ABNORMAL FINDINGS OF BLO 05/25/2016 TEREZA BRADEN MD Ot K74.6 0 UNSPECIFIED CIRRHOSIS OF LIVER 06/06/2016 TEREZA BRADEN MD Ot K74.6 0 UNSPECIFIED CIRRHOSIS OF LIVER 06/07/2016 TEREZA BRADEN MD Ot K72.9 0 HEPATIC FAILURE, UNSPECIFIED WITHOUT COM 06/07/2016 TEREZA BRADEN MD Ot N18.3 CHRONIC KIDNEY DISEASE, STAGE 3 (MODERAT 06/07/2016 ASIYA STARR, TEREZA Mathew Ot R79.8 9 OTHER SPECIFIED ABNORMAL FINDINGS OF BLO 06/26/2016 Ot V42.7 LIVE R TRANSPLANT STATUS 06/26/2016 Ot V58.44 AFT ERCARE FOLLOWING ORGAN TRANSPLANT 06/26/2016 Ot V58.69 OTH MED,LT,CURRENT USE 06/26/2016 Ot 572.8 OTH SEQUELA, CHR LILIANA DIS 06/26/2016 Ot 572.8 OTH SEQUELA, CHR LILIANA DIS 06/26/2016 Ot 572.8 OTH SEQUELA, CHR LILIANA DIS 06/26/2016 Ot 572.8 OTH SEQUELA, CHR LILIANA DIS 06/26/2016 Ot 572.8 OTH SEQUELA, [facility] LILIANA DIS 06/26/2016 Ot 572.8 OTH SEQUELA, [facility] LILIANA DIS 06/26/2016 Ot 572.8 OTH SEQUELA, [facility] LILIANA DIS 06/26/2016 Ot 572.8 OTH SEQUELA, [facility] LILIANA DIS 06/26/2016 Ot 572.8 OTH SEQUELA, [facility] LILIANA DIS 06/26/2016 Ot 285.9 ANEM IA NOS 06/26/2016 Ot 572.8 OTH SEQUELA, CHR LILIANA DIS 06/26/2016 Ot 585.6 END STAGE RENAL DISEASE 06/26/2016 Ot V42.7 LIVE R TRANSPLANT STATUS 06/26/2016 Ot 572.8 OTH SEQUELA, [facility] LILIANA DIS 06/26/2016 Ot 572.8 OTH SEQUELA, [facility] LILIANA DIS 06/26/2016 Ot 572.8 OTH SEQUELA, [facility] LILIANA DIS 06/26/2016 Ot 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, UNSPECIFIED 06/26/2016 Ot 572.8 OTH SEQUELA, CHR LILIANA DIS 06/26/2016 Ot 572.8 OTH SEQUELA, CHR LILIANA DIS 06/26/2016 Ot 572.8 OTH SEQUELA, [facility] LILIANA DIS 06/26/2016 Ot 572.8 OTH SEQUELA, [facility] LILIANA DIS 06/26/2016 Ot 276.8 HYPO POTASSEMIA 06/26/2016 Ot 572.8 OTH SEQUELA, [facility] LILIANA DIS 06/26/2016 Ot 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, STAGE III (MODER 06/26/2016 Ot 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 06/26/2016 Ot 571.5 CIRR HOSIS OF LIVER NOS 06/26/2016 Ot V42.7 LIVE R TRANSPLANT STATUS 06/26/2016 Ot 572.8 OTH SEQUELA, CHR LILIANA DIS 06/26/2016 Ot 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, STAGE III (MODER 06/26/2016 Ot 285.9 ANEM IA NOS 06/26/2016 Ot 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, STAGE III (MODER 06/26/2016 Ot 572.8 OTH SEQUELA, CHR LILIANA DIS 06/26/2016 Ot 572.8 OTH SEQUELA, CHR LILIANA DIS 06/26/2016 Ot 572.8 OTH SEQUELA, CHR LILIANA DIS 06/26/2016 Ot 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, STAGE III (MODER 06/26/2016 Ot 572.8 OTH SEQUELA, CHR LILIANA DIS 06/26/2016 Ot 572.8 OTH SEQUELA, CHR LILIANA DIS 06/26/2016 Ot 070.54 CHR ONIC HEPATITIS C W/O HEPATIC COMA 06/26/2016 Ot 285.9 ANEM IA NOS 06/26/2016 Ot 491.20 OBS TR CHRONIC BRONCHITIS, W/O EXACERBATI 06/26/2016 Ot 572.8 OTH SEQUELA, CHR LILIANA DIS 06/26/2016 Ot 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, UNSPECIFIED 06/26/2016 Ot V42.7 LIVE R TRANSPLANT STATUS 06/26/2016 Ot 572.8 OTH SEQUELA, CHR LILIANA DIS 06/26/2016 Ot 572.8 OTH SEQUELA, CHR LILIANA DIS 06/26/2016 Ot 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, UNSPECIFIED 06/26/2016 Ot 572.8 OTH SEQUELA, CHR LILIANA DIS 06/26/2016 Ot 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, UNSPECIFIED 06/26/2016 Ot 572.8 OTH SEQUELA, CHR LILIANA DIS 06/26/2016 Ot 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, STAGE III (MODER 06/26/2016 Ot 572.8 OTH SEQUELA, CHR LILIANA DIS 06/26/2016 Ot 572.8 OTH SEQUELA, CHR LILIANA DIS 06/26/2016 Ot 285.9 ANEM IA NOS 06/26/2016 Ot 496 CHR AI RWAY OBSTRUCT NEC 06/26/2016 Ot 572.8 OTH SEQUELA, CHR LILIANA DIS 06/26/2016 Ot 607.84 IMP OTENCE, ORGANIC ORIGN 06/26/2016 Ot 780.79 OTH MALAISE FATIGUE 06/26/2016 Ot V42.7 LIVE R TRANSPLANT STATUS 06/26/2016 Ot V58.69 OTH MED,LT,CURRENT USE 06/26/2016 Ot 572.8 OTH SEQUELA, CHR LILIANA DIS 06/26/2016 Ot 796.4 ABN CLINICAL FINDING NEC 06/26/2016 Ot V42.7 LIVE R TRANSPLANT STATUS 06/26/2016 Ot 572.8 OTH SEQUELA, CHR LILIANA DIS 06/26/2016 Ot 572.8 OTH SEQUELA, CHR LILIANA DIS 06/26/2016 Ot 572.8 OTH SEQUELA, CHR LILIANA DIS 06/26/2016 Ot 070.54 CHR ONIC HEPATITIS C W/O HEPATIC COMA 06/26/2016 Ot 572.8 OTH SEQUELA, CHR LILIANA DIS 06/26/2016 Ot 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, STAGE III (MODER 06/26/2016 Ot 572.8 OTH SEQUELA, CHR LILIANA DIS 06/26/2016 Ot 572.8 OTH SEQUELA, CHR LILIANA DIS 06/26/2016 Ot 572.8 OTH SEQUELA, CHR LILIANA DIS 06/26/2016 Ot 572.8 OTH SEQUELA, CHR LILIANA DIS 06/26/2016 Ot 572.8 OTH SEQUELA, CHR LILIANA DIS 06/26/2016 Ot 572.8 OTH SEQUELA, CHR LILIANA DIS 06/26/2016 Ot V42.7 LIVE R TRANSPLANT STATUS 06/26/2016 Ot 268.9 MEAGAN MIN D DEFICIENCY NOS 06/26/2016 Ot 281.1 B12 DEFIC ANEMIA NEC 06/26/2016 Ot 285.9 ANEM IA NOS 06/26/2016 Ot 491.21 OBS TR CHRONIC BRONCHITIS, W (ACUTE) EXAC 06/26/2016 Ot 572.8 OTH SEQUELA, CHR LILIANA DIS 06/26/2016 Ot 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, STAGE III (MODER 06/26/2016 Ot V42.7 LIVE R TRANSPLANT STATUS 06/26/2016 Ot V58.69 OTH MED,LT,CURRENT USE 06/26/2016 Ot 573.8 LIVE R DISORDERS NEC 06/26/2016 Ot 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 06/26/2016 Ot 721.3 LUMB OSACRAL SPONDYLOSIS 06/26/2016 Ot V58.69 OTH MED,LT,CURRENT USE 06/26/2016 Ot 572.8 OTH SEQUELA, CHR LILIANA DIS 06/26/2016 Ot V42.7 LIVE R TRANSPLANT STATUS 06/26/2016 Ot 572.8 OTH SEQUELA, CHR LILIANA DIS 06/26/2016 Ot 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, STAGE III (MODER 06/26/2016 Ot 572.8 OTH SEQUELA, CHR LILIANA DIS 06/26/2016 Ot 572.8 OTH SEQUELA, CHR LILIANA DIS 06/26/2016 Ot 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, STAGE III (MODER 06/26/2016 Ot 572.8 OTH SEQUELA, CHR LILIANA DIS 06/26/2016 Ot 268.9 MEAGAN MIN D DEFICIENCY NOS 06/26/2016 Ot 275.2 DIS MAGNESIUM METABOLISM 06/26/2016 Ot 572.8 OTH SEQUELA, CHR LILIANA DIS 06/26/2016 Ot 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, STAGE III (MODER 06/26/2016 Ot V42.7 LIVE R TRANSPLANT STATUS 06/26/2016 Ot V58.69 OTH MED,LT,CURRENT USE 06/26/2016 Ot 573.8 LIVE R DISORDERS NEC 06/26/2016 Ot 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 06/26/2016 Ot 789.09 ABD OMINAL PAIN, OTHER SPECIFIED SITE 06/26/2016 RAMESH STARR, PRISCILA Vieira Ot 285.9 ANEMIA NOS 06/26/2016 RAMESH STARR, PRISCILA Vieira Ot 572.8 OTH SEQUELA, CHR LILIANA DIS 06/26/2016 RAMESH STARR, PRISCILA Vieira Ot 585.9 CHRONIC KIDNEY DISEASE, UNSPECIFIED 06/26/2016 EDUARDO PALACIO Ot 572.8 OTH SEQUELA, CHR LILIANA DIS 06/26/2016 EDUARDO PALACIO Ot 585.9 CHRONIC KIDNEY DISEASE, UNSPECIFIED 06/26/2016 RAMESH STARR, PRISCILA Vieira Ot 285.9 ANEMIA NOS 06/26/2016 PRISCILA CHANDLER MD Ot 572.8 OTH SEQUELA, CHR LILIANA DIS 06/26/2016 PRISCILA CHANDLER MD Ot 585.9 CHRONIC KIDNEY DISEASE, UNSPECIFIED 06/26/2016 EDUARDO PALACIO Ot 572.8 OTH SEQUELA, CHR LILIANA DIS 06/26/2016 TEREZA BRADEN MD Ot 572.8 OTH SEQUELA, CHR LILIANA DIS 06/26/2016 TEREZA BRADEN MD Ot 585.3 CHRONIC KIDNEY DISEASE, STAGE III (MODER 06/26/2016 RAMESH STARR, PRISCILA Vieira Ot 268.9 VITAMIN D DEFICIENCY NOS 06/26/2016 RAMESH STARR, PRISCILA Vieira Ot V42.7 LIVER TRANSPLANT STATUS 06/26/2016 MARIA LUISA STARR, MICHAEL Joel Ot 780.7 9 OTH MALAISE FATIGUE 06/26/2016 PRISCILA CHANDLER MD Ot 585.3 CHRONIC KIDNEY DISEASE, STAGE III (MODER 06/26/2016 MARIA LUISA STARR, MICHAEL Joel Ot 719.0 6 JOINT EFFUSION-L/LEG 06/26/2016 MARIA LUISA STARR, MICHAEL Joel Ot 719.4 7 JOINT PAIN-ANKLE 06/26/2016 TEREZA BRADEN MD Ot V42.7 LIVER TRANSPLANT STATUS 06/26/2016 TEREZA BRADEN MD Ot V58.4 4 AFTERCARE FOLLOWING ORGAN TRANSPLANT 06/26/2016 PRISCILA CHANDLER MD Ot 268.9 VITAMIN D DEFICIENCY NOS 06/26/2016 PRISCILA CHANDLER MD Ot 276.8 HYPOPOTASSEMIA 06/26/2016 PRISCILA CHANDLER MD Ot 585.3 CHRONIC KIDNEY DISEASE, STAGE III (MODER 06/26/2016 PRISCILA CHANDLER MD Ot 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 9 CARDIAC DYSRHYTHMIA NOS 06/26/2016 LOYDA DOMINGUEZ MD Ot 585. 9 CHRONIC KIDNEY DISEASE, UNSPECIFIED 06/26/2016 LOYDA DOMINGUEZ MD Ot V15. 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, UNSPECIFIED 06/26/2016 Ot 790.29 OTH ER ABNORMAL GLUCOSE 06/26/2016 Ot V15.81 HX OF PAST NONCOMPLIANCE 06/26/2016 PRISCILA CHANDLER MD Ot 268.9 VITAMIN D DEFICIENCY NOS 06/26/2016 PRISCILA CHANDLER MD Ot 275.2 DIS MAGNESIUM METABOLISM 06/26/2016 PRISCILA CHANDLER MD Ot 585.3 CHRONIC KIDNEY DISEASE, STAGE III (MODER 06/26/2016 PRISCILA CHANDLER MD Ot 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 06/26/2016 PRISCILA CHANDLER MD Ot 268.9 VITAMIN D DEFICIENCY NOS 06/26/2016 PRISCILA CHANDLER MD Ot 275.2 DIS MAGNESIUM METABOLISM 06/26/2016 PRISCILA CHANDLER MD Ot 585.3 CHRONIC KIDNEY DISEASE, STAGE III (MODER 06/26/2016 Ot 338.29 OTH ER CHRONIC PAIN 06/26/2016 Ot 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 06/26/2016 Ot 729.82 MONOTYPE CASTER MP IN LIMB 06/26/2016 Ot V58.69 OTH MED,LT,CURRENT USE 06/26/2016 Ot 268.9 MEAGAN MIN D DEFICIENCY NOS 06/26/2016 Ot 275.2 DIS MAGNESIUM METABOLISM 06/26/2016 Ot 403.90 HYP TNSV CHR KID DIS, UNSPEC, W CHR KD ST 06/26/2016 Ot 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, STAGE III (MODER 06/26/2016 MARIA LUISA STARR, MICHAEL Joel Ot 729.8 2 CRAMP IN LIMB 06/26/2016 MARIA LUISA STARR, MICHAEL Joel Ot 780.6 0 FEVER, UNSPECIFIED 06/26/2016 MICHAEL GLASS MD Ot V58.6 9 OTH MED,LT,CURRENT USE 06/26/2016 TEREZA BRADEN MD Ot 571.5 CIRRHOSIS OF LIVER NOS 06/26/2016 TEREZA BRADEN MD Ot V42.7 LIVER TRANSPLANT STATUS 06/26/2016 MICHAEL GLASS MD Ot 573.9 LIVER DISORDER NOS 06/26/2016 MICHAEL GLASS MD Ot 780.6 0 FEVER, UNSPECIFIED 06/26/2016 MICHAEL GLASS MD Ot V42.7 LIVER TRANSPLANT STATUS 06/26/2016 EDUARDO PALACIO Ot 268.9 VITAMIN D DEFICIENCY NOS 06/26/2016 EDUARDO PALACIO Ot 272.4 HYPERLIPIDEMIA NEC/NOS 06/26/2016 EDUARDO PALACIO Ot V42.7 LIVER TRANSPLANT STATUS 06/26/2016 EDUARDO PALACIO Ot V58.69 OTH MED,LT,CURRENT USE 06/26/2016 MARIA LUISA STARR, MICHAEL Joel Ot F17.2 10 NICOTINE DEPENDENCE, CIGARETTES, UNCOMPL 06/26/2016 MARIA LUISA STARR, MICHAEL Joel Ot R05 COUGH 06/26/2016 MICHAEL GLASS MD Ot R10.9 UNSPECIFIED ABDOMINAL PAIN 06/26/2016 MICHAEL GLASS MD Ot R91.1 SOLITARY PULMONARY NODULE 06/26/2016 MARJAN STANLEY DO Ot B49 UNSPECIFIED MYCOSIS 06/26/2016 MARJAN STANLEY DO Ot R91.8 OTHER NONSPECIFIC ABNORMAL FINDING OF BRENT 06/26/2016 MARJAN STANLEY DO Ot Z94.4 LIVER TRANSPLANT STATUS 06/26/2016 KIMBERLEY HILL DO Ot J44. 9 CHRONIC OBSTRUCTIVE PULMONARY DISEASE, U 06/26/2016 KIMBERLEY HILL DO Ot R91. 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 06/26/2016 Ot Z94.4 LIVE R TRANSPLANT STATUS 06/26/2016 MARIA LUISA STARR, MICHAEL Joel Ot K72.9 0 HEPATIC FAILURE, UNSPECIFIED WITHOUT COM 06/26/2016 ASIYA STARR, TEREZA Mathew Ot K74.6 0 UNSPECIFIED CIRRHOSIS OF LIVER 06/28/2016 EMELIA LOZOYA [employer] SPECIALIST Ot F17.200 NICOTINE DEPENDENCE, UNSPECIFIED, UNCOMP 06/28/2016 EMELIA LOZOYA APRN Ot J44.9 CHRONIC OBSTRUCTIVE PULMONARY DISEASE, U 07/12/2016 EMELIA LOZOYA APRN Ot F17.200 NICOTINE DEPENDENCE, UNSPECIFIED, UNCOMP 07/12/2016 EMELIA LOZOYA APRN Ot J44.9 CHRONIC OBSTRUCTIVE PULMONARY DISEASE, U 07/31/2016 Ot V42.7 LIVE R TRANSPLANT STATUS 07/31/2016 Ot V58.44 AFT ERCARE FOLLOWING ORGAN TRANSPLANT 07/31/2016 Ot V58.69 OTH MED,LT,CURRENT USE 07/31/2016 Ot 572.8 OTH SEQUELA, [facility] [place] DIS 07/31/2016 Ot 572.8 OTH SEQUELA, [facility] [place] DIS 07/31/2016 Ot 572.8 OTH SEQUELA, [facility] [place] DIS 07/31/2016 Ot 572.8 OTH SEQUELA, [facility] [place] DIS 07/31/2016 Ot 572.8 OTH SEQUELA, [facility] [place] DIS 07/31/2016 Ot 572.8 OTH SEQUELA, [facility] [place] DIS 07/31/2016 Ot 572.8 OTH SEQUELA, [facility] [place] DIS 07/31/2016 Ot 285.9 ANEM IA NOS 07/31/2016 Ot 572.8 OTH SEQUELA, [facility] [place] DIS 07/31/2016 Ot 585.6 END STAGE RENAL DISEASE 07/31/2016 Ot V42.7 LIVE R TRANSPLANT STATUS 07/31/2016 Ot 572.8 OTH SEQUELA, [facility] [place] DIS 07/31/2016 Ot 572.8 OTH SEQUELA, [facility] [place] DIS 07/31/2016 Ot 572.8 OTH SEQUELA, [facility]R [place] DIS 07/31/2016 Ot 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, UNSPECIFIED 07/31/2016 Ot 572.8 OTH SEQUELA, CHR [place] DIS 07/31/2016 Ot 572.8 OTH SEQUELA, CHR [place] DIS 07/31/2016 Ot 572.8 OTH SEQUELA, [facility] [place] DIS 07/31/2016 Ot 572.8 OTH SEQUELA, CHR [place] DIS 07/31/2016 Ot 276.8 HYPO POTASSEMIA 07/31/2016 Ot 572.8 OTH SEQUELA, CHR [place] DIS 07/31/2016 Ot 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, STAGE III (MODER 07/31/2016 Ot 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 07/31/2016 Ot 571.5 CIRR HOSIS OF LIVER NOS 07/31/2016 Ot V42.7 LIVE R TRANSPLANT STATUS 07/31/2016 Ot 572.8 OTH SEQUELA, [facility]R [place] DIS 07/31/2016 Ot 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, STAGE III (MODER 07/31/2016 Ot 285.9 ANEM IA NOS 07/31/2016 Ot 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, STAGE III (MODER 07/31/2016 Ot 572.8 OTH SEQUELA, CHR [place] DIS 07/31/2016 Ot 572.8 OTH SEQUELA, CHR [place] DIS 07/31/2016 Ot 572.8 OTH SEQUELA, CHR LILIANA DIS 07/31/2016 Ot 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, STAGE III (MODER 07/31/2016 Ot 572.8 OTH SEQUELA, CHR LILIANA DIS 07/31/2016 Ot 572.8 OTH SEQUELA, CHR LILIANA DIS 07/31/2016 Ot 070.54 CHR ONIC HEPATITIS C W/O HEPATIC COMA 07/31/2016 Ot 285.9 ANEM IA NOS 07/31/2016 Ot 491.20 OBS TR CHRONIC BRONCHITIS, W/O EXACERBATI 07/31/2016 Ot 572.8 OTH SEQUELA, CHR LILIANA DIS 07/31/2016 Ot 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, UNSPECIFIED 07/31/2016 Ot V42.7 LIVE R TRANSPLANT STATUS 07/31/2016 Ot 572.8 OTH SEQUELA, CHR LILIANA DIS 07/31/2016 Ot 572.8 OTH SEQUELA, CHR LILIANA DIS 07/31/2016 Ot 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, UNSPECIFIED 07/31/2016 Ot 572.8 OTH SEQUELA, CHR LILIANA DIS 07/31/2016 Ot 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, UNSPECIFIED 07/31/2016 Ot 572.8 OTH SEQUELA, CHR LILIANA DIS 07/31/2016 Ot 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, STAGE III (MODER 07/31/2016 Ot 572.8 OTH SEQUELA, CHR LILIANA DIS 07/31/2016 Ot 572.8 OTH SEQUELA, CHR LILIANA DIS 07/31/2016 Ot 285.9 ANEM IA NOS 07/31/2016 Ot 496 CHR AI RWAY OBSTRUCT NEC 07/31/2016 Ot 572.8 OTH SEQUELA, CHR LILIANA DIS 07/31/2016 Ot 607.84 IMP OTENCE, ORGANIC ORIGN 07/31/2016 Ot 780.79 OTH MALAISE FATIGUE 07/31/2016 Ot V42.7 LIVE R TRANSPLANT STATUS 07/31/2016 Ot V58.69 OTH MED,LT,CURRENT USE 07/31/2016 Ot 572.8 OTH SEQUELA, CHR LILIANA DIS 07/31/2016 Ot 796.4 ABN CLINICAL FINDING NEC 07/31/2016 Ot V42.7 LIVE R TRANSPLANT STATUS 07/31/2016 Ot 572.8 OTH SEQUELA, CHR LILIANA DIS 07/31/2016 Ot 572.8 OTH SEQUELA, CHR LILIANA DIS 07/31/2016 Ot 572.8 OTH SEQUELA, CHR LILIANA DIS 07/31/2016 Ot 070.54 CHR ONIC HEPATITIS C W/O HEPATIC COMA 07/31/2016 Ot 572.8 OTH SEQUELA, CHR LILIANA DIS 07/31/2016 Ot 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, STAGE III (MODER 07/31/2016 Ot 572.8 OTH SEQUELA, CHR LILIANA DIS 07/31/2016 Ot 572.8 OTH SEQUELA, CHR LILIANA DIS 07/31/2016 Ot 572.8 OTH SEQUELA, CHR LILIANA DIS 07/31/2016 Ot 572.8 OTH SEQUELA, CHR LILIANA DIS 07/31/2016 Ot 572.8 OTH SEQUELA, CHR LILIANA DIS 07/31/2016 Ot 572.8 OTH SEQUELA, CHR LILIANA DIS 07/31/2016 Ot V42.7 LIVE R TRANSPLANT STATUS 07/31/2016 Ot 268.9 MEAGAN MIN D DEFICIENCY NOS 07/31/2016 Ot 281.1 B12 DEFIC ANEMIA NEC 07/31/2016 Ot 285.9 ANEM IA NOS 07/31/2016 Ot 491.21 OBS TR CHRONIC BRONCHITIS, W (ACUTE) EXAC 07/31/2016 Ot 572.8 OTH SEQUELA, CHR LILIANA DIS 07/31/2016 Ot 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, STAGE III (MODER 07/31/2016 Ot V42.7 LIVE R TRANSPLANT STATUS 07/31/2016 Ot V58.69 OTH MED,LT,CURRENT USE 07/31/2016 Ot 573.8 LIVE R DISORDERS NEC 07/31/2016 Ot 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 07/31/2016 Ot 721.3 LUMB OSACRAL SPONDYLOSIS 07/31/2016 Ot V58.69 OTH MED,LT,CURRENT USE 07/31/2016 Ot 572.8 OTH SEQUELA, CHR LILIANA DIS 07/31/2016 Ot V42.7 LIVE R TRANSPLANT STATUS 07/31/2016 Ot 572.8 OTH SEQUELA, CHR LILIANA DIS 07/31/2016 Ot 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, STAGE III (MODER 07/31/2016 Ot 572.8 OTH SEQUELA, CHR LILIANA DIS 07/31/2016 Ot 572.8 OTH SEQUELA, CHR LILIANA DIS 07/31/2016 Ot 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, STAGE III (MODER 07/31/2016 Ot 572.8 OTH SEQUELA, CHR LILIANA DIS 07/31/2016 Ot 268.9 MEAGAN MIN D DEFICIENCY NOS 07/31/2016 Ot 275.2 DIS MAGNESIUM METABOLISM 07/31/2016 Ot 572.8 OTH SEQUELA, [facility] LILIANA DIS 07/31/2016 Ot 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, STAGE III (MODER 07/31/2016 Ot V42.7 LIVE R TRANSPLANT STATUS 07/31/2016 Ot V58.69 OTH MED,LT,CURRENT USE 07/31/2016 Ot 573.8 LIVE R DISORDERS NEC 07/31/2016 Ot 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 07/31/2016 Ot 789.09 ABD OMINAL PAIN, OTHER SPECIFIED SITE 07/31/2016 PRISCILA CHANDLER MD Ot 285.9 ANEMIA NOS 07/31/2016 RAMESH STARR, PRISCILA Vieira Ot 572.8 OTH SEQUELA, CHR LILIANA DIS 07/31/2016 PRISCILA CHANDLER MD Ot 585.9 CHRONIC KIDNEY DISEASE, UNSPECIFIED 07/31/2016 EDUARDO PALACIO Ot 572.8 OTH SEQUELA, CHR LILIANA DIS 07/31/2016 EDUARDO PALACIO Ot 585.9 CHRONIC KIDNEY DISEASE, UNSPECIFIED 07/31/2016 PRISCILA CHANDLER MD Ot 285.9 ANEMIA NOS 07/31/2016 PRISCILA CHANDLER MD Ot 572.8 OTH SEQUELA, CHR LILIANA DIS 07/31/2016 PRISCILA CHANDLER MD Ot 585.9 CHRONIC KIDNEY DISEASE, UNSPECIFIED 07/31/2016 EDUARDO PALACIO Ot 572.8 OTH SEQUELA, CHR LILIANA DIS 07/31/2016 TEREZA BRADEN MD Ot 572.8 OTH SEQUELA, CHR LILIANA DIS 07/31/2016 TEREZA BRADEN MD Ot 585.3 CHRONIC KIDNEY DISEASE, STAGE III (MODER 07/31/2016 PRISCILA CHANDLER MD Ot 268.9 VITAMIN D DEFICIENCY NOS 07/31/2016 PRISCILA CHANDLER MD Ot V42.7 LIVER TRANSPLANT STATUS 07/31/2016 MARIA LUISA STARR, MICHAEL Joel Ot 780.7 9 OTH MALAISE FATIGUE 07/31/2016 PRISCILA CHANDLER MD Ot 585.3 CHRONIC KIDNEY DISEASE, STAGE III (MODER 07/31/2016 MARIA LUISA STARR, MICHAEL Joel Ot 719.0 6 JOINT EFFUSION-L/LEG 07/31/2016 MICHAEL GLASS MD Ot 719.4 7 JOINT PAIN-ANKLE 07/31/2016 TEREZA BRADEN MD Ot V42.7 LIVER TRANSPLANT STATUS 07/31/2016 TEREZA BRADEN MD Ot V58.4 4 AFTERCARE FOLLOWING ORGAN TRANSPLANT 07/31/2016 PRISCILA CHANDLER MD Ot 268.9 VITAMIN D DEFICIENCY NOS 07/31/2016 PRISCILA CHANDLER MD Ot 276.8 HYPOPOTASSEMIA 07/31/2016 PRISCILA CHANDLER MD Ot 585.3 CHRONIC KIDNEY DISEASE, STAGE III (MODER 07/31/2016 PRISCILA CHANDLER MD Ot 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 9 CARDIAC DYSRHYTHMIA NOS 07/31/2016 LOYDA DOMINGUEZ MD Ot 585. 9 CHRONIC KIDNEY DISEASE, UNSPECIFIED 07/31/2016 LOYDA DOMINGUEZ MD Ot V15. 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 07/31/2016 Ot 427.9 CARD IAC DYSRHYTHMIA NOS 07/31/2016 Ot 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, UNSPECIFIED 07/31/2016 Ot 790.29 OTH ER ABNORMAL GLUCOSE 07/31/2016 Ot V15.81 HX OF PAST NONCOMPLIANCE 07/31/2016 PRISCILA CHANDLER MD Ot 268.9 VITAMIN D DEFICIENCY NOS 07/31/2016 PRISCILA CHANDLER MD Ot 275.2 DIS MAGNESIUM METABOLISM 07/31/2016 RAMESH STARR, PRISCILA Vieira Ot 585.3 CHRONIC KIDNEY DISEASE, STAGE III (MODER 07/31/2016 RAMESH STARR, PRISCILA Vieira Ot 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 07/31/2016 RAMESH STARR, PRISCILA Vieira Ot 268.9 VITAMIN D DEFICIENCY NOS 07/31/2016 RAMESH STARR, PRISCILA Vieira Ot 275.2 DIS MAGNESIUM METABOLISM 07/31/2016 PRISCILA CHANDLER MD Ot 585.3 CHRONIC KIDNEY DISEASE, STAGE III (MODER 07/31/2016 Ot 338.29 OTH ER CHRONIC PAIN 07/31/2016 Ot 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 07/31/2016 Ot 729.82 MONOTYPE CASTER MP IN LIMB 07/31/2016 Ot V58.69 OTH MED,LT,CURRENT USE 07/31/2016 Ot 268.9 MEAGAN MIN D DEFICIENCY NOS 07/31/2016 Ot 275.2 DIS MAGNESIUM METABOLISM 07/31/2016 Ot 403.90 HYP TNSV CHR KID DIS, UNSPEC, W CHR KD ST 07/31/2016 Ot 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, STAGE III (MODER 07/31/2016 MARIA LUISA STARR, MICHAEL Joel Ot 729.8 2 CRAMP IN LIMB 07/31/2016 MICHAEL GLASS MD Ot 780.6 0 FEVER, UNSPECIFIED 07/31/2016 MICHAEL GLASS MD Ot V58.6 9 OTH MED,LT,CURRENT USE 07/31/2016 TEREZA BRADEN MD Ot 571.5 CIRRHOSIS OF LIVER NOS 07/31/2016 TEREZA BRADEN MD Ot V42.7 LIVER TRANSPLANT STATUS 07/31/2016 MICHAEL GLASS MD Ot 573.9 LIVER DISORDER NOS 07/31/2016 MICHAEL GLASS MD Ot 780.6 0 FEVER, UNSPECIFIED 07/31/2016 MICHAEL GLASS MD Ot V42.7 LIVER TRANSPLANT STATUS 07/31/2016 EDUARDO PALACIO Ot 268.9 VITAMIN D DEFICIENCY NOS 07/31/2016 EDUARDO PALACIO Ot 272.4 HYPERLIPIDEMIA NEC/NOS 07/31/2016 EDUARDO PALACIO Ot V42.7 LIVER TRANSPLANT STATUS 07/31/2016 EDUARDO PALACIO Ot V58.69 OTH MED,LT,CURRENT USE 07/31/2016 MICHAEL GLASS MD Ot F17.2 10 NICOTINE DEPENDENCE, CIGARETTES, UNCOMPL 07/31/2016 MICHAEL GLASS MD Ot R05 COUGH 07/31/2016 MICHAEL GLASS MD Ot R10.9 UNSPECIFIED ABDOMINAL PAIN 07/31/2016 MICHAEL GLASS MD Ot R91.1 SOLITARY PULMONARY NODULE 07/31/2016 CHIO STANLEY DOI Ot B49 UNSPECIFIED MYCOSIS 07/31/2016 STANLEYMARJAN LIN DO Ot R91.8 OTHER NONSPECIFIC ABNORMAL FINDING OF BRENT 07/31/2016 MARJAN STANLEY DO Ot Z94.4 LIVER TRANSPLANT STATUS 07/31/2016 KIMBERLEY HILL DO Ot J44. 9 CHRONIC OBSTRUCTIVE PULMONARY DISEASE, U 07/31/2016 KIMBERLEY HILL DO Ot R91. 8 OTHER NONSPECIFIC ABNORMAL FINDING OF BRENT 07/31/2016 PRISCILA CHANDLER MD Ot E55.9 VITAMIN D DEFICIENCY, UNSPECIFIED 07/31/2016 PRISCILA CHANDLER MD Ot E83.42 HYPOMAGNESEMIA 07/31/2016 PRISCILA CHANDLER MD Ot K72.90 HEPATIC FAILURE, UNSPECIFIED WITHOUT COM 07/31/2016 PRISCILA CHANDLER MD Ot N18.3 CHRONIC KIDNEY DISEASE, STAGE 3 (MODERAT 07/31/2016 TEREZA BRADEN MD Ot K74.6 0 UNSPECIFIED CIRRHOSIS OF LIVER 07/31/2016 Ot Z51.81 ENC OUNTER FOR THERAPEUTIC DRUG LEVEL MON 07/31/2016 Ot Z79.899 OT HER CORRECTION (CURRENT) DRUG THERAPY 07/31/2016 Ot Z94.4 LIVE R TRANSPLANT STATUS 07/31/2016 MICHAEL GLASS MD Ot K72.9 0 HEPATIC FAILURE, UNSPECIFIED WITHOUT COM 07/31/2016 TEREZA BRADEN MD Ot K74.6 0 UNSPECIFIED CIRRHOSIS OF LIVER 07/31/2016 EMELIA LOZOYA APRN Ot F17.200 NICOTINE DEPENDENCE, UNSPECIFIED, UNCOMP 07/31/2016 EMELIA LOZOYA APRN Ot J44.9 CHRONIC OBSTRUCTIVE PULMONARY DISEASE, U 07/31/2016 TEREZA BRADEN MD Ot K74.6 0 UNSPECIFIED CIRRHOSIS OF LIVER 07/31/2016 TEREZA BRADEN MD Ot K74.6 0 UNSPECIFIED CIRRHOSIS OF LIVER 08/01/2016 EMELIA LOZOYA APRN Ot F17.200 NICOTINE DEPENDENCE, UNSPECIFIED, UNCOMP 08/01/2016 EMELIA LOZOYA APRN Ot J44.9 CHRONIC OBSTRUCTIVE PULMONARY DISEASE, U 08/01/2016 EMELIA LOZOYA APRN Ot R91.8 OTHER NONSPECIFIC ABNORMAL FINDING OF BRENT 08/08/2016 TEREZA BRADEN MD Ot K74.6 0 UNSPECIFIED CIRRHOSIS OF LIVER 08/17/2016 EMELIA LOZOYA APRN Ot F17.200 NICOTINE DEPENDENCE, UNSPECIFIED, UNCOMP 08/17/2016 EMELIA LOZOYA APRN Ot J44.9 CHRONIC OBSTRUCTIVE PULMONARY DISEASE, U 08/17/2016 EMELIA LOZOYA APRN Ot R91.8 OTHER NONSPECIFIC ABNORMAL FINDING OF BRENT 11/14/2016 TEREZA BRADEN MD Ot E83.4 2 HYPOMAGNESEMIA 11/27/2016 TEREZA BRADEN MD Ot E83.4 2 HYPOMAGNESEMIA 11/28/2016 Ot V42.7 LIVE R TRANSPLANT STATUS 11/28/2016 Ot V58.44 AFT ERCARE FOLLOWING ORGAN TRANSPLANT 11/28/2016 Ot V58.69 OTH MED,LT,CURRENT USE 11/28/2016 Ot 572.8 OTH SEQUELA, CHR LILIANA DIS 11/28/2016 Ot 572.8 OTH SEQUELA, CHR LILIANA DIS 11/28/2016 Ot 572.8 OTH SEQUELA, CHR LILIANA DIS 11/28/2016 Ot 572.8 OTH SEQUELA, CHR LILIANA DIS 11/28/2016 Ot 572.8 OTH SEQUELA, CHR LILIANA DIS 11/28/2016 Ot 276.8 HYPO POTASSEMIA 11/28/2016 Ot 572.8 OTH SEQUELA, CHR LILIANA DIS 11/28/2016 Ot 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, STAGE III (MODER 11/28/2016 Ot 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 11/28/2016 Ot 571.5 CIRR HOSIS OF LIVER NOS 11/28/2016 Ot V42.7 LIVE R TRANSPLANT STATUS 11/28/2016 Ot 572.8 OTH SEQUELA, CHR LILIANA DIS 11/28/2016 Ot 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, STAGE III (MODER 11/28/2016 Ot 285.9 ANEM IA NOS 11/28/2016 Ot 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, STAGE III (MODER 11/28/2016 Ot 572.8 OTH SEQUELA, CHR LILIANA DIS 11/28/2016 Ot 572.8 OTH SEQUELA, CHR LILIANA DIS 11/28/2016 Ot 572.8 OTH SEQUELA, CHR LILIANA DIS 11/28/2016 Ot 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, STAGE III (MODER 11/28/2016 Ot 572.8 OTH SEQUELA, CHR LILIANA DIS 11/28/2016 Ot 572.8 OTH SEQUELA, CHR LILIANA DIS 11/28/2016 Ot 070.54 CHR ONIC HEPATITIS C W/O HEPATIC COMA 11/28/2016 Ot 285.9 ANEM IA NOS 11/28/2016 Ot 491.20 OBS TR CHRONIC BRONCHITIS, W/O EXACERBATI 11/28/2016 Ot 572.8 OTH SEQUELA, CHR LILIANA DIS 11/28/2016 Ot 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, UNSPECIFIED 11/28/2016 Ot V42.7 LIVE R TRANSPLANT STATUS 11/28/2016 Ot 572.8 OTH SEQUELA, CHR LILIANA DIS 11/28/2016 Ot 572.8 OTH SEQUELA, CHR LILIANA DIS 11/28/2016 Ot 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, UNSPECIFIED 11/28/2016 Ot 572.8 OTH SEQUELA, CHR LILIANA DIS 11/28/2016 Ot 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, UNSPECIFIED 11/28/2016 Ot 572.8 OTH SEQUELA, CHR LILIANA DIS 11/28/2016 Ot 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, STAGE III (MODER 11/28/2016 Ot 572.8 OTH SEQUELA, CHR LILIANA DIS 11/28/2016 Ot 572.8 OTH SEQUELA, CHR LILIANA DIS 11/28/2016 Ot 285.9 ANEM IA NOS 11/28/2016 Ot 496 CHR AI RWAY OBSTRUCT NEC 11/28/2016 Ot 572.8 OTH SEQUELA, CHR LILIANA DIS 11/28/2016 Ot 607.84 IMP OTENCE, ORGANIC ORIGN 11/28/2016 Ot 780.79 OTH MALAISE FATIGUE 11/28/2016 Ot V42.7 LIVE R TRANSPLANT STATUS 11/28/2016 Ot V58.69 OTH MED,LT,CURRENT USE 11/28/2016 Ot 572.8 OTH SEQUELA, CHR LILIANA DIS 11/28/2016 Ot 796.4 ABN CLINICAL FINDING NEC 11/28/2016 Ot V42.7 LIVE R TRANSPLANT STATUS 11/28/2016 Ot 572.8 OTH SEQUELA, CHR LILIANA DIS 11/28/2016 Ot 572.8 OTH SEQUELA, CHR LILIANA DIS 11/28/2016 Ot 572.8 OTH SEQUELA, CHR LILIANA DIS 11/28/2016 Ot 070.54 CHR ONIC HEPATITIS C W/O HEPATIC COMA 11/28/2016 Ot 572.8 OTH SEQUELA, CHR LILIANA DIS 11/28/2016 Ot 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, STAGE III (MODER 11/28/2016 Ot 572.8 OTH SEQUELA, CHR LILIANA DIS 11/28/2016 Ot 572.8 OTH SEQUELA, CHR LILIANA DIS 11/28/2016 Ot 572.8 OTH SEQUELA, CHR LILIANA DIS 11/28/2016 Ot 572.8 OTH SEQUELA, CHR LILIANA DIS 11/28/2016 Ot 572.8 OTH SEQUELA, CHR LILIANA DIS 11/28/2016 Ot 572.8 OTH SEQUELA, CHR LILIANA DIS 11/28/2016 Ot V42.7 LIVE R TRANSPLANT STATUS 11/28/2016 Ot 268.9 MEAGAN MIN D DEFICIENCY NOS 11/28/2016 Ot 281.1 B12 DEFIC ANEMIA NEC 11/28/2016 Ot 285.9 ANEM IA NOS 11/28/2016 Ot 491.21 OBS TR CHRONIC BRONCHITIS, W (ACUTE) EXAC 11/28/2016 Ot 572.8 OTH SEQUELA, CHR LILIANA DIS 11/28/2016 Ot 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, STAGE III (MODER 11/28/2016 Ot V42.7 LIVE R TRANSPLANT STATUS 11/28/2016 Ot V58.69 OTH MED,LT,CURRENT USE 11/28/2016 Ot 573.8 LIVE R DISORDERS NEC 11/28/2016 Ot 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 11/28/2016 Ot 721.3 LUMB OSACRAL SPONDYLOSIS 11/28/2016 Ot V58.69 OTH MED,LT,CURRENT USE 11/28/2016 Ot 572.8 OTH SEQUELA, CHR LILIANA DIS 11/28/2016 Ot V42.7 LIVE R TRANSPLANT STATUS 11/28/2016 Ot 572.8 OTH SEQUELA, CHR LILIANA DIS 11/28/2016 Ot 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, STAGE III (MODER 11/28/2016 Ot 572.8 OTH SEQUELA, CHR LILIANA DIS 11/28/2016 Ot 572.8 OTH SEQUELA, CHR LILIANA DIS 11/28/2016 Ot 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, STAGE III (MODER 11/28/2016 Ot 572.8 OTH SEQUELA, CHR LILIANA DIS 11/28/2016 Ot 268.9 MEAGAN MIN D DEFICIENCY NOS 11/28/2016 Ot 275.2 DIS MAGNESIUM METABOLISM 11/28/2016 Ot 572.8 OTH SEQUELA, CHR LILIANA DIS 11/28/2016 Ot 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, STAGE III (MODER 11/28/2016 Ot V42.7 LIVE R TRANSPLANT STATUS 11/28/2016 Ot V58.69 OTH MED,LT,CURRENT USE 11/28/2016 Ot 573.8 LIVE R DISORDERS NEC 11/28/2016 Ot 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 11/28/2016 Ot 789.09 ABD OMINAL PAIN, OTHER SPECIFIED SITE 11/28/2016 RAMESH STARR, PRISCILA Vieira Ot 285.9 ANEMIA NOS 11/28/2016 RAMESH STARR, PRISCILA Vieira Ot 572.8 OTH SEQUELA, [facility] LILIANA DIS 11/28/2016 RAMESH STARR, PRISCILA Vieira Ot 585.9 CHRONIC KIDNEY DISEASE, UNSPECIFIED 11/28/2016 EDUARDO PALACIO Ot 572.8 OTH SEQUELA, CHR LILIANA DIS 11/28/2016 EDUARDO PALACIO Ot 585.9 CHRONIC KIDNEY DISEASE, UNSPECIFIED 11/28/2016 PRISCILA CHANDLER MD Ot 285.9 ANEMIA NOS 11/28/2016 PRISCILA CHANDLER MD Ot 572.8 OTH SEQUELA, CHR LILIANA DIS 11/28/2016 PRISCILA CHANDLER MD Ot 585.9 CHRONIC KIDNEY DISEASE, UNSPECIFIED 11/28/2016 EDUARDO PALACIO Ot 572.8 OTH SEQUELA, CHR LILIANA DIS 11/28/2016 ASIYA STARR, TEREZA Mathew Ot 572.8 OTH SEQUELA, CHR LILIANA DIS 11/28/2016 TEREZA BRADEN MD Ot 585.3 CHRONIC KIDNEY DISEASE, STAGE III (MODER 11/28/2016 PRISCILA CHANDLER MD Ot 268.9 VITAMIN D DEFICIENCY NOS 11/28/2016 PRISCILA CHANDLER MD Ot V42.7 LIVER TRANSPLANT STATUS 11/28/2016 MARIA LUISA STARR, MICHAEL Joel Ot 780.7 9 OTH MALAISE FATIGUE 11/28/2016 PRISCILA CHANDLER MD Ot 585.3 CHRONIC KIDNEY DISEASE, STAGE III (MODER 11/28/2016 MARIA LUISA STARR, MICHAEL Joel Ot 719.0 6 JOINT EFFUSION-L/LEG 11/28/2016 MICHAEL GLASS MD Ot 719.4 7 JOINT PAIN-ANKLE 11/28/2016 TEREZA BRADEN MD Ot V42.7 LIVER TRANSPLANT STATUS 11/28/2016 TEREZA BRADEN MD Ot V58.4 4 AFTERCARE FOLLOWING ORGAN TRANSPLANT 11/28/2016 PRISCILA CHANDLER MD Ot 268.9 VITAMIN D DEFICIENCY NOS 11/28/2016 PRISCILA CHANDLER MD Ot 276.8 HYPOPOTASSEMIA 11/28/2016 PRISCILA CHANDLER MD Ot 585.3 CHRONIC KIDNEY DISEASE, STAGE III (MODER 11/28/2016 PRISCILA CHANDLER MD Ot 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 9 CARDIAC DYSRHYTHMIA NOS 11/28/2016 LOYDA DOMINGUEZ MD Ot 585. 9 CHRONIC KIDNEY DISEASE, UNSPECIFIED 11/28/2016 LOYDA DOMINGUEZ MD Ot V15. 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 11/28/2016 Ot 427.9 CARD IAC DYSRHYTHMIA NOS 11/28/2016 Ot 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, UNSPECIFIED 11/28/2016 Ot 790.29 OTH ER ABNORMAL GLUCOSE 11/28/2016 Ot V15.81 HX OF PAST NONCOMPLIANCE 11/28/2016 PRISCILA CHANDLER MD Ot 268.9 VITAMIN D DEFICIENCY NOS 11/28/2016 PRISCILA CHANDLER MD Ot 275.2 DIS MAGNESIUM METABOLISM 11/28/2016 PRISCILA CHANDLER MD Ot 585.3 CHRONIC KIDNEY DISEASE, STAGE III (MODER 11/28/2016 PRISCILA CHANDLER MD Ot 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 11/28/2016 PRISCILA CHANDLER MD Ot 268.9 VITAMIN D DEFICIENCY NOS 11/28/2016 PRISCILA CHANDLER MD Ot 275.2 DIS MAGNESIUM METABOLISM 11/28/2016 PRISCILA CHANDLER MD Ot 585.3 CHRONIC KIDNEY DISEASE, STAGE III (MODER 11/28/2016 Ot 338.29 OTH ER CHRONIC PAIN 11/28/2016 Ot 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 11/28/2016 Ot 729.82 MONOTYPE CASTER MP IN LIMB 11/28/2016 Ot V58.69 OTH MED,LT,CURRENT USE 11/28/2016 Ot 268.9 MEAGAN MIN D DEFICIENCY NOS 11/28/2016 Ot 275.2 DIS MAGNESIUM METABOLISM 11/28/2016 Ot 403.90 HYP TNSV CHR KID DIS, UNSPEC, W CHR KD ST 11/28/2016 Ot 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, STAGE III (MODER 11/28/2016 MICHAEL GLASS MD Ot 729.8 2 CRAMP IN LIMB 11/28/2016 MICHAEL GLASS MD Ot 780.6 0 FEVER, UNSPECIFIED 11/28/2016 MICHAEL GLASS MD Ot V58.6 9 OTH MED,LT,CURRENT USE 11/28/2016 TEREZA BRADEN MD Ot 571.5 CIRRHOSIS OF LIVER NOS 11/28/2016 TEREZA BRADEN MD Ot V42.7 LIVER TRANSPLANT STATUS 11/28/2016 MICHAEL GLASS MD Ot 573.9 LIVER DISORDER NOS 11/28/2016 MICHAEL GLASS MD Ot 780.6 0 FEVER, UNSPECIFIED 11/28/2016 MICHAEL GLASS MD Ot V42.7 LIVER TRANSPLANT STATUS 11/28/2016 EDUARDO PALACIO Ot 268.9 VITAMIN D DEFICIENCY NOS 11/28/2016 EDUARDO PALACIO Ot 272.4 HYPERLIPIDEMIA NEC/NOS 11/28/2016 EDUARDO PALACIO Ot V42.7 LIVER TRANSPLANT STATUS 11/28/2016 EDUARDO PALACIO Ot V58.69 OTH MED,LT,CURRENT USE 11/28/2016 MICHAEL GLASS MD Ot F17.2 10 NICOTINE DEPENDENCE, CIGARETTES, UNCOMPL 11/28/2016 MICHAEL GLASS MD Ot R05 COUGH 11/28/2016 MICHAEL GLASS MD Ot R10.9 UNSPECIFIED ABDOMINAL PAIN 11/28/2016 MICHAEL GLASS MD Ot R91.1 SOLITARY PULMONARY NODULE 11/28/2016 MARJAN STANLEY DO Ot B49 UNSPECIFIED MYCOSIS 11/28/2016 MARJAN STANLEY DO Ot R91.8 OTHER NONSPECIFIC ABNORMAL FINDING OF BRENT 11/28/2016 MARJAN STANLEY DO Ot Z94.4 LIVER TRANSPLANT STATUS 11/28/2016 KIMBERLEY HILL DO Ot J44. 9 CHRONIC OBSTRUCTIVE PULMONARY DISEASE, U 11/28/2016 KIMBERLEY HILL DO Ot R91. 8 OTHER NONSPECIFIC ABNORMAL FINDING OF BRENT 11/28/2016 RAMESH STARR, PRISCILA Vieira Ot E55.9 VITAMIN D DEFICIENCY, UNSPECIFIED 11/28/2016 PRISCILA CHANDLER MD Ot E83.42 HYPOMAGNESEMIA 11/28/2016 PRISCILA CHANDLER MD Ot K72.90 HEPATIC FAILURE, UNSPECIFIED WITHOUT COM 11/28/2016 PRISCILA CHANDLER MD Ot N18.3 CHRONIC KIDNEY DISEASE, STAGE 3 (MODERAT 11/28/2016 TEREZA BRADEN MD Ot K74.6 0 UNSPECIFIED CIRRHOSIS OF LIVER 11/28/2016 Ot Z51.81 ENC OUNTER FOR THERAPEUTIC DRUG LEVEL MON 11/28/2016 Ot Z79.899 OT HER CORRECTION (CURRENT) DRUG THERAPY 11/28/2016 Ot Z94.4 LIVE R TRANSPLANT STATUS 11/28/2016 MARIA LUISA STARR, MICHAEL Joel Ot K72.9 0 HEPATIC FAILURE, UNSPECIFIED WITHOUT COM 11/28/2016 TEREZA BRADEN MD Ot K74.6 0 UNSPECIFIED CIRRHOSIS OF LIVER 11/28/2016 EMELIA LOZOYA APRN Ot F17.200 NICOTINE DEPENDENCE, UNSPECIFIED, UNCOMP 11/28/2016 EMELIA LOZOYA [employer]IL[employer]IES SPECIALIST Ot J44.9 CHRONIC OBSTRUCTIVE PULMONARY DISEASE, U 11/28/2016 EMELIA LOZOYA APRN Ot F17.200 NICOTINE DEPENDENCE, UNSPECIFIED, UNCOMP 11/28/2016 EMELIA LOZOYA APRN Ot J44.9 CHRONIC OBSTRUCTIVE PULMONARY DISEASE, U 11/28/2016 EMELIA LOZOYA APRN Ot R91.8 OTHER NONSPECIFIC ABNORMAL FINDING OF BRENT 11/28/2016 TEREZA BRADEN MD Ot K74.6 0 UNSPECIFIED CIRRHOSIS OF LIVER 11/28/2016 TEREZA BRADEN MD Ot E83.4 2 HYPOMAGNESEMIA 11/28/2016 JJ CORRAL DO Ot R53.81 OTHER MALAISE 11/28/2016 JJ CORRAL DO Ot Z53.21 PROC/TRTMT NOT CRD OUT D/T PT LV BEF SEE 11/28/2016 JJ CORRAL DO Ot Z94.4 LIVER TRANSPLANT STATUS 12/11/2016 TEREZA BRADEN MD Ot Z94.4 LIVER TRANSPLANT STATUS 01/04/2017 Ot V42.7 LIVE R TRANSPLANT STATUS 01/04/2017 Ot V58.44 AFT ERCARE FOLLOWING ORGAN TRANSPLANT 01/04/2017 Ot V58.69 OTH MED,LT,CURRENT USE 01/04/2017 Ot 572.8 OTH SEQUELA, CHR LILIANA DIS 01/04/2017 Ot 572.8 OTH SEQUELA, CHR LILIANA DIS 01/04/2017 Ot 276.8 HYPO POTASSEMIA 01/04/2017 Ot 572.8 OTH SEQUELA, CHR LILIANA DIS 01/04/2017 Ot 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, STAGE III (MODER 01/04/2017 Ot 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 01/04/2017 Ot 571.5 CIRR HOSIS OF LIVER NOS 01/04/2017 Ot V42.7 LIVE R TRANSPLANT STATUS 01/04/2017 Ot 572.8 OTH SEQUELA, CHR LILIANA DIS 01/04/2017 Ot 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, STAGE III (MODER 01/04/2017 Ot 285.9 ANEM IA NOS 01/04/2017 Ot 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, STAGE III (MODER 01/04/2017 Ot 572.8 OTH SEQUELA, CHR LILIANA DIS 01/04/2017 Ot 572.8 OTH SEQUELA, CHR LILIANA DIS 01/04/2017 Ot 572.8 OTH SEQUELA, CHR LILIANA DIS 01/04/2017 Ot 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, STAGE III (MODER 01/04/2017 Ot 572.8 OTH SEQUELA, CHR LILIANA DIS 01/04/2017 Ot 572.8 OTH SEQUELA, CHR LILIANA DIS 01/04/2017 Ot 070.54 CHR ONIC HEPATITIS C W/O HEPATIC COMA 01/04/2017 Ot 285.9 ANEM IA NOS 01/04/2017 Ot 491.20 OBS TR CHRONIC BRONCHITIS, W/O EXACERBATI 01/04/2017 Ot 572.8 OTH SEQUELA, CHR LILIANA DIS 01/04/2017 Ot 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, UNSPECIFIED 01/04/2017 Ot V42.7 LIVE R TRANSPLANT STATUS 01/04/2017 Ot 572.8 OTH SEQUELA, CHR LILIANA DIS 01/04/2017 Ot 572.8 OTH SEQUELA, CHR LILIANA DIS 01/04/2017 Ot 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, UNSPECIFIED 01/04/2017 Ot 572.8 OTH SEQUELA, CHR LILIANA DIS 01/04/2017 Ot 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, UNSPECIFIED 01/04/2017 Ot 572.8 OTH SEQUELA, CHR LILIANA DIS 01/04/2017 Ot 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8 OTH SEQUELA, [facility] DIS 01/04/2017 Ot 572.8 OTH SEQUELA, [facility] DIS 01/04/2017 Ot 572.8 OTH SEQUELA, [facility] [place] DIS 01/04/2017 Ot 070.54 CHR ONIC HEPATITIS C W/O HEPATIC COMA 01/04/2017 Ot 572.8 OTH SEQUELA, [facility] DIS 01/04/2017 Ot 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, STAGE III (MODER 01/04/2017 Ot 572.8 OTH SEQUELA, [facility] DIS 01/04/2017 Ot 572.8 OTH SEQUELA, [facility] DIS 01/04/2017 Ot 572.8 OTH SEQUELA, [facility] [place] DIS 01/04/2017 Ot 572.8 OTH SEQUELA, [facility] DIS 01/04/2017 Ot 572.8 OTH SEQUELA, [facility] [place] DIS 01/04/2017 Ot 572.8 OTH SEQUELA, [facility] DIS 01/04/2017 Ot V42.7 LIVE R TRANSPLANT STATUS 01/04/2017 Ot 268.9 MEAGAN MIN D DEFICIENCY NOS 01/04/2017 Ot 281.1 B12 DEFIC ANEMIA NEC 01/04/2017 Ot 285.9 ANEM IA NOS 01/04/2017 Ot 491.21 OBS TR CHRONIC BRONCHITIS, W (ACUTE) EXAC 01/04/2017 Ot 572.8 OTH SEQUELA, [facility] DIS 01/04/2017 Ot 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, STAGE III (MODER 01/04/2017 Ot V42.7 LIVE R TRANSPLANT STATUS 01/04/2017 Ot V58.69 OTH MED,LT,CURRENT USE 01/04/2017 Ot 573.8 LIVE R DISORDERS NEC 01/04/2017 Ot 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 01/04/2017 Ot 721.3 LUMB OSACRAL SPONDYLOSIS 01/04/2017 Ot V58.69 OTH MED,LT,CURRENT USE 01/04/2017 Ot 572.8 OTH SEQUELA, [facility] DIS 01/04/2017 Ot V42.7 LIVE R TRANSPLANT STATUS 01/04/2017 Ot 572.8 OTH SEQUELA, [facility] DIS 01/04/2017 Ot 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, STAGE III (MODER 01/04/2017 Ot 572.8 OTH SEQUELA, [facility] DIS 01/04/2017 Ot 572.8 OTH SEQUELA, [facility] DIS 01/04/2017 Ot 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, STAGE III (MODER 01/04/2017 Ot 572.8 OTH SEQUELA, [facility] DIS 01/04/2017 Ot 268.9 MEAGAN MIN D DEFICIENCY NOS 01/04/2017 Ot 275.2 DIS MAGNESIUM METABOLISM 01/04/2017 Ot 572.8 OTH SEQUELA, [facility] DIS 01/04/2017 Ot 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, STAGE III (MODER 01/04/2017 Ot V42.7 LIVE R TRANSPLANT STATUS 01/04/2017 Ot V58.69 OTH MED,LT,CURRENT USE 01/04/2017 Ot 573.8 LIVE R DISORDERS NEC 01/04/2017 Ot 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 01/04/2017 Ot 789.09 ABD OMINAL PAIN, OTHER SPECIFIED SITE 01/04/2017 PRISCILA CHANDLER MD Ot 285.9 ANEMIA NOS 01/04/2017 PRISCILA CHANDLER MD Ot 572.8 OTH SEQUELA, [facility] [place] DIS 01/04/2017 PRISCILA CHANDLER MD Ot 585.9 CHRONIC KIDNEY DISEASE, UNSPECIFIED 01/04/2017 EDUARDO PALACIO Ot 572.8 OTH SEQUELA, [facility] DIS 01/04/2017 EDUARDO PALACIO Ot 585.9 CHRONIC KIDNEY DISEASE, UNSPECIFIED 01/04/2017 PRISCILA CHANDLER MD Ot 285.9 ANEMIA NOS 01/04/2017 PRISCILA CHANDLER MD Ot 572.8 OTH SEQUELA, [facility] DIS 01/04/2017 PRISCILA CHANDLER MD Ot 585.9 CHRONIC KIDNEY DISEASE, UNSPECIFIED 01/04/2017 EDUARDO PALACIO Ot 572.8 OTH SEQUELA, [facility] DIS 01/04/2017 TEREZA BRADEN MD Ot 572.8 OTH SEQUELA, [facility] DIS 01/04/2017 TEREZA BRADEN MD Ot 585.3 CHRONIC KIDNEY DISEASE, STAGE III (MODER 01/04/2017 RAMESH STARR, PRISCILA Vieira Ot 268.9 VITAMIN D DEFICIENCY NOS 01/04/2017 RAMESH STARR, PRISCILA Vieira Ot V42.7 LIVER TRANSPLANT STATUS 01/04/2017 MARIA LUISA STARR, MICHAEL Joel Ot 780.7 9 OTH MALAISE FATIGUE 01/04/2017 PRISCILA CHANDLER MD Ot 585.3 CHRONIC KIDNEY DISEASE, STAGE III (MODER 01/04/2017 MARIA LUISA STARR, MICHAEL Joel Ot 719.0 6 JOINT EFFUSION-L/LEG 01/04/2017 MARIA LUISA STARR, MICHAEL Joel Ot 719.4 7 JOINT PAIN-ANKLE 01/04/2017 TEREZA BRADEN MD Ot V42.7 LIVER TRANSPLANT STATUS 01/04/2017 TEREZA BRADEN MD Ot V58.4 4 AFTERCARE FOLLOWING ORGAN TRANSPLANT 01/04/2017 PRISCILA CHANDLER MD Ot 268.9 VITAMIN D DEFICIENCY NOS 01/04/2017 PRISCILA CHANDLER MD Ot 276.8 HYPOPOTASSEMIA 01/04/2017 PRISCILA CHANDLER MD Ot 585.3 CHRONIC KIDNEY DISEASE, STAGE III (MODER 01/04/2017 PRISCILA CHANDLER MD Ot 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 9 CARDIAC DYSRHYTHMIA NOS 01/04/2017 LOYDA DOMINGUEZ MD Ot 585. 9 CHRONIC KIDNEY DISEASE, UNSPECIFIED 01/04/2017 LOYDA DOMINGUEZ MD Ot V15. 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 01/04/2017 Ot 427.9 CARD IAC DYSRHYTHMIA NOS 01/04/2017 Ot 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, UNSPECIFIED 01/04/2017 Ot 790.29 OTH ER ABNORMAL GLUCOSE 01/04/2017 Ot V15.81 HX OF PAST NONCOMPLIANCE 01/04/2017 PRISCILA CHANDLER MD Ot 268.9 VITAMIN [...] DISEASE, STAGE III (MODER 01/04/2017 Ot 338.29 OTH ER CHRONIC PAIN 01/04/2017 Ot 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 01/04/2017 Ot 729.82 MONOTYPE CASTER MP IN LIMB 01/04/2017 Ot V58.69 OTH MED,LT,CURRENT USE 01/04/2017 Ot 268.9 MEAGAN MIN D DEFICIENCY NOS 01/04/2017 Ot 275.2 DIS MAGNESIUM METABOLISM 01/04/2017 Ot 403.90 HYP TNSV CHR KID DIS, UNSPEC, W CHR KD ST 01/04/2017 Ot 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, STAGE III (MODER 01/04/2017 MARIA LUISA STARR, MICHAEL Joel Ot 729.8 2 CRAMP IN LIMB 01/04/2017 MARIA LUISA STARR, MICHAEL Joel Ot 780.6 0 FEVER, UNSPECIFIED 01/04/2017 MICHAEL GLASS MD Ot V58.6 9 OTH MED,LT,CURRENT USE 01/04/2017 TEREZA BRADEN MD Ot 571.5 CIRRHOSIS OF LIVER NOS 01/04/2017 TEREZA BRADEN MD Ot V42.7 LIVER TRANSPLANT STATUS 01/04/2017 MICHAEL GLASS MD Ot 573.9 LIVER DISORDER NOS 01/04/2017 MICHAEL GLASS MD Ot 780.6 0 FEVER, UNSPECIFIED 01/04/2017 MICHAEL GLASS MD Ot V42.7 LIVER TRANSPLANT STATUS 01/04/2017 EDUARDO PALACIO Ot 268.9 VITAMIN D DEFICIENCY NOS 01/04/2017 EDUARDO PALACIO Ot 272.4 HYPERLIPIDEMIA NEC/NOS 01/04/2017 EDUARDO PALACIO Ot V42.7 LIVER TRANSPLANT STATUS 01/04/2017 EDUARDO PALACIO Ot V58.69 OTH MED,LT,CURRENT USE 01/04/2017 MARIA LUISA STARR, MICHAEL Joel Ot F17.2 10 NICOTINE DEPENDENCE, CIGARETTES, UNCOMPL 01/04/2017 MARIA LUISA STARR, MICHAEL Joel Ot R05 COUGH 01/04/2017 MICHAEL GLASS MD Ot R10.9 UNSPECIFIED ABDOMINAL PAIN 01/04/2017 MICHAEL GLASS MD Ot R91.1 SOLITARY PULMONARY NODULE 01/04/2017 MARJAN STANLEY DO Ot B49 UNSPECIFIED MYCOSIS 01/04/2017 MARJAN STANLEY DO Ot R91.8 OTHER NONSPECIFIC ABNORMAL FINDING OF BRENT 01/04/2017 MARJAN STANLEY DO Ot Z94.4 LIVER TRANSPLANT STATUS 01/04/2017 KIMBERLEY HILL DO Ot J44. 9 CHRONIC OBSTRUCTIVE PULMONARY DISEASE, U 01/04/2017 KIMBERLEY HILL DO Ot R91. 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 01/04/2017 Ot Z94.4 LIVE R TRANSPLANT STATUS 01/04/2017 MICHAEL GLASS MD Ot K72.9 0 HEPATIC FAILURE, UNSPECIFIED WITHOUT COM 01/04/2017 TEREZA BRADEN MD Ot K74.6 0 UNSPECIFIED CIRRHOSIS OF LIVER 01/04/2017 EMELIA LOZOYA [employer]ION[employer]ILITIES SPECIALIST Ot F17.200 NICOTINE DEPENDENCE, UNSPECIFIED, UNCOMP 01/04/2017 EMELIA LOZOYA REGIONAL FACILITIES SPECIALIST Ot J44.9 CHRONIC OBSTRUCTIVE PULMONARY DISEASE, U 01/04/2017 EMELIA LOZOYA REGIONAL FACILITIES SPECIALIST Ot F17.200 NICOTINE DEPENDENCE, UNSPECIFIED, UNCOMP 01/04/2017 EMELIA LOZOYA REGIONAL FACILITIES SPECIALIST Ot J44.9 CHRONIC OBSTRUCTIVE PULMONARY DISEASE, U 01/04/2017 EMELIA LOZOYA REGIONAL FACILITIES SPECIALIST Ot R91.8 OTHER NONSPECIFIC ABNORMAL FINDING OF BRENT 01/04/2017 TEREZA BRADEN MD Ot K74.6 0 UNSPECIFIED CIRRHOSIS OF LIVER 01/04/2017 TEREZA BRADEN MD Ot E83.4 2 HYPOMAGNESEMIA 01/04/2017 TEREZA BRADEN MD Ot Z94.4 LIVER TRANSPLANT STATUS 01/04/2017 PRISCILA CHANDLER MD Ot E55.9 VITAMIN D DEFICIENCY, UNSPECIFIED 01/04/2017 PRISCILA CHANDLER MD Ot E83.42 HYPOMAGNESEMIA 01/04/2017 PRISCILA CHANDLER MD Ot J20.9 ACUTE BRONCHITIS, UNSPECIFIED 01/04/2017 PRISCILA CHANDLER MD Ot N18.3 CHRONIC KIDNEY DISEASE, STAGE 3 (MODERAT 01/04/2017 TEREZA BRADEN MD Ot K74.6 0 UNSPECIFIED CIRRHOSIS OF LIVER 01/04/2017 PRISCILA CHANDLER MD Ot E55.9 VITAMIN D DEFICIENCY, UNSPECIFIED 01/04/2017 RAMESH STARR PRISCILA Vieira Ot E83.42 HYPOMAGNESEMIA 01/04/2017 RAMESH STARR, PRISCILA Vieira Ot J20.9 ACUTE BRONCHITIS, UNSPECIFIED 01/04/2017 RAMESH STARR, PRISCILA Vieira Ot N18.3 CHRONIC KIDNEY DISEASE, STAGE 3 (MODERAT 01/05/2017 ASIYA STARR, YADY Ot K74.6 0 UNSPECIFIED CIRRHOSIS OF LIVER 01/21/2017 Ot V42.7 LIVE R TRANSPLANT STATUS 01/21/2017 Ot V58.44 AFT ERCARE FOLLOWING ORGAN TRANSPLANT 01/21/2017 Ot V58.69 OTH MED,LT,CURRENT USE 01/21/2017 Ot 572.8 OTH SEQUELA, [facility] DIS 01/21/2017 Ot 276.8 HYPO POTASSEMIA 01/21/2017 Ot 572.8 OTH SEQUELA, [facility] DIS 01/21/2017 Ot 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, STAGE III (MODER 01/21/2017 Ot 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 01/21/2017 Ot 571.5 CIRR HOSIS OF LIVER NOS 01/21/2017 Ot V42.7 LIVE R TRANSPLANT STATUS 01/21/2017 Ot 572.8 OTH SEQUELA, [facility] DIS 01/21/2017 Ot 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, STAGE III (MODER 01/21/2017 Ot 285.9 ANEM IA NOS 01/21/2017 Ot 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, STAGE III (MODER 01/21/2017 Ot 572.8 OTH SEQUELA, [facility] DIS 01/21/2017 Ot 572.8 OTH SEQUELA, [facility] DIS 01/21/2017 Ot 572.8 OTH SEQUELA, [facility] DIS 01/21/2017 Ot 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, STAGE III (MODER 01/21/2017 Ot 572.8 OTH SEQUELA, [facility] DIS 01/21/2017 Ot 572.8 OTH SEQUELA, [facility] DIS 01/21/2017 Ot 070.54 CHR ONIC HEPATITIS C W/O HEPATIC COMA 01/21/2017 Ot 285.9 ANEM IA NOS 01/21/2017 Ot 491.20 OBS TR CHRONIC BRONCHITIS, W/O EXACERBATI 01/21/2017 Ot 572.8 OTH SEQUELA, [facility] DIS 01/21/2017 Ot 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, UNSPECIFIED 01/21/2017 Ot V42.7 LIVE R TRANSPLANT STATUS 01/21/2017 Ot 572.8 OTH SEQUELA, [facility] DIS 01/21/2017 Ot 572.8 OTH SEQUELA, [facility] DIS 01/21/2017 Ot 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, UNSPECIFIED 01/21/2017 Ot 572.8 OTH SEQUELA, [facility] DIS 01/21/2017 Ot 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, UNSPECIFIED 01/21/2017 Ot 572.8 OTH SEQUELA, [facility] [place] DIS 01/21/2017 Ot 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, STAGE III (MODER 01/21/2017 Ot 572.8 OTH SEQUELA, [facility] [place] DIS 01/21/2017 Ot 572.8 OTH SEQUELA, [facility] [place] DIS 01/21/2017 Ot 285.9 ANEM IA NOS 01/21/2017 Ot 496 CHR AI RWAY OBSTRUCT NEC 01/21/2017 Ot 572.8 OTH SEQUELA, [facility] DIS 01/21/2017 Ot 607.84 IMP OTENCE, ORGANIC ORIGN 01/21/2017 Ot 780.79 OTH MALAISE FATIGUE 01/21/2017 Ot V42.7 LIVE R TRANSPLANT STATUS 01/21/2017 Ot V58.69 OTH MED,LT,CURRENT USE 01/21/2017 Ot 572.8 OTH SEQUELA, [facility] DIS 01/21/2017 Ot 796.4 ABN CLINICAL FINDING NEC 01/21/2017 Ot V42.7 LIVE R TRANSPLANT STATUS 01/21/2017 Ot 572.8 OTH SEQUELA, [facility] DIS 01/21/2017 Ot 572.8 OTH SEQUELA, [facility] DIS 01/21/2017 Ot 572.8 OTH SEQUELA, [facility] DIS 01/21/2017 Ot 070.54 CHR ONIC HEPATITIS C W/O HEPATIC COMA 01/21/2017 Ot 572.8 OTH SEQUELA, [facility] DIS 01/21/2017 Ot 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, STAGE III (MODER 01/21/2017 Ot 572.8 OTH SEQUELA, [facility] DIS 01/21/2017 Ot 572.8 OTH SEQUELA, [facility] [place] DIS 01/21/2017 Ot 572.8 OTH SEQUELA, [facility] [place] DIS 01/21/2017 Ot 572.8 OTH SEQUELA, [facility] [place] DIS 01/21/2017 Ot 572.8 OTH SEQUELA, [facility] [place] DIS 01/21/2017 Ot 572.8 OTH SEQUELA, [facility] DIS 01/21/2017 Ot V42.7 LIVE R TRANSPLANT STATUS 01/21/2017 Ot 268.9 MEAGAN MIN D DEFICIENCY NOS 01/21/2017 Ot 281.1 B12 DEFIC ANEMIA NEC 01/21/2017 Ot 285.9 ANEM IA NOS 01/21/2017 Ot 491.21 OBS TR CHRONIC BRONCHITIS, W (ACUTE) EXAC 01/21/2017 Ot 572.8 OTH SEQUELA, [facility] DIS 01/21/2017 Ot 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, STAGE III (MODER 01/21/2017 Ot V42.7 LIVE R TRANSPLANT STATUS 01/21/2017 Ot V58.69 OTH MED,LT,CURRENT USE 01/21/2017 Ot 573.8 LIVE R DISORDERS NEC 01/21/2017 Ot 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 01/21/2017 Ot 721.3 LUMB OSACRAL SPONDYLOSIS 01/21/2017 Ot V58.69 OTH MED,LT,CURRENT USE 01/21/2017 Ot 572.8 OTH SEQUELA, [facility] DIS 01/21/2017 Ot V42.7 LIVE R TRANSPLANT STATUS 01/21/2017 Ot 572.8 OTH SEQUELA, [facility] DIS 01/21/2017 Ot 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, STAGE III (MODER 01/21/2017 Ot 572.8 OTH SEQUELA, [facility] LILIANA DIS 01/21/2017 Ot 572.8 OTH SEQUELA, [facility] [place] DIS 01/21/2017 Ot 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, STAGE III (MODER 01/21/2017 Ot 572.8 OTH SEQUELA, [facility] DIS 01/21/2017 Ot 268.9 MEAGAN MIN D DEFICIENCY NOS 01/21/2017 Ot 275.2 DIS MAGNESIUM METABOLISM 01/21/2017 Ot 572.8 OTH SEQUELA, [facility] DIS 01/21/2017 Ot 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, STAGE III (MODER 01/21/2017 Ot V42.7 LIVE R TRANSPLANT STATUS 01/21/2017 Ot V58.69 OTH MED,LT,CURRENT USE 01/21/2017 Ot 573.8 LIVE R DISORDERS NEC 01/21/2017 Ot 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 01/21/2017 Ot 789.09 ABD OMINAL PAIN, OTHER SPECIFIED SITE 01/21/2017 PRISCILA CHANDLER MD Ot 285.9 ANEMIA NOS 01/21/2017 PRISCILA CHANDLER MD Ot 572.8 OTH SEQUELA, [facility] DIS 01/21/2017 PRISCILA CHANDLER MD Ot 585.9 CHRONIC KIDNEY DISEASE, UNSPECIFIED 01/21/2017 EDUARDO PALACIO Ot 572.8 OTH SEQUELA, [facility] DIS 01/21/2017 EDUARDO PALACIO Ot 585.9 CHRONIC KIDNEY DISEASE, UNSPECIFIED 01/21/2017 [...] 01/21/2017 MARIA LUISA STARR, MICHAEL Joel Ot 780.7 9 OTH MALAISE FATIGUE 01/21/2017 PRISCILA CHANDLER MD Ot 585.3 CHRONIC KIDNEY DISEASE, STAGE III (MODER 01/21/2017 MARIA LUISA STARR, MICHAEL Joel Ot 719.0 6 JOINT EFFUSION-L/LEG 01/21/2017 MARIA LUISA STARR, MICHAEL Joel Ot 719.4 7 JOINT PAIN-ANKLE 01/21/2017 TEREZA BRADEN MD Ot V42.7 LIVER TRANSPLANT STATUS 01/21/2017 TEREZA BRADEN MD Ot V58.4 4 AFTERCARE FOLLOWING ORGAN TRANSPLANT 01/21/2017 PRISCILA CHANDLER MD Ot 268.9 VITAMIN D DEFICIENCY NOS 01/21/2017 PRISCILA CHANDLER MD Ot 276.8 HYPOPOTASSEMIA 01/21/2017 PRISCILA CHANDLER MD Ot 585.3 CHRONIC KIDNEY DISEASE, STAGE III (MODER 01/21/2017 PRISCILA CHANDLER MD Ot 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 9 CARDIAC DYSRHYTHMIA NOS 01/21/2017 LOYDA DOMINGUEZ MD Ot 585. 9 CHRONIC KIDNEY DISEASE, UNSPECIFIED 01/21/2017 LOYDA DOMINGUEZ MD Ot V15. 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 01/21/2017 Ot 427.9 CARD IAC DYSRHYTHMIA NOS 01/21/2017 Ot 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, UNSPECIFIED 01/21/2017 Ot 790.29 OTH ER ABNORMAL GLUCOSE 01/21/2017 Ot V15.81 HX OF [...] DISEASE, STAGE III (MODER 01/21/2017 Ot 338.29 OTH ER CHRONIC PAIN 01/21/2017 Ot 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 01/21/2017 Ot 729.82 MONOTYPE CASTER MP IN LIMB 01/21/2017 Ot V58.69 OTH MED,LT,CURRENT USE 01/21/2017 Ot 268.9 MEAGAN MIN D DEFICIENCY NOS 01/21/2017 Ot 275.2 DIS MAGNESIUM METABOLISM 01/21/2017 Ot 403.90 HYP TNSV CHR KID DIS, UNSPEC, W CHR KD ST 01/21/2017 Ot 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, STAGE III (MODER 01/21/2017 MARIA LUISA STARR, MICHAEL Joel Ot 729.8 2 CRAMP IN LIMB 01/21/2017 MICHAEL GLASS MD Ot 780.6 0 FEVER, UNSPECIFIED 01/21/2017 MICHAEL GLASS MD Ot V58.6 9 OTH MED,LT,CURRENT USE 01/21/2017 TEREZA BRADEN MD Ot 571.5 CIRRHOSIS OF LIVER NOS 01/21/2017 TEREZA BRADEN MD Ot V42.7 LIVER TRANSPLANT STATUS 01/21/2017 MICHAEL GLASS MD Ot 573.9 LIVER DISORDER NOS 01/21/2017 MICHAEL GLASS MD Ot 780.6 0 FEVER, UNSPECIFIED 01/21/2017 MICHAEL GLASS MD Ot V42.7 LIVER TRANSPLANT STATUS 01/21/2017 EDUARDO PALACIO Ot 268.9 VITAMIN D DEFICIENCY NOS 01/21/2017 EDUARDO PALACIO Ot 272.4 HYPERLIPIDEMIA NEC/NOS 01/21/2017 EDUARDO PALACIO Ot V42.7 LIVER TRANSPLANT STATUS 01/21/2017 EDUARDO PALACIO Ot V58.69 OTH MED,LT,CURRENT USE 01/21/2017 MICHAEL GLASS MD Ot F17.2 10 NICOTINE DEPENDENCE, CIGARETTES, UNCOMPL 01/21/2017 MARIA LUISA STARR, MICHAEL Joel Ot R05 COUGH 01/21/2017 MICHAEL GLASS MD Ot R10.9 UNSPECIFIED ABDOMINAL PAIN 01/21/2017 MICHAEL GLASS MD Ot R91.1 SOLITARY PULMONARY NODULE 01/21/2017 CHIO STANLEY DOI Ot B49 UNSPECIFIED MYCOSIS 01/21/2017 STANLEYCHIO LIN DOI Ot R91.8 OTHER NONSPECIFIC ABNORMAL FINDING OF BRENT 01/21/2017 LIZETH SULLIVAN MARJAN Ot Z94.4 LIVER TRANSPLANT STATUS 01/21/2017 KIMBERLEY HILL DO Ot J44. 9 CHRONIC OBSTRUCTIVE PULMONARY DISEASE, U 01/21/2017 KIMBERLEY HILL DO Ot R91. 8 OTHER NONSPECIFIC ABNORMAL FINDING OF BRENT 01/21/2017 RAMESH STARR, PRISCILA Vieira Ot E55.9 VITAMIN D DEFICIENCY, UNSPECIFIED 01/21/2017 PRISCILA CHANDLER MD Ot E83.42 HYPOMAGNESEMIA 01/21/2017 PRISCILA CHANDLER MD Ot K72.90 HEPATIC FAILURE, UNSPECIFIED WITHOUT COM 01/21/2017 PRISCILA CHANDLER MD Ot N18.3 CHRONIC KIDNEY DISEASE, STAGE 3 (MODERAT 01/21/2017 TEREZA BRADEN MD Ot K74.6 0 UNSPECIFIED CIRRHOSIS OF LIVER 01/21/2017 Ot Z51.81 ENC OUNTER FOR THERAPEUTIC DRUG LEVEL MON 01/21/2017 Ot Z79.899 OT HER CORRECTION (CURRENT) DRUG THERAPY 01/21/2017 Ot Z94.4 LIVE R TRANSPLANT STATUS 01/21/2017 MICHAEL GLASS MD Ot K72.9 0 HEPATIC FAILURE, UNSPECIFIED WITHOUT COM 01/21/2017 TEREZA BRADEN MD Ot K74.6 0 UNSPECIFIED CIRRHOSIS OF LIVER 01/21/2017 EMELIA LOZOYA APRN Ot F17.200 NICOTINE DEPENDENCE, UNSPECIFIED, UNCOMP 01/21/2017 EMELIA LOZOYA APRN Ot J44.9 CHRONIC OBSTRUCTIVE PULMONARY DISEASE, U 01/21/2017 EMELIA LOZOYA APRN Ot F17.200 NICOTINE DEPENDENCE, UNSPECIFIED, UNCOMP 01/21/2017 EMELIA LOZOYA APRN Ot J44.9 CHRONIC OBSTRUCTIVE PULMONARY DISEASE, U 01/21/2017 EMELIA LOZOYA APRN Ot R91.8 OTHER NONSPECIFIC ABNORMAL FINDING OF BRENT 01/21/2017 TEREZA BRADEN MD Ot K74.6 0 UNSPECIFIED CIRRHOSIS OF LIVER 01/21/2017 TEREZA BRADEN MD Ot E83.4 2 HYPOMAGNESEMIA 01/21/2017 TEREZA BRADEN MD Ot Z94.4 LIVER TRANSPLANT STATUS 01/21/2017 RAMESH STARR, PRISCILA Vieira Ot E55.9 VITAMIN D DEFICIENCY, UNSPECIFIED 01/21/2017 RAMESH STARR, PRISCILA Vieira Ot E83.42 HYPOMAGNESEMIA 01/21/2017 RAMESH STARR, PRISCILA Vieira Ot J20.9 ACUTE BRONCHITIS, UNSPECIFIED 01/21/2017 PRISCILA CHANDLER MD Ot N18.3 CHRONIC KIDNEY DISEASE, STAGE 3 (MODERAT 01/21/2017 TEREZA BRADEN MD Ot K74.6 0 UNSPECIFIED CIRRHOSIS OF LIVER 01/21/2017 Ot 573.8 LIVE R DISORDERS NEC 01/21/2017 Ot 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 01/21/2017 Ot 789.09 ABD OMINAL PAIN, OTHER SPECIFIED SITE 01/21/2017 Ot 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 01/21/2017 Ot 427.9 CARD IAC DYSRHYTHMIA NOS 01/21/2017 Ot 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, UNSPECIFIED 01/21/2017 Ot 790.29 OTH ER ABNORMAL GLUCOSE 01/21/2017 Ot V15.81 HX OF PAST NONCOMPLIANCE 01/21/2017 Ot Z51.81 ENC OUNTER FOR THERAPEUTIC DRUG LEVEL MON 01/21/2017 Ot Z79.899 OT HER CORRECTION (CURRENT) DRUG THERAPY 01/21/2017 Ot Z94.4 LIVE R TRANSPLANT STATUS 01/21/2017 MICHAEL GLASS MD Ot K72.9 0 HEPATIC FAILURE, UNSPECIFIED WITHOUT COM 01/21/2017 MAXIME AMAYA APRN Ot B19.20 UNSPECIFIED VIRAL HEPATITIS C WITHOUT HE 01/21/2017 MAXIME AMAYA APRN Ot F32 .9 MAJOR DEPRESSIVE DISORDER, SINGLE EPISOD 01/21/2017 MAXIME AMAYA APRN Ot F41 .9 ANXIETY DISORDER, UNSPECIFIED 01/21/2017 MAXIME AMAYA APRN Ot G89.29 OTHER CHRONIC PAIN 01/21/2017 AMAYA, PETER J [employer] SPECIALIST Ot J43 .9 EMPHYSEMA, UNSPECIFIED 01/21/2017 MAXIME AMAYA [employer]IL[employer]IES SPECIALIST Ot J45.909 UNSPECIFIED ASTHMA, UNCOMPLICATED 01/21/2017 MAXIME AMAYA [employer]IL[employer]IES SPECIALIST Ot M19.90 UNSPECIFIED OSTEOARTHRITIS, UNSPECIFIED 01/21/2017 MAXIME AMAYA [employer]ILITIES SPECIALIST Ot N18 .9 CHRONIC KIDNEY DISEASE, UNSPECIFIED 01/21/2017 MAXIME AMAYA [employer]ACILITIES SPECIALIST Ot R10.11 RIGHT UPPER QUADRANT PAIN 01/21/2017 MAXIME AMAYA [employer]ILITIES SPECIALIST Ot R10.31 RIGHT LOWER QUADRANT PAIN 01/21/2017 MAXIME AMAYA [employer]ION[employer]ILITIES SPECIALIST Ot Z87.19 PERSONAL HISTORY OF OTHER DISEASES OF TH 01/21/2017 MAXIME AMAYA [employer]ACILITIES SPECIALIST Ot Z94 .4 LIVER TRANSPLANT STATUS 01/21/2017 MAXIME AMAYA [employer]ILITIES SPECIALIST Ot F17.210 NICOTINE DEPENDENCE, CIGARETTES, UNCOMPL 01/21/2017 MAXIME AMAYA [employer]ION[employer]ILITIES SPECIALIST Ot F32 .9 MAJOR DEPRESSIVE DISORDER, SINGLE EPISOD 01/21/2017 MAXIME AMAYA [employer]ION[employer]ACILITIES SPECIALIST Ot F41 .9 ANXIETY DISORDER, UNSPECIFIED 01/21/2017 MAXIME AMAYA [employer]ION[employer] FACILITIES SPECIALIST Ot J43 .9 EMPHYSEMA, UNSPECIFIED 01/21/2017 MAXIME AMAYA [employer]ION[employer] FACILITIES SPECIALIST Ot J45.909 UNSPECIFIED ASTHMA, UNCOMPLICATED 01/21/2017 MAXIME AMAYA [employer]ION[employer] FACILITIES SPECIALIST Ot M19.90 UNSPECIFIED OSTEOARTHRITIS, UNSPECIFIED 01/21/2017 MAXIME AMAYA [employer]ION[employer]ILITIES SPECIALIST Ot R10.11 RIGHT UPPER QUADRANT PAIN 01/21/2017 MAXIME AMAYA APRN Ot R10.31 RIGHT LOWER QUADRANT PAIN 01/21/2017 MAXIME AMAYA [employer]ION[employer]ILITIES SPECIALIST Ot Z85.05 PERSONAL HISTORY OF MALIGNANT NEOPLASM O 01/21/2017 MAXIME AMAYA [employer]IL[employer]IES SPECIALIST Ot Z87.19 PERSONAL HISTORY OF OTHER DISEASES OF TH 01/21/2017 MAXIME AMAYA [employer]ION[employer] FACILITIES SPECIALIST Ot Z94 .4 LIVER TRANSPLANT STATUS 01/23/2017 MAXIME AMAYA [employer]ILITIES SPECIALIST Ot B19.20 UNSPECIFIED VIRAL HEPATITIS C WITHOUT HE 01/23/2017 MAXIME AMAYA [employer]ILITIES SPECIALIST Ot F32 .9 MAJOR DEPRESSIVE DISORDER, SINGLE EPISOD 01/23/2017 MAXIME AMAYA [employer]ILITIES SPECIALIST Ot F41 .9 ANXIETY DISORDER, UNSPECIFIED 01/23/2017 MAXIME AMAYA [employer]ACILITIES SPECIALIST Ot G89.29 OTHER CHRONIC PAIN 01/23/2017 MAXIME AMAYA [employer]ACILITIES SPECIALIST Ot J43 .9 EMPHYSEMA, UNSPECIFIED 01/23/2017 MAXIME AMAYA [employer]ILITIES SPECIALIST Ot J45.909 UNSPECIFIED ASTHMA, UNCOMPLICATED 01/23/2017 MAXIME AMAYA [employer]ION[employer]ACILITIES SPECIALIST Ot M19.90 UNSPECIFIED OSTEOARTHRITIS, UNSPECIFIED 01/23/2017 MAXIME AMAYA [employer]ION[employer]ACILITIES SPECIALIST Ot N18 .9 CHRONIC KIDNEY DISEASE, UNSPECIFIED 01/23/2017 MAXIME AMAYA [employer]ILITIES SPECIALIST Ot R10.11 RIGHT UPPER QUADRANT PAIN 01/23/2017 MAXIME AMAYA [employer]ION[employer]ACILITIES SPECIALIST Ot R10.31 RIGHT LOWER QUADRANT PAIN 01/23/2017 MAXIME AMAYA [employer]ILITIES SPECIALIST Ot Z87.19 PERSONAL HISTORY OF OTHER DISEASES OF 01/23/2017 MAXIME AMAYA [employer]ILITIES SPECIALIST Ot Z94 .4 LIVER TRANSPLANT STATUS 01/23/2017 MAXIME AMAYA [employer]IL[employer]IES SPECIALIST Ot F17.210 NICOTINE DEPENDENCE, CIGARETTES, UNCOMPL 01/23/2017 MAXIME AMAYA [employer]ILITIES SPECIALIST Ot F32 .9 MAJOR DEPRESSIVE DISORDER, SINGLE EPISOD 01/23/2017 MAXIME AMAYA [employer]ION[employer] FACILITIES SPECIALIST Ot F41 .9 ANXIETY DISORDER, UNSPECIFIED 01/23/2017 MAXIME AMAYA REGIONAL FACILITIES SPECIALIST Ot J43 .9 EMPHYSEMA, UNSPECIFIED 01/23/2017 MAXIME [facility] [employer] [employer] SPECIALIST Ot J45.909 UNSPECIFIED ASTHMA, UNCOMPLICATED 01/23/2017 MAXIME [facility] [employer] SPECIALIST Ot M19.90 UNSPECIFIED OSTEOARTHRITIS, UNSPECIFIED 01/23/2017 MAXIME [facility] [employer] SPECIALIST Ot R10.11 RIGHT UPPER QUADRANT PAIN 01/23/2017 MAXIME [facility] [employer] SPECIALIST Ot R10.31 RIGHT LOWER QUADRANT PAIN 01/23/2017 MAXIME [facility] [employer] SPECIALIST Ot Z85.05 PERSONAL HISTORY OF MALIGNANT NEOPLASM O 01/23/2017 MAXIME [facility] [employer] SPECIALIST Ot Z87.19 PERSONAL HISTORY OF OTHER DISEASES OF 01/23/2017 MAXIME [facility] [employer] SPECIALIST Ot Z94 .4 LIVER TRANSPLANT STATUS 01/26/2017 RAMESH STARR, PRISCILA Vieira Ot N18.3 CHRONIC KIDNEY DISEASE, STAGE 3 (MODERAT 01/30/2017 Ot V42.7 LIVE R TRANSPLANT STATUS 01/30/2017 Ot V58.44 AFT ERCARE FOLLOWING ORGAN TRANSPLANT 01/30/2017 Ot V58.69 OTH MED,LT,CURRENT USE 01/30/2017 Ot 571.5 CIRR HOSIS OF LIVER NOS 01/30/2017 Ot V42.7 LIVE R TRANSPLANT STATUS 01/30/2017 Ot 572.8 OTH SEQUELA, CHR LILIANA DIS 01/30/2017 Ot 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, STAGE III (MODER 01/30/2017 Ot 285.9 ANEM IA NOS 01/30/2017 Ot 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, STAGE III (MODER 01/30/2017 Ot 572.8 OTH SEQUELA, CHR LILIANA DIS 01/30/2017 Ot 572.8 OTH SEQUELA, CHR LILIANA DIS 01/30/2017 Ot 572.8 OTH SEQUELA, CHR LILIANA DIS 01/30/2017 Ot 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, STAGE III (MODER 01/30/2017 Ot 572.8 OTH SEQUELA, CHR LILIANA DIS 01/30/2017 Ot 572.8 OTH SEQUELA, CHR LILIANA DIS 01/30/2017 Ot 070.54 CHR ONIC HEPATITIS C W/O HEPATIC COMA 01/30/2017 Ot 285.9 ANEM IA NOS 01/30/2017 Ot 491.20 OBS TR CHRONIC BRONCHITIS, W/O EXACERBATI 01/30/2017 Ot 572.8 OTH SEQUELA, CHR LILIANA DIS 01/30/2017 Ot 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, UNSPECIFIED 01/30/2017 Ot V42.7 LIVE R TRANSPLANT STATUS 01/30/2017 Ot 572.8 OTH SEQUELA, CHR LILIANA DIS 01/30/2017 Ot 572.8 OTH SEQUELA, CHR LILIANA DIS 01/30/2017 Ot 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, UNSPECIFIED 01/30/2017 Ot 572.8 OTH SEQUELA, CHR LILIANA DIS 01/30/2017 Ot 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, UNSPECIFIED 01/30/2017 Ot 572.8 OTH SEQUELA, CHR LILIANA DIS 01/30/2017 Ot 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, STAGE III (MODER 01/30/2017 Ot 572.8 OTH SEQUELA, CHR LILIANA DIS 01/30/2017 Ot 572.8 OTH SEQUELA, CHR LILIANA DIS 01/30/2017 Ot 285.9 ANEM IA NOS 01/30/2017 Ot 496 CHR AI RWAY OBSTRUCT NEC 01/30/2017 Ot 572.8 OTH SEQUELA, [facility] DIS 01/30/2017 Ot 607.84 IMP OTENCE, ORGANIC ORIGN 01/30/2017 Ot 780.79 OTH MALAISE FATIGUE 01/30/2017 Ot V42.7 LIVE R TRANSPLANT STATUS 01/30/2017 Ot V58.69 OTH MED,LT,CURRENT USE 01/30/2017 Ot 572.8 OTH SEQUELA, [facility] DIS 01/30/2017 Ot 796.4 ABN CLINICAL FINDING NEC 01/30/2017 Ot V42.7 LIVE R TRANSPLANT STATUS 01/30/2017 Ot 572.8 OTH SEQUELA, [facility] DIS 01/30/2017 Ot 572.8 OTH SEQUELA, [facility] DIS 01/30/2017 Ot 572.8 OTH SEQUELA, [facility] DIS 01/30/2017 Ot 070.54 CHR ONIC HEPATITIS C W/O HEPATIC COMA 01/30/2017 Ot 572.8 OTH SEQUELA, [facility] DIS 01/30/2017 Ot 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, STAGE III (MODER 01/30/2017 Ot 572.8 OTH SEQUELA, CHR LILIANA DIS 01/30/2017 Ot 572.8 OTH SEQUELA, [facility] DIS 01/30/2017 Ot 572.8 OTH SEQUELA, [facility] DIS 01/30/2017 Ot 572.8 OTH SEQUELA, [facility] DIS 01/30/2017 Ot 572.8 OTH SEQUELA, [facility] DIS 01/30/2017 Ot 572.8 OTH SEQUELA, [facility] DIS 01/30/2017 Ot V42.7 LIVE R TRANSPLANT STATUS 01/30/2017 Ot 268.9 MEAGAN MIN D DEFICIENCY NOS 01/30/2017 Ot 281.1 B12 DEFIC ANEMIA NEC 01/30/2017 Ot 285.9 ANEM IA NOS 01/30/2017 Ot 491.21 OBS TR CHRONIC BRONCHITIS, W (ACUTE) EXAC 01/30/2017 Ot 572.8 OTH SEQUELA, [facility] DIS 01/30/2017 Ot 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, STAGE III (MODER 01/30/2017 Ot V42.7 LIVE R TRANSPLANT STATUS 01/30/2017 Ot V58.69 OTH MED,LT,CURRENT USE 01/30/2017 Ot 573.8 LIVE R DISORDERS NEC 01/30/2017 Ot 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 01/30/2017 Ot 721.3 LUMB OSACRAL SPONDYLOSIS 01/30/2017 Ot V58.69 OTH MED,LT,CURRENT USE 01/30/2017 Ot 572.8 OTH SEQUELA, CHR LILIANA DIS 01/30/2017 Ot V42.7 LIVE R TRANSPLANT STATUS 01/30/2017 Ot 572.8 OTH SEQUELA, CHR LILIANA DIS 01/30/2017 Ot 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, STAGE III (MODER 01/30/2017 Ot 572.8 OTH SEQUELA, CHR LILIANA DIS 01/30/2017 Ot 572.8 OTH SEQUELA, CHR LILIANA DIS 01/30/2017 Ot 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, STAGE III (MODER 01/30/2017 Ot 572.8 OTH SEQUELA, CHR LILIANA DIS 01/30/2017 Ot 268.9 MEAGAN MIN D DEFICIENCY NOS 01/30/2017 Ot 275.2 DIS MAGNESIUM METABOLISM 01/30/2017 Ot 572.8 OTH SEQUELA, CHR LILIANA DIS 01/30/2017 Ot 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, STAGE III (MODER 01/30/2017 Ot V42.7 LIVE R TRANSPLANT STATUS 01/30/2017 Ot V58.69 OTH MED,LT,CURRENT USE 01/30/2017 Ot 573.8 LIVE R DISORDERS NEC 01/30/2017 Ot 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 01/30/2017 Ot 789.09 ABD OMINAL PAIN, OTHER SPECIFIED SITE 01/30/2017 RAMESH STARR, PRISCILA Vieira Ot 285.9 ANEMIA NOS 01/30/2017 RAMESH STARR, PRISCILA Vieira Ot 572.8 OTH SEQUELA, CHR LILIANA DIS 01/30/2017 RAMESH STARR, PRISCILA [place] Ot 585.9 CHRONIC KIDNEY DISEASE, UNSPECIFIED 01/30/2017 EDUARDO PALACIO Ot 572.8 OTH SEQUELA, CHR LILIANA DIS 01/30/2017 EDUARDO PALACIO Ot 585.9 CHRONIC KIDNEY DISEASE, UNSPECIFIED 01/30/2017 RAMESH STARR, PRISCILA Vieira Ot 285.9 ANEMIA NOS 01/30/2017 PRISCILA CHANDLER [...] DEFICIENCY NOS 01/30/2017 PRISCILA CHANDLER MD Ot V42.7 LIVER TRANSPLANT STATUS 01/30/2017 MARIA LUISA STARR, MICHAEL Joel Ot 780.7 9 OTH MALAISE FATIGUE 01/30/2017 PRISCILA CHANDLER MD Ot 585.3 CHRONIC KIDNEY DISEASE, STAGE III (MODER 01/30/2017 MARIA LUISA STARR, MICHAEL Joel Ot 719.0 6 JOINT EFFUSION-L/LEG 01/30/2017 MARIA LUISA STARR, MICHAEL Joel Ot 719.4 7 JOINT PAIN-ANKLE 01/30/2017 TEREZA BRADEN MD Ot V42.7 LIVER TRANSPLANT STATUS 01/30/2017 TEREZA BRADEN MD Ot V58.4 4 AFTERCARE FOLLOWING ORGAN TRANSPLANT 01/30/2017 PRISCILA CHANDLER MD Ot 268.9 VITAMIN D DEFICIENCY NOS 01/30/2017 PRISCILA CHANDLER MD Ot 276.8 HYPOPOTASSEMIA 01/30/2017 PRISCILA CHANDLER MD Ot 585.3 CHRONIC KIDNEY DISEASE, STAGE III (MODER 01/30/2017 PRISCILA CHANDLER MD Ot 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 01/30/2017 MARIA LUISA STARR, MICHAEL Joel Ot 275.4 1 HYPOCALCEMIA 01/30/2017 MARIA LUISA STARR, MICHAEL Joel Ot 276.9 ELECTROLYT/FLUID DIS NEC 01/30/2017 MARIA LUISA STARR, MICHAEL Joel Ot 427.8 9 CARDIAC DYSRHYTHMIAS NEC 01/30/2017 TEREZA BRADEN MD Ot 572.8 OTH SEQUELA, CHR LILIANA DIS 01/30/2017 TEREZA BRADEN MD Ot 585.3 CHRONIC KIDNEY DISEASE, STAGE III (MODER 01/30/2017 TEREZA BRADEN MD Ot 790.6 ABN BLOOD CHEMISTRY NEC 01/30/2017 LOYDA DOMINGUEZ MD Ot 427. 9 CARDIAC DYSRHYTHMIA NOS 01/30/2017 LOYDA DOMINGUEZ MD Ot 585. 9 CHRONIC KIDNEY DISEASE, UNSPECIFIED 01/30/2017 LOYDA DOMINGUEZ MD Ot V15. 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 01/30/2017 Ot 427.9 CARD IAC DYSRHYTHMIA NOS 01/30/2017 Ot 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, UNSPECIFIED 01/30/2017 Ot 790.29 OTH ER ABNORMAL GLUCOSE 01/30/2017 Ot V15.81 HX OF [...] DISEASE, STAGE III (MODER 01/30/2017 Ot 338.29 OTH ER CHRONIC PAIN 01/30/2017 Ot 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 01/30/2017 Ot 729.82 MONOTYPE CASTER MP IN LIMB 01/30/2017 Ot V58.69 OTH MED,LT,CURRENT USE 01/30/2017 Ot 268.9 MEAGAN MIN D DEFICIENCY NOS 01/30/2017 Ot 275.2 DIS MAGNESIUM METABOLISM 01/30/2017 Ot 403.90 HYP TNSV CHR KID DIS, UNSPEC, W CHR KD ST 01/30/2017 Ot 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, STAGE III (MODER 01/30/2017 MARIA LUISA STARR, MICHAEL Joel Ot 729.8 2 CRAMP IN LIMB 01/30/2017 MARIA LUISA STARR, MICHAEL Joel Ot 780.6 0 FEVER, UNSPECIFIED 01/30/2017 MICHAEL GLASS MD Ot V58.6 9 OTH MED,LT,CURRENT USE 01/30/2017 TEREZA BRADEN MD Ot 571.5 CIRRHOSIS OF LIVER NOS 01/30/2017 ETREZA BRADEN MD Ot V42.7 LIVER TRANSPLANT STATUS 01/30/2017 MICHAEL GLASS MD Ot 573.9 LIVER DISORDER NOS 01/30/2017 MICHAEL GLASS MD Ot 780.6 0 FEVER, UNSPECIFIED 01/30/2017 MICHAEL GLASS MD Ot V42.7 LIVER TRANSPLANT STATUS 01/30/2017 EDUARDO PALACIO Ot 268.9 VITAMIN D DEFICIENCY NOS 01/30/2017 EDUARDO PALACIO Ot 272.4 HYPERLIPIDEMIA NEC/NOS 01/30/2017 EDUARDO PALACIO Ot V42.7 LIVER TRANSPLANT STATUS 01/30/2017 EDUARDO PALACIO Ot V58.69 OTH MED,LT,CURRENT USE 01/30/2017 MARIA LUISA STARR, MICHAEL Joel Ot F17.2 10 NICOTINE DEPENDENCE, CIGARETTES, UNCOMPL 01/30/2017 MARIA LUISA STARR, MICHAEL Joel Ot R05 COUGH 01/30/2017 MICHAEL GLASS MD Ot R10.9 UNSPECIFIED ABDOMINAL PAIN 01/30/2017 MICHAEL GLASS MD Ot R91.1 SOLITARY PULMONARY NODULE 01/30/2017 MARJAN STANLEY DO Ot B49 UNSPECIFIED MYCOSIS 01/30/2017 MARJAN STANLEY DO Ot R91.8 OTHER NONSPECIFIC ABNORMAL FINDING OF BRENT 01/30/2017 MARJAN STANLEY DO Ot Z94.4 LIVER TRANSPLANT STATUS 01/30/2017 KIMBERLEY HILL DO Ot J44. 9 CHRONIC OBSTRUCTIVE PULMONARY DISEASE, U 01/30/2017 KIMBERLEY HILL DO Ot R91. 8 OTHER NONSPECIFIC ABNORMAL FINDING OF BRENT 01/30/2017 PRISCILA CHANDLER MD Ot E55.9 VITAMIN D DEFICIENCY, UNSPECIFIED 01/30/2017 PRISCILA CHANDLER MD Ot E83.42 HYPOMAGNESEMIA 01/30/2017 RAMESH STARR, PRISCILA Vieira Ot K72.90 HEPATIC FAILURE, UNSPECIFIED WITHOUT COM 01/30/2017 PRISCILA CHANDLER MD Ot N18.3 CHRONIC KIDNEY DISEASE, STAGE 3 (MODERAT 01/30/2017 TEREZA BRADEN MD Ot K74.6 0 UNSPECIFIED CIRRHOSIS OF LIVER 01/30/2017 Ot Z51.81 ENC OUNTER FOR THERAPEUTIC DRUG LEVEL MON 01/30/2017 Ot Z79.899 OT HER CORRECTION (CURRENT) DRUG THERAPY 01/30/2017 Ot Z94.4 LIVE R TRANSPLANT STATUS 01/30/2017 MARIA LUISA STARR, MICHAEL Joel Ot K72.9 0 HEPATIC FAILURE, UNSPECIFIED WITHOUT COM 01/30/2017 TEREZA BRADEN MD Ot K74.6 0 UNSPECIFIED CIRRHOSIS OF LIVER 01/30/2017 EMELIA LOZOYA [employer] SPECIALIST Ot F17.200 NICOTINE DEPENDENCE, UNSPECIFIED, UNCOMP 01/30/2017 EMELIA LOZOYA E [employer] SPECIALIST Ot J44.9 CHRONIC OBSTRUCTIVE PULMONARY DISEASE, U 01/30/2017 EMELIA LOZOYA E [employer] SPECIALIST Ot F17.200 NICOTINE DEPENDENCE, UNSPECIFIED, UNCOMP 01/30/2017 EMELIA [employer] [employer] SPECIALIST Ot J44.9 CHRONIC OBSTRUCTIVE PULMONARY DISEASE, U 01/30/2017 EMELIA [employer] [employer] SPECIALIST Ot R91.8 OTHER NONSPECIFIC ABNORMAL FINDING OF BRENT 01/30/2017 TEREZA BRADEN MD Ot K74.6 0 UNSPECIFIED CIRRHOSIS OF LIVER 01/30/2017 TEREZA BRADEN MD Ot E83.4 2 HYPOMAGNESEMIA 01/30/2017 TEREZA BRADEN MD Ot Z94.4 LIVER TRANSPLANT STATUS 01/30/2017 PRISCILA CHANDLER MD Ot E55.9 VITAMIN D DEFICIENCY, UNSPECIFIED 01/30/2017 PRISCILA CHANDLER MD Ot E83.42 HYPOMAGNESEMIA 01/30/2017 PRISCILA CHANDLER MD Ot J20.9 ACUTE BRONCHITIS, UNSPECIFIED 01/30/2017 PRISCILA CHANDLER MD Ot N18.3 CHRONIC KIDNEY DISEASE, STAGE 3 (MODERAT 01/30/2017 TEREZA BRADEN MD Ot K74.6 0 UNSPECIFIED CIRRHOSIS OF LIVER 01/30/2017 PRISCILA CHANDLER MD Ot N18.3 CHRONIC [...] 3 (MODERAT 03/06/2017 TEREZA BRADEN MD Ot K74.6 0 UNSPECIFIED CIRRHOSIS OF LIVER 03/06/2017 TEREZA BRADEN MD Ot K74.6 0 UNSPECIFIED CIRRHOSIS OF LIVER 03/06/2017 TEREZA BRADEN MD Ot K74.6 0 UNSPECIFIED CIRRHOSIS OF LIVER 03/06/2017 RAMESH STARR, PRISCILA B Ot N18.3 CHRONIC KIDNEY DISEASE, STAGE 3 (MODERAT 03/20/2017 PRISCILA CHANDLER MD Ot N18.3 CHRONIC KIDNEY [...] DISEASE W ST 03/29/2017 PRISCILA CHANDLER MD B Ot N18.3 CHRONIC KIDNEY DISEASE, STAGE 3 (MODERAT 03/29/2017 PRISCILA CHANDLER MD Ot R80.8 OTHER PROTEINURIA 03/29/2017 RAMÍREZ MCNEAL MD Ot A41 .9 SEPSIS, UNSPECIFIED ORGANISM 03/29/2017 RAMÍREZ MCNEAL MD Ot F17.210 NICOTINE DEPENDENCE, CIGARETTES, UNCOMPL 03/29/2017 RAMÍREZ MCNEAL MD Ot F32 .9 MAJOR DEPRESSIVE DISORDER, SINGLE EPISOD 03/29/2017 RAMÍREZ MCNEAL MD Ot F41 .9 ANXIETY DISORDER, UNSPECIFIED 03/29/2017 RAMÍREZ MCNEAL MD Ot G89.29 OTHER CHRONIC PAIN 03/29/2017 RAMÍREZ MCNEAL MD Ot I12 .9 HYPERTENSIVE CHRONIC KIDNEY DISEASE W ST 03/29/2017 RAMÍREZ MCNEAL MD Ot J43 .2 CENTRILOBULAR EMPHYSEMA 03/29/2017 RAMÍREZ MCNEAL MD Ot J69 .0 PNEUMONITIS DUE TO INHALATION OF FOOD AN 03/29/2017 RAMÍREZ MCNEAL MD Ot K72.90 HEPATIC FAILURE, UNSPECIFIED WITHOUT COM 03/29/2017 RAMÍREZ MCNEAL MD Ot N18 .9 CHRONIC KIDNEY DISEASE, UNSPECIFIED 03/29/2017 RAMÍREZ MCNEAL MD Ot R00 .1 BRADYCARDIA, UNSPECIFIED 03/29/2017 RAMÍREZ MCNEAL MD Ot Z94 .4 LIVER TRANSPLANT STATUS 03/31/2017 TEREZA BRADEN MD Ot K74.6 0 UNSPECIFIED CIRRHOSIS OF LIVER 04/04/2017 PRISCILA CHANDLER MD Ot E55.9 VITAMIN D DEFICIENCY, UNSPECIFIED 04/04/2017 PRISCILA CHANDLER MD Ot I12.9 HYPERTENSIVE CHRONIC KIDNEY DISEASE W ST 04/04/2017 PRISCILA CHANDLER MD Ot N18.3 CHRONIC KIDNEY DISEASE, STAGE 3 (MODERAT 04/04/2017 PRISCILA CHANDLER MD Ot R80.8 OTHER PROTEINURIA 04/04/2017 TEREZA BRADEN MD Ot K74.6 0 UNSPECIFIED CIRRHOSIS OF LIVER 04/08/2017 Ot 572.8 OTH SEQUELA, CHR LILIANA DIS 04/08/2017 Ot 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 8 ANEMIA IN OTHER CHRONIC DISEASES CLASSIF 07/16/2017 HELGA COREAS MD Ot E83. 31 FAMILIAL HYPOPHOSPHATEMIA 07/16/2017 HELGA COREAS MD Ot E83. 42 HYPOMAGNESEMIA 07/16/2017 HELGA COREAS MD Ot F17.210 NICOTINE DEPENDENCE, CIGARETTES, UNCOMPL 07/16/2017 HELGA COREAS MD Ot F32. 9 MAJOR DEPRESSIVE DISORDER, SINGLE EPISOD 07/16/2017 HELGA COREAS MD J Ot F41. 9 ANXIETY DISORDER, UNSPECIFIED 07/16/2017 HELGA COREAS MD Ot J43. 9 EMPHYSEMA, UNSPECIFIED 07/16/2017 HELGA COREAS MD J Ot K72. 90 HEPATIC FAILURE, UNSPECIFIED WITHOUT COM 07/16/2017 HELGA COREAS MD J Ot N18. 9 CHRONIC KIDNEY DISEASE, UNSPECIFIED 07/16/2017 HELGA COREAS MD J Ot R41. 0 DISORIENTATION, UNSPECIFIED 07/16/2017 MJ COREAS MDUS J Ot Z85. 05 PERSONAL HISTORY OF MALIGNANT NEOPLASM O 07/16/2017 HELGA COREAS MD J Ot Z87. 19 PERSONAL HISTORY OF OTHER DISEASES OF 07/16/2017 HELGA COREAS MD J Ot Z94. 4 LIVER TRANSPLANT STATUS 07/18/2017 HELGA COREAS MD J Ot D63. 8 ANEMIA IN OTHER CHRONIC DISEASES CLASSIF 07/18/2017 HELGA COREAS MD J Ot E83. 31 FAMILIAL HYPOPHOSPHATEMIA 07/18/2017 HELGA COREAS MD J Ot E83. 42 HYPOMAGNESEMIA 07/18/2017 HELGA COREAS MD Ot F17.210 NICOTINE DEPENDENCE, CIGARETTES, UNCOMPL 07/18/2017 HELGA COREAS MD Ot F32. 9 MAJOR DEPRESSIVE DISORDER, SINGLE EPISOD 07/18/2017 HELGA COREAS MD Ot F41. 9 ANXIETY DISORDER, UNSPECIFIED 07/18/2017 HELGA COREAS MD Ot J43. 9 EMPHYSEMA, UNSPECIFIED 07/18/2017 HELGA COREAS MD J Ot K72. 90 HEPATIC FAILURE, UNSPECIFIED WITHOUT COM 07/18/2017 HELGA COREAS MD J Ot N18. 9 CHRONIC KIDNEY DISEASE, UNSPECIFIED 07/18/2017 HELGA COREAS MD J Ot R41. 0 DISORIENTATION, UNSPECIFIED 07/18/2017 HELGA COREAS MD J Ot Z85. 05 PERSONAL HISTORY OF MALIGNANT NEOPLASM O 07/18/2017 HELGA COREAS MD J Ot Z87. 19 PERSONAL HISTORY OF OTHER DISEASES OF TH 07/18/2017 HELGA COREAS MD J Ot Z94. 4 LIVER TRANSPLANT STATUS 07/18/2017 HELGA COREAS MD J Ot D63. 8 ANEMIA IN OTHER CHRONIC DISEASES CLASSIF 07/18/2017 HELGA COREAS MD Ot E83. 31 FAMILIAL HYPOPHOSPHATEMIA 07/18/2017 HELGA COREAS MD Ot E83. 42 HYPOMAGNESEMIA 07/18/2017 HELGA COREAS MD J Ot F17.210 NICOTINE DEPENDENCE, CIGARETTES, UNCOMPL 07/18/2017 HELGA COREAS MD J Ot F32. 9 MAJOR DEPRESSIVE DISORDER, SINGLE EPISOD 07/18/2017 HELGA COREAS MD J Ot F41. 9 ANXIETY DISORDER, UNSPECIFIED 07/18/2017 HELGA COREAS MD J Ot J43. 9 EMPHYSEMA, UNSPECIFIED 07/18/2017 MJ COREAS MDUS J Ot K72. 90 HEPATIC FAILURE, UNSPECIFIED WITHOUT COM 07/18/2017 HELGA COREAS MD J Ot N18. 9 CHRONIC KIDNEY DISEASE, UNSPECIFIED 07/18/2017 HELGA COREAS MD J Ot R41. 0 DISORIENTATION, UNSPECIFIED 07/18/2017 HELGA COREAS MD J Ot Z85. 05 PERSONAL HISTORY OF MALIGNANT NEOPLASM O 07/18/2017 HELGA COREAS MD J Ot Z87. 19 PERSONAL HISTORY OF OTHER DISEASES OF TH 07/18/2017 HELGA COREAS MD Ot Z94. 4 LIVER TRANSPLANT STATUS 07/22/2017 HELGA COREAS MD Ot D63. 8 ANEMIA IN OTHER CHRONIC DISEASES CLASSIF 07/22/2017 HELGA COREAS MD Ot E83. 31 FAMILIAL HYPOPHOSPHATEMIA 07/22/2017 HELGA COREAS MD Ot E83. 42 HYPOMAGNESEMIA 07/22/2017 HELGA COREAS MD Ot F17.210 NICOTINE DEPENDENCE, CIGARETTES, UNCOMPL 07/22/2017 HELGA COREAS MD Ot F32. 9 MAJOR DEPRESSIVE DISORDER, SINGLE EPISOD 07/22/2017 HELGA COREAS MD Ot F41. 9 ANXIETY DISORDER, UNSPECIFIED 07/22/2017 HELGA COREAS MD J Ot J43. 9 EMPHYSEMA, UNSPECIFIED 07/22/2017 MJ COREAS MDUS J Ot K72. 90 HEPATIC FAILURE, UNSPECIFIED WITHOUT COM 07/22/2017 HELGA COREAS MD J Ot N18. 9 CHRONIC KIDNEY DISEASE, UNSPECIFIED 07/22/2017 HELGA COREAS MD J Ot R41. 0 DISORIENTATION, UNSPECIFIED 07/22/2017 JOSS STARR, HELGA Joel Ot Z85. 05 PERSONAL HISTORY OF MALIGNANT NEOPLASM O 07/22/2017 JOSS STARR, HELGA Joel Ot Z87. 19 PERSONAL HISTORY OF OTHER DISEASES OF TH 07/22/2017 JOSS STARR, HELGA Joel Ot Z94. 4 LIVER TRANSPLANT STATUS 08/02/2017 RAMESH STARR, PRISCILA Vieira Ot N18.3 CHRONIC KIDNEY DISEASE, STAGE 3 (MODERAT 08/08/2017 PRISCILA CHANDLER MD Ot I12.9 HYPERTENSIVE CHRONIC KIDNEY DISEASE W ST 08/08/2017 PRISCILA CHANDLER MD Ot N18.3 CHRONIC KIDNEY DISEASE, STAGE 3 (MODERAT 08/08/2017 PRISCILA CHANDLER MD Ot Z94.4 LIVER TRANSPLANT STATUS 08/13/2017 Ot V42.7 LIVE R TRANSPLANT STATUS 08/13/2017 Ot V58.44 AFT ERCARE FOLLOWING ORGAN TRANSPLANT 08/13/2017 Ot V58.69 OTH MED,LT,CURRENT USE 08/13/2017 Ot 572.8 OTH SEQUELA, CHR LILIANA DIS 08/13/2017 Ot 796.4 ABN CLINICAL FINDING NEC 08/13/2017 Ot V42.7 LIVE R TRANSPLANT STATUS 08/13/2017 Ot 572.8 OTH SEQUELA, CHR LILIANA DIS 08/13/2017 Ot 572.8 OTH SEQUELA, CHR LILIANA DIS 08/13/2017 Ot 572.8 OTH SEQUELA, CHR LILIANA DIS 08/13/2017 Ot 070.54 CHR ONIC HEPATITIS C W/O HEPATIC COMA 08/13/2017 Ot 572.8 OTH SEQUELA, CHR LILIANA DIS 08/13/2017 Ot 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, STAGE III (MODER 08/13/2017 Ot 572.8 OTH SEQUELA, CHR LILIANA DIS 08/13/2017 Ot 572.8 OTH SEQUELA, CHR LILIANA DIS 08/13/2017 Ot 572.8 OTH SEQUELA, CHR LILIANA DIS 08/13/2017 Ot 572.8 OTH SEQUELA, CHR LILIANA DIS 08/13/2017 Ot 572.8 OTH SEQUELA, CHR LILIANA DIS 08/13/2017 Ot 572.8 OTH SEQUELA, CHR LILIANA DIS 08/13/2017 Ot V42.7 LIVE R TRANSPLANT STATUS 08/13/2017 Ot 268.9 MEAGAN MIN D DEFICIENCY NOS 08/13/2017 Ot 281.1 B12 DEFIC ANEMIA NEC 08/13/2017 Ot 285.9 ANEM IA NOS 08/13/2017 Ot 491.21 OBS TR CHRONIC BRONCHITIS, W (ACUTE) EXAC 08/13/2017 Ot 572.8 OTH SEQUELA, CHR LILIANA DIS 08/13/2017 Ot 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, STAGE III (MODER 08/13/2017 Ot V42.7 LIVE R TRANSPLANT STATUS 08/13/2017 Ot V58.69 OTH MED,LT,CURRENT USE 08/13/2017 Ot 573.8 LIVE R DISORDERS NEC 08/13/2017 Ot 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 08/13/2017 Ot 721.3 LUMB OSACRAL SPONDYLOSIS 08/13/2017 Ot V58.69 OTH MED,LT,CURRENT USE 08/13/2017 Ot 572.8 OTH SEQUELA, CHR LILIANA DIS 08/13/2017 Ot V42.7 LIVE R TRANSPLANT STATUS 08/13/2017 Ot 572.8 OTH SEQUELA, CHR LILIANA DIS 08/13/2017 Ot 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, STAGE III (MODER 08/13/2017 Ot 572.8 OTH SEQUELA, CHR LILIANA DIS 08/13/2017 Ot 572.8 OTH SEQUELA, CHR LILIANA DIS 08/13/2017 Ot 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, STAGE III (MODER 08/13/2017 Ot 572.8 OTH SEQUELA, CHR LILIANA DIS 08/13/2017 Ot 268.9 MEAGAN MIN D DEFICIENCY NOS 08/13/2017 Ot 275.2 DIS MAGNESIUM METABOLISM 08/13/2017 Ot 572.8 OTH SEQUELA, CHR LILIANA DIS 08/13/2017 Ot 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, STAGE III (MODER 08/13/2017 Ot V42.7 LIVE R TRANSPLANT STATUS 08/13/2017 Ot V58.69 OTH MED,LT,CURRENT USE 08/13/2017 Ot 573.8 LIVE R DISORDERS NEC 08/13/2017 Ot 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 08/13/2017 Ot 789.09 ABD OMINAL PAIN, OTHER SPECIFIED SITE 08/13/2017 RAMESH STARR, PRISCILA [place] Ot 285.9 ANEMIA NOS 08/13/2017 RAMESH STARR, PRISCILA [place] Ot 572.8 OTH SEQUELA, CHR LILIANA DIS 08/13/2017 RAMESH STARR, PRISCILA [place] Ot 585.9 CHRONIC KIDNEY DISEASE, UNSPECIFIED 08/13/2017 EDUARDO PALACIO Ot 572.8 OTH SEQUELA, CHR LILIANA DIS 08/13/2017 EDUARDO PALACIO Ot 585.9 CHRONIC KIDNEY DISEASE, UNSPECIFIED 08/13/2017 RAMESH STARR, PRISCILA [place] Ot 285.9 ANEMIA NOS 08/13/2017 RAMESH STARR, PRISCILA [place] Ot 572.8 OTH SEQUELA, CHR LILIANA DIS 08/13/2017 PRISCILA CHANDLER MD Ot 585.9 CHRONIC KIDNEY DISEASE, UNSPECIFIED 08/13/2017 EDUARDO PALACIO Ot 572.8 OTH SEQUELA, CHR LILIANA DIS 08/13/2017 TEREZA BRADEN MD Ot 572.8 OTH SEQUELA, [facility] LILIANA DIS 08/13/2017 TEREZA BRADEN MD Ot 585.3 CHRONIC KIDNEY DISEASE, STAGE III (MODER 08/13/2017 PRISCILA CHANDLER MD Ot 268.9 VITAMIN D DEFICIENCY NOS 08/13/2017 PRISCILA CHANDLER MD Ot V42.7 LIVER TRANSPLANT STATUS 08/13/2017 MARIA LUISA STARR, MICHAEL Joel Ot 780.7 9 OTH MALAISE FATIGUE 08/13/2017 PRISCILA CHANDLER MD Ot 585.3 CHRONIC KIDNEY DISEASE, STAGE III (MODER 08/13/2017 MARIA LUISA STARR, MICHAEL Joel Ot 719.0 6 JOINT EFFUSION-L/LEG 08/13/2017 MARIA LUISA STARR, MICHAEL Joel Ot 719.4 7 JOINT PAIN-ANKLE 08/13/2017 TEREZA BRADEN MD Ot V42.7 LIVER TRANSPLANT STATUS 08/13/2017 TEREZA BRADEN MD Ot V58.4 4 AFTERCARE FOLLOWING ORGAN TRANSPLANT 08/13/2017 PRISCILA CHANDLER MD Ot 268.9 VITAMIN D DEFICIENCY NOS 08/13/2017 RAMESH STARR, PRISCILA B Ot 276.8 HYPOPOTASSEMIA 08/13/2017 PRISCILA CHANDLER MD Ot 585.3 CHRONIC KIDNEY DISEASE, STAGE III (MODER 08/13/2017 PRISCILA CHANDLER MD Ot 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 9 CARDIAC DYSRHYTHMIA NOS 08/13/2017 LOYDA DOMINGUEZ MD Ot 585. 9 CHRONIC KIDNEY DISEASE, UNSPECIFIED 08/13/2017 LOYDA DOMINGUEZ MD Ot V15. 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 08/13/2017 Ot 427.9 CARD IAC DYSRHYTHMIA NOS 08/13/2017 Ot 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, UNSPECIFIED 08/13/2017 Ot 790.29 OTH ER ABNORMAL GLUCOSE 08/13/2017 Ot V15.81 HX OF PAST NONCOMPLIANCE 08/13/2017 PRISCILA CHANDLER MD Ot 268.9 VITAMIN D DEFICIENCY NOS 08/13/2017 PRISCILA CHANDLER MD Ot 275.2 DIS MAGNESIUM METABOLISM 08/13/2017 PRISCILA CHANDLER MD Ot 585.3 CHRONIC KIDNEY DISEASE, STAGE III (MODER 08/13/2017 PRISCILA CHANDLER MD Ot 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 08/13/2017 PRISCILA CHANDLER MD Ot 268.9 VITAMIN D DEFICIENCY NOS 08/13/2017 PRISCILA CHANDLER MD Ot 275.2 DIS MAGNESIUM METABOLISM 08/13/2017 RAMESH STARR, PRISCILA B Ot 585.3 CHRONIC KIDNEY DISEASE, STAGE III (MODER 08/13/2017 Ot 338.29 OTH ER CHRONIC PAIN 08/13/2017 Ot 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 08/13/2017 Ot 729.82 MONOTYPE CASTER MP IN LIMB 08/13/2017 Ot V58.69 OTH MED,LT,CURRENT USE 08/13/2017 Ot 268.9 MEAGAN MIN D DEFICIENCY NOS 08/13/2017 Ot 275.2 DIS MAGNESIUM METABOLISM 08/13/2017 Ot 403.90 HYP TNSV CHR KID DIS, UNSPEC, W CHR KD ST 08/13/2017 Ot 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, STAGE III (MODER 08/13/2017 MARIA LUISA STARR, MICHAEL Joel Ot 729.8 2 CRAMP IN LIMB 08/13/2017 MARIA LUISA STARR, MICHAEL Joel Ot 780.6 0 FEVER, UNSPECIFIED 08/13/2017 MICHAEL GLASS MD Ot V58.6 9 OTH MED,LT,CURRENT USE 08/13/2017 TEREZA BRADEN MD Ot 571.5 CIRRHOSIS OF LIVER NOS 08/13/2017 TEREZA BRADEN MD Ot V42.7 LIVER TRANSPLANT STATUS 08/13/2017 MICHAEL GLASS MD Ot 573.9 LIVER DISORDER NOS 08/13/2017 MICHAEL GLASS MD Ot 780.6 0 FEVER, UNSPECIFIED 08/13/2017 MICHAEL GLASS MD Ot V42.7 LIVER TRANSPLANT STATUS 08/13/2017 EDUARDO PALACIO Ot 268.9 VITAMIN D DEFICIENCY NOS 08/13/2017 EDUARDO PALACIO Ot 272.4 HYPERLIPIDEMIA NEC/NOS 08/13/2017 EDUARDO PALACIO Ot V42.7 LIVER TRANSPLANT STATUS 08/13/2017 EDUARDO PALACIO Ot V58.69 OTH MED,LT,CURRENT USE 08/13/2017 MICHAEL GLASS MD Ot F17.2 10 NICOTINE DEPENDENCE, CIGARETTES, UNCOMPL 08/13/2017 MICHAEL GLASS MD Ot R05 COUGH 08/13/2017 MICHAEL GLASS MD Ot R10.9 UNSPECIFIED ABDOMINAL PAIN 08/13/2017 MICHAEL GLASS MD Ot R91.1 SOLITARY PULMONARY NODULE 08/13/2017 MARJAN STANLEY DO Ot B49 UNSPECIFIED MYCOSIS 08/13/2017 MARJAN STANLEY DO Ot R91.8 OTHER NONSPECIFIC ABNORMAL FINDING OF BRENT 08/13/2017 STANLEYCHIO LIN DOI Ot Z94.4 LIVER TRANSPLANT STATUS 08/13/2017 KIMBERLEY HILL DO Ot J44. 9 CHRONIC OBSTRUCTIVE PULMONARY DISEASE, U 08/13/2017 KIMBERLEY HILL DO Ot R91. 8 OTHER NONSPECIFIC ABNORMAL FINDING OF BRENT 08/13/2017 PRISCILA CHANDLER MD Ot E55.9 VITAMIN D DEFICIENCY, UNSPECIFIED 08/13/2017 PRISCILA CHANDLER MD Ot E83.42 HYPOMAGNESEMIA 08/13/2017 PRISCILA CHANDLER MD Ot K72.90 HEPATIC FAILURE, UNSPECIFIED WITHOUT COM 08/13/2017 PRISCILA CHANDLER MD Ot N18.3 CHRONIC KIDNEY DISEASE, STAGE 3 (MODERAT 08/13/2017 TEREZA BRADEN MD Ot K74.6 0 UNSPECIFIED CIRRHOSIS OF LIVER 08/13/2017 Ot Z51.81 ENC OUNTER FOR THERAPEUTIC DRUG LEVEL MON 08/13/2017 Ot Z79.899 OT HER CORRECTION (CURRENT) DRUG THERAPY 08/13/2017 Ot Z94.4 LIVE R TRANSPLANT STATUS 08/13/2017 MICHAEL GLASS MD Ot K72.9 0 HEPATIC FAILURE, UNSPECIFIED WITHOUT COM 08/13/2017 TEREZA BRADEN MD Ot K74.6 0 UNSPECIFIED CIRRHOSIS OF LIVER 08/13/2017 PHYLLIS LOZOYAINE [employer] SPECIALIST Ot F17.200 NICOTINE DEPENDENCE, UNSPECIFIED, UNCOMP 08/13/2017 PHYLLIS LOZOYAINE E REGIONAL FACILITIES SPECIALIST Ot J44.9 CHRONIC OBSTRUCTIVE PULMONARY DISEASE, U 08/13/2017 PHYLLIS LOZOYAINE [employer] SPECIALIST Ot F17.200 NICOTINE DEPENDENCE, UNSPECIFIED, UNCOMP 08/13/2017 EMELIA LOZOYA REG[employer] FACILITIES SPECIALIST Ot J44.9 CHRONIC OBSTRUCTIVE PULMONARY DISEASE, U 08/13/2017 EMELIA LOZOYA REGION[employer] FACILITIES SPECIALIST Ot R91.8 OTHER NONSPECIFIC ABNORMAL FINDING OF BRENT 08/13/2017 TEREZA BRADEN MD Ot K74.6 0 UNSPECIFIED CIRRHOSIS OF LIVER 08/13/2017 TEREZA BRADEN MD Ot E83.4 2 HYPOMAGNESEMIA 08/13/2017 TEREZA BRADEN MD Ot Z94.4 LIVER TRANSPLANT STATUS 08/13/2017 RAMESH MD, PRISCILA B Ot E55.9 VITAMIN D DEFICIENCY, UNSPECIFIED 08/13/2017 RAMESH STARR, PRISCILA B Ot E83.42 HYPOMAGNESEMIA 08/13/2017 RAMESH STARR, PRISCILA Vieira Ot J20.9 ACUTE BRONCHITIS, UNSPECIFIED 08/13/2017 RAMESH STARR, PRISCILA B Ot N18.3 CHRONIC KIDNEY DISEASE, STAGE 3 (MODERAT 08/13/2017 ASIYA STARR, TEREZA Mathew Ot K74.6 0 UNSPECIFIED CIRRHOSIS OF LIVER 08/13/2017 PRISCILA CHANDLER MD B Ot N18.3 CHRONIC KIDNEY DISEASE, STAGE 3 (MODERAT 08/13/2017 PRISCILA CHANDLER MD B Ot N18.3 CHRONIC KIDNEY DISEASE, STAGE 3 (MODERAT 08/13/2017 TEREZA BRADEN MD Ot K74.6 0 UNSPECIFIED CIRRHOSIS OF LIVER 08/13/2017 PRISCILA CHANDLER MD B Ot N18.3 CHRONIC KIDNEY DISEASE, STAGE 3 (MODERAT 08/13/2017 PRISCILA CHANDLER MD Ot N18.3 CHRONIC KIDNEY DISEASE, STAGE 3 (MODERAT 08/13/2017 TEREZA BRADEN MD Ot K74.6 0 UNSPECIFIED CIRRHOSIS OF LIVER 08/13/2017 PRISCILA CHANDLER MD Ot I12.9 HYPERTENSIVE CHRONIC KIDNEY DISEASE W ST 08/13/2017 PRISCILA CHANDLER MD Ot N18.3 CHRONIC KIDNEY DISEASE, STAGE 3 (MODERAT 08/13/2017 PRISCILA CHANDLER MD B Ot R80.8 OTHER PROTEINURIA 08/13/2017 PRISCILA CHANDLER MD Ot Z94.4 LIVER TRANSPLANT STATUS 08/13/2017 PRISCILA CHANDLER MD Ot E55.9 VITAMIN D DEFICIENCY, UNSPECIFIED 08/13/2017 PRISCILA CHANDLER MD B Ot I12.9 HYPERTENSIVE CHRONIC KIDNEY DISEASE W ST 08/13/2017 PRISCILA CHANDLER MD B Ot N18.3 CHRONIC KIDNEY DISEASE, STAGE 3 (MODERAT 08/13/2017 PRISCILA CHANDLER MD B Ot R80.8 OTHER PROTEINURIA 08/13/2017 TEREZA BRADEN MD Ot K74.6 0 UNSPECIFIED CIRRHOSIS OF LIVER 08/13/2017 PRISCILA CHANDLER MD B Ot N18.3 CHRONIC KIDNEY DISEASE, STAGE 3 (MODERAT 08/13/2017 PRISCILA CHANDLER MD B Ot I12.9 HYPERTENSIVE CHRONIC KIDNEY DISEASE W ST 08/13/2017 RAMESH STARR, PRISCILA Vieira Ot N18.3 CHRONIC KIDNEY DISEASE, STAGE 3 (MODERAT 08/13/2017 RAMESH STARR, PRISCILA Vieira Ot Z94.4 LIVER TRANSPLANT STATUS 08/14/2017 PRISCILA CHANDLER MD Ot I12.9 HYPERTENSIVE CHRONIC KIDNEY DISEASE W ST 08/14/2017 PRISCILA CHANDLER MD Ot N18.3 CHRONIC KIDNEY DISEASE, STAGE 3 (MODERAT 08/14/2017 PRISCILA CHANDLER MD Ot R60.9 EDEMA, UNSPECIFIED 08/14/2017 PRISCILA CHANDLER MD Ot Z94.4 LIVER TRANSPLANT STATUS 08/14/2017 TEREZA BRADEN MD Ot K74.6 0 UNSPECIFIED CIRRHOSIS OF LIVER 08/14/2017 PRISCILA CHANDLER MD Ot N18.3 CHRONIC KIDNEY DISEASE, STAGE 3 (MODERAT 08/27/2017 TEREZA BRADEN MD Ot K74.6 0 UNSPECIFIED CIRRHOSIS OF LIVER 08/30/2017 PRISCILA CHANDLER MD Ot I12.9 HYPERTENSIVE CHRONIC KIDNEY DISEASE W ST 08/30/2017 PRISCILA CHANDLER MD Ot N18.3 CHRONIC KIDNEY DISEASE, STAGE 3 (MODERAT 08/30/2017 PRISCILA CHANDLER MD Ot Z94.4 LIVER TRANSPLANT STATUS 10/16/2017 PRISCILA CHANDLER MD Ot E83.42 HYPOMAGNESEMIA 10/16/2017 PRISCILA CHANDLER MD Ot I12.9 HYPERTENSIVE CHRONIC KIDNEY DISEASE W ST 10/16/2017 PRISCILA CHANDLER MD Ot N18.3 CHRONIC KIDNEY DISEASE, STAGE 3 (MODERAT 10/16/2017 PRISCILA CHANDLER MD Ot R60.9 EDEMA, UNSPECIFIED 10/25/2017 TEREZA BRADEN MD Ot K74.6 0 UNSPECIFIED CIRRHOSIS OF LIVER 10/25/2017 TEREZA BRADEN MD Ot Z79.8 99 OTHER CORRECTION (CURRENT) DRUG THERAPY 10/26/2017 PRISCILA CHANDLER MD Ot E83.42 HYPOMAGNESEMIA 10/26/2017 PRISCILA CHANDLER MD Ot I12.9 HYPERTENSIVE CHRONIC KIDNEY DISEASE W ST 10/26/2017 PRISCILA CHANDLER MD Ot N18.3 CHRONIC KIDNEY DISEASE, STAGE 3 (MODERAT 10/26/2017 PRISCILA CHANDLER MD Ot R60.9 EDEMA, UNSPECIFIED 11/06/2017 TEREZA BRADEN MD Ot K74.6 0 UNSPECIFIED CIRRHOSIS OF LIVER 11/06/2017 TEREZA BRADEN MD Ot Z79.8 99 OTHER CORRECTION (CURRENT) DRUG THERAPY 01/11/2018 PRISCILA CHANDLER MD Ot N18.4 CHRONIC KIDNEY DISEASE, STAGE 4 (SEVERE) 01/16/2018 PRISCILA CHANDLER MD, Ot N18.4 CHRONIC KIDNEY DISEASE, STAGE 4 (SEVERE) 03/18/2018 PRISCILA CHANDLER MD Ot E87.6 HYPOKALEMIA 03/18/2018 PRISCILA CHANDLER MD Ot I12.9 HYPERTENSIVE CHRONIC KIDNEY DISEASE W ST 03/18/2018 PRISCILA CHANDLER MD Ot N17.9 ACUTE KIDNEY FAILURE, UNSPECIFIED 03/18/2018 PRISCILA CHANDLER MD Ot N18.4 CHRONIC KIDNEY DISEASE, STAGE 4 (SEVERE) 03/18/2018 PRISCILA CHANDLER MD Ot R11.2 NAUSEA WITH VOMITING, UNSPECIFIED 03/18/2018 PRISCILA CHANDLER MD Ot Z94.4 LIVER TRANSPLANT STATUS 03/20/2018 PRISCILA CHANDLER MD Ot E87.6 HYPOKALEMIA 03/20/2018 PRISCILA CHANDLER MD Ot I12.9 HYPERTENSIVE CHRONIC KIDNEY DISEASE W ST 03/20/2018 PRISCILA CHANDLER MD Ot N17.9 ACUTE KIDNEY FAILURE, UNSPECIFIED 03/20/2018 PRISCILA CHANDLER MD Ot N18.4 CHRONIC KIDNEY DISEASE, STAGE 4 (SEVERE) 03/20/2018 PRISCILA CHANDLER MD Ot R11.2 NAUSEA WITH VOMITING, UNSPECIFIED 03/20/2018 PRISCILA CHANDLER MD Ot Z94.4 LIVER TRANSPLANT STATUS 03/26/2018 PRISCILA CHANDLER MD Ot E87.6 HYPOKALEMIA 03/26/2018 PRISCILA CHANDLER MD Ot I12.9 HYPERTENSIVE CHRONIC KIDNEY DISEASE W ST 03/26/2018 PRISCILA CHANDLER MD Ot N17.9 ACUTE KIDNEY FAILURE, UNSPECIFIED 03/26/2018 PRISCILA CHANDLER MD Ot N18.4 CHRONIC KIDNEY DISEASE, STAGE 4 (SEVERE) 03/26/2018 PRISCILA CHANDLER MD Ot R11.2 NAUSEA WITH VOMITING, UNSPECIFIED 03/26/2018 RAMESH STARR, PRISCILA Vieira Ot Z94.4 LIVER TRANSPLANT STATUS 04/15/2018 SHREYAS STARR, ANABELL Sandoval Ot D64.9 ANEMIA, UNSPECIFIED 04/15/2018 SHREYAS STARR, ANABELL Sandoval Ot D72.829 ELEVATED WHITE BLOOD CELL COUNT, UNSPECI 04/15/2018 ANABELL PRITCHETT MD Ot F17.210 NICOTINE DEPENDENCE, CIGARETTES, UNCOMPL 04/15/2018 ANABELL PRITCHETT MD Ot F32.9 MAJOR DEPRESSIVE DISORDER, SINGLE EPISOD 04/15/2018 ANABELL PRITCHETT MD Ot F41.9 ANXIETY DISORDER, UNSPECIFIED 04/15/2018 ANABELL PRITCHETT MD Ot I95.9 HYPOTENSION, UNSPECIFIED 04/15/2018 ANABELL PRITCHETT MD Ot J43.9 EMPHYSEMA, UNSPECIFIED 04/15/2018 ANABELL PRITCHETT MD Ot K62.5 HEMORRHAGE OF ANUS AND RECTUM 04/15/2018 SHREYAS STARR, ANABELL Sandoval Ot K72.91 HEPATIC FAILURE, UNSPECIFIED WITH COMA 04/15/2018 ANABELL PRITCHETT MD Ot N17.9 ACUTE KIDNEY FAILURE, UNSPECIFIED 04/15/2018 ANAEBLL PRITCHETT MD Ot N18.9 CHRONIC KIDNEY DISEASE, UNSPECIFIED 04/15/2018 ANABELL PRITCHETT MD Ot R00.1 BRADYCARDIA, UNSPECIFIED 04/15/2018 ANABELL PRITCHETT MD Ot Z85.05 PERSONAL HISTORY OF MALIGNANT NEOPLASM O 04/15/2018 ANABELL PRITCHETT MD Ot Z87.19 PERSONAL HISTORY OF OTHER DISEASES OF TH 04/15/2018 ANABELL PRITCHETT MD Ot Z87.448 PERSONAL HISTORY OF OTHER DISEASES OF UR 04/15/2018 ANABELL PRITCHETT MD, Ot Z88.5 ALLERGY STATUS TO NARCOTIC AGENT STATUS 04/15/2018 ANABELL PRITCHETT MD Ot Z88.6 ALLERGY STATUS TO ANALGESIC AGENT STATUS 04/15/2018 ANABELL PRITCHETT MD Ot Z88.8 ALLERGY STATUS TO OTH DRUG/MEDS/BIOL SUB 04/15/2018 ANABELL PRITCHETT MD Ot Z91.041 RADIOGRAPHIC DYE ALLERGY STATUS 04/15/2018 ANABELL PRITCHETT MD Ot Z94.4 LIVER TRANSPLANT STATUS 04/17/2018 ANABELL PRITCHETT MD Ot D64.9 ANEMIA, UNSPECIFIED 04/17/2018 ANABELL PRITCHETT MD Ot D72.829 ELEVATED WHITE BLOOD CELL COUNT, UNSPECI 04/17/2018 ANABELL PRITCHETT MD Ot F17.210 NICOTINE DEPENDENCE, CIGARETTES, UNCOMPL 04/17/2018 ANABELL PRITCHETT MD Ot F32.9 MAJOR DEPRESSIVE DISORDER, SINGLE EPISOD 04/17/2018 ANABELL PRITCHETT MD Ot F41.9 ANXIETY DISORDER, UNSPECIFIED 04/17/2018 ANABELL PRITCHETT MD Ot I95.9 HYPOTENSION, UNSPECIFIED 04/17/2018 ANABELL PRITCHETT MD Ot J43.9 EMPHYSEMA, UNSPECIFIED 04/17/2018 ANABELL PRITCHETT MD Ot K62.5 HEMORRHAGE OF ANUS AND RECTUM 04/17/2018 ANABELL PRITCHETT MD Ot K72.91 HEPATIC FAILURE, UNSPECIFIED WITH COMA 04/17/2018 ANABELL PRITCHETT MD Ot N17.9 ACUTE KIDNEY FAILURE, UNSPECIFIED 04/17/2018 ANABELL PRITCHETT MD, Ot N18.9 CHRONIC KIDNEY DISEASE, UNSPECIFIED 04/17/2018 ANABELL PRITCHETT MD Ot R00.1 BRADYCARDIA, UNSPECIFIED 04/17/2018 ANABELL PRITCHETT MD Ot Z85.05 PERSONAL HISTORY OF MALIGNANT NEOPLASM O 04/17/2018 ANABELL PRITCHETT MD Ot Z87.19 PERSONAL HISTORY OF OTHER DISEASES OF TH 04/17/2018 ANABELL PRITCHETT MD Ot Z87.448 PERSONAL HISTORY OF OTHER DISEASES OF UR 04/17/2018 ANABELL PRITCHETT MD, Ot Z88.5 ALLERGY STATUS TO NARCOTIC AGENT STATUS 04/17/2018 ANABELL PRITCHETT MD Ot Z88.6 ALLERGY STATUS TO ANALGESIC AGENT STATUS 04/17/2018 ANABELL PRITCHETT MD Ot Z88.8 ALLERGY STATUS TO OT DRUG/MEDS/BIOL SUB 04/17/2018 SHREYAS STARR, ANABELL Sandoval Ot Z91.041 RADIOGRAPHIC DYE ALLERGY STATUS 04/17/2018 SHREYAS STARR, ANABELL Sandoval Ot Z94.4 LIVER TRANSPLANT STATUS 05/23/2018 GILA TONA SULLIVAN Ot D64.9 ANEMIA, UNSPECIFIED 05/24/2018 TONA URIOSTEGUI DO Ot D64.9 ANEMIA, UNSPECIFIED 06/05/2018 RAMESH STARR, PRISCILA Vieiar Ot N18.4 CHRONIC KIDNEY DISEASE, STAGE 4 (SEVERE) 07/03/2018 TEREZA BRADEN MD Ot E61.1 IRON DEFICIENCY 07/05/2018 TEREZA BRADEN MD Ot E61.1 IRON DEFICIENCY 07/15/2018 TEREZA BRADEN MD Ot E61.1 IRON DEFICIENCY 07/19/2018 PRISCILA CHANDLER MD Ot 268.9 VITAMIN D DEFICIENCY NOS 07/19/2018 PRISCILA CHANDLER MD Ot V42.7 LIVER TRANSPLANT STATUS 07/19/2018 MARIA LUISA STARR, MICHAEL Joel Ot 780.7 9 OTH MALAISE FATIGUE 07/19/2018 PRISCILA CHANDLER MD Ot 585.3 CHRONIC KIDNEY DISEASE, STAGE III (MODER 07/19/2018 MARIA LUISA STARR, MICHAEL Joel Ot 719.0 6 JOINT EFFUSION-L/LEG 07/19/2018 MARIA LUISA STARR, MICHAEL Joel Ot 719.4 7 JOINT PAIN-ANKLE 07/19/2018 TEREZA BRADEN MD Ot V42.7 LIVER TRANSPLANT STATUS 07/19/2018 TEREZA BRADEN MD Ot V58.4 4 AFTERCARE FOLLOWING ORGAN TRANSPLANT 07/19/2018 RAMESH STARR, PRISCILA Vieira Ot 268.9 VITAMIN D DEFICIENCY NOS 07/19/2018 RAMESH STARR, PRISCILA Vieira Ot 276.8 HYPOPOTASSEMIA 07/19/2018 PRISCILA CHANDLER MD Ot 585.3 CHRONIC KIDNEY DISEASE, STAGE III (MODER 07/19/2018 RAMESH STARR, PRISCILA Vieira Ot 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 07/19/2018 MARIA LUISA STARR, MICHAEL Joel Ot 275.4 1 HYPOCALCEMIA 07/19/2018 MARIA LUISA STARR, MICHAEL Joel Ot 276.9 ELECTROLYT/FLUID DIS NEC 07/19/2018 MARIA LUISA STARR, MICHAEL Joel Ot 427.8 9 CARDIAC DYSRHYTHMIAS NEC 07/19/2018 TEREZA BRADEN MD Ot 572.8 OTH SEQUELA, CHR LILIANA DIS 07/19/2018 TEREZA BRADEN MD Ot 585.3 CHRONIC KIDNEY DISEASE, STAGE III (MODER 07/19/2018 TEREZA BRADEN MD Ot 790.6 ABN BLOOD CHEMISTRY NEC 07/19/2018 ANGELICA STARR, LOYDA Joel Ot 427. 9 CARDIAC DYSRHYTHMIA NOS 07/19/2018 LOYDA DOMINGUEZ MD Ot 585. 9 CHRONIC KIDNEY DISEASE, UNSPECIFIED 07/19/2018 LOYDA DOMINGUEZ MD Ot V15. 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 07/19/2018 Ot 427.9 CARD IAC DYSRHYTHMIA NOS 07/19/2018 Ot 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, UNSPECIFIED 07/19/2018 Ot 790.29 OTH ER ABNORMAL GLUCOSE 07/19/2018 Ot V15.81 HX OF PAST NONCOMPLIANCE 07/19/2018 PRISCILA CHANDLER MD Ot 268.9 VITAMIN D DEFICIENCY NOS 07/19/2018 PRISCILA CHANDLER MD Ot 275.2 DIS MAGNESIUM METABOLISM 07/19/2018 PRISCILA CHANDLER MD Ot 585.3 CHRONIC KIDNEY DISEASE, STAGE III (MODER 07/19/2018 PRISCILA CHANDLER MD Ot 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 07/19/2018 PRISCILA CHANDLER MD Ot 268.9 VITAMIN D DEFICIENCY NOS 07/19/2018 PRISCILA CHANDLER MD Ot 275.2 DIS MAGNESIUM METABOLISM 07/19/2018 PRISCILA CHANDLER MD Ot 585.3 CHRONIC KIDNEY DISEASE, STAGE III (MODER 07/19/2018 Ot 338.29 OTH ER CHRONIC PAIN 07/19/2018 Ot 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 07/19/2018 Ot 729.82 MONOTYPE CASTER MP IN LIMB 07/19/2018 Ot V58.69 OTH MED,LT,CURRENT USE 07/19/2018 Ot 268.9 MEAGAN MIN D DEFICIENCY NOS 07/19/2018 Ot 275.2 DIS MAGNESIUM METABOLISM 07/19/2018 Ot 403.90 HYP TNSV CHR KID DIS, UNSPEC, W CHR KD ST 07/19/2018 Ot 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, STAGE III (MODER 07/19/2018 MARIA LUISA STARR, MICHAEL Joel Ot 729.8 2 CRAMP IN LIMB 07/19/2018 MICHAEL GLASS MD Ot 780.6 0 FEVER, UNSPECIFIED 07/19/2018 MICHAEL GLASS MD Ot V58.6 9 OTH MED,LT,CURRENT USE 07/19/2018 TEREZA BRADEN MD Ot 571.5 CIRRHOSIS OF LIVER NOS 07/19/2018 TEREZA BRADEN MD Ot V42.7 LIVER TRANSPLANT STATUS 07/19/2018 MICHAEL GLASS MD Ot 573.9 LIVER DISORDER NOS 07/19/2018 MICHAEL GLASS MD Ot 780.6 0 FEVER, UNSPECIFIED 07/19/2018 MICHAEL GLASS MD Ot V42.7 LIVER TRANSPLANT STATUS 07/19/2018 EDUARDO PALACIO Ot 268.9 VITAMIN D DEFICIENCY NOS 07/19/2018 EDUARDO PALACIO Ot 272.4 HYPERLIPIDEMIA NEC/NOS 07/19/2018 EDUARDO PALACIO Ot V42.7 LIVER TRANSPLANT STATUS 07/19/2018 EDUARDO PALACIO Ot V58.69 OTH MED,LT,CURRENT USE 07/19/2018 MICHAEL GLASS MD Ot F17.2 10 NICOTINE DEPENDENCE, CIGARETTES, UNCOMPL 07/19/2018 MICHAEL GLASS MD Ot R05 COUGH 07/19/2018 MICHAEL GLASS MD Ot R10.9 UNSPECIFIED ABDOMINAL PAIN 07/19/2018 MICHAEL GLASS MD Ot R91.1 SOLITARY PULMONARY NODULE 07/19/2018 MARJAN STANLEY DO Ot B49 UNSPECIFIED MYCOSIS 07/19/2018 MARJAN STANLEY DO Ot R91.8 OTHER NONSPECIFIC ABNORMAL FINDING OF BRENT 07/19/2018 MARJAN STANLEY DO Ot Z94.4 LIVER TRANSPLANT STATUS 07/19/2018 SERGIO DO, KIMBERLEY M Ot J44. 9 CHRONIC OBSTRUCTIVE PULMONARY DISEASE, U 07/19/2018 SERGIO SULLIVAN KIMBERLEY Suhail Ot R91. 8 OTHER NONSPECIFIC ABNORMAL FINDING OF BRENT 07/19/2018 RAMESH STARR, PRISCILA Vieira Ot E55.9 VITAMIN D DEFICIENCY, UNSPECIFIED 07/19/2018 PRISCILA CHANDLER MD Ot E83.42 HYPOMAGNESEMIA 07/19/2018 PRISCILA CHANDLER MD Ot K72.90 HEPATIC FAILURE, UNSPECIFIED WITHOUT COM 07/19/2018 RAMESH STARR, PRISCILA Vieira Ot N18.3 CHRONIC KIDNEY DISEASE, STAGE 3 (MODERAT 07/19/2018 TEREZA BRADEN MD Ot K74.6 0 UNSPECIFIED CIRRHOSIS OF LIVER 07/19/2018 Ot Z51.81 ENC OUNTER FOR THERAPEUTIC DRUG LEVEL MON 07/19/2018 Ot Z79.899 OT HER CORRECTION (CURRENT) DRUG THERAPY 07/19/2018 Ot Z94.4 LIVE R TRANSPLANT STATUS 07/19/2018 MICHAEL GLASS MD Ot K72.9 0 HEPATIC FAILURE, UNSPECIFIED WITHOUT COM 07/19/2018 TEREZA BRADEN MD Ot K74.6 0 UNSPECIFIED CIRRHOSIS OF LIVER 07/19/2018 EMELIA LOZOYA [employer]IES SPECIALIST Ot F17.200 NICOTINE DEPENDENCE, UNSPECIFIED, UNCOMP 07/19/2018 EMELIA LOZOYA REGION[employer] F[employer]ILITIES SPECIALIST Ot J44.9 CHRONIC OBSTRUCTIVE PULMONARY DISEASE, U 07/19/2018 PHYLLIS LOZOYAINE E REGION[employer] FACILITIES SPECIALIST Ot F17.200 NICOTINE DEPENDENCE, UNSPECIFIED, UNCOMP 07/19/2018 EMELIA LOZOYA REGION[employer] FACILITIES SPECIALIST Ot J44.9 CHRONIC OBSTRUCTIVE PULMONARY DISEASE, U 07/19/2018 EMELIA LOZOYA REGION[employer] FACILITIES SPECIALIST Ot R91.8 OTHER NONSPECIFIC ABNORMAL FINDING OF BRENT 07/19/2018 TEREZA BRADEN MD Ot K74.6 0 UNSPECIFIED CIRRHOSIS OF LIVER 07/19/2018 TEREZA BRADEN MD Ot E83.4 2 HYPOMAGNESEMIA 07/19/2018 TEREZA BRADEN MD Ot Z94.4 LIVER TRANSPLANT STATUS 07/19/2018 PRISCILA CHANDLER MD Ot E55.9 VITAMIN D DEFICIENCY, UNSPECIFIED 07/19/2018 PRISCILA CHANDLER MD Ot E83.42 HYPOMAGNESEMIA 07/19/2018 PRISCILA CHANDLER MD Ot J20.9 ACUTE BRONCHITIS, UNSPECIFIED 07/19/2018 RAMESH STARR, PRISCILA B Ot N18.3 CHRONIC KIDNEY DISEASE, STAGE 3 (MODERAT 07/19/2018 ASIYA STARR, TEREZA Mathew Ot K74.6 0 UNSPECIFIED CIRRHOSIS OF LIVER 07/19/2018 RAMESH STARR, PRISCILA B Ot N18.3 CHRONIC KIDNEY DISEASE, STAGE 3 (MODERAT 07/19/2018 RAMESH STARR, PRISCILA B Ot N18.3 CHRONIC KIDNEY DISEASE, STAGE 3 (MODERAT 07/19/2018 ASIYA STARR, TEREZA Mathew Ot K74.6 0 UNSPECIFIED CIRRHOSIS OF LIVER 07/19/2018 RAMESH STARR, PRISCILA B Ot N18.3 CHRONIC KIDNEY DISEASE, STAGE 3 (MODERAT 07/19/2018 RAMESH STARR, PRISCILA B Ot N18.3 CHRONIC KIDNEY DISEASE, STAGE 3 (MODERAT 07/19/2018 ASIYA STARR, TEREZA Mathew Ot K74.6 0 UNSPECIFIED CIRRHOSIS OF LIVER 07/19/2018 RAMESH STARR, PRISCILA Vieira Ot I12.9 HYPERTENSIVE CHRONIC KIDNEY DISEASE W ST 07/19/2018 RAMESH STARR, PRISCILA B Ot N18.3 CHRONIC KIDNEY DISEASE, STAGE 3 (MODERAT 07/19/2018 RAMESH STARR, PRISCILA Vieira Ot R80.8 OTHER PROTEINURIA 07/19/2018 RAMESH STARR, PRISCILA Vieira Ot Z94.4 LIVER TRANSPLANT STATUS 07/19/2018 RAMESH STARR, PRISCILA Vieira Ot E55.9 VITAMIN D DEFICIENCY, UNSPECIFIED 07/19/2018 RAMESH STARR, PRISCILA Vieira Ot I12.9 HYPERTENSIVE CHRONIC KIDNEY DISEASE W ST 07/19/2018 RAMESH STARR, PRISCILA B Ot N18.3 CHRONIC KIDNEY DISEASE, STAGE 3 (MODERAT 07/19/2018 PRISCILA CHANDLER MD B Ot R80.8 OTHER PROTEINURIA 07/19/2018 ASIYA STARR, TEREZA Mathew Ot K74.6 0 UNSPECIFIED CIRRHOSIS OF LIVER 07/19/2018 PRISCILA CHANDLER MD Ot N18.3 CHRONIC KIDNEY DISEASE, STAGE 3 (MODERAT 07/19/2018 PRISCILA CHANDLER MD B Ot I12.9 HYPERTENSIVE CHRONIC KIDNEY DISEASE W ST 07/19/2018 PRISCILA CHANDLER MD B Ot N18.3 CHRONIC KIDNEY DISEASE, STAGE 3 (MODERAT 07/19/2018 PRISCLIA CHANDLER MD B Ot Z94.4 LIVER TRANSPLANT STATUS 07/19/2018 PRISCILA CHANDLER MD Ot I12.9 HYPERTENSIVE CHRONIC KIDNEY DISEASE W ST 07/19/2018 PRISCILA CHANDLER MD Ot N18.3 CHRONIC KIDNEY DISEASE, STAGE 3 (MODERAT 07/19/2018 PRISCILA CHANDLER MD Ot R60.9 EDEMA, UNSPECIFIED 07/19/2018 PRISCILA CHANDLER MD Ot Z94.4 LIVER TRANSPLANT STATUS 07/19/2018 TEREZA BRADEN MD Ot K74.6 0 UNSPECIFIED CIRRHOSIS OF LIVER 07/19/2018 PRISCILA CHANDLER MD Ot E83.42 HYPOMAGNESEMIA 07/19/2018 PRISCILA CHANDLER MD Ot I12.9 HYPERTENSIVE CHRONIC KIDNEY DISEASE W ST 07/19/2018 PRISCILA CHANDLER MD Ot N18.3 CHRONIC KIDNEY DISEASE, STAGE 3 (MODERAT 07/19/2018 PRISCILA CHANDLER MD Ot R60.9 EDEMA, UNSPECIFIED 07/19/2018 TEREZA BRADEN MD Ot K74.6 0 UNSPECIFIED CIRRHOSIS OF LIVER 07/19/2018 TEREZA BRADEN MD Ot Z79.8 99 OTHER FILM PROJECTOR OPERATOR (CURRENT) DRUG THERAPY 07/19/2018 PRISCILA CHANDLER MD Ot N18.4 CHRONIC KIDNEY DISEASE, STAGE 4 (SEVERE) 07/19/2018 PRISCILA CHANDLER MD Ot E87.6 HYPOKALEMIA 07/19/2018 PRISCILA CHANDLER MD Ot I12.9 HYPERTENSIVE CHRONIC KIDNEY DISEASE W ST 07/19/2018 PRISCILA CHANDLER MD Ot N17.9 ACUTE KIDNEY FAILURE, UNSPECIFIED 07/19/2018 PRISCILA CHANDLER MD, Ot N18.4 CHRONIC KIDNEY DISEASE, STAGE 4 (SEVERE) 07/19/2018 PRISCILA CHANDLER MD Ot R11.2 NAUSEA WITH VOMITING, UNSPECIFIED 07/19/2018 PRISCILA CHANDLER MD Ot Z94.4 LIVER TRANSPLANT STATUS 07/19/2018 TONA URIOSTEGUI DO Ot D64.9 ANEMIA, UNSPECIFIED 07/19/2018 TEREZA BRADEN MD Ot E61.1 IRON DEFICIENCY 07/23/2018 PRISCILA CHANDLER MD, Ot D64.9 ANEMIA, UNSPECIFIED 07/23/2018 PRISCILA CHANDLER MD Ot E87.6 HYPOKALEMIA 07/23/2018 PRISCILA CHANDLER MD Ot I12.9 HYPERTENSIVE CHRONIC KIDNEY DISEASE W ST 07/23/2018 RAMESH STARR, PRISCILA Vieira Ot N17.9 ACUTE KIDNEY FAILURE, UNSPECIFIED 07/23/2018 PRISCILA CHANDLER MD Ot N18.4 CHRONIC KIDNEY DISEASE, STAGE 4 (SEVERE) 07/23/2018 PRISCILA CHANDLER MD Ot R60.9 EDEMA, UNSPECIFIED 09/19/2018 TEREZA BRADEN MD Ot K74.6 0 UNSPECIFIED CIRRHOSIS OF LIVER 09/19/2018 TEREZA BRADEN MD Ot Z94.4 LIVER TRANSPLANT STATUS 09/19/2018 TEREZA BRADEN MD Ot Z96.8 9 PRESENCE OF OTHER SPECIFIED FUNCTIONAL I 09/27/2018 MAXIME AMAYA APRN Ot F32 .9 MAJOR DEPRESSIVE DISORDER, SINGLE EPISOD 09/27/2018 MAXIME AMAYA APRN Ot F41 .9 ANXIETY DISORDER, UNSPECIFIED 09/27/2018 MAXIME AMAYA APRN Ot J43 .9 EMPHYSEMA, UNSPECIFIED 09/27/2018 MAXIME AMAYA APRN Ot R10 .9 UNSPECIFIED ABDOMINAL PAIN 09/27/2018 MAXIME AMAYA APRN Ot R41 .0 DISORIENTATION, UNSPECIFIED 09/27/2018 MAXIME AMAYA APRN Ot R51 HEADACHE 09/27/2018 MAXIME AMAYA APRN Ot Z23 ENCOUNTER FOR IMMUNIZATION 09/27/2018 MAXIME AMAYA APRN Ot Z77.22 CNTCT W AND EXPSR TO ENVIRON TOBACCO SMO 09/27/2018 MAXIME AMAYA APRN Ot Z85.05 PERSONAL HISTORY OF MALIGNANT NEOPLASM O 09/27/2018 MAXIME AMAYA APRN Ot Z87.19 PERSONAL HISTORY OF OTHER DISEASES OF TH 09/27/2018 MAXIME AMAYA APRN Ot Z87.448 PERSONAL HISTORY OF OTHER DISEASES OF UR 09/27/2018 MAXIEM AMAYA APRN Ot Z88 .5 ALLERGY STATUS TO NARCOTIC AGENT STATUS 09/27/2018 MAXIME AMAYA APRN Ot Z88 .6 ALLERGY STATUS TO ANALGESIC AGENT STATUS 09/27/2018 MAXIME AMAYA APRN Ot Z88 .8 ALLERGY STATUS TO OTH DRUG/MEDS/BIOL SUB 09/27/2018 MAXIME AMAYA APRN Ot Z91.041 RADIOGRAPHIC DYE ALLERGY STATUS 09/27/2018 MAXIME AMAYA APRN Ot Z94 .4 LIVER TRANSPLANT STATUS 09/30/2018 MAXIME AMAYA APRN Ot F32 .9 MAJOR DEPRESSIVE DISORDER, SINGLE EPISOD 09/30/2018 MAXIME AMAYA APRN Ot F41 .9 ANXIETY DISORDER, UNSPECIFIED 09/30/2018 MAXIME AMAYA APRN Ot J43 .9 EMPHYSEMA, UNSPECIFIED 09/30/2018 MAXIME AMAYA APRN Ot R10 .9 UNSPECIFIED ABDOMINAL PAIN 09/30/2018 MAXIME AMAYA APRN Ot R41 .0 DISORIENTATION, UNSPECIFIED 09/30/2018 MAXIME AMAYA APRN Ot R51 HEADACHE 09/30/2018 MAXIME AMAYA APRN Ot Z23 ENCOUNTER FOR IMMUNIZATION 09/30/2018 MAXIME AMAYA APRN Ot Z77.22 CNTCT W AND EXPSR TO ENVIRON TOBACCO SMO 09/30/2018 MAXIME AMAYA APRN Ot Z85.05 PERSONAL HISTORY OF MALIGNANT NEOPLASM O 09/30/2018 MAXIME AMAYA APRN Ot Z87.19 PERSONAL HISTORY OF OTHER DISEASES OF TH 09/30/2018 MAXIME AMAYA APRN Ot Z87.448 PERSONAL HISTORY OF OTHER DISEASES OF UR 09/30/2018 MAXIME AMAYA APRN Ot Z88 .5 ALLERGY STATUS TO NARCOTIC AGENT STATUS 09/30/2018 MAXIME AMAYA APRN Ot Z88 .6 ALLERGY STATUS TO ANALGESIC AGENT STATUS 09/30/2018 MAXIME AMAYA APRN Ot Z88 .8 ALLERGY STATUS TO OTH DRUG/MEDS/BIOL SUB 09/30/2018 MAXIME AMAYA APRN Ot Z91.041 RADIOGRAPHIC DYE ALLERGY STATUS 09/30/2018 MAXIME AMAYA APRN Ot Z94 .4 LIVER TRANSPLANT STATUS 10/10/2018 PRISCILA CHANDLER MD Ot D64.9 ANEMIA, UNSPECIFIED 10/10/2018 PRISCILA CHANDLER MD Ot E87.6 HYPOKALEMIA 10/10/2018 PRISCILA CHANDLER MD Ot I12.9 HYPERTENSIVE CHRONIC KIDNEY DISEASE W ST 10/10/2018 PRISCILA CHANDLER MD Ot N17.9 ACUTE KIDNEY FAILURE, UNSPECIFIED 10/10/2018 PRISCILA CHANDLER MD Ot N18.4 CHRONIC KIDNEY DISEASE, STAGE 4 (SEVERE) 10/10/2018 PRISCILA CHANDLER MD Ot R60.9 EDEMA, UNSPECIFIED 10/14/2018 RAMESH STARR, PRISCILA Vieira Ot N17.9 ACUTE KIDNEY FAILURE, UNSPECIFIED 10/14/2018 RAMESH STARR, PRISCILA Vieira Ot N18.4 CHRONIC KIDNEY DISEASE, STAGE 4 (SEVERE) 10/24/2018 MAXIME AMAYA APRN Ot F32 .9 MAJOR DEPRESSIVE DISORDER, SINGLE EPISOD 10/24/2018 MAXIME AMAYA APRN Ot F41 .9 ANXIETY DISORDER, UNSPECIFIED 10/24/2018 MAXIME AMAYA APRN Ot J18 .9 PNEUMONIA, UNSPECIFIED ORGANISM 10/24/2018 MAXIME AMAYA APRN Ot J43 .9 EMPHYSEMA, UNSPECIFIED 10/24/2018 MAXIME AMAYA APRN Ot N18 .6 END STAGE RENAL DISEASE 10/24/2018 MAXIME AMAYA APRN Ot R06.02 SHORTNESS OF BREATH 10/24/2018 MAXIME AMAYA APRN Ot Z77.22 CNTCT W AND EXPSR TO ENVIRON TOBACCO SMO 10/24/2018 MAXIME AMAYA APRN Ot Z85.05 PERSONAL HISTORY OF MALIGNANT NEOPLASM O 10/24/2018 MAXIME AMAYA APRN Ot Z87.19 PERSONAL HISTORY OF OTHER DISEASES OF TH 10/24/2018 MAXIME AMAYA APRN Ot Z88 .5 ALLERGY STATUS TO NARCOTIC AGENT STATUS 10/24/2018 MAXIME AMAYA APRN Ot Z88 .6 ALLERGY STATUS TO ANALGESIC AGENT STATUS 10/24/2018 MAXIME AMAYA APRN Ot Z88 .8 ALLERGY STATUS TO OTH DRUG/MEDS/BIOL SUB 10/24/2018 MAXIME AMAYA APRN Ot Z91.041 RADIOGRAPHIC DYE ALLERGY STATUS 10/24/2018 MAXIME AMAYA APRN Ot Z94 .4 LIVER TRANSPLANT STATUS 10/24/2018 MAXIME AMAYA APRN Ot Z99 .2 DEPENDENCE ON RENAL DIALYSIS 10/28/2018 MAXIME AMAYA APRN Ot F32 .9 MAJOR DEPRESSIVE DISORDER, SINGLE EPISOD 10/28/2018 MAXIME AMAYA APRN Ot F41 .9 ANXIETY DISORDER, UNSPECIFIED 10/28/2018 MAXIME AMAYA APRN Ot J18 .9 PNEUMONIA, UNSPECIFIED ORGANISM 10/28/2018 MAXIME AMAYA APRN Ot J43 .9 EMPHYSEMA, UNSPECIFIED 10/28/2018 MAXIME AMAYA APRN Ot N18 .6 END STAGE RENAL DISEASE 10/28/2018 MAXIME AMAYA REGIONAL FACILITIES SPECIALIST Ot R06.02 SHORTNESS OF BREATH 10/28/2018 MAXIME AMAYA APRN Ot Z77.22 CNTCT W AND EXPSR TO ENVIRON TOBACCO SMO 10/28/2018 MAXIME AMAYA REGIONAL FACILITIES SPECIALIST Ot Z85.05 PERSONAL HISTORY OF MALIGNANT NEOPLASM O 10/28/2018 MAXIME AMAYA APRN Ot Z87.19 PERSONAL HISTORY OF OTHER DISEASES OF TH 10/28/2018 MAXIME AAMYA APRN Ot Z88 .5 ALLERGY STATUS TO NARCOTIC AGENT STATUS 10/28/2018 MAXIME AMAYA APRN Ot Z88 .6 ALLERGY STATUS TO ANALGESIC AGENT STATUS 10/28/2018 MAXIME AMAYA APRN Ot Z88 .8 ALLERGY STATUS TO OTH DRUG/MEDS/BIOL SUB 10/28/2018 MAXIME AMAYA APRN Ot Z91.041 RADIOGRAPHIC DYE ALLERGY STATUS 10/28/2018 MAXIME AMAYA APRN Ot Z94 .4 LIVER TRANSPLANT STATUS 10/28/2018 MAXIME AMAYA APRN Ot Z99 .2 DEPENDENCE ON RENAL DIALYSIS 12/03/2018 PRISCILA CHANDLER MD Ot N18.4 CHRONIC KIDNEY DISEASE, STAGE 4 (SEVERE) 12/06/2018 MARIA LUISA STARR, MICHAEL Joel Ot 722.5 2 LUMB/LUMBOSAC DISC DEGEN 12/06/2018 MICHAEL GLASS MD Ot 737.3 0 IDIOPATHIC SCOLIOSIS 12/06/2018 Ot 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 12/06/2018 Ot 427.9 CARD IAC DYSRHYTHMIA NOS 12/06/2018 Ot 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, UNSPECIFIED 12/06/2018 Ot 790.29 OTH ER ABNORMAL GLUCOSE 12/06/2018 Ot V15.81 HX OF PAST NONCOMPLIANCE 12/06/2018 PRISCILA CHANDLER MD Ot 268.9 VITAMIN D DEFICIENCY NOS 12/06/2018 PRISCILA CHANDLER MD Ot 275.2 DIS MAGNESIUM METABOLISM 12/06/2018 PRISCILA CHANDLER MD Ot 585.3 CHRONIC KIDNEY DISEASE, STAGE III (MODER 12/06/2018 PRISCILA CHANDLER MD Ot 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 12/06/2018 PRISCILA CHANDLER MD Ot 268.9 VITAMIN D DEFICIENCY NOS 12/06/2018 PRISCILA CAHNDLER MD Ot 275.2 DIS MAGNESIUM METABOLISM 12/06/2018 PRISCILA CHANDLER MD Ot 585.3 CHRONIC KIDNEY DISEASE, STAGE III (MODER 12/06/2018 Ot 338.29 OTH ER CHRONIC PAIN 12/06/2018 Ot 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 12/06/2018 Ot 729.82 MONOTYPE CASTER MP IN LIMB 12/06/2018 Ot V58.69 OTH MED,LT,CURRENT USE 12/06/2018 Ot 268.9 MEAGAN MIN D DEFICIENCY NOS 12/06/2018 Ot 275.2 DIS MAGNESIUM METABOLISM 12/06/2018 Ot 403.90 HYP TNSV CHR KID DIS, UNSPEC, W CHR KD ST 12/06/2018 Ot 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, STAGE III (MODER 12/06/2018 MARIA LUISA STARR, MICHAEL Joel Ot 729.8 2 CRAMP IN LIMB 12/06/2018 MICHAEL GLASS MD Ot 780.6 0 FEVER, UNSPECIFIED 12/06/2018 MICHAEL GLASS MD Ot V58.6 9 OTH MED,LT,CURRENT USE 12/06/2018 TEREZA BRADEN MD Ot 571.5 CIRRHOSIS OF LIVER NOS 12/06/2018 TEREZA BRADEN MD Ot V42.7 LIVER TRANSPLANT STATUS 12/06/2018 MICHAEL GLASS MD Ot 573.9 LIVER DISORDER NOS 12/06/2018 MARIA LUISA STARR, MICHAEL Joel Ot 780.6 0 FEVER, UNSPECIFIED 12/06/2018 MICHAEL GLASS MD Ot V42.7 LIVER TRANSPLANT STATUS 12/06/2018 EDUARDO PALACIO Ot 268.9 VITAMIN D DEFICIENCY NOS 12/06/2018 EDUARDO PALACIO Ot 272.4 HYPERLIPIDEMIA NEC/NOS 12/06/2018 EDUARDO PALACIO Ot V42.7 LIVER TRANSPLANT STATUS 12/06/2018 EDUARDO PALACIO Ot V58.69 OTH MED,LT,CURRENT USE 12/06/2018 MICHAEL GLASS MD Ot F17.2 10 NICOTINE DEPENDENCE, CIGARETTES, UNCOMPL 12/06/2018 MICHAEL GLASS MD Ot R05 COUGH 12/06/2018 MICHAEL GLASS MD Ot R10.9 UNSPECIFIED ABDOMINAL PAIN 12/06/2018 MICHAEL GLASS MD Ot R91.1 SOLITARY PULMONARY NODULE 12/06/2018 STANLEY DO, MARJAN Ot 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 9 CHRONIC OBSTRUCTIVE PULMONARY DISEASE, U 12/06/2018 KIMBERLEY HILL DO Ot R91. 8 OTHER NONSPECIFIC ABNORMAL FINDING OF BRENT 12/06/2018 PRISCILA CHANDLER MD Ot E55.9 VITAMIN D DEFICIENCY, UNSPECIFIED 12/06/2018 PRISCILA CHANDLER MD Ot E83.42 HYPOMAGNESEMIA 12/06/2018 PRISCILA CHANDLER MD Ot K72.90 HEPATIC FAILURE, UNSPECIFIED WITHOUT COM 12/06/2018 PRISCILA CHANDLER MD Ot N18.3 CHRONIC KIDNEY DISEASE, STAGE 3 (MODERAT 12/06/2018 TEREZA BRADEN MD Ot K74.6 0 UNSPECIFIED CIRRHOSIS OF LIVER 12/06/2018 Ot Z51.81 [facility] 12/06/2018 Ot Z79.899 OT HER CORRECTION (CURRENT) DRUG THERAPY 12/06/2018 Ot Z94.4 LIVE R TRANSPLANT STATUS 12/06/2018 MICHAEL GLASS MD Ot K72.9 0 HEPATIC FAILURE, UNSPECIFIED WITHOUT COM 12/06/2018 TEREZA BRADEN MD Ot K74.6 0 UNSPECIFIED CIRRHOSIS OF LIVER 12/06/2018 EMELIA LOZOYA REGIONAL FACILITIES SPECIALIST Ot F17.200 NICOTINE DEPENDENCE, UNSPECIFIED, UNCOMP 12/06/2018 EMELIA LOZOYA REGIONAL FACILITIES SPECIALIST Ot J44.9 CHRONIC OBSTRUCTIVE PULMONARY DISEASE, U 12/06/2018 EMELIA LOZOYA REGIONAL FACILITIES SPECIALIST Ot F17.200 NICOTINE DEPENDENCE, UNSPECIFIED, UNCOMP 12/06/2018 EMELIA LOZOYA REGIONAL FACILITIES SPECIALIST Ot J44.9 CHRONIC OBSTRUCTIVE PULMONARY DISEASE, U 12/06/2018 EMELIA LOZOYA REGIONAL FACILITIES SPECIALIST Ot R91.8 OTHER NONSPECIFIC ABNORMAL FINDING OF BRENT 12/06/2018 TEREZA BRADEN MD Ot K74.6 0 UNSPECIFIED CIRRHOSIS OF LIVER 12/06/2018 TEREZA BRADEN MD Ot E83.4 2 HYPOMAGNESEMIA 12/06/2018 TEREZA BRADEN MD Ot Z94.4 LIVER TRANSPLANT STATUS 12/06/2018 RAMESH STARR, PRISCILA Vieira Ot E55.9 VITAMIN D DEFICIENCY, UNSPECIFIED 12/06/2018 RAMESH STARR, PRISCILA Vieira Ot E83.42 HYPOMAGNESEMIA 12/06/2018 RAMESH STARR, PRISCILA Vieira Ot J20.9 ACUTE BRONCHITIS, UNSPECIFIED 12/06/2018 RAMESH STARR, PRISCILA Vieira Ot N18.3 CHRONIC KIDNEY DISEASE, STAGE 3 (MODERAT 12/06/2018 ASIYA STARR, TEREZA Mathew Ot K74.6 0 UNSPECIFIED CIRRHOSIS OF LIVER 12/06/2018 RAMESH STARR, PRISCILA Vieira Ot N18.3 CHRONIC KIDNEY DISEASE, STAGE 3 (MODERAT 12/06/2018 PRISCILA CHANDLER MD Ot N18.3 CHRONIC KIDNEY DISEASE, STAGE 3 (MODERAT 12/06/2018 ASIYA STARR, TEREZA Mathew Ot K74.6 0 UNSPECIFIED CIRRHOSIS OF LIVER 12/06/2018 PRISCILA CHANDLER MD Ot N18.3 CHRONIC KIDNEY DISEASE, STAGE 3 (MODERAT 12/06/2018 PRISCILA CHANDLER MD Ot N18.3 CHRONIC KIDNEY DISEASE, STAGE 3 (MODERAT 12/06/2018 ASIYA STARR, TEREZA Mathew Ot K74.6 0 UNSPECIFIED CIRRHOSIS OF LIVER 12/06/2018 RAMESH STARR, PRISCILA Vieira Ot I12.9 HYPERTENSIVE CHRONIC KIDNEY DISEASE W ST 12/06/2018 RAMESH STARR, PRISCILA Vieira Ot N18.3 CHRONIC KIDNEY DISEASE, STAGE 3 (MODERAT 12/06/2018 RAMESH STARR, PRISCILA Vieira Ot R80.8 OTHER PROTEINURIA 12/06/2018 RAMESH STARR, PRISCILA Vieira Ot Z94.4 LIVER TRANSPLANT STATUS 12/06/2018 RAMESH STARR, PRISCILA Vieira Ot E55.9 VITAMIN D DEFICIENCY, UNSPECIFIED 12/06/2018 RAMESH STARR, PRISCILA Vieira Ot I12.9 HYPERTENSIVE CHRONIC KIDNEY DISEASE W ST 12/06/2018 RAMESH STARR, PRISCILA B Ot N18.3 CHRONIC KIDNEY DISEASE, STAGE 3 (MODERAT 12/06/2018 PRISCILA CHANDLER MD Ot R80.8 OTHER PROTEINURIA 12/06/2018 ASIYA STARR, TEREZA Mathew Ot K74.6 0 UNSPECIFIED CIRRHOSIS OF LIVER 12/06/2018 PRISCILA CHANDLER MD Ot N18.3 CHRONIC KIDNEY DISEASE, STAGE 3 (MODERAT 12/06/2018 PRISCILA CHANDLER MD Ot I12.9 HYPERTENSIVE CHRONIC KIDNEY DISEASE W ST 12/06/2018 PRISCILA CHANDLER MD Ot N18.3 CHRONIC KIDNEY DISEASE, STAGE 3 (MODERAT 12/06/2018 PRISCILA CHANDLER MD Ot Z94.4 LIVER TRANSPLANT STATUS 12/06/2018 PRISCILA CHANDLER MD Ot I12.9 HYPERTENSIVE CHRONIC KIDNEY DISEASE W ST 12/06/2018 PRISCILA CHANDLER MD Ot N18.3 CHRONIC KIDNEY DISEASE, STAGE 3 (MODERAT 12/06/2018 PRISCILA CHANDLER MD Ot R60.9 EDEMA, UNSPECIFIED 12/06/2018 PRISCILA CHANDLER MD Ot Z94.4 LIVER TRANSPLANT STATUS 12/06/2018 TEREZA BRADEN MD Ot K74.6 0 UNSPECIFIED CIRRHOSIS OF LIVER 12/06/2018 PRISCILA CHANDLER MD Ot E83.42 HYPOMAGNESEMIA 12/06/2018 PRISCILA CHANDLER MD Ot I12.9 HYPERTENSIVE CHRONIC KIDNEY DISEASE W ST 12/06/2018 PRISCILA CHANDLER MD Ot N18.3 CHRONIC KIDNEY DISEASE, STAGE 3 (MODERAT 12/06/2018 PRISCILA CHANDLER MD Ot R60.9 EDEMA, UNSPECIFIED 12/06/2018 TEREZA BRADEN MD Ot K74.6 0 UNSPECIFIED CIRRHOSIS OF LIVER 12/06/2018 TEREZA BRADEN MD Ot Z79.8 99 OTHER CORRECTION (CURRENT) DRUG THERAPY 12/06/2018 PRISCILA CHANDLER MD Ot N18.4 CHRONIC KIDNEY DISEASE, STAGE 4 (SEVERE) 12/06/2018 PRISCILA CHANDLER MD Ot E87.6 HYPOKALEMIA 12/06/2018 PRISCILA CHANDLER MD Ot I12.9 HYPERTENSIVE CHRONIC KIDNEY DISEASE W ST 12/06/2018 PRISCILA CHANDLER MD Ot N17.9 ACUTE KIDNEY FAILURE, UNSPECIFIED 12/06/2018 PRISCILA CHANDLER MD, Ot N18.4 CHRONIC KIDNEY DISEASE, STAGE 4 (SEVERE) 12/06/2018 PRISCILA CHANDLER MD Ot R11.2 NAUSEA WITH VOMITING, UNSPECIFIED 12/06/2018 PRISCILA CHANDLER MD Ot Z94.4 LIVER TRANSPLANT STATUS 12/06/2018 TONA URIOSTEGUI DO Ot D64.9 ANEMIA, UNSPECIFIED 12/06/2018 TEREZA BRADEN MD Ot E61.1 IRON DEFICIENCY 12/06/2018 RAMESH STARR, PRISCILA Vieira Ot D64.9 ANEMIA, UNSPECIFIED 12/06/2018 PRISCILA CHANDLER MD Ot E87.6 HYPOKALEMIA 12/06/2018 PRISCILA CHANDLER MD Ot I12.9 HYPERTENSIVE CHRONIC KIDNEY DISEASE W ST 12/06/2018 PRISCILA CHANDLER MD Ot N17.9 ACUTE KIDNEY FAILURE, UNSPECIFIED 12/06/2018 PRISCILA CHANDLER MD Ot N18.4 CHRONIC KIDNEY DISEASE, STAGE 4 (SEVERE) 12/06/2018 PRISCILA CHANDLER MD Ot R60.9 EDEMA, UNSPECIFIED 12/06/2018 TEREZA BRADEN MD Ot K74.6 0 UNSPECIFIED CIRRHOSIS OF LIVER 12/06/2018 TEREZA BRADEN MD Ot Z94.4 LIVER TRANSPLANT STATUS 12/06/2018 TEREZA BRADEN MD Ot Z96.8 9 PRESENCE OF OTHER SPECIFIED FUNCTIONAL I 12/06/2018 TEREZA BRADEN MD Ot K74.6 0 UNSPECIFIED CIRRHOSIS OF LIVER 12/06/2018 PRISCILA CHANDLER MD Ot D64.9 ANEMIA, UNSPECIFIED 12/06/2018 PRISCILA CHANDLER MD, Ot E87.6 HYPOKALEMIA 12/06/2018 PRISCILA CHANDLER MD Ot I12.9 HYPERTENSIVE CHRONIC KIDNEY DISEASE W ST 12/06/2018 PRISCILA CHANDLER MD, Ot N17.9 ACUTE KIDNEY FAILURE, UNSPECIFIED 12/06/2018 PRISCILA CHANDLER MD Ot N18.4 CHRONIC KIDNEY DISEASE, STAGE 4 (SEVERE) 12/06/2018 PRISCILA CHANDLER MD Ot R60.9 EDEMA, UNSPECIFIED 12/06/2018 PRISCILA CHANDLER MD Ot N17.9 ACUTE KIDNEY FAILURE, UNSPECIFIED 12/06/2018 PRISCILA CHANDLER MD Ot N18.4 CHRONIC KIDNEY DISEASE, STAGE 4 (SEVERE) 12/06/2018 PRISCILA CHANDLER MD, Ot N18.4 CHRONIC KIDNEY DISEASE, STAGE 4 (SEVERE) 12/10/2018 Ot E86.0 DEHY DRATION 12/10/2018 Ot N28.9 DISO RDER OF KIDNEY AND URETER, UNSPECIFI 12/12/2018 Ot E86.0 DEHY DRATION 12/12/2018 Ot N28.9 DISO RDER OF KIDNEY AND URETER, UNSPECIFI 12/13/2018 PRISCILA CHANDLER MD Ot N18.4 CHRONIC KIDNEY DISEASE, STAGE 4 (SEVERE) 12/13/2018 PRISCILA CHANDLER MD, Ot Z94.4 LIVER TRANSPLANT STATUS 12/15/2018 PRISCILA CHANDLER MD, Ot N18.4 CHRONIC KIDNEY DISEASE, STAGE 4 (SEVERE) 12/15/2018 PRISCILA CHANDLER MD, Ot Z94.4 LIVER TRANSPLANT STATUS 01/23/2019 PRISCILA CHANDLER MD, Ot D64.9 ANEMIA, UNSPECIFIED 01/23/2019 PRISCILA CHANDLER MD, Ot E87.6 HYPOKALEMIA 01/23/2019 PRISCILA CHANDLER MD Ot N17.0 ACUTE KIDNEY FAILURE WITH TUBULAR NECROS 01/23/2019 PRISCILA CHANDLER MD, Ot 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 O 04/06/2019 PRISCILA CHANDLER MD, Ot D64.9 ANEMIA, UNSPECIFIED 04/06/2019 PRISCILA CHANDLER MD Ot E87.6 HYPOKALEMIA 04/06/2019 PRISCILA CHANDLER MD Ot I10 ESSENTIAL (PRIMARY) HYPERTENSION 04/06/2019 PRISCILA CHANDLER MD Ot N17.9 ACUTE KIDNEY FAILURE, UNSPECIFIED 04/06/2019 PRISCILA CHANDLER MD, Ot 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 O 04/06/2019 PRISCILA CHANDLER MD Ot R60.9 EDEMA, UNSPECIFIED 04/10/2019 PRISCILA CHANDLER MD, Ot D64.9 ANEMIA, UNSPECIFIED 04/10/2019 PRISCILA CHANDLER MD, Ot E87.6 HYPOKALEMIA 04/10/2019 PRISCILA CHANDLER MD Ot I10 ESSENTIAL (PRIMARY) HYPERTENSION 04/10/2019 PRISCILA CHANDLER MD, Ot N17.9 ACUTE KIDNEY FAILURE, UNSPECIFIED 04/10/2019 PRISCILA CHANDLER MD, Ot 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 O 04/10/2019 PRISCILA CHANDLER MD Ot R60.9 EDEMA, UNSPECIFIED 05/21/2019 ILSA LOUISE MD Ot B18. 2 CHRONIC VIRAL HEPATITIS C 05/21/2019 ILSA LOUISE MD Ot D64. 89 OTHER SPECIFIED ANEMIAS 05/21/2019 ILSA LOUISE MD Ot H91. 93 UNSPECIFIED HEARING LOSS, BILATERAL 05/21/2019 ILSA LOUISE MD Ot J43. 9 EMPHYSEMA, UNSPECIFIED 05/21/2019 ILSA LOUISE MD Ot K70. 10 ALCOHOLIC HEPATITIS WITHOUT ASCITES 05/21/2019 ILSA LOUISE MD Ot N18. 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 19 PATIENT'S NONCOMPLIANCE W [facility] MEDICAL TR 08/30/2019 FRANCISCO MARES MD, Ot F17.210 NICOTINE DEPENDENCE, CIGARETTES, UNCOMPL 08/30/2019 FRANCISCO MARES MD Ot F32.9 MAJOR DEPRESSIVE DISORDER, SINGLE EPISOD 08/30/2019 FRANCISCO MARES MD, Ot F41.9 ANXIETY DISORDER, UNSPECIFIED 08/30/2019 FRANCISCO MARES MD Ot I12.9 HYPERTENSIVE CHRONIC KIDNEY DISEASE W ST 08/30/2019 FRANCISCO MARES MD Ot J20.9 ACUTE BRONCHITIS, UNSPECIFIED 08/30/2019 FRANCISCO MARES MD, Ot J43.9 EMPHYSEMA, UNSPECIFIED 08/30/2019 FRANCISCO MARES MD Ot N18.6 END STAGE RENAL DISEASE 08/30/2019 FRANCISCO MARES MD Ot R06.02 SHORTNESS OF BREATH 08/30/2019 FRANCISCO MARES MD Ot Z85.05 PERSONAL HISTORY OF MALIGNANT NEOPLASM O 08/30/2019 FRANCISCO MARES MD Ot Z88.5 ALLERGY STATUS TO NARCOTIC AGENT STATUS 08/30/2019 FRANCISCO MARES MD Ot Z88.6 ALLERGY STATUS TO ANALGESIC AGENT STATUS 08/30/2019 FRANCISCO MARES MD Ot Z88.8 ALLERGY STATUS TO [facility] DRUG/MEDS/BIOL SUB 08/30/2019 FRANCISCO MARES MD Ot Z91.041 RADIOGRAPHIC DYE ALLERGY STATUS 08/30/2019 FRANCISCO MARES MD Ot Z94.4 LIVER TRANSPLANT STATUS 08/30/2019 FRANCISCO MARES MD Ot Z99.2 DEPENDENCE ON RENAL DIALYSIS 09/02/2019 FRANCISCO MARES MD Ot F17.210 NICOTINE DEPENDENCE, CIGARETTES, UNCOMPL 09/02/2019 FRANCISCO MARES MD, Ot F32.9 MAJOR DEPRESSIVE DISORDER, SINGLE EPISOD 09/02/2019 FRANCISCO MARES MD, Ot F41.9 ANXIETY DISORDER, UNSPECIFIED 09/02/2019 FRANCISCO MARES MD Ot I12.9 HYPERTENSIVE CHRONIC KIDNEY DISEASE W ST 09/02/2019 FRANCISCO MARES MD, Ot J20.9 ACUTE BRONCHITIS, UNSPECIFIED 09/02/2019 FRANCISCO MARES MD, Ot J43.9 EMPHYSEMA, UNSPECIFIED 09/02/2019 FRANCISCO MARES MD, Ot N18.6 END STAGE RENAL DISEASE 09/02/2019 FRANCISCO MARES MD, Ot R06.02 SHORTNESS OF BREATH 09/02/2019 FRANCISCO MARES MD Ot Z85.05 PERSONAL HISTORY OF MALIGNANT NEOPLASM O 09/02/2019 FRANCISCO MARES MD, Ot Z88.5 ALLERGY STATUS TO NARCOTIC AGENT STATUS 09/02/2019 FRANCISCO MARES MD, Ot Z88.6 ALLERGY STATUS TO ANALGESIC AGENT STATUS 09/02/2019 FRANCISCO MARES MD, Ot Z88.8 ALLERGY STATUS TO OTH DRUG/MEDS/BIOL SUB 09/02/2019 FRANCISCO MARES MD, Ot Z91.041 RADIOGRAPHIC DYE ALLERGY STATUS 09/02/2019 FRANCISCO MARES MD Ot Z94.4 LIVER TRANSPLANT STATUS 09/02/2019 FRANCISCO MARES MD Ot Z99.2 DEPENDENCE ON RENAL DIALYSIS Procedures Code Description Performed By Per ramses On 86.07 INSE RTION OF TOTALLY IMPLANTABLE VASC AC 10/15/2009 Results Test Result Range Complete blood count (CBC) with automate d white blood cell (WBC) differential - 04/06/16 10:33 Blood leukocytes automated count (number/volume) 8.3 10*3/uL 4.3-11.0 Blood erythrocytes automated count (number/volume) 4.19 10*6/uL 4.35-5.85 Venous blood hemoglobin measurement (mass/volume) 13.3 g/dL 13.3-17.7 Blood hematocrit (volume fraction) 38 % 40-54 Automated erythrocyte mean corpuscular volume 91 [ foz_us] 80-99 Automated erythrocyte mean corpuscular h emoglobin (mass per erythrocyte) 32 pg 25-34 Automated erythrocyte mean corpuscular h emoglobin concentration measurement (mass/volume) 35 g/dL 32-36 Automated erythrocyte distribution width ratio 13. 6 % 10.0- 14.5 Automated blood platelet count (count/volume) 134 10*3/uL [...] 10*3 1.0-4.0 Blood monocytes automated count (number/volume) 1. 1 10*3 0.0-1.0 Automated eosinophil count 1.2 10*3/uL 0 .0-0.3 Automated blood basophil count (count/volume) 0.1 10*3/uL 0.0-0.1 Comprehensive metabolic panel - 04/06/16 10:33 Serum or plasma sodium measurement (moles/volume) 138 mmol/L 135-145 Serum or plasma potassium measurement (moles/volume) 3.5 mmol/L 3.6-5.0 Serum or plasma chloride measurement (moles/volume) 105 mmol/L 98-107 Carbon dioxide 23 mmol/L 21-32 Serum or plasma anion gap determination (moles/volume) 10 mmol/L 5-14 Serum or plasma urea nitrogen measurement (mass/volume ) 11 mg/dL 7-18 Serum or plasma creatinine measurement (mass/volume) 1.21 mg/dL 0.60-1.30 Serum or plasma urea nitrogen/creatinine mass ratio 9 NRG Serum or plasma creatinine measurement w ith calculation of estimated glomerular filtration rate > NRG Serum or plasma glucose measurement (mass/volume) 112 mg/dL 70-105 Serum or plasma calcium measurement (mass/volume) 8.7 mg/dL 8.5-10.1 Serum or plasma total bilirubin measurement (mass/volu me) 1.6 mg/dL 0.1-1.0 Serum or plasma alkaline phosphatase jase surement (enzymatic activity/volume) 137 U/L 40-136 Serum or plasma aspartate aminotransfera se measurement (enzymatic activity/volume) 30 U/L 5-34 Serum or plasma alanine aminotransferase measurement (enzymatic activity/volume) 20 U/L 0-55 Serum or plasma protein measurement (mass/volume) 6.7 g/dL 6.4-8.2 Serum or plasma albumin measurement (mass/volume) 3.2 g/dL 3.2-4.5 Ammonia - 04/06/16 10:33 Ammonia 47 umol/L 11-32 Blood manual differential performed dete ction - 04/06/16 10:33 Blood monocytes/100 leukocytes 9 % NRG Manual blood segmented neutrophils/100 leukocytes 46 % NRG Blood band neutrophils/100 leukocytes 0 % NRG Manual blood lymphocytes/100 leukocytes 26 % NRG Manual eosinophils/100 leukocytes in nose 19 % NRG Manual blood basophils/100 leukocytes 0 % NRG Blood erythrocyte morphology finding identification NORMAL NRG Serum or plasma renal function panel (Na , K, Cl, CO2, BUN, Cr, glucose,Ca, phos, alb) - 05/24/16 13:23 Serum or plasma sodium measurement (moles/volume) 135 mmol/L 135-145 Serum or plasma potassium measurement (moles/volume) 4.0 mmol/L 3.6-5.0 Serum or plasma chloride measurement (moles/volume) 104 mmol/L 98-107 Carbon dioxide 25 mmol/L 21-32 Serum or plasma anion gap determination (moles/volume) 6 mmol/L 5-14 Serum or plasma urea nitrogen measurement (mass/volume ) 17 mg/dL 7-18 Serum or plasma creatinine measurement (mass/volume) 1.15 mg/dL 0.60-1.30 Serum or plasma urea nitrogen/creatinine mass ratio 15 NRG Serum or plasma creatinine measurement w ith calculation of estimated glomerular filtration rate > NRG Serum or plasma glucose measurement (mass/volume) 88 mg/dL 70-105 Serum or plasma calcium measurement (mass/volume) 8.2 mg/dL 8.5-10.1 Serum or plasma albumin measurement (mass/volume) 2.9 g/dL 3.2-4.5 Serum or plasma phosphate measurement (mass/volume) 2.7 mg/dL 2.3-4.7 Serum or plasma uric acid measurement (m ass/volume) - 05/24/16 13:23 Serum or plasma uric acid measurement (mass/volume) 5.4 mg/dL 2.6-7.2 Magnesium - 05/24/16 13:23 Magnesium 1.4 mg/dL 1.8-2.4 Serum or plasma creatine kinase measurem ent (enzymatic activity/volume) - 05/24/16 13:23 Serum or plasma creatine kinase measurem ent (enzymatic activity/volume) 152 U/L 30-200 Serum or plasma intact pararthyroid horm one measurement (mass/volume) - 05/24/16 13:23 Serum or plasma intact parathyroid hormone measurement (mass/volume) 99 pg/mL 10-65 Bio-intact parathyroid hormone (PTH) measurement with calcium 8.0 % 8.5-10.5 25-hydroxyvitamin D measurement - 13:23 25-hydroxy vitamin D measurement 26 % 30-100 Complete urinalysis with reflex to cultu re - 05/24/16 14:10 Urine color determination CHRISTIN NRG Urine clarity determination CLEAR NR G Urine pH measurement by test strip 6 5-9 Specific gravity of urine by test strip 1.020 1.016-1.022 Urine protein assay by test strip, semi-quantitative 3+ NEGATIVE Urine glucose detection by automated test strip NE GATIVE NEGATIVE Erythrocytes detection in urine sediment by light micr oscopy 2+ NEGATIVE Urine ketones detection by automated test strip NE GATIVE NEGATIVE Urine nitrite detection by test strip NEGATIVE NEGATIVE Urine total bilirubin detection by test strip NEGA TIVE NEGATIVE Urine urobilinogen measurement by automated test strip (mass/volume) 1 mg/dL NORMAL Urine leukocyte esterase detection by dipstick NEG ATIVE NEGATIVE Automated urine sediment erythrocyte cou nt by microscopy (number/high power field) NONE NRG Automated urine sediment leukocyte count by microscopy (number/high power field) RARE NRG Bacteria detection in urine sediment by light microsco py NEGATIVE NRG Squamous epithelial cells detection in u rine sediment by light microscopy 0-2 NRG Crystals detection in urine sediment by light microsco py NONE NRG Casts detection in urine sediment by light microscopy NONE NRG Mucus detection in urine sediment by light microscopy SMALL NRG Complete urinalysis with reflex to culture NO NRG Urine protein/creatinine mass ratio - 14:10 Urine protein measurement (mass/volume) 196 mg/dL 6-12 Urine creatinine measurement (mass/volume) 204 mg/ dL 30-125 Urine protein/creatinine mass ratio 0.96 NRG Urine drug screening test - 11/08/16 13: 30 Urine phencyclidine detection by screening method NEGATIVE NEGATIVE Urine benzodiazepines detection by screening method NEGATIVE NEGATIVE Urine cocaine detection NEGATIVE NEGATI VE Urine amphetamines detection by screening method N EGATIVE NEGATIVE Urine methamphetamine detection by screening method NEGATIVE NEGATIVE Urine cannabinoids detection by screening method N EGATIVE NEGATIVE Urine opiates detection by screening method POSITI VE NEGATIVE Urine barbiturates detection NEGATIVE N EGATIVE Screening urine tricyclic antidepressants detection NEGATIVE NEGATIVE Urine methadone detection by screening method NEGA TIVE NEGATIVE Urine oxycodone detection POSITIVE NEGA TIVE Urine propoxyphene detection NEGATIVE N EGATIVE Complete blood count (CBC) with automate d white blood cell (WBC) differential - 11/08/16 13:49 Blood leukocytes automated count (number/volume) 12.9 10*3/uL 4.3-11.0 Blood erythrocytes automated count (number/volume) 3.84 10*6/uL 4.35-5.85 Venous blood hemoglobin measurement (mass/volume) 12.0 g/dL 13.3-17.7 Blood hematocrit (volume fraction) 35 % 40-54 Automated erythrocyte mean corpuscular volume 91 [ foz_us] 80-99 Automated erythrocyte mean corpuscular h emoglobin (mass per erythrocyte) 31 pg 25-34 Automated erythrocyte mean corpuscular h emoglobin concentration measurement (mass/volume) 35 g/dL 32-36 Automated erythrocyte distribution width ratio 14. 5 % 10.0- 14.5 Automated blood platelet count (count/volume) 110 10*3/uL [...] 10*3 1.0-4.0 Blood monocytes automated count (number/volume) 1. 3 10*3 0.0-1.0 Automated eosinophil count 0.8 10*3/uL 0 .0-0.3 Automated blood basophil count (count/volume) 0.1 10*3/uL 0.0-0.1 Comprehensive metabolic panel - 11/08/16 13:49 Serum or plasma sodium measurement (moles/volume) 138 mmol/L 135-145 Serum or plasma potassium measurement (moles/volume) 4.1 mmol/L 3.6-5.0 Serum or plasma chloride measurement (moles/volume) 107 mmol/L 98-107 Carbon dioxide 22 mmol/L 21-32 Serum or plasma anion gap determination (moles/volume) 9 mmol/L 5-14 Serum or plasma urea nitrogen measurement (mass/volume ) 23 mg/dL 7-18 Serum or plasma creatinine measurement (mass/volume) 1.68 mg/dL 0.60-1.30 Serum or plasma urea nitrogen/creatinine mass ratio 14 NRG Serum or plasma creatinine measurement w ith calculation of estimated glomerular filtration rate 42 NRG Serum or plasma glucose measurement (mass/volume) 104 mg/dL 70-105 Serum or plasma calcium measurement (mass/volume) 8.9 mg/dL 8.5-10.1 Serum or plasma total bilirubin measurement (mass/volu me) 1.3 mg/dL 0.1-1.0 Serum or plasma alkaline phosphatase jase surement (enzymatic activity/volume) 119 U/L 40-136 Serum or plasma aspartate aminotransfera se measurement (enzymatic activity/volume) 32 U/L 5-34 Serum or plasma alanine aminotransferase measurement (enzymatic activity/volume) 24 U/L 0-55 Serum or plasma protein measurement (mass/volume) 7.1 g/dL 6.4-8.2 Serum or plasma albumin measurement (mass/volume) 3.3 g/dL 3.2-4.5 Magnesium - 11/08/16 13:49 Magnesium 1.5 mg/dL 1.8-2.4 Ammonia - 11/08/16 13:49 Ammonia 45 umol/L 11-32 FK 506 - 11/08/16 13:49 Tacrolimus blood 12.2 % NRG Complete blood count (CBC) with automate d white blood cell (WBC) differential - 12/21/16 14:40 Blood leukocytes automated count (number/volume) 7.8 10*3/uL 4.3-11.0 Blood erythrocytes automated count (number/volume) 3.73 10*6/uL 4.35-5.85 Venous blood hemoglobin measurement (mass/volume) 11.9 g/dL 13.3-17.7 Blood hematocrit (volume fraction) 35 % 40-54 Automated erythrocyte mean corpuscular volume 93 [ foz_us] 80-99 Automated erythrocyte mean corpuscular h emoglobin (mass per erythrocyte) 32 pg 25-34 Automated erythrocyte mean corpuscular h emoglobin concentration measurement (mass/volume) 35 g/dL 32-36 Automated erythrocyte distribution width ratio 14. 6 % 10.0- 14.5 Automated blood platelet count (count/volume) 104 10*3/uL [...] 10*3 1.0-4.0 Blood monocytes automated count (number/volume) 1. 1 10*3 0.0-1.0 Automated eosinophil count 1.0 10*3/uL 0 .0-0.3 Automated blood basophil count (count/volume) 0.1 10*3/uL 0.0-0.1 Complete urinalysis with reflex to cultu re - 12/21/16 14:40 Urine color determination YELLOW NRG Urine clarity determination CLEAR NR G Urine pH measurement by test strip 5 5-9 Specific gravity of urine by test strip 1.020 1.016-1.022 Urine protein assay by test strip, semi-quantitative 3+ NEGATIVE Urine glucose detection by automated test strip NE GATIVE NEGATIVE Erythrocytes detection in urine sediment by light micr oscopy 1+ NEGATIVE Urine ketones detection by automated test strip NE GATIVE NEGATIVE Urine nitrite detection by test strip NEGATIVE NEGATIVE Urine total bilirubin detection by test strip NEGA TIVE NEGATIVE Urine urobilinogen measurement by automated test strip (mass/volume) NORMAL NORMAL Urine leukocyte esterase detection by dipstick NEG ATIVE NEGATIVE Automated urine sediment erythrocyte cou nt by microscopy (number/high power field) [HPF] NRG Automated urine sediment leukocyte count by microscopy (number/high power field) NONE NRG Bacteria detection in urine sediment by light microsco py NEGATIVE NRG Squamous epithelial cells detection in u rine sediment by light microscopy 0-2 NRG Crystals detection in urine sediment by light microsco py NONE NRG Casts detection in urine sediment by light microscopy NONE NRG Mucus detection in urine sediment by light microscopy NEGATIVE NRG Complete urinalysis with reflex to culture NO NRG Liver function panel (serum or plasma al k phos, alb, total and direct bili, total protein, ALT, AST) - 12/21/16 14:40 Serum or plasma total bilirubin measurement (mass/volu me) 1.3 mg/dL 0.1-1.0 Serum or plasma alkaline phosphatase jase surement (enzymatic activity/volume) 116 U/L 40-136 Serum or plasma aspartate aminotransfera se measurement (enzymatic activity/volume) 36 U/L 5-34 Serum or plasma alanine aminotransferase measurement (enzymatic activity/volume) 22 U/L 0-55 Serum or plasma protein measurement (mass/volume) 5.9 g/dL 6.4-8.2 Serum or plasma albumin measurement (mass/volume) 3.0 g/dL 3.2-4.5 Bilirubin direct 0.5 mg/dL 0.0-0.3 Serum or plasma indirect bilirubin measurement (mass/v olume) 0.8 mg/dL NRG Serum or plasma renal function panel (Na , K, Cl, CO2, BUN, Cr, glucose,Ca, phos, alb) - 12/21/16 14:40 Serum or plasma sodium measurement (moles/volume) 138 mmol/L 135-145 Serum or plasma potassium measurement (moles/volume) 4.1 mmol/L 3.6-5.0 Serum or plasma chloride measurement (moles/volume) 111 mmol/L 98-107 Carbon dioxide 19 mmol/L 21-32 Serum or plasma anion gap determination (moles/volume) 8 mmol/L 5-14 Serum or plasma urea nitrogen measurement (mass/volume ) 23 mg/dL 7-18 Serum or plasma creatinine measurement (mass/volume) 1.68 mg/dL 0.60-1.30 Serum or plasma urea nitrogen/creatinine mass ratio 14 0-20 Serum or plasma creatinine measurement w ith calculation of estimated glomerular filtration rate 42 NRG Serum or plasma glucose measurement (mass/volume) 104 mg/dL 70-105 Serum or plasma calcium measurement (mass/volume) 8.5 mg/dL 8.5-10.1 Serum or plasma phosphate measurement (mass/volume) 3.2 mg/dL 2.3-4.7 Serum or plasma uric acid measurement (m ass/volume) - 12/21/16 14:40 Serum or plasma uric acid measurement (mass/volume) 6.5 mg/dL 2.6-7.2 Magnesium - 12/21/16 14:40 Magnesium 1.8 mg/dL 1.8-2.4 Serum or plasma creatine kinase measurem ent (enzymatic activity/volume) - 12/21/16 14:40 Serum or plasma creatine kinase measurem ent (enzymatic activity/volume) 153 U/L 30-200 Blood manual differential performed dete ction - 12/21/16 14:40 Blood monocytes/100 leukocytes 15 % NRG Manual blood segmented neutrophils/100 leukocytes 41 % NRG Blood band neutrophils/100 leukocytes 1 % NRG Manual blood lymphocytes/100 leukocytes 37 % NRG Manual eosinophils/100 leukocytes in nose 6 % NRG Manual blood basophils/100 leukocytes 0 % NRG Blood erythrocyte morphology finding identification NORMAL NRG Urine protein/creatinine mass ratio - 14:40 Urine protein measurement (mass/volume) 173 mg/dL 6-12 Urine creatinine measurement (mass/volume) 122 mg/ dL 30-125 Urine protein/creatinine mass ratio 1.42 NRG Serum or plasma intact pararthyroid horm one measurement (mass/volume) - 12/21/16 14:40 Serum or plasma intact parathyroid hormone measurement (mass/volume) 64.0 pg/mL 10.0-65.0 Bio-intact parathyroid hormone (PTH) measurement with calcium 8.3 % 8.5-10.5 25-hydroxyvitamin D measurement - 14:40 25-hydroxy vitamin D measurement 23 % 30-100 Ammonia - 12/26/16 13:45 Ammonia 39 umol/L 11-32 Complete blood count (CBC) with automate d white blood cell (WBC) differential - 01/25/17 13:20 Blood leukocytes automated count (number/volume) 9.8 10*3/uL 4.3-11.0 Blood erythrocytes automated count (number/volume) 4.01 10*6/uL 4.35-5.85 Venous blood hemoglobin measurement (mass/volume) 12.8 g/dL 13.3-17.7 Blood hematocrit (volume fraction) 38 % 40-54 Automated erythrocyte mean corpuscular volume 95 [ foz_us] 80-99 Automated erythrocyte mean corpuscular h emoglobin (mass per erythrocyte) 32 pg 25-34 Automated erythrocyte mean corpuscular h emoglobin concentration measurement (mass/volume) 34 g/dL 32-36 Automated erythrocyte distribution width ratio 14. 4 % 10.0- 14.5 Automated blood platelet count (count/volume) 127 10*3/uL [...] 10*3 1.0-4.0 Blood monocytes automated count (number/volume) 1. 4 10*3 0.0-1.0 Automated eosinophil count 1.0 10*3/uL 0 .0-0.3 Automated blood basophil count (count/volume) 0.1 10*3/uL 0.0-0.1 Complete urinalysis with reflex to cultu re - 01/25/17 13:20 Urine color determination YELLOW NRG Urine clarity determination CLEAR NR G Urine pH measurement by test strip 5 5-9 Specific gravity of urine by test strip 1.020 1.016-1.022 Urine protein assay by test strip, semi-quantitative 3+ NEGATIVE Urine glucose detection by automated test strip NE GATIVE NEGATIVE Erythrocytes detection in urine sediment by light micr oscopy 2+ NEGATIVE Urine ketones detection by automated test strip NE GATIVE NEGATIVE Urine nitrite detection by test strip NEGATIVE NEGATIVE Urine total bilirubin detection by test strip NEGA TIVE NEGATIVE Urine urobilinogen measurement by automated test strip (mass/volume) NORMAL NORMAL Urine leukocyte esterase detection by dipstick NEG ATIVE NEGATIVE Automated urine sediment erythrocyte cou nt by microscopy (number/high power field) [HPF] NRG Automated urine sediment leukocyte count by microscopy (number/high power field) [HPF] NRG Bacteria detection in urine sediment by light microsco py NEGATIVE NRG Squamous epithelial cells detection in u rine sediment by light microscopy 0-2 NRG Crystals detection in urine sediment by light microsco py NONE NRG Casts detection in urine sediment by light microscopy NONE NRG Mucus detection in urine sediment by light microscopy NEGATIVE NRG Complete urinalysis with reflex to culture NO NRG Urine protein/creatinine mass ratio - 13:20 Urine protein measurement (mass/volume) 90 mg/dL 6-12 Urine creatinine measurement (mass/volume) 130 mg/ dL 30-125 Urine protein/creatinine mass ratio 0.69 NRG Serum or plasma renal function panel (Na , K, Cl, CO2, BUN, Cr, glucose,Ca, phos, alb) - 01/25/17 13:20 Serum or plasma sodium measurement (moles/volume) 139 mmol/L 135-145 Serum or plasma potassium measurement (moles/volume) 4.2 mmol/L 3.6-5.0 Serum or plasma chloride measurement (moles/volume) 111 mmol/L 98-107 Carbon dioxide 22 mmol/L 21-32 Serum or plasma anion gap determination (moles/volume) 6 mmol/L 5-14 Serum or plasma urea nitrogen measurement (mass/volume ) 33 mg/dL 7-18 Serum or plasma creatinine measurement (mass/volume) 2.17 mg/dL 0.60-1.30 Serum or plasma urea nitrogen/creatinine mass ratio 15 NRG Serum or plasma creatinine measurement w ith calculation of estimated glomerular filtration rate 31 NRG Serum or plasma glucose measurement (mass/volume) 133 mg/dL 70-105 Serum or plasma calcium measurement (mass/volume) 8.3 mg/dL 8.5-10.1 Serum or plasma albumin measurement (mass/volume) 2.9 g/dL 3.2-4.5 Serum or plasma phosphate measurement (mass/volume) 3.2 mg/dL 2.3-4.7 Serum or plasma renal function panel (Na , K, Cl, CO2, BUN, Cr, glucose,Ca, phos, alb) - 01/30/17 16:10 Serum or plasma sodium measurement (moles/volume) 142 mmol/L 135-145 Serum or plasma potassium measurement (moles/volume) 4.1 mmol/L 3.6-5.0 Serum or plasma chloride measurement (moles/volume) 112 mmol/L 98-107 Carbon dioxide 21 mmol/L 21-32 Serum or plasma anion gap determination (moles/volume) 9 mmol/L 5-14 Serum or plasma urea nitrogen measurement (mass/volume ) 26 mg/dL 7-18 Serum or plasma creatinine measurement (mass/volume) 1.82 mg/dL 0.60-1.30 Serum or plasma urea nitrogen/creatinine mass ratio 14 NRG Serum or plasma creatinine measurement w ith calculation of estimated glomerular filtration rate 38 NRG Serum or plasma glucose measurement (mass/volume) 122 mg/dL 70-105 Serum or plasma calcium measurement (mass/volume) 8.2 mg/dL 8.5-10.1 Serum or plasma albumin measurement (mass/volume) 2.9 g/dL 3.2-4.5 Serum or plasma phosphate measurement (mass/volume) 2.4 mg/dL 2.3-4.7 Whole blood basic metabolic panel - 02/06 12/23 14:17 Serum or plasma sodium measurement (moles/volume) 141 mmol/L 135-145 Serum or plasma potassium measurement (moles/volume) 3.8 mmol/L 3.6-5.0 Serum or plasma chloride measurement (moles/volume) 108 mmol/L 98-107 Carbon dioxide 25 mmol/L 21-32 Serum or plasma anion gap determination (moles/volume) 8 mmol/L 5-14 Serum or plasma urea nitrogen measurement (mass/volume ) 22 mg/dL 7-18 Serum or plasma creatinine measurement (mass/volume) 2.05 mg/dL 0.60-1.30 Serum or plasma urea nitrogen/creatinine mass ratio 11 NRG Serum or plasma creatinine measurement w ith calculation of estimated glomerular filtration rate 33 NRG Serum or plasma glucose measurement (mass/volume) 101 mg/dL 70-105 Serum or plasma calcium measurement (mass/volume) 8.6 mg/dL 8.5-10.1 Ammonia - 02/21/17 14:17 Ammonia 88 umol/L 11-32 Urine protein/creatinine mass ratio - 14:20 Urine protein measurement (mass/volume) 32 mg/dL 6-12 Urine creatinine measurement (mass/volume) 40 mg/d L 30-125 Urine protein/creatinine mass ratio 0.80 NRG Complete urinalysis with reflex to cultu re - 02/21/17 14:20 Urine color determination YELLOW NRG Urine clarity determination CLEAR NR G Urine pH measurement by test strip 5 5-9 Specific gravity of urine by test strip 1.010 1.016-1.022 Urine protein assay by test strip, semi-quantitative 2+ NEGATIVE Urine glucose detection by automated test strip NE GATIVE NEGATIVE Erythrocytes detection in urine sediment by light micr oscopy NEGATIVE NEGATIVE Urine ketones detection by automated test strip NE GATIVE NEGATIVE Urine nitrite detection by test strip NEGATIVE NEGATIVE Urine total bilirubin detection by test strip NEGA TIVE NEGATIVE Urine urobilinogen measurement by automated test strip (mass/volume) NORMAL NORMAL Urine leukocyte esterase detection by dipstick NEG ATIVE NEGATIVE Automated urine sediment erythrocyte cou nt by microscopy (number/high power field) NONE NRG Automated urine sediment leukocyte count by microscopy (number/high power field) NONE NRG Bacteria detection in urine sediment by light microsco py NEGATIVE NRG Squamous epithelial cells detection in u rine sediment by light microscopy RARE NRG Crystals detection in urine sediment by light microsco py NONE NRG Casts detection in urine sediment by light microscopy NONE NRG Mucus detection in urine sediment by light microscopy NEGATIVE NRG Complete urinalysis with reflex to culture NO NRG Serum or plasma renal function panel (Na , K, Cl, CO2, BUN, Cr, glucose,Ca, phos, alb) - 02/21/17 14:31 Serum or plasma sodium measurement (moles/volume) 142 mmol/L 135-145 Serum or plasma potassium measurement (moles/volume) 3.8 mmol/L 3.6-5.0 Serum or plasma chloride measurement (moles/volume) 110 mmol/L 98-107 Carbon dioxide 24 mmol/L 21-32 Serum or plasma anion gap determination (moles/volume) 8 mmol/L 5-14 Serum or plasma urea nitrogen measurement (mass/volume ) 23 mg/dL 7-18 Serum or plasma creatinine measurement (mass/volume) 2.04 mg/dL 0.60-1.30 Serum or plasma urea nitrogen/creatinine mass ratio 11 NRG Serum or plasma creatinine measurement w ith calculation of estimated glomerular filtration rate 33 NRG Serum or plasma glucose measurement (mass/volume) 97 mg/dL 70-105 Serum or plasma calcium measurement (mass/volume) 8.8 mg/dL 8.5-10.1 Serum or plasma albumin measurement (mass/volume) 3.4 g/dL 3.2-4.5 Serum or plasma phosphate measurement (mass/volume) 2.7 mg/dL 2.3-4.7 Complete blood count (CBC) with automate d white blood cell (WBC) differential - 02/21/17 14:31 Blood leukocytes automated count (number/volume) 11.0 10*3/uL 4.3-11.0 Blood erythrocytes automated count (number/volume) 4.00 10*6/uL 4.35-5.85 Venous blood hemoglobin measurement (mass/volume) 12.7 g/dL 13.3-17.7 Blood hematocrit (volume fraction) 37 % 40-54 Automated erythrocyte mean corpuscular volume 93 [ foz_us] 80-99 Automated erythrocyte mean corpuscular h emoglobin (mass per erythrocyte) 32 pg 25-34 Automated erythrocyte mean corpuscular h emoglobin concentration measurement (mass/volume) 34 g/dL 32-36 Automated erythrocyte distribution width ratio 14. 1 % 10.0- 14.5 Automated blood platelet count (count/volume) 143 10*3/uL [...] 10*3 1.0-4.0 Blood monocytes automated count (number/volume) 1. 5 10*3 0.0-1.0 Automated eosinophil count 1.6 10*3/uL 0 .0-0.3 Automated blood basophil count (count/volume) 0.1 10*3/uL 0.0-0.1 Whole blood basic metabolic panel - 02/07 02/22 14:11 Serum or plasma sodium measurement (moles/volume) 143 mmol/L 135-145 Serum or plasma potassium measurement (moles/volume) 3.9 mmol/L 3.6-5.0 Serum or plasma chloride measurement (moles/volume) 115 mmol/L 98-107 Carbon dioxide 20 mmol/L 21-32 Serum or plasma anion gap determination (moles/volume) 8 mmol/L 5-14 Serum or plasma urea nitrogen measurement (mass/volume ) 18 mg/dL 7-18 Serum or plasma creatinine measurement (mass/volume) 1.71 mg/dL 0.60-1.30 Serum or plasma urea nitrogen/creatinine mass ratio 11 NRG Serum or plasma creatinine measurement w ith calculation of estimated glomerular filtration rate 41 NRG Serum or plasma glucose measurement (mass/volume) 94 mg/dL 70-105 Serum or plasma calcium measurement (mass/volume) 9.0 mg/dL 8.5-10.1 Serum or plasma renal function panel (Na , K, Cl, CO2, BUN, Cr, glucose,Ca, phos, alb) - 03/05/17 14:11 Serum or plasma sodium measurement (moles/volume) 143 mmol/L 135-145 Serum or plasma potassium measurement (moles/volume) 3.9 mmol/L 3.6-5.0 Serum or plasma chloride measurement (moles/volume) 115 mmol/L 98-107 Carbon dioxide 20 mmol/L 21-32 Serum or plasma anion gap determination (moles/volume) 8 mmol/L 5-14 Serum or plasma urea nitrogen measurement (mass/volume ) 18 mg/dL 7-18 Serum or plasma creatinine measurement (mass/volume) 1.71 mg/dL 0.60-1.30 Serum or plasma urea nitrogen/creatinine mass ratio 11 NRG Serum or plasma creatinine measurement w ith calculation of estimated glomerular filtration rate 41 NRG Serum or plasma glucose measurement (mass/volume) 94 mg/dL 70-105 Serum or plasma calcium measurement (mass/volume) 9.0 mg/dL 8.5-10.1 Serum or plasma albumin measurement (mass/volume) 3.4 g/dL 3.2-4.5 Serum or plasma phosphate measurement (mass/volume) 2.8 mg/dL 2.3-4.7 Serum or plasma renal function panel (Na , K, Cl, CO2, BUN, Cr, glucose,Ca, phos, alb) - 03/16/17 11:47 Serum or plasma sodium measurement (moles/volume) 141 mmol/L 135-145 Serum or plasma potassium measurement (moles/volume) 3.9 mmol/L 3.6-5.0 Serum or plasma chloride measurement (moles/volume) 107 mmol/L 98-107 Carbon dioxide 26 mmol/L 21-32 Serum or plasma anion gap determination (moles/volume) 8 mmol/L 5-14 Serum or plasma urea nitrogen measurement (mass/volume ) 22 mg/dL 7-18 Serum or plasma creatinine measurement (mass/volume) 1.91 mg/dL 0.60-1.30 Serum or plasma urea nitrogen/creatinine mass ratio 12 NRG Serum or plasma creatinine measurement w ith calculation of estimated glomerular filtration rate 36 NRG Serum or plasma glucose measurement (mass/volume) 143 mg/dL 70-105 Serum or plasma calcium measurement (mass/volume) 8.9 mg/dL 8.5-10.1 Serum or plasma albumin measurement (mass/volume) 3.1 g/dL 3.2-4.5 Serum or plasma phosphate measurement (mass/volume) 3.0 mg/dL 2.3-4.7 Serum or plasma creatine kinase measurem ent (enzymatic activity/volume) - 03/16/17 11:47 Serum or plasma creatine kinase measurem ent (enzymatic activity/volume) 62 U/L 30-200 FK 506 - 03/16/17 11:47 Tacrolimus blood 3.7 % NRG Complete blood count (CBC) with automate d white blood cell (WBC) differential - 03/28/17 23:42 Blood leukocytes automated count (number/volume) 18.8 10*3/uL 4.3-11.0 Blood erythrocytes automated count (number/volume) 3.66 10*6/uL 4.35-5.85 Venous blood hemoglobin measurement (mass/volume) 11.6 g/dL 13.3-17.7 Blood hematocrit (volume fraction) 34 % 40-54 Automated erythrocyte mean corpuscular volume 93 [ foz_us] 80-99 Automated erythrocyte mean corpuscular h emoglobin (mass per erythrocyte) 32 pg 25-34 Automated erythrocyte mean corpuscular h emoglobin concentration measurement (mass/volume) 34 g/dL 32-36 Automated erythrocyte distribution width ratio 14. 3 % 10.0- 14.5 Automated blood platelet count (count/volume) 137 10*3/uL [...] 10*3 1.0-4.0 Blood monocytes automated count (number/volume) 0. 8 10*3 0.0-1.0 Automated eosinophil count 0.6 10*3/uL 0 .0-0.3 Automated blood basophil count (count/volume) 0.0 10*3/uL 0.0-0.1 Blood manual differential performed dete ction - 03/28/17 23:42 Blood monocytes/100 leukocytes 1 % NRG Manual blood segmented neutrophils/100 leukocytes 68 % NRG Blood band neutrophils/100 leukocytes 13 % NRG Manual blood lymphocytes/100 leukocytes 14 % NRG Manual eosinophils/100 leukocytes in nose 2 % NRG Manual blood basophils/100 leukocytes 0 % NRG Blood lymphocytes variant/100 leukocytes 2 % NRG Blood anisocytosis detection by light microscopy S LIGHT NRG PT panel in platelet poor plasma by coag ulation assay - 03/28/17 23:42 Prothrombin time (PT) in platelet poor plasma by coagu lation assay 14.6 s 12.2-14.7 INR in platelet poor plasma or blood by coagulation as say 1.1 0.8-1.4 Activated partial thromboplastin time (a PTT) in platelet poor plasma bycoagulation assay - 03/28/17 23:42 Activated partial thromboplastin time (a PTT) in platelet poor plasma bycoagulation assay 41 s 24-35 Comprehensive metabolic panel - 03/28/17 23:42 Serum or plasma sodium measurement (moles/volume) 139 mmol/L 135-145 Serum or plasma potassium measurement (moles/volume) 4.2 mmol/L 3.6-5.0 Serum or plasma chloride measurement (moles/volume) 108 mmol/L 98-107 Carbon dioxide 22 mmol/L 21-32 Serum or plasma anion gap determination (moles/volume) 9 mmol/L 5-14 Serum or plasma urea nitrogen measurement (mass/volume ) 24 mg/dL 7-18 Serum or plasma creatinine measurement (mass/volume) 2.33 mg/dL 0.60-1.30 Serum or plasma urea nitrogen/creatinine mass ratio 10 NRG Serum or plasma creatinine measurement w ith calculation of estimated glomerular filtration rate 29 NRG Serum or plasma glucose measurement (mass/volume) 111 mg/dL 70-105 Serum or plasma calcium measurement (mass/volume) 8.1 mg/dL 8.5-10.1 Serum or plasma total bilirubin measurement (mass/volu me) 1.0 mg/dL 0.1-1.0 Serum or plasma alkaline phosphatase jase surement (enzymatic activity/volume) 130 U/L 40-136 Serum or plasma aspartate aminotransfera se measurement (enzymatic activity/volume) 72 U/L 5-34 Serum or plasma alanine aminotransferase measurement (enzymatic activity/volume) 49 U/L 0-55 Serum or plasma protein measurement (mass/volume) 6.5 g/dL 6.4-8.2 Serum or plasma albumin measurement (mass/volume) 2.8 g/dL 3.2-4.5 Ammonia - 03/28/17 23:42 Ammonia 93 umol/L 11-32 Serum or plasma salicylates measurement (mass/volume) - 03/28/17 23:42 Serum or plasma salicylates measurement (mass/volume) < mg/dL 5.0-20.0 Serum or plasma lithium measurement (mol es/volume) - 03/28/17 23:42 BNP level 208.7 pg/mL <100.0 Complete urinalysis with reflex to cultu re - 03/28/17 13:30 Urine color determination YELLOW NRG Urine clarity determination CLEAR NR G Urine pH measurement by test strip 5 5-9 Specific gravity of urine by test strip 1.025 1.016-1.022 Urine protein assay by test strip, semi-quantitative 3+ NEGATIVE Urine glucose detection by automated test strip NE GATIVE NEGATIVE Erythrocytes detection in urine sediment by light micr oscopy NEGATIVE NEGATIVE Urine ketones detection by automated test strip NE GATIVE NEGATIVE Urine nitrite detection by test strip NEGATIVE NEGATIVE Urine total bilirubin detection by test strip NEGA TIVE NEGATIVE Urine urobilinogen measurement by automated test strip (mass/volume) NORMAL NORMAL Urine leukocyte esterase detection by dipstick 1+ NEGATIVE Automated urine sediment erythrocyte cou nt by microscopy (number/high power field) NONE NRG Automated urine sediment leukocyte count by microscopy (number/high power field) RARE NRG Bacteria detection in urine sediment by light microsco py NEGATIVE NRG Squamous epithelial cells detection in u rine sediment by light microscopy 2-5 NRG Crystals detection in urine sediment by light microsco py NONE NRG Casts detection in urine sediment by light microscopy NONE NRG Mucus detection in urine sediment by light microscopy NEGATIVE NRG Complete urinalysis with reflex to culture NO NRG Urine protein/creatinine mass ratio - 13:30 Urine protein measurement (mass/volume) 66 mg/dL 6-12 Urine creatinine measurement (mass/volume) 208 mg/ dL 30-125 Urine protein/creatinine mass ratio 0.32 NRG Automated blood complete blood count (he mogram) panel - 03/28/17 13:40 Blood leukocytes automated count (number/volume) 14.4 10*3/uL 4.3-11.0 Blood erythrocytes automated count (number/volume) 3.90 10*6/uL 4.35-5.85 Venous blood hemoglobin measurement (mass/volume) 12.2 g/dL 13.3-17.7 Blood hematocrit (volume fraction) 36 % 40-54 Automated erythrocyte mean corpuscular volume 92 [ foz_us] 80-99 Automated erythrocyte mean corpuscular h emoglobin (mass per erythrocyte) 31 pg 25-34 Automated erythrocyte mean corpuscular h emoglobin concentration measurement (mass/volume) 34 g/dL 32-36 Automated erythrocyte distribution width ratio 14. 2 % 10.0- 14.5 Automated blood platelet count (count/volume) 153 10*3/uL 130-400 Automated blood platelet mean volume measurement 11.4 [foz_us] 7.4-10.4 Liver function panel (serum or plasma al k phos, alb, total and direct bili, total protein, ALT, AST) - 03/28/17 13:40 Serum or plasma total bilirubin measurement (mass/volu me) 1.2 mg/dL 0.1-1.0 Serum or plasma alkaline phosphatase jase surement (enzymatic activity/volume) 144 U/L 40-136 Serum or plasma aspartate aminotransfera se measurement (enzymatic activity/volume) 85 U/L 5-34 Serum or plasma alanine aminotransferase measurement (enzymatic activity/volume) 57 U/L 0-55 Serum or plasma protein measurement (mass/volume) 7.2 g/dL 6.4-8.2 Serum or plasma albumin measurement (mass/volume) 3.0 g/dL 3.2-4.5 Bilirubin direct 0.5 mg/dL 0.0-0.3 Serum or plasma indirect bilirubin measurement (mass/v olume) 0.7 mg/dL NRG Serum or plasma renal function panel (Na , K, Cl, CO2, BUN, Cr, glucose,Ca, phos, alb) - 03/28/17 13:40 Serum or plasma sodium measurement (moles/volume) 138 mmol/L 135-145 Serum or plasma potassium measurement (moles/volume) 4.3 mmol/L 3.6-5.0 Serum or plasma chloride measurement (moles/volume) 108 mmol/L 98-107 Carbon dioxide 23 mmol/L 21-32 Serum or plasma anion gap determination (moles/volume) 7 mmol/L 5-14 Serum or plasma urea nitrogen measurement (mass/volume ) 21 mg/dL 7-18 Serum or plasma creatinine measurement (mass/volume) 2.15 mg/dL 0.60-1.30 Serum or plasma urea nitrogen/creatinine mass ratio 10 NRG Serum or plasma creatinine measurement w ith calculation of estimated glomerular filtration rate 32 NRG Serum or plasma glucose measurement (mass/volume) 99 mg/dL 70-105 Serum or plasma calcium measurement (mass/volume) 8.5 mg/dL 8.5-10.1 Serum or plasma phosphate measurement (mass/volume) 3.0 mg/dL 2.3-4.7 Serum or plasma uric acid measurement (m ass/volume) - 03/28/17 13:40 Serum or plasma uric acid measurement (mass/volume) 7.2 mg/dL 2.6-7.2 Magnesium - 03/28/17 13:40 Magnesium 1.8 mg/dL 1.8-2.4 Serum or plasma creatine kinase measurem ent (enzymatic activity/volume) - 03/28/17 13:40 Serum or plasma creatine kinase measurem ent (enzymatic activity/volume) 49 U/L 30-200 Ammonia - 03/28/17 13:40 Ammonia 65 umol/L 11-32 Serum or plasma intact pararthyroid horm one measurement (mass/volume) - 03/28/17 13:40 Serum or plasma intact parathyroid hormone measurement (mass/volume) 30.0 pg/mL 10.0-65.0 Bio-intact parathyroid hormone (PTH) measurement with calcium 8.4 % 8.5-10.5 Serum or plasma troponin i.cardiac measu rement (mass/volume) - 03/28/17 23:42 Serum or plasma troponin i.cardiac measurement (mass/v olume) < ng/mL <0.30 Arterial blood gas measurement - 7 23:49 Blood pCO2 46 mm[Hg] 35-45 Blood pO2 114 mm[Hg] 79-93 Arterial blood bicarbonate measurement (moles/volume) 24 mmol/L 23-27 Arterial blood base excess by calculation -1.3 mmo l/L -2.5-2.5 Arterial blood oxygen saturation measurement 97 % 94-100 * Inhaled oxygen flow rate 15L NRG Arterial blood pH measurement with patient temperature correction 7.33 7.37-7.43 Arterial blood carbon dioxide, total measurement (mole s/volume) 25.3 mmol/L 21.0-31.0 Body site L RAD NRG Assessment of wrist artery patency prior to arterial p uncture YES-POS NRG Setting of ventilation mode NO NR G Measurement of body temperature 97.6 NRG Blood lactic acid measurement (moles/vol ume) - 03/28/17 23:54 Blood lactic acid measurement (moles/volume) 1.13 mmol/L 0.50-2.00 Bacterial blood culture - 03/28/17 23:54 Bacterial blood culture NG NRG Bacterial blood culture - 03/29/17 00:30 Bacterial blood culture NG NRG Methicillin resistant Staphylococcus aur eus (MRSA) screening culture - 03/29/17 02:15 Methicillin resistant Staphylococcus aureus (MRSA) scr eening culture NEG NRG Complete blood count (CBC) with automate d white blood cell (WBC) differential - 03/29/17 04:30 Blood leukocytes automated count (number/volume) 13.4 10*3/uL 4.3-11.0 Blood erythrocytes automated count (number/volume) 3.53 10*6/uL 4.35-5.85 Venous blood hemoglobin measurement (mass/volume) 11.1 g/dL 13.3-17.7 Blood hematocrit (volume fraction) 33 % 40-54 Automated erythrocyte mean corpuscular volume 92 [ foz_us] 80-99 Automated erythrocyte mean corpuscular h emoglobin (mass per erythrocyte) 31 pg 25-34 Automated erythrocyte mean corpuscular h emoglobin concentration measurement (mass/volume) 34 g/dL 32-36 Automated erythrocyte distribution width ratio 14. 1 % 10.0- 14.5 Automated blood platelet count (count/volume) 105 10*3/uL [...] 10*3 1.0-4.0 Blood monocytes automated count (number/volume) 1. 2 10*3 0.0-1.0 Automated eosinophil count 0.6 10*3/uL 0 .0-0.3 Automated blood basophil count (count/volume) 0.0 10*3/uL 0.0-0.1 Whole blood basic metabolic panel - 03/10 07/25 04:30 Serum or plasma sodium measurement (moles/volume) 139 mmol/L 135-145 Serum or plasma potassium measurement (moles/volume) 4.2 mmol/L 3.6-5.0 Serum or plasma chloride measurement (moles/volume) 111 mmol/L 98-107 Carbon dioxide 21 mmol/L 21-32 Serum or plasma anion gap determination (moles/volume) 7 mmol/L 5-14 Serum or plasma urea nitrogen measurement (mass/volume ) 24 mg/dL 7-18 Serum or plasma creatinine measurement (mass/volume) 2.03 mg/dL 0.60-1.30 Serum or plasma urea nitrogen/creatinine mass ratio 12 NRG Serum or plasma creatinine measurement w ith calculation of estimated glomerular filtration rate 34 NRG Serum or plasma glucose measurement (mass/volume) 118 mg/dL 70-105 Serum or plasma calcium measurement (mass/volume) 7.6 mg/dL 8.5-10.1 Serum or plasma phosphate measurement (m ass/volume) - 03/29/17 04:30 Serum or plasma phosphate measurement (mass/volume) 2.4 mg/dL 2.3-4.7 Magnesium - 03/29/17 04:30 Magnesium 1.4 mg/dL 1.8-2.4 Complete blood count (CBC) with automate d white blood cell (WBC) differential - 03/29/17 20:35 Blood leukocytes automated count (number/volume) 14.9 10*3/uL 4.3-11.0 Blood erythrocytes automated count (number/volume) 3.02 10*6/uL 4.35-5.85 Venous blood hemoglobin measurement (mass/volume) 9.5 g/dL 13.3-17.7 Blood hematocrit (volume fraction) 29 % 40-54 Automated erythrocyte mean corpuscular volume 94 [ foz_us] 80-99 Automated erythrocyte mean corpuscular h emoglobin (mass per erythrocyte) 32 pg 25-34 Automated erythrocyte mean corpuscular h emoglobin concentration measurement (mass/volume) 33 g/dL 32-36 Automated erythrocyte distribution width ratio 14. 3 % 10.0- 14.5 Automated blood platelet count (count/volume) 82 1 0*3/uL 130-400 Automated blood platelet mean volume measurement [...] 10*3 1.0-4.0 Blood monocytes automated count (number/volume) 1. 7 10*3 0.0-1.0 Automated eosinophil count 0.8 10*3/uL 0 .0-0.3 Automated blood basophil count (count/volume) 0.0 10*3/uL 0.0-0.1 Blood lactic acid measurement (moles/vol ume) - 03/29/17 20:35 Blood lactic acid measurement [...] 5-14 Serum or plasma urea nitrogen measurement (mass/volume ) 28 mg/dL 7-18 Serum or plasma creatinine measurement (mass/volume) 2.09 mg/dL 0.60-1.30 Serum or plasma urea nitrogen/creatinine mass ratio 13 NRG Serum or plasma creatinine measurement w ith calculation of estimated glomerular filtration rate 33 NRG Serum or plasma glucose measurement (mass/volume) 89 mg/dL 70-105 Serum or plasma calcium measurement (mass/volume) 7.0 mg/dL 8.5-10.1 Serum or plasma total bilirubin measurement (mass/volu me) 0.9 mg/dL 0.1-1.0 Serum or plasma alkaline phosphatase jase surement (enzymatic activity/volume) 100 U/L 40-136 Serum or plasma aspartate aminotransfera se measurement (enzymatic activity/volume) 50 U/L 5-34 Serum or plasma alanine aminotransferase measurement (enzymatic activity/volume) 38 U/L 0-55 Serum or plasma protein measurement (mass/volume) 5.4 g/dL 6.4-8.2 Serum or plasma albumin measurement (mass/volume) 2.3 g/dL 3.2-4.5 Ammonia - 03/29/17 20:35 Ammonia 41 umol/L 11-32 Serum or plasma troponin i.cardiac measu rement (mass/volume) - 03/29/17 20:35 Serum or plasma troponin i.cardiac measurement (mass/v olume) < ng/mL <0.30 THYROID STIMULATING HORMONE - 03/29/17 2 0:35 THYROID STIMULATING HORMONE 0.64 u[iU]/mL 0.35-4.94 Ammonia - 03/29/17 20:35 Ammonia 41 umol/L 11-32 THYROID STIMULATING HORMONE - 03/29/17 2 0:35 THYROID STIMULATING HORMONE 0.64 u[iU]/mL 0.35-4.94 PT panel in platelet poor plasma by coag ulation assay - 07/16/17 09:25 Prothrombin time (PT) in platelet poor plasma by coagu lation assay 15.1 s 12.2-14.7 INR in platelet poor plasma or blood by coagulation as say 1.2 0.8-1.4 Activated partial thromboplastin time (a PTT) in platelet poor plasma bycoagulation assay - 07/16/17 09:25 Activated partial thromboplastin time (a PTT) in platelet poor plasma bycoagulation assay 40 s 24-35 Complete blood count (CBC) with automate d white blood cell (WBC) differential - 07/16/17 09:25 Blood leukocytes automated count (number/volume) 5.5 10*3/uL 4.3-11.0 Blood erythrocytes automated count (number/volume) 3.43 10*6/uL 4.35-5.85 Venous blood hemoglobin measurement (mass/volume) 10.7 g/dL 13.3-17.7 Blood hematocrit (volume fraction) 33 % 40-54 Automated erythrocyte mean corpuscular volume 96 [ foz_us] 80-99 Automated erythrocyte mean corpuscular h emoglobin (mass per erythrocyte) 31 pg 25-34 Automated erythrocyte mean corpuscular h emoglobin concentration measurement (mass/volume) 32 g/dL 32-36 Automated erythrocyte distribution width ratio 15. 4 % 10.0- 14.5 Automated blood platelet count (count/volume) 129 10*3/uL 130-400 Automated blood platelet mean volume measurement 11.1 [foz_us] 7.4-10.4 Automated blood neutrophils/100 leukocytes 70 % 42-75 Automated blood lymphocytes/100 leukocytes 17 % 12-44 Blood monocytes/100 leukocytes 10 % 0-12 Automated blood eosinophils/100 leukocytes 3 % 0-10 Automated blood basophils/100 leukocytes 1 % 0-10 Blood neutrophils automated count (number/volume) 3.8 10*3 1.8-7.8 Blood lymphocytes automated count (number/volume) 0.9 10*3 1.0-4.0 Blood monocytes automated count (number/volume) 0. 5 10*3 0.0-1.0 Automated eosinophil count 0.2 10*3/uL 0 .0-0.3 Automated blood basophil count (count/volume) 0.0 10*3/uL 0.0-0.1 Comprehensive metabolic panel - 07/16/17 09:25 Serum or plasma sodium measurement (moles/volume) 141 mmol/L 135-145 Serum or plasma potassium measurement (moles/volume) 3.8 mmol/L 3.6-5.0 Serum or plasma chloride measurement (moles/volume) 111 mmol/L 98-107 Carbon dioxide 22 mmol/L 21-32 Serum or plasma anion gap determination (moles/volume) 8 mmol/L 5-14 Serum or plasma urea nitrogen measurement (mass/volume ) 23 mg/dL 7-18 Serum or plasma creatinine measurement (mass/volume) 1.93 mg/dL 0.60-1.30 Serum or plasma urea nitrogen/creatinine mass ratio 12 NRG Serum or plasma creatinine measurement w ith calculation of estimated glomerular filtration rate 36 NRG Serum or plasma glucose measurement (mass/volume) 117 mg/dL 70-105 Serum or plasma calcium measurement (mass/volume) 8.0 mg/dL 8.5-10.1 Serum or plasma total bilirubin measurement (mass/volu me) 1.5 mg/dL 0.1-1.0 Serum or plasma alkaline phosphatase jase surement (enzymatic activity/volume) 348 U/L 40-136 Serum or plasma aspartate aminotransfera se measurement (enzymatic activity/volume) 152 U/L 5-34 Serum or plasma alanine aminotransferase measurement (enzymatic activity/volume) 95 U/L 0-55 Serum or plasma protein measurement (mass/volume) 6.8 g/dL 6.4-8.2 Serum or plasma albumin measurement (mass/volume) 2.1 g/dL 3.2-4.5 Serum or plasma phosphate measurement (m ass/volume) - 07/16/17 09:25 Serum or plasma phosphate measurement (mass/volume) 2.1 mg/dL 2.3-4.7 Magnesium - 07/16/17 09:25 Magnesium 1.2 mg/dL 1.8-2.4 Serum or plasma ethanol measurement (mas s/volume) - 07/16/17 09:25 Serum or plasma ethanol measurement (mass/volume) < mg/dL <10 Ammonia - 07/16/17 09:53 Ammonia 155 umol/L 11-32 Blood lactic acid measurement (moles/vol ume) - 07/16/17 09:53 Blood lactic acid measurement (moles/volume) 1.37 mmol/L 0.50-2.00 Bacterial blood culture - 07/16/17 09:53 Bacterial blood culture NG NRG Influenza virus A and B antigen detectio n - 07/16/17 09:56 FLU RESULT NEGATIVE FOR INFLUENZA A AND B ANTIGENS BY IA NRG Bacterial blood culture - 07/16/17 10:01 QUANTITY OF GROWTH Isolated NRG Bacterial blood culture [id number] NRG Complete urinalysis with reflex to cultu re - 07/16/17 10:54 Urine color determination YELLOW NRG Urine clarity determination CLEAR NR G Urine pH measurement by test strip 6 5-9 Specific gravity of urine by test strip 1.010 1.016-1.022 Urine protein assay by test strip, semi-quantitative 3+ NEGATIVE Urine glucose detection by automated test strip NE GATIVE NEGATIVE Erythrocytes detection in urine sediment by light micr oscopy 3+ NEGATIVE Urine ketones detection by automated test strip NE GATIVE NEGATIVE Urine nitrite detection by test strip NEGATIVE NEGATIVE Urine total bilirubin detection by test strip NEGA TIVE NEGATIVE Urine urobilinogen measurement by automated test strip (mass/volume) NORMAL NORMAL Urine leukocyte esterase detection by dipstick NEG ATIVE NEGATIVE Automated urine sediment erythrocyte cou nt by microscopy (number/high power field) [HPF] NRG Automated urine sediment leukocyte count by microscopy (number/high power field) RARE NRG Bacteria detection in urine sediment by light microsco py NEGATIVE NRG Squamous epithelial cells detection in u rine sediment by light microscopy 2-5 NRG Crystals detection in urine sediment by light microsco py NONE NRG Casts detection in urine sediment by light microscopy NONE NRG Mucus detection in urine sediment by light microscopy NEGATIVE NRG Complete urinalysis with reflex to culture NO NRG Urine drug screening test - 07/16/17 10: 54 Urine phencyclidine detection by screening method NEGATIVE NEGATIVE Urine benzodiazepines detection by screening method NEGATIVE NEGATIVE Urine cocaine detection NEGATIVE NEGATI VE Urine amphetamines detection by screening method N EGATIVE NEGATIVE Urine methamphetamine detection by screening method NEGATIVE NEGATIVE Urine cannabinoids detection by screening method N EGATIVE NEGATIVE Urine opiates detection by screening method NEGATI VE NEGATIVE Urine barbiturates detection NEGATIVE N EGATIVE Screening urine tricyclic antidepressants detection NEGATIVE NEGATIVE Urine methadone detection by screening method NEGA TIVE NEGATIVE Urine oxycodone detection POSITIVE NEGA TIVE Urine propoxyphene detection NEGATIVE N EGATIVE CBC - 07/24/17 17:09 WHITE BLOOD CELL COUNT 10.4 Thousand/uL 3.8-10.8 RED BLOOD CELL COUNT 3.30 Million/uL 4.2 0-5.80 HEMOGLOBIN 10.4 g/dL 13.2-17.1 HEMATOCRIT 30.3 % 38.5-50.0 MCV 91.8 fL 80.0-100.0 MCH 31.5 pg 27.0-33.0 MCHC 34.3 g/dL 32.0-36.0 RDW 13.5 % 11.0-15.0 PLATELET COUNT 151 Thousand/uL 140-400 MPV 11.8 fL 7.5-12.5 ABSOLUTE NEUTROPHILS 4618 cells/uL 1500- 7800 ABSOLUTE LYMPHOCYTES 2756 cells/uL 850-3 900 ABSOLUTE MONOCYTES 1862 cells/uL 200-950 ABSOLUTE EOSINOPHILS 1071 cells/uL 15-50 0 ABSOLUTE BASOPHILS 94 cells/uL 0-200 NEUTROPHILS 44.4 % NRG LYMPHOCYTES 26.5 % NRG MONOCYTES 17.9 % NRG EOSINOPHILS 10.3 % NRG BASOPHILS 0.9 % NRG Complete blood count (CBC) with automate d white blood cell (WBC) differential - 08/07/17 07:34 Blood leukocytes automated count (number/volume) 10.0 10*3/uL 4.3-11.0 Blood erythrocytes automated count (number/volume) 3.67 10*6/uL 4.35-5.85 Venous blood hemoglobin measurement (mass/volume) 11.6 g/dL 13.3-17.7 Blood hematocrit (volume fraction) 34 % 40-54 Automated erythrocyte mean corpuscular volume 92 [ foz_us] 80-99 Automated erythrocyte mean corpuscular h emoglobin (mass per erythrocyte) 32 pg 25-34 Automated erythrocyte mean corpuscular h emoglobin concentration measurement (mass/volume) 34 g/dL 32-36 Automated erythrocyte distribution width ratio 14. 4 % 10.0- 14.5 Automated blood platelet count (count/volume) 156 10*3/uL 130-400 Automated blood platelet mean volume measurement 10.3 [foz_us] 7.4-10.4 Automated blood neutrophils/100 leukocytes 42 % 42-75 Automated blood lymphocytes/100 leukocytes 30 % 12-44 Blood monocytes/100 leukocytes 15 % 0-12 Automated blood eosinophils/100 leukocytes 12 % 0-10 Automated blood basophils/100 leukocytes 1 % 0-10 Blood neutrophils automated count (number/volume) 4.2 10*3 1.8-7.8 Blood lymphocytes automated count (number/volume) 3.0 10*3 1.0-4.0 Blood monocytes automated count (number/volume) 1. 5 10*3 0.0-1.0 Automated eosinophil count 1.2 10*3/uL 0 .0-0.3 Automated blood basophil count (count/volume) 0.1 10*3/uL 0.0-0.1 Serum or plasma renal function panel (Na , K, Cl, CO2, BUN, Cr, glucose,Ca, phos, alb) - 08/07/17 07:34 Serum or plasma sodium measurement (moles/volume) 136 mmol/L 135-145 Serum or plasma potassium measurement (moles/volume) 3.9 mmol/L 3.6-5.0 Serum or plasma chloride measurement (moles/volume) 107 mmol/L 98-107 Carbon dioxide 22 mmol/L 21-32 Serum or plasma anion gap determination (moles/volume) 7 mmol/L 5-14 Serum or plasma urea nitrogen measurement (mass/volume ) 24 mg/dL 7-18 Serum or plasma creatinine measurement (mass/volume) 2.59 mg/dL 0.60-1.30 Serum or plasma urea nitrogen/creatinine mass ratio 9 NRG Serum or plasma creatinine measurement w ith calculation of estimated glomerular filtration rate 25 NRG Serum or plasma glucose measurement (mass/volume) 85 mg/dL 70-105 Serum or plasma calcium measurement (mass/volume) 7.8 mg/dL 8.5-10.1 Serum or plasma albumin measurement (mass/volume) 2.1 g/dL 3.2-4.5 Serum or plasma phosphate measurement (mass/volume) 3.3 mg/dL 2.3-4.7 Serum or plasma uric acid measurement (m ass/volume) - 08/07/17 07:34 Serum or plasma uric acid measurement (mass/volume) 8.0 mg/dL 2.6-7.2 Serum or plasma creatine kinase measurem ent (enzymatic activity/volume) - 08/07/17 07:34 Serum or plasma creatine kinase measurem ent (enzymatic activity/volume) 100 U/L 30-200 FK 506 - 08/07/17 07:34 Tacrolimus blood 10.9 % NRG Magnesium - 08/07/17 07:34 Magnesium 1.5 mg/dL 1.8-2.4 Complete urinalysis with reflex to cultu re - 08/07/17 08:24 Urine color determination YELLOW NRG Urine clarity determination CLEAR NR G Urine pH measurement by test strip 5 5-9 Specific gravity of urine by test strip 1.020 1.016-1.022 Urine protein assay by test strip, semi-quantitative 3+ NEGATIVE Urine glucose detection by automated test strip NE GATIVE NEGATIVE Erythrocytes detection in urine sediment by light micr oscopy 1+ NEGATIVE Urine ketones detection by automated test strip NE GATIVE NEGATIVE Urine nitrite detection by test strip NEGATIVE NEGATIVE Urine total bilirubin detection by test strip NEGA TIVE NEGATIVE Urine urobilinogen measurement by automated test strip (mass/volume) NORMAL NORMAL Urine leukocyte esterase detection by dipstick NEG ATIVE NEGATIVE Automated urine sediment erythrocyte cou nt by microscopy (number/high power field) [HPF] NRG Automated urine sediment leukocyte count by microscopy (number/high power field) [HPF] NRG Bacteria detection in urine sediment by light microsco py TRACE NRG Squamous epithelial cells detection in u rine sediment by light microscopy 5-10 NRG Crystals detection in urine sediment by light microsco py NONE NRG Casts detection in urine sediment by light microscopy PRESENT NRG Mucus detection in urine sediment by light microscopy NEGATIVE NRG Complete urinalysis with reflex to culture NO NRG Hyaline casts detection in urine sediment by light bin roscopy 5-10 NRG Ammonia - 08/13/17 09:02 Ammonia 48 umol/L 11-32 FK 506 - 08/13/17 09:02 Tacrolimus blood 6.8 % NRG PDM - ATS (PROFILE 8 WITH CONFIRMATION) - 10/08/17 13:28 Prescribed Drug 1 Percocet(TM) NRG Creatinine 255.2 mg/dL > or = 20.0 pH 6.21 4.5 - 9.0 Oxidant NEGATIVE mcg/mL <200 Amphetamines NEGATIVE ng/mL <500 medMATCH Amphetamines CONSISTENT NRG Benzodiazepines NEGATIVE ng/mL <100 medMATCH Benzodiazepines CONSISTENT NRG Marijuana Metabolite NEGATIVE ng/mL <20 medMATCH Marijuana Metab CONSISTENT NRG Cocaine Metabolite NEGATIVE ng/mL <150 medMATCH Cocaine Metab CONSISTENT NRG Opiates NEGATIVE CONFIRMED ng/mL <100 Oxycodone POSITIVE ng/mL <100 COMMENT NRG Buprenorphine NEGATIVE ng/mL <5 MDMA NEGATIVE ng/mL <500 medMATCH MDMA CONSISTENT NRG Alcohol Metabolites NEGATIVE ng/mL <500 medMATCH Alcohol Metab CONSISTENT NRG 6 Acetylmorphine NEGATIVE ng/mL <10 medMATCH 6 Acetylmorphine CONSISTENT NR G Codeine NEGATIVE ng/mL <50 medMATCH Codeine CONSISTENT NRG Hydrocodone NEGATIVE ng/mL <50 medMATCH Hydrocodone CONSISTENT NRG Hydromorphone NEGATIVE ng/mL <50 medMATCH Hydromorphone CONSISTENT NRG Morphine NEGATIVE ng/mL <50 medMATCH Morphine CONSISTENT NRG Norhydrocodone NEGATIVE ng/mL <50 medMATCH Norhydrocodone CONSISTENT NRG medMATCH Buprenorphine CONSISTENT NRG Noroxycodone >97016 ng/mL <50 medMATCH Noroxycodone CONSISTENT NRG Oxycodone >42974 ng/mL <50 medMATCH Oxycodone CONSISTENT NRG Oxymorphone 53331 ng/mL <50 medMATCH Oxymorphone CONSISTENT NRG Complete blood count (CBC) with automate d white blood cell (WBC) differential - 10/15/17 13:20 Blood leukocytes automated count (number/volume) 9.6 10*3/uL 4.3-11.0 Blood erythrocytes automated count (number/volume) 3.36 10*6/uL 4.35-5.85 Venous blood hemoglobin measurement (mass/volume) 10.8 g/dL 13.3-17.7 Blood hematocrit (volume fraction) 32 % 40-54 Automated erythrocyte mean corpuscular volume 95 [ foz_us] 80-99 Automated erythrocyte mean corpuscular h emoglobin (mass per erythrocyte) 32 pg 25-34 Automated erythrocyte mean corpuscular h emoglobin concentration measurement (mass/volume) 34 g/dL 32-36 Automated erythrocyte distribution width ratio 16. 4 % 10.0- 14.5 Automated blood platelet count (count/volume) 122 10*3/uL 130-400 Automated blood platelet mean volume measurement 11.2 [foz_us] 7.4-10.4 Automated blood neutrophils/100 leukocytes 54 % 42-75 Automated blood lymphocytes/100 leukocytes 19 % 12-44 Blood monocytes/100 leukocytes 17 % 0-12 Automated blood eosinophils/100 leukocytes 10 % 0-10 Automated blood basophils/100 leukocytes 0 % 0-10 Blood neutrophils automated count (number/volume) 5.2 10*3 1.8-7.8 Blood lymphocytes automated count (number/volume) 1.8 10*3 1.0-4.0 Blood monocytes automated count (number/volume) 1. 6 10*3 0.0-1.0 Automated eosinophil count 0.9 10*3/uL 0 .0-0.3 Automated blood basophil count (count/volume) 0.0 10*3/uL 0.0-0.1 Liver function panel (serum or plasma al k phos, alb, total and direct bili, total protein, ALT, AST) - 10/15/17 13:20 Serum or plasma total bilirubin measurement (mass/volu me) 0.7 mg/dL 0.1-1.0 Serum or plasma alkaline phosphatase jase surement (enzymatic activity/volume) 180 U/L 40-136 Serum or plasma aspartate aminotransfera se measurement (enzymatic activity/volume) 51 U/L 5-34 Serum or plasma alanine aminotransferase measurement (enzymatic activity/volume) 48 U/L 0-55 Serum or plasma protein measurement (mass/volume) 6.6 g/dL 6.4-8.2 Serum or plasma albumin measurement (mass/volume) 2.4 g/dL 3.2-4.5 Bilirubin direct 0.4 mg/dL 0.0-0.3 Serum or plasma indirect bilirubin measurement (mass/v olume) 0.3 mg/dL NRG Serum or plasma renal function panel (Na , K, Cl, CO2, BUN, Cr, glucose,Ca, phos, alb) - 10/15/17 13:20 Serum or plasma sodium measurement (moles/volume) 141 mmol/L 135-145 Serum or plasma potassium measurement (moles/volume) 4.5 mmol/L 3.6-5.0 Serum or plasma chloride measurement (moles/volume) 111 mmol/L 98-107 Carbon dioxide 23 mmol/L 21-32 Serum or plasma anion gap determination (moles/volume) 7 mmol/L 5-14 Serum or plasma urea nitrogen measurement (mass/volume ) 30 mg/dL 7-18 Serum or plasma creatinine measurement (mass/volume) 2.56 mg/dL 0.60-1.30 Serum or plasma urea nitrogen/creatinine mass ratio 12 NRG Serum or plasma creatinine measurement w ith calculation of estimated glomerular filtration rate 26 NRG Serum or plasma glucose measurement (mass/volume) 102 mg/dL 70-105 Serum or plasma calcium measurement (mass/volume) 8.2 mg/dL 8.5-10.1 Serum or plasma phosphate measurement (mass/volume) 2.8 mg/dL 2.3-4.7 Serum or plasma uric acid measurement (m ass/volume) - 10/15/17 13:20 Serum or plasma uric acid measurement (mass/volume) 7.0 mg/dL 2.6-7.2 Magnesium - 10/15/17 13:20 Magnesium 1.7 mg/dL 1.8-2.4 Serum or plasma creatine kinase measurem ent (enzymatic activity/volume) - 10/15/17 13:20 Serum or plasma creatine kinase measurem ent (enzymatic activity/volume) 45 U/L 30-200 FK 506 - 10/15/17 13:20 Tacrolimus blood 5.4 % NRG Complete urinalysis with reflex to cultu re - 10/15/17 13:30 Urine color determination YELLOW NRG Urine clarity determination CLEAR NR G Urine pH measurement by test strip 5 5-9 Specific gravity of urine by test strip 1.020 1.016-1.022 Urine protein assay by test strip, semi-quantitative 3+ NEGATIVE Urine glucose detection by automated test strip NE GATIVE NEGATIVE Erythrocytes detection in urine sediment by light micr oscopy 2+ NEGATIVE Urine ketones detection by automated test strip NE GATIVE NEGATIVE Urine nitrite detection by test strip NEGATIVE NEGATIVE Urine total bilirubin detection by test strip NEGA TIVE NEGATIVE Urine urobilinogen measurement by automated test strip (mass/volume) NORMAL NORMAL Urine leukocyte esterase detection by dipstick NEG ATIVE NEGATIVE Automated urine sediment erythrocyte cou nt by microscopy (number/high power field) NONE NRG Automated urine sediment leukocyte count by microscopy (number/high power field) RARE NRG Bacteria detection in urine sediment by light microsco py NEGATIVE NRG Squamous epithelial cells detection in u rine sediment by light microscopy 0-2 NRG Crystals detection in urine sediment by light microsco py NONE NRG Casts detection in urine sediment by light microscopy NONE NRG Mucus detection in urine sediment by light microscopy NEGATIVE NRG Complete urinalysis with reflex to culture NO NRG Urine protein/creatinine mass ratio - 13:30 Urine protein measurement (mass/volume) 117 mg/dL 6-12 Urine creatinine measurement (mass/volume) 126 mg/ dL 30-125 Urine protein/creatinine mass ratio 0.93 NRG Urine drug screening test - 10/24/17 10: 00 Urine phencyclidine detection by screening method NEGATIVE NEGATIVE Urine benzodiazepines detection by screening method NEGATIVE NEGATIVE Urine cocaine detection NEGATIVE NEGATI VE Urine amphetamines detection by screening method N EGATIVE NEGATIVE Urine methamphetamine detection by screening method NEGATIVE NEGATIVE Urine cannabinoids detection by screening method N EGATIVE NEGATIVE Urine opiates detection by screening method NEGATI VE NEGATIVE Urine barbiturates detection NEGATIVE N EGATIVE Screening urine tricyclic antidepressants detection NEGATIVE NEGATIVE Urine methadone detection by screening method NEGA TIVE NEGATIVE Urine oxycodone detection POSITIVE NEGA TIVE Urine propoxyphene detection NEGATIVE N EGATIVE Complete blood count (CBC) with automate d white blood cell (WBC) differential - 10/24/17 10:17 Blood leukocytes automated count (number/volume) 8.6 10*3/uL 4.3-11.0 Blood erythrocytes automated count (number/volume) 3.18 10*6/uL 4.35-5.85 Venous blood hemoglobin measurement (mass/volume) 9.9 g/dL 13.3-17.7 Blood hematocrit (volume fraction) 30 % 40-54 Automated erythrocyte mean corpuscular volume 95 [ foz_us] 80-99 Automated erythrocyte mean corpuscular h emoglobin (mass per erythrocyte) 31 pg 25-34 Automated erythrocyte mean corpuscular h emoglobin concentration measurement (mass/volume) 33 g/dL 32-36 Automated erythrocyte distribution width ratio 16. 7 % 10.0- 14.5 Automated blood platelet count (count/volume) 118 10*3/uL 130-400 Automated blood platelet mean volume measurement 11.2 [foz_us] 7.4-10.4 Automated blood neutrophils/100 leukocytes 38 % 42-75 Automated blood lymphocytes/100 leukocytes 30 % 12-44 Blood monocytes/100 leukocytes 23 % 0-12 Automated blood eosinophils/100 leukocytes 9 % 0-10 Automated blood basophils/100 leukocytes 0 % 0-10 Blood neutrophils automated count (number/volume) 3.3 10*3 1.8-7.8 Blood lymphocytes automated count (number/volume) 2.6 10*3 1.0-4.0 Blood monocytes automated count (number/volume) 2. 0 10*3 0.0-1.0 Automated eosinophil count 0.8 10*3/uL 0 .0-0.3 Automated blood basophil count (count/volume) 0.0 10*3/uL 0.0-0.1 Liver function panel (serum or plasma al k phos, alb, total and direct bili, total protein, ALT, AST) - 10/24/17 10:17 Serum or plasma total bilirubin measurement (mass/volu me) 0.7 mg/dL 0.1-1.0 Serum or plasma alkaline phosphatase jase surement (enzymatic activity/volume) 169 U/L 40-136 Serum or plasma aspartate aminotransfera se measurement (enzymatic activity/volume) 46 U/L 5-34 Serum or plasma alanine aminotransferase measurement (enzymatic activity/volume) 40 U/L 0-55 Serum or plasma protein measurement (mass/volume) 6.6 g/dL 6.4-8.2 Serum or plasma albumin measurement (mass/volume) 2.5 g/dL 3.2-4.5 Bilirubin direct 0.4 mg/dL 0.0-0.3 Serum or plasma indirect bilirubin measurement (mass/v olume) 0.3 mg/dL NRG Blood manual differential performed dete ction - 10/24/17 10:17 Blood monocytes/100 leukocytes 10 % NRG Manual blood segmented neutrophils/100 leukocytes 49 % NRG Blood band neutrophils/100 leukocytes 0 % NRG Manual blood lymphocytes/100 leukocytes 28 % NRG Manual eosinophils/100 leukocytes in nose 12 % NRG Manual blood basophils/100 leukocytes 1 % NRG Blood anisocytosis detection by light microscopy S LIGHT NRG PDM - 09 PANEL (PROFILE 1) - 01/10/18 14 :13 Prescribed Drug 1 OxyContin(TM) NRG Creatinine 174.9 mg/dL > or = 20.0 pH 4.64 4.5 - 9.0 Oxidant NEGATIVE mcg/mL <200 Amphetamines NEGATIVE ng/mL <500 medMATCH Amphetamines CONSISTENT NRG Benzodiazepines NEGATIVE ng/mL <100 medMATCH Benzodiazepines CONSISTENT NRG Marijuana Metabolite NEGATIVE ng/mL <20 medMATCH Marijuana Metab CONSISTENT NRG Cocaine Metabolite NEGATIVE ng/mL <150 medMATCH Cocaine Metab CONSISTENT NRG Opiates NEGATIVE CONFIRMED ng/mL <100 Oxycodone POSITIVE ng/mL <100 COMMENT NRG Codeine NEGATIVE ng/mL <50 medMATCH Codeine CONSISTENT NRG Hydrocodone NEGATIVE ng/mL <50 medMATCH Hydrocodone CONSISTENT NRG Hydromorphone NEGATIVE ng/mL <50 medMATCH Hydromorphone CONSISTENT NRG Morphine NEGATIVE ng/mL <50 medMATCH Morphine CONSISTENT NRG Norhydrocodone NEGATIVE ng/mL <50 medMATCH Norhydrocodone CONSISTENT NRG Prescribed Drug 2 Oxycodone NRG Noroxycodone 49507 ng/mL <50 medMATCH Noroxycodone CONSISTENT NRG Oxycodone 81690 ng/mL <50 medMATCH Oxycodone CONSISTENT NRG Oxymorphone 3584 ng/mL <50 medMATCH Oxymorphone CONSISTENT NRG Barbiturates NEGATIVE ng/mL <300 medMATCH Barbiturates CONSISTENT NRG Methadone Metabolite NEGATIVE ng/mL <100 medMATCH Methadone Metab CONSISTENT NRG Phencyclidine NEGATIVE ng/mL <25 medMATCH Phencyclidine CONSISTENT NRG Automated blood complete blood count (he mogram) panel - 03/14/18 09:55 Blood leukocytes automated count (number/volume) 9.8 10*3/uL 4.3-11.0 Blood erythrocytes automated count (number/volume) 3.47 10*6/uL 4.35-5.85 Venous blood hemoglobin measurement (mass/volume) 11.3 g/dL 13.3-17.7 Blood hematocrit (volume fraction) 33 % 40-54 Automated erythrocyte mean corpuscular volume 95 [ foz_us] 80-99 Automated erythrocyte mean corpuscular h emoglobin (mass per erythrocyte) 33 pg 25-34 Automated erythrocyte mean corpuscular h emoglobin concentration measurement (mass/volume) 35 g/dL 32-36 Automated erythrocyte distribution width ratio 14. 2 % 10.0- 14.5 Automated blood platelet count (count/volume) 113 10*3/uL 130-400 Automated blood platelet mean volume measurement 11.9 [foz_us] 7.4-10.4 Liver function panel (serum or plasma al k phos, alb, total and direct bili, total protein, ALT, AST) - 03/14/18 09:55 Serum or plasma total bilirubin measurement (mass/volu me) 0.8 mg/dL 0.1-1.0 Serum or plasma alkaline phosphatase jase surement (enzymatic activity/volume) 140 U/L 40-136 Serum or plasma aspartate aminotransfera se measurement (enzymatic activity/volume) 25 U/L 5-34 Serum or plasma alanine aminotransferase measurement (enzymatic activity/volume) 19 U/L 0-55 Serum or plasma protein measurement (mass/volume) 7.0 g/dL 6.4-8.2 Serum or plasma albumin measurement (mass/volume) 2.9 g/dL 3.2-4.5 Bilirubin direct 0.4 mg/dL 0.0-0.3 Serum or plasma indirect bilirubin measurement (mass/v olume) 0.4 mg/dL NRG Serum or plasma renal function panel (Na , K, Cl, CO2, BUN, Cr, glucose,Ca, phos, alb) - 03/14/18 09:55 Serum or plasma sodium measurement (moles/volume) 138 mmol/L 135-145 Serum or plasma potassium measurement (moles/volume) 4.0 mmol/L 3.6-5.0 Serum or plasma chloride measurement (moles/volume) 110 mmol/L 98-107 Carbon dioxide 22 mmol/L 21-32 Serum or plasma anion gap determination (moles/volume) 6 mmol/L 5-14 Serum or plasma urea nitrogen measurement (mass/volume ) 27 mg/dL 7-18 Serum or plasma creatinine measurement (mass/volume) 2.90 mg/dL 0.60-1.30 Serum or plasma urea nitrogen/creatinine mass ratio 9 NRG Serum or plasma creatinine measurement w ith calculation of estimated glomerular filtration rate 22 NRG Serum or plasma glucose measurement (mass/volume) 96 mg/dL 70-105 Serum or plasma calcium measurement (mass/volume) 8.2 mg/dL 8.5-10.1 Serum or plasma phosphate measurement (mass/volume) 3.1 mg/dL 2.3-4.7 Serum or plasma uric acid measurement (m ass/volume) - 18 09:55 Serum or plasma uric acid measurement (mass/volume) 7.9 mg/dL 2.6-7.2 Magnesium - 18 09:55 Magnesium 1.6 mg/dL 1.8-2.4 Lactate dehydrogenase 1 [enzymatic activ ity/volume] in serum or plasma - 18 09:55 Lactate dehydrogenase 1 [enzymatic activ ity/volume] in serum or plasma 248 U/L 125-220 Serum or plasma creatine kinase measurem ent (enzymatic activity/volume) - 03/14/18 09:55 Serum or plasma creatine kinase measurem ent (enzymatic activity/volume) 52 U/L 30-200 Serum or plasma intact pararthyroid horm one measurement (mass/volume) - 03/14/18 09:55 Serum or plasma intact parathyroid hormone measurement (mass/volume) 180.4 pg/mL 9.0-77.0 Bio-intact parathyroid hormone (PTH) measurement with calcium 8.0 % 8.5-10.5 Complete blood count (CBC) with automate d white blood cell (WBC) differential - 04/15/18 03:00 Blood leukocytes automated count (number/volume) 14.8 10*3/uL 4.3-11.0 Blood erythrocytes automated count (number/volume) 2.10 10*6/uL 4.35-5.85 Venous blood hemoglobin measurement (mass/volume) 6.8 g/dL 13.3-17.7 Blood hematocrit (volume fraction) 20 % 40-54 Automated erythrocyte mean corpuscular volume 95 [ foz_us] 80-99 Automated erythrocyte mean corpuscular h emoglobin (mass per erythrocyte) 32 pg 25-34 Automated erythrocyte mean corpuscular h emoglobin concentration measurement (mass/volume) 34 g/dL 32-36 Automated erythrocyte distribution width ratio 14. 9 % 10.0- 14.5 Automated blood platelet count (count/volume) 133 10*3/uL 130-400 Automated blood platelet mean volume measurement 11.4 [foz_us] 7.4-10.4 Automated blood neutrophils/100 leukocytes 76 % 42-75 Automated blood lymphocytes/100 leukocytes 16 % 12-44 Blood monocytes/100 leukocytes 7 % 0-12 Automated blood eosinophils/100 leukocytes 2 % 0-10 Automated blood basophils/100 leukocytes 0 % 0-10 Blood neutrophils automated count (number/volume) 11.2 10*3 1.8-7.8 Blood lymphocytes automated count (number/volume) 2.4 10*3 1.0-4.0 Blood monocytes automated count (number/volume) 1. 0 10*3 0.0-1.0 Automated eosinophil count 0.3 10*3/uL 0 .0-0.3 Automated blood basophil count (count/volume) 0.0 10*3/uL 0.0-0.1 PT panel in platelet poor plasma by coag ulation assay - 04/15/18 03:00 Prothrombin time (PT) in platelet poor plasma by coagu lation assay 17.5 s 12.2-14.7 INR in platelet poor plasma or blood by coagulation as say 1.4 0.8-1.4 Activated partial thromboplastin time (a PTT) in platelet poor plasma bycoagulation assay - 04/15/18 03:00 Activated partial thromboplastin time (a PTT) in platelet poor plasma bycoagulation assay 33 s 24-35 Comprehensive metabolic panel - 04/15/18 03:00 Serum or plasma sodium measurement (moles/volume) 138 mmol/L 135-145 Serum or plasma potassium measurement (moles/volume) 6.2 mmol/L 3.6-5.0 Serum or plasma chloride measurement (moles/volume) 113 mmol/L 98-107 Carbon dioxide 18 mmol/L 21-32 Serum or plasma anion gap determination (moles/volume) 7 mmol/L 5-14 Serum or plasma urea nitrogen measurement (mass/volume ) 56 mg/dL 7-18 Serum or plasma creatinine measurement (mass/volume) 3.07 mg/dL 0.60-1.30 Serum or plasma urea nitrogen/creatinine mass ratio 18 NRG Serum or plasma creatinine measurement w ith calculation of estimated glomerular filtration rate 21 NRG Serum or plasma glucose measurement (mass/volume) 121 mg/dL 70-105 Serum or plasma calcium measurement (mass/volume) 7.3 mg/dL 8.5-10.1 Serum or plasma total bilirubin measurement (mass/volu me) 0.6 mg/dL 0.1-1.0 Serum or plasma alkaline phosphatase jase surement (enzymatic activity/volume) 62 U/L 40-136 Serum or plasma aspartate aminotransfera se measurement (enzymatic activity/volume) 10 U/L 5-34 Serum or plasma alanine aminotransferase measurement (enzymatic activity/volume) 8 U/L 0-55 Serum or plasma protein measurement (mass/volume) 4.5 g/dL 6.4-8.2 Serum or plasma albumin measurement (mass/volume) 1.9 g/dL 3.2-4.5 CALCIUM CORRECTED 9.0 mg/dL 8.5-10.1 Lipase - 04/15/18 03:00 Lipase 20 U/L 8-78 Ammonia - 04/15/18 03:00 Ammonia 194 umol/L 11-32 Blood manual differential performed dete ction - 04/15/18 03:00 Blood monocytes/100 leukocytes 3 % NRG Manual blood segmented neutrophils/100 leukocytes 79 % NRG Blood band neutrophils/100 leukocytes 2 % NRG Manual blood lymphocytes/100 leukocytes 14 % NRG Manual eosinophils/100 leukocytes in nose 2 % NRG Blood hypochromia detection by light microscopy SL IGHT NRG Blood rouleaux detection by light microscopy SLIGH T NRG Blood lactic acid measurement (moles/vol ume) - 04/15/18 03:30 Blood lactic acid measurement (moles/volume) 1.27 mmol/L 0.50-2.00 FRESH FROZEN PLASMA - 04/15/18 03:30 FRESH FROZEN PLASMA TRANSFUSE D 04/15/18 0443 NRG RED CELLS LEUKO REDUCED AS1 - 04/15/18 0 3:30 RED CELLS LEUKO REDUCED AS1 T RANSFUSED 04/15/18 0428 NRG Blood type T Indirect antibody screen pa kyleigh - 04/15/18 03:30 ABO+Rh group OP NRG Transfusion band number [id number] NRG Blood group antibody screen NEGATIVE NR G Bacterial blood culture - 04/15/18 03:30 QUANTITY OF GROWTH . NRG Bacterial blood culture SEE COMMEN NR Bacterial blood culture - 04/15/18 03:45 Bacterial blood culture NG NR Complete blood count (CBC) with automate d white blood cell (WBC) differential - 05/21/18 10:28 Blood leukocytes automated count (number/volume) 9.8 10*3/uL 4.3-11.0 Blood erythrocytes automated count (number/volume) 2.84 10*6/uL 4.35-5.85 Venous blood hemoglobin measurement (mass/volume) 8.7 g/dL 13.3-17.7 Blood hematocrit (volume fraction) 27 % 40-54 Automated erythrocyte mean corpuscular volume 93 [ foz_us] 80-99 Automated erythrocyte mean corpuscular h emoglobin (mass per erythrocyte) 31 pg 25-34 Automated erythrocyte mean corpuscular h emoglobin concentration measurement (mass/volume) 33 g/dL 32-36 Automated erythrocyte distribution width ratio 15. 2 % 10.0- 14.5 Automated blood platelet count (count/volume) 130 10*3/uL 130-400 Automated blood platelet mean volume measurement 11.4 [foz_us] 7.4-10.4 Automated blood neutrophils/100 leukocytes 39 % 42-75 Automated blood lymphocytes/100 leukocytes 29 % 12-44 Blood monocytes/100 leukocytes 20 % 0-12 Automated blood eosinophils/100 leukocytes 12 % 0-10 Automated blood basophils/100 leukocytes 0 % 0-10 Blood neutrophils automated count (number/volume) 3.8 10*3 1.8-7.8 Blood lymphocytes automated count (number/volume) 2.9 10*3 1.0-4.0 Blood monocytes automated count (number/volume) 1. 9 10*3 0.0-1.0 Automated eosinophil count 1.1 10*3/uL 0 .0-0.3 Automated blood basophil count (count/volume) 0.0 10*3/uL 0.0-0.1 Blood manual differential performed dete ction - 05/21/18 10:28 Blood monocytes/100 leukocytes 19 % NRG Manual blood segmented neutrophils/100 leukocytes 42 % NRG Manual blood lymphocytes/100 leukocytes 27 % NRG Manual eosinophils/100 leukocytes in nose 12 % NRG Blood poikilocytosis detection by light microscopy SLIGHT NRG Complete blood count (CBC) with automate d white blood cell (WBC) differential - 06/28/18 14:06 Blood leukocytes automated count (number/volume) 6.9 10*3/uL 4.3-11.0 Blood erythrocytes automated count (number/volume) 3.06 10*6/uL 4.35-5.85 Venous blood hemoglobin measurement (mass/volume) 9.4 g/dL 13.3-17.7 Blood hematocrit (volume fraction) 30 % 40-54 Automated erythrocyte mean corpuscular volume 98 [ foz_us] 80-99 Automated erythrocyte mean corpuscular h emoglobin (mass per erythrocyte) 31 pg 25-34 Automated erythrocyte mean corpuscular h emoglobin concentration measurement (mass/volume) 31 g/dL 32-36 Automated erythrocyte distribution width ratio 17. 2 % 10.0- 14.5 Automated blood platelet count (count/volume) 110 10*3/uL 130-400 Automated blood platelet mean volume measurement 11.0 [foz_us] 7.4-10.4 Automated blood neutrophils/100 leukocytes 54 % 42-75 Automated blood lymphocytes/100 leukocytes 24 % 12-44 Blood monocytes/100 leukocytes 15 % 0-12 Automated blood eosinophils/100 leukocytes 6 % 0-10 Automated blood basophils/100 leukocytes 1 % 0-10 Blood neutrophils automated count (number/volume) 3.7 10*3 1.8-7.8 Blood lymphocytes automated count (number/volume) 1.7 10*3 1.0-4.0 Blood monocytes automated count (number/volume) 1. 0 10*3 0.0-1.0 Automated eosinophil count 0.4 10*3/uL 0 .0-0.3 Automated blood basophil count (count/volume) 0.0 10*3/uL 0.0-0.1 IRON TEST - 06/28/18 14:06 Serum or plasma iron measurement (mass/volume) 68 % 40-180 Complete blood count (CBC) with automate d white blood cell (WBC) differential - 07/19/18 10:11 Blood leukocytes automated count (number/volume) 7.5 10*3/uL 4.3-11.0 Blood erythrocytes automated count (number/volume) 3.53 10*6/uL 4.35-5.85 Venous blood hemoglobin measurement (mass/volume) 10.7 g/dL 13.3-17.7 Blood hematocrit (volume fraction) 34 % 40-54 Automated erythrocyte mean corpuscular volume 95 [ foz_us] 80-99 Automated erythrocyte mean corpuscular h emoglobin (mass per erythrocyte) 30 pg 25-34 Automated erythrocyte mean corpuscular h emoglobin concentration measurement (mass/volume) 32 g/dL 32-36 Automated erythrocyte distribution width ratio 15. 2 % 10.0- 14.5 Automated blood platelet count (count/volume) 99 1 0*3/uL 130-400 Automated blood platelet mean volume measurement 11.6 [foz_us] 7.4-10.4 Automated blood neutrophils/100 leukocytes 40 % 42-75 Automated blood lymphocytes/100 leukocytes 31 % 12-44 Blood monocytes/100 leukocytes 17 % 0-12 Automated blood eosinophils/100 leukocytes 12 % 0-10 Automated blood basophils/100 leukocytes 1 % 0-10 Blood neutrophils automated count (number/volume) 3.0 10*3 1.8-7.8 Blood lymphocytes automated count (number/volume) 2.3 10*3 1.0-4.0 Blood monocytes automated count (number/volume) 1. 3 10*3 0.0-1.0 Automated eosinophil count 0.9 10*3/uL 0 .0-0.3 Automated blood basophil count (count/volume) 0.1 10*3/uL 0.0-0.1 Liver function panel (serum or plasma al k phos, alb, total and direct bili, total protein, ALT, AST) - 07/19/18 10:11 Serum or plasma total bilirubin measurement (mass/volu me) 0.7 mg/dL 0.1-1.0 Serum or plasma alkaline phosphatase jase surement (enzymatic activity/volume) 123 U/L 40-136 Serum or plasma aspartate aminotransfera se measurement (enzymatic activity/volume) 31 U/L 5-34 Serum or plasma alanine aminotransferase measurement (enzymatic activity/volume) 19 U/L 0-55 Serum or plasma protein measurement (mass/volume) 6.5 g/dL 6.4-8.2 Serum or plasma albumin measurement (mass/volume) 2.8 g/dL 3.2-4.5 Bilirubin direct 0.4 mg/dL 0.0-0.3 Serum or plasma indirect bilirubin measurement (mass/v olume) 0.3 mg/dL NRG Serum or plasma renal function panel (Na , K, Cl, CO2, BUN, Cr, glucose,Ca, phos, alb) - 07/19/18 10:11 Serum or plasma sodium measurement (moles/volume) 141 mmol/L 135-145 Serum or plasma potassium measurement (moles/volume) 4.7 mmol/L 3.6-5.0 Serum or plasma chloride measurement (moles/volume) 114 mmol/L 98-107 Carbon dioxide 21 mmol/L 21-32 Serum or plasma anion gap determination (moles/volume) 6 mmol/L 5-14 Serum or plasma urea nitrogen measurement (mass/volume ) 30 mg/dL 7-18 Serum or plasma creatinine measurement (mass/volume) 2.63 mg/dL 0.60-1.30 Serum or plasma urea nitrogen/creatinine mass ratio 11 NRG Serum or plasma creatinine measurement w ith calculation of estimated glomerular filtration rate 25 NRG Serum or plasma glucose measurement (mass/volume) 109 mg/dL 70-105 Serum or plasma calcium measurement (mass/volume) 8.4 mg/dL 8.5-10.1 Serum or plasma phosphate measurement (mass/volume) 3.0 mg/dL 2.3-4.7 Serum or plasma uric acid measurement (m ass/volume) - 07/19/18 10:11 Serum or plasma uric acid measurement (mass/volume) 7.8 mg/dL 2.6-7.2 Magnesium - 07/19/18 10:11 Magnesium 1.5 mg/dL 1.8-2.4 Serum or plasma creatine kinase measurem ent (enzymatic activity/volume) - 07/19/18 10:11 Serum or plasma creatine kinase measurem ent (enzymatic activity/volume) 58 U/L 30-200 Serum or plasma intact pararthyroid horm one measurement (mass/volume) - 07/19/18 10:11 Serum or plasma intact parathyroid hormone measurement (mass/volume) 203.6 pg/mL 9.0-77.0 Bio-intact parathyroid hormone (PTH) measurement with calcium 8.1 % 8.5-10.5 Complete urinalysis with reflex to cultu re - 07/19/18 10:15 Urine color determination YELLOW NRG Urine clarity determination CLEAR NR G Urine pH measurement by test strip 6 5-9 Specific gravity of urine by test strip 1.015 1.016-1.022 Urine protein assay by test strip, semi-quantitative 2+ NEGATIVE Urine glucose detection by automated test strip NE GATIVE NEGATIVE Erythrocytes detection in urine sediment by light micr oscopy 1+ NEGATIVE Urine ketones detection by automated test strip NE GATIVE NEGATIVE Urine nitrite detection by test strip NEGATIVE NEGATIVE Urine total bilirubin detection by test strip NEGA TIVE NEGATIVE Urine urobilinogen measurement by automated test strip (mass/volume) NORMAL NORMAL Urine leukocyte esterase detection by dipstick NEG ATIVE NEGATIVE Automated urine sediment erythrocyte cou nt by microscopy (number/high power field) RARE NRG Automated urine sediment leukocyte count by microscopy (number/high power field) NONE NRG Bacteria detection in urine sediment by light microsco py NEGATIVE NRG Squamous epithelial cells detection in u rine sediment by light microscopy RARE NRG Crystals detection in urine sediment by light microsco py NONE NRG Casts detection in urine sediment by light microscopy NONE NRG Mucus detection in urine sediment by light microscopy NEGATIVE NRG Complete urinalysis with reflex to culture NO NRG Urine protein/creatinine mass ratio - 10:15 Urine protein measurement (mass/volume) 39 mg/dL 6-12 Urine creatinine measurement (mass/volume) 88 mg/d L 30-125 Urine protein/creatinine mass ratio 0.44 NRG Complete blood count (CBC) with automate d white blood cell (WBC) differential - 09/11/18 12:12 Blood leukocytes automated count (number/volume) 9.1 10*3/uL 4.3-11.0 Blood erythrocytes automated count (number/volume) 3.55 10*6/uL 4.35-5.85 Venous blood hemoglobin measurement (mass/volume) 10.8 g/dL 13.3-17.7 Blood hematocrit (volume fraction) 33 % 40-54 Automated erythrocyte mean corpuscular volume 92 [ foz_us] 80-99 Automated erythrocyte mean corpuscular h emoglobin (mass per erythrocyte) 30 pg 25-34 Automated erythrocyte mean corpuscular h emoglobin concentration measurement (mass/volume) 33 g/dL 32-36 Automated erythrocyte distribution width ratio 16. 2 % 10.0- 14.5 Automated blood platelet count (count/volume) 108 10*3/uL 130-400 Automated blood platelet mean volume measurement 11.9 [foz_us] 7.4-10.4 Automated blood neutrophils/100 leukocytes 45 % 42-75 Automated blood lymphocytes/100 leukocytes 30 % 12-44 Blood monocytes/100 leukocytes 16 % 0-12 Automated blood eosinophils/100 leukocytes 9 % 0-10 Automated blood basophils/100 leukocytes 0 % 0-10 Blood neutrophils automated count (number/volume) 4.1 10*3 1.8-7.8 Blood lymphocytes automated count (number/volume) 2.7 10*3 1.0-4.0 Blood monocytes automated count (number/volume) 1. 5 10*3 0.0-1.0 Automated eosinophil count 0.8 10*3/uL 0 .0-0.3 Automated blood basophil count (count/volume) 0.0 10*3/uL 0.0-0.1 Comprehensive metabolic panel - 09/11/18 12:12 Serum or plasma sodium measurement (moles/volume) 140 mmol/L 135-145 Serum or plasma potassium measurement (moles/volume) 4.4 mmol/L 3.6-5.0 Serum or plasma chloride measurement (moles/volume) 116 mmol/L 98-107 Carbon dioxide 17 mmol/L 21-32 Serum or plasma anion gap determination (moles/volume) 7 mmol/L 5-14 Serum or plasma urea nitrogen measurement (mass/volume ) 39 mg/dL 7-18 Serum or plasma creatinine measurement (mass/volume) 3.02 mg/dL 0.60-1.30 Serum or plasma urea nitrogen/creatinine mass ratio 13 NRG Serum or plasma creatinine measurement w ith calculation of estimated glomerular filtration rate 21 NRG Serum or plasma glucose measurement (mass/volume) 103 mg/dL 70-105 Serum or plasma calcium measurement (mass/volume) 8.7 mg/dL 8.5-10.1 Serum or plasma total bilirubin measurement (mass/volu me) 0.5 mg/dL 0.1-1.0 Serum or plasma alkaline phosphatase jase surement (enzymatic activity/volume) 125 U/L 40-136 Serum or plasma aspartate aminotransfera se measurement (enzymatic activity/volume) 22 U/L 5-34 Serum or plasma alanine aminotransferase measurement (enzymatic activity/volume) 15 U/L 0-55 Serum or plasma protein measurement (mass/volume) 6.5 g/dL 6.4-8.2 Serum or plasma albumin measurement (mass/volume) 3.0 g/dL 3.2-4.5 CALCIUM CORRECTED 9.5 mg/dL 8.5-10.1 Magnesium - 09/11/18 12:12 Magnesium 1.4 mg/dL 1.8-2.4 Serum or plasma [id number] r marker measurement (mass/volume) - 09/11/18 12:12 Serum or plasma [id number] r marker measurement (mass/volume) < % 0.0-8.8 Complete blood count (CBC) with automate d white blood cell (WBC) differential - 10/09/18 08:53 Blood leukocytes automated count (number/volume) 7.8 10*3/uL 4.3-11.0 Blood erythrocytes automated count (number/volume) 3.32 10*6/uL 4.35-5.85 Venous blood hemoglobin measurement (mass/volume) 10.4 g/dL 13.3-17.7 Blood hematocrit (volume fraction) 31 % 40-54 Automated erythrocyte mean corpuscular volume 93 [ foz_us] 80-99 Automated erythrocyte mean corpuscular h emoglobin (mass per erythrocyte) 31 pg 25-34 Automated erythrocyte mean corpuscular h emoglobin concentration measurement (mass/volume) 34 g/dL 32-36 Automated erythrocyte distribution width ratio 16. 0 % 10.0- 14.5 Automated blood platelet count (count/volume) 111 10*3/uL 130-400 Automated blood platelet mean volume measurement 11.5 [foz_us] 7.4-10.4 Automated blood neutrophils/100 leukocytes 37 % 42-75 Automated blood lymphocytes/100 leukocytes 37 % 12-44 Blood monocytes/100 leukocytes 17 % 0-12 Automated blood eosinophils/100 leukocytes 9 % 0-10 Automated blood basophils/100 leukocytes 1 % 0-10 Blood neutrophils automated count (number/volume) 2.9 10*3 1.8-7.8 Blood lymphocytes automated count (number/volume) 2.9 10*3 1.0-4.0 Blood monocytes automated count (number/volume) 1. 3 10*3 0.0-1.0 Automated eosinophil count 0.7 10*3/uL 0 .0-0.3 Automated blood basophil count (count/volume) 0.0 10*3/uL 0.0-0.1 Liver function panel (serum or plasma al k phos, alb, total and direct bili, total protein, ALT, AST) - 10/09/18 08:53 Serum or plasma total bilirubin measurement (mass/volu me) 0.8 mg/dL 0.1-1.0 Serum or plasma alkaline phosphatase jase surement (enzymatic activity/volume) 121 U/L 40-136 Serum or plasma aspartate aminotransfera se measurement (enzymatic activity/volume) 28 U/L 5-34 Serum or plasma alanine aminotransferase measurement (enzymatic activity/volume) 19 U/L 0-55 Serum or plasma protein measurement (mass/volume) 6.8 g/dL 6.4-8.2 Serum or plasma albumin measurement (mass/volume) 3.1 g/dL 3.2-4.5 Bilirubin direct 0.4 mg/dL 0.0-0.3 Serum or plasma indirect bilirubin measurement (mass/v olume) 0.4 mg/dL NRG Serum or plasma renal function panel (Na , K, Cl, CO2, BUN, Cr, glucose,Ca, phos, alb) - 10/09/18 08:53 Serum or plasma sodium measurement (moles/volume) 141 mmol/L 135-145 Serum or plasma potassium measurement (moles/volume) 5.0 mmol/L 3.6-5.0 Serum or plasma chloride measurement (moles/volume) 114 mmol/L 98-107 Carbon dioxide 22 mmol/L 21-32 Serum or plasma anion gap determination (moles/volume) 5 mmol/L 5-14 Serum or plasma urea nitrogen measurement (mass/volume ) 37 mg/dL 7-18 Serum or plasma creatinine measurement (mass/volume) 4.24 mg/dL 0.60-1.30 Serum or plasma urea nitrogen/creatinine mass ratio 9 NRG Serum or plasma creatinine measurement w ith calculation of estimated glomerular filtration rate 14 NRG Serum or plasma glucose measurement (mass/volume) 89 mg/dL 70-105 Serum or plasma calcium measurement (mass/volume) 9.0 mg/dL 8.5-10.1 Serum or plasma phosphate measurement (mass/volume) 3.3 mg/dL 2.3-4.7 Serum or plasma uric acid measurement (m ass/volume) - 10/09/18 08:53 Serum or plasma uric acid measurement (mass/volume) 9.5 mg/dL 2.6-7.2 Magnesium - 10/09/18 08:53 Magnesium 1.6 mg/dL 1.8-2.4 Serum or plasma creatine kinase measurem ent (enzymatic activity/volume) - 10/09/18 08:53 Serum or plasma creatine kinase measurem ent (enzymatic activity/volume) 221 U/L 30-200 Serum iron and total iron binding capaci ty panel - 10/09/18 08:53 Serum or plasma iron measurement (mass/volume) 65 % 40-180 Total iron binding capacity and transferrin saturation measurement 29 % 15-50 Iron binding capacity [mass/volume] in serum or plasma 221 % 280-380 UIBC (unsaturated iron binding capacity) 156 % 55-450 Serum or plasma ferritin measurement (mass/volume) 168.5 % 32.0-356.0 Serum or plasma intact pararthyroid horm one measurement (mass/volume) - 10/09/18 08:53 Serum or plasma intact parathyroid hormone measurement (mass/volume) 113.3 pg/mL 9.0-77.0 Bio-intact parathyroid hormone (PTH) measurement with calcium 8.7 % 8.5-10.5 Serum or plasma renal function panel (Na , K, Cl, CO2, BUN, Cr, glucose,Ca, phos, alb) - 10/11/18 10:43 Serum or plasma sodium measurement (moles/volume) 143 mmol/L 135-145 Serum or plasma potassium measurement (moles/volume) 4.8 mmol/L 3.6-5.0 Serum or plasma chloride measurement (moles/volume) 116 mmol/L 98-107 Carbon dioxide 21 mmol/L 21-32 Serum or plasma anion gap determination (moles/volume) 6 mmol/L 5-14 Serum or plasma urea nitrogen measurement (mass/volume ) 44 mg/dL 7-18 Serum or plasma creatinine measurement (mass/volume) 4.29 mg/dL 0.60-1.30 Serum or plasma urea nitrogen/creatinine mass ratio 10 NRG Serum or plasma creatinine measurement w ith calculation of estimated glomerular filtration rate 14 NRG Serum or plasma glucose measurement (mass/volume) 79 mg/dL 70-105 Serum or plasma calcium measurement (mass/volume) 8.6 mg/dL 8.5-10.1 Serum or plasma albumin measurement (mass/volume) 3.0 g/dL 3.2-4.5 Serum or plasma phosphate measurement (mass/volume) 4.8 mg/dL 2.3-4.7 Complete blood count (CBC) with automate d white blood cell (WBC) differential - 10/24/18 12:15 Blood leukocytes automated count (number/volume) 8.9 10*3/uL 4.3-11.0 Blood erythrocytes automated count (number/volume) 2.72 10*6/uL 4.35-5.85 Venous blood hemoglobin measurement (mass/volume) 8.6 g/dL 13.3-17.7 Blood hematocrit (volume fraction) 26 % 40-54 Automated erythrocyte mean corpuscular volume 96 [ foz_us] 80-99 Automated erythrocyte mean corpuscular h emoglobin (mass per erythrocyte) 32 pg 25-34 Automated erythrocyte mean corpuscular h emoglobin concentration measurement (mass/volume) 33 g/dL 32-36 Automated erythrocyte distribution width ratio 15. 6 % 10.0- 14.5 Automated blood platelet count (count/volume) 94 1 0*3/uL 130-400 Automated blood platelet mean volume measurement 11.6 [foz_us] 7.4-10.4 Automated blood neutrophils/100 leukocytes 57 % 42-75 Automated blood lymphocytes/100 leukocytes 16 % 12-44 Blood monocytes/100 leukocytes 24 % 0-12 Automated blood eosinophils/100 leukocytes 3 % 0-10 Automated blood basophils/100 leukocytes 0 % 0-10 Blood neutrophils automated count (number/volume) 5.1 10*3 1.8-7.8 Blood lymphocytes automated count (number/volume) 1.4 10*3 1.0-4.0 Blood monocytes automated count (number/volume) 2. 2 10*3 0.0-1.0 Automated eosinophil count 0.3 10*3/uL 0 .0-0.3 Automated blood basophil count (count/volume) 0.0 10*3/uL 0.0-0.1 Ammonia - 10/24/18 12:15 Ammonia 36 umol/L 11-32 PT panel in platelet poor plasma by coag ulation assay - 10/24/18 12:15 Prothrombin time (PT) in platelet poor plasma by coagu lation assay 18.1 s 12.2-14.7 INR in platelet poor plasma or blood by coagulation as say 1.4 0.8-1.4 Activated partial thromboplastin time (a PTT) in platelet poor plasma bycoagulation assay - 10/24/18 12:15 Activated partial thromboplastin time (a PTT) in platelet poor plasma bycoagulation assay 41 s 24-35 Comprehensive metabolic panel - 10/24/18 12:15 Serum or plasma sodium measurement (moles/volume) 140 mmol/L 135-145 Serum or plasma potassium measurement (moles/volume) 4.8 mmol/L 3.6-5.0 Serum or plasma chloride measurement (moles/volume) 112 mmol/L 98-107 Carbon dioxide 20 mmol/L 21-32 Serum or plasma anion gap determination (moles/volume) 8 mmol/L 5-14 Serum or plasma urea nitrogen measurement (mass/volume ) 38 mg/dL 7-18 Serum or plasma creatinine measurement (mass/volume) 3.05 mg/dL 0.60-1.30 Serum or plasma urea nitrogen/creatinine mass ratio 12 NRG Serum or plasma creatinine measurement w ith calculation of estimated glomerular filtration rate 21 NRG Serum or plasma glucose measurement (mass/volume) 94 mg/dL 70-105 Serum or plasma calcium measurement (mass/volume) 8.4 mg/dL 8.5-10.1 Serum or plasma total bilirubin measurement (mass/volu me) 1.4 mg/dL 0.1-1.0 Serum or plasma alkaline phosphatase jase surement (enzymatic activity/volume) 101 U/L 40-136 Serum or plasma aspartate aminotransfera se measurement (enzymatic activity/volume) 13 U/L 5-34 Serum or plasma alanine aminotransferase measurement (enzymatic activity/volume) 8 U/L 0-55 Serum or plasma protein measurement (mass/volume) 6.0 g/dL 6.4-8.2 Serum or plasma albumin measurement (mass/volume) 3.1 g/dL 3.2-4.5 CALCIUM CORRECTED 9.1 mg/dL 8.5-10.1 Magnesium - 10/24/18 12:15 Magnesium 1.3 mg/dL 1.8-2.4 Serum or plasma troponin i.cardiac measu rement (mass/volume) - 10/24/18 12:15 Serum or plasma troponin i.cardiac measurement (mass/v olume) < ng/mL <0.028 Myoglobin, serum - 10/24/18 12:15 Myoglobin, serum 71.6 ng/mL 10.0-92.0 Blood manual differential performed dete ction - 10/24/18 12:15 Blood monocytes/100 leukocytes 16 % NRG Manual blood segmented neutrophils/100 leukocytes 62 % NRG Manual blood lymphocytes/100 leukocytes 17 % NRG Manual eosinophils/100 leukocytes in nose 5 % NRG Blood erythrocyte morphology finding identification NORMAL NRG Serum or plasma lithium measurement (mol es/volume) - 10/24/18 12:15 BNP level 2839.7 pg/mL <100.0 Bacterial blood culture - 10/24/18 12:15 Bacterial blood culture NG NRG Blood lactic acid measurement (moles/vol ume) - 10/24/18 13:30 Blood lactic acid measurement (moles/volume) 1.17 mmol/L 0.50-2.00 Bacterial blood culture - 10/24/18 13:30 Bacterial blood culture NG NRG Complete blood count (CBC) with automate d white blood cell (WBC) differential - 11/29/18 08:02 Blood leukocytes automated count (number/volume) 10.0 10*3/uL 4.3-11.0 Blood erythrocytes automated count (number/volume) 3.11 10*6/uL 4.35-5.85 Venous blood hemoglobin measurement (mass/volume) 9.8 g/dL 13.3-17.7 Blood hematocrit (volume fraction) 30 % 40-54 Automated erythrocyte mean corpuscular volume 97 [ foz_us] 80-99 Automated erythrocyte mean corpuscular h emoglobin (mass per erythrocyte) 32 pg 25-34 Automated erythrocyte mean corpuscular h emoglobin concentration measurement (mass/volume) 32 g/dL 32-36 Automated erythrocyte distribution width ratio 15. 5 % 10.0- 14.5 Automated blood platelet count (count/volume) 73 1 0*3/uL 130-400 Automated blood platelet mean volume measurement 11.2 [foz_us] 7.4-10.4 Automated blood neutrophils/100 leukocytes 39 % 42-75 Automated blood lymphocytes/100 leukocytes 33 % 12-44 Blood monocytes/100 leukocytes 19 % 0-12 Automated blood eosinophils/100 leukocytes 8 % 0-10 Automated blood basophils/100 leukocytes 1 % 0-10 Blood neutrophils automated count (number/volume) 3.9 10*3 1.8-7.8 Blood lymphocytes automated count (number/volume) 3.3 10*3 1.0-4.0 Blood monocytes automated count (number/volume) 1. 9 10*3 0.0-1.0 Automated eosinophil count 0.8 10*3/uL 0 .0-0.3 Automated blood basophil count (count/volume) 0.1 10*3/uL 0.0-0.1 Liver function panel (serum or plasma al k phos, alb, total and direct bili, total protein, ALT, AST) - 11/29/18 08:02 Serum or plasma total bilirubin measurement (mass/volu me) 0.7 mg/dL 0.1-1.0 Serum or plasma alkaline phosphatase jase surement (enzymatic activity/volume) 133 U/L 40-136 Serum or plasma aspartate aminotransfera se measurement (enzymatic activity/volume) 21 U/L 5-34 Serum or plasma alanine aminotransferase measurement (enzymatic activity/volume) 15 U/L 0-55 Serum or plasma protein measurement (mass/volume) 6.8 g/dL 6.4-8.2 Serum or plasma albumin measurement (mass/volume) 3.3 g/dL 3.2-4.5 Bilirubin direct 0.4 mg/dL 0.0-0.3 Serum or plasma indirect bilirubin measurement (mass/v olume) 0.3 mg/dL NRG Serum or plasma renal function panel (Na , K, Cl, CO2, BUN, Cr, glucose,Ca, phos, alb) - 11/29/18 08:02 Serum or plasma sodium measurement (moles/volume) 139 mmol/L 135-145 Serum or plasma potassium measurement (moles/volume) 4.5 mmol/L 3.6-5.0 Serum or plasma chloride measurement (moles/volume) 114 mmol/L 98-107 Carbon dioxide 18 mmol/L 21-32 Serum or plasma anion gap determination (moles/volume) 7 mmol/L 5-14 Serum or plasma urea nitrogen measurement (mass/volume ) 36 mg/dL 7-18 Serum or plasma creatinine measurement (mass/volume) 4.86 mg/dL 0.60-1.30 Serum or plasma urea nitrogen/creatinine mass ratio 7 NRG Serum or plasma creatinine measurement w ith calculation of estimated glomerular filtration rate 12 NRG Serum or plasma glucose measurement (mass/volume) 103 mg/dL 70-105 Serum or plasma calcium measurement (mass/volume) 8.5 mg/dL 8.5-10.1 Serum or plasma phosphate measurement (mass/volume) 3.9 mg/dL 2.3-4.7 Serum or plasma uric acid measurement (m ass/volume) - 11/29/18 08:02 Serum or plasma uric acid measurement (mass/volume) 8.9 mg/dL 2.6-7.2 Magnesium - 11/29/18 08:02 Magnesium 2.2 mg/dL 1.8-2.4 Serum or plasma creatine kinase measurem ent (enzymatic activity/volume) - 11/29/18 08:02 Serum or plasma creatine kinase measurem ent (enzymatic activity/volume) 47 U/L 30-200 Blood manual differential performed dete ction - 11/29/18 08:02 Blood monocytes/100 leukocytes 10 % NRG Manual blood segmented neutrophils/100 leukocytes 52 % NRG Manual blood lymphocytes/100 leukocytes 36 % NRG Manual eosinophils/100 leukocytes in nose 2 % NRG Blood erythrocyte morphology finding identification NORMAL NRG Urine protein/creatinine mass ratio - 11:50 Urine protein measurement (mass/volume) 41 mg/dL 6-12 Urine creatinine measurement (mass/volume) 61 mg/d L 30-125 Urine protein/creatinine mass ratio 0.67 NRG Complete urinalysis with reflex to cultu re - 11/29/18 11:50 Urine color determination YELLOW NRG Urine clarity determination CLEAR NR G Urine pH measurement by test strip 6 5-9 Specific gravity of urine by test strip 1.010 1.016-1.022 Urine protein assay by test strip, semi-quantitative 2+ NEGATIVE Urine glucose detection by automated test strip NE GATIVE NEGATIVE Erythrocytes detection in urine sediment by light micr oscopy NEGATIVE NEGATIVE Urine ketones detection by automated test strip NE GATIVE NEGATIVE Urine nitrite detection by test strip NEGATIVE NEGATIVE Urine total bilirubin detection by test strip NEGA TIVE NEGATIVE Urine urobilinogen measurement by automated test strip (mass/volume) NORMAL NORMAL Urine leukocyte esterase detection by dipstick NEG ATIVE NEGATIVE Automated urine sediment erythrocyte cou nt by microscopy (number/high power field) NONE NRG Automated urine sediment leukocyte count by microscopy (number/high power field) RARE NRG Bacteria detection in urine sediment by light microsco py NEGATIVE NRG Squamous epithelial cells detection in u rine sediment by light microscopy 2-5 NRG Crystals detection in urine sediment by light microsco py NONE NRG Casts detection in urine sediment by light microscopy NONE NRG Mucus detection in urine sediment by light microscopy NEGATIVE NRG Complete urinalysis with reflex to culture NO NRG Serum or plasma renal function panel (Na , K, Cl, CO2, BUN, Cr, glucose,Ca, phos, alb) - 12/09/18 10:22 Serum or plasma sodium measurement (moles/volume) 137 mmol/L 135-145 Serum or plasma potassium measurement (moles/volume) 5.3 mmol/L 3.6-5.0 Serum or plasma chloride measurement (moles/volume) 112 mmol/L 98-107 Carbon dioxide 20 mmol/L 21-32 Serum or plasma anion gap determination (moles/volume) 5 mmol/L 5-14 Serum or plasma urea nitrogen measurement (mass/volume ) 30 mg/dL 7-18 Serum or plasma creatinine measurement (mass/volume) 3.66 mg/dL 0.60-1.30 Serum or plasma urea nitrogen/creatinine mass ratio 8 NRG Serum or plasma creatinine measurement w ith calculation of estimated glomerular filtration rate 17 NRG Serum or plasma glucose measurement (mass/volume) 93 mg/dL 70-105 Serum or plasma calcium measurement (mass/volume) 8.5 mg/dL 8.5-10.1 Serum or plasma albumin measurement (mass/volume) 3.2 g/dL 3.2-4.5 Serum or plasma phosphate measurement (mass/volume) 3.0 mg/dL 2.3-4.7 Ammonia - 12/09/18 10:22 Ammonia 116 umol/L 11-32 Complete blood count (CBC) with automate d white blood cell (WBC) differential - 01/17/19 09:45 Blood leukocytes automated count (number/volume) 8.2 10*3/uL 4.3-11.0 Blood erythrocytes automated count (number/volume) 3.47 10*6/uL 4.35-5.85 Venous blood hemoglobin measurement (mass/volume) 10.9 g/dL 13.3-17.7 Blood hematocrit (volume fraction) 33 % 40-54 Automated erythrocyte mean corpuscular volume 94 [ foz_us] 80-99 Automated erythrocyte mean corpuscular h emoglobin (mass per erythrocyte) 31 pg 25-34 Automated erythrocyte mean corpuscular h emoglobin concentration measurement (mass/volume) 34 g/dL 32-36 Automated erythrocyte distribution width ratio 14. 9 % 10.0- 14.5 Automated blood platelet count (count/volume) 89 1 0*3/uL 130-400 Automated blood platelet mean volume measurement 11.4 [foz_us] 7.4-10.4 Automated blood neutrophils/100 leukocytes 43 % 42-75 Automated blood lymphocytes/100 leukocytes 31 % 12-44 Blood monocytes/100 leukocytes 15 % 0-12 Automated blood eosinophils/100 leukocytes 11 % 0-10 Automated blood basophils/100 leukocytes 1 % 0-10 Blood neutrophils automated count (number/volume) 3.5 10*3 1.8-7.8 Blood lymphocytes automated count (number/volume) 2.5 10*3 1.0-4.0 Blood monocytes automated count (number/volume) 1. 2 10*3 0.0-1.0 Automated eosinophil count 0.9 10*3/uL 0 .0-0.3 Automated blood basophil count (count/volume) 0.1 10*3/uL 0.0-0.1 Serum or plasma renal function panel (Na , K, Cl, CO2, BUN, Cr, glucose,Ca, phos, alb) - 01/17/19 09:45 Serum or plasma sodium measurement (moles/volume) 138 mmol/L 135-145 Serum or plasma potassium measurement (moles/volume) 5.1 mmol/L 3.6-5.0 Serum or plasma chloride measurement (moles/volume) 112 mmol/L 98-107 Carbon dioxide 15 mmol/L 21-32 Serum or plasma anion gap determination (moles/volume) 11 mmol/L 5-14 Serum or plasma urea nitrogen measurement (mass/volume ) 43 mg/dL 7-18 Serum or plasma creatinine measurement (mass/volume) 5.63 mg/dL 0.60-1.30 Serum or plasma urea nitrogen/creatinine mass ratio 8 NRG Serum or plasma creatinine measurement w ith calculation of estimated glomerular filtration rate 10 NRG Serum or plasma glucose measurement (mass/volume) 90 mg/dL 70-105 Serum or plasma calcium measurement (mass/volume) 8.7 mg/dL 8.5-10.1 Serum or plasma albumin measurement (mass/volume) 3.4 g/dL 3.2-4.5 Serum or plasma phosphate measurement (mass/volume) 4.0 mg/dL 2.3-4.7 ANTI-NUCLEAR AB (MAXIMINO) ANALYZER - 9 09:45 Screening antinuclear antibody (MAXIMINO) assay by enzyme i mmunoassay <1:80 <1:80 Complete blood count (CBC) with automate d white blood cell (WBC) differential - 02/28/19 09:24 Blood leukocytes automated count (number/volume) 9.2 10*3/uL 4.3-11.0 Blood erythrocytes automated count (number/volume) 3.21 10*6/uL 4.35-5.85 Venous blood hemoglobin measurement (mass/volume) 9.9 g/dL 13.3-17.7 Blood hematocrit (volume fraction) 30 % 40-54 Automated erythrocyte mean corpuscular volume 93 [ foz_us] 80-99 Automated erythrocyte mean corpuscular h emoglobin (mass per erythrocyte) 31 pg 25-34 Automated erythrocyte mean corpuscular h emoglobin concentration measurement (mass/volume) 33 g/dL 32-36 Automated erythrocyte distribution width ratio 14. 5 % 10.0- 14.5 Automated blood platelet count (count/volume) 88 1 0*3/uL 130-400 Automated blood platelet mean volume measurement 11.2 [foz_us] 7.4-10.4 Automated blood neutrophils/100 leukocytes 50 % 42-75 Automated blood lymphocytes/100 leukocytes 17 % 12-44 Blood monocytes/100 leukocytes 15 % 0-12 Automated blood eosinophils/100 leukocytes 18 % 0-10 Automated blood basophils/100 leukocytes 0 % 0-10 Blood neutrophils automated count (number/volume) 4.6 10*3 1.8-7.8 Blood lymphocytes automated count (number/volume) 1.6 10*3 1.0-4.0 Blood monocytes automated count (number/volume) 1. 4 10*3 0.0-1.0 Automated eosinophil count 1.6 10*3/uL 0 .0-0.3 Automated blood basophil count (count/volume) 0.0 10*3/uL 0.0-0.1 Serum or plasma renal function panel (Na , K, Cl, CO2, BUN, Cr, glucose,Ca, phos, alb) - 02/28/19 09:24 Serum or plasma sodium measurement (moles/volume) 139 mmol/L 135-145 Serum or plasma potassium measurement (moles/volume) 5.0 mmol/L 3.6-5.0 Serum or plasma chloride measurement (moles/volume) 112 mmol/L 98-107 Carbon dioxide 19 mmol/L 21-32 Serum or plasma anion gap determination (moles/volume) 8 mmol/L 5-14 Serum or plasma urea nitrogen measurement (mass/volume ) 35 mg/dL 7-18 Serum or plasma creatinine measurement (mass/volume) 3.79 mg/dL 0.60-1.30 Serum or plasma urea nitrogen/creatinine mass ratio 9 NRG Serum or plasma creatinine measurement w ith calculation of estimated glomerular filtration rate 16 NRG Serum or plasma glucose measurement (mass/volume) 91 mg/dL 70-105 Serum or plasma calcium measurement (mass/volume) 8.2 mg/dL 8.5-10.1 Serum or plasma albumin measurement (mass/volume) 3.1 g/dL 3.2-4.5 Serum or plasma phosphate measurement (mass/volume) 3.5 mg/dL 2.3-4.7 Manual absolute plasma cell count - 02/07 09/24 09:24 Blood monocytes/100 leukocytes 12 % NRG Manual blood segmented neutrophils/100 leukocytes 51 % NRG Blood band neutrophils/100 leukocytes 0 % NRG Manual blood lymphocytes/100 leukocytes 16 % NRG Manual eosinophils/100 leukocytes in nose 21 % NRG Manual blood basophils/100 leukocytes 0 % NRG Blood erythrocyte morphology finding identification NORMAL NRG Complete blood count (CBC) with automate d white blood cell (WBC) differential - 04/03/19 14:56 Blood leukocytes automated count (number/volume) 7.2 10*3/uL 4.3-11.0 Blood erythrocytes automated count (number/volume) 3.05 10*6/uL 4.35-5.85 Venous blood hemoglobin measurement (mass/volume) 9.4 g/dL 13.3-17.7 Blood hematocrit (volume fraction) 28 % 40-54 Automated erythrocyte mean corpuscular volume 92 [ foz_us] 80-99 Automated erythrocyte mean corpuscular h emoglobin (mass per erythrocyte) 31 pg 25-34 Automated erythrocyte mean corpuscular h emoglobin concentration measurement (mass/volume) 34 g/dL 32-36 Automated erythrocyte distribution width ratio 14. 9 % 10.0- 14.5 Automated blood platelet count (count/volume) 93 1 0*3/uL 130-400 Automated blood platelet mean volume measurement 11.0 [foz_us] 7.4-10.4 Automated blood neutrophils/100 leukocytes 50 % 42-75 Automated blood lymphocytes/100 leukocytes 24 % 12-44 Blood monocytes/100 leukocytes 15 % 0-12 Automated blood eosinophils/100 leukocytes 10 % 0-10 Automated blood basophils/100 leukocytes 1 % 0-10 Blood neutrophils automated count (number/volume) 3.6 10*3 1.8-7.8 Blood lymphocytes automated count (number/volume) 1.7 10*3 1.0-4.0 Blood monocytes automated count (number/volume) 1. 1 10*3 0.0-1.0 Automated eosinophil count 0.7 10*3/uL 0 .0-0.3 Automated blood basophil count (count/volume) 0.1 10*3/uL 0.0-0.1 Liver function panel (serum or plasma al k phos, alb, total and direct bili, total protein, ALT, AST) - 04/03/19 14:56 Serum or plasma total bilirubin measurement (mass/volu me) 0.7 mg/dL 0.1-1.0 Serum or plasma alkaline phosphatase jase surement (enzymatic activity/volume) 134 U/L 40-136 Serum or plasma aspartate aminotransfera se measurement (enzymatic activity/volume) 20 U/L 5-34 Serum or plasma alanine aminotransferase measurement (enzymatic activity/volume) 12 U/L 0-55 Serum or plasma protein measurement (mass/volume) 6.4 g/dL 6.4-8.2 Serum or plasma albumin measurement (mass/volume) 3.1 g/dL 3.2-4.5 Bilirubin direct 0.4 mg/dL 0.0-0.3 Serum or plasma indirect bilirubin measurement (mass/v olume) 0.3 mg/dL NRG Serum or plasma uric acid measurement (m ass/volume) - 04/03/19 14:56 Serum or plasma uric acid measurement (mass/volume) 8.1 mg/dL 2.6-7.2 Magnesium - 04/03/19 14:56 Magnesium 1.7 mg/dL 1.6-2.4 Serum or plasma creatine kinase measurem ent (enzymatic activity/volume) - 04/03/19 14:56 Serum or plasma creatine kinase measurem ent (enzymatic activity/volume) 111 U/L 30-200 Serum or plasma intact pararthyroid horm one measurement (mass/volume) - 04/03/19 14:56 Serum or plasma intact parathyroid hormone measurement (mass/volume) 188.3 pg/mL 9.0-77.0 Bio-intact parathyroid hormone (PTH) measurement with calcium 8.1 % 8.5-10.5 Serum or plasma renal function panel (Na , K, Cl, CO2, BUN, Cr, glucose,Ca, phos, alb) - 04/03/19 14:56 Serum or plasma sodium measurement (moles/volume) 139 mmol/L 135-145 Serum or plasma potassium measurement (moles/volume) 5.1 mmol/L 3.6-5.0 Serum or plasma chloride measurement (moles/volume) 114 mmol/L 98-107 Carbon dioxide 17 mmol/L 21-32 Serum or plasma anion gap determination (moles/volume) 8 mmol/L 5-14 Serum or plasma urea nitrogen measurement (mass/volume ) 37 mg/dL 7-18 Serum or plasma creatinine measurement (mass/volume) 4.23 mg/dL 0.60-1.30 Serum or plasma urea nitrogen/creatinine mass ratio 9 NRG Serum or plasma creatinine measurement w ith calculation of estimated glomerular filtration rate 14 NRG Serum or plasma glucose measurement (mass/volume) 100 mg/dL 70-105 Serum or plasma calcium measurement (mass/volume) 7.9 mg/dL 8.5-10.1 Serum or plasma albumin measurement (mass/volume) 3.1 g/dL 3.2-4.5 Serum or plasma phosphate measurement (mass/volume) 3.7 mg/dL 2.3-4.7 Urine protein/creatinine mass ratio - 11:35 Urine protein measurement (mass/volume) 30 mg/dL 6-12 Urine creatinine measurement (mass/volume) 96 mg/d L 30-125 Urine protein/creatinine mass ratio 0.31 NRG Complete urinalysis with reflex to cultu re - 04/16/19 11:35 Urine color determination YELLOW NRG Urine clarity determination CLEAR NR G Urine pH measurement by test strip 5 5-9 Specific gravity of urine by test strip 1.010 1.016-1.022 Urine protein assay by test strip, semi-quantitative 2+ NEGATIVE Urine glucose detection by automated test strip NE GATIVE NEGATIVE Erythrocytes detection in urine sediment by light micr oscopy NEGATIVE NEGATIVE Urine ketones detection by automated test strip NE GATIVE NEGATIVE Urine nitrite detection by test strip NEGATIVE NEGATIVE Urine total bilirubin detection by test strip NEGA TIVE NEGATIVE Urine urobilinogen measurement by automated test strip (mass/volume) NORMAL NORMAL Urine leukocyte esterase detection by dipstick NEG ATIVE NEGATIVE Automated urine sediment erythrocyte cou nt by microscopy (number/high power field) RARE NRG Automated urine sediment leukocyte count by microscopy (number/high power field) NONE NRG Bacteria detection in urine sediment by light microsco py NEGATIVE NRG Squamous epithelial cells detection in u rine sediment by light microscopy 2-5 NRG Crystals detection in urine sediment by light microsco py NONE NRG Casts detection in urine sediment by light microscopy PRESENT NRG Mucus detection in urine sediment by light microscopy NEGATIVE NRG Complete urinalysis with reflex to culture NO NRG Hyaline casts detection in urine sediment by light bin roscopy RARE NRG Complete blood count (CBC) with automate d white blood cell (WBC) differential - 04/16/19 11:40 Blood leukocytes automated count (number/volume) 7.3 10*3/uL 4.3-11.0 Blood erythrocytes automated count (number/volume) 3.25 10*6/uL 4.35-5.85 Venous blood hemoglobin measurement (mass/volume) 9.9 g/dL 13.3-17.7 Blood hematocrit (volume fraction) 30 % 40-54 Automated erythrocyte mean corpuscular volume 93 [ foz_us] 80-99 Automated erythrocyte mean corpuscular h emoglobin (mass per erythrocyte) 31 pg 25-34 Automated erythrocyte mean corpuscular h emoglobin concentration measurement (mass/volume) 33 g/dL 32-36 Automated erythrocyte distribution width ratio 15. 1 % 10.0- 14.5 Automated blood platelet count (count/volume) 98 1 0*3/uL 130-400 Automated blood platelet mean volume measurement 11.8 [foz_us] 7.4-10.4 Automated blood neutrophils/100 leukocytes 50 % 42-75 Automated blood lymphocytes/100 leukocytes 26 % 12-44 Blood monocytes/100 leukocytes 13 % 0-12 Automated blood eosinophils/100 leukocytes 11 % 0-10 Automated blood basophils/100 leukocytes 1 % 0-10 Blood neutrophils automated count (number/volume) 3.6 10*3 1.8-7.8 Blood lymphocytes automated count (number/volume) 1.9 10*3 1.0-4.0 Blood monocytes automated count (number/volume) 0. 9 10*3 0.0-1.0 Automated eosinophil count 0.8 10*3/uL 0 .0-0.3 Automated blood basophil count (count/volume) 0.1 10*3/uL 0.0-0.1 Liver function panel (serum or plasma al k phos, alb, total and direct bili, total protein, ALT, AST) - 04/16/19 11:40 Serum or plasma total bilirubin measurement (mass/volu me) 0.7 mg/dL 0.1-1.0 Serum or plasma alkaline phosphatase jase surement (enzymatic activity/volume) 123 U/L 40-136 Serum or plasma aspartate aminotransfera se measurement (enzymatic activity/volume) 21 U/L 5-34 Serum or plasma alanine aminotransferase measurement (enzymatic activity/volume) 13 U/L 0-55 Serum or plasma protein measurement (mass/volume) 6.4 g/dL 6.4-8.2 Serum or plasma albumin measurement (mass/volume) 2.9 g/dL 3.2-4.5 Bilirubin direct 0.4 mg/dL 0.0-0.3 Serum or plasma indirect bilirubin measurement (mass/v olume) 0.3 mg/dL NRG Serum or plasma renal function panel (Na , K, Cl, CO2, BUN, Cr, glucose,Ca, phos, alb) - 04/16/19 11:40 Serum or plasma sodium measurement (moles/volume) 142 mmol/L 135-145 Serum or plasma potassium measurement (moles/volume) 4.9 mmol/L 3.6-5.0 Serum or plasma chloride measurement (moles/volume) 117 mmol/L 98-107 Carbon dioxide 19 mmol/L 21-32 Serum or plasma anion gap determination (moles/volume) 6 mmol/L 5-14 Serum or plasma urea nitrogen measurement (mass/volume ) 35 mg/dL 7-18 Serum or plasma creatinine measurement (mass/volume) 4.34 mg/dL 0.60-1.30 Serum or plasma urea nitrogen/creatinine mass ratio 8 NRG Serum or plasma creatinine measurement w ith calculation of estimated glomerular filtration rate 14 NRG Serum or plasma glucose measurement (mass/volume) 102 mg/dL 70-105 Serum or plasma calcium measurement (mass/volume) 8.2 mg/dL 8.5-10.1 Serum or plasma phosphate measurement (mass/volume) 2.3 mg/dL 2.3-4.7 Serum or plasma uric acid measurement (m ass/volume) - 04/16/19 11:40 Serum or plasma uric acid measurement (mass/volume) 8.6 mg/dL 2.6-7.2 Magnesium - 04/16/19 11:40 Magnesium 1.6 mg/dL 1.6-2.4 Serum or plasma creatine kinase measurem ent (enzymatic activity/volume) - 04/16/19 11:40 Serum or plasma creatine kinase measurem ent (enzymatic activity/volume) 35 U/L 30-200 Serum or plasma intact pararthyroid horm one measurement (mass/volume) - 04/16/19 11:40 Serum or plasma intact parathyroid hormone measurement (mass/volume) 173.0 pg/mL 9.0-77.0 Bio-intact parathyroid hormone (PTH) measurement with calcium 8.2 % 8.5-10.5 Influenza virus A and B antigen detectio n - 08/30/19 04:35 FLU RESULT NEGATIVE FOR INFLUENZA A AND B ANTIGENS BY [facility] Complete blood count (CBC) with automate d white blood cell (WBC) differential - 08/30/19 04:50 Blood leukocytes automated count (number/volume) 11.4 10*3/uL 4.3-11.0 Blood erythrocytes automated count (number/volume) 3.99 10*6/uL 4.35-5.85 Venous blood hemoglobin measurement (mass/volume) 12.3 g/dL 13.3-17.7 Blood hematocrit (volume fraction) 38 % 40-54 Automated erythrocyte mean corpuscular volume 95 [ foz_us] 80-99 Automated erythrocyte mean corpuscular h emoglobin (mass per erythrocyte) 31 pg 25-34 Automated erythrocyte mean corpuscular h emoglobin concentration measurement (mass/volume) 33 g/dL 32-36 Automated erythrocyte distribution width ratio 16. 1 % 10.0- 14.5 Automated blood platelet count (count/volume) 90 1 0*3/uL 130-400 Automated blood platelet mean volume measurement 10.7 [foz_us] 7.4-10.4 Automated blood neutrophils/100 leukocytes 60 % 42-75 Automated blood lymphocytes/100 leukocytes 18 % 12-44 Blood monocytes/100 leukocytes 16 % 0-12 Automated blood eosinophils/100 leukocytes 6 % 0-10 Automated blood basophils/100 leukocytes 1 % 0-10 Blood neutrophils automated count (number/volume) 6.9 10*3 1.8-7.8 Blood lymphocytes automated count (number/volume) 2.0 10*3 1.0-4.0 Blood monocytes automated count (number/volume) 1. 8 10*3 0.0-1.0 Automated eosinophil count 0.7 10*3/uL 0 .0-0.3 Automated blood basophil count (count/volume) 0.1 10*3/uL 0.0-0.1 Arterial blood gas measurement - 0 04:50 Blood pCO2 46 mm[Hg] 35-45 Blood pO2 89 mm[Hg] 79-93 Arterial blood bicarbonate measurement (moles/volume) 29 mmol/L 23-27 Arterial blood base excess by calculation 4.3 mmol /L -2.5-2.5 Arterial blood oxygen saturation measurement 97 % 94-100 * Inhaled oxygen flow rate 45% NRG Arterial blood pH measurement with patient temperature correction 7.41 7.37-7.43 Arterial blood carbon dioxide, total measurement (mole s/volume) 30.4 mmol/L 21.0-31.0 Body site RIGHT RADIAL NRG Assessment of wrist artery patency prior to arterial p uncture YES-POS NRG Setting of ventilation mode NO NR G Measurement of body temperature 36.0 NRG Comprehensive metabolic panel - 08/30/19 04:50 Serum or plasma sodium measurement (moles/volume) 141 mmol/L 135-145 Serum or plasma potassium measurement (moles/volume) 4.4 mmol/L 3.6-5.0 Serum or plasma chloride measurement (moles/volume) 104 mmol/L 98-107 Carbon dioxide 26 mmol/L 21-32 Serum or plasma anion gap determination (moles/volume) 11 mmol/L 5-14 Serum or plasma urea nitrogen measurement (mass/volume ) 18 mg/dL 7-18 Serum or plasma creatinine measurement (mass/volume) 4.94 mg/dL 0.60-1.30 Serum or plasma urea nitrogen/creatinine mass ratio 4 NRG Serum or plasma creatinine measurement w ith calculation of estimated glomerular filtration rate 12 NRG Serum or plasma glucose measurement (mass/volume) 102 mg/dL 70-105 Serum or plasma calcium measurement (mass/volume) 8.4 mg/dL 8.5-10.1 Serum or plasma total bilirubin measurement (mass/volu me) 1.2 mg/dL 0.1-1.0 Serum or plasma alkaline phosphatase jase surement (enzymatic activity/volume) 209 U/L 40-136 Serum or plasma aspartate aminotransfera se measurement (enzymatic activity/volume) 27 U/L 5-34 Serum or plasma alanine aminotransferase measurement (enzymatic activity/volume) 15 U/L 0-55 Serum or plasma protein measurement (mass/volume) 6.3 g/dL 6.4-8.2 Serum or plasma albumin measurement (mass/volume) 3.0 g/dL 3.2-4.5 CALCIUM CORRECTED 9.2 mg/dL 8.5-10.1 Magnesium - 08/30/19 04:50 Magnesium 1.9 mg/dL 1.6-2.4 Serum or plasma troponin i.cardiac measu rement (mass/volume) - 08/30/19 04:50 Serum or plasma troponin i.cardiac measurement (mass/v olume) < ng/mL <0.028 Serum or plasma C reactive protein measu rement (mass/volume) - 08/30/19 04:50 Serum or plasma C reactive protein measurement (mass/v olume) 1.96 mg/dL 0.00-0.50 Ammonia - 08/30/19 05:53 Ammonia 43 umol/L 11-32 Encounters ACCT No. Visit Date/Time Discharge Status Pt. Type Provider Facility Loc./Unit Complaint [id number] 08/12/2019 13:20:00 08/12/2019 23:59:5 9 CLS Outpatient TEREZA JAVIER MD [facility] [id number] 01/10/2018 13:00:00 Document Registration [id number] 10/08/2017 13:00:00 Document Registration [id number] 07/24/2017 16:00:00 Document Registration [id number] 08/30/2019 04:30:00 10:06:00 DIS Emergency FRANCISCO MARES MD [facility] ER SOA [id number] 05/22/2019 00:11:00 23:59:59 CLS Preadmit ILSA LOUISE MD [facility] ONC [id number] 02/20/2019 13:33:00 00:01:00 DIS Outpatient ILSA LOUISE MD [facility] ONC [id number] 04/16/2019 11:11:00 23:59:59 CLS Outpatient PRISCILA CHANDLER MD [facility] LAB CHRONIC KIDNEY INJURY [id number] 04/03/2019 14:36:00 23:59:59 CLS Outpatient PRISCILA CHANDLER MD [facility] LAB ACUTE CHRONIC K IDNEY INJURY [id number] 02/28/2019 09:11:00 23:59:59 CLS Outpatient PRISCILA CHANDLER MD [facility] LAB N17.9 [id number] 01/17/2019 09:14:00 23:59:59 CLS Outpatient PRISCILA CHANDLER MD [facility] LAB ACUTE KIDNEY FA ILURE [id number] 12/09/2018 10:08:00 23:59:59 CLS Outpatient PRISCILA CHANDLER MD [facility] LAB Z94.4 [id number] 11/29/2018 07:49:00 23:59:59 CLS Outpatient PRISCILA CHANDLER MD [facility] LAB N18.4 [id number] 10/24/2018 12:06:00 15:24:00 DIS Emergency MAXIME AMAYA APRN [facility] ER SOA [id number] 10/11/2018 10:34:00 23:59:59 CLS Outpatient PRISCILA CHANDLER MD [facility] LAB N18.4 [id number] 2018 08:36:00 23:59:59 CLS Outpatient PRISCILA CHANDLER MD [facility] LAB D64.9,R60.9 [id number] 09/27/2018 16:28:00 16:51:00 DIS Emergency MAXIME AMAYA [employer] [facility] ER CONFUSION [id number] 09/12/2018 08:02:00 23:59:59 CLS Outpatient TEREZA BRADEN MD [facility] RAD CIRRHOSIS [id number] 09/11/2018 12:00:00 23:59:59 CLS Outpatient TEREZA BRADEN MD [facility] LAB V74.60 [id number] 07/19/2018 09:58:00 23:59:59 CLS Outpatient PRISCILA CHANDLER MD [facility] LAB N17.9,I10 [id number] 06/28/2018 13:55:00 018 23:59:59 CLS Outpatient TEREZA BRADEN MD [facility] LAB IRON DEF [id number] 05/21/2018 10:17:00 23:59:59 CLS Outpatient TONA URIOSTEGUI DO [facility] LAB ANEMIA-NOS [id number] 04/15/2018 02:33:00 05:40:00 DIS Emergency SHREYAS STARR, ANABELL Sandoval [facility] ER RECTAL BLEEDING ,VOMITING [id number] 03/14/2018 09:38:00 23:59:59 CLS Outpatient PRISCILA CHANDLER MD [facility] LAB N18.4 [id number] 01/10/2018 12:03:00 018 23:59:59 CLS Outpatient PRISCILA CHANDLER MD [facility] LAB RENAL FUNCTION PANEL [id number] 10/24/2017 09:59:00 018 23:59:59 CLS Outpatient TEREZA BRADEN MD [facility] LAB K74.60,Z79.899 [id number] 10/15/2017 12:45:00 018 23:59:59 CLS Outpatient PRISCILA CHANDLER MD [facility] LAB N18.3,E83.42,R6 0.9 [id number] 08/13/2017 08:46:00 018 23:59:59 CLS Outpatient TEREZA BRADEN MD [facility] LAB K71.60 [id number] 08/13/2017 08:41:00 018 23:59:59 CLS Outpatient PRISCILA CHANDLER MD [facility] LAB I12.9,N18.3,Z94 .4 [id number] 08/07/2017 07:10:00 018 23:59:59 CLS Outpatient PRISCILA CHANDLER MD [facility] LAB I12.9 N18.3 Z94 .4 [id number] 08/01/2017 09:02:00 018 23:59:59 CLS Outpatient PRISCILA CHANDLER MD [facility] LAB N18.3 [id number] 07/26/2017 07:13:00 018 23:59:59 CLS Preadmit PRISCILA CHANDLER MD [facility] RAD N18.3 CKD STAGE III [id number] 07/16/2017 09:11:00 018 12:35:00 DIS Emergency JOSS STARR, HELGA Joel [facility] ER DELIRIUM [id number] 03/29/2017 01:20:00 017 22:02:00 DIS Inpatient FREDIS STARR, RAMÍREZ [place] [facility] ICU PNEUMONITIS VS PNEUMONI A,REST DISTRESS,HYPOXIA, [id number] 03/28/2017 13:08:00 017 23:59:59 CLS Outpatient TEREZA BRADEN MD [facility] LAB R74.60 [id number] 03/28/2017 12:58:00 017 23:59:59 CLS Outpatient PRISCILA CHANDLER MD [facility] LAB N18.3 E55.9 I12 .9 R80.8 [id number] 03/16/2017 11:27:00 017 23:59:59 CLS Outpatient PRISCILA CHANDLER MD [facility] LAB N18.3 [id number] 03/05/2017 13:54:00 017 23:59:59 CLS Outpatient TEREZA BRADEN MD [facility] LAB K74.60 [id number] 03/05/2017 13:49:00 017 23:59:59 CLS Outpatient PRISCILA CHANDLER MD [facility] LAB CKD STAGE III [id number] 02/21/2017 14:20:00 017 23:59:59 CLS Outpatient PRISCILA CHANDLER MD [facility] LAB CKD STAGE III [id number] 02/21/2017 13:42:00 017 23:59:59 CLS Outpatient TEREZA BRADEN MD [facility] LAB K74.60 [id number] 01/30/2017 16:05:00 017 23:59:59 CLS Outpatient PRISCILA CHANDLER MD [facility] LAB CKD STAGE III [id number] 01/25/2017 13:00:00 017 23:59:59 CLS Outpatient PRISCILA CHANDLER MD [facility] LAB N18.3 [id number] 01/21/2017 19:45:00 017 20:06:00 DIS Emergency MXAIME AMAYA APRN [facility] ER SIDE AB PAIN [id number] 01/21/2017 09:54:00 017 10:55:00 DIS Emergency MAXIME AMAYA APRN [facility] ER R SIDE PAIN [id number] 01/08/2017 09:15:00 017 23:59:59 CLS Preadmit TEREZA BRADEN MD [facility] RAD POST LIVER TRANSPLANT,R UQ PAIN [id number] 12/26/2016 13:36:00 017 23:59:59 CLS Outpatient TEREZA BRADEN MD [facility] LAB K74.60 [id number] 12/21/2016 13:55:00 017 23:59:59 CLS Outpatient PRISCILA CHANDLER MD [facility] LAB N18.3 E55.9 E83 .42 J20 [id number] 11/28/2016 02:13:00 017 02:18:00 DIS Emergency JJ CORRAL DO [facility] ER NOT FEELING WELL,LIVER TRANSPLANT IN 2004 [id number] 11/27/2016 13:23:00 017 23:59:59 CLS Outpatient TEREZA BRADEN MD [facility] LAB POST TRANSPLANT [id number] 11/08/2016 12:53:00 23:59:59 CLS Outpatient TEREZA BRADEN MD [facility] LAB LOW MAGNESIUM [id number] 07/31/2016 12:48:00 23:59:59 CLS Outpatient EMELIA LOZOYA APRN [facility] RAD LUNG MASS,COPD [id number] 07/28/2016 10:03:00 23:59:59 CLS Outpatient TEREZA BRADEN MD [facility] RAD CIRRHOSIS [id number] 06/26/2016 16:10:00 23:59:59 CLS Outpatient EMELIA LOZOYA APRN [facility] RT COPD [id number] 05/24/2016 12:50:00 23:59:59 CLS Outpatient TEREZA BRADEN MD [facility] LAB UNSPECIFIED CIRRHOSIS O F LIVER [id number] 05/24/2016 13:48:00 14:31:00 DIS Outpatient RAMESH STARR, PRISCILA Vieira [facility] LAB CHRONIC LIVER D ISEASE, CKD, VIT D DEF, HYPERTHYROI [id number] 04/06/2016 10:24:00 00:01:00 DIS Outpatient TEREZA BRADEN MD [facility] LAB CHRONIC LIVER DISEASE, CKD, OTHER [id number] 02/01/2016 00:08:00 23:59:59 CLS Preadmit MARIA LUISA STARR, MICHAEL lew [facility] LAB HEPATIC CEPHALITIS [id number] 11/02/2015 13:41:00 00:01:00 DIS Outpatient MICHAEL GLASS MD [facility] LAB HEPATIC CEPHALITIS [id number] 12/13/2015 09:35:00 23:59:59 CLS Outpatient TEREZA BRADEN MD [facility] LAB Unspecified cirrhosis o f liver [id number] 11/08/2015 08:07:00 23:59:59 CLS Outpatient PRISCILA CHANDLER MD [facility] LAB [id number] 10/29/2015 09:40:00 23:59:59 CLS Outpatient TEREZA BRADEN MD [facility] LAB CHRONIC LIVER DISEASE, CKD, OTHER [id number] 10/29/2015 09:37:00 23:59:59 CLS Outpatient EDUARDO PALACIO [facility] Liver replaced by transplant,Long-term med use [id number] 10/29/2015 09:07:00 23:59:59 CLS Outpatient KIMBERLEY HILL DO [facility] RAD LUNG MASS,COPD [id number] 08/03/2015 08:56:00 23:59:59 CLS Outpatient MARJAN STANLEY DO [facility] RAD FUNGAL LUNG INFECTION [id number] 07/22/2015 13:44:00 09:58:00 DIS Inpatient MICHAEL GLASS MD [facility] 4TH FUNGAL LUNG INFECTION,S /P LIVER TRANSPLANT [id number] 07/22/2015 12:44:00 23:59:59 CLS Preadmit MICHAEL GLASS MD [id number] 07/22/2015 11:24:00 23:59:59 CLS Outpatient MICHAEL GLASS MD [facility] LAB HEPATIC CEPHALITIS [id number] 07/22/2015 11:07:00 23:59:59 CLS Outpatient MICHAEL GLASS MD [facility] RAD CHRONIC COUGH,ABD PAIN [id number] 06/30/2015 14:30:00 00:01:00 DIS Outpatient TEREZA BRADEN MD [facility] LAB CHRONIC LIVER DISEASE, CKD, OTHER [id number] 06/30/2015 13:41:00 00:01:00 DIS Outpatient TEREZA BRADEN MD [facility] LAB Liver replaced by trans plant,Long- term med use [id number] 04/07/2015 13:37:00 015 13:49:00 DIS Outpatient RAMESH STARR, PRISCILA Vieira [facility] LAB CKD STAGE III,HYPOMAGNESEMIA,VIT D DEFICIENCY [id number] 03/17/2015 10:29:00 015 00:01:00 DIS Outpatient TEREZA BRADEN MD [facility] LAB CHRONIC LIVER DISEASE, CKD, OTHER [id number] 03/17/2015 10:32:00 015 23:59:59 CLS Outpatient EDUARDO PALACIO [facility] LAB 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 def,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,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 [id number] 02/05/2015 14:20:00 015 00:01:00 DIS Outpatient TEREZA BRADEN MD [facility] CHRONIC LIVER DISEASE, CKD, OTHER [id number] 02/05/2015 14:22:00 23:59:59 CLS Outpatient MICHAEL GLASS MD [facility] LAB FEVER, LIVER DISEASE,LI BRIANA TRANSPLANT [id number] 01/05/2015 10:58:00 015 23:59:59 CLS Outpatient TEREZA BRADEN MD [facility] RAD POST LIVER TRANSPLANT,C IRROHSIS [id number] 11/18/2014 13:21:00 23:59:59 CLS Outpatient MICHAEL GLASS MD [facility] LAB CRAMPING, FEVER, LONG T ERM MED USE [id number] 11/18/2014 09:09:00 015 09:12:00 DIS Outpatient EDUARDO PALACIO [facility] LAB LIVER TRANSPLAN T [id number] 09/25/2014 09:57:00 015 00:01:00 DIS Outpatient TEREZA BRADEN MD [facility] LAB CHRONIC LIVER DISEASE, CKD, OTHER [id number] 08/18/2014 09:04:00 015 00:01:00 DIS Outpatient EDUARDO PALACIO [facility] LAB LIVER TRANSPLAN T [id number] 05/28/2014 07:53:00 00:01:00 DIS Outpatient TEREZA BRADEN MD [facility] LAB CHRONIC LIVER DISEASE, CKD, OTHER [id number] 05/28/2014 07:35:00 00:01:00 DIS Outpatient EDUARDO PALACOI [facility] LAB LIVER TRANSPLAN T [id number] 05/04/2014 15:02:00 23:59:59 CLS Outpatient RAMESH STARR, PRISCILA Vieira [facility] LAB CKD, VIT D DEFI CIENCY, HYPOMAGNESEMIA [id number] 04/21/2014 12:58:00 08:14:00 DIS Outpatient TEREZA BRADEN MD [facility] LAB CHRONIC KIDNEY DISEASE, OTHER SPECIFIED DISEASES [id number] 04/10/2014 13:15:00 11:06:00 DIS Inpatient MARIA LUISA STARR, MICHAEL Joel [facility] 4TH DEHYDRATION,ENCEPHALOTAPHIA,WEAKNESS [id number] 03/23/2014 09:34:00 23:59:59 CLS Outpatient RAMESH STARR, PRISCILA Vieira [facility] LAB CKD, VIT D DEFI CIENCY, HYPOMAGNESEMIA [id number] 02/10/2014 11:22:00 00:01:00 DIS Outpatient TEREZA BRADEN MD [facility] LAB CHRONIC KIDNEY DISEASE, OTHER SPECIFIED DISEASES [id number] 01/23/2014 07:42:00 00:01:00 DIS Outpatient EDUARDO PALACIO [facility] LAB LIVER TRANSPLAN T [id number] 12/02/2013 12:54:00 00:01:00 DIS Outpatient ANGELICA STARR, LOYDA Joel [facility] CARD IRREGULAR HEARTBEAT, CH RONIC RENAL DISEASE [id number] 01/26/2014 09:54:00 23:59:59 CLS Outpatient MICHAEL GLASS MD [facility] RAD RT LOWER BACK AND BUTTO CK PAIN [id number] 01/16/2014 11:27:00 23:59:59 CLS Outpatient MICHAEL GLASS MD [facility] RAD LOW BACK PAIN [id number] 12/29/2013 12:34:00 14:26:00 DIS Emergency MINERVA PA, SALOME Hernandez [facility] ER FALL/RIGHT HIP PAIN [id number] 11/17/2013 13:11:00 00:01:00 DIS Outpatient EDUARDO PALACIO [facility] LAB LIVER TRANSPLAN T [id number] 11/17/2013 13:10:00 00:01:00 DIS Outpatient TEREZA BRADEN MD [facility] LAB CHRONIC KIDNEY DISEASE, OTHER SPECIFIED DISEASES [id number] 11/17/2013 13:04:00 23:59:59 CLS Outpatient ANGELICA STARR, LOYDA Joel [facility] CARD IRREGULAR HEART BEAT,CRD,HYPERGLYCEMIA [id number] 10/29/2013 08:00:00 23:59:59 CLS Outpatient TEREZA BRADEN MD [facility] LAB LIVER TRANSPLANT, ELEVA PAVITHRA PROGRAF [id number] 10/06/2013 08:12:00 23:59:59 CLS Outpatient MICHAEL GLASS MD [facility] CARD ELECTROLYTES IMBALANCE,HYPOCALCEMIA [id number] 08/22/2013 07:15:00 00:01:00 DIS Outpatient ED[facility]ARDO PALACIO [facility] [facility] LAB LIVER TRANSPLAN T [id number] 08/22/2013 07:33:00 23:59:59 CLS Outpatient RAMESH STARR, PRISCILA Vieira [facility] LAB CKD III, HYPOKA LEMIA, HYPERPARATHYROIDISM,VIT D DE [id number] 08/08/2013 08:53:00 23:59:59 CLS Outpatient TEREZA BRADEN MD [facility] LAB POST LIVER TRANSPLANT [id number] 07/07/2013 10:13:00 18:50:00 DIS Inpatient MICHAEL GLASS MD [facility] 4TH PNEUMONIA,RUQ PAIN [id number] 05/22/2013 08:24:00 00:01:00 DIS Outpatient TEREZA BRADEN MD [facility] LAB CHRONIC KIDNEY DISEASE, OTHER SPECIFIED DISEASES [id number] 05/22/2013 08:24:00 00:01:00 DIS Outpatient EDUARDO PALACIO [facility] LAB LIVER TRANSPLAN T [id number] 04/24/2013 10:57:00 23:59:59 CLS Outpatient MICHAEL GLASS MD [facility] RAD RT ANKLE PAIN AND SWELL ING [id number] 04/18/2013 08:10:00 23:59:59 CLS Outpatient PRISCILA CHANDLER MD [facility] LAB CHRONIC KIDNEY DISEASE STAGE III [id number] 04/01/2013 10:29:00 12:02:00 DIS Outpatient EDUARDO PALACIO [facility] LAB TRANSPLANT [id number] 03/13/2013 11:35:00 00:01:00 DIS Outpatient TEREZA BRADEN MD [facility] LAB Other specified disease s,Chronic kidney disease, [id number] 02/12/2013 12:11:00 23:59:59 CLS Outpatient PRISCILA CHANDLER MD [facility] LAB LIVER TRANSPLAN T,VIT D DEFICIENCY [id number] 02/12/2013 12:11:00 23:59:59 CLS Outpatient MICHAEL GLASS MD [facility] LAB FATIGUE, YEARLY SCREENI NG [id number] 01/29/2013 22:53:00 23:15:00 DIS Emergency JJ CORRAL DO [facility] ER RT HAND/FINGER INJ [id number] 12/12/2012 11:43:00 23:59:59 CLS Outpatient TEREZA BRADEN MD [facility] LAB LIVER TRANSPLANT [id number] 11/28/2012 10:45:00 23:59:59 CLS Outpatient EDUARDO PALACIO [facility] ESLD [id number] 11/14/2012 11:00:00 23:59:59 CLS Outpatient PRISCILA CHANDLER MD [facility] END STAGE LIVER DISEASE, CKD [id number] 10/31/2012 11:25:00 23:59:59 CLS Outpatient PRISCILA CHANDLER MD [facility] ESLD, CKD [id number] 10/31/2012 11:25:00 23:59:59 CLS Outpatient EDUARDO PALACIO [facility] ESLD, CKD [id number] 12/06/2018 11:55:00 Document Registration [id number] 12/27/2015 00:00:00 Document Registration [id number] 07/22/2015 14:20:00 Document Registration [id number] 06/11/2015 15:15:00 Document Registration [id number] 06/11/2015 15:14:00 Document Registration [id number] 06/11/2015 15:14:00 Document Registration [id number] 06/11/2015 15:14:00 Document Registration [id number] 06/11/2015 15:14:00 Document Registration [id number] 06/11/2015 15:14:00 Document Registration [id number] 06/11/2015 15:14:00 Document Registration [id number] 09/25/2014 10:00:00 Document Registration [id number] 09/02/2014 10:04:00 Document Registration [id number] 03/03/2014 08:00:00 Document Registration [id number] 10/18/2012 10:20:00 Document Registration [id number] 10/17/2012 00:00:00 Document Registration [id number] 10/03/2012 10:55:00 Document Registration [id number] 09/19/2012 11:48:00 Document Registration [id number] 09/05/2012 11:26:00 Document Registration [id number] 08/23/2012 11:30:00 Document Registration [id number] 08/08/2012 11:45:00 Document Registration [id number] 07/19/2012 14:09:00 Document Registration [id number] 07/18/2012 10:45:00 Document Registration [id number] 07/11/2012 09:30:00 Document Registration [id number] 06/27/2012 10:10:00 Document Registration [id number] 06/13/2012 11:30:00 Document Registration [id number] 05/28/2012 10:25:00 Document Registration [id number] 05/16/2012 14:30:00 Document Registration [id number] 05/01/2012 10:20:00 Document Registration [id number] 04/18/2012 10:50:00 Document Registration [id number] 04/04/2012 11:40:00 Document Registration [id number] 03/21/2012 10:26:00 Document Registration [id number] 03/02/2012 10:55:00 Document Registration [id number] 03/01/2012 07:48:00 Document Registration [id number] 02/29/2012 09:30:00 Document Registration [id number] 02/23/2012 10:20:00 Document Registration [id number] 02/09/2012 10:00:00 Document Registration [id number] 02/01/2012 13:50:00 Document Registration [id number] 01/20/2012 18:52:00 Document Registration [id number] 01/19/2012 12:05:00 Document Registration [id number] 12/29/2011 12:00:00 Document Registration [id number] 12/14/2011 11:45:00 Document Registration [id number] 12/07/2011 11:00:00 Document Registration [id number] 11/30/2011 11:40:00 Document Registration [id number] 11/16/2011 12:00:00 Document Registration [id number] 11/02/2011 10:50:00 Document Registration [id number] 10/19/2011 12:55:00 Document Registration [id number] 10/06/2011 09:33:00 Document Registration [id number] 09/21/2011 11:00:00 Document Registration [id number] 09/07/2011 11:45:00 Document Registration [id number] 08/28/2011 08:57:00 Document Registration [id number] 08/24/2011 12:00:00 Document Registration [id number] 08/24/2011 12:00:00 Document Registration [id number] 08/10/2011 12:10:00 Document Registration [id number] 08/10/2011 11:30:00 Document Registration [id number] 07/26/2011 08:00:00 Document Registration [id number] 07/14/2011 09:15:00 Document Registration [id number] 06/27/2011 11:00:00 Document Registration [id number] 06/13/2011 10:45:00 Document Registration [id number] 05/30/2011 11:15:00 Document Registration [id number] 05/30/2011 11:15:00 Document Registration [id number] 05/12/2011 11:00:00 Document Registration [id number] 05/04/2011 11:10:00 Document Registration [id number] 05/04/2011 11:10:00 Document Registration [id number] 04/27/2011 11:30:00 Document Registration [id number] 04/13/2011 10:20:00 Document Registration [id number] 03/23/2011 11:00:00 Document Registration [id number] 03/08/2011 11:10:00 Document Registration [id number] 02/23/2011 04:03:00 Document Registration [id number] 02/09/2011 10:55:00 Document Registration [id number] 01/26/2011 14:15:00 Document Registration [id number] 01/12/2011 10:45:00 Document Registration [id number] 12/27/2010 10:00:00 Document Registration [id number] 12/13/2010 10:45:00 Document Registration [id number] 11/24/2010 11:50:00 Document Registration [id number] 11/09/2010 10:15:00 Document Registration [id number] 11/03/2010 11:20:00 Document Registration [id number] 10/28/2010 10:45:00 Document Registration [id number] 10/20/2010 11:35:00 Document Registration [id number] 10/20/2010 11:35:00 Document Registration [id number] 10/11/2010 11:55:00 Document Registration [id number] 10/04/2010 10:20:00 Document Registration [id number] 09/27/2010 10:10:00 Document Registration [id number] 09/27/2010 10:10:00 Document Registration [id number] 09/13/2010 10:15:00 Document Registration [id number] 09/06/2010 10:45:00 Document Registration [id number] 08/30/2010 10:45:00 Document Registration [id number] 08/30/2010 10:45:00 Document Registration [id number] 08/23/2010 10:30:00 Document Registration [id number] 08/18/2010 10:40:00 Document Registration [id number] 08/11/2010 11:15:00 Document Registration [id number] 08/02/2010 10:30:00 Document Registration [id number] 07/26/2010 11:30:00 Document Registration [id number] 07/19/2010 10:00:00 Document Registration [id number] 07/06/2010 16:25:00 Document Registration [id number] 07/05/2010 15:23:00 Document Registration [id number] 06/30/2010 10:37:00 Document Registration [id number] 05/23/2010 13:59:00 Document Registration [id number] 04/11/2010 11:00:00 Document Registration [id number] 03/21/2010 07:55:00 Document Registration [id number] 03/18/2010 11:48:00 Document Registration [id number] 02/15/2010 09:54:00 Document Registration [id number] 02/06/2010 03:26:00 Document Registration [id number] 02/01/2010 11:06:00 Document Registration [id number] 01/01/2010 10:12:00 Document Registration [id number] 10/26/2009 09:34:00 Document Registration [id number] 08/18/2009 00:00:00 Document Registration
[2019-10-12 09:47] LABS: BASOPHILS # (AUTO) 0.1 10^3/uL (0.0-0.1); BASOPHILS % (AUTO) 1 % (0-10); EOSINOPHILS % (AUTO) 9 % (0-10); LYMPHOCYTES # (AUTO) 2.6 X 10^3 (1.0-4.0); LYMPHOCYTES % (AUTO) 22 % (12-44); MEAN CORPUSCULAR HEMOGLOBIN 33 PG (25-34); MEAN CORPUSCULAR HGB CONC 32 G/DL (32-36); MEAN CORPUSCULAR VOLUME 105 FL (80-99); MONOCYTES % (AUTO) 17 % (0-12); NEUTROPHILS # (AUTO) 5.8 X 10^3 (1.8-7.8); NEUTROPHILS % (AUTO) 51 % (42-75); PLATELET COUNT 89 10^3/uL (130-400); RED CELL DISTRIBUTION WIDTH 15.9 % (10.0-14.5); WHITE BLOOD COUNT 11.5 10^3/uL (4.3-11.0)
[2019-10-12 09:51] LABS: HEMATOCRIT 19 % (40-54); HEMOGLOBIN 5.9 G/DL (13.3-17.7)
[2019-10-12 10:08] LABS: ALBUMIN 1.6 GM/DL (3.2-4.5); BILIRUBIN,TOTAL 0.7 MG/DL (0.1-1.0); CALCIUM 6.2 MG/DL (8.5-10.1); CREATININE SERUM 6.69 MG/DL (0.60-1.30); INR 1.6 (0.8-1.4); POTASSIUM 5.2 MMOL/L (3.6-5.0); PROTHROMBIN TIME PATIENT 20.2 SEC (12.2-14.7); TOTAL PROTEIN 3.3 GM/DL (6.4-8.2)
--- NOTE | 2019-10-12 10:21 | NUR ---
PT HAS GIVEN VERBAL CONSENT FOR BLOOD PRODUCTS
[2019-10-12 10:35] VITALS: BP 83/67
--- NOTE | 2019-10-12 10:46 | ED Abdominal Pain ---
General Chief Complaint: Rect Problems Stated Complaint: RECTAL BLEED Nursing Triage Note: PT ARRIVED PER EMS, PT HAS HAD LARGE AMOUNT OF RECTAL BLEEDING THIS AM. PT CO OF WEAKNESS. PT HAS R SIDED PORT ACCESSED BY EMS. PT CO OF NECK PAIN AND R UPPER ABD PAIN. PT HAS HX OF LIVER TRANSPLANT AND IS CURRENTLY TAKING DIALYSIS 3 X'S WEEKLY. PT IS AFEBRILE AND HAS NOT TRAVEL EXCEPT FOR DIALYSIS. Sepsis Screen: No Definite Risk Source of Information: Patient Exam Limitations: No Limitations History of Present Illness Date Seen by Provider: Oct 12, 2019 Time Seen by Provider: 09:30 Initial Comments This 64-year-old gentleman presents to the emergency room via EMS after having a syncopal episode with collapse and a rectal bleeding since 04:00. He is a dialysis patient who sees Dr. Dillon. He also has had a liver transplant and sees Dr. Miller. He reports pain on the right side of his chest and abdomen. He is alert and oriented. He has abrasions on the bridge of his nose. He denies neck pain and refuses a c-collar. EMS reports he was hypotensive on scene with blood pressures in the 70s and 80s systolic. He received 500 mL of normal saline and now has blood pressures in the 90s systolic. The significant collapse occurred after the rectal bleeding started. He does not have any active bleeding on arrival. He reports a history of gastric ulcers. EMS reported the results significant amount of blood on scene. He reports tetanus immunization within the past 5 years. Allergies and Home Medications Allergies Coded Allergies: Heparin Analogues (Verified Allergy, Mild, 07/22/15) codeine (Verified Allergy, Unknown, TAKES OXYCODONE AT HOME, 07/22/15) fentanyl (Verified Allergy, Unknown, 07/22/15) sumatriptan (Verified Allergy, Unknown, 07/22/15) zolpidem (Verified Allergy, Unknown, 07/22/15) Uncoded Allergies: NSADS (Allergy, Unknown, 04/10/14) CONTRAST DYE/RADIOLOGY DYE (Adverse Reaction, Unknown, 04/10/14) DUE TO KIDNEY FUNCTION Home Medications Albuterol Sulfate 2.5 Mg/3 Ml Vial.neb, 2.5 MG INH Q4H PRN for WHEEZING Prescribed by: FRANCISCO MARES on 08/30/19 0931 Budesonide/Formoterol Fumarate 10.2 Gm Hfa.aer.ad, 2 PUFF IH BID PRN for SHORTNESS OF BREATH, (Reported) Cholecalciferol (Vitamin D3) 2,000 Unit Capsule, 2,000 UNIT PO BID, (Reported) Diazepam 10 Mg Tablet, 10 MG PO HS PRN for ANXIETY, (Reported) Lactulose 10 Gm/15 Ml Solution, 45 ML PO QID PRN for HIGH AMMONIA LEVELS, (Reported) LAST FILLED #1892 ML 10-17-16 Magnesium Oxide 500 Mg Tablet, 500 MG PO BID, (Reported) Methylphenidate HCl 10 Mg Tablet, 10 MG PO DAILY, (Reported) Methylphenidate HCl 10 Mg Tablet, 10 MG PO TID PRN for ENERGY, (Reported) Nadolol 40 Mg Tablet, 40 MG PO HS, (Reported) Oxycodone HCl 80 Mg Tab.er.12h, 80 MG PO TID PRN for PAIN-SEVERE, (Reported) Oxycodone HCl 30 Mg Tablet, 30 MG PO Q4H PRN for PAIN-BREAKTHROUGH, (Reported) Potassium Chloride 10 Meq Tablet.er, 10 MEQ PO BID, (Reported) LAST FILLED #60 02-13-17 Prednisone 20 Mg Tab, 40 MG PO DAILY Prescribed by: FRANCISCO MARES on 08/30/19 0931 Rifaximin 550 Mg Tablet, 550 MG PO BID, (Reported) LAST FILLED #60 02-13-17 Sennosides/Docusate Sodium 1 Each Tablet, 2 TAB PO BID, (Reported) Tacrolimus 0.5 Mg Capsule, 0.5 MG PO BID, (Reported) LAST FILLED #90 02-13-17 Patient Home Medication List Home Medication List Reviewed: Yes Review of Systems Review of Systems Constitutional: no symptoms reported EENTM: No Symptoms Reported Respiratory: No Symptoms Reported Cardiovascular: See HPI Gastrointestinal: See HPI Genitourinary: See HPI Musculoskeletal: see HPI Skin: see HPI Psychiatric/Neurological: See HPI Endocrine: No Symptoms Reported Hematologic/Lymphatic: No Symptoms Reported Past Bsssfgv-Emvqyl-Qqdbxg Hx Past Med/Social Hx: Reviewed Nursing Past Med/Soc Hx Patient Social History Alcohol Use: Denies Use Recreational Drug Use: No Smoking Status: Former Smoker Type Used: Cigarettes 2nd Hand Smoke Exposure: Yes Recent Foreign Travel: No Contact w/Someone Who Travel: No Recent Infectious Disease Expo: No Recent Hopitalizations: No Physical Abuse: No Sexual Abuse: No Immunizations Up To Date Tetanus Booster (TDap): Less than 5yrs PED Vaccines UTD: No Date of Pneumonia Vaccine: May 09, 2015 Date of Influenza Vaccine: Jul 22, 2015 Seasonal Allergies Seasonal Allergies: No Past Medical History Surgeries: Yes (LIVER TRANSPLANT 2004. BROKEN LEFT ARM 2011. PORT PLACEMENT. LIVER SHUNT) Liver Transplant Respiratory: Yes Asthma, COPD, Emphysema Currently Using CPAP: No Currently Using BIPAP: No Cardiac: Yes (AORTIC ANEURYSM ) Aneurysm, Hypertension Neurological: No Reproductive Disorders: No Sexually Transmitted Disease: No HIV/AIDS: No Genitourinary: Yes Renal Failure, Dialysis Gastrointestinal: Yes (chronic abdominal pain) Liver Disease/Jaundice, Hepatitis, Ulcer, Gall Bladder Disease Musculoskeletal: Yes ( right dislocated shoulder, broken arm age 13 & 3 years ago , siatica nerve) Arthritis, Fractures Endocrine: No HEENT: No Loss of Vision: Denies Hearing Impairment: Hard of Hearing Cancer: Yes Liver Psychosocial: Yes Anxiety, Depression Integumentary: Yes Recent Skin Changes Blood Disorders: No Adverse Reaction/Blood Tranf: No Family Medical History Not obtainable due to adoption Physical Exam Vital Signs Vital Signs - First Documented 10/12/19 09:30 Temp 37.0 Pulse 58 Resp 20 B/P (MAP) 98/59 (72) Pulse Ox 96 O2 Delivery Room Air Capillary Refill : Less Than 3 Seconds Height/Weight/BMI Height: 6'2.00" Weight: 173lbs. 3.0oz. 78.168186ar; 23.00 BMI Method:Stated General Appearance: WD/WN, mild distress HEENT: PERRL/EOMI, other (abrasion and bruising over the bridge of the nose) Neck: non-tender, normal inspection Respiratory: lungs clear, normal breath sounds, no respiratory distress, no accessory muscle use Cardiovascular: regular rate, rhythm, no edema, no murmur, other (tenderness over the right lower chest) Gastrointestinal: normal bowel sounds, soft; No distended; tenderness (tenderness over the right abdomen) Extremities: non-tender, normal inspection, no pedal edema, pelvis stable, other (no hip tenderness or pain with rotation) Neurologic/Psychiatric: echocardiography tech II-XII nml as tested, no motor/sensory deficits, alert, normal mood/affect, oriented x 3 Skin: normal color, warm/dry, other (abrasion and ecchymosis on the nose) Progress/Results/Core Measures Results/Orders Lab Results Laboratory Tests Test 10/12/19 09:38 Range/Units White Blood Count 11.5 H 4.3-11.0 10^3/uL Red Blood Count 1.78 L 4.35-5.85 10^6/uL Hemoglobin 5.9 *L 13.3-17.7 G/DL Hematocrit 19 *L 40-54 % Mean Corpuscular Volume 105 H 80-99 FL Mean Corpuscular Hemoglobin 33 25-34 PG Mean Corpuscular Hemoglobin Concent 32 32-36 G/DL Red Cell Distribution Width 15.9 H 10.0-14.5 % Platelet Count 89 L 130-400 10^3/uL Mean Platelet Volume 11.0 H 7.4-10.4 FL Neutrophils (%) (Auto) 51 42-75 % Lymphocytes (%) (Auto) 22 12-44 % Monocytes (%) (Auto) 17 H 0-12 % Eosinophils (%) (Auto) 9 0-10 % Basophils (%) (Auto) 1 0-10 % Neutrophils # (Auto) 5.8 1.8-7.8 X 10^3 Lymphocytes # (Auto) 2.6 1.0-4.0 X 10^3 Monocytes # (Auto) 2.0 H 0.0-1.0 X 10^3 Eosinophils # (Auto) 1.0 H 0.0-0.3 10^3/uL Basophils # (Auto) 0.1 0.0-0.1 10^3/uL Prothrombin Time 20.2 H 12.2-14.7 SEC INR Comment 1.6 H 0.8-1.4 Activated Partial Thromboplast Time 91 H 24-35 SEC Sodium Level 138 135-145 MMOL/L Potassium Level 5.2 H 3.6-5.0 MMOL/L Chloride Level 107 98-107 MMOL/L Carbon Dioxide Level 25 21-32 MMOL/L Anion Gap 6 5-14 MMOL/L Blood Urea Nitrogen 41 H 7-18 MG/DL Creatinine 6.69 H 0.60-1.30 MG/DL Estimat Glomerular Filtration Rate 8 BUN/Creatinine Ratio 6 Glucose Level 110 H 70-105 MG/DL Calcium Level 6.2 L 8.5-10.1 MG/DL Corrected Calcium 8.1 L 8.5-10.1 MG/DL Total Bilirubin 0.7 0.1-1.0 MG/DL Aspartate Amino Transf (AST/SGOT) 19 5-34 U/L Alanine Aminotransferase (ALT/SGPT) 11 0-55 U/L Alkaline Phosphatase 84 40-136 U/L C-Reactive Protein High Sensitivity 1.00 H 0.00-0.50 MG/DL Total Protein 3.3 L 6.4-8.2 GM/DL Albumin 1.6 L 3.2-4.5 GM/DL My Orders Orders - ANABELL PRITCHETT MD Ct Head/Face/Cervical Wo (10/12/19 09:38) Ct Chest/Abdomen/Pelvis Wo (10/12/19 09:38) Cbc With Automated Diff (10/12/19 09:38) Comprehensive Metabolic Panel (10/12/19 09:38) Hs C Reactive Protein (10/12/19 09:38) Protime With Inr (10/12/19 09:38) Partial Thromboplastin Time (10/12/19 09:38) Ua Culture If Indicated (10/12/19 09:38) Morphine Injection (Morphine Injection (10/12/19 09:40) Red Cells Leukocytes Reduced (10/12/19 09:41) Type And Screen (10/12/19 09:41) Morphine Injection (Morphine Injection (10/12/19 10:29) Vital Signs/I&O 10/12/19 10/12/19 10/12/19 09:30 10:35 11:36 Temp 37.0 36.1 Pulse 58 52 51 Resp 20 10 13 B/P (MAP) 98/59 (72) 83/67 108/56 Pulse Ox 96 97 97 O2 Delivery Room Air Blood Pressure Mean: 72 Progress Progress Note #1: Time: 10:50 Progress Note Due to patient's fall and pain complaints, CT from the head through the pelvis was obtained. Report is pending. Hemoglobin was found to be 5.9. 2 units of packed red blood cells have been crossmatched and one is infusing at present. IV fluids were run until that time to maintain systolic blood pressure greater than 90. Progress Note #2: Time: 11:37 Progress Note Patient remained stable. He is receiving a unit of packed red blood cells. Case was discussed with Dr. Conde in the [place] emergency room. He accepts transfer. He did not request any further treatments at this time. She was resting comfortably at this time. Images were uploaded to the cloud for accessed by [facility]. Progress Note #3: Time: 12:35 Progress Note EMS is now here to transport patient. He had received morphine 2 mg IV and m orphine 4 mg IV. He is receiving one more dose of morphine 4 mg prior to transport. He is accustomed to using oxycodone at home. Diagnostic Imaging Diagonstic Imaging: CT Plain Films/CT/US/NM/MRI: chest, abdomen, pelvis Comments CT chest, abdomen and pelvis viewed by me and report reviewed. See report below: NAME: MONICA LORD [facility] REC#: [id number] PT STATUS: REG ER : 1955 PHYSICIAN: ANABELL PRITCHETT MD ADMIT DATE: 10/12/19/ER Signed Date of Exam:10/12/19 CT CHEST/ABDOMEN/PELVIS WO PROCEDURE: CT chest, abdomen, and pelvis without contrast. TECHNIQUE: Multiple contiguous axial images were obtained through the chest, abdomen, and pelvis without the use of intravenous contrast. Auto Exposure Controls were utilized during the CT exam to meet ALARA standards for radiation dose reduction. INDICATION: Rectal bleeding with abdominal pain in patient with previous liver transplantation. Comparison is made to study of 03/29/2017. CT CHEST: There is mild centrilobular emphysema in the lungs with an upper lobe predominance. No consolidation is detected. There is no significant pleural or pericardial fluid. There are prominent left axillary lymph nodes similar to the previous study. Right anterior chest wall port is also in place. There is no significant pleural or pericardial fluid. Mild degenerative findings are present in the thoracic spine. IMPRESSION: Background emphysema with mildly prominent left axillary lymph nodes. Findings have not significantly changed. CT ABDOMEN AND PELVIS: Similar to the previous study, there is mild heterogeneous appearance to the transplanted liver. Portosystemic intrahepatic shunt remains in place. This is incompletely evaluated without contrast. There is dilatation of main portal vein. No definite pancreatic, adrenal gland or splenic lesion is identified. No definite adrenal gland or renal lesion is appreciated. There is mild aortoiliac atherosclerotic calcification. Bladder is incompletely distended which limits evaluation. There is extensive mural thickening within the sigmoid colon and rectum. No significant peritoneal free fluid is identified. There is no evidence of organized fluid collection or focal inflammation. IMPRESSION: Diffuse mural thickening involving distal colon and rectum may represent coloproctitis. This could be infectious although clinical correlation is recommended. Otherwise, stable appearance of transplanted liver on noncontrasted study. No new abnormality is seen elsewhere in the abdomen or pelvis. Dictated by: Dictated on workstation # [id number] Dict: 10/12/19 1036 Trans: 10/12/19 1046 CV [id number] Interpreted by: FIORDALIZA CORREIA MD Electronically signed by: FIORDALIZA CORREIA MD 10/12/19 1046 Diagonstic Imaging: CT Plain Films/CT/US/NM/MRI: facial bones, c-spine, head Comments CT head, face, and cervical spine viewed by me and report reviewed. See report below: NAME: MONICA LORD [facility] REC#: [id number] PT STATUS: REG ER : 1955 PHYSICIAN: ANABELL PRITCHETT MD ADMIT DATE: 10/12/19/ER Draft Date of Exam:10/12/19 CT HEAD/FACE/CERVICAL WO PROCEDURE: CT head, face, and cervical spine without contrast. TECHNIQUE: Multiple contiguous axial images were obtained through the head, neck, and facial bones without the use of intravenous contrast. Sagittal and coronal reformations through the cervical spine and facial bones were also performed. Auto Exposure Controls were utilized during the CT exam to meet ALARA standards for radiation dose reduction. INDICATION: Weakness, neck pain, rectal bleeding. COMPARISON: 03/29/2017 FINDINGS: CT HEAD: The ventricles and cortical sulci appear age-appropriate. There is no midline shift or mass effect. No CT evidence of acute territorial ischemia is seen. The calvarium appears intact. No acute intracranial hemorrhage is seen. CT FACE: The pterygoid plates are intact. The zygomatic arches are intact. The mandible appears intact and normal in alignment. The maxillary sinuses are intact. The orbits appear intact. The globes are intact. No post septal edema is seen. The paranasal sinuses are clear. CT CERVICAL SPINE: No acute fracture is seen in the cervical spine. There is trace retrolisthesis at C4-C5 and C5-C6. There are moderate degenerative changes at C4-C5 and C5-C6. Vertebral body heights are preserved. There is scarring in paraseptal emphysematous changes in the lung apices. The soft tissues about the cervical spine demonstrate no acute abnormality. IMPRESSION: 1. No acute intracranial hemorrhage or calvarial fracture. No CT evidence of acute territorial ischemia. 2. No facial fracture is seen. 3. Degenerative changes in the cervical spine with no acute fracture seen. Dictated on workstation # [id number] Dict: 10/12/19 1036 Trans: 10/12/19 1047 CV [id number] Interpreted by: TORI JAQUEZ MD Departure Impression Primary Impression: Severe anemia Additional Impressions: Syncope and collapse GI bleed Qualified Codes: K92.2 - Gastrointestinal hemorrhage, unspecified End stage renal failure on dialysis History of liver transplant Right-sided chest wall pain Right sided abdominal pain Disposition: T-[facility] Condition: Stable Transfer Transfer Reason: Exceeds level of care Time Spoke to Accepting Phy: 11:20 Transfer Progress Notes Transfer needs to go directly to the emergency room due to involvement of trauma. Case was discussed with Dr. Sony Conde who accepts transfer. Transfer Time: 12:36 Transfer Facility: [facility] Method of Transfer: EMS Departure-Patient Inst. Referrals: TEREZA JAVIER MD (PCP/Family) Primary Care Physician Copy Copies To 1: TEREZA JAVIER MD, JOSHUA T MD Oct 12, 2019 10:46
--- NOTE | 2019-10-12 11:22 | NUR ---
[facility] EMS NOTIFIED OF TRANSFER
[2019-10-12 11:36] VITALS: BP 108/56
--- NOTE | 2019-10-12 11:55 | NUR ---
PT HAS HAD 2 MOD SIZED BLOODY STOOLS SINCE ED ADMISSION
--- NOTE | 2019-10-12 12:12 | NUR ---
PT HAS RECIEVED A TOTAL AMOUNT OF 1000CC NS THIS INCLUDES 400CC FROM EMS
== END 2019-10-12 12:41 | disposition short-term general hospital (02) ==
LOC: EDUNIT# 09:29 → ER 09:30
DX: K92.2 Gastrointestinal hemorrhage, unspecified (principal); Z94.4 Liver transplant status; Z99.2 Dependence on renal dialysis; J43.9 Emphysema, unspecified; I12.0 Hypertensive chronic kidney disease with stage 5 chronic kidney disease or end stage renal disease; N18.6 End stage renal disease; M19.91 Primary osteoarthritis, unspecified site; F41.9 Anxiety disorder, unspecified; F32.9 Major depressive disorder, single episode, unspecified; R07.89 Other chest pain; Z79.899 Other long term (current) drug therapy
CPT/HCPCS: 36415; 36430; 70450; 70486; 71250; 72125; 74176; 80053; 85025; 85610; 85730; 86141; 86850; 86900; 86901; 86920